=== PATIENT | female | born 1945 | race Caucasian/White ===

== ENCOUNTER 2019-03-14 06:00 | Outpatient (RCR) | payer MEDICARE, MEDICAID, SELFPAY | END 2019-04-13 00:01 | LOC: SPT 06:00 | PROVIDERS: Family Provider Family Medicine; Visit Provider Specialist | DX: M48.062 Spinal stenosis, lumbar region with neurogenic claudication (principal) | CPT/HCPCS: 97110 ×5; 97112 ×4; 97140; 97530 ==

== ENCOUNTER 2019-04-14 13:11 | Outpatient (RCR) | payer MEDICARE, MEDICAID, SELFPAY | END 2019-05-14 23:59 | disposition home or self-care (01) | LOC: SPT 13:11 | PROVIDERS: Family Provider Family Medicine; Visit Provider Specialist | DX: M48.062 Spinal stenosis, lumbar region with neurogenic claudication (principal) | CPT/HCPCS: 97110; 97112; 97140; 97530 ==

== ENCOUNTER 2019-04-15 10:55 | Inpatient (IN) | payer MEDICARE, MEDICAID, SELFPAY ==
[2019-04-15] VITALS (9 sets, daily range): BP systolic 143–155; BP diastolic 61–68; PULSE 59–89; RESP 16–22; TEMP 36.4–37.1; O2SAT 91–99; BMI 25.4
--- NOTE | 2019-04-15 11:15 | ED_ITS ---
Entered by Amanda Cheung, acting as scribe for HPI - Chest Pain General: Chief Complaint: Chest Pain Stated Complaint: Sent by doctor to have test Time Seen by Provider: 04/15/19 11:18 Source: patient Mode of arrival: ambulatory History of Present Illness: HPI narrative: 73 yo Female presents to ED with complaint of chest pain. Pt states that she was sent to the ED by Dr. Palacio to get checked out. Pt states that she has had open heart surgery before and has 2 stents in her carotid. Pt's family states that the patient has a leaking mitral valve. Pt describes pain as an ache that normally happens at night. Pt's family states that patient has also been having dizzy spells. Pt states that she can't stand up and feels like she is going to fall over. Pt states it feels like she might pass out. Pt states that her recently had a stroke and is home now but she has been under a lot of stress. Pt states that her symptoms have resolved now and she feels relaxed. Pt states she has had an aortic valve replacement. MD complaint: chest pain (aching) Pertinent past history: CABG Prior episodes: Yes Quality: tightness and aching Associated symptoms: Reports nausea; Deny abdominal pain, diaphoresis, dyspnea, fever(s) or vomiting Risk Factors: Coronary artery disease risk factors: hypertension Review of Systems General: Reports: 10 or more systems reviewed and unremarkable except in HPI and below Const: Denies: fever, chills, body aches, change in appetite, change in weight, fatigue, malaise, night sweats, diaphoresis, change in sleep pattern, daytime sleepiness or snoring Card: Reports: chest pain, lightheadedness and pre-syncope; Denies: edema, swelling of feet/ankles, shortness of breath on exertion, shortness of breath when lying down, leg pain with exertion or bluish discoloration of hands/feet Resp: Denies: shortness of breath, productive cough, non-productive cough, wheezing, stridor, pain on inspiration, change in phlegm color, coughing up blood or chest congestion GI: Reports: nausea; Denies: abdominal pain, vomiting, vomiting blood, coffee grounds in vomit, difficulty swallowing, heartburn/indigestion, feeling full early, diarrhea, con stipation, bloating, cramping, belching, excessive passing of gas, fecal incontinence, change in bowel habits, change in stool character, blood in stool or black tarry stool Neuro: Reports: dizziness PFSH ED PFSH: Statuses (acute, chronic, etc) shown below reflect problem list status as previously entered and may not be historically accurate Social History Smoking and tobacco status: former smoker Physical Exam Const: COMMON NORMALS: no apparent distress, average body habitus, oriented x3, no limitations, healthy appearing, alert and well nourished HENMT: COMMON NORMALS: normocephalic, EAC's normal, TM's normal bilaterally, external nose normal, moist oral mucous membranes, oropharynx normal and gingiva normal HEAD & SCALP: normocephalic NOSE: external nose normal EXTERNAL AUDITORY CANAL: EAC's normal TYMPANIC MEMBRANE: TM's normal bilaterally Neck/C-Spine: COMMON NORMALS: full ROM, supple and no JVD Resp: COMMON NORMALS: normal respiratory effort, no use of accessory muscles and percussion normal PERCUSSION: percussion normal Cardio: COMMON NORMALS: no JVD, regular rate, regular rhythm, S1 normal heart sound and S2 normal heart sound; negative for no murmurs (Harsh murmur - LLSB) RATE: regular rate RHYTHM: regular rhythm HEART SOUNDS: S1 normal and S2 normal GI: COMMON NORMALS: normal to inspection, nondistended, normoactive bowel sounds, soft to palpation, non-tender, no hepatosplenomegaly, no masses and no bruits PALPATION: Yes soft and Yes no hepatosplenomegaly Extremity: COMMON NORMALS: normal to inspection, full ROM, normal capillary refill and no pedal edema Neuro: COMMON NORMALS: oriented x3 SENSORIUM/ORIENTATION: Yes alert Skin: COMMON NORMALS: no rashes or lesions noted, no wounds, skin turgor normal, no jaundice, no petechiae and no mottling GENERAL SKIN EXAM: no rashes or lesions noted and turgor normal Course Vital Signs: Vital signs: Vital Signs Temperature 97.7 F 04/15/19 11:07 Pulse Rate 60 04/15/19 11:07 Respiratory Rate 16 04/15/19 11:07 Blood Pressure 148/65 04/15/19 11:07 Pulse Oximetry 91 04/15/19 11:07 MDM - Chest Pain MDM Narrative: Medical decision making narrative: 73-year-old female in with concerns of shortness of breath and some chest discomfort that is been longstanding. The patient had an extensive work-up here and had a negative d- dimer was found to be hypoxic and placed on supplemental oxygen which we were unable to wean her chest x-ray showed some pulmonary vascular congestion her BNP was. I suspect she has some valvular heart disease resulting in pulmonary edema. She has a subtherapeutic INR as well. I gave her extra dose of warfarin and some Lasix hep-locked her IV and talked with Dr. Palacio who was agreeable to admission in the hospital for further work-up treatment and management. Lab Data: Labs: Lab Results 04/15/19 04/15/19 04/15/19 Range/Units 12:04 12:04 12:04 WBC 8.5 (4.0-10.0) 10^3/ uL RBC 3.34 L (4.1-5.3) 10^6/u L Hgb 9.6 L (11.5-15.3) g/dL Hct 30.7 L (37.0-47.0) % MCV 91.9 (81-99) fL MCH 28.7 (28.0-34.0) pg MCHC 31.3 (30.0-36.0) g/dL RDW 14.5 (12.1-15.1) % Plt Count 227 (130-400) 10^3/c mm MPV 9.3 (7.4-10.4) fL Neut % (Auto) 79.6 % Lymph % (Auto) 10.9 % Lewis % (Auto) 7.2 % Eos % (Auto) 1.4 % Baso % (Auto) 0.4 % Neut # (Auto) 6.7 (1.8-7.7) 10^3/u L Lymph # (Auto) 0.9 (0.8-4.8) 10^3/u L Lewis # (Auto) 0.6 (0.2-0.9) 10^3/u L Eos # (Auto) 0.1 (0.0-0.8) 10^3/u L Baso # (Auto) 0.0 (0.0-0.1) 10^3/u L Nucleated RBC % (a uto) 0 % Nucleated RBCs # 0.0 /100WBC PT 20.00 H (10.5-13.3) SECO NDS INR 1.64 H (0.8-1.2) D-Dimer 0.59 (0-0.59) ug/mIFE U Sodium 139 (136-145) mmol/L Potassium 3.9 (3.5-5.1) mmol/L Chloride 105 (98-107) mmol/L Carbon Dioxide 23 (22-29) mmol/L Anion Gap 14.9 (5-19) BUN 17 (8-23) mg/dL Creatinine 1.0 H (0.5-0.9) mg/dL Glucose 109 H (74-106) mg/dL Calcium 9.4 (8.8-10.2) mg/Dl Total Bilirubin 0.5 (0.15-1.2) mg/dL AST 20 (0-32) U/L ALT 15 (0-33) U/L Alkaline Phosphata se 66 (35-105) IU/L Troponin T Baselin e (0-10) ng/mL NT-Pro-B Natriuret Pep 1767 H (0-125) pg/mL Total Protein 6.4 L (6.6-8.7) g/dL Albumin 4.4 (3.5-5.2) g/dL Globulin 2.0 (1.3-4.6) g/dL 04/15/19 Range/Units 12:04 WBC (4.0-10.0) 10^3/ uL RBC (4.1-5.3) 10^6/u L Hgb (11.5-15.3) g/dL Hct (37.0-47.0) % MCV (81-99) fL MCH (28.0-34.0) pg MCHC (30.0-36.0) g/dL RDW (12.1-15.1) % Plt Count (130-400) 10^3/c mm MPV (7.4-10.4) fL Neut % (Auto) % Lymph % (Auto) % Lewis % (Auto) % Eos % (Auto) % Baso % (Auto) % Neut # (Auto) (1.8-7.7) 10^3/u L Lymph # (Auto) (0.8-4.8) 10^3/u L Lewis # (Auto) (0.2-0.9) 10^3/u L Eos # (Auto) (0.0-0.8) 10^3/u L Baso # (Auto) (0.0-0.1) 10^3/u L Nucleated RBC % (a uto) % Nucleated RBCs # /100WBC PT (10.5-13.3) SECO NDS INR (0.8-1.2) D-Dimer (0-0.59) ug/mIFE U Sodium (136-145) mmol/L Potassium (3.5-5.1) mmol/L Chloride (98-107) mmol/L Carbon Dioxide (22-29) mmol/L Anion Gap (5-19) BUN (8-23) mg/dL Creatinine (0.5-0.9) mg/dL Glucose (74-106) mg/dL Calcium (8.8-10.2) mg/Dl Total Bilirubin (0.15-1.2) mg/dL AST (0-32) U/L ALT (0-33) U/L Alkaline Phosphata se (35-105) IU/L Troponin T Baselin e 15 H (0-10) ng/mL NT-Pro-B Natriuret Pep (0-125) pg/mL Total Protein (6.6-8.7) g/dL Albumin (3.5-5.2) g/dL Globulin (1.3-4.6) g/dL Discharge Plan Discharge Patient Disposition: Admitted As Inpatient Clinical Impression: Respiratory failure with hypoxia Qualifiers: Chronicity: acute Qualified Code(s): J96.01 - Acute respiratory failure with hypoxia Condition: Stable Referrals: Ruy Palacio MD [Family Provider] - Coding Level of Care Code ED Supervisor Airplane Flight Attendant for Chg Fwd Exam Problem Focused The documentation recorded by the Jonatan almazan Carmen, accurately reflects the service I personally performed and the decisions made by Bell juárez Charlie, DO
--- NOTE | 2019-04-15 11:28 | ECG_ITS ---
Measurements Intervals [place] Rate: 58 P: 82 [place]: 165 QRS: 3 QRSD: 121 T: 55 QT: 484 QTc: 475 SINUS BRADYCARDIA POSSIBLE RIGHT VENTRICULAR CONDUCTION DELAY [RSR (QR) IN V1/V2] PROLONGED QT INTERVAL Compared to ECG 11/07/2018 20:34:05 Prolonged QT interval now present Sinus arrhythmia no longer present Incomplete right bundle-branch block no longer present Myocardial infarct finding no longer present Electronically Signed On 04-15-2019 17:09:00 INTERNET MARKETING STRATEGIST by Arely Luevano M.D. [id number]
--- NOTE | 2019-04-15 11:28 | XR_ITS ---
WS: [id number] Portable AP upright chest, 04/15/2019 Clinical Data: Chest pain Comparison: Portable chest, 11/07/2018. Findings: No nodules, masses or effusions are seen. There is blunting of the left costophrenic angle unchanged. The heart is slightly enlarged. The pulmonary vascularity is minimally prominent. Midline sternotomy sutures are present. There is a left carotid stent. No pneumonia or pneumothorax is seen. XR/XR chest 1V portable [id number] Impression: 1. Mild cardiomegaly and minimal pulmonary vascular congestion. 2. Atherosclerosis.
--- NOTE | 2019-04-15 11:33 | PC.NURSE ---
Patient states chest pain has been intermittent for 6+ years now.
[2019-04-15 12:16] LABS: Basophils % 0.4 %; Eosinophils # 0.1 10^3/uL (0.0-0.8); Eosinophils % 1.4 %; Hematocrit 30.7 % (37.0-47.0); Hemoglobin 9.6 g/dL (11.5-15.3); Lymphocytes # 0.9 10^3/uL (0.8-4.8); Lymphocytes % 10.9 %; Mean Corpuscular HGB Conc 31.3 g/dL (30.0-36.0); Mean Corpuscular Hemoglobin 28.7 pg (28.0-34.0); Mean Corpuscular Volume 91.9 fL (81-99); Mean Platelet Volume 9.3 fL (7.4-10.4); Monocytes # 0.6 10^3/uL (0.2-0.9); Monocytes % 7.2 %; Neutrophils # 6.7 10^3/uL (1.8-7.7); Neutrophils % 79.6 %; Nucleated Red Blood Cells % 0 %; Platelet Count 227 10^3/cmm (130-400); Red Blood Count 3.34 10^6/uL (4.1-5.3); Red Cell Distribution Width 14.5 % (12.1-15.1); White Blood Count 8.5 10^3/uL (4.0-10.0)
[2019-04-15 12:34] LABS: INR 1.64 (0.8-1.2)
[2019-04-15 12:36] LABS: D Dimer 0.59 ug/mIFEU (0-0.59)
[2019-04-15 12:52] LABS: Alanine Aminotransferase 15 U/L (0-33); Albumin Level 4.4 g/dL (3.5-5.2); Alkaline Phosphatase 66 IU/L (35-105); Anion Gap 14.9 (5-19); Aspartate Amino Transferase 20 U/L (0-32); Blood Urea Nitrogen 17 mg/dL (8-23); Calcium 9.4 mg/Dl (8.8-10.2); Carbon Dioxide 23 mmol/L (22-29); Chloride 105 mmol/L (98-107); Glucose 109 mg/dL (74-106); NT Pro B Type Natriuretic Pept 1767 pg/mL (0-125); Potassium 3.9 mmol/L (3.5-5.1); Sodium 139 mmol/L (136-145); Total Bilirubin 0.5 mg/dL (0.15-1.2); Total Protein 6.4 g/dL (6.6-8.7)
[2019-04-15] MEDS: sodium chloride 0.9% 1,000 ML 999 ML IV (13:13)
[2019-04-15 14:23] LABS: Troponin(5th) Baseline 15 ng/mL (0-10)
[2019-04-15] MEDS: FUROsemide 10 mg/mL SDV 10mL 60 MG IVP (15:05)
--- NOTE | 2019-04-15 15:20 | PC.PHAR ---
Spoke to ER nurse regarding normal (home) dosing of patient and the ordered dose warfarin 5 mg was an extremely high dose for this patient and can cause a supratherapeutic INR (bleeding concerns). Nurse spoke with verbalizing my concern and wanted the original ordered 5 mg dose.
--- NOTE | 2019-04-15 16:48 | ECG_ITS ---
Measurements Intervals [place] Rate: 63 P: 113 HI: 132 QRS: -15 QRSD: 109 T: 7 QT: 384 QTc: 395 SINUS RHYTHM NONSPECIFIC T-WAVE ABNORMALITY Compared to ECG 04/15/2019 11:17:00 T-wave abnormality now present Sinus bradycardia no longer present Prolonged QT interval no longer present Electronically Signed On 04-16-2019 5:36:54 GALLERY OR MUSEUM GUIDE by Arely Luevano M.D. [id number]
--- NOTE | 2019-04-15 17:40 | USCV_ITS ---
Jennifer You Age: 73 Gender: F : 1945 Exam Date: 04/15/2019 18:21 Ordering Phys: Gurjit Luu DO Technologist: Danay Velazco Exam Location: [facility] [place] Indication: HEART FAILURE BP: / HR: 61 Rhythm: Sinus Technical Quality: Adequate MEASUREMENTS (Male / Female) Normal Values 2D ECHO LV Diastolic Diameter PLAX 4.7 cm 4.2 - 5.9 / 3.9 - 5.3 cm LV Systolic Diameter PLAX 3.5 cm IVS Diastolic Thickness 1.1 cm 0.6 - 1.0 / 0.6 - 0.9 cm IVS Systolic Thickness 1.1 cm LVPW Diastolic Thickness 1.6 cm 0.6 - 1.0 / 0.6 - 0.9 cm LVPW Systolic Thickness 1.4 cm LVOT Diameter 2.0 cm LV Ejection Fraction 2D Teich 48.8 % LV Ejection Fraction MOD 2C 68.4 % LV Ejection Fraction 2C AL 69.7 % LA Diameter 5.1 cm LA Width 3.6 cm LA Height 6.3 cm RA Width 3.5 cm RA Height 4.9 cm Aorta at Sinotubular Diameter 2.9 cm M-MODE LV Diastolic Diameter MM 4.8 cm 4.2 - 5.9 / 3.9 - 5.3 cm LV Systolic Diameter MM 3.4 cm LV Ejection Fraction MM Teich 57.9 % IVS Diastolic Thickness MM 1.1 cm 0.6 - 1.0 / 0.6 - 0.9 cm IVS Systolic Thickness MM 1.6 cm LVPW Diastolic Thickness MM 1.3 cm 0.6 - 1.0 / 0.6 - 0.9 cm LVPW Systolic Thickness MM 2.0 cm RV Diastolic Diameter MM 1.7 cm Aortic Annulus Diameter 2.9 cm LA Ao Ratio MM 1.8 MV E Point Septal Separation 0.4 cm DOPPLER AV Peak Velocity 300.0 cm/s LVOT Peak Velocity 101.0 cm/s AV Area Cont Eq vti 1.0 cm squared AV Area Cont Eq pk 1.1 cm squared MV Area PHT 4.5 cm squared Mitral E to A Ratio 2.7 MV E' Velocity 13.0 cm/s Mitral E to MV E' Ratio 16.7 Mitral E to LV E' Lateral Ratio 13.6 Mitral E to LV E' Septal Ratio 21.5 TR Peak Velocity 404.2 cm/s TR Peak Gradient 65.3 mmHg TR Mean Velocity 276.7 cm/s TR Mean Gradient 36.3 mmHg TR Velocity Time Integral 153.3 cm TV Peak E Velocity 88.0 cm/s Right Atrial Pressure 3.0 mmHg Pulmonary Artery Systolic Pressu 68.4 mmHg PV Peak Velocity 95.0 cm/s RV Acceleration Time 0.1 s RV Ejection Time 0.4 s RV AcT/ET 0.4 FINDINGS Left Ventricle Normal left ventricular cavity size. Normal left ventricular systolic function. No regional wall motion abnormalities. Left ventricular ejection fraction is estimated at 57 %. Due to atrial fibrillation diastolic function cannot be assessed accurately. Right Ventricle The right ventricle is normal in size and function. Right Atrium Moderately increased right atrial size. Left Atrium Moderately increased left atrial size. Mitral Valve Moderately thickened mitral valve. Moderate mitral annular calcification. No mitral valve stenosis. Moderate mitral valve regurgitation. Aortic Valve Aortic valve is not well-visualized. Moderate aortic valve stenosis, mean gradient 19.3 mmHg, JEANNETTE 1 cm squared. There is no regurgitation. Tricuspid Valve Moderate tricuspid valve regurgitation. Pulmonic Valve Structurally normal pulmonic valve without significant stenosis. There is no pulmonic regurgitation. Pericardium Normal pericardium without effusion. Aorta Normal ascending aorta dimension. CONCLUSIONS 1-Normal left ventricular cavity size. Normal left ventricular systolic function. No regional wall motion abnormalities. Left ventricular ejection fraction is estimated at 57 %. Due to atrial fibrillation diastolic function cannot be assessed accurately. 2-Moderate biatrial enlargement 3-Moderately thickened mitral valve. Moderate mitral annular calcification. No mitral valve stenosis. Moderate mitral valve regurgitation 4-Aortic valve is not well-visualized. Moderate aortic valve stenosis, mean gradient 19.3 mmHg, JEANNETTE 1 cm squared. There is no regurgitation. 5-Moderate tricuspid valve regurgitation. 6-Right atrial pressure is around 5 mm of mercury. 7-There is no pericardial effusion. 8-There are no prior echocardiogram studies to compare 10/12/2018. Radha Whatley MD (Electronically Signed) Final Date: 16 April 2019 14:18 S
[2019-04-15 18:41] LABS: Troponin(5th) Baseline 16 ng/mL (0-10)
[2019-04-15] MEDS: warfarin 2 mg Tablet PO (18:43)
--- NOTE | 2019-04-15 19:29 | P.HP_ITS ---
Providers/Chief Complaint Admitting Physician: Ruy Palacio MD Chief Complaint: Sent by doctor to have test History of Present Illness Jennifer You is a 73 year old female with past medical history of cardiovascular disease, mitral regurgitation, aortic valve replacement, intermittent A. fib with RVR, hypothyroidism, hypertension, depression who presented to the emergency department after being sent from clinic due to chest pain. The patient was in my office on the morning of 04/15/2019, and was complaining of chest pains in the central chest associated with nausea and dizziness. She was having problems with difficulty with staying upright while sitting. She is also had problems with her blood pressure bottoming out on her. She has also been quite dyspneic with exertion. For this reason she was sent to the emergency department for further evaluation. Review of Systems Const: Reports: fatigue and malaise; Denies: fever or night sweats ENMT: Denies: throat pain Card: Reports: chest pain, palpitations, lightheadedness, shortness of breath on exertion and shortness of breath when lying down; Denies: swelling of feet/ankles Resp: Reports: shortness of breath; Denies: productive cough, wheezing or stridor GI: Reports: nausea; Denies: abdominal pain, vomiting, diarrhea or constipation : Denies: flank pain Neuro: Reports: dizziness, vertigo, confusion and difficulty communicating thoughts; Denies: headache Psych: Reports: memory loss Medications/Allergies Home Medications Medication Instructions Recorded Confirmed Last Taken Type amiodarone 200 mg PO DAILY 04/15/19 04/15/19 04/15/19 History amlodipine [Norvasc] 10 mg PO DAILY 04/15/19 04/15/19 04/15/19 History cholecalciferol (vitamin D3) 5,000 unit PO DAILY 04/15/19 04/15/19 04/15/19 History [Vitamin D3] furosemide [Lasix] 20 mg PO DAILY 04/15/19 04/15/19 04/15/19 History hydrocodone-acetaminophen [[place]] 1 tab PO 6XD PRN 04/15/19 04/15/19 04/14/19 History levothyroxine 100 mcg PO DAILY 04/15/19 04/15/19 04/15/19 History lorazepam 0.5 mg PO BID PRN 04/15/19 04/15/19 04/13/19 History potassium chloride 20 meq PO BID 04/15/19 04/15/19 04/15/19 History sertraline [Zoloft] 25 mg PO DAILY 04/15/19 04/15/19 04/15/19 History simvastatin 40 mg PO DAILY 04/15/19 04/15/19 04/15/19 History spironolactone 25 mg PO DAILY 04/15/19 04/15/19 04/15/19 History warfarin See Rx Instructions .ROUTE .COMPLEX 04/15/19 04/15/19 04/15/19 History Allergies Allergy/AdvReac Type Severity Reaction Status Date / Time No Known Allergies Allergy Verified 04/15/19 11:14 PFSH Acute PFSH: Statuses (acute, chronic, etc) shown below reflect problem list status as previously entered and may not be historically accurate Medical History (Updated 04/15/19 @ 19:47 by Ruy Palacio MD) Atrial fibrillation (Acute) Depression (Acute) Hypercholesterolemia (Acute) Hypertension (Acute) Hypothyroidism (Acute) Surgical History (Updated 04/15/19 @ 19:38 by Ruy Palacio MD) H/O aortic valve replacement (Acute) H/O section (Acute) History of appendectomy (Acute) History of bilateral carotid endarterectomy (Acute) History of carpal tunnel surgery of left wrist (Acute) History of carpal tunnel surgery of right wrist (Acute) Family History (Updated 04/15/19 @ 19:39 by Ruy Palacio MD) Mother Dementia Father Clotting disorder Blood clots Social History (Updated 04/15/19 @ 19:40 by Ruy Palacio MD) Smoking and tobacco status: former smoker Alcohol intake: never Lives independently: Yes Household members: significant other Vitals/I&O/Wt Last Vital Signs Temp 97.5 F L 04/15/19 17:30 Pulse 61 04/15/19 17:30 Resp 22 H 04/15/19 17:30 BP 155/67 04/15/19 17:30 Pulse Ox 99 04/15/19 18:06 04/15/19 04/15/19 04/15/19 06:59 14:59 22:59 Output Total 300 / 300 Balance -300 / -300 Weight last 48 hrs Weight 69.4 kg Physical Exam Const: COMMON NORMALS: no apparent distress EXAM LIMITATIONS: altered mental status (Repeating information from this morning's visit.) GENERAL APPEARANCE: cooperative ORIENTATION/CONSCIOUSNESS: Yes awake, Yes oriented to person and Yes oriented to place HENMT: MOUTH: oral and palatal mucosa normal Neck/C-Spine: COMMON NORMALS: no lymphadenopathy and thyroid normal Resp: COMMON NORMALS: normal respiratory effort, no retractions and no use of accessory muscles AUSCULTATION: clear to auscultation bilaterally, no crackles, no rhonchi and no wheezes Cardio: COMMON NORMALS: regular rate, regular rhythm, S1 normal heart sound and S2 normal heart sound HEART SOUNDS: murmur systolic Intensity: IV/ GI: COMMON NORMALS: normal to inspection, nondistended, normoactive bowel sounds, soft to palpation, non-tender, no hepatosplenomegaly and no masses AUSCULTATION: Yes normoactive bowel sounds Extremity: NARRATIVE EXTREMITY EXAM: Trace edema in the bilateral lower extremities A&P Assessment and plan (1) Chest pain: The patient is having chest pains that are concerning for a cardiac cause. Results from the echocardiogram are currently pending. We will plan to get a cardiac stress test in the morning. She certainly has other vascular disease which would make a lesion in her heart more likely. Status: Acute Code(s): R07.9 - Chest pain, unspecified (2) Anemia: The underlying cause of her anemia is unclear at this time. I will get labs to check for signs of vitamin deficiencies as the underlying cause. We will get a fecal occult blood as well. Status: Acute Code(s): D64.9 - Anemia, unspecified (3) Fluid overload: The patient was given Lasix in the ER and symptomatically she has improved. I will give her another dose tomorrow and see if this helps to manage her fluid overload. Status: Acute Code(s): E87.70 - Fluid overload, unspecified (4) Mitral regurgitation: The patient's mitral regurgitation will be further evaluated by the echocardiogram. Status: Acute Code(s): I34.0 - Nonrheumatic mitral (valve) insufficiency (5) Respiratory failure with hypoxia: The patient's oxygen levels are improving with Lasix therapy. Continue with oxygen therapy for now. Status: Acute Qualifiers: Chronicity: acute Qualified Code(s): J96.01 - Acute respiratory failure with hypoxia Code(s): J96.91 - Respiratory failure, unspecified with hypoxia (6) Subtherapeutic international normalized ratio (INR): The patient's INR is currently subtherapeutic. We will increase the Coumadin dosing and have the patient wear SCDs for now. Recheck levels in the morning. Status: Acute Code(s): R79.1 - Abnormal coagulation profile Attestations Medical Necessity Statement*: The patient needs to be here for greater than 2 midnights secondary to chest pain and fluid overload. Time Spent in Patient Care: 16 - 35 minutes Coding Level of Care Code Acute Combination Technician for g Fwd Diagnoses Chest pain R07.9 Anemia D64.9 Fluid overload E87.70 Mitral regurgitation I34.0 Respiratory failure with hypoxia J96.01 Chronicity: acute Subtherapeutic international normalized ratio (INR) R79.1
--- NOTE | 2019-04-15 22:48 | ECG_ITS ---
Measurements Intervals [place] Rate: 63 P: 113 [place]: 132 QRS: -15 QRSD: 109 T: 7 QT: 384 QTc: 395 SINUS RHYTHM NONSPECIFIC T-WAVE ABNORMALITY Compared to ECG 04/15/2019 11:17:00 T-wave abnormality now present Sinus bradycardia no longer present Prolonged QT interval no longer present [id number]
[2019-04-16] VITALS (7 sets, daily range): BP systolic 119–152; BP diastolic 62–68; PULSE 58–76; RESP 17–18; TEMP 36.6–37.4; O2SAT 92–99
[2019-04-16 00:32] LABS: Troponin 5 6HR 18.12 ng/L (0-10)
[2019-04-16 00:42] LABS: Troponin 5 6HR Delta 2.12 ng/L (0-12)
[2019-04-16 06:08] LABS: Basophils % 0.4 %; Eosinophils # 0.2 10^3/uL (0.0-0.8); Eosinophils % 2.1 %; Hemoglobin 10.4 g/dL (11.5-15.3); Lymphocytes # 0.7 10^3/uL (0.8-4.8); Lymphocytes % 8.1 %; Mean Corpuscular HGB Conc 31.5 g/dL (30.0-36.0); Mean Corpuscular Hemoglobin 29.9 pg (28.0-34.0); Mean Corpuscular Volume 94.8 fL (81-99); Mean Platelet Volume 9.6 fL (7.4-10.4); Monocytes # 0.6 10^3/uL (0.2-0.9); Monocytes % 7.6 %; Neutrophils # 6.6 10^3/uL (1.8-7.7); Neutrophils % 81.4 %; Nucleated Red Blood Cells % 0 %; Platelet Count 241 10^3/cmm (130-400); Red Blood Count 3.48 10^6/uL (4.1-5.3); Red Cell Distribution Width 14.2 % (12.1-15.1); White Blood Count 8.2 10^3/uL (4.0-10.0)
[2019-04-16 06:25] LABS: INR 1.56 (0.8-1.2)
[2019-04-16 06:54] LABS: Blood Urea Nitrogen 12 mg/dL (8-23); Calcium 9.7 mg/Dl (8.8-10.2); Carbon Dioxide 24 mmol/L (22-29); Chloride 106 mmol/L (98-107); Glucose 95 mg/dL (74-106); Phosphorus 2.7 mg/dL (2.5-4.5); Sodium 142 mmol/L (136-145)
[2019-04-16 06:55] LABS: Alanine Aminotransferase 15 U/L (0-33); Albumin Level 4.3 g/dL (3.5-5.2); Alkaline Phosphatase 67 IU/L (35-105); Aspartate Amino Transferase 23 U/L (0-32); Globulin 1.9 g/dL (1.3-4.6); Iron 31 ug/dL (37-145); NT Pro B Type Natriuretic Pept 2186 pg/mL (0-125); Percent Saturation 9.4 % (20-50); Total Bilirubin 0.7 mg/dL (0.15-1.2); Total Iron Binding Capacity 327 mg/dL; Total Protein 6.2 g/dL (6.6-8.7); Unsaturated Iron Binding 296 ug/dL (112-347)
--- NOTE | 2019-04-16 07:00 | ECG_ITS ---
NAME OF STUDY: LEXISCAN SESTAMIBI STRESS TEST INDICATION: Chest Pain PROCEDURE: At the baseline, the blood pressure was 141/80 mmHg with a heart rate of 55 bpm. The electrocardiogram showed normal sinus rhythm, leftward axis. Poor anterior R wave progression. The Lexiscan was infused over a period of 20 seconds. A total of 0.4 milligrams of Lexiscan was infused. The stress phase was continued for a total of 5 minutes. Heart rate at the end of the stress phase was 75 bpm with a blood pressure 88/47 mmHg. The EKG at the peak infusion revealed no significant ST-T wave changes. Sestamibi was injected 20 seconds after the Lexiscan infusion. Blood pressure at the end of the recovery phase was 101/50 mmHg with a heart rate of 79 beats per minute. CONCLUSION: 1. Normal EKG response to LexiScan infusion. 2. No LexiScan induced chest pain or cardiac arrhythmia. 3. Normal blood pressure and heart rate response. 4. Sestamibi/sestamibi perfusion scan pending; see separate report. Electronically Signed On 04-16-2019 15:38:24 TRAVELING PLANT OPERATOR by Arely Luevano M.D. [id number]
[2019-04-16 07:44] LABS: Folate 8.3 ng/mL (4.8-37.3)
[2019-04-16 08:11] LABS: Vitamin B12 341 pg/mL (232-1245)
[2019-04-16] MEDS: regadenoson 0.4 Mg/5 ml Syringe IVP (08:56)
[2019-04-16] MEDS: amlodipine 10 mg Tablet PO (10:42)
[2019-04-16] MEDS: sertraline 50 mg Tablet PO (10:42)
[2019-04-16] MEDS: amiodarone 200 mg Tablet PO (10:43)
[2019-04-16] MEDS: levothyroxine 100 mcg Tablet PO (10:44)
[2019-04-16] MEDS: atorvastatin 40 mg Tablet 20 MG PO (10:44)
[2019-04-16] MEDS: cholecalciferol (vitamin D3) 5,000 unit Tablet 5000 UNIT PO (10:49)
[2019-04-16] MEDS: FUROsemide 10 mg/mL SDV 4mL 40 MG IVP (10:55)
--- NOTE | 2019-04-16 12:58 | PC.CHAP ---
Pastoral Care Encounter/Spiritual Assessment Type of Contact [x] Declined transportation dispatcher visit [] Patient/Family/Request visit [] Outpatient visit [] Follow-up visit [] Physician referral [] Code/Alert [] Routine visit [] Staff referral [] Actively dying [] Patient sleeping [] Family support [] [] Out of room [] Palliative care [] [] Receiving care in room [] Pre-surgical visit [] Trauma [] Long length of stay [] ICU visit [] Other: Relational/Emotional Strength [] Patient feels connected with others/family/visitors/staff [] Distress [] Loneliness/isolation [] Abandonment Spirituality of Patient [] Person of Cecilia [] Attends Mosque of their Cecilia [] Believes in Prayer [] Reads Bible or Restorationist materials [] There are Spiritual issues to be addressed Psych Tech Interventions [] Prayer [] Active listening [] Non-anxious presence [] Spiritual/emotional support [] Crisis/trauma care [] Spiritual counseling [] Bereavement support [] Provided bereavement packet [] Provided Bible/devotional materials [] Provided toy/stuffed animal, coloring book to patient or family member [] Completed spiritual assessment [] Provided Communion [] Anointing/[place] [] Salvation [] Other: Impact on Illness or Injury [] Angry [] Fearful [] Anxious [] Often cries [] Exhaustion [] Unable to work [] Unable to attend congregational [] Unable to walk/stand [] Unable to read [] Unable to drive [] Unable to eat/drink [] Unable to sleep [] Unable to be with family [] Other: Summary Patient declined visit; Sarah Cuadra Time spent with patient 2-minutes
--- NOTE | 2019-04-16 15:49 | PM.DCS ---
Discharge Providers Date of Admission: 04/15/19 15:47 Date of Discharge: 04/16/19 Attending Provider at Admission: Ruy Palacio MD Attending Provider at Discharge: Ruy Palacio MD Diagnoses at Discharge Discharge Diagnosis (1) Chest pain: Status: Acute (2) Anemia: Status: Acute (3) Fluid overload: Status: Acute (4) Mitral regurgitation: Status: Acute (5) Respiratory failure with hypoxia: Status: Acute Qualifiers: Chronicity: acute Qualified Code(s): J96.01 - Acute respiratory failure with hypoxia (6) Subtherapeutic international normalized ratio (INR): Status: Acute Reason for Visit Reason for Visit: Reason For Visit: Sent by doctor to have test Hospital Course Hospital Course: The patient presented to the hospital with chest pain. Her troponins were negative, however she continued to have chest pains. For this reason a cardiac stress test was done. It showed signs of subendocardial ischemia, however no signs of reversible ischemia at this time. This is likely secondary to hypertension. We will plan to treat this medically at this time. The patient also was found to have anemia, and her iron levels were found to be low. Her vitamin B12 levels were found to be in the low normal range. We will replace these as an outpatient. The patient's INR was found to be subtherapeutic. She is to follow-up with cardiology for further management of this. She is to take an extra dose at home. The patient was also found to have fluid overload in her lungs. She was given IV Lasix and responded well. She had good output and her breathing has improved. Her oxygen levels were initially low and these have also improved. The patient has longstanding mitral regurgitation and aortic stenosis. Repeat echocardiogram does not show signs of significant worsening of these and they are both in the moderate range. Currently the patient is feeling well and would like to be discharged home. She is stable for discharge currently. We will plan to follow-up with her in clinic next week. Physical Exam Narrative: EXAM NARRATIVE: The patient is alert and oriented. She is in no acute distress Respiratory: Clear to auscultation bilaterally without crackles, wheezes or rhonchi Cardiac: Grade 4/6 systolic murmur. Regular rate and rhythm at this time. GI: Soft, nontender, no hepatosplenomegaly. Extremities: Trace edema Discharge Data Data Completed and Pending: Completed Studies During Hospitalization Category Date Time Status Sestamibi Stress Test Request Routi ne Exams 04/16/19 07:00 Completed XR chest 1V odin ble [id number] Urgent Exams 04/15/19 11:28 Completed NM silvio perf SPECT r&s* [id number] Routin e Nuc Med 04/16/19 19:25 Completed CV echo complete* [id number] Urgent Ultrasound 04/15/19 17:40 Completed Pending at discharge Category Date Time Status Sestamibi Stress Test Request Routi ne Exams 04/15/19 19:21 Stop Req Occult Blood Stoo l Routine Lab 04/16/19 08:00 Ordered Labs from last 24 hours 04/16/19 04/16/19 04/16/19 05:30 05:30 05:30 WBC 8.2 RBC 3.48 L Hgb 10.4 L Hct 33.0 L MCV 94.8 MCH 29.9 MCHC 31.5 RDW 14.2 Plt Count 241 MPV 9.6 Neut % (Auto) 81.4 Lymph % (Auto) 8.1 Adams % (Auto) 7.6 Eos % (Auto) 2.1 Baso % (Auto) 0.4 Neut # (Auto) 6.6 Lymph # (Auto) 0.7 L Adams # (Auto) 0.6 Eos # (Auto) 0.2 Baso # (Auto) 0.0 Nucleated RBC % (a uto) 0 Nucleated RBCs # 0.0 PT 19.30 H INR 1.56 H Sodium 142 Potassium 4.0 Chloride 106 Carbon Dioxide 24 Anion Gap 16.0 BUN 12 Creatinine 0.9 Glucose 95 Calcium 9.7 Phosphorus 2.7 Magnesium 2.0 Iron 31 L TIBC 327 % Saturation 9.4 L Unsat Iron Binding 296 Total Bilirubin 0.7 AST 23 ALT 15 Alkaline Phosphata se 67 Troponin I 6 Hour Troponin I Hi Sens Del Troponin T Baselin e Troponin T 120 Min [place] Troponin T C-React Prot High Sens 0.900 H NT-Pro-B Natriuret Pep 2186 H Total Protein 6.2 L Albumin 4.3 Globulin 1.9 Vitamin B12 341 Folate 8.3 04/15/19 04/15/19 04/15/19 23:59 20:05 17:55 WBC RBC Hgb Hct MCV MCH MCHC RDW Plt Count MPV Neut % (Auto) Lymph % (Auto) Adams % (Auto) Eos % (Auto) Baso % (Auto) Neut # (Auto) Lymph # (Auto) Adams # (Auto) Eos # (Auto) Baso # (Auto) Nucleated RBC % (a uto) Nucleated RBCs # PT INR Sodium Potassium Chloride Carbon Dioxide Anion Gap BUN Creatinine Glucose Calcium Phosphorus Magnesium Iron TIBC % Saturation Unsat Iron Binding Total Bilirubin AST ALT Alkaline Phosphata se Troponin I 6 Hour 18.12 H Troponin I Hi Sens Del 2.12 Troponin T Baselin e 16 H Troponin T 120 Min [place] 17.50 H Delta Troponin T 1.50 C-React Prot High Sens NT-Pro-B Natriuret Pep Total Protein Albumin Globulin Vitamin B12 Folate Vitals: Last Vital Signs Temp 98.5 F 04/16/19 12:00 Pulse 61 04/16/19 12:00 Resp 18 04/16/19 12:00 BP 119/66 04/16/19 12:00 Pulse Ox 99 04/16/19 12:00 Discharge Plan Discharge Patient Disposition: Home, Self-Care Condition: Stable Prescriptions: New cyanocobalamin (vitamin B-12) 1,000 mcg Tablet 1,000 mcg PO DAILY Qty: 30 RF: 3 nitroglycerin [Nitrostat] 0.4 mg Tablet, Sublingual 0.4 mg sublingual Q5M PRN (Reason: Chest Pain) Qty: 25 RF: 0 ferrous sulfate 325 mg (65 mg iron) Tablet,Delayed Release (Dr/Ec) 325 mg PO BIDWM Qty: 60 RF: 3 Continued amiodarone 200 mg Tablet 200 mg PO DAILY RF: 0 Avalon 10-325 mg Tablet 1 tab PO 6XD PRN (Reason: pain) RF: 0 spironolactone 25 mg Tablet 25 mg PO DAILY RF: 0 simvastatin 40 mg Tablet 40 mg PO DAILY RF: 0 levothyroxine 100 mcg Tablet 100 mcg PO DAILY RF: 0 lorazepam 0.5 mg Tablet 0.5 mg PO BID PRN (Reason: Anxiety) RF: 0 Norvasc 10 mg Tablet 10 mg PO DAILY RF: 0 warfarin 1 mg Tablet See Rx Instructions .ROUTE .COMPLEX RF: 0 Vitamin D3 5,000 unit Tablet 5,000 unit PO DAILY RF: 0 potassium chloride 20 mEq Tablet Extended Release 20 meq PO BID RF: 0 Changed Lasix 20 mg Tablet 40 mg PO DAILY Qty: 0 RF: 0 Zoloft 25 mg Tablet 50 mg PO DAILY Qty: 0 RF: 0 Discharge Orders: Discharge Order (Routine); Ordered 04/16/19 Ordered By: Ruy Palacio Referrals: Ruy Palacio MD [Family Provider] - 1 week Discharge Diet: Cardiac Discharge Activity: Resume usual activity Activity Restrictions/Additional Instructions: If you are having increased shortness of breath or swelling, please take Lasix twice a day. Please follow-up with Dr. wilson for next week. Discharge Attestations Time Spent in Discharge Care*: less than 30 min Quality Metrics Clinical Quality Measures During this hospital stay, did patient experience: None Coding Level of Care Code Acute [place] Tender for Chg Fwd Diagnoses Chest pain R07.9 Anemia D64.9 Fluid overload E87.70 Mitral regurgitation I34.0 Respiratory failure with hypoxia J96.01 Chronicity: acute Subtherapeutic international normalized ratio (INR) R79.1
--- NOTE | 2019-04-16 19:25 | NMCV_ITS ---
NM MIBI/MIBI Stress/Rest [id number] Jennifer You Age: 73 Gender: F : 1945 Exam Date: 04/16/2019 07:56 Ordering Phys: Ruy Palacio MD Technologist: MAGDA Mendes Exam Location: [facility] [place] Indications: Chest Pressure STRESS TEST Please see separate stress test report in [facility] for full findings IMAGE PROTOCOL Rest/Stress 1 Lexiscan Day Radiopharmaceutical Dose (mCi) Administration Site Administered by Rest: Tc-99m 10.2 IV MAGDA Mendes Sestamibi Stress:Tc-99m 31.4 IV MAGDA Mendes Sestamibi Rest: 16-Apr-2019 60 Discovery 630 Stress: 16-Apr-2019 60 Discovery 630 0.4mg Lexiscan. Images obtained in supine and prone position. SPECT RESULTS Technical Quality: Good Raw Data Analysis: Normal, Breast attenuation Image Corrections: No attenuation or motion correction applied Summed Stress Score: 0 Summed Rest Score: 0 Summed Difference Score: 0 PERFUSION FINDINGS SPECT images demonstrate homogeneous tracer distribution throughout the myocardium. FUNCTIONAL RESULTS (calculated via Gated SPECT) Stress Image LV EF (%): 75 Stress EDV (mL):95 TID: 1.2 Stress ESV (mL):24 FUNCTIONAL FINDINGS: The left ventricle is normal in size. Transient Ischemia Dilatation of 1.2. There is normal left ventricular systolic function. The left ventricular ejection fraction is normal with a value of 75%. There is normal left ventricular wall thickening. IMPRESSIONS 1. Myocardial perfusion imaging is normal. 2. Overall left ventricular systolic function is normal without regional wall motion abnormalities. 3. The left ventricular ejection fraction is normal with a value of 75%. 4. Transient ischemic dilation index mildly elevated at 1.2. This may represent hypertensive response or subendocardial ischemia. 5. No prior similar studies to compare. Arely Luevano MD (Electronically Signed) Final Date: 16 April 2019 13:30 S
== END 2019-04-16 18:45 | disposition home or self-care (01) | DRG 313 ==
LOC: ER 14:57 → MEDSURG 15:48
PROVIDERS: Admitting Provider Family Medicine; Emergency Provider Family Medicine; Family Provider Family Medicine; Visit Provider Family Medicine
DX: R07.9 Chest pain, unspecified (principal); J96.01 Acute respiratory failure with hypoxia; D64.9 Anemia, unspecified; Z79.891 Long term (current) use of opiate analgesic; I34.0 Nonrheumatic mitral (valve) insufficiency; F32.9 Major depressive disorder, single episode, unspecified; I48.91 Unspecified atrial fibrillation; E78.00 Pure hypercholesterolemia, unspecified; I10 Essential (primary) hypertension; E03.9 Hypothyroidism, unspecified; Z95.2 Presence of prosthetic heart valve; Z87.891 Personal history of nicotine dependence; I25.10 Atherosclerotic heart disease of native coronary artery without angina pectoris; R79.1 Abnormal coagulation profile; E87.70 Fluid overload, unspecified
CPT/HCPCS: 36415; 71045; 78452; 80048; 80053; 82270; 82607; 82746; 83540; 83550; 83735; 83880; 84100; 84484; 85025; 85378; 85610; 86141; 93005; 93017; 93306; 96360; 96374; 96375; 97110; 99000; 99282; A9270; A9500; J1940; J2785; J7030

== ENCOUNTER → 2019-05-06 13:27 | Outpatient (BNVA) | payer MEDICARE, MEDICAID, SELFPAY | PROVIDERS: Family Provider Family Medicine; PCP Family Medicine; Visit Provider Nurse Practitioner | DX: M54.16 Radiculopathy, lumbar region (principal); M48.061 Spinal stenosis, lumbar region without neurogenic claudication; Z79.891 Long term (current) use of opiate analgesic | CPT/HCPCS: 99213 ==

== ENCOUNTER 2019-05-15 06:00 | Outpatient (RCR) | payer MEDICARE, MEDICAID, SELFPAY | END 2019-06-09 23:00 | disposition home or self-care (01) | LOC: SPT 06:00 | PROVIDERS: Family Provider Family Medicine; PCP Family Medicine; Visit Provider Specialist | DX: M48.062 Spinal stenosis, lumbar region with neurogenic claudication (principal) | CPT/HCPCS: 97110; 97112; 97140; 97530 ==

== ENCOUNTER → 2019-09-15 13:23 | Outpatient (BNVA) | payer MEDICARE, MEDICAID, SELFPAY | PROVIDERS: Family Provider Family Medicine; PCP Family Medicine; Visit Provider Anesthesiology | DX: M48.061 Spinal stenosis, lumbar region without neurogenic claudication (principal); M47.816 Spondylosis without myelopathy or radiculopathy, lumbar region; M54.16 Radiculopathy, lumbar region; M54.9 Dorsalgia, unspecified; Z79.891 Long term (current) use of opiate analgesic | CPT/HCPCS: 99213; 99214 ==

== ENCOUNTER 2019-09-16 13:21 | Outpatient (CLI) | payer MEDICARE, MEDICAID, SELFPAY ==
--- NOTE | 2019-09-16 14:16 | USCV_ITS ---
Kenyatta Jennifer Age: 73 Gender: F : 1945 Exam Date: 09/16/2019 14:29 Ordering Phys: Jero Davenport MD Technologist: Beth Denney Exam Location: [facility] [place] Indication: STENOSIS Risk Factors: Previous Vascular Surgery: Right Brachial BP: / Left Brachial BP: / Right Left Velocity (cm/s) Spectral Plaque Velocity (cm/s) Spectral Plaque Syst/Diast Broadening Syst/Diast Broadening 58.40/ 26.50 Prox CCA 24.80 / 12.80 68.40/ 29.80 Mid CCA 24.80 / 12.00 54.00/ 32.00 Distal CCA 18.80 / 8.50 86.00/ 22.10 Prox ICA 28.70 / 15.50 90.10/ 38.80 Mid ICA 29.50 / 15.50 142.80/42.20 Distal ICA 447.80/ 114.70 98.10 ECA 69.90 2.09 ICA/CCA 18.07 Antegrade Vertebral Antegrade 37.90/ 10.70 cm/s 87.70/ 26.30 cm/s Tri Subclavian Tri 127.4 132.9 0 0 FINDINGS Mild diffuse plaque in the common carotid arteries bilateral Elevated velocity in the distal part of the stented segment bilaterally Low velocity Doppler waveforms in the common carotid and internal carotid artery on the left side Antegrade flow in the vertebral arteries bilaterally CONCLUSIONS 1. 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 Elevated velocity in the distal stented segment of the right internal carotid artery, suggestive of 16 to 49% in-stent stenosis, possibly from intimal hyperplasia Compared to the study from 08/26/2017, the stenosis in the right ICA appears to be less severe. The stenosis on the left side appears to be at a different location in the stent. Dr Phan Steward MD [facility] (Electronically Signed) Final Date: 16 September 2019 18:36 S
== END 2019-09-16 13:22 | disposition home or self-care (01) ==
LOC: RAD 13:26
PROVIDERS: Family Provider Family Medicine; PCP Family Medicine; Visit Provider Surgery
DX: I65.21 Occlusion and stenosis of right carotid artery (principal)
CPT/HCPCS: 93880

== ENCOUNTER 2019-09-16 14:45 | Emergency (ER) | payer MEDICARE, MEDICAID, SELFPAY ==
[2019-09-16 14:46] VITALS: BMI 25.0
[2019-09-16 14:52] VITALS: BP 184/85; PULSE 70; RESP 22; TEMP 36.7; O2SAT 98
--- NOTE | 2019-09-16 15:01 | CT_ITS ---
WS: [id number] CT cervical spin wo con* [id number] REASON FOR EXAM: fall, hit head IV CONTRAST ADMINISTERED: None. TOTAL EXAM DLP: 458.[address] scans at [facility] use at least one of these dose optimization techniques: automat ed exposure control; mA and/or kV adjustment per patient size (includes targeted exams where dose is matched to clinical indication); or iterative reconstruction. FINDINGS: The craniocervical junction anatomy was normal. C1-C2 normal anatomical findings. C2-C3: Hypertrophy of the uncovertebral joints joints on the left are seen. Note there is evidence of stents in both carotid arteries. The exiting foramina were normal no disc bulge or herniation. No spinal stenosis. C3-C4: Mild degenerate changes of the articular facets bilaterally. Exiting foramina normal no disc b ulge or herniation. C4-C5: Bilateral hypertrophy of the articular facets. Exiting foramina normal. No disc bulge or herni ation. No spinal stenosis. C5-C6 normal vertebral alignment. Exiting foramina normal. Mild hypertrophy of the articular facets. No disc bulge or herniation. C6-C7: Left moderate foraminal stenosis. Spurring off the vertebral body on the left. No disc bulge o r herniation. No spinal stenosis. C7-T1: Normal vertebral alignment. Exiting foramina is normal. No disc bulge or herniation. No spinal stenosis. No fractures are seen in the cervical spine There is extensive facet arthropathy throughout the cervical spine. (Uncovertebral joints) CT/CT cervical spin wo con* [id number] IMPRESSION: Extensive facet arthropathy throughout the cervical spine (uncovertebral joints ) Stents in both carotid arteries. No fractures are seen. No abnormal signal in the spinal cord to suggest hemorrhage.
--- NOTE | 2019-09-16 15:01 | CT_ITS ---
WS: [id number] CT head wo con* [id number] REASON FOR EXAM: fall, hit head, on warfarin IV CONTRAST ADMINISTERED: None. TOTAL EXAM DLP: 823.[address] scans at [facility] use at least one of these dose optimization techniques: automat ed exposure control; mA and/or kV adjustment per patient size (includes targeted exams where dose is matched to clinical indication); or iterative reconstruction. FINDINGS: This study shows frontal atrophy changes. The arceo and white matter interfaces are otherwise normal. No hemorrhage, mass effect or infarction. The ventricles are basically normal. No paraventricular lesions are seen. The jose and posterior fossa were normal. No hemorrhage changes in the posterior fossa are identified . The calvarium show no abnormalities. The paranasal sinuses were normal. The orbits show no abnormalities. The mastoid air cells are normal. CT/CT head wo con* [id number] IMPRESSION: Mild frontal atrophy. No evidence of intracranial hemorrhage.
--- NOTE | 2019-09-16 15:02 | XR_ITS ---
WS: [id number] XR chest 1V portable [id number] REASON FOR EXAM: chest pain FINDINGS: Borderline cardiomegaly. There is evidence of mitral valve replacement with sternotomy changes. The overall appearance of the chest is similar to April 15, 2019. The peripheral lungs are well aerated no pneumonia pleural effusion pulmonary edema, The hilum and apices normal. No osseous abnormalities. XR/XR chest 1V portable [id number] IMPRESSION: Mitral valve replacement Borderline cardiomegaly Sternotomy changes
--- NOTE | 2019-09-16 15:13 | W.ED.FALL ---
HPI - Fall General: Chief Complaint: Fall Stated Complaint: FALL Time Seen by Provider: 09/16/19 14:46 History of Present Illness: HPI Narrative: This patient is a 73-year-old female who was here in the hospital to have a carotid ultrasound done. This was completed and she was on her way out of the hospital when she says that she tripped over her feet and fell. She says that she hit her head and has some neck pain but denies syncope as the cause of her fall. She denies loss of consciousness. She has a mechanical heart valve and is on warfarin although she notes she has been off it for the past 2 days due to an INR of 5. She is worried about bleeding in her head. She has had heart attacks and is on amiodarone as well. She has had procedures on her carotid arteries and she said the ultrasound today was just a follow-up, not related to any ongoing symptoms. She denies feeling poorly before she fell but is now complaining of chest pain. She is not sure if it is chest pain related to her heart or from the fall. She also has chronic back pain and so there is nothing specifically different about that is just flared up from falling. She denies weakness, numbness, tingling in any of her extremities. MD complaint: fall Onset (ago): unknown (Just before arrival) Fall from: standing Fall witnessed: yes, by bystander Place fall occurred: other (Here in the hospital) Loss of consciousness: None Prolonged down time: no Symptoms prior to fall: none Context: tripped/slipped Location of injury: head and neck Location of injury - extremities: Right: elbow Associated symptoms-after fall: Reports chest pain and short of breath; Denies abdominal pain, headache(s) or neck pain Review of Systems General: Reports: 10 or more systems reviewed and unremarkable except in HPI and below Const: Denies: fever(s), chills, fatigue or malaise Eyes: Denies: change in vision ENMT: Denies: odynophagia Card: Reports: chest pain Resp: Denies: dyspnea, productive cough or non-productive cough GI: Denies: abdominal pain, nausea or vomiting : Denies: flank pain or difficulty voiding Musc: Denies: neck pain or back pain Skin/Breast: Denies: rash Neuro: Denies: headache(s), numbness in extremities or weakness in extremities Cristobal/Lymph: Denies: easy bruising or easy bleeding PFSH ED PFSH: Medical History Arthritis, lumbar spine Atrial fibrillation Chronic lumbar radiculopathy Depression Encounter for long-term opiate analgesic use Hypercholesterolemia Hypertension Hypothyroidism Spinal stenosis, lumbar region without neurogenic claudication Surgical History Aortic valve replaced 2000 H/O aortic valve replacement H/O section History of appendectomy History of bilateral carotid endarterectomy History of carpal tunnel surgery of left wrist History of carpal tunnel surgery of right wrist Family History Mother Dementia Father Clotting disorder Blood clots Social History Smoking and tobacco status: former smoker Alcohol intake: never Lives independently: Yes Household members: significant other Physical Exam Const: COMMON NORMALS: patient oriented x3, no limitations and alert GENERAL APPEARANCE: cooperative and anxious HENMT: HEAD & SCALP: hematoma (Right forehead) FACE & SINUS: normal facial exam Eye: GENERAL EYE: appearance normal, both eyes and all related structures Neck/C-Spine: GENERAL: No tracheal deviation CAROTIDS: Yes other (Scar from carotid surgery) CERVICAL SPINE: No Cervical spine tenderness, No step off deformity and Yes other (Diffuse tenderness over the posterior neck, some pain with range of motion.) Chest: COMMONS NORMALS: normal inspection of the chest Resp: COMMON NORMALS: normal respiratory effort, No use of accessory muscles and clear to auscultation bilaterally AUSCULTATION: clear to auscultation bilaterally Cardio: COMMON NORMALS: No murmurs present (Cardio) RHYTHM: abnormal rhythm irregularly irregular GI: COMMON NORMALS: Normal to inspection, nondistended, normoactive bowel sounds present, Soft to palpation and non-tender INSPECTION: Yes normal to inspection AUSCULTATION: Yes normoactive bowel sounds PALPATION: Yes Soft to palpation Back/Pelvis: COMMON NORMALS: thoracic and lumbar spine normal to inspection Extremity: COMMON NORMALS: normal to inspection NARRATIVE EXTREMITY EXAM: Complains of pain around the right elbow, normal to exam with good range of motion, no deformity. Neuro: COMMON NORMALS: patient oriented x3, moves all extremities, no focal motor deficits and no sensory deficits noted SENSORIUM/ORIENTATION: Yes alert Psych: COMMON NORMALS: mental status grossly normal, cooperative and normal affect Skin: COMMON NORMALS: no rashes or lesions noted and turgor normal GENERAL SKIN EXAM: no rashes or lesions noted and turgor normal Course ED course: Patient did well in the ED. She continued to deny any loss of consciousness or syncope. Her chest pain resolved. Her EKG and troponins were unchanged. CT was negative. Her INR came back at 2.3 and she had already been instructed to restart her Coumadin tonight. I reassured her that that seemed like a reasonable plan. Vital Signs: Vital signs: Vital Signs Temperature 98.1 F 09/16/19 14:52 Pulse Rate 60 09/16/19 17:50 Respiratory Rate 18 09/16/19 17:50 Blood Pressure 147/72 09/16/19 17:50 Pulse Oximetry 97 09/16/19 17:50 MDM - Fall MDM Narrative: Medical decision making narrative: Fall in a patient on warfarin. She knows that her INR was 5 a few days ago so she has not been taking her Coumadin. CT of head and neck ordered. Labs and INR ordered. She also had some chest pain and has a cardiac history and EKG and troponins were done. Lab Data: Labs: Lab Results 09/16/19 09/16/19 09/16/19 Range/Units 15:37 16:20 16:20 WBC 11.3 H (4.0-10.0) 10^3/ uL RBC 4.15 (4.1-5.3) 10^6/u L Hgb 13.1 (11.5-15.3) g/dL Hct 40.8 (37.0-47.0) % MCV 98.3 (81-99) fL MCH 31.6 (28.0-34.0) pg MCHC 32.1 (30.0-36.0) g/dL RDW 13.2 (12.1-15.1) % Plt Count 191 (130-400) 10^3/c mm MPV 10.3 (7.4-10.4) fL Neut % (Auto) 75.2 % Lymph % (Auto) 16.3 % [place] % (Auto) 6.9 % Eos % (Auto) 0.8 % Baso % (Auto) 0.4 % Neut # (Auto) 8.5 H (1.8-7.7) 10^3/u L Lymph # (Auto) 1.8 (0.8-4.8) 10^3/u L [place] # (Auto) 0.8 (0.2-0.9) 10^3/u L Eos # (Auto) 0.1 (0.0-0.8) 10^3/u L Baso # (Auto) 0.0 (0.0-0.1) 10^3/u L Nucleated RBC % (a uto) 0 % Nucleated RBCs # 0.0 /100WBC PT (10.5-13.3) SECO NDS INR (0.8-1.2) Sodium 138 (136-145) mmol/L Potassium 4.7 (3.5-5.1) mmol/L Chloride 101 (98-107) mmol/L Carbon Dioxide 26 (22-29) mmol/L Anion Gap 15.7 (5-19) BUN 18 (8-23) mg/dL Creatinine 1.1 H (0.5-0.9) mg/dL Glucose 96 (65-115) mg/dL Calculated Osmolal ity 282 L (285-295) mOsm/k g Calcium 9.3 (8.5-10.5) mg/dL Total Bilirubin 0.6 (0.15-1.2) mg/dL AST 31 (0-32) U/L ALT 26 (0-33) U/L Alkaline Phosphata se 59 (35-105) IU/L Troponin T Baselin e 16 H (0-10) ng/mL Total Protein 7.1 (6.6-8.7) g/dL Albumin 4.5 (3.5-5.2) g/dL Globulin 2.6 (1.3-4.6) g/dL 09/16/19 Range/Units 16:20 WBC (4.0-10.0) 10^3/ uL RBC (4.1-5.3) 10^6/u L Hgb (11.5-15.3) g/dL Hct (37.0-47.0) % MCV (81-99) fL MCH (28.0-34.0) pg MCHC (30.0-36.0) g/dL RDW (12.1-15.1) % Plt Count (130-400) 10^3/c mm MPV (7.4-10.4) fL Neut % (Auto) % Lymph % (Auto) % [place] % (Auto) % Eos % (Auto) % Baso % (Auto) % Neut # (Auto) (1.8-7.7) 10^3/u L Lymph # (Auto) (0.8-4.8) 10^3/u L [place] # (Auto) (0.2-0.9) 10^3/u L Eos # (Auto) (0.0-0.8) 10^3/u L Baso # (Auto) (0.0-0.1) 10^3/u L Nucleated RBC % (a uto) % Nucleated RBCs # /100WBC PT 25.50 H (10.5-13.3) SECO NDS INR 2.23 H (0.8-1.2) Sodium (136-145) mmol/L Potassium (3.5-5.1) mmol/L Chloride (98-107) mmol/L Carbon Dioxide (22-29) mmol/L Anion Gap (5-19) BUN (8-23) mg/dL Creatinine (0.5-0.9) mg/dL Glucose (65-115) mg/dL Calculated Osmolal ity (285-295) mOsm/k g Calcium (8.5-10.5) mg/dL Total Bilirubin (0.15-1.2) mg/dL AST (0-32) U/L ALT (0-33) U/L Alkaline Phosphata se (35-105) IU/L Troponin T Baselin e (0-10) ng/mL Total Protein (6.6-8.7) g/dL Albumin (3.5-5.2) g/dL Globulin (1.3-4.6) g/dL Discharge Plan Discharge Patient Disposition: Home, Self-Care Clinical Impression: Fall Qualifiers: Encounter type: initial encounter Qualified Code(s): W19.XXXA - Unspecified fall, initial encounter Head injury Qualifiers: Encounter type: initial encounter Qualified Code(s): S09.90XA - Unspecified injury of head, initial encounter Condition: Stable Prescriptions: No Action hydrocodone-acetaminophen 10-325 mg tablet 1 tab PO TID PRN (Reason: pain) 30 Days Qty: 180 RF: 0 Palmer 10-325 mg tablet 1 tab PO 6XD PRN (Reason: pain) 30 Days Qty: 180 RF: 0 warfarin 1 mg tablet See Rx Instructions .ROUTE DIRECTED RF: 0 amiodarone 200 mg Tablet 200 mg PO DAILY RF: 0 spironolactone 25 mg Tablet 25 mg PO DAILY RF: 0 simvastatin 40 mg Tablet 40 mg PO DAILY RF: 0 levothyroxine 100 mcg Tablet 100 mcg PO DAILY RF: 0 lorazepam 0.5 mg Tablet 0.5 mg PO BID PRN (Reason: Anxiety) RF: 0 cholecalciferol (vitamin D3) [Vitamin D3] 5,000 unit Tablet 5,000 unit PO DAILY RF: 0 potassium chloride 20 mEq Tablet Extended Release 20 meq PO BID RF: 0 cyanocobalamin (vitamin B-12) 1,000 mcg Tablet 1,000 mcg PO DAILY Qty: 30 RF: 3 nitroglycerin [Nitrostat] 0.4 mg Tablet, Sublingual 0.4 mg sublingual Q5M PRN (Reason: Chest Pain) Qty: 25 RF: 0 ferrous sulfate 325 mg (65 mg iron) Tablet,Delayed Release (Dr/Ec) 325 mg PO BIDWM Qty: 60 RF: 3 sertraline [Zoloft] 25 mg Tablet 50 mg PO DAILY Qty: 0 RF: 0 furosemide [Lasix] 20 mg Tablet 40 mg PO DAILY Qty: 0 RF: 0 donepezil 5 mg Tablet 5 mg PO BEDTIME RF: 0 amlodipine 2.5 mg Tablet 2.5 mg PO DAILY RF: 0 Referrals: Ruy Palacio MD [Primary Care Provider] - Discharge Diet: Usual diet Discharge Activity: Resume usual activity Patient Instructions: Minor Head Injury (ED) Activity Restrictions/Additional Instructions: Return to the emergency department for any new or worsening symptoms. Restart your Coumadin as prescribed tonight. Follow-up with your primary care doctor. Discharge Date/Time: 09/16/19 17:50 Coding Level of Care Code ED Quill Buncher And Sorter for Giovani Fwd Exam Comprehensive
[2019-09-16] MEDS: ondansetron 2 mg/ML SDV 2 mL 4 MG IVP (15:37)
[2019-09-16 15:38] VITALS: RESP 18
[2019-09-16] MEDS: morphine 4 mg/mL SDV 1 mL IVP (15:38)
[2019-09-16 15:42] LABS: Basophils % 0.4 %; Eosinophils # 0.1 10^3/uL (0.0-0.8); Eosinophils % 0.8 %; Hematocrit 40.8 % (37.0-47.0); Hemoglobin 13.1 g/dL (11.5-15.3); Lymphocytes # 1.8 10^3/uL (0.8-4.8); Lymphocytes % 16.3 %; Mean Corpuscular HGB Conc 32.1 g/dL (30.0-36.0); Mean Corpuscular Hemoglobin 31.6 pg (28.0-34.0); Mean Corpuscular Volume 98.3 fL (81-99); Mean Platelet Volume 10.3 fL (7.4-10.4); Monocytes # 0.8 10^3/uL (0.2-0.9); Monocytes % 6.9 %; Neutrophils # 8.5 10^3/uL (1.8-7.7); Neutrophils % 75.2 %; Nucleated Red Blood Cells % 0 %; Platelet Count 191 10^3/cmm (130-400); Red Blood Count 4.15 10^6/uL (4.1-5.3); Red Cell Distribution Width 13.2 % (12.1-15.1); White Blood Count 11.3 10^3/uL (4.0-10.0)
[2019-09-16 16:39] LABS: INR 2.23 (0.8-1.2)
[2019-09-16 16:47] LABS: Alanine Aminotransferase 26 U/L (0-33); Albumin Level 4.5 g/dL (3.5-5.2); Alkaline Phosphatase 59 IU/L (35-105); Anion Gap 15.7 (5-19); Aspartate Amino Transferase 31 U/L (0-32); Blood Urea Nitrogen 18 mg/dL (8-23); Calcium 9.3 mg/dL (8.5-10.5); Carbon Dioxide 26 mmol/L (22-29); Chloride 101 mmol/L (98-107); Globulin 2.6 g/dL (1.3-4.6); Glucose 96 mg/dL (65-115); Osmolality Calculated 282 mOsm/kg (285-295); Potassium 4.7 mmol/L (3.5-5.1); Sodium 138 mmol/L (136-145); Total Bilirubin 0.6 mg/dL (0.15-1.2); Total Protein 7.1 g/dL (6.6-8.7)
[2019-09-16 16:53] LABS: Troponin(5th) Baseline 16 ng/mL (0-10)
--- NOTE | 2019-09-16 17:02 | ECG_ITS ---
Measurements Intervals [place] Rate: 68 P: 109 IA: 146 QRS: -8 QRSD: 112 T: 61 QT: 431 QTc: 461 SINUS RHYTHM INCOMPLETE RIGHT BUNDLE BRANCH BLOCK [90+ ms QRS DURATION, TERMINAL R IN V1/V2, 40+ ms S IN I/aVL/V4/V5/V6] SEPTAL MYOCARDIAL INFARCTION , OF INDETERMINATE AGE [40+ ms Q WAVE IN V1/V2] Compared to ECG 04/15/2019 17:43:36 Incomplete right bundle-branch block now present Myocardial infarct finding now present T-wave abnormality no longer present Electronically Signed On 09-16-2019 16:37:12 CDT by Herminio Godfrey M.D. [email or web address]
[2019-09-16 17:50] VITALS: BP 147/72; PULSE 60; RESP 18; O2SAT 97
== END 2019-09-16 17:50 | disposition home or self-care (01) ==
PROVIDERS: Emergency Provider Emergency Medicine; PCP Family Medicine
DX: S09.90XA Unspecified injury of head, initial encounter (principal); W01.198A Fall on same level from slipping, tripping and stumbling with subsequent striking against other object, initial encounter; Y92.239 Unspecified place in hospital as the place of occurrence of the external cause; Z79.01 Long term (current) use of anticoagulants; I48.91 Unspecified atrial fibrillation; I10 Essential (primary) hypertension; Z87.891 Personal history of nicotine dependence
CPT/HCPCS: 12345; 36415; 70450; 71045; 72125; 80053; 84484; 85025; 85610; 93005; 96374; 96375; 99282; 99284; J2270; J2405

== ENCOUNTER → 2019-12-02 13:39 | Outpatient (BNVA) | payer MEDICARE, MEDICAID, SELFPAY | PROVIDERS: PCP Family Medicine; Visit Provider Anesthesiology | DX: M54.41 Lumbago with sciatica, right side (principal); M48.061 Spinal stenosis, lumbar region without neurogenic claudication; M47.816 Spondylosis without myelopathy or radiculopathy, lumbar region; M54.16 Radiculopathy, lumbar region; M54.9 Dorsalgia, unspecified; Z79.891 Long term (current) use of opiate analgesic | CPT/HCPCS: 99213; 99214 ==

== ENCOUNTER → 2019-12-07 11:58 | Outpatient (BNVA) | payer MEDICARE, MEDICAID, SELFPAY | PROVIDERS: PCP Family Medicine; Visit Provider Internal Medicine Cardiovascular Disease | DX: E78.00 Pure hypercholesterolemia, unspecified (principal); E78.5 Hyperlipidemia, unspecified | CPT/HCPCS: 80061 ==

== ENCOUNTER 2019-12-23 10:28 | Outpatient (CLI) | payer MEDICARE, MEDICAID, SELFPAY ==
--- NOTE | 2019-12-23 10:36 | XR_ITS ---
WS: [id number] Lumbar spine, 3 views, 12/23/2019 Clinical Data: LUMBAR BACK PAIN W/RADICULOPATHY Comparison: Lateral lumbar spine, 12/24/2018. Findings: No compression fractures or subluxation is seen. There is disc space narrowing at L1-L2, L3-L4 and L4 -L5. There is subluxation of 0.5 cm of L4 on L5. Minimal osteoarthritic spurring of all lumbar verteb ral bodies is noted. There is osteoporosis. There is calcification of the wall of the abdominal aorta but no aneurysm.. The transverse processes and SI joints are normal. Result large amount of fecal material throughout the colon. XR/XR lumbar spine 2-3V* [id number] Impression: 1. Degenerative disc narrowing at multiple levels. 2. Anterior subluxation of L4 on L5 0.5 cm.
--- NOTE | 2019-12-23 10:36 | XR_ITS ---
WS: [id number] Thoracic spine, 3 views, 12/23/2019 Clinical Data: THORACIC REGION BACK PAIN Comparison: Thoracic spine, 08/27/2018. Findings: No compression fractures are seen. The disc heights are normal. There is diffuse osteoporosis. There is indistinctness of the anterior aspect of the T9 vertebral body which could represent erosion. The paravertebral areas are normal. The patient has had an aortic valve replacement. There is dilatat ion of the ascending thoracic aorta measuring 7.3 cm. There are vascular stents probably within the c arotid arteries. XR/XR thoracic spine 3V* [id number] Impression: 1. Negative for compression fracture. 2.. Recommend CT scan of the mid and lower thoracic spine to evaluate possible erosion of the anterior aspect of T9 vertebral body. 3. Dilatation of the ascending thoracic aorta.
== END 2019-12-23 10:29 | disposition home or self-care (01) ==
LOC: RAD 10:31
PROVIDERS: PCP Family Medicine; Visit Provider Family Medicine
DX: M54.6 Pain in thoracic spine (principal); M54.16 Radiculopathy, lumbar region; S33.140A Subluxation of L4/L5 lumbar vertebra, initial encounter; X58.XXXA Exposure to other specified factors, initial encounter
CPT/HCPCS: 72072; 72100

== ENCOUNTER 2019-12-31 10:22 | Outpatient (CLI) | payer MEDICARE, MEDICAID, SELFPAY ==
--- NOTE | 2019-12-31 | CT_ITS ---
WS: [id number] CT THORACIC SPINE TECHNIQUE: Noncontrast CT of the thoracic spine with coronal and sagittal reformatted images. CLINICAL INFORMATION: EVALUATE FOR EROSION SEEN ON XRAY COMPARISON: Radiograph December 23, 2019 DLP: 1146.[address] scans at [facility] use at least one of these dose optimization techniques: automat ed exposure control; mA and/or kV adjustment per patient size (includes targeted exams where dose is matched to clinical indication); or iterative reconstruction. FINDINGS: Mild thoracic curve. Mild thoracic kyphosis. No acute appearing compression fractures. Disc space hei ghts and vertebral body heights are well preserved. No significant central canal stenosis. Moderate f acet arthropathy lower thoracic spine. T9 vertebral body appears normal. No significant lytic or eros jasvir lesions. Right facet arthropathy osteophytic ridging at T9-T10 with slight narrowing of the right subarticular recess and mild central canal stenosis. Aortic calcification. Adrenal glands are normal. Slight atelectasis in the lung bases. CT/CT thoracic spin wo con* [id number] IMPRESSION: 1. Mild thoracic curve. Mild thoracic kyphosis. No acute appearing compression fractures. 2. No significant central canal stenosis. 3. Moderate facet arthropathy lower thoracic spine. 4. T9 vertebral body appears normal. No significant lytic or erosive lesions.
== END 2019-12-31 10:23 | disposition home or self-care (01) ==
LOC: RADWPI 10:28
PROVIDERS: PCP Family Medicine; Visit Provider Family Medicine
DX: M54.6 Pain in thoracic spine (principal); M40.294 Other kyphosis, thoracic region; M47.894 Other spondylosis, thoracic region
CPT/HCPCS: 72128

== ENCOUNTER 2020-01-17 09:26 | Outpatient (CLI) | payer MEDICARE, MEDICAID, SELFPAY ==
--- NOTE | 2020-01-17 09:38 | CT_ITS ---
WS: [id number] CTA scan of the head and neck. Additional two-dimensional coronal and sagittal reconstruction along w ith MIP images was performed. 01/17/2020 Clinical Data: BILATERAL CAROTID STENOSIS Comparison: CTA head and neck, 10/06/2018. DLP: 896.[address] scans at [facility] use at least one of these dose optimization techniques: automat ed exposure control; mA and/or kV adjustment per patient size (includes targeted exams where dose is matched to clinical indication); or iterative reconstruction. Findings: The carotid arteries bifurcate normally into the internal carotid arteries. The patient has had bilat eral carotid artery stents added. The stents have developed stenoses over the years and there is a ri ght stenosis of 87.9% and a left of 68%. Vertebral arteries show no change from before. There is stenosis of the origin of the right vertebral artery and left vertebral artery is larger. The intracerebral circulation shows that the internal carotid arteries bifurcate into the anterior an d middle cerebral arteries. The basilar arterial system is normal. No aneurysms are seen. There is no prevertebral soft tissue swelling. No lymphadenopathy is seen. The cervical spine shows d egenerative disc narrowing and osteoarthritic spurring. The parotid glands are normal. The paraphary ngeal areas are unremarkable. The larynx is symmetrical. The thyroid gland is atrophic. The ventricular system is modestly dilated. No recent infarct or hemorrhage is seen. There are no abn ormal intracerebral masses. No abnormal contrast enhancement of any structure occurs. There is no ero da or destruction of the cranium. The mastoid air cells show no acute mastoiditis. The internal aud itory canals, sella turcica, intraorbital contents and paranasal sinuses are unremarkable. CT/CT angio headneck* [id number] Impression: 1. Carotid stents have developed stenoses, left 68% and right 87.9%. 2. No change from prior CTA of the head and neck.
[2020-01-17] MEDS: iodixanol 320 mg/mL 100mL Btl IV (10:14)
== END 2020-01-17 09:27 | disposition home or self-care (01) ==
LOC: RADWPI 09:30
PROVIDERS: PCP Family Medicine; Visit Provider Surgery
DX: I65.23 Occlusion and stenosis of bilateral carotid arteries (principal)
CPT/HCPCS: 70496; 70498; Q9967

== ENCOUNTER → 2020-01-28 12:45 | Outpatient (BNVA) | payer MEDICARE, MEDICAID, SELFPAY | PROVIDERS: PCP Family Medicine; Visit Provider Anesthesiology | DX: M48.061 Spinal stenosis, lumbar region without neurogenic claudication (principal); M47.816 Spondylosis without myelopathy or radiculopathy, lumbar region; M54.16 Radiculopathy, lumbar region; M54.9 Dorsalgia, unspecified; Z79.891 Long term (current) use of opiate analgesic | CPT/HCPCS: 99212; 99214 ==

== ENCOUNTER 2020-03-26 17:26 | Observation (INO) | payer MEDICARE, MEDICAID, SELFPAY ==
[2020-03-26] VITALS (7 sets, daily range): BP systolic 112–197; BP diastolic 42–78; PULSE 43–67; RESP 12–18; TEMP 36.6–37.2; O2SAT 92–96; BMI 25.0
--- NOTE | 2020-03-26 17:30 | XRR_ITS ---
PROCEDURE INFORMATION: Exam: XR Chest, 1 View Exam date and time: 03/26/2020 5:31 PM Age: 74 years old Clinical indication: Chest pain; Type not specified; Additional info: Cp TECHNIQUE: Imaging protocol: XR of the chest Views: 1 view. COMPARISON: CR XR chest 1V portable [id number] 09/16/2019 3:39 PM FINDINGS: Tubes, catheters and devices: EKG leads. Lungs: Unremarkable. No consolidation. Pleural space: Unremarkable. No pleural effusion. No pneumothorax. Heart/Mediastinum: Cardiomegaly with arteriosclerosis. Status post sternotomy chest. Aortic valve prosthesis. Bones/joints: Unremarkable. XR/XR chest 1V portable [id number] IMPRESSION: Nonacute.
--- NOTE | 2020-03-26 17:30 | ECG_ITS ---
[facility] Test Date: 2020-03-26 Pat Name: Jennifer You Department: Room: Gender: Female Client Service Consultant: : 1945 Requested By: Alexandra Parsons Order Number: [id number] Reading MD: SALVADOR WEISS Measurements Intervals [place] Rate: 60 P: 261 NV: 142 QRS: -24 QRSD: 129 T: 57 QT: 491 QTc: 491 Interpretive Statements SINUS RHYTHM WITH SINUS ARRHYTHMIA POSSIBLE RIGHT VENTRICULAR CONDUCTION DELAY [RSR (QR) IN V1/V2] SEPTAL MYOCARDIAL INFARCTION [40+ ms Q WAVE IN V1/V2], OF INDETERMINATE AGE Compared to ECG 09/16/2019 15:29:08 Incomplete right bundle-branch block no longer present Myocardial infarct finding still present Electronically Signed On 03-26-2020 20:13:41 TRIM AND BURR OPERATOR by SALVADOR WEISS [email or web address]
--- NOTE | 2020-03-26 17:35 | W.ED.WEAKNES ---
HPI - Weakness General: Chief complaint: Arrhythmia/Palpitations Stated complaint: Sent by /Lindy Heart Beat/Monitor Issues Time Seen by Provider: 03/26/20 17:31 Source: patient Mode of arrival: ambulatory Limitations: no limitations History of Present Illness: HPI Narrative: 74-year-old female who currently has a Holter monitor on today. States that 1 of multiple times in 2 different physicians called her told her she had pauses and she to come to the ER. She states she was sleeping during this time and has had no symptoms. States she has been very tired though of late denies any chest pain denies any syncopal events. Associated symptoms: Denies chest pain, chills, dysuria, easy bruising, fever(s), headache(s), nausea or vomiting Review of Systems Const: Denies: fever(s), chills, body aches or change in appetite Eyes: Denies: blurry vision or eye discomfort ENMT: Denies: throat pain or dental pain Card: Denies: chest pain Resp: Denies: dyspnea GI: Denies: abdominal pain, nausea, vomiting or diarrhea : Denies: dysuria Musc: Reports: muscle weakness Skin/Breast: Denies: rash Neuro: Denies: headache(s) Psych: Denies: depression Cristobal/Lymph: Denies: easy bruising All/Imm: Denies: urticaria PFSH ED PFSH: Medical History (Updated 03/26/20 @ 18:41 by Alexandra Parsons MD) Arthritis, lumbar spine Atrial fibrillation Chronic atrial fibrillation Chronic lumbar radiculopathy Depression Encounter for long-term opiate analgesic use History of common carotid artery stent placement Hypercholesterolemia Hypertension Hypothyroidism Spinal stenosis, lumbar region without neurogenic claudication Surgical History Aortic valve replaced 2000 H/O aortic valve replacement H/O section History of appendectomy History of bilateral carotid endarterectomy History of carpal tunnel surgery of left wrist History of carpal tunnel surgery of right wrist Family History Mother Dementia Father Clotting disorder Blood clots Social History Smoking and tobacco status: former smoker Second hand smoke exposure: No Alcohol intake: never Lives independently: Yes Household members: significant other History of recent travel: No Physical Exam Const: COMMON NORMALS: no acute distress, patient oriented x3 and healthy appearing HENMT: COMMON NORMALS: normocephalic and atraumatic HEAD & SCALP: normocephalic and atraumatic Eye: COMMON NORMALS: Equal, round and reactive pupils present and EOMs intact bilaterally PUPIL: Yes Equal, round and reactive pupils present Neck/C-Spine: COMMON NORMALS: full ROM and supple Chest: COMMONS NORMALS: normal inspection of the chest and normal palpation of entire chest wall Resp: COMMON NORMALS: normal respiratory effort, No retractions, No use of accessory muscles and clear to auscultation bilaterally AUSCULTATION: clear to auscultation bilaterally Cardio: COMMON NORMALS: regular rate, regular rhythm and No murmurs present (Cardio) RATE: regular rate RHYTHM: regular rhythm GI: COMMON NORMALS: Normal to inspection, nondistended, normoactive bowel sounds present, Soft to palpation, non-tender and no masses PALPATION: Yes Soft to palpation Extremity: COMMON NORMALS: normal to inspection and full ROM Neuro: COMMON NORMALS: patient oriented x3, moves all extremities and no focal motor deficits Psych: COMMON NORMALS: mental status grossly normal, Normal thought process present and cooperative THOUGHT PROCESS: Normal thought process present Skin: COMMON NORMALS: no rashes or lesions noted and no wounds GENERAL SKIN EXAM: no rashes or lesions noted Course Vital Signs: Vital signs: Vital Signs Temperature 98.9 F 03/26/20 17:30 Pulse Rate 51 L 03/26/20 18:07 Respiratory Rate 18 03/26/20 18:07 Blood Pressure 184/64 03/26/20 18:07 Pulse Oximetry 92 03/26/20 18:07 MDM - Weakness MDM Narrative: Medical decision making narrative: Neck presents here with some weakness and bradycardia patient's heart monitor showed multiple episodes of bradycardia with beats being dropped. I spoke to her community health advisor on Dr. Ayers will admit for observation and holding amiodarone. Patient's heart rate here is been in the 40s and 50s but she is otherwise stable. Lab Data: Labs: Lab Results 03/26/20 03/26/20 Range/Units 18:00 18:00 WBC 9.4 (4.0-10.0) 10^3/ uL RBC 4.00 L (4.1-5.3) 10^6/u L Hgb 12.8 (11.5-15.3) g/dL Hct 40.2 (37.0-47.0) % MCV 100.5 H (81-99) fL MCH 32.0 (28.0-34.0) pg MCHC 31.8 (30.0-36.0) g/dL RDW 12.8 (12.1-15.1) % Plt Count 221 (130-400) 10^3/c mm MPV 9.4 (7.4-10.4) fL Neut % (Auto) 74.7 % Lymph % (Auto) 17.0 % Cocke % (Auto) 6.8 % Eos % (Auto) 0.7 % Baso % (Auto) 0.4 % Neut # (Auto) 7.00 (1.8-7.7) 10^3/u L Lymph # (Auto) 1.6 (0.8-4.8) 10^3/u L Cocke # (Auto) 0.6 (0.2-0.9) 10^3/u L Eos # (Auto) 0.1 (0.0-0.8) 10^3/u L Baso # (Auto) 0.0 (0.0-0.1) 10^3/u L Nucleated RBC % (a uto) 0 % Nucleated RBCs # 0.0 /100WBC Sodium 140 (136-145) mmol/L Potassium 4.6 (3.5-5.1) mmol/L Chloride 101 (98-107) mmol/L Anion Gap 13.6 (5-19) GFR Calculation Not Reportable Glucose 104 (65-115) mg/dL Calculated Osmolal ity 295 (285-295) mOsm/k g Total Bilirubin 0.4 (0.15-1.2) mg/dL AST 32 (0-32) U/L ALT 22 (0-33) U/L Alkaline Phosphata se 76 (35-105) IU/L Total Protein 7.4 (6.6-8.7) g/dL Albumin 4.8 (3.5-5.2) g/dL Globulin 2.6 (1.3-4.6) g/dL Imaging Data^: CXR: Radiologist's impression: [facility] [address] [place] [address] XRay Report Signed Patient: Jennifer You Unit #: [id number] : 1945 Age/Sex: 74 / F ADM Date: 03/26/20 Loc: ER Room/Bed: Attending Dr: Ordering Provider/Ordering MD: Alexandra Parsons MD Date of Service: 03/26/20 Procedure(s): XR chest 1V portable [id number] Accession Number(s): [id number] Report Number: [id number] PROCEDURE INFORMATION: Exam: XR Chest, 1 View Exam date and time: 03/26/2020 5:31 PM Age: 74 years old Clinical indication: Chest pain; Type not specified; Additional info: Cp TECHNIQUE: Imaging protocol: XR of the chest Views: 1 view. COMPARISON: CR XR chest 1V portable [id number] 09/16/2019 3:39 PM FINDINGS: Tubes, catheters and devices: EKG leads. Lungs: Unremarkable. No consolidation. Pleural space: Unremarkable. No pleural effusion. No pneumothorax. Heart/Mediastinum: Cardiomegaly with arteriosclerosis. Status post sternotomy chest. Aortic valve prosthesis. Bones/joints: Unremarkable. XR/XR chest 1V portable [id number] IMPRESSION: Nonacute. EKG Data^: EKG 1: Attestation: I personally reviewed and interpreted this EKG as follows: EKG interpretation date: 03/26/20 EKG interpretation time: 17:35 Interpretation: nsr hr [address] or t wave abnormalities qrs 129 qtc 491 Discharge Plan Discharge Patient Disposition: Admitted As Inpatient Clinical Impression: Bradycardia Condition: Stable Coding Level of Care Code ED Manufactured Buildings Repairer for Chg Fwd Exam Comprehensive
[2020-03-26 18:15] LABS: Basophils % 0.4 %; Eosinophils # 0.1 10^3/uL (0.0-0.8); Eosinophils % 0.7 %; Hematocrit 40.2 % (37.0-47.0); Hemoglobin 12.8 g/dL (11.5-15.3); Lymphocytes # 1.6 10^3/uL (0.8-4.8); Mean Corpuscular HGB Conc 31.8 g/dL (30.0-36.0); Mean Corpuscular Volume 100.5 fL (81-99); Mean Platelet Volume 9.4 fL (7.4-10.4); Monocytes # 0.6 10^3/uL (0.2-0.9); Monocytes % 6.8 %; Neutrophils % 74.7 %; Nucleated Red Blood Cells % 0 %; Platelet Count 221 10^3/cmm (130-400); Red Cell Distribution Width 12.8 % (12.1-15.1); White Blood Count 9.4 10^3/uL (4.0-10.0)
[2020-03-26] MEDS: hyDRALAzine 20 mg/mL INJ 1 mL 10 MG IVP (18:27)
[2020-03-26 18:35] LABS: Alanine Aminotransferase 22 U/L (0-33); Albumin Level 4.8 g/dL (3.5-5.2); Alkaline Phosphatase 76 IU/L (35-105); Anion Gap 13.6 (5-19); Aspartate Amino Transferase 32 U/L (0-32); Blood Urea Nitrogen 25 mg/dL (8-23); Carbon Dioxide 30 mmol/L (22-29); Chloride 101 mmol/L (98-107); Globulin 2.6 g/dL (1.3-4.6); Glucose 104 mg/dL (65-115); Osmolality Calculated 295 mOsm/kg (285-295); Potassium 4.6 mmol/L (3.5-5.1); Sodium 140 mmol/L (136-145); Total Bilirubin 0.4 mg/dL (0.15-1.2); Total Protein 7.4 g/dL (6.6-8.7)
[2020-03-26 18:38] LABS: Troponin(5th) Baseline 20 ng/L (0-10)
[2020-03-26 18:48] LABS: Calcium 9.6 mg/dL (8.5-10.5)
--- NOTE | 2020-03-26 19:17 | PC.NURSE ---
pt report called to Regine BARFIELD in SBAR format.
--- NOTE | 2020-03-26 19:38 | PC.NURSE ---
Unable to complete med rec at this time. Patient states I'm on a little blue pill and a water pill and a bunch of different ones. Patient arrived to the floor from the ED after report was received via phone. Patient is alert and oriented. She has been oriented to her room and has her call light within reach. She does not have any complaints at this time.
--- NOTE | 2020-03-26 19:57 | P.HP_ITS ---
Providers/Chief Complaint Admitting Physician: Radha Whatley MD Primary Care Provider: Ruy Palacio MD Chief Complaint: Sent by /Skipping Heart Beat/Monitor Issues History of Present Illness Jennifer You is a 74 year old female past medical history significant paroxysmal atrial fibrillation, diastolic heart failure, hypertension was started on amiodarone for atrial fibrillation. She was monitored through event monitor for the past few days patient has been exhibiting episodes of bradycardia and occasional 3.0-second pause roughly in between 1 to 2 PM, today I was called by event monitor service that patient had been having multiple 3.0 to more than 5.0-second pauses with episode of bradycardia heart rate down into 40s. I also called the patient she told me that she is feeling fatigue and short of breath. She was therefore asked to come to the hospital. She has been admitted to ER for further monitoring. I will discontinue amiodarone for now. We will monitor her overnight. She denies any chest pain out of usual shortness of breath at rest. She denies syncope. She denies fever chills nausea vomiting diarrhea or flulike symptoms. Review of Systems Const: Denies: fever(s), chills, body aches or change in appetite Eyes: Denies: blurry vision, photophobia or eye discomfort ENMT: Denies: throat pain or dental pain Card: Denies: chest pain Resp: Denies: dyspnea GI: Denies: abdominal pain, nausea, vomiting or diarrhea : Denies: dysuria Musc: Reports: muscle weakness Skin/Breast: Denies: rash Neuro: Denies: headache(s) Psych: Denies: depression Cristobal/Lymph: Denies: easy bruising All/Imm: Denies: urticaria or acute wheezing Medications/Allergies Home Medications Medication Instructions Recorded Confirmed Last Taken Type levothyroxine 100 mcg PO DAILY 04/15/19 01/28/20 09/16/19 History lorazepam 0.5 mg PO BID PRN 04/15/19 01/28/20 09/14/19 History potassium chloride 20 meq PO BID 04/15/19 01/28/20 09/16/19 History simvastatin 40 mg PO DAILY 04/15/19 01/28/20 09/16/19 History cyanocobalamin (vitamin B-12) 1,000 mcg PO DAILY #30 tab 04/16/19 01/28/20 09/16/19 Rx furosemide [Lasix] 40 mg PO DAILY #0 tab 04/16/19 01/28/20 09/16/19 Rx nitroglycerin [Nitrostat] 0.4 mg SUBLINGUAL Q5M PRN #25 tab 04/16/19 01/28/20 Unknown Rx sertraline [Zoloft] 50 mg PO DAILY #0 tab 04/16/19 01/28/20 09/16/19 Rx amlodipine 2.5 mg PO DAILY 09/16/19 01/28/20 09/16/19 History donepezil 5 mg PO BEDTIME 09/16/19 01/28/20 09/15/19 History spironolactone 25 mg tablet 25 mg PO DAILY #90 tab 10/07/19 01/28/20 Unknown Rx hydrocodone 10 mg-acetaminophen 1 tab PO TID PRN 30 Days #180 tab 01/28/20 01/28/20 Unknown Rx 325 mg tablet warfarin 1 mg tablet 1 mg PO DAILY #90 tab 02/01/20 03/24/20 Unknown Rx amiodarone 100 mg tablet 100 mg PO DAILY #90 tab 03/24/20 Unknown Rx clopidogrel [Plavix] 75 mg PO DAILY@1000 03/27/20 03/27/20 Unknown History ferrous sulfate 325 mg PO DAILY@10 03/27/20 03/27/20 Unknown History Allergies Allergy/AdvReac Type Severity Reaction Status Date / Time No Known Allergies Allergy Verified 03/26/20 19:51 PFSH Acute PFSH: Medical History (Updated 03/27/20 @ 13:20 by Radha Whatley MD) Arthritis, lumbar spine Atrial fibrillation Chronic atrial fibrillation Chronic lumbar radiculopathy Depression Encounter for long-term opiate analgesic use History of common carotid artery stent placement Hypercholesterolemia Hypertension Hypothyroidism Spinal stenosis, lumbar region without neurogenic claudication Surgical History Aortic valve replaced 2000 H/O aortic valve replacement H/O section History of appendectomy History of bilateral carotid endarterectomy History of carpal tunnel surgery of left wrist History of carpal tunnel surgery of right wrist Family History Mother Dementia Father Clotting disorder Blood clots Social History Smoking and tobacco status: former smoker Second hand smoke exposure: No Alcohol intake: never Lives independently: Yes Household members: significant other History of recent travel: No Vitals/I&O/Wt Last Vital Signs Temp 98.5 F 03/26/20 19:35 Pulse 54 L 03/26/20 19:35 Resp 12 03/26/20 19:35 BP 116/45 03/26/20 19:35 Pulse Ox 96 03/26/20 19:35 Weight last 48 hrs Weight 150 lb Physical Exam Narrative: EXAM NARRATIVE: GENERAL: Patient is alert, awake and oriented x3. NECK: No jugular vein distension. HEENT: No cyanosis. No icterus. No pallor. HEART: Regular S1 and S2. No murmur, rub or gallop. LUNGS: Clear to auscultate bilaterally. ABDOMEN: Soft, nontender and nondistended. Positive bowel sounds. No guarding, rebound or tenderness. CENTRAL NERVOUS SYSTEM: Grossly nonfocal. EXTREMITIES: Lower extremities without edema bilaterally. Data : 03/26/20 18:00 03/26/20 18:00 Other Labs: SINUS RHYTHM WITH SINUS ARRHYTHMIA POSSIBLE RIGHT VENTRICULAR CONDUCTION DELAY [RSR (QR) IN V1/V2] SEPTAL MYOCARDIAL INFARCTION [40+ ms Q WAVE IN V1/V2], OF INDETERMINATE AGE Compared to ECG 09/16/2019 15:29:08 Incomplete right bundle-branch block no longer present Myocardial infarct finding still present A&P Assessment and plan (1) Bradycardia: Patient has episodes of bradycardia with multiple 3.0 to more than 5-s econds pauses. I will discontinue amiodarone we will monitor her overnight. She may have underlying tachybradycardia syndrome. Will discuss her case with Dr. Steward in the morning for possible pacemaker consideration. Status: Acute (2) Chronic atrial fibrillation: Patient has underlying tachybradycardia syndrome. She is has been hard to manage with joellen jayashree or antiarrhythmic. She is on low-dose of amiodarone 100 mg with significant pauses. Will discuss the option of pacemaker with Dr. Steward. Patient understand that she may will be benefited with the pacemaker. She understand the risk and benefits which further will be explained by Dr. Steward as well if required. Status: Acute (3) Aortic valve replaced: Has history of aortic valve replacement she is on Coumadin. Will check INR Status: Chronic (4) History of common carotid artery stent placement: She is on Plavix. Denies any TIA or strokelike symptoms. Status: Acute (5) Acute renal failure (ARF): Will hold diuretics and hydrate her. Status: Acute Attestations Medical Necessity Statement*: I will observe her for next 24 hours Coding Level of Care Code New Pt Acute Transplanter Orchid for g Fwd Patient Type New Medical Decision Making Moderate Complexity Diagnoses Bradycardia R00.1 Chronic atrial fibrillation I48.20 Aortic valve replaced Z95.2 History of common carotid artery stent placement Z98.890; Z95.828 Acute renal failure (ARF) N17.9
--- NOTE | 2020-03-26 20:18 | PC.NURSE ---
Patient is oriented to person, place, time, and situation, however appeared to get confused at times when asking admission questions.
--- NOTE | 2020-03-26 20:38 | PC.NURSE ---
Dr. Whatley notified of patient possibly being slightly confused. Dr. Whatley in room to see patient. Ordered to start patient on NS at 75 ml per hour and to stop after one liter has been given.
[2020-03-26] MEDS: HYDROcodone-acetaminophen 10-325 mg Tablet 1 TAB PO (20:54)
[2020-03-26] MEDS: donepezil 5 MG Tablet PO (20:54)
[2020-03-26] MEDS: sodium chloride 0.9% 1,000 ML 75 ML IV (20:55)
--- NOTE | 2020-03-26 21:01 | PC.NURSE ---
Patient states that she already took her Coumadin today. Patient cannot remember the names and doses of most of her home medications. Patient states I had a fall the last time I was in the hospital, but that was awhile ago. Bed alarm is set. Patient has been educated not to get up without assistance and verbalized understanding. Patient was showed how to use call light and has call light within reach.
--- NOTE | 2020-03-26 23:06 | PC.NURSE ---
Lab called to notify me that 2nd troponin was not drawn at the time it was due at 8pm. Dr. Whatley notified. Ordered to skip 2nd troponin and just get 3rd troponin.
--- NOTE | 2020-03-26 23:09 | PC.NURSE ---
Dr. Whatley notified of baseline troponin of 20. Ordered to cancel all of troponin series.
[2020-03-27] VITALS (9 sets, daily range): BP systolic 99–195; BP diastolic 46–73; PULSE 43–56; RESP 13–18; TEMP 36.4–37.1; O2SAT 93–95
[2020-03-27] MEDS: HYDROcodone-acetaminophen 10-325 mg Tablet 1 TAB PO ×2 (03:23→17:47)
--- NOTE | 2020-03-27 03:40 | PC.NURSE ---
Patient has no complaints at this time. Will monitor.
[2020-03-27 05:17] LABS: INR 4.89 (0.8-1.2)
--- NOTE | 2020-03-27 09:28 | PC.CHAP ---
Pastoral Care Encounter/Spiritual Assessment Type of Contact [] Declined abstracter visit [] Patient/Family/Request visit [] Outpatient visit [] Follow-up visit [] Physician referral [] Code/Alert [x] Routine visit [] Staff referral [] Actively dying [] Patient sleeping [] Family support [] [] Out of room [] Palliative care [] [] Receiving care in room [] Pre-surgical visit [] Trauma [] Long length of stay [] ICU visit [] Other: Relational/Emotional Strength [] Patient feels connected with others/family/visitors/staff [] Distress [] Loneliness/isolation [] Abandonment Spirituality of Patient [] Person of Cecilia [] Attends Bahai of their Cecilia [] Believes in Prayer [] Reads Bible or Orthodoxy materials [] There are Spiritual issues to be addressed Concrete Smoother Interventions [x] Prayer [x] Active listening [x] Non-anxious presence [x] Spiritual/emotional support [] Crisis/trauma care [] Spiritual counseling [] Bereavement support [] Provided bereavement packet [] Provided Bible/devotional materials [] Provided toy/stuffed animal, coloring book to patient or family member [] Provided Communion [] Anointing/[place] [] Salvation [x] Completed spiritual assessment [] Other: Impact on Illness or Injury [] Angry [] Fearful [] Anxious [] Often cries [] Exhaustion [] Unable to work [] Unable to attend mormon [] Unable to walk/stand [] Unable to read [] Unable to drive [] Unable to eat/drink [] Unable to sleep [] Unable to be with family [] Patient intubated [] Other: Summary has to make decisions regarding care... Time spent with patient 10 min
[2020-03-27] MEDS: levothyroxine 100 mcg Tablet PO (09:41)
[2020-03-27] MEDS: warfarin 1 mg Tablet PO (09:42)
[2020-03-27] MEDS: amlodipine 5 mg Tablet 2.5 MG PO (09:42)
[2020-03-27] MEDS: atorvastatin 40 mg Tablet 20 MG PO (09:42)
[2020-03-27] MEDS: sertraline 50 mg Tablet PO (09:42)
--- NOTE | 2020-03-27 11:26 | PC.NURSE ---
patient reporting sob and mild chest pain at this time Dr shankar notified no further instructions at this time Dr shankar to come to bedside
--- NOTE | 2020-03-27 11:41 | PC.NURSE ---
Dr shankar at bedside verbal instructions given at this time to give losartan 50mg po daily starting now, apply nirto paste 1 once now
[2020-03-27] MEDS: LORazepam 0.5 mg Tablet PO (11:50)
[2020-03-27] MEDS: losartan 50 mg Tablet PO (11:50)
[2020-03-27] MEDS: nitroglycerin 1 gm/inch oint Pkt 1 INCH TOPICAL (11:50)
[2020-03-27] MEDS: FUROsemide 10 mg/mL SDV 2mL 20 MG IVP (12:25)
--- NOTE | 2020-03-27 12:30 | PC.NURSE ---
blood pressure 108/[address] shankar notified telephone instructions obtained to remove nitro paste.
--- NOTE | 2020-03-27 13:20 | PC.NURSE ---
Dr Steward at bedside for assessment for discussion of plan of care. verbal instructions obtained to hold warfarin
--- NOTE | 2020-03-27 13:22 | PC.NURSE ---
patient blood pressure with in normal limits at this time 130/55
--- NOTE | 2020-03-27 14:57 | PM.PN ---
Subjective Subjective: Interval history: No overnight event however patient had high blood pressure this morning. She was hydrated last night. Vitals/I&O/Wt Last Vital Signs Temp 97.5 F L 03/27/20 14:46 Pulse 48 L 03/27/20 14:46 Resp 18 03/27/20 14:46 BP 128/48 03/27/20 14:46 Pulse Ox 93 03/27/20 14:46 03/26/20 03/27/20 03/27/20 22:59 06:59 14:59 Intake Total 300 / 300 480 / 480 Balance 300 / 300 480 / 480 Weight last 48 hrs Weight 150 lb Physical Exam Narrative: EXAM NARRATIVE: GENERAL: Patient is alert, awake and oriented x3. NECK: No jugular vein distension. HEENT: No cyanosis. No icterus. No pallor. HEART: Regular S1 and S2. No murmur, rub or gallop. LUNGS: Clear to auscultate bilaterally. ABDOMEN: Soft, nontender and nondistended. Positive bowel sounds. No guarding, rebound or tenderness. CENTRAL NERVOUS SYSTEM: Grossly nonfocal. EXTREMITIES: Lower extremities without edema bilaterally. Data : 03/26/20 18:00 03/26/20 18:00 A&P Assessment and plan (1) Bradycardia: Off amiodarone patient does not have bradycardia or pauses overnight while sleeping Status: Acute (2) Chronic atrial fibrillation: Patient has underlying tachybradycardia syndrome. She is has been hard to manage with joellen jayashree or antiarrhythmic. She is on low-dose of amiodarone 100 mg with significant pauses. Will discuss the option of pacemaker with Dr. Steward. Patient understand that she may will be benefited with the pacemaker. She understand the risk and benefits which further will be explained by Dr. Steward as well if required. I think patient has tachybradycardia syndrome may require permanent pacemaker placement for therapeutic use. I will consult with Dr. Steward who is her primary scenario writer. INR is 4.2 we may can also discharge patient on event monitor and bring her back when INR will be less than 1 Status: Acute (3) Aortic valve replaced: INR is supratherapeutic continue hold warfarin Status: Chronic (4) History of common carotid artery stent placement: She is on Plavix. Denies any TIA or strokelike symptoms. Status: Acute (5) Acute renal failure (ARF): Status post IV hydration. Evaluate will have improved Status: Acute (6) Essential hypertension: Blood pressure is elevated I will add losartan to the regimen. We will restart Aldactone. Status: Acute Attestations Medical Necessity Statement*: Patient require continuation hospitalization for above defined care. Coding Level of Care Code Established Pt Acute Sewer System Supervisor for Giovani Mendosa Patient Type Established History Detailed Exam Detailed Medical Decision Making Moderate Complexity Diagnoses Bradycardia R00.1 Chronic atrial fibrillation I48.20 Aortic valve replaced Z95.2 History of common carotid artery stent placement Z98.890; Z95.828 Acute renal failure (ARF) N17.9 Essential hypertension I10
[2020-03-27] MEDS: donepezil 5 MG Tablet PO (20:01)
--- NOTE | 2020-03-27 20:51 | PC.NURSE ---
Patient has no complaints at this time. Will monitor.
[2020-03-28] VITALS: BP 159/63; PULSE 47; RESP 9; TEMP 36.8; O2SAT 97
[2020-03-28] MEDS: HYDROcodone-acetaminophen 10-325 mg Tablet 1 TAB PO (00:14)
--- NOTE | 2020-03-28 00:59 | PC.NURSE ---
Patient is currently resting with eyes closed. Will monitor.
[2020-03-28 03:49] VITALS: BP 140/51; PULSE 46; RESP 17; TEMP 36.6; O2SAT 92
[2020-03-28 05:08] VITALS: PULSE 41
--- NOTE | 2020-03-28 06:49 | PC.NURSE ---
Patient states to this nurse that she had a fall the last time she was hospitalized. Patient has been educated several times not to get up without assistance. Patient was educated that we don't want her to fall and get hurt and patient verbalized understanding. Patient continues to get up without using her call light. Patient is alert and oriented x4 and call light is within reach.
[2020-03-28 07:07] VITALS: BP 176/68; PULSE 48; RESP 16; TEMP 36.2; O2SAT 95
[2020-03-28] MEDS: levothyroxine 100 mcg Tablet PO (08:20)
[2020-03-28] MEDS: atorvastatin 40 mg Tablet 20 MG PO (08:20)
[2020-03-28] MEDS: amlodipine 5 mg Tablet 2.5 MG PO (08:20)
[2020-03-28] MEDS: sertraline 50 mg Tablet PO (08:20)
--- NOTE | 2020-03-28 08:51 | PC.CHAP ---
Pastoral Care Encounter/Spiritual Assessment Type of Contact [] Declined fast food shift lead visit [] Patient/Family/Request visit [] Outpatient visit [] Follow-up visit [] Physician referral [] Code/Alert [x] Routine visit [] Staff referral [] Actively dying [] Patient sleeping [] Family support [] [] Out of room [] Palliative care [] [] Receiving care in room [] Pre-surgical visit [] Trauma [] Long length of stay [] ICU visit [] Other: Relational/Emotional Strength [] Patient feels connected with others/family/visitors/staff [] Distress [] Loneliness/isolation [] Abandonment Spirituality of Patient [] Person of Cecilia [] Attends Yarsani of their Cecilia [] Believes in Prayer [] Reads Bible or Mosque materials [] There are Spiritual issues to be addressed Billet Bed Operator Interventions [x] Prayer [x] Active listening [x] Non-anxious presence [x] Spiritual/emotional support [] Crisis/trauma care [] Spiritual counseling [] Bereavement support [] Provided bereavement packet [] Provided Bible/devotional materials [] Provided toy/stuffed animal, coloring book to patient or family member [] Provided Communion [] Anointing/[place] [] Salvation [x] Completed spiritual assessment [] Other: Impact on Illness or Injury [] Angry [] Fearful [x] Anxious [] Often cries [] Exhaustion [] Unable to work [] Unable to attend buddhism [] Unable to walk/stand [] Unable to read [] Unable to drive [] Unable to eat/drink [] Unable to sleep [] Unable to be with family [] Patient intubated [] Other: Summary patient has fear regarding pacemaker... Time spent with patient 10 min
[2020-03-28 10:44] VITALS: BP 156/72; PULSE 55; RESP 19; TEMP 35.8; O2SAT 97
[2020-03-28] MEDS: LORazepam 0.5 mg Tablet PO (10:48)
--- NOTE | 2020-03-28 10:48 | PC.NURSE ---
Patient given PRN Ativan at this time per patient request patient reports feeling shaky and anxious vital sign stable.
--- NOTE | 2020-03-28 13:17 | P.DS_ITS ---
Discharge Providers Date of Admission: 03/26/20 18:39 Date of Discharge: March 28, 2020 Attending Provider at Admission: Radha Whatley MD Attending Provider at Discharge: Radha Whatley MD Primary Care Provider: Ruy Palacio MD Diagnoses at Discharge Discharge Diagnosis (1) Bradycardia: Status: Acute Permanent problem details: Had bradycardia with pauses (2) Chronic atrial fibrillation: Status: Acute Permanent problem details: Patient has history of intermittent atrial fibrillation. (3) Aortic valve replaced: Status: Chronic Permanent problem details: 2000 (4) History of common carotid artery stent placement: Status: Acute Permanent problem details: Clinically stable (5) Acute renal failure (ARF): Status: Acute Permanent problem details: Patient had a high BUN/creatinine at the time of admission. (6) Essential hypertension: Status: Acute Permanent problem details: Her blood pressure has been fluctuating Reason for Visit Reason for Visit: Sent by /Lindy Heart Beat/Monitor Issues Hospital Course Hospital Course The patient was taken off the amiodarone because of the bradycardia. The sinus bradycardia/sinus rhythm with a heart rates mostly in the 50s. He did not have any recurrence of the prolonged pauses. Her INR was prolonged, 4.89. Coumadin was held. Repeat INR today is pending. For further management of her condition, patient requires a permanent pacer implantation. The patient is wanting to go home and come back for the permanent pacemaker implantation. She seems to be stable at this time, it was decided to discharge her home and bring her back on Friday for a permanent pacer implantation. She is advised to continue holding the Coumadin. She also may hold off on the Plavix on and Friday. Physical Exam Narrative: EXAM NARRATIVE: GENERAL: The patient is alert and oriented times three. Not in any acute distress. HEENT: No significant pallor, icterus or lymphadenopathy.Oral cavity: There are no mucous membrane lesions. NECK: Trachea appears to be central. No masses noted. No JVD or thyromegaly appreciated. Carotid bruit on the right side. RESPIRATORY: Chest is symmetrical. No intercostals muscle retraction or any accessory muscle activation. There is no chest wall tenderness. Breath sounds are heard bilaterally. No rales or rhonchi heard. No evidence of any consolidation. BREASTS: Deferred. HEART: The heart sounds are normal. No S3 or S4. Aortic valve closing and opening sounds are normal. Short systolic murmur in the left sternal border. No diastolic murmurs. No pericardial rub ABDOMEN: No vessel pulsations or distention. No tenderness. No organomegaly appreciated. Bowel sounds are normally heard. : Deferred. RECTAL: Deferred. LYMPHATIC: No lymphadenopathy noted in the neck or groin. EXTREMITIES: No edema or cyanosis. No clubbing. Peripheral pulses are palpated in fairly good volume and amplitude MUSCULOSKELETAL: No acute joint deformities or swelling SKIN: There are no significant rashes or ecchymosis NEUROPSYCHIATRIC: The patient is alert and oriented x3. Appears to be in a good mood. No tremors or rigidity noted. Discharge Data Data Completed and Pending: Completed Studies During Hospitalization Category Date Time Status XR chest 1V odin ble [id number] Stat Exams 03/26/20 17:30 Completed Pending at discharge Category Date Time Status Prothrombin Time INR Routine Lab 03/28/20 13:00 Ordered Laboratory Last Values WBC 9.4 10^3/uL (4.0- 10.0) 03/26/20 18:00 RBC 4.00 10^6/uL (4.1 -5.3) L 03/26/20 18:00 Hgb 12.8 g/dL (11.5-1 5.3) 03/26/20 18:00 Hct 40.2 % (37.0-47.0 ) 03/26/20 18:00 MCV 100.5 fL (81-99) H 03/26/20 18:00 MCH 32.0 pg (28.0-34. 0) 03/26/20 18:00 MCHC 31.8 g/dL (30.0-3 6.0) 03/26/20 18:00 RDW 12.8 % (12.1-15.1 ) 03/26/20 18:00 Plt Count 221 10^3/cmm (130 -400) 03/26/20 18:00 MPV 9.4 fL (7.4-10.4) 03/26/20 18:00 Neut % (Auto) 74.7 % 03/26/20 18:00 Lymph % (Auto) 17.0 % 03/26/20 18:00 Rolette % (Auto) 6.8 % 03/26/20 18:00 Eos % (Auto) 0.7 % 03/26/20 18:00 Baso % (Auto) 0.4 % 03/26/20 18:00 Neut # (Auto) 7.00 10^3/uL (1.8 -7.7) 03/26/20 18:00 Lymph # (Auto) 1.6 10^3/uL (0.8- 4.8) 03/26/20 18:00 Rolette # (Auto) 0.6 10^3/uL (0.2- 0.9) 03/26/20 18:00 Eos # (Auto) 0.1 10^3/uL (0.0- 0.8) 03/26/20 18:00 Baso # (Auto) 0.0 10^3/uL (0.0- 0.1) 03/26/20 18:00 Nucleated RBC % (a uto) 0 % 03/26/20 18:00 Nucleated RBCs # 0.0 /100WBC 03/26/20 18:00 PT 47.60 SECONDS (12 .1-14.9) H 03/27/20 04:00 INR 4.89 (0.8-1.2) H 03/27/20 04:00 Sodium 140 mmol/L (136-1 45) 03/26/20 18:00 Potassium 4.6 mmol/L (3.5-5 .1) 03/26/20 18:00 Chloride 101 mmol/L (98-10 7) 03/26/20 18:00 Carbon Dioxide 30 mmol/L (22-29) H 03/26/20 18:00 Anion Gap 13.6 (5-19) 03/26/20 18:00 BUN 25 mg/dL (8-23) H 03/26/20 18:00 Creatinine 1.5 mg/dL (0.5-0. 9) H 03/26/20 18:00 GFR Calculation Not Reportable 03/26/20 18:00 Glucose 104 mg/dL (65-115 ) 03/26/20 18:00 Calculated Osmolal ity 295 mOsm/kg (285- 295) 03/26/20 18:00 Calcium 9.6 mg/dL (8.5-10 .5) 03/26/20 18:00 Total Bilirubin 0.4 mg/dL (0.15-1 .2) 03/26/20 18:00 AST 32 U/L (0-32) 03/26/20 18:00 ALT 22 U/L (0-33) 03/26/20 18:00 Alkaline Phosphata se 76 IU/L (35-105) 03/26/20 18:00 Troponin T Baselin e 20 ng/L (0-10) H 03/26/20 18:00 Total Protein 7.4 g/dL (6.6-8.7 ) 03/26/20 18:00 Albumin 4.8 g/dL (3.5-5.2 ) 03/26/20 18:00 Globulin 2.6 g/dL (1.3-4.6 ) 03/26/20 18:00 Vitals: Last Vital Signs Temp 96.5 F L 03/28/20 10:44 Pulse 55 L 03/28/20 10:44 Resp 19 H 03/28/20 10:44 BP 156/72 03/28/20 10:44 Pulse Ox 97 03/28/20 10:44 Discharge Plan Discharge Patient Disposition: Home Condition: Stable Prescriptions: Continued hydrocodone-acetaminophen 10-325 mg tablet 1 tab PO TID PRN (Reason: pain) 30 Days Qty: 180 RF: 0 spironolactone 25 mg tablet 25 mg PO DAILY Qty: 90 RF: 3 levothyroxine 100 mcg Tablet 100 mcg PO DAILY@10 RF: 0 lorazepam 0.5 mg Tablet 0.5 mg PO BID PRN (Reason: Anxiety) RF: 0 potassium chloride 20 mEq Tablet Extended Release 20 meq PO BID@10,21 RF: 0 cyanocobalamin (vitamin B-12) 1,000 mcg Tablet 1,000 mcg PO DAILY Qty: 30 RF: 3 nitroglycerin [Nitrostat] 0.4 mg Tablet, Sublingual 0.4 mg sublingual Q5M PRN (Reason: Chest Pain) Qty: 25 RF: 0 sertraline [Zoloft] 25 mg Tablet 50 mg PO DAILY Qty: 0 RF: 0 furosemide [Lasix] 20 mg Tablet 40 mg PO DAILY Qty: 0 RF: 0 donepezil 5 mg Tablet 5 mg PO BEDTIME@21 RF: 0 amlodipine 2.5 mg Tablet 2.5 mg PO DAILY@10 RF: 0 gabapentin 100 mg Capsule 100 mg PO TID RF: 0 atorvastatin 40 mg tablet 40 mg PO DAILY 30 Days Qty: 30 RF: 5 ferrous sulfate 325 mg (65 mg iron) Tablet 325 mg PO DAILY@10 RF: 0 clopidogrel [Plavix] 75 mg Tablet 75 mg PO DAILY@1000 RF: 0 Discontinued warfarin 3 mg tablet 3 mg PO DIRECTED RF: 0 warfarin 2 mg tablet 2 mg PO DIRECTED RF: 0 warfarin 1 mg tablet 1 mg PO DAILY Qty: 90 RF: 3 amiodarone 200 mg tablet 200 mg PO DAILY 30 Days Qty: 30 RF: 1 warfarin 2 mg tablet 2 mg PO DAILY RF: 0 No Action multivitamin Tablet 1 tab PO DAILY 14 Days Qty: 14 RF: 0 Discharge Orders: Discharge Order (Routine); Ordered 03/28/20 Ordered By: Phan Steward Referrals: Phan Steward MD [Physician] - (You are scheduled for a Pacemaker placement on March 31 at 8:30a.m. Please check-in at 7:30a.m. at the Main Admissions desk.) Ruy Palacio MD [Primary Care Provider] - (Please follow-up with Dr. Palacio on April 03 at 3:10a.m. If you have any questions or need to reschedule. 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 after midnight on except the medications. May take the medication with a simple water instructions regarding the pacemaker implantation. Discharge Attestations Time Spent in Discharge Care*: greater than 30 min Quality Metrics Clinical Quality Measures During this hospital stay, did patient experience: AMI Clinical Trial Participant: No Contraindication to aspirin (AMI): Drug interaction (Patient is on warfarin and Plavix) Contraindication to statin: Statin prescribed, Stroke Contraindication to Antithrombotic: Antithrombotic prescribed (Patient is on Plavix) Contraindication to Anticoagulation: Medical contraindication (Pacemaker implantation) Contraindication to Statin: Statin prescribed and None Coding Level of Care Code Acute Camera Repairer for Chg Fwd Medical Decision Making Moderate Complexity Diagnoses Bradycardia R00.1 Chronic atrial fibrillation I48.20 Aortic valve replaced Z95.2 History of common carotid artery stent placement Z98.890; Z95.828 Acute renal failure (ARF) N17.9 Essential hypertension I10
[2020-03-28 13:36] VITALS: BP 116/65; PULSE 50; RESP 18; TEMP 36.3; O2SAT 94
[2020-03-28 13:42] LABS: INR 2.53 (0.8-1.2)
[2020-03-28 14:14] LABS: Blood Urea Nitrogen 21 mg/dL (8-23); Calcium 9.7 mg/dL (8.5-10.5); Carbon Dioxide 28 mmol/L (22-29); Chloride 102 mmol/L (98-107); Glucose 124 mg/dL (65-115); Osmolality Calculated 292 mOsm/kg (285-295); Sodium 139 mmol/L (136-145)
[2020-03-28 14:17] LABS: Creatinine Clr Calc Pharmacy 39.8775
--- NOTE | 2020-03-28 14:33 | PC.NURSE ---
Patient discharged at this time home self care patient and spouse provided discharge instructions as well as educations on pacemaker placement patient and spouse verbalized understanding of instructions; although patient verbalized concerns and the possibility of not wanting to have the surgery. patient and spouse provided with education to be able to make a educated decision patient explained risks of having and not having the procedure. patient taken to private vehicle via wheel chair by staff. patient alert oriented and in stable condition.
[2020-03-30 07:54] LABS: Coronavirus Lab Test PTC Negative
== END 2020-03-28 14:32 | disposition home or self-care (01) ==
LOC: ER 18:41 → CSU 18:46
PROVIDERS: Internal Medicine Cardiovascular Disease; Admitting Provider Internal Medicine Cardiovascular Disease; Emergency Provider Emergency Medicine; PCP Family Medicine; Visit Provider Internal Medicine Cardiovascular Disease
DX: R00.1 Bradycardia, unspecified (principal); Z95.5 Presence of coronary angioplasty implant and graft; N17.9 Acute kidney failure, unspecified; I48.20 Chronic atrial fibrillation, unspecified; F32.9 Major depressive disorder, single episode, unspecified; Z79.01 Long term (current) use of anticoagulants; E78.00 Pure hypercholesterolemia, unspecified; E03.9 Hypothyroidism, unspecified; Z87.891 Personal history of nicotine dependence; Z95.2 Presence of prosthetic heart valve; Z98.890 Other specified postprocedural states; Z95.828 Presence of other vascular implants and grafts; I11.0 Hypertensive heart disease with heart failure; I50.30 Unspecified diastolic (congestive) heart failure; Z79.891 Long term (current) use of opiate analgesic
CPT/HCPCS: 12345; 36415; 71045; 80048; 80053; 84484; 85025; 85610; 87635; 93005; 96374; 96375; 99283; 99285; G0378; J0360; J1940; J7030

== ENCOUNTER 2020-03-31 11:57 | Day surgery (SDC) | payer MEDICARE, MEDICAID, SELFPAY ==
[2020-03-31 12:57] VITALS: BP 160/74; PULSE 62; RESP 16; TEMP 37.1; O2SAT 95; BMI 25.0
[2020-03-31 13:27] LABS: INR 1.57 (0.8-1.2)
--- NOTE | 2020-03-31 13:55 | PC.NURSE ---
PRE OP DUE TO ABNORMAL LABS PROCEDURE TO BE RESCHEDULED FOR FRIDAY AT 1630. PACEMAKER REP AWARE OF NEW DATE AND TIME. NEW MED ORDERS GIVEN TO PATIENT. SCRIPTS ELECTRONICALLY SENT.
--- NOTE | 2020-03-31 14:08 | PM.MISC ---
Miscellaneous Note Purpose of Documentation: This patient came to the outpatient department today for a scheduled permanent pacemaker implantation. She was found to have prolonged INR. For this reason, the procedure was postponed. She was advised to take Lovenox for bridging anticoagulation. Patient is advised to take the Lovenox 60 mg every 12 hours total of 5 doses up until Friday evening. She is advised to stay off the Plavix since Friday and Friday. She may take 1 dose of Plavix today. The pacemaker implantation scheduled for Friday at 4 PM
== END 2020-03-31 14:26 | disposition home or self-care (01) ==
PROVIDERS: PCP Family Medicine; Visit Provider Internal Medicine Cardiovascular Disease
DX: R00.1 Bradycardia, unspecified (principal); Z53.9 Procedure and treatment not carried out, unspecified reason
CPT/HCPCS: 85610; J3370; J7050

== ENCOUNTER 2020-04-03 15:09 | Outpatient (CLI) | payer MEDICARE, MEDICAID, SELFPAY ==
[2020-04-03] VITALS (75 sets, daily range): BP systolic 83–197; BP diastolic 47–75; PULSE 52–64; RESP 10–20; TEMP 36.6–36.7; O2SAT 91–97
--- NOTE | 2020-04-03 15:30 | XACV_ITS ---
Exam Room: [facility] Ht: 165 cm Gender: Female : 1945 Any Known Allergies: No known allergies Exam Priority: Routine Procedure(s): Procedure Description: Diagnostic procedure Procedure Description: Miscellaneous Procedure Description: Dual Chamber Pacemaker Implant Diagnostic Cath Status: Elective Diagnostic Findings * Left subclavian venogram was performed after injecting 20 cc of Omnipaque into the left antecubital vein. The vein was found to be patent with no evidence of thrombosis. Conclusions 1. Left subclavian venogram performed prior to the pacemaker insertion revealed patent left subclavian vein with no evidence of thrombosis. Pressures Phase:Rest AO : / ( -27 ) @ 12:20:00 PM Clinical Evaluation EBL: 5mL-10mL Procedural Details Procedure Consent Obtained. Ancef 1g IV was given at 1651 in yard labor supervisor. Oxygen started at 2liters/min via nasal canula. Supplies: Cath pack, micropunture, bovie pen, 2-0 silk, 0 surgilon, 3-0 vicryl, 4-0 vicryl. Pre sponge count: 55. Pre sharps count: 20. Pre instrument count: 10. IV Fluids: 0.9% NaCl at KVO. 0 mL infused prior to yard labor supervisor. bilateral subclavian region was prepped with chloroprep then draped in the usual sterile fashion. Baseline sample Acquired. HR: 64 BPM. PERRLA. Strong, equal hand fruit buying grader bilaterally. Lungs clear x 5 lobes. IV Site on Arrival: 20 gauge in the right forearm. IV Site on Arrival: 22 gauge in the left anticubital. Physician notified. Physician arrived. Physician scrubbed in. Time out performed with cath team. Lidocaine 1% infiltrated to Left subclavian area. hand injection performed. Access obtained in left subclavian vein with micropuncture set. Lidocaine 1% infiltrated to Left subclavian area. making the pocket. Lidocaine 1% infiltrated to Left subclavian area. Pocket formed. Access in left subclavian vein with second micropuncture set. Inserted 7 fr. safe sheath into left subclavian vein. Inserted Ventricular lead and tested. V lead retested. V Lead Safe sheath peeled away. Lead left intact. Ventricular lead sutured into place with 0 surgilon. 2 Instruments added. V lead retested. Inserted a second 7 fr. safe sheath into left subclavian vein. Inserted Atrial lead and tested. A lead retested. A lead retested. A lead retested. A lead retested. A lead retested. A lead Safe sheath peeled away. Lead left intact. A lead retested. Pre-Procedure Time Out. Identified patient by full name and date of as verbalized by the patient/guarantor. Does the consent match the physician's order: Yes. Inpatient/Outpatient History & Physical on Chart: Yes. Accurate & Complete Informed Consent: Yes. If H&P is completed, is and addenduem needed: No; If yes, is the addendum complete: N/A. Visualize and Verify Site with Patient/Guarantor: N/A. Relevant Radiology Images available: Yes. Pre-op teaching completed and patient verbalized understanding. The risks, benefits, and alternatives of sedation and/or procedure were discussed by physician. The patient agrees to continue. Procedure started. Correct patient, site and procedure confirmed by cath team. Current diagnosis: Pacemaker placement. Antibiotic flush used to clean pacer pocket. Generator attached and tested. 5 Sharps added. Generator secured with 3-0 vicryl. Generator Lot# [id number]. A Lead Lot# [id number]. V Lead Lot# [id number]. Subcutaneous tissue closed with 3-0 vicryl. Cutaneous tissue closed with 4-0 vicryl. All final counts correct. left subclavian pocket dressed per physician order. Shoulder immobilizer in place. Jayro wrap and 4x4's in place. No bleeding or hematoma noted at left subclavian pocket. Post Procedure: Pulses reassessed and unchanged. Total IV fluids: 150 mL. Medication's Wasted: Lidocaine 1% = 5 mL. Medication's Wasted: Other = Versed 1 mg. No VTE prophylaxis required. Post-op diagnosis: Pacemaker insertion. Vital chart was stopped. Complications: None. Estimated blood loss: 5mL-10mL. Procedure completed. Procedure Medications Start: 5:03 PM Stop: 5:03 PM Medication: Versed Amount: 1 mg Route: I.V. Start: 5:04 PM Stop: 5:04 PM Medication: Fentanyl Amount: 50 mcg Route: I.V. Start: 5:15 PM Stop: 5:15 PM Medication: Fentanyl Amount: 50 mcg Route: I.V. Start: 5:15 PM Stop: 5:15 PM Medication: Versed Amount: 1 mg Route: I.V. Start: 5:22 PM Stop: 5:22 PM Medication: Fentanyl Amount: 50 mcg Route: I.V. Start: 5:24 PM Stop: 5:24 PM Medication: Versed Amount: 1 mg Route: I.V. Start: 5:29 PM Stop: 5:29 PM Medication: Versed Amount: 1 mg Route: I.V. Start: 5:34 PM Stop: 5:34 PM Medication: Fentanyl Amount: 50 mcg Route: I.V. Start: 6:00 PM Stop: 6:00 PM Medication: Versed Amount: 1 mg Route: I.V. I, the attending physician, have reviewed and verified all procedure medications. Yes, all medications given per verbal order History/Risk Factors Hypertension: Yes Dyslipidemia: No Peripheral Arterial Disease (PAD): No Myocardial Infarction ([place]): No Obesity: No Renal Disease: Yes Dialysis: Current Prior Interventions PCI: Yes CABG: No Valve Surgery: No Report Signatures Finalized by Dr Phan Steward MD [facility] on 04/03/2020 08:56 PM
--- NOTE | 2020-04-03 16:09 | W.PM.OPSUD ---
Surgery/Procedure H&P Update DATE OF PROCEDURE: April 03, 2020 DATE H&P PERFORMED: 03/26/20 H&P UPDATE INFORMATION: I have reviewed H&P completed within last 30 days, I have examined patient prior to procedure and No changes to prior documentation PREOP DIAGNOSIS: Symptomatic bradycardia/atrial fibrillation PLANNED PROCEDURE: Operation Date: 04/03/20 16:30 Proposed Procedures p Pacemaker Insertion(Bilateral) - Phan Steward MD Permanent dual-chamber pacemaker implantation PATIENT REASSESSED PRIOR TO SEDATION, WITH NO CHANGE NOTED: Yes PHYSICAL EXAM: alert, oriented x 3, clear to auscultation bilaterally and regular rate & rhythm AIRWAY EVAL/ANESTHESIA PLAN: normal airway, see other exam findings, ASA II, Monitored Anesthesia, Local Anesthesia, Risks, benefits & alternatives of sedation and/or procedure discussed and Patient agrees to continue as planned
[2020-04-03 16:12] LABS: Basophils % 0.3 %; Eosinophils % 0.2 %; Hematocrit 40.4 % (37.0-47.0); Hemoglobin 13.2 g/dL (11.5-15.3); Lymphocytes # 1.2 10^3/uL (0.8-4.8); Lymphocytes % 13.4 %; Mean Corpuscular HGB Conc 32.7 g/dL (30.0-36.0); Mean Corpuscular Hemoglobin 32.6 pg (28.0-34.0); Mean Corpuscular Volume 99.8 fL (81-99); Mean Platelet Volume 9.4 fL (7.4-10.4); Monocytes # 0.6 10^3/uL (0.2-0.9); Monocytes % 6.7 %; Neutrophils # 6.94 10^3/uL (1.8-7.7); Neutrophils % 79.1 %; Nucleated Red Blood Cells % 0 %; Platelet Count 216 10^3/cmm (130-400); Red Blood Count 4.05 10^6/uL (4.1-5.3); Red Cell Distribution Width 12.6 % (12.1-15.1); White Blood Count 8.8 10^3/uL (4.0-10.0)
[2020-04-03] MEDS: sodium chloride 0.9% 1,000 ML 75 ML IV (16:19)
[2020-04-03 16:30] LABS: INR 1.26 (0.8-1.2)
--- NOTE | 2020-04-03 19:01 | PM.OP ---
Operative Report Date of procedure: April 03, 2020 Pre-op Diagnosis: Symptomatic bradycardia/atrial fibrillation Procedure: LOCATION: Cardiac catheterization lab PREOPERATIVE DIAGNOSES: Symptomatic bradycardia/atrial fibrillation. POSTOPERATIVE DIAGNOSES: Same. COMPLICATIONS: None. ESTIMATED BLOOD LOSS: Around 5 milliliters. BRIEF HISTORY: This is a 74-year-old white female with history of chronic intermittent atrial fibrillation, presented with episodes of dizziness, weakness and near syncopal episodes. She was found to have episodes of sinus bradycardia with prolonged pauses on the event monitor. For further management of her condition, she requires a permanent pacemaker implantation. A dual-chamber permanent pacemaker implantation was recommended for symptom relief and AV synchrony . The procedure was explained to the patient in detail with the risks and benefits. The risks of bleeding, hematoma, vascular injury, infection, pneumothorax, myocardial perforation and other concomitant complications were explained in detail, which the patient understood well and consented to proceed. PROCEDURE DESCRIPTION: The patient was brought to the Cardiac Catheterization Lab. The left and the right side of the neck and the subclavian area were cleaned and draped in a sterile fashion. 1% Xylocaine was used as the local anesthetic agent. A left subclavian venous access was obtained using a micropuncture needle system. Under venographic guidance, the patient was injected with 20 milliliters of Omnipaque through the left antecubital vein. A two-inch long incision was made 2.0 centimeters below the midclavicular region. By sharp and blunt dissection, a pacemaker pocket was made. A second venous access was obtained using another micropuncture needle system. Over the first guidewire, a 7-[place] venous sheath with dilator was advanced. The venous dilator and the guidewire were taken out. A screw-in ventricular lead was advanced through the venous sheath and was positioned towards the right ventricle. Under fluoroscopy guidance, the ventricular lead was positioned toward the right ventricular apex. Good pacing and sensing thresholds were obtained. The lead was secured to the endocardium by advancing the helix. The stability of the lead was tested by gentle twisting movements and also by asking the patient to take some deep breaths and cough. The venous sheath was peeled off, at this time. The lead was secured to the pectoralis fascia, by suturing with 1-0 Surgilon. Over the second guidewire, another 7-[place] venous sheath with dilator was advanced. The dilator and the guidewire were taken out. Under fluoroscopy guidance, an atrial lead (Medtronic), was advanced and positioned toward the right atrium. The lead was positioned in the right atrial appendage. Good pacing and sensing thresholds were obtained. The lead was secured to the endocardium by advancing the helix. Stability of the lead was tested by gentle twisting movements and also by asking the patient to take some deep breaths and cough. The venous sheath was peeled off, at this time. The lead was secured to the pectoralis fascia by suturing with 0-Surgilon. The pacemaker pocket was copiously irrigated with vancomycin solution. Complete hemostasis was achieved. Sponge counts were confirmed. The leads were attached to a Medtronic generator. The leads were positioned behind the generator and the generator was attached to the pectoralis fascia by suturing with 0-Surgilon. The pocket was closed in layers. Skin was approximated using 4-0 Vicryl. IMPLANTED DEVICES: ATRIAL LEAD: Model number: 5076/45 Serial number: [id number] Make: Medtronic VENTRICULAR LEAD: Model number: 5076/52 Serial number: [id number] Make: Chronic GENERATOR Brand: Amber XT DR MRI TheresaNdan Model number: [id number] Serial number: [id number] Make: Medtronic IMPLANTATION DATA: With the pacing system analyzer, the R wave sensing was 7.25 millivolts with a lead impedance of 700 and a pacing threshold was 0.5 volts at 0.4 milliseconds. In the atrium, the sensing was 2.2 millivolts with a lead impedance of 513 ohms and a pacing threshold was .75 volts at 0.4 milliseconds. Through the device, the R-wave sensing was 5.4 millivolts with a lead impedance of 665 and a pacing threshold was 0.75 volts at 0.4 milliseconds. The atrial sensing was 2.3 millivolts with a lead impedance of 513 ohms and a pacing threshold of 0.75 volts at 0.4 milliseconds. The pacemaker was set for DDDR mode with upper rate of 130 and a lower rate of 60 with mode switch on. A pressure dressing was applied over the pacemaker site. The patient was transferred to the Medical Floor in stable condition. A chest x-ray was ordered to confirm the lead position and also to rule out any pneumothorax.
[2020-04-03] MEDS: dextrose 5%-sod chloride 0.45% 1,000 ML 75 ML IV (19:51)
[2020-04-03] MEDS: donepezil 5 MG Tablet PO (20:06)
[2020-04-03] MEDS: atorvastatin 40 mg Tablet 20 MG PO (20:06)
[2020-04-03] MEDS: potassium chloride ER 20 mEq Tablet PO (20:06)
[2020-04-03] MEDS: HYDROcodone-acetaminophen 10-325 mg Tablet 1 TAB PO (20:57)
--- NOTE | 2020-04-03 20:58 | PC.NURSE ---
Patient arrived to ICU at 1907. Patient has shoulder immobilizer in place. Lung sounds are clear, BS active. SCD's in place. Pulses palpable. Call light within reach. Continue care.
--- NOTE | 2020-04-03 23:55 | ECG_ITS ---
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 Measurements Intervals [place] Rate: 60 P: -74 ID: 150 QRS: -82 QRSD: 179 T: 83 QT: 537 QTc: 537 Interpretive Statements ELECTRONIC ATRIAL PACEMAKER ELECTRONIC VENTRICULAR PACEMAKER Compared to ECG 03/26/2020 17:35:56 Sinus rhythm no longer present Sinus arrhythmia no longer present Myocardial infarct finding no longer present Electronically Signed On 04-04-2020 9:39:13 SAS ADMINISTRATOR by Nelson Harvey M.D. [id number]
[2020-04-04] VITALS (82 sets, daily range): BP systolic 84–167; BP diastolic 51–79; PULSE 60–69; RESP 7–23; TEMP 36.2–37; O2SAT 89–98
[2020-04-04] MEDS: HYDROcodone-acetaminophen 10-325 mg Tablet 1 TAB PO ×2 (01:58→08:07)
--- NOTE | 2020-04-04 04:19 | PC.NURSE ---
Patient resting in room with eyes closed. Patient did voice complaints of pain earlier and PRN pain medicaiton was given per orders and MAR. No s/s of distress. Call light within reach. Continue care.
--- NOTE | 2020-04-04 06:00 | ECG_ITS ---
[facility] Test Date: 2020-04-04 Pat Name: Jennifer You Department: Room: [facility]06 Gender: Female Plugman: : 1945 Requested By: Phan Steward Order Number: [id number] Yarelis MD: Nelson Harvey M.D. Measurements Intervals [place] Rate: 60 P: 28 IA: 152 QRS: -72 QRSD: 182 T: 76 QT: 548 QTc: 548 Interpretive Statements ELECTRONIC ATRIAL PACEMAKER ELECTRONIC VENTRICULAR PACEMAKER ABNORMAL RHYTHM ECG Compared to ECG 04/03/2020 22:03:25 No significant changes Electronically Signed On 04-04-2020 9:45:45 BREAST PULLER by Nelson Harvey M.D. [email or web address]
--- NOTE | 2020-04-04 06:23 | PC.NURSE ---
Shift Summary: Uneventful shift. Patient is resting in room with eyes closed. Uses bedpan to void due to being on bedrest. No s/s distress. Call light within reach. Continue care.
[2020-04-04] MEDS: cyanocobalamin 1,000 mcg Tablet 1000 MCG PO (08:09)
[2020-04-04] MEDS: FUROsemide 20 mg Tablet 40 MG PO (08:09)
[2020-04-04] MEDS: sertraline 50 mg Tablet PO (08:09)
--- NOTE | 2020-04-04 08:43 | PC.CHAP ---
Pastoral Care Encounter/Spiritual Assessment Type of Contact [] Declined stereotyper helper visit [] Patient/Family/Request visit [] Outpatient visit [] Follow-up visit [] Physician referral [] Code/Alert [x] Routine visit [] Staff referral [] Actively dying [] Patient sleeping [] Family support [] [] Out of room [] Palliative care [] [] Receiving care in room [] Pre-surgical visit [] Trauma [] Long length of stay [x] ICU visit [] Other: Relational/Emotional Strength [] Patient feels connected with others/family/visitors/staff [] Distress [] Loneliness/isolation [] Abandonment Spirituality of Patient [] Person of Cecilia [] Attends Rastafari of their Cecilia [] Believes in Prayer [] Reads Bible or Cheondoism materials [] There are Spiritual issues to be addressed Damage Prevention Coordinator Interventions [x] Prayer [x] Active listening [] Non-anxious presence [x] Spiritual/emotional support [] Crisis/trauma care [] Spiritual counseling [] Bereavement support [] Provided bereavement packet [] Provided Bible/devotional materials [] Provided toy/stuffed animal, coloring book to patient or family member [] Provided Communion [] Anointing/[place] [] Salvation [x] Completed spiritual assessment [] Other: Impact on Illness or Injury [] Angry [] Fearful [] Anxious [] Often cries [] Exhaustion [] Unable to work [] Unable to attend quaker [] Unable to walk/stand [] Unable to read [] Unable to drive [] Unable to eat/drink [] Unable to sleep [] Unable to be with family [] Patient intubated [] Other: Summary patient feeling stronger Time spent with patient 5 min
--- NOTE | 2020-04-04 09:00 | XR_ITS ---
WS: [id number] PORTABLE CHEST HISTORY: Post pacemaker COMPARISON: 03/26/2020 LEFT subclavian dual lead permanent cardiac pacer has been inserted in good position. Prior median st ernotomy and valve replacement. No consolidation within the lungs. No fluid overload. No pleural effusion or pneumothorax. Cardiac size: Normal. Mediastinum/Aorta: Mild atherosclerosis aorta. No osseous abnormality seen. XR/XR chest 1V portable [id number] IMPRESSION: Satisfactory placement of a LEFT subclavian cardiac pacer. No complications are evident.
[2020-04-04] MEDS: dextrose 5%-sod chloride 0.45% 1,000 ML 75 ML IV (09:09)
[2020-04-04] MEDS: amlodipine 5 mg Tablet 2.5 MG PO (10:06)
[2020-04-04] MEDS: ferrous sulfate EC 325 mg Tablet PO (10:07)
[2020-04-04] MEDS: levothyroxine 100 mcg Tablet PO (10:07)
[2020-04-04] MEDS: potassium chloride ER 20 mEq Tablet PO (10:07)
[2020-04-04] MEDS: clopidogrel 75 mg Tablet PO (10:07)
--- NOTE | 2020-04-04 11:06 | PC.NURSE ---
PACER CHECK COMPLETED. SPOKE TO WITH [place] [employer]. UNABLE TO CAPTURE THE R WAVE WITH THE MOBILE INTERROGATION DEVICE. WILL UPDATE DR SAPIN.
--- NOTE | 2020-04-04 11:50 | PC.PHAR ---
PT STATES SHE IS UNSURE OF HER MEDICATIONS-PT BROUGHT IN HER MEDICATION BOTTLES-PT STATES SHE FINISHED HER ENOXAPARIN INJECTIONS A FEW DAYS AGO-PT STATES SHE HASNT TAKEN HER WARFARIN FOR 5 DAYS OR SO
[2020-04-04] MEDS: warfarin 2 mg Tablet PO (17:24)
[2020-04-04] MEDS: amiodarone 200 mg Tablet PO (17:24)
== END 2020-04-04 17:55 | disposition home or self-care (01) ==
LOC: ICU 15:54 → OPS 04-13 17:13 → ICU 04-13 17:14
PROVIDERS: PCP Family Medicine; Visit Provider Internal Medicine Cardiovascular Disease
DX: I49.5 Sick sinus syndrome (principal); I48.0 Paroxysmal atrial fibrillation; I11.0 Hypertensive heart disease with heart failure; I50.30 Unspecified diastolic (congestive) heart failure; Z79.01 Long term (current) use of anticoagulants; F32.9 Major depressive disorder, single episode, unspecified; E03.9 Hypothyroidism, unspecified; Z87.891 Personal history of nicotine dependence; Z95.2 Presence of prosthetic heart valve; Z98.890 Other specified postprocedural states; Z95.828 Presence of other vascular implants and grafts; N17.9 Acute kidney failure, unspecified; Z53.9 Procedure and treatment not carried out, unspecified reason
CPT/HCPCS: 12345; 33208; 36415; 71045; 85025; 85610; 93005; 97165; C1769; C1779; C1786; C1894; J2250; J3010; J7030; J7050; J7799; Q9967

== ENCOUNTER → 2020-04-12 09:06 | Outpatient (BNVA) | payer MEDICARE, MEDICAID, SELFPAY | PROVIDERS: PCP Family Medicine; Visit Provider Nurse Practitioner | DX: M54.9 Dorsalgia, unspecified (principal); M47.816 Spondylosis without myelopathy or radiculopathy, lumbar region; M54.16 Radiculopathy, lumbar region; M48.061 Spinal stenosis, lumbar region without neurogenic claudication; Z79.891 Long term (current) use of opiate analgesic | CPT/HCPCS: 99215 ==

== ENCOUNTER → 2020-05-03 09:19 | Outpatient (BNVA) | payer MEDICARE, MEDICAID, SELFPAY | PROVIDERS: PCP Family Medicine; Visit Provider Internal Medicine Cardiovascular Disease | DX: Z95.2 Presence of prosthetic heart valve (principal) | CPT/HCPCS: 85610 ==

== ENCOUNTER → 2020-05-17 09:06 | Outpatient (BNVA) | payer MEDICARE, MEDICAID, SELFPAY | PROVIDERS: PCP Family Medicine; Visit Provider Nurse Practitioner | DX: M54.16 Radiculopathy, lumbar region (principal); M47.816 Spondylosis without myelopathy or radiculopathy, lumbar region; M54.9 Dorsalgia, unspecified; M48.061 Spinal stenosis, lumbar region without neurogenic claudication; Z79.891 Long term (current) use of opiate analgesic | CPT/HCPCS: 99214 ==

== ENCOUNTER 2020-06-06 15:45 | Emergency (ER) | payer MEDICARE, MEDICAID, SELFPAY ==
[2020-06-06 15:58] VITALS: BP 134/67; PULSE 68; RESP 18; TEMP 36.7; O2SAT 98; BMI 25.0
--- NOTE | 2020-06-06 16:31 | CTR_ITS ---
PROCEDURE INFORMATION: Exam: CT Head Without Contrast Exam date and time: 06/06/2020 4:50 PM Age: 74 years old Clinical indication: Dizziness; Additional info: Dizziness; Trouble with ambulation TECHNIQUE: Imaging protocol: Computed tomography of the head without contrast. Radiation optimization: All CT scans at this facility use at least one of these dose optimization techniques: automated exposure control; mA and/or kV adjustment per patient size (includes targeted exams where dose is matched to clinical indication); or iterative reconstruction. COMPARISON: CT head wo con* [id number] 09/16/2019 3:38 PM RADIATION DOSE METRICS: Total DLP (mGy-cm): 799.01 FINDINGS: Brain: Mild cerebral cortical atrophy. No hemorrhage. Unremarkable white matter. No mass effect. Cerebral ventricles: No ventriculomegaly. Bones/joints: Unremarkable. No acute fracture. Paranasal sinuses: Visualized sinuses are unremarkable. No fluid levels. Mastoid air cells: Visualized mastoid air cells are well aerated. Soft tissues: Unremarkable. CT/CT head wo con* [id number] IMPRESSION: 1. No acute intracranial abnormality. 2. No significant change from comparison 09/16/2019. Radiation Dose CTDIVOL = (mGy): DLP = 799.01 (mGy-cm)
--- NOTE | 2020-06-06 16:31 | XR_ITS ---
WS: [id number] Exam: XR chest 1V portable [id number] Date/Time of Exam: 06/06/2020 4:33 PM Reason For Exam: weakness Comparison 04/04/2020. The heart is enlarged but unchanged in size. The lungs are clear and fully inflated. Normal mediastin al structures. Signs of cardiac valve replacement and median sternotomy. A permanent cardiac pacer roberts perimposes the left chest. XR/XR chest 1V portable [id number] IMPRESSION: 1. Cardiac enlargement unchanged. No acute cardiopulmonary finding.
--- NOTE | 2020-06-06 16:32 | ED_ITS ---
Documented by User: HOLLIS Coe 06/07/20 07:06 HPI - Dizziness General: Chief Complaint: Dizziness Stated Complaint: weakness, dizziness, nausea Time Seen by Provider: 06/06/20 16:15 Source: patient and family Mode of arrival: wheelchair Limitations: no limitations History of Present Illness: HPI Narrative: Patient is a 74-year-old female with a history of HTN, hyperlipidemia, bradycardia with recent pacemaker implantation, CHF, hypothyroidism, dementia, and artificial aortic valve on warfarin anticoagulation here for complaints of dizziness. Patient tells me she woke up this morning and was extremely dizzy to the point where she could not get out of bed. She was also complaining of some right sided neck and shoulder pain although states this has subsided. Family member in the room states that patient has not been able to ambulate all day secondary to her dizziness and weakness which is very abnormal for her. Patient tells me approximately two weeks ago she had a pacemaker implanted. Patient has a history of bradycardia as well as paroxysmal atrial fibrillation. [facility] ED PFSH: Medical History Arthritis, lumbar spine Atrial fibrillation Chronic atrial fibrillation Patient has history of intermittent atrial fibrillation. Chronic lumbar radiculopathy Depression Encounter for long-term opiate analgesic use History of common carotid artery stent placement Clinically stable Hypercholesterolemia Hypertension Hypothyroidism Pacemaker Spinal stenosis, lumbar region without neurogenic claudication Surgical History Aortic valve replaced 2000 H/O aortic valve replacement H/O section History of appendectomy History of bilateral carotid endarterectomy History of carpal tunnel surgery of left wrist History of carpal tunnel surgery of right wrist Family History Mother Dementia Father Clotting disorder Blood clots Social History Smoking and tobacco status: former smoker Second hand smoke exposure: No Alcohol intake: never Lives independently: Yes Household members: significant other History of recent travel: No Physical Exam Const: COMMON NORMALS: alert ORIENTATION/CONSCIOUSNESS: Yes oriented to person, Yes oriented to place and Yes oriented to time Neuro: JIMBO COMA SCALE: document GCS findings Jimbo coma scale eye opening: Spontaneous Jimbo coma scale verbal response: Orientated Jimbo coma scale motor response: Obey commands Jimbo coma scale total score: 15 SENSORIUM/ORIENTATION: Yes alert, Yes oriented to person, Yes oriented to place and Yes oriented to time SPEECH: speech normal GAIT: Yes Shuffling gait present Course Vital Signs: Vital signs: Vital Signs Temperature 98.0 F 06/06/20 15:58 Pulse Rate 77 06/06/20 21:16 Respiratory Rate 16 06/06/20 21:16 Blood Pressure 147/84 06/06/20 21:16 Pulse Oximetry 94 06/06/20 21:16 MDM - Dizziness MDM Narrative: Medical decision making narrative: I saw this patient briefly at the end of my shift. Care transferred to SARIKA Peters pending remainder of her care. CT head is negative. Pending remainder of work up. Lab Data: Labs: Lab Results 06/06/20 06/06/20 06/06/20 Range/Units 17:00 17:00 17:00 WBC 9.0 (4.0-10.0) 10^3/ uL RBC 3.72 L (4.1-5.3) 10^6/u L Hgb 12.3 (11.5-15.3) g/dL Hct 38.5 (37.0-47.0) % MCV 103.5 H (81-99) fL MCH 33.1 (28.0-34.0) pg MCHC 31.9 (30.0-36.0) g/dL RDW 13.5 (12.1-15.1) % Plt Count 196 (130-400) 10^3/c mm MPV 9.2 (7.4-10.4) fL Neut % (Auto) 84.9 % Lymph % (Auto) 8.6 % [place] % (Auto) 5.5 % Eos % (Auto) 0.3 % Baso % (Auto) 0.3 % Neut # (Auto) 7.60 (1.8-7.7) 10^3/u L Lymph # (Auto) 0.8 (0.8-4.8) 10^3/u L [place] # (Auto) 0.5 (0.2-0.9) 10^3/u L Eos # (Auto) 0.0 (0.0-0.8) 10^3/u L Baso # (Auto) 0.0 (0.0-0.1) 10^3/u L Nucleated RBC % (a uto) 0 % Nucleated RBCs # 0.0 /100WBC PT 16.50 H (12.1-14.9) SECO NDS INR 1.29 H (0.8-1.2) Sodium 141 (136-145) mmol/L Potassium 4.4 (3.5-5.1) mmol/L Chloride 101 (98-107) mmol/L Carbon Dioxide 31 H (22-29) mmol/L Anion Gap 13.4 (5-19) BUN 20 (8-23) mg/dL Creatinine 1.2 H (0.5-0.9) mg/dL GFR Calculation Not Reportable Glucose 111 (65-115) mg/dL Calculated Osmolal ity 295 (285-295) mOsm/k g Calcium 9.3 (8.5-10.5) mg/dL Total Bilirubin 0.6 (0.15-1.2) mg/dL AST 31 (0-32) U/L ALT 39 H (0-33) U/L Alkaline Phosphata se 64 (35-105) IU/L Troponin T Baselin e (0-10) ng/L Troponin T 120 Min [place] (0-10) ng/L Delta Troponin T (0-10) ABS# NT-Pro-B Natriuret Pep 2908 H (0-125) pg/mL Total Protein 7.0 (6.6-8.7) g/dL Albumin 4.4 (3.5-5.2) g/dL Globulin 2.6 (1.3-4.6) g/dL TSH 37.90 H (0.27-4.20) uIU/ mL Urine Color (Yellow) Urine Appearance (CLEAR) Urine pH (5-7) Ur Specific Gravit y (1.005-1.030) Urine Protein (Negative) Urine Glucose (UA) (Normal) Urine Ketones (Negative) Urine Blood (Negative) Urine Nitrate (Negative) Urine Bilirubin (Negative) Urine Urobilinogen (Negative) mg/dL Ur Leukocyte Jayde ase (Negative) 06/06/20 06/06/20 06/06/20 Range/Units 17:00 17:50 19:13 WBC (4.0-10.0) 10^3/ uL RBC (4.1-5.3) 10^6/u L Hgb (11.5-15.3) g/dL Hct (37.0-47.0) % MCV (81-99) fL MCH (28.0-34.0) pg MCHC (30.0-36.0) g/dL RDW (12.1-15.1) % Plt Count (130-400) 10^3/c mm MPV (7.4-10.4) fL Neut % (Auto) % Lymph % (Auto) % [place] % (Auto) % Eos % (Auto) % Baso % (Auto) % Neut # (Auto) (1.8-7.7) 10^3/u L Lymph # (Auto) (0.8-4.8) 10^3/u L [place] # (Auto) (0.2-0.9) 10^3/u L Eos # (Auto) (0.0-0.8) 10^3/u L Baso # (Auto) (0.0-0.1) 10^3/u L Nucleated RBC % (a uto) % Nucleated RBCs # /100WBC PT (12.1-14.9) SECO NDS INR (0.8-1.2) Sodium (136-145) mmol/L Potassium (3.5-5.1) mmol/L Chloride (98-107) mmol/L Carbon Dioxide (22-29) mmol/L Anion Gap (5-19) BUN (8-23) mg/dL Creatinine (0.5-0.9) mg/dL GFR Calculation Glucose (65-115) mg/dL Calculated Osmolal ity (285-295) mOsm/k g Calcium (8.5-10.5) mg/dL Total Bilirubin (0.15-1.2) mg/dL AST (0-32) U/L ALT (0-33) U/L Alkaline Phosphata se (35-105) IU/L Troponin T Baselin e 14 H (0-10) ng/L Troponin T 120 Min [place] 12.87 H (0-10) ng/L Delta Troponin T -1.13 L (0-10) ABS# NT-Pro-B Natriuret Pep (0-125) pg/mL Total Protein (6.6-8.7) g/dL Albumin (3.5-5.2) g/dL Globulin (1.3-4.6) g/dL TSH (0.27-4.20) uIU/ mL Urine Color Straw (Yellow) Urine Appearance Clear (CLEAR) Urine pH 5 (5-7) Ur Specific Gravit y 1.010 (1.005-1.030) Urine Protein Neg (Negative) Urine Glucose (UA) Norm (Normal) Urine Ketones Negative (Negative) Urine Blood Neg (Negative) Urine Nitrate Negative (Negative) Urine Bilirubin Neg (Negative) Urine Urobilinogen Norm (Negative) mg/dL Ur Leukocyte Jayde ase Negative (Negative) 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% Condition: Stable Prescriptions: New aspirin 81 mg tablet,delayed release (DR/EC) 81 mg PO DAILY Qty: 20 RF: 0 No Action warfarin 2 mg tablet 2 mg PO DIRECTED RF: 0 warfarin 3 mg tablet 3 mg PO DIRECTED RF: 0 simvastatin 40 mg tablet 40 mg PO DAILY@1000 RF: 0 hydrocodone-acetaminophen 10-325 mg tablet 1 tab PO QID PRN (Reason: pain) 30 Days Qty: 120 RF: 0 levothyroxine 100 mcg Tablet 100 mcg PO DAILY@10 RF: 0 lorazepam 0.5 mg Tablet 0.5 mg PO BID PRN (Reason: Anxiety) RF: 0 potassium chloride 20 mEq Tablet Extended Release 20 meq PO BID@10,21 RF: 0 nitroglycerin [Nitrostat] 0.4 mg Tablet, Sublingual 0.4 mg sublingual Q5M PRN (Reason: Chest Pain) Qty: 25 RF: 0 donepezil 5 mg Tablet 5 mg PO BEDTIME@21 RF: 0 amlodipine 2.5 mg Tablet 2.5 mg PO DAILY@10 RF: 0 atorvastatin 40 mg tablet 40 mg PO DAILY@1000 RF: 0 Pacerone 200 mg tablet 200 mg PO DAILY@1000 RF: 0 cyanocobalamin (vitamin B-12) 1,000 mcg tablet 1,000 mcg PO DAILY@1000 RF: 0 spironolactone 25 mg tablet 25 mg PO DAILY@1000 RF: 0 Zoloft 25 mg tablet 50 mg PO DAILY@1000 RF: 0 Lasix 20 mg tablet 40 mg PO DAILY@1000 RF: 0 gabapentin 100 mg capsule 200 mg PO TID@10,12,21 RF: 0 ferrous sulfate 325 mg (65 mg iron) Tablet 325 mg PO DAILY@10 RF: 0 Discharge Orders: Discharge ED (Routine); Ordered 06/06/20 Ordered By: Abi Al Referrals: Ruy Palacio MD [Primary Care Provider] - Discharge Diet: Cardiac Patient Instructions: Vertigo (ED), Lightheadedness (ED), Dizziness (ED), Opioid Safety Activity Restrictions/Additional Instructions: Follow-up with Dr. Steward as scheduled, and to 2020, repeat INR tomorrow and call Dr. Steward's office for further recommendations Take aspirin, 81 mg daily rehabilitation services counselor will contact you with an appointment appointment with Dr. Mukherjee for abnormal findings of right carotid arterial stent. Take it easy today and tomorrow, rest at home, return to the emergency department if you develop increased dizziness, or more concerning findings such as unilateral weakness or chest pain. Coding Level of Care Code ED Dusting And Brushing Machine Operator for Chg Fwd Exam Comprehensive Documented by User: ALEXANDER Perez 06/06/20 22:08 HPI - Dizziness General: Chief Complaint: Dizziness Stated Complaint: weakness, dizziness, nausea Time Seen by Provider: 06/06/20 16:15 History of Present Illness: HPI Narrative: 74-year-old female patient presents to the emergency department with acute onset of dizziness that started upon awakening this morning, she reports could not walk could not focus, reports room was spinning. She states could have fallen if she did not have help at the time. She reports near falls x 2 yesterday and this am due to weakness. She denies hitting her head or neck, reports s/o was available to help her and did not fall. Reports chronic back low pain but has not worsened. She reports dizzy spells in the past but spell she experienced today is different from others. She reports was worse. She denies fever or chills. Denies exposure to individuals with illness. She reports recent increase of pain medication, Neurontin, by her pain management provider, 05/17/2020. She remains on Coumadin for valve replacement, AVR 2000. [place] Supervisor is Dr. Steward, history of CTA, carotid endarterectomy bilateral. She reports since coming to the hospital, she feels improved. States dizziness has improved. She reports neck pain started this morning, pain is worse with movement. Located on the right lateral side. MD elicited complaint: dizziness, difficulty walking, vertigo and disequilibrium Pertinent past history: pacemaker Onset (ago): hour(s) (10) Timing: awoke with symptoms Severity: moderate Description: room spinning , lightheadedness, off-balance and difficulty walking Context: change in medication History of similar symptoms: Yes Exacerbating factors: movement/ambulation and change in body position Relieving factors: remaining still, lying down and keeping eyes closed Associated symptoms: Reports malaise, nausea and weakness; Denies chest pain, chills, diaphoresis, headache(s), nasal congestion, palpitations or syncope Associated neuro symptoms: Reports confusion Stroke scale total: 0 Review of Systems General: Reports: 10 or more systems reviewed and unremarkable except in HPI and below Const: Reports: fatigue and malaise; Denies: fever(s), chills, body aches, change in appetite or diaphoresis Eyes: Denies: change in vision, blurry vision, photophobia, eye discomfort or eye redness ENMT: Denies: throat pain, hoarseness, dental pain, disequilibrium, nasal discharge or nasal congestion Card: Reports: lightheadedness; Denies: chest pain, palpitations, irregular heart rhythm, swelling of feet/ankles, syncope or dyspnea on exertion Resp: Denies: dyspnea, productive cough, non-productive cough, wheezing or chest congestion GI: Reports: nausea; Denies: abdominal pain, early satiety, diarrhea or constipation : Denies: difficulty voiding or dysuria Musc: Denies: back pain, extremity swelling, joint pain, joint warmth, joint stiffness, muscle cramps or muscle weakness Skin/Breast: Denies: rash, pruritus or skin tenderness Neuro: Reports: weakness in extremities, lack of coordination, difficulty walking, dizziness, vertigo, confusion and difficulty communicating thoughts; Denies: headache(s) Psych: Denies: anxiety, depression or irritability Cristobal/Lymph: Denies: easy bruising PFSH ED PFSH: Medical History Arthritis, lumbar spine Atrial fibrillation Chronic atrial fibrillation Patient has history of intermittent atrial fibrillation. Chronic lumbar radiculopathy Depression Encounter for long-term opiate analgesic use History of common carotid artery stent placement Clinically stable Hypercholesterolemia Hypertension Hypothyroidism Pacemaker Spinal stenosis, lumbar region without neurogenic claudication Surgical History Aortic valve replaced 2000 H/O aortic valve replacement H/O section History of appendectomy History of bilateral carotid endarterectomy History of carpal tunnel surgery of left wrist History of carpal tunnel surgery of right wrist Family History Mother Dementia Father Clotting disorder Blood clots Social History Smoking and tobacco status: former smoker Second hand smoke exposure: No Alcohol intake: never Lives independently: Yes Household members: significant other History of recent travel: No Physical Exam Const: COMMON NORMALS: no acute distress, average body habitus, patient oriented x3, healthy appearing, alert and well nourished EXAM LIMITATIONS: no altered mental status GENERAL APPEARANCE: cooperative, comfortable, well k empt, well developed, frail appearing and well hydrated; not anxious and not ill appearing NUTRITIONAL APPEARANCE: thin ORIENTATION/CONSCIOUSNESS: Yes awake, Yes oriented to person, Yes oriented to place and Yes oriented to time; not confused HENMT: COMMON NORMALS: normocephalic, atraumatic, external ears normal, Normal external nose present and moist oral mucous membranes HEAD & SCALP: normal to inspection, normocephalic and atraumatic; no scalp tenderness and no Temporal artery tenderness present FACE & SINUS: normal facial exam and face symmetric NOSE: Normal external nose present, No nasal polyps present and No nasal discharge present EXTERNAL EAR: Yes external ears normal MOUTH: Normal oral and palatal mucosa present, lip normal and tongue normal THROAT: posterior oropharynx normal and uvula midline Eye: COMMON NORMALS: Equal, round and reactive pupils present, EOMs intact bilaterally and conjunctivae normal GENERAL EYE: appearance normal, both eyes and all related structures VISUAL BOWSER: No peripheral vision loss ALIGNMENT: Yes alignment normal EYELID: eyelids normal CONJUNCTIVA: Yes conjunctivae normal PUPIL: Yes Equal, round and reactive pupils present Neck/C-Spine: COMMON NORMALS: full ROM, no lymphadenopathy and supple GENERAL: Yes normal visual inspection and Yes trachea midline CERVICAL SPINE: Yes cervical ROM normal, Yes pain with cervical ROM with lateral flexion to the right, with lateral flexion to the left and with extension, No Cervical spine tenderness, Yes Paracervical muscle tenderness right, Yes Paracervical spasm right and No Trapezius muscle tenderness Lymph: LYMPHATIC: no lymphadenopathy noted Chest: COMMONS NORMALS: normal inspection of the chest and normal palpation of entire chest wall Breast/axilla inspection: Yes no chest deformity, asymmetry, normal contours, no nodules, masses, tenderness Resp: COMMON NORMALS: normal respiratory effort, No retractions, No use of accessory muscles and clear to auscultation bilaterally EFFORT & INSPECTION: Yes able to speak in complete sentences, No labored, No segmental paradoxical chest wall movement and No audible wheezes AUSCULTATION: clear to auscultation bilaterally and lung sounds not diminished Cardio: COMMON NORMALS: regular rate, regular rhythm, S1 normal heart sound present, S2 normal heart sound present and Peripheral pulses 2+ throughout RATE: regular rate RHYTHM: regular rhythm HEART SOUNDS: S1 normal heart sound present and S2 normal heart sound present PERIPHERAL PULSES: Peripheral pulses 2+ throughout GI: COMMON NORMALS: Normal to inspection, nondistended, normoactive bowel sounds present, Soft to palpation and non-tender INSPECTION: Yes normal to inspection, No central obesity and No visible herniation PALPATION: Yes Soft to palpation : COMMON NORMALS: Yes no CVA tenderness BLADDER/KIDNEY EXAM: Yes no CVA tenderness Back/Pelvis: COMMON NORMALS: no CVA tenderness and thoracic and lumbar spine normal to inspection Extremity: COMMON NORMALS: normal to inspection and capillary refill normal Neuro: JIMBO COMA SCALE: document GCS findings Scott coma scale eye opening: Spontaneous Scott coma scale verbal response: Orientated Scott coma scale motor response: Obey commands Scott coma scale total score: 15 COMMON NORMALS: patient oriented x3, moves all extremities, no focal motor deficits and no sensory deficits noted SENSORIUM/ORIENTATION: Yes alert, Yes oriented to person, Yes oriented to place, Yes oriented to time and No Orientation impaired COORDINATION/BALANCE: [id number] test normal and Romberg test positive SPEECH: speech normal GAIT: Yes Ataxic gait present MONOFILAMENT EXAM PERFORMED: Yes MOTOR EXAM: Pronator motor function not present, no tremor noted and Normal motor muscle tone present throughout COORDINATION: [id number] test normal PUPIL EXAM: Normal pupillary reactivity/response: bilateral Right pupil size (mm): 3 Left pupil size (mm): 3 Psych: COMMON NORMALS: mental status grossly normal, Normal thought process present, cooperative, normal affect, speech normal, activity/motor behavior normal, denies hallucinations, denies homicidal ideation and denies suicidal ideation APPEARANCE: Yes grossly normal and Yes well kempt ACTIVITY/MOTOR BEHAVIOR: Yes appropriate eye contact SPEECH: Yes normal speech THOUGHT PROCESS: Normal thought process present Skin: COMMON NORMALS: no rashes or lesions noted and turgor normal GENERAL SKIN EXAM: no rashes or lesions noted and turgor normal Course Consultations: Consultation #1: Dr Bird, vascular surgeon [facility], deboning team leader provider for Dr Hansen, I discussed history of present illness, clinical findings and serology results as well as CTA head and neck and CT head without contrast findings. I discussed my concern of greater than 90% mid stent occlusion of the right carotid artery, I discussed patient's clinical complaint of dizziness. Results were discussed of no occlusion of cerebral, vertebral arteries of the brain. He advised patient can follow-up with Dr. Umaña as an outpatient for replacement of right carotid stent. Advised since right posterior cerebral artery, left posterior cerebral artery basilar artery and right and left vertebral arteries were unremarkable without occlusion or stenosis significant stenosis, patient could start aspirin, 81 mg daily as well as increase dosing of Coumadin for therapeutic levels. Time: 19:45 Vital Signs: Vital signs: Vital Signs Temperature 98.0 F 06/06/20 15:58 Pulse Rate 77 06/06/20 21:16 Respiratory Rate 16 06/06/20 21:16 Blood Pressure 147/84 06/06/20 21:16 Pulse Oximetry 94 06/06/20 21:16 MDM - Dizziness MDM Narrative: Medical decision making narrative: 74-year-old female patient presents to the emergency department with acute onset dizziness upon awakening this morning. Permanent pacemaker placed 2 weeks ago, history of aortic valve replacement, chronic Coumadin use. NIH stroke scale 0, CT of the head without acute findings, CTA head and neck with right and left posterior cerebral, basilar and right and left vertebral arteries without significant stenosis, occlusion or aneurysms. CTA of the neck did reveal right carotid artery stent with 90% stenosis, severe, midportion. Left carotid artery stent with mild severity less than 50%. I called and spoke with on-call provider for Dr. Brennan at [facility] as he provided stent placement for the patient. He advised to start aspirin daily as well as increase Coumadin dosing for therapeutic INR. He reports occlusion is not emergent and can be followed as an outpatient. Social service referral placed to assist with follow-up appointment. Patient has follow-up appointment with Dr. Steward in 2 days. She denied chest pain, at the end of her stay, dizziness had resolved with use of meclizine. She was ambulatory without ataxic gait or use of her walker which she chronically uses at home. Nausea resolved, she denied continued neck pain upon discharge. She requested to go home did not wish to stay. Agrees to return to the emergency department if she develops worsening symptoms. Serial EKG and troponin without acute process. Negative delta appreciated at 2-hour herve. I discussed case with Dr. Moncada and Dr. Cardona. No further instructions provided. Dr. Moncada did states she would be glad to see her in 2 weeks if dizziness persists. Social service referral placed for an appointment. BNP noted to be slightly elevated from baseline, she has not received Lasix today, Lasix was administered here in the ED, she wishes to follow-up with Dr. Steward on as scheduled for further instructions. She denies shortness of breath or chest pain, swelling to the BLE. Lab Data: Labs: Lab Results 06/06/20 06/06/20 06/06/20 Range/Units 17:00 17:00 17:00 WBC 9.0 (4.0-10.0) 10^3/ uL RBC 3.72 L (4.1-5.3) 10^6/u L Hgb 12.3 (11.5-15.3) g/dL Hct 38.5 (37.0-47.0) % MCV 103.5 H (81-99) fL MCH 33.1 (28.0-34.0) pg MCHC 31.9 (30.0-36.0) g/dL RDW 13.5 (12.1-15.1) % Plt Count 196 (130-400) 10^3/c mm MPV 9.2 (7.4-10.4) fL Neut % (Auto) 84.9 % Lymph % (Auto) 8.6 % [place] % (Auto) 5.5 % Eos % (Auto) 0.3 % Baso % (Auto) 0.3 % Neut # (Auto) 7.60 (1.8-7.7) 10^3/u L Lymph # (Auto) 0.8 (0.8-4.8) 10^3/u L [place] # (Auto) 0.5 (0.2-0.9) 10^3/u L Eos # (Auto) 0.0 (0.0-0.8) 10^3/u L Baso # (Auto) 0.0 (0.0-0.1) 10^3/u L Nucleated RBC % (a uto) 0 % Nucleated RBCs # 0.0 /100WBC PT 16.50 H (12.1-14.9) SECO NDS INR 1.29 H (0.8-1.2) Sodium 141 (136-145) mmol/L Potassium 4.4 (3.5-5.1) mmol/L Chloride 101 (98-107) mmol/L Carbon Dioxide 31 H (22-29) mmol/L Anion Gap 13.4 (5-19) BUN 20 (8-23) mg/dL Creatinine 1.2 H (0.5-0.9) mg/dL GFR Calculation Not Reportable Glucose 111 (65-115) mg/dL Calculated Osmolal ity 295 (285-295) mOsm/k g Calcium 9.3 (8.5-10.5) mg/dL Total Bilirubin 0.6 (0.15-1.2) mg/dL AST 31 (0-32) U/L ALT 39 H (0-33) U/L Alkaline Phosphata se 64 (35-105) IU/L Troponin T Baselin e (0-10) ng/L Troponin T 120 Min [place] (0-10) ng/L Delta Troponin T (0-10) ABS# NT-Pro-B Natriuret Pep 2908 H (0-125) pg/mL Total Protein 7.0 (6.6-8.7) g/dL Albumin 4.4 (3.5-5.2) g/dL Globulin 2.6 (1.3-4.6) g/dL TSH 37.90 H (0.27-4.20) uIU/ mL Urine Color (Yellow) Urine Appearance (CLEAR) Urine pH (5-7) Ur Specific Gravit y (1.005-1.030) Urine Protein (Negative) Urine Glucose (UA) (Normal) Urine Ketones (Negative) Urine Blood (Negative) Urine Nitrate (Negative) Urine Bilirubin (Negative) Urine Urobilinogen (Negative) mg/dL Ur Leukocyte Jayde ase (Negative) 06/06/20 06/06/20 06/06/20 Range/Units 17:00 17:50 19:13 WBC (4.0-10.0) 10^3/ uL RBC (4.1-5.3) 10^6/u L Hgb (11.5-15.3) g/dL Hct (37.0-47.0) % MCV (81-99) fL MCH (28.0-34.0) pg MCHC (30.0-36.0) g/dL RDW (12.1-15.1) % Plt Count (130-400) 10^3/c mm MPV (7.4-10.4) fL Neut % (Auto) % Lymph % (Auto) % [place] % (Auto) % Eos % (Auto) % Baso % (Auto) % Neut # (Auto) (1.8-7.7) 10^3/u L Lymph # (Auto) (0.8-4.8) 10^3/u L [place] # (Auto) (0.2-0.9) 10^3/u L Eos # (Auto) (0.0-0.8) 10^3/u L Baso # (Auto) (0.0-0.1) 10^3/u L Nucleated RBC % (a uto) % Nucleated RBCs # /100WBC PT (12.1-14.9) SECO NDS INR (0.8-1.2) Sodium (136-145) mmol/L Potassium (3.5-5.1) mmol/L Chloride (98-107) mmol/L Carbon Dioxide (22-29) mmol/L Anion Gap (5-19) BUN (8-23) mg/dL Creatinine (0.5-0.9) mg/dL GFR Calculation Glucose (65-115) mg/dL Calculated Osmolal ity (285-295) mOsm/k g Calcium (8.5-10.5) mg/dL Total Bilirubin (0.15-1.2) mg/dL AST (0-32) U/L ALT (0-33) U/L Alkaline Phosphata se (35-105) IU/L Troponin T Baselin e 14 H (0-10) ng/L Troponin T 120 Min [place] 12.87 H (0-10) ng/L Delta Troponin T -1.13 L (0-10) ABS# NT-Pro-B Natriuret Pep (0-125) pg/mL Total Protein (6.6-8.7) g/dL Albumin (3.5-5.2) g/dL Globulin (1.3-4.6) g/dL TSH (0.27-4.20) uIU/ mL Urine Color Straw (Yellow) Urine Appearance Clear (CLEAR) Urine pH 5 (5-7) Ur Specific Gravit y 1.010 (1.005-1.030) Urine Protein Neg (Negative) Urine Glucose (UA) Norm (Normal) Urine Ketones Negative (Negative) Urine Blood Neg (Negative) Urine Nitrate Negative (Negative) Urine Bilirubin Neg (Negative) Urine Urobilinogen Norm (Negative) mg/dL Ur Leukocyte Jayde ase Negative (Negative) Imaging Data^: Other Imaging: Radiologist's impression: = PROCEDURE INFORMATION: Exam: CT Angiography Neck With Contrast Exam date and time: 06/06/2020 6:26 PM Age: 74 years old Clinical indication: Dizziness and giddiness; Prior surgery; Surgery type: Amor carotid, aortic valve TECHNIQUE: Imaging protocol: Computed tomography angiography of the neck with intravenous contrast. 3D rendering (Not supervised by radiologist): MIP and/or 3D reconstructed images were created by the technologist. Radiation optimization: All CT scans at this facility use at least one of these dose optimization techniques: automated exposure control; mA and/or kV adjustment per patient size (includes targeted exams where dose is matched to clinical indication); or iterative reconstruction. Contrast material: VISI; Contrast volume: 95 ml; Contrast route: INTRAVENOUS (IV); COMPARISON: CT angio headne* [id number] 01/17/2020 10:08 AM RADIATION DOSE METRICS: Total DLP (mGy-cm): 2418.28 FINDINGS: Right common carotid artery: There is a stent in the right common carotid artery which is patent. Right internal carotid artery: The stent extends into the mid right internal carotid artery. Within the midportion of the stent there appears to be in stent stenosis and severe luminal narrowing greater than 90% which is increased from prior imaging. This is best characterized on the axial series 3, image 68 as well as the sagittal image 62. Distal internal carotid artery is patent with no significant stenosis. Right external carotid artery: No occlusion or stenosis of the origin. Right vertebral artery: No stenosis. No dissection or occlusion. Left common carotid artery: Atherosclerotic plaques at the origin of the left common carotid artery with at least mild severity stenosis approaching 50%. There is a stent within the the distal left common carotid artery which extends into the proximal left internal carotid artery. There is no significant stenosis of the common carotid artery. There is circumferential in stent stenosis in the distal aspect of the stent with mild severity luminal narrowing approaching 50%. Left internal carotid artery: Partial visualization of left chest ICD. Left external carotid artery: No occlusion or stenosis of the origin. Left vertebral artery: No stenosis. No dissection or occlusion. Aorta: Postsurgical changes of the ascending thoracic aorta which are incompletely assessed. Bones/joints: No acute fracture. Soft tissues: Normal. No significant soft tissue swelling. Lungs: Mild emphysema of the included lung apices. CT/CT angio headneck* [id number] IMPRESSION: 1. Right carotid artery stent demonstrates a short segment of severe stenosis in the midportion greater than 90% which appears increased from prior imaging. 2. Left carotid artery stent is patent with mild severity diffuse in stent stenosis less than 50%. REFERENCES: NASCET CRITERIA. The degree of internal carotid artery stenosis is based on NASCET criteria. Normal is no stenosis. Mild is less than 50% stenosis. Moderate is 50-69% stenosis. Severe is 70% to 99% stenosis. Total occlusion is no detectable patent lumen. Radiation Dose CTDIVOL = (mGy): DLP = 2418.28 (mGy-cm) Dictated By: Herminio Barrientos Signed By: Herminio Barrientos Signed Date/Time: 06/06/201905 DD/ 04 CT Head: Radiologist's impression: [facility] [address] [place] [address] CT Scan Report Signed Patient: Jennifer You Unit #: [id number] : 1945 Age/Sex: 74 / F ADM Date: 06/06/20 Loc: ER Room/Bed: Attending Dr: Ordering Provider/Ordering MD: Abi Al Date of Service: 06/06/20 Procedure(s): CT angio headneck* [id number] Accession Number(s): [id number] Report Number: [id number] PROCEDURE INFORMATION: Exam: CT Angiography Head With Contrast Exam date and time: 06/06/2020 6:26 PM Age: 74 years old Clinical indication: Dizziness and giddiness; Prior surgery; Surgery type: Amor carotid, aortic valve TECHNIQUE: Imaging protocol: Computed tomography angiography of the head with intravenous contrast. 3D rendering (Not supervised by radiologist): MIP and/or 3D reconstructed images were created by the technologist. Radiation optimization: All CT scans at this facility use at least one of these dose optimization techniques: automated exposure control; mA and/or kV adjustment per patient size (includes targeted exams where dose is matched to clinical indication); or iterative reconstruction. Contrast material: VISI; Contrast volume: 95 ml; Contrast route: INTRAVENOUS (IV); COMPARISON: CT angio headneck* [id number] 01/17/2020 10:08 AM RADIATION DOSE METRICS: Total DLP (mGy-cm): 2418.28 FINDINGS: ANTERIOR CIRCULATION: Right internal carotid artery: Unremarkable. Intracranial segment is patent with no significant stenosis. No aneurysm. Right middle cerebral artery: Unremarkable. No occlusion or significant stenosis. No aneurysm. Right anterior cerebral artery: Unremarkable. No occlusion or significant stenosis. No aneurysm. Left internal carotid artery: Unremarkable. Intracranial segment is patent with no significant stenosis. No aneurysm. Left middle cerebral artery: Unremarkable. No occlusion or significant stenosis. No aneurysm. Left anterior cerebral artery: Unremarkable. No occlusion or significant stenosis. No aneurysm. POSTERIOR CIRCULATION: Right vertebral artery: Unremarkable. No occlusion or significant stenosis. No aneurysm. Left vertebral artery: Unremarkable. No occlusion or significant stenosis. No aneurysm. Basilar artery: Unremarkable. No occlusion or significant stenosis. No aneurysm. Right posterior cerebral artery: Unremarkable. No occlusion or significant stenosis. No aneurysm. Left posterior cerebral artery: Unremarkable. No occlusion or significant stenosis. No aneurysm. Brain: No definite mass, mass effect, or midline shift. Cerebral ventricles: No ventriculomegaly. Bones/joints: Unremarkable. No acute fracture. Soft tissues: Unremarkable. IMPRESSION: 1. No arterial occlusion in the brain. 2. No change from comparison 01/17/2020. 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% Condition: Stable Prescriptions: New aspirin 81 mg tablet,delayed release (DR/EC) 81 mg PO DAILY Qty: 20 RF: 0 No Action warfarin 2 mg tablet 2 mg PO DIRECTED RF: 0 warfarin 3 mg tablet 3 mg PO DIRECTED RF: 0 simvastatin 40 mg tablet 40 mg PO DAILY@1000 RF: 0 hydrocodone-acetaminophen 10-325 mg tablet 1 tab PO QID PRN (Reason: pain) 30 Days Qty: 120 RF: 0 levothyroxine 100 mcg Tablet 100 mcg PO DAILY@10 RF: 0 lorazepam 0.5 mg Tablet 0.5 mg PO BID PRN (Reason: Anxiety) RF: 0 potassium chloride 20 mEq Tablet Extended Release 20 meq PO BID@10,21 RF: 0 nitroglycerin [Nitrostat] 0.4 mg Tablet, Sublingual 0.4 mg sublingual Q5M PRN (Reason: Chest Pain) Qty: 25 RF: 0 donepezil 5 mg Tablet 5 mg PO BEDTIME@21 RF: 0 amlodipine 2.5 mg Tablet 2.5 mg PO DAILY@10 RF: 0 atorvastatin 40 mg tablet 40 mg PO DAILY@1000 RF: 0 Pacerone 200 mg tablet 200 mg PO DAILY@1000 RF: 0 cyanocobalamin (vitamin B-12) 1,000 mcg tablet 1,000 mcg PO DAILY@1000 RF: 0 spironolactone 25 mg tablet 25 mg PO DAILY@1000 RF: 0 Zoloft 25 mg tablet 50 mg PO DAILY@1000 RF: 0 Lasix 20 mg tablet 40 mg PO DAILY@1000 RF: 0 gabapentin 100 mg capsule 200 mg PO TID@10,12,21 RF: 0 ferrous sulfate 325 mg (65 mg iron) Tablet 325 mg PO DAILY@10 RF: 0 Discharge Orders: Discharge ED (Routine); Ordered 06/06/20 Ordered By: Abi Al Referrals: Ruy Palacio MD [Primary Care Provider] - Discharge Diet: Cardiac Patient Instructions: Vertigo (ED), Lightheadedness (ED), Dizziness (ED), Opioid Safety Activity Restrictions/Additional Instructions: Follow-up with Dr. Steward as scheduled, and to 2020, repeat INR tomorrow and call Dr. Steward's office for further recommendations Take aspirin, 81 mg daily rehabilitation services counselor will contact you with an appointment appointment with Dr. Mukherjee for abnormal findings of right carotid arterial stent. Take it easy today and tomorrow, rest at home, return to the emergency department if you develop increased dizziness, or more concerning findings such as unilateral weakness or chest pain. Coding Level of Care Code ED Dusting And Brushing Machine Operator for Chg Fwd Exam Comprehensive Documented by User: Bryan Pham MD 06/07/20 11:13 HPI - Dizziness General: Chief Complaint: Dizziness Stated Complaint: weakness, dizziness, nausea Time Seen by Provider: 06/06/20 16:15 [facility] ED PFSH: Medical History Arthritis, lumbar spine Atrial fibrillation Chronic atrial fibrillation Patient has history of intermittent atrial fibrillation. Chronic lumbar radiculopathy Depression Encounter for long-term opiate analgesic use History of common carotid artery stent placement Clinically stable Hypercholesterolemia Hypertension Hypothyroidism Pacemaker Spinal stenosis, lumbar region without neurogenic claudication Surgical History Aortic valve replaced 2000 H/O aortic valve replacement H/O section History of appendectomy History of bilateral carotid endarterectomy History of carpal tunnel surgery of left wrist History of carpal tunnel surgery of right wrist Family History Mother Dementia Father Clotting disorder Blood clots Social History Smoking and tobacco status: former smoker Second hand smoke exposure: No Alcohol intake: never Lives independently: Yes Household members: significant other History of recent travel: No Course Vital Signs: Vital signs: Vital Signs Temperature 98.0 F 06/06/20 15:58 Pulse Rate 77 06/06/20 21:16 Respiratory Rate 16 06/06/20 21:16 Blood Pressure 147/84 06/06/20 21:16 Pulse Oximetry 94 06/06/20 21:16 MDM - Dizziness Lab Data: Labs: Lab Results 06/06/20 06/06/20 06/06/20 Range/Units 17:00 17:00 17:00 WBC 9.0 (4.0-10.0) 10^3/ uL RBC 3.72 L (4.1-5.3) 10^6/u L Hgb 12.3 (11.5-15.3) g/dL Hct 38.5 (37.0-47.0) % MCV 103.5 H (81-99) fL MCH 33.1 (28.0-34.0) pg MCHC 31.9 (30.0-36.0) g/dL RDW 13.5 (12.1-15.1) % Plt Count 196 (130-400) 10^3/c mm MPV 9.2 (7.4-10.4) fL Neut % (Auto) 84.9 % Lymph % (Auto) 8.6 % [place] % (Auto) 5.5 % Eos % (Auto) 0.3 % Baso % (Auto) 0.3 % Neut # (Auto) 7.60 (1.8-7.7) 10^3/u L Lymph # (Auto) 0.8 (0.8-4.8) 10^3/u L [place] # (Auto) 0.5 (0.2-0.9) 10^3/u L Eos # (Auto) 0.0 (0.0-0.8) 10^3/u L Baso # (Auto) 0.0 (0.0-0.1) 10^3/u L Nucleated RBC % (a uto) 0 % Nucleated RBCs # 0.0 /100WBC PT 16.50 H (12.1-14.9) SECO NDS INR 1.29 H (0.8-1.2) Sodium 141 (136-145) mmol/L Potassium 4.4 (3.5-5.1) mmol/L Chloride 101 (98-107) mmol/L Carbon Dioxide 31 H (22-29) mmol/L Anion Gap 13.4 (5-19) BUN 20 (8-23) mg/dL Creatinine 1.2 H (0.5-0.9) mg/dL GFR Calculation Not Reportable Glucose 111 (65-115) mg/dL Calculated Osmolal ity 295 (285-295) mOsm/k g Calcium 9.3 (8.5-10.5) mg/dL Total Bilirubin 0.6 (0.15-1.2) mg/dL AST 31 (0-32) U/L ALT 39 H (0-33) U/L Alkaline Phosphata se 64 (35-105) IU/L Troponin T Baselin e (0-10) ng/L Troponin T 120 Min [place] (0-10) ng/L Delta Troponin T (0-10) ABS# NT-Pro-B Natriuret Pep 2908 H (0-125) pg/mL Total Protein 7.0 (6.6-8.7) g/dL Albumin 4.4 (3.5-5.2) g/dL Globulin 2.6 (1.3-4.6) g/dL TSH 37.90 H (0.27-4.20) uIU/ mL Urine Color (Yellow) Urine Appearance (CLEAR) Urine pH (5-7) Ur Specific Gravit y (1.005-1.030) Urine Protein (Negative) Urine Glucose (UA) (Normal) Urine Ketones (Negative) Urine Blood (Negative) Urine Nitrate (Negative) Urine Bilirubin (Negative) Urine Urobilinogen (Negative) mg/dL Ur Leukocyte Jayde ase (Negative) 06/06/20 06/06/20 06/06/20 Range/Units 17:00 17:50 19:13 WBC (4.0-10.0) 10^3/ uL RBC (4.1-5.3) 10^6/u L Hgb (11.5-15.3) g/dL Hct (37.0-47.0) % MCV (81-99) fL MCH (28.0-34.0) pg MCHC (30.0-36.0) g/dL RDW (12.1-15.1) % Plt Count (130-400) 10^3/c mm MPV (7.4-10.4) fL Neut % (Auto) % Lymph % (Auto) % [place] % (Auto) % Eos % (Auto) % Baso % (Auto) % Neut # (Auto) (1.8-7.7) 10^3/u L Lymph # (Auto) (0.8-4.8) 10^3/u L [place] # (Auto) (0.2-0.9) 10^3/u L Eos # (Auto) (0.0-0.8) 10^3/u L Baso # (Auto) (0.0-0.1) 10^3/u L Nucleated RBC % (a uto) % Nucleated RBCs # /100WBC PT (12.1-14.9) SECO NDS INR (0.8-1.2) Sodium (136-145) mmol/L Potassium (3.5-5.1) mmol/L Chloride (98-107) mmol/L Carbon Dioxide (22-29) mmol/L Anion Gap (5-19) BUN (8-23) mg/dL Creatinine (0.5-0.9) mg/dL GFR Calculation Glucose (65-115) mg/dL Calculated Osmolal ity (285-295) mOsm/k g Calcium (8.5-10.5) mg/dL Total Bilirubin (0.15-1.2) mg/dL AST (0-32) U/L ALT (0-33) U/L Alkaline Phosphata se (35-105) IU/L Troponin T Baselin e 14 H (0-10) ng/L Troponin T 120 Min [place] 12.87 H (0-10) ng/L Delta Troponin T -1.13 L (0-10) ABS# NT-Pro-B Natriuret Pep (0-125) pg/mL Total Protein (6.6-8.7) g/dL Albumin (3.5-5.2) g/dL Globulin (1.3-4.6) g/dL TSH (0.27-4.20) uIU/ mL Urine Color Straw (Yellow) Urine Appearance Clear (CLEAR) Urine pH 5 (5-7) Ur Specific Gravit y 1.010 (1.005-1.030) Urine Protein Neg (Negative) Urine Glucose (UA) Norm (Normal) Urine Ketones Negative (Negative) Urine Blood Neg (Negative) Urine Nitrate Negative (Negative) Urine Bilirubin Neg (Negative) Urine Urobilinogen Norm (Negative) mg/dL Ur Leukocyte Jayde ase Negative (Negative) 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% Condition: Stable Prescriptions: New aspirin 81 mg tablet,delayed release (DR/EC) 81 mg PO DAILY Qty: 20 RF: 0 No Action warfarin 2 mg tablet 2 mg PO DIRECTED RF: 0 warfarin 3 mg tablet 3 mg PO DIRECTED RF: 0 simvastatin 40 mg tablet 40 mg PO DAILY@1000 RF: 0 hydrocodone-acetaminophen 10-325 mg tablet 1 tab PO QID PRN (Reason: pain) 30 Days Qty: 120 RF: 0 levothyroxine 100 mcg Tablet 100 mcg PO DAILY@10 RF: 0 lorazepam 0.5 mg Tablet 0.5 mg PO BID PRN (Reason: Anxiety) RF: 0 potassium chloride 20 mEq Tablet Extended Release 20 meq PO BID@10,21 RF: 0 nitroglycerin [Nitrostat] 0.4 mg Tablet, Sublingual 0.4 mg sublingual Q5M PRN (Reason: Chest Pain) Qty: 25 RF: 0 donepezil 5 mg Tablet 5 mg PO BEDTIME@21 RF: 0 amlodipine 2.5 mg Tablet 2.5 mg PO DAILY@10 RF: 0 atorvastatin 40 mg tablet 40 mg PO DAILY@1000 RF: 0 Pacerone 200 mg tablet 200 mg PO DAILY@1000 RF: 0 cyanocobalamin (vitamin B-12) 1,000 mcg tablet 1,000 mcg PO DAILY@1000 RF: 0 spironolactone 25 mg tablet 25 mg PO DAILY@1000 RF: 0 Zoloft 25 mg tablet 50 mg PO DAILY@1000 RF: 0 Lasix 20 mg tablet 40 mg PO DAILY@1000 RF: 0 gabapentin 100 mg capsule 200 mg PO TID@10,12,21 RF: 0 ferrous sulfate 325 mg (65 mg iron) Tablet 325 mg PO DAILY@10 RF: 0 Discharge Orders: Discharge ED (Routine); Ordered 06/06/20 Ordered By: Abi Al Referrals: Ruy Palacio MD [Primary Care Provider] - Discharge Diet: Cardiac Patient Instructions: Vertigo (ED), Lightheadedness (ED), Dizziness (ED), Opioid Safety Activity Restrictions/Additional Instructions: Follow-up with Dr. Steward as scheduled, and to 2020, repeat INR tomorrow and call Dr. Steward's office for further recommendations Take aspirin, 81 mg daily rehabilitation services counselor will contact you with an appointment appointment with Dr. Mukherjee for abnormal findings of right carotid arterial stent. Take it easy today and tomorrow, rest at home, return to the emergency department if you develop increased dizziness, or more concerning findings such as unilateral weakness or chest pain. Coding Level of Care Code ED Dusting And Brushing Machine Operator for Chg Fwd Exam Comprehensive
--- NOTE | 2020-06-06 17:06 | ECG_ITS ---
[facility] Test Date: 2020-06-06 Pat Name: Jennifer You Department: Room: Gender: Female Lithoplate Maker: : 1945 Requested By: Corin Jacobson Order Number: [id number] Yarelis MD: SALVADOR WEISS Measurements Intervals [place] Rate: 64 P: 92 MD: 151 QRS: -76 QRSD: 184 T: 83 QT: 514 QTc: 532 Interpretive Statements ELECTRONIC ATRIAL PACEMAKER ELECTRONIC VENTRICULAR PACEMAKER ABNORMAL RHYTHM ECG Compared to ECG 04/04/2020 06:04:09 No significant changes Electronically Signed On 06-07-2020 20:09:19 JUNIOR STAFF ACCOUNTANT by SALVADOR WEISS [id number]
[2020-06-06 17:17] LABS: Basophils % 0.3 %; Eosinophils % 0.3 %; Hematocrit 38.5 % (37.0-47.0); Hemoglobin 12.3 g/dL (11.5-15.3); Lymphocytes # 0.8 10^3/uL (0.8-4.8); Lymphocytes % 8.6 %; Mean Corpuscular HGB Conc 31.9 g/dL (30.0-36.0); Mean Corpuscular Hemoglobin 33.1 pg (28.0-34.0); Mean Corpuscular Volume 103.5 fL (81-99); Mean Platelet Volume 9.2 fL (7.4-10.4); Monocytes # 0.5 10^3/uL (0.2-0.9); Monocytes % 5.5 %; Neutrophils % 84.9 %; Nucleated Red Blood Cells % 0 %; Platelet Count 196 10^3/cmm (130-400); Red Blood Count 3.72 10^6/uL (4.1-5.3); Red Cell Distribution Width 13.5 % (12.1-15.1)
--- NOTE | 2020-06-06 17:19 | CTR_ITS ---
PROCEDURE INFORMATION: Exam: CT Angiography Head With Contrast Exam date and time: 06/06/2020 6:26 PM Age: 74 years old Clinical indication: Dizziness and giddiness; Prior surgery; Surgery type: Amor carotid, aortic valve TECHNIQUE: Imaging protocol: Computed tomography angiography of the head with intravenous contrast. 3D rendering (Not supervised by radiologist): MIP and/or 3D reconstructed images were created by the technologist. Radiation optimization: All CT scans at this facility use at least one of these dose optimization techniques: automated exposure control; mA and/or kV adjustment per patient size (includes targeted exams where dose is matched to clinical indication); or iterative reconstruction. Contrast material: VISI; Contrast volume: 95 ml; Contrast route: INTRAVENOUS (IV); COMPARISON: CT angio headneck* [id number] 01/17/2020 10:08 AM RADIATION DOSE METRICS: Total DLP (mGy-cm): 2418.28 FINDINGS: ANTERIOR CIRCULATION: Right internal carotid artery: Unremarkable. Intracranial segment is patent with no significant stenosis. No aneurysm. Right middle cerebral artery: Unremarkable. No occlusion or significant stenosis. No aneurysm. Right anterior cerebral artery: Unremarkable. No occlusion or significant stenosis. No aneurysm. Left internal carotid artery: Unremarkable. Intracranial segment is patent with no significant stenosis. No aneurysm. Left middle cerebral artery: Unremarkable. No occlusion or significant stenosis. No aneurysm. Left anterior cerebral artery: Unremarkable. No occlusion or significant stenosis. No aneurysm. POSTERIOR CIRCULATION: Right vertebral artery: Unremarkable. No occlusion or significant stenosis. No aneurysm. Left vertebral artery: Unremarkable. No occlusion or significant stenosis. No aneurysm. Basilar artery: Unremarkable. No occlusion or significant stenosis. No aneurysm. Right posterior cerebral artery: Unremarkable. No occlusion or significant stenosis. No aneurysm. Left posterior cerebral artery: Unremarkable. No occlusion or significant stenosis. No aneurysm. Brain: No definite mass, mass effect, or midline shift. Cerebral ventricles: No ventriculomegaly. Bones/joints: Unremarkable. No acute fracture. Soft tissues: Unremarkable. IMPRESSION: 1. No arterial occlusion in the brain. 2. No change from comparison 01/17/2020. PROCEDURE INFORMATION: Exam: CT Angiography Neck With Contrast Exam date and time: 06/06/2020 6:26 PM Age: 74 years old Clinical indication: Dizziness and giddiness; Prior surgery; Surgery type: Amor carotid, aortic valve TECHNIQUE: Imaging protocol: Computed tomography angiography of the neck with intravenous contrast. 3D rendering (Not supervised by radiologist): MIP and/or 3D reconstructed images were created by the technologist. Radiation optimization: All CT scans at this facility use at least one of these dose optimization techniques: automated exposure control; mA and/or kV adjustment per patient size (includes targeted exams where dose is matched to clinical indication); or iterative reconstruction. Contrast material: VISI; Contrast volume: 95 ml; Contrast route: INTRAVENOUS (IV); COMPARISON: CT angio headneck* [id number] 01/17/2020 10:08 AM RADIATION DOSE METRICS: Total DLP (mGy-cm): 2418.28 FINDINGS: Right common carotid artery: There is a stent in the right common carotid artery which is patent. Right internal carotid artery: The stent extends into the mid right internal carotid artery. Within the midportion of the stent there appears to be in stent stenosis and severe luminal narrowing greater than 90% which is increased from prior imaging. This is best characterized on the axial series 3, image 68 as well as the sagittal image 62. Distal internal carotid artery is patent with no significant stenosis. Right external carotid artery: No occlusion or stenosis of the origin. Right vertebral artery: No stenosis. No dissection or occlusion. Left common carotid artery: Atherosclerotic plaques at the origin of the left common carotid artery with at least mild severity stenosis approaching 50%. There is a stent within the the distal left common carotid artery which extends into the proximal left internal carotid artery. There is no significant stenosis of the common carotid artery. There is circumferential in stent stenosis in the distal aspect of the stent with mild severity luminal narrowing approaching 50%. Left internal carotid artery: Partial visualization of left chest ICD. Left external carotid artery: No occlusion or stenosis of the origin. Left vertebral artery: No stenosis. No dissection or occlusion. Aorta: Postsurgical changes of the ascending thoracic aorta which are incompletely assessed. Bones/joints: No acute fracture. Soft tissues: Normal. No significant soft tissue swelling. Lungs: Mild emphysema of the included lung apices. CT/CT angio headneck* [id number] IMPRESSION: 1. Right carotid artery stent demonstrates a short segment of severe stenosis in the midportion greater than 90% which appears increased from prior imaging. 2. Left carotid artery stent is patent with mild severity diffuse in stent stenosis less than 50%. REFERENCES: NASCET CRITERIA. The degree of internal carotid artery stenosis is based on NASCET criteria. Normal is no stenosis. Mild is less than 50% stenosis. Moderate is 50-69% stenosis. Severe is 70% to 99% stenosis. Total occlusion is no detectable patent lumen. Radiation Dose CTDIVOL = (mGy): DLP = 2418.28 (mGy-cm)
[2020-06-06 17:35] LABS: INR 1.29 (0.8-1.2)
[2020-06-06 17:45] LABS: Troponin(5th) Baseline 14 ng/L (0-10)
[2020-06-06 17:50] LABS: Alanine Aminotransferase 39 U/L (0-33); Albumin Level 4.4 g/dL (3.5-5.2); Alkaline Phosphatase 64 IU/L (35-105); Anion Gap 13.4 (5-19); Aspartate Amino Transferase 31 U/L (0-32); Blood Urea Nitrogen 20 mg/dL (8-23); Calcium 9.3 mg/dL (8.5-10.5); Carbon Dioxide 31 mmol/L (22-29); Chloride 101 mmol/L (98-107); Creatinine Clr Calc Pharmacy 39.8775; Globulin 2.6 g/dL (1.3-4.6); Glucose 111 mg/dL (65-115); NT Pro B Type Natriuretic Pept 2908 pg/mL (0-125); Osmolality Calculated 295 mOsm/kg (285-295); Potassium 4.4 mmol/L (3.5-5.1); Sodium 141 mmol/L (136-145); Total Bilirubin 0.6 mg/dL (0.15-1.2)
[2020-06-06 18:06] LABS: Add Urine Microscopic? NO
[2020-06-06 18:24] LABS: Bilirubin Urine Neg (Negative); Blood Urine Neg (Negative); Glucose Urine UA Norm (Normal); Ketones Urine Negative (Negative); Leukocyte Esterase Urine Negative (Negative); Nitrate Urine Negative (Negative); Protein Urine Neg (Negative); Urine Appearance Clear (CLEAR); Urine Color Straw (Yellow); Urobilinogen Urine Norm (Negative); pH Urine 5 (5-7)
[2020-06-06] MEDS: iodixanol 320 mg/mL 100mL Btl IV (18:34)
[2020-06-06 19:40] VITALS: BP 147/71; PULSE 60; RESP 17; O2SAT 95
[2020-06-06 19:51] LABS: Troponin 5 2HR 12.87 ng/L (0-10)
[2020-06-06 19:56] LABS: Troponin 5 2HR Delta -1.13 ABS# (0-10)
[2020-06-06] MEDS: FUROsemide 40 mg Tablet PO (20:53)
[2020-06-06] MEDS: meclizine 25 mg tablet PO (20:54)
[2020-06-06] MEDS: aspirin 81 mg Chew Tablet PO (20:57)
[2020-06-06 21:16] VITALS: BP 147/84; PULSE 77; RESP 16; O2SAT 94
[2020-06-06] MEDS: warfarin 2 mg Tablet PO (21:16)
--- NOTE | 2020-06-07 13:43 | DCPLANNER ---
information services manager had message to schedule a follow up appointment for patient with the office of Dr. Moncada. information services manager called the office of Dr. Moncada, spoke with Richy, gave clinic patients information. A follow up appointment was scheduled for Friday, July 03, 2020 at 8:[address] Moncada. Clinic will call patient with appointment information. information services manager also had message to schedule a follow up appointment for patient with Dr. Cummings at [facility]. information services manager faxed patients information to the clinic, will call for appointment information.
--- NOTE | 2020-06-15 13:26 | DCPLANNER ---
Patient has a follow up appointment scheduled for Sunday, June 21, 2020 at 11:[address] Davenport at [facility]. Clinic will call patient with appointment information.
--- NOTE | 2020-07-14 14:27 | DCPLANNER ---
Patient had follow up appointments scheduled with Dr. Ott office, and at [facility] - both appointments were rescheduled.
== END 2020-06-06 21:17 | disposition home or self-care (01) ==
PROVIDERS: Physician Assistant; Emergency Provider Nurse Practitioner Family; PCP Family Medicine
DX: R42 Dizziness and giddiness (principal); I65.21 Occlusion and stenosis of right carotid artery; Z79.01 Long term (current) use of anticoagulants; I48.91 Unspecified atrial fibrillation; I10 Essential (primary) hypertension; Z95.0 Presence of cardiac pacemaker; Z87.891 Personal history of nicotine dependence
CPT/HCPCS: 36415; 70450; 70496; 70498; 71045; 80053; 81003; 83880; 84443; 84484; 85025; 85610; 93005; 99284; J8597; Q9967

== ENCOUNTER → 2020-06-08 11:59 | Outpatient (BNVA) | payer MEDICARE, MEDICAID, SELFPAY | PROVIDERS: PCP Family Medicine; Visit Provider Internal Medicine Cardiovascular Disease | DX: E78.00 Pure hypercholesterolemia, unspecified (principal); E78.5 Hyperlipidemia, unspecified; Z95.2 Presence of prosthetic heart valve; I65.21 Occlusion and stenosis of right carotid artery; R42 Dizziness and giddiness; Z95.0 Presence of cardiac pacemaker; I34.0 Nonrheumatic mitral (valve) insufficiency | CPT/HCPCS: 85610 ==

== ENCOUNTER 2020-06-16 12:05 | Outpatient (CLI) | payer MEDICARE, MEDICAID, SELFPAY ==
--- NOTE | 2020-06-16 12:16 | XR_ITS ---
WS: [id number] PA and lateral chest, 06/16/2020 Clinical Data: Z95.0 - Presence of cardiac pacemaker Comparison: Portable chest, 06/06/2020 Findings: No nodules, masses or effusions are seen. The aortic arch and descending aorta are tortuous . The heart is slightly enlarged. Midline sternotomy sutures and artificial heart valve are seen. The pulmonary vascularity is not increased. No pneumonia or pneumothorax is seen. A permanent pacemaker remains in the same position. XR/XR chest 2V* [id number] Impression: Atherosclerosis and permanent pacemaker.
== END 2020-06-16 12:06 | disposition home or self-care (01) ==
LOC: RAD 12:10
PROVIDERS: PCP Family Medicine; Visit Provider Internal Medicine Cardiovascular Disease
DX: Z95.0 Presence of cardiac pacemaker (principal); I70.90 Unspecified atherosclerosis
CPT/HCPCS: 71046; 80048; 85025; 85610; 86850; 86900; 87635

== ENCOUNTER 2020-06-19 11:10 | Day surgery (SDC) | payer MEDICARE, MEDICAID, SELFPAY ==
[2020-06-19] VITALS (8 sets, daily range): BP systolic 105–161; BP diastolic 62–78; PULSE 59–61; RESP 15–18; TEMP 36.3–37.1; O2SAT 94–96; BMI 27.4
--- NOTE | 2020-06-19 12:31 | W.PM.OPSUD ---
Surgery/Procedure H&P Update DATE OF PROCEDURE: June 19, 2020 DATE H&P PERFORMED: 06/08/20 H&P UPDATE INFORMATION: I have reviewed H&P completed within last 30 days, I have examined patient prior to procedure and No changes to prior documentation PREOP DIAGNOSIS: Atrial lead dislocation PLANNED PROCEDURE: Operation Date: 06/19/20 12:00 Proposed Procedures p Pacemaker Generator Change(Not Applicable) - Phan Steward MD PATIENT REASSESSED PRIOR TO SEDATION, WITH NO CHANGE NOTED: Yes PHYSICAL EXAM: alert, clear to auscultation bilaterally and regular rate & rhythm AIRWAY EVAL/ANESTHESIA PLAN: normal airway, see other exam findings, ASA III, Monitored Anesthesia, Local Anesthesia, Risks, benefits & alternatives of sedation and/or procedure discussed and Patient agrees to continue as planned
--- NOTE | 2020-06-19 14:47 | PM.OP ---
Operative Report Date of procedure: June 19, 2020 Pre-op Diagnosis: Atrial lead dislocation Procedure: PROCEDURE: PACEMAKER lead repositioning PREOPERATIVE DIAGNOSIS: Atrial lead repositioning POSTOPERATIVE DIAGNOSIS: Same as above ESTIMATED BLOOD LOSS: Around 5 milliliters. COMPLICATIONS: None. BRIEF HISTORY: The patient is 74-year-old white female who had a permanent pacemaker implantation for symptomatic bradycardia on 04/03/2020. The patient was found to have a high atrial threshold during routine office followup evaluation. A chest x-ray revealed dislodgment of the atrial lead . For further management of patient's condition atrial lead repositioning was recommended. The risks of bleeding, hematoma, vascular injury, infection and other concomitant complications were explained in detail, which the patient understood well and consented to proceed. PROCEDURES PERFORMED: 1. Atrial lead repositioning The patient brought to the Cardiac Fiberglass Autobody Repairer. The left side of the neck and the subclavian area were cleaned and draped in a sterile fashion. 1% Xylocaine was used for local anesthetic agent. A 2 inch long incision was made just below the previous pacemaker scar. By sharp and blunt dissection, the pacemaker pocket was accessed. The leads were detached from the generator. The adhesions on the leads were dissected out.the atrial lead was repositioned in the atrial appendage. Good pacing and sensing thresholds were obtained. The lead was secured to the endocardium by advancing the helix. The lead was attached to the pectoralis fascia by suturing with 0 Surgilon. The generator was reattached to the leads. The pacemaker pocket was copiously irrigated with vancomycin solution. Complete hemostasis was achieved. The lead was positioned behind the generator and the generator was inserted in an antibiotic pouch. Sponge counts were confirmed. The pacemaker pocket was closed in layers. Skin was approximated using 4-0 Vicryl. Implanted devices Pacemaker Generator: Brand: [place] XT DR MUSTAPHA Koenig. Model number: [id number]. Serial number: [id number] Date of implant: 04/03/2020 IMPLANTED DEVICES: Ventricular Lead: Date of implantation: 04/03/2020 Model number: [id number] Serial number: [id number] Make: Medtronic. Atrial lead Date of implantation: 04/03/2020/repositioned 06/19/2020 Model number: [id number] Serial number: [id number] Make: [employer]tronic. Stimulation Threshold: The ventricular sensing was 5.0 millivolts. Ventricular lead impedance was 595 ohms and the pacing threshold was .4 volts at .5 milliseconds. The atrial sensing was 2.2 millivolts. Atrial lead impedance was 467 ohms and the pacing threshold was .8 volts at 0.5 milliseconds. Through the device, the atrial sensing was 1.9 and the ventricular sensing of 4.5. The pacing threshold was 1.0V at 0.4 ms in the atrium and 0.5 V at 0.4 ms in the ventricle The pacemaker was set for DDDR mode with an upper rate of 130 and a lower rate of 60. A pressure dressing was applied over the pacemaker site. The patient was transferred back to medical floor in stable condition. Sponge counts were correct. Chest x-ray was ordered to confirm the lead positions
[2020-06-19] MEDS: HYDROcodone-acetaminophen 10-325 mg Tablet 1 TAB PO (21:22)
[2020-06-19] MEDS: gabapentin 100 mg Capsule 200 MG PO (21:22)
[2020-06-19] MEDS: donepezil 5 MG Tablet PO (21:23)
[2020-06-19] MEDS: potassium chloride ER 20 mEq Tablet PO (21:23)
[2020-06-20] VITALS: BP 124/77; PULSE 65; RESP 18; TEMP 36.8; O2SAT 95
[2020-06-20] MEDS: sodium chloride 0.9% 1,000 ML 75 ML IV (00:18)
[2020-06-20 04:42] VITALS: BP 135/71; PULSE 60; RESP 18; TEMP 36.6; O2SAT 97
[2020-06-20] MEDS: HYDROcodone-acetaminophen 10-325 mg Tablet 1 TAB PO ×2 (05:22→10:16)
[2020-06-20 06:00] VITALS: PULSE 59
--- NOTE | 2020-06-20 06:00 | ECG_ITS ---
[facility] Test Date: 2020-06-20 Pat Name: Jennifer You Department: Room: 279 Gender: Female Cyber Security Architect: : 1945 Requested By: Phan Steward Order Number: [id number] Yarelis MD: Phan Steward M.D. Measurements Intervals [place] Rate: 60 P: 190 GA: 247 QRS: -21 QRSD: 109 T: -88 QT: 516 QTc: 516 Interpretive Statements ELECTRONIC ATRIAL PACEMAKER MODERATE INTRAVENTRICULAR CONDUCTION DELAY [105+ ms QRS DURATION, 80+ ms Q/S IN V1/V2, NO Q AND 60+ ms R IN I/aVL/V5/V6] ST DEVIATION AND MARKED T-WAVE ABNORMALITY, CONSIDER ANTEROLATERAL ISCHEMIA [-0.5+ mV T WAVE IN I/aVL/V3-V6] ST DEVIATION AND MODERATE T-WAVE ABNORMALITY, CONSIDER INFERIOR ISCHEMIA [-0.1+ mV T WAVE IN II/aVF] Compared to ECG 06/06/2020 18:01:03 Intraventricular conduction delay now present T-wave abnormality now present Possible ischemia now present Ventricular-paced complex(es) or rhythm no longer present Electronically Signed On 06-20-2020 23:58:36 MATRIX SUPERVISOR by Phan Steward M.D. [id number]
--- NOTE | 2020-06-20 06:00 | XRR_ITS ---
PROCEDURE INFORMATION: Exam: XR Chest Exam date and time: 06/20/2020 6:20 AM Age: 74 years old Clinical indication: Device placement; Cardiac pacemaker lead placement or adjustment; Prior surgery; Surgery date: Post-operative (0-2 days); Surgery type: Pacemaker, open heart; Additional info: Post permanent pacemaker placement; Visualize lead tip TECHNIQUE: Imaging protocol: XR of the chest Views: 1 view. COMPARISON: CR XR chest 2V* [id number] 06/16/2020 12:27 PM FINDINGS: Tubes, catheters and devices: A permanent pacemaker appears intact. Lungs: Unremarkable. No consolidation. Pleural spaces: Unremarkable. No pleural effusion. No pneumothorax. Heart/Mediastinum: The cardiac silhouette is enlarged but unchanged. The patient has undergone aortic valve replacement. Bones/joints: Unremarkable. XR/XR chest 1V [id number] IMPRESSION: 1. Stable cardiomegaly. 2. No acute abnormality. 3. Satisfactory appearance of the pacemaker.
[2020-06-20 06:59] VITALS: BP 135/75; PULSE 60; RESP 16; TEMP 36.8; O2SAT 96
[2020-06-20 09:04] LABS: INR 1.44 (0.8-1.2)
[2020-06-20] MEDS: potassium chloride ER 20 mEq Tablet PO (10:14)
[2020-06-20] MEDS: sertraline 50 mg Tablet PO (10:14)
[2020-06-20] MEDS: cyanocobalamin 1,000 mcg Tablet 1000 MCG PO (10:14)
[2020-06-20] MEDS: LORazepam 0.5 mg Tablet PO (10:14)
[2020-06-20] MEDS: aspirin 81 mg EC Tablet PO (10:14)
[2020-06-20] MEDS: FUROsemide 20 mg Tablet 40 MG PO (10:15)
[2020-06-20] MEDS: gabapentin 100 mg Capsule 200 MG PO (10:15)
[2020-06-20] MEDS: spironolactone 25 mg Tablet PO (10:15)
[2020-06-20] MEDS: amiodarone 200 mg Tablet PO (10:15)
[2020-06-20] MEDS: ferrous sulfate EC 325 mg Tablet PO (10:15)
[2020-06-20] MEDS: atorvastatin 40 mg Tablet PO (10:16)
[2020-06-20] MEDS: atorvastatin 40 mg Tablet 20 MG PO (10:16)
[2020-06-20] MEDS: amlodipine 5 mg Tablet 2.5 MG PO ×2 (10:17→10:19)
[2020-06-20] MEDS: levothyroxine 100 mcg Tablet PO (10:20)
[2020-06-20 11:33] VITALS: BP 163/75; PULSE 60; RESP 17; TEMP 36.9; O2SAT 97
--- NOTE | 2020-06-20 11:36 | PC.CHAP ---
Pastoral Care Encounter/Spiritual Assessment Type of Contact [] Declined strand buncher fine wire visit [x] Patient/Family/Request visit [] Outpatient visit [] Follow-up visit [] Physician referral [] Code/Alert [x] Routine visit [] Staff referral [] Actively dying [] Patient sleeping [] Family support [] [] Out of room [] Palliative care [] [x] Receiving care in room [] Pre-surgical visit [] Trauma [] Long length of stay [] ICU visit [] Other: Relational/Emotional Strength [] Patient feels connected with others/family/visitors/staff [] Distress [] Loneliness/isolation [] Abandonment Spirituality of Patient [x] Person of Cecilia [] Attends Holiness of their Cecilia [x] Believes in Prayer [] Reads Bible or Alevism materials [] There are Spiritual issues to be addressed Cardiothoracic Surgeon Interventions [x] Prayer [] Active listening [] Non-anxious presence [] Spiritual/emotional support [] Crisis/trauma care [] Spiritual counseling [] Bereavement support [] Provided bereavement packet [] Provided Bible/devotional materials [] Provided toy/stuffed animal, coloring book to patient or family member [] Provided Communion [] Anointing/[place] [] Salvation [] Completed spiritual assessment [] Other: Impact on Illness or Injury [] Angry [] Fearful [] Anxious [] Often cries [] Exhaustion [] Unable to work [] Unable to attend judaism [] Unable to walk/stand [] Unable to read [] Unable to drive [] Unable to eat/drink [] Unable to sleep [] Unable to be with family [] Patient intubated [] Other: Summary She seemed a bit confused, but cordial and happy. I believe I did her wedding ceremony back about 10-12 years ago. Time spent with patient 5 minutes
[2020-06-20 13:41] VITALS: BP 163/75; PULSE 60; RESP 17; TEMP 36.9; O2SAT 97
== END 2020-06-20 13:40 | disposition home or self-care (01) ==
LOC: CCL 11:13 → MEDSURG 13:28
PROVIDERS: PCP Family Medicine; Visit Provider Internal Medicine Cardiovascular Disease
DX: T82.120A Displacement of cardiac electrode, initial encounter (principal); I48.91 Unspecified atrial fibrillation; I11.0 Hypertensive heart disease with heart failure; I50.9 Heart failure, unspecified; I25.10 Atherosclerotic heart disease of native coronary artery without angina pectoris; Z79.01 Long term (current) use of anticoagulants; E03.9 Hypothyroidism, unspecified; Z87.891 Personal history of nicotine dependence; I48.20 Chronic atrial fibrillation, unspecified; I65.21 Occlusion and stenosis of right carotid artery
CPT/HCPCS: 33226; 36415; 71045; 85610; 93005; 96365; 96366; 97165; C1769; J0690; J2250; J3010; J7030; J7050

== ENCOUNTER → 2020-07-11 14:23 | Outpatient (BNVA) | payer MEDICARE, MEDICAID, SELFPAY | PROVIDERS: PCP Family Medicine; Visit Provider Internal Medicine Cardiovascular Disease | DX: R06.02 Shortness of breath (principal) | CPT/HCPCS: 80048 ==

== ENCOUNTER → 2020-07-14 10:12 | Outpatient (BNVA) | payer MEDICARE, MEDICAID, SELFPAY | PROVIDERS: PCP Family Medicine; Visit Provider Nurse Practitioner | DX: M54.16 Radiculopathy, lumbar region (principal); M47.816 Spondylosis without myelopathy or radiculopathy, lumbar region; M48.061 Spinal stenosis, lumbar region without neurogenic claudication; Z79.891 Long term (current) use of opiate analgesic | CPT/HCPCS: 99213 ==

== ENCOUNTER → 2020-07-27 09:39 | Outpatient (BNVA) | payer MEDICARE, MEDICAID, SELFPAY | PROVIDERS: PCP Family Medicine; Visit Provider Surgery | DX: Z01.812 Encounter for preprocedural laboratory examination (principal); Z20.822 Contact with and (suspected) exposure to COVID-19; N17.9 Acute kidney failure, unspecified; I48.20 Chronic atrial fibrillation, unspecified; Z95.2 Presence of prosthetic heart valve | CPT/HCPCS: 80048; 85610; 87635 ==

== ENCOUNTER → 2020-08-17 10:00 | Outpatient (BNVA) | payer MEDICARE, MEDICAID, SELFPAY | PROVIDERS: PCP Family Medicine; Visit Provider Anesthesiology | DX: M54.16 Radiculopathy, lumbar region (principal); M54.9 Dorsalgia, unspecified; M48.061 Spinal stenosis, lumbar region without neurogenic claudication; M47.816 Spondylosis without myelopathy or radiculopathy, lumbar region; Z79.891 Long term (current) use of opiate analgesic | CPT/HCPCS: 99213 ==

== ENCOUNTER → 2020-09-27 10:02 | Outpatient (BNVA) | payer MEDICARE, MEDICAID, SELFPAY | PROVIDERS: PCP Family Medicine; Visit Provider Anesthesiology | DX: M54.9 Dorsalgia, unspecified (principal); M47.816 Spondylosis without myelopathy or radiculopathy, lumbar region; M54.16 Radiculopathy, lumbar region; M48.061 Spinal stenosis, lumbar region without neurogenic claudication; Z79.891 Long term (current) use of opiate analgesic; Z87.891 Personal history of nicotine dependence | CPT/HCPCS: 99213 ==

== ENCOUNTER → 2020-09-28 15:05 | Outpatient (BNVA) | payer MEDICARE, MEDICAID, SELFPAY | PROVIDERS: PCP Family Medicine; Referring Provider Family Medicine; Visit Provider Orthopaedic Surgery | DX: M51.36 Other intervertebral disc degeneration, lumbar region (principal) | CPT/HCPCS: 72110 ==

== ENCOUNTER → 2020-11-08 12:04 | Day surgery (SDC) | payer MEDICARE, MEDICAID, SELFPAY | PROVIDERS: PCP Family Medicine; Visit Provider Orthopaedic Surgery | DX: Z01.818 Encounter for other preprocedural examination (principal) | CPT/HCPCS: 93005 ==

== ENCOUNTER → 2020-11-09 11:42 | Outpatient (BNVA) | payer MEDICARE, MEDICAID, SELFPAY | PROVIDERS: PCP Family Medicine; Visit Provider Orthopaedic Surgery | DX: Z01.812 Encounter for preprocedural laboratory examination (principal); Z20.822 Contact with and (suspected) exposure to COVID-19 | CPT/HCPCS: 87635 ==

== ENCOUNTER 2020-11-15 07:58 | Day surgery (SDC) | payer MEDICARE, MEDICAID, SELFPAY ==
[2020-11-08 11:46] VITALS: BMI 26.8
--- NOTE | 2020-11-08 12:04 | ECG_ITS ---
[facility] Test Date: 2020-11-08 Pat Name: Jennifer You Department: Room: Gender: Female Manager Of Clinical: : 1945 Requested By: Jeffry Benitez Order Number: [id number] Yarelis MD: Phan Steward M.D. Measurements Intervals [place] Rate: 61 P: 16 DE: 113 QRS: -6 QRSD: 105 T: 40 QT: 473 QTc: 477 Interpretive Statements SINUS RHYTHM WITH SHORT DE INTERVAL INCOMPLETE RIGHT BUNDLE BRANCH BLOCK [90+ ms QRS DURATION, TERMINAL R IN V1/V2, 40+ ms S IN I/aVL/V4/V5/V6] SEPTAL MYOCARDIAL INFARCTION [40+ ms Q WAVE IN V1/V2], PROBABLY OLD Compared to ECG 06/20/2020 09:02:38 Short DE interval now present Incomplete right bundle-branch block now present Myocardial infarct finding now present Atrial-paced complex(es) or rhythm no longer present Intraventricular conduction delay no longer present T-wave abnormality no longer present Possible ischemia no longer present Electronically Signed On 11-09-2020 14:45:19 CDT by Phan Steward M.D. [id number]
--- NOTE | 2020-11-08 13:56 | ANES.PREANE2 ---
Pre-Anesthetic Assessment Pre-Anesthetic Assessment: Height/Weight: Height 1.65 m Weight 73.028 kg Preop Diagnosis: Atrial lead dislocation Proposed Procedure: Operation Date: 11/15/20 10:45 Proposed Procedures p lumbar decompression L3/4 L4/5 L5/s1 57441 71250 m48.062(Not Applicable) - Edward H Sherrie, DO Was Beta Patrick taken within 24 hours: N/A Was Clonidine taken within 24 hours: N/A Social: Social History: No alcohol and No tobacco Exam: Pre-Anes Outpt Exam: alert, oriented x 3, clear to auscultation bilaterally and regular rate & rhythm Airway: Submandibular: WNL Cervical ROM: WNL MP: 2 CV/HEM: CV/HEM: Afib, Anemia, Arrythmia, HTN, Murmur (MR) and PVD Comments: AVR, anticoagulation with coumadin, pacemaker : : Chronic renal Insufficiency Metabolic: Metabolic: Thyroid Musc/skel: Musc/skel: Lower Back Pain Anesthetic Plan: ASA status: 3 Anesthesia: General Risk of > 500 ml blood loss (7ml/kg in children): No PFSH Anesthesia PFSH: Medical History Arthritis, lumbar spine Atrial fibrillation Chronic atrial fibrillation Patient has history of intermittent atrial fibrillation. Chronic lumbar radiculopathy Depression Encounter for long-term opiate analgesic use History of common carotid artery stent placement Clinically stable Hypercholesterolemia Hypertension Hypothyroidism Pacemaker Spinal stenosis, lumbar region without neurogenic claudication Surgical History Aortic valve replaced 2000 H/O aortic valve replacement H/O section History of appendectomy History of bilateral carotid endarterectomy History of carpal tunnel surgery of left wrist History of carpal tunnel surgery of right wrist History of permanent cardiac pacemaker placement Family History Mother Dementia Father CAD (coronary artery disease) Denies family history of Diabetes Clotting disorder Chronic kidney disease (CKD) Suicide Anesthesia complication Bleeding disorder Lung disease Cancer Stroke Social History (System 10/17/20 @ 12:54 by Elizabeth Red) Smoking and tobacco status: former smoker Second hand smoke exposure: No Alcohol intake: never Lives independently: Yes Household members: significant other History of recent travel: No Data Anesthesia Cardiac Studies: Cardiac Event Monitor 03/21/20
[2020-11-15 08:28] VITALS: BP 164/78; PULSE 61; RESP 16; TEMP 36.9; O2SAT 97
--- NOTE | 2020-11-15 08:52 | P.ANESUD_ITS ---
Pre-Anesthetic Update Pre-Anesthetic Assessment: Date of Surgery/Procedure: 11/15/20 Preop Jazmine gnosis: lumbar stenosis Proposed Procedure: Operation Date: 11/15/20 09:40 Proposed Procedures p lumbar decompression L3/4 L4/5 L5/s1 17018 06769 m48.062(Not Applicable) - Edward Balderas, DO Any changes to Pre-Anesthetic Assessment?: No Last Intake: Intake Last Liquid Date 11/14/20 Last Liquid Time 00:00 Last Solid Date 11/14/20 Last Solid Time 18:00 Vitals: Temperature 98.4 F 11/15/20 08:28 Temperature Source Temporal Artery S can 11/15/20 08:28 Pulse Rate 61 11/15/20 08:28 Respiratory Rate 16 11/15/20 08:28 Blood Pressure 164/78 11/15/20 08:28 Blood Pressure Tuyet n 106 11/15/20 08:28 Pulse Oximetry 97 11/15/20 08:28 Oxygen Delivery Me thod 11/15/20 08:28 Exam: Pre-Anes Outpt Exam: alert, oriented x 3, clear to auscultation bilaterally and regular rate & rhythm Other Pertinent Information: Other Pertinent Information: patient took plavix yesterday Cardiac Studies: Cardiac Event Monitor 03/21/20
--- NOTE | 2020-11-15 08:58 | PC.NURSE ---
pt arrived for pre op for spinal decompression procedure during pre op evaluation and coverage of meds it was discovered that the patient was not advised to stop the plavix. determined that the risk was to great to proceed. surgery was canceled and to be rescheduled at a later time
--- NOTE | 2020-11-15 16:22 | ANE.PACU2 ---
Inpatient post-anesthesia follow up: Airway intact: Yes Vital signs: Temperature 98.4 F Pulse Rate 61 Respiratory Rate 16 Blood Pressure 164/78 Pulse Oximetry 97 Oxygen Delivery Me thod Room Air Oxygen Flow Rate Fraction of Inspir ed Oxygen Hydration adequate: Yes Nausea and vomiting: No Pain level: 2 Mental status: Baseline
== END 2020-11-15 09:19 | disposition home or self-care (01) ==
PROVIDERS: PCP Family Medicine; Visit Provider Orthopaedic Surgery
PROC: (CPT 63005; principal; 2020-11-15 09:30)
DX: M48.062 Spinal stenosis, lumbar region with neurogenic claudication (principal); Z53.8 Procedure and treatment not carried out for other reasons
CPT/HCPCS: J2250; J2704; J2710; J3010; J3490

== ENCOUNTER → 2020-11-22 13:17 | Outpatient (BNVA) | payer MEDICARE, MEDICAID, SELFPAY | PROVIDERS: PCP Family Medicine; Visit Provider Anesthesiology | DX: M54.16 Radiculopathy, lumbar region (principal); M48.062 Spinal stenosis, lumbar region with neurogenic claudication; M47.816 Spondylosis without myelopathy or radiculopathy, lumbar region; Z79.891 Long term (current) use of opiate analgesic; Z87.891 Personal history of nicotine dependence | CPT/HCPCS: 99213 ==

== ENCOUNTER → 2020-12-07 12:00 | Outpatient (BNVA) | payer MEDICARE, MEDICAID, SELFPAY | PROVIDERS: PCP Family Medicine; Visit Provider Internal Medicine Cardiovascular Disease | DX: I48.20 Chronic atrial fibrillation, unspecified (principal); Z79.01 Long term (current) use of anticoagulants; Z95.2 Presence of prosthetic heart valve | CPT/HCPCS: 85610 ==

== ENCOUNTER → 2021-01-10 12:50 | Outpatient (BNVA) | payer MEDICARE, MEDICAID, SELFPAY | PROVIDERS: PCP Family Medicine; Visit Provider Orthopaedic Surgery | DX: Z01.818 Encounter for other preprocedural examination (principal); Z20.822 Contact with and (suspected) exposure to COVID-19 | CPT/HCPCS: 87635 ==

== ENCOUNTER 2021-01-15 11:38 | Day surgery (SDC) | payer MEDICARE, MEDICAID, SELFPAY ==
[2021-01-12 14:05] VITALS: BMI 25.0
[2021-01-15] VITALS (9 sets, daily range): BP systolic 106–155; BP diastolic 48–75; PULSE 73–79; RESP 14–22; TEMP 36.6–36.8; O2SAT 95–100
--- NOTE | 2021-01-15 | XR_ITS ---
WS: [id number] XR lumbar spine 1V [id number] REASON FOR EXAM: laminectomy with partial facetectomies FINDINGS: Surgical appliance overlies the lumbar spine at the L4-L5 level then the L3-L4 level. XR/XR lumbar spine 1V 43728 IMPRESSION: Lumbar level localization in surgery.
--- NOTE | 2021-01-15 | SCC_ITS ---
Procedure Done: 1. Bilateral L3/4 laminectomy with partial facetectomies 2. Bilateral L4/5 laminectomy with partial facetectomies 3. Bilateral L5/S1 laminectomy with partial facetectomies 24.8 seconds of fluoroscopic guidance, for a cumulative dose of 7.12 mGy, was provided to Dr. Balderas by the radiology department. C-arm images of the lumbar spine were saved for the patient's permanent record. [facility]
--- NOTE | 2021-01-15 15:47 | P.HP_ITS ---
Providers/Chief Complaint Primary Care Provider: Ruy Palacio MD Chief Complaint: lumbar spine History of Present Illness Jennifer You is a 75 year old female low back pain. She describes a catching sensation in her back. She is unable to have an MRI due to pacemaker placement. Chief Complaint: low back pain Onset: years Duration: years Characteristics: aching, constant,sharp, stabbing, burning, cramping Severity: 11/21 Location: low back pain Radiating symptoms: bilateral posterior thigh with the right being worse. Aggravating factors: cooking and cleaning, walking long distances Alleviating factors: hydrocodone with relief Neuro deficits: [] denies numbness, tingling, weakness, incontinence of bowel/bladder, saddle anesthesia. Prior tx: Pain managemanet oral medications. physical therapy with some relief. Review of Systems Narrative: General ROS: negative for weight changes, fever ENT ROS: negative for nasal congestion, drainage or bleeding, sore throat, dysphagia or ear pain Eyes: PERRL Hematological and Lymphatic ROS: negative for swollen glands or abnormal bleeding Endocrine ROS: negative for polyuria/polydpsia or new changes in weight Respiratory ROS: negative for cough, shortness of breath, or wheezing Cardiovascular ROS: negative for chest pain or dyspnea on exertion Gastrointestinal ROS: negative for reflux, abdominal pain, change in bowel habits, or black or bloody stools Musculoskeletal ROS: negative for back pain, neck pain, or joint pain or swelling except for current problem Neurological ROS: negative for TIA or stoke symptoms Skin: no rashes Medications/Allergies Home Medications Medication Instructions Recorded Confirmed Last Taken Type lorazepam 1 mg PO BID PRN 04/15/19 01/15/21 01/15/21 11:00 History potassium chloride 20 meq PO BID@04/15/19 01/15/21 01/15/21 08:00 History nitroglycerin [Nitrostat] 0.4 mg SUBLINGUAL Q5M PRN #25 tab 04/16/19 01/12/21 Unknown Rx donepezil 5 mg PO BEDTIME@09/16/19 01/15/21 01/15/21 08:00 History ferrous sulfate 325 mg PO DAILY@10 03/27/20 01/12/21 01/12/21 History cyanocobalamin (vitamin B-12) 1,000 mcg PO DAILY@99906/06/20 01/15/21 01/15/21 08:00 History furosemide [Lasix] 40 mg PO DAILY@1000 06/06/20 01/15/21 01/15/21 08:00 History sertraline [Zoloft] 50 mg PO DAILY@1000 06/06/20 01/15/21 1 Day Ago History ~01/14/21 clopidogrel 75 mg tablet 75 mg PO DAILY 07/14/20 01/12/21 01/10/21 History atorvastatin 40 mg tablet See Rx Instructions .ROUTE 10/02/20 01/15/21 01/15/21 08:00 Rx .COMPLEX #90 tablet amlodipine 5 mg tablet 5 mg PO DAILY #90 tab 10/11/20 01/15/21 01/15/21 08:00 Rx spironolactone 25 mg tablet See Rx Instructions .ROUTE 11/01/20 01/15/21 01/15/21 08:00 Rx .COMPLEX #90 tablet warfarin 3 mg tablet 3 mg PO DIRECTED #90 tab 11/02/20 01/12/21 01/10/21 Rx levothyroxine 100 mcg PO DAILY 11/08/20 01/15/21 01/15/21 08:00 History hydrocodone 10 mg-acetaminophen 1 tab PO .5 times daily PRN 30 11/22/20 01/15/21 01/15/21 08:00 Rx 325 mg tablet Days #150 tab warfarin 1 mg tablet 1 mg PO DIRECTED tab 12/07/20 01/12/21 01/10/21 History amiodarone 200 mg tablet See Rx Instructions .ROUTE 12/29/20 01/15/21 01/15/21 08:00 Rx .COMPLEX #90 tablet warfarin 2 mg tablet See Rx Instructions .ROUTE 12/29/20 01/12/21 01/10/21 Rx .COMPLEX #90 tab enoxaparin 60 mg/0.6 mL 60 mg SUBCUT Q12H #3.6 ml 01/03/21 01/15/21 01/13/21 20:00 Rx subcutaneous syringe Allergies Allergy/AdvReac Type Severity Reaction Status Date / Time No Known Allergies Allergy Verified 11/22/20 14:32 PFSH Acute PFSH: Medical History Arthritis, lumbar spine Atrial fibrillation Chronic atrial fibrillation Patient has history of intermittent atrial fibrillation. Chronic lumbar radiculopathy Depression Encounter for long-term opiate analgesic use History of common carotid artery stent placement Clinically stable Hypercholesterolemia Hypertension Hypothyroidism Pacemaker Spinal stenosis, lumbar region without neurogenic claudication Surgical History Aortic valve replaced 2000 H/O aortic valve replacement H/O section History of appendectomy History of bilateral carotid endarterectomy History of carpal tunnel surgery of left wrist History of carpal tunnel surgery of right wrist History of permanent cardiac pacemaker placement Family History Mother Dementia Father CAD (coronary artery disease) Denies family history of Diabetes Clotting disorder Chronic kidney disease (CKD) Suicide Anesthesia complication Bleeding disorder Lung disease Cancer Stroke Social History (Updated 11/22/20 @ 14:35 by Masha Bergeron LPN) Smoking and tobacco status: former smoker Second hand smoke exposure: No Alcohol intake: never Lives independently: Yes Household members: significant other History of recent travel: No Vitals/I&O/Wt Last Vital Signs Temp 98.1 F 01/15/21 12:01 Pulse 74 01/15/21 12:01 Resp 18 01/15/21 12:01 BP 106/70 01/15/21 12:01 Pulse Ox 95 01/15/21 12:01 Physical Exam Narrative: EXAM NARRATIVE: CONSTITUTIONAL: The patient is a normal appearing [] in no apparent distress. GENERAL: Patient in no acute distress. CARDIAC: Regular rate and rhythm. CHEST: Normal inspiratory effort, normal respiratory rate. ABDOMEN: Soft and nontender. SKIN: Clear, warm and intact. NEURO?PSYCH: The patient is alert and oriented to person, place and time. Sensorv /SILT Motor StrengthShoulder abduction C5 5/5Wrist extension C6 5/5Elbow extension C7 5/5Hand Graphotype Operator C8 5/5Finger abduction T15/5 Radial/ Ulnar/ Median n intact LowerSensory (SILT)Motor StrengthHin flexion L2/3Ant/inner thigh 5/5Hip adduction L2/3 5/5Knee extension L4 Lat thigh, 5/5Toe dorsiflexion L5 5/5Ankle dorsiflexion L5/ J57Audhvip flexion S1 5/5 DTRBleeps 2+Triceps 2+Brachioradialis 2+Patellar 2+Achilles 2+ MUSCULOSKELETAL: [] UPPEREXTREMITIES: The patient had full active ROM in fingers, wrist, elbow, and shoulder. The patient demonstrated ability to fully flex/extend/abduct/adduct fingers, make ok sign, cross 2nd/3rd digits, extend 1st digit fully.. Radial pulse 2+, CR<2 seconds. LOWER EXTREMITIES: Pt has full, active ROM of toes, ankle, knee, and hip. Dorsalis pedis/posterior tibialis pulses 2+, CR<2 seconds. SPINE: Skin warm, dry, intact. A&P Assessment and plan (1) Lumbar stenosis with neurogenic claudication: Patient has severe lumbar stenosis with a spondylolisthesis at L4-5. She also has stenosis at L3-4 and L4-5 S1. At this point I discussed treatment options with her including mill invasive decompressions versus open fusion of the L4-5 decompression of L3-4 and L5-S1. This point because of her heart condition I elected to do the small surgery which would be a millimeter base of decompressions at L3-4 L4-5 L5-S1 standing on left side with bilateral decompressions. I feel that if she did need further surgery with a fusion we could always go back in and do that however with her heart issues this would probably be a bigger surgery and I feel that she would get pretty good relief with just minimally invasive decompressions. Risks and benefits of surgery explained to the patient which included bleeding infection scar pain damage blood vessels nerves risk for surgery and anesthesia risk. Patient needs to get clearance from her theoretical physics teacher prior to surgery. Status: Acute Attestations Medical Necessity Statement*: failed conservative tx Coding Level of Care Code Acute Equipment Service Technician for [facility] Fwd Diagnoses Lumbar stenosis with neurogenic claudication M48.062
[2021-01-15] MEDS: HYDROmorphone 1 mg/mL INJ 1 mL 0.5 MG IVP (16:30)
--- NOTE | 2021-01-15 16:34 | ANES.PREANE2 ---
Pre-Anesthetic Assessment Pre-Anesthetic Assessment: Height/Weight: Height 1.65 m Weight 68.039 kg Temp Pulse Resp BP Pulse Ox 98.1 F 74 18 106/70 95 01/15/21 12:01 01/15/21 12:01 01/15/21 12:01 01/15/21 12:01 01/15/21 12:01 Preop Diagnosis: lumbar stenosis Proposed Procedure: Operation Date: 01/15/21 13:20 Proposed Procedures p Lumbar Spine Decompression L3/4 L4/5 L5/S1 26421 80520 M48.062(Not Applicable) - Edward Balderas, DO Was Beta Patrick taken within 24 hours: N/A Was Clonidine taken within 24 hours: N/A Last intake: Intake Last Liquid Date 01/15/21 Last Liquid Time 23:30 Last Solid Date 01/14/21 Last Solid Time 20:00 Social: Social History: No alcohol and No tobacco Exam: Pre-Anes Outpt Exam: alert, oriented x 3, clear to auscultation bilaterally and regular rate & rhythm Airway: Cervical ROM: WNL MP: 2 CV/HEM: CV/HEM: Afib, Anemia, CAD, HTN, Murmur (MR) and PVD Comments: Pacemaker, anticoagulation, AVR : : Chronic renal Insufficiency Metabolic: Metabolic: Thyroid Musc/skel: Musc/skel: Lower Back Pain Anesthetic Plan: ASA status: 3 Anesthesia: General Risk of > 500 ml blood loss (7ml/kg in children): No PFSH Anesthesia PFSH: Medical History Arthritis, lumbar spine Atrial fibrillation Chronic atrial fibrillation Patient has history of intermittent atrial fibrillation. Chronic lumbar radiculopathy Depression Encounter for long-term opiate analgesic use History of common carotid artery stent placement Clinically stable Hypercholesterolemia Hypertension Hypothyroidism Pacemaker Spinal stenosis, lumbar region without neurogenic claudication Surgical History Aortic valve replaced 2000 H/O aortic valve replacement H/O section History of appendectomy History of bilateral carotid endarterectomy History of carpal tunnel surgery of left wrist History of carpal tunnel surgery of right wrist History of permanent cardiac pacemaker placement Family History Mother Dementia Father CAD (coronary artery disease) Denies family history of Diabetes Clotting disorder Chronic kidney disease (CKD) Suicide Anesthesia complication Bleeding disorder Lung disease Cancer Stroke Social History (Updated 11/22/20 @ 14:35 by Masha Bergeron LPN) Smoking and tobacco status: former smoker Second hand smoke exposure: No Alcohol intake: never Lives independently: Yes Household members: significant other History of recent travel: No Data Anesthesia Cardiac Studies: Cardiac Event Monitor 03/21/20
[2021-01-15] MEDS: sodium chloride 0.9% 1,000 ML 30 ML IV (16:39)
--- NOTE | 2021-01-15 20:44 | P.OP_ITS ---
Operative Report Date of procedure: January 15, 2021 Pre-op Diagnosis: lumbar stenosis with neurogenic claudication Post-op diagnosis: same Procedure Done: 1. Bilateral L3/4 laminectomy with partial facetectomies 2. Bilateral L4/5 laminectomy with partial facetectomies 3. Bilateral L5/S1 laminectomy with partial facetectomies Surgeon: Edward Balderas Motor Runner: Javed Angelo Motor Runner: Javed SHAFER was needed for His expertise under the microscope in using suction retraction. He also help position the patient on the table he also helped with closure of the wound. And getting the patient off the table. Anesthesia: General Estimated blood loss (mL): 20 Condition: stable Disposition: PACU Procedure: 1. Bilateral L3/4 laminectomy with partial facetectomies 2. Bilateral L4/5 laminectomy with partial facetectomies 3. Bilateral L5/S1 laminectomy with partial facetectomies Patient is brought to the operative suite. After undergoing anesthesia they are placed in the supine position. All areas of impingement are well padded. Patient is then prepped and draped in the normal sterile fashion. A skin incision is made over the L3/4 level. This is confirmed under c-arm guidance. A series of dilators are passed and the tubular retractor is docked on the L3 lamina. A bovie is used to clear the soft tissue off the lamina and the L 3/4 facet joint. A high speed delmer is then used to perform the laminectomy and take down the medial aspect of the L 3/4 facet joint. A kerrison rongeure was then used to take down the remaining lamina and smooth the edged of the laminectomy up to the point where the ligamentum flavum attaches. Attention was then brought to the medial aspect of the facet joint. The remaining medial aspect of the superior and inferior aspect of the facet joint were taken down with the kerrison from the pedicle of L3 to L 4. The facet joint had significant hypertrophy. Attention was then brought to the Ligamentum Flavum. The ligament was taken down from the lamina of L3 to L4 and out medially to the remaining facet joint. The ligament was thickened. The dura was then exposed. The dura was in good repair. The L3 nerve was then traced with a curette out the L3/4 foramen and found to be adequately decompressed. The L4 nerve was traced with a curette around the L4 pedicle. The lateral recess was opened with a kerrison helping to further decompress the L4 nerve. The tubular retractor was then tilted to the contralateral side. The bovie was used to take down the soft tissue on the spinous process. The high speed delmer was used to take down the spinous process and then the contralateral lamina of L3. The kerrison rongeur was used to take down the remaining lamina to the point where the ligamentum flavum attached and the ligamentum flavum was taken down from L3 to L4. The kerrison rongeur was then used to reach across and take down the medial aspect of the contralateral L3/4 facet joint.The currete was used to trace the contralateral L3 nerve out the L3/4 foramen to make sure it was decompressed adequatesly and the L4 was traced around the L4 pedicle. The lateral recess was opened further with the kerrison to ensure the L4 is adequately decompressed. Wound is then irrigated copiously with saline and surgiflo is used to stop any bleeding. The tubular retractor is removed and A skin incision is made over the L4/5 level. This is confirmed under c-arm guidance. A series of dilators are passed and the tubular retractor is docked on the L4 lamina. A bovie is used to clear the soft tissue off the lamina and the L 4/5 facet joint. A high speed delmer is then used to perform the laminectomy and take down the medial aspect of the L 4/5 facet joint. A kerrison rongeure was then used to take down the remaining lamina and smooth the edged of the laminectomy up to the point where the ligamentum flavum attaches. Attention was then brought to the medial aspect of the facet joint. The remaining medial aspect of the superior and inferior aspect of the facet joint were taken down with the kerrison from the pedicle of L4 to L 5. The facet joint had significant hypertrophy. Attention was then brought to the Ligamentum Flavum. The ligament was taken down from the lamina of L4 to L5 and out medially to the remaining facet joint. The ligament was thick. The dura was then exposed. The dura was in good repair. The L4 nerve was then traced with a curette out the L4/5 foramen and found to be adequately decompressed. The L5 nerve was traced with a curette around the L5 pedicle. The lateral recess was opened with a kerrison helping to further decompress the L5 nerve. The tubular retractor was then tilted to the contralateral side. The bovie was used to take down the soft tissue on the spinous process. The high speed delmer was used to take down the spinous process and then the contralateral lamina of L4. The kerrison rongeur was used to take down the remaining lamina to the point where the ligamentum flavum attached and the ligamentum flavum was taken down from L4 to L5. The kerrison rongeur was then used to reach across and take down the medial aspect of the contralateral L4/5 facet joint.The currete was used to trace the contralateral L4 nerve out the L4/5 foramen to make sure it was decompressed adequatesly and the L5 was traced around the L5 pedicle. The lateral recess was opened further with the kerrison to ensure the L5 is adequately decompressed. Wound is then irrigated copiously with saline and surgiflo is used to stop any bleeding. The tubular retractor is removed and A skin incision is made over the L5/S1 level. This is confirmed under c-arm guidance. A series of dilators are passed and the tubular retractor is docked on the L5 lamina. A bovie is used to clear the soft tissue off the lamina and the L 5/S1 facet joint. A high speed delmer is then used to perform the laminectomy and take down the medial aspect of the L 5/S1 facet joint. A kerrison rongeure was then used to take down the remaining lamina and smooth the edged of the laminectomy up to the point where the ligamentum flavum attaches. Attention was then brought to the medial aspect of the facet joint. The remaining medial aspect of the superior and inferior aspect of the facet joint were taken down with the kerrison from the pedicle of L5 to S1. The facet joint had significant hypertrophy. Attention was then brought to the Ligamentum Flavum. The ligament was taken down from the lamina of L5 to S1 and out medially to the remaining facet joint. The ligament was thick. The dura was then exposed. The dura was in good repair. The L5 nerve was then traced with a curette out the L5/S1 foramen and found to be adequately decompressed. The S1 nerve was traced with a curette around the S1 pedicle. The lateral recess was opened with a kerrison helping to further decompress the S1 nerve. The tubular retractor was then tilted to the contralateral side. The bovie was used to take down the soft tissue on the spinous process. The high speed delmer was used to take down the spinous process and then the contralateral lamina of L5. The kerrison rongeur was used to take down the remaining lamina to the po int where the ligamentum flavum attached and the ligamentum flavum was taken down from L5 to S1. The kerrison rongeur was then used to reach across and take down the medial aspect of the contralateral L5/S1 facet joint.The currete was used to trace the contralateral L5 nerve out the L5/S1 foramen to make sure it was decompressed adequatesly and the S1 was traced around the S1 pedicle. The lateral recess was opened further with the kerrison to ensure the S1 is adequately decompressed. Wound is then irrigated copiously with saline and surgiflo is used to stop any bleeding. The tubular retractor is removed and the wound is closed with vicryl and monocryl suture. Glue is then used to protect the wound. A sterile dressing is then placed. Patient was then placed in the supine position and transferred to the PACU in stable condition.
--- NOTE | 2021-01-15 20:58 | SUR.PHASEI ---
2046 patient to pacu from or at this time. rr even and unlabored. no distress at this time. dressing to lower back, cdi.
--- NOTE | 2021-01-15 21:32 | SUR.PHASEI ---
2111 patient to ops at this time. denies pain. tolerating ice chips.
--- NOTE | 2021-01-16 00:53 | ANE.PACU2 ---
Inpatient post-anesthesia follow up: Airway intact: Yes Vital signs: Temperature 98 F Pulse Rate 75 Respiratory Rate 16 Blood Pressure 148/62 Pulse Oximetry 97 Oxygen Delivery Me thod Room Air Oxygen Flow Rate 6 Fraction of Inspir ed Oxygen Hydration adequate: Yes Nausea and vomiting: No Pain level: 4 Mental status: Baseline
== END 2021-01-15 21:51 | disposition home or self-care (01) ==
PROVIDERS: PCP Family Medicine; Visit Provider Orthopaedic Surgery
PROC: (CPT 63005; principal; 2021-01-15 13:10)
DX: M48.062 Spinal stenosis, lumbar region with neurogenic claudication (principal); I25.10 Atherosclerotic heart disease of native coronary artery without angina pectoris; I10 Essential (primary) hypertension; Z95.0 Presence of cardiac pacemaker; I48.91 Unspecified atrial fibrillation; F32.9 Major depressive disorder, single episode, unspecified; E78.00 Pure hypercholesterolemia, unspecified; E03.9 Hypothyroidism, unspecified; Z82.49 Family history of ischemic heart disease and other diseases of the circulatory system; Z87.891 Personal history of nicotine dependence; Z79.01 Long term (current) use of anticoagulants
CPT/HCPCS: 63047; 63048 ×2; 72020; 76000; J0690; J1100; J1170; J2405; J2704; J2710; J3010; J3490; J7030

== ENCOUNTER 2021-04-09 12:29 | Outpatient (RCR) | payer MEDICARE, MEDICAID, SELFPAY | END 2021-04-13 23:59 | disposition home or self-care (01) | LOC: SPT 12:29 | PROVIDERS: PCP Family Medicine; Referring Provider Physician Assistant; Visit Provider Physician Assistant | DX: Z47.89 Encounter for other orthopedic aftercare (principal) | CPT/HCPCS: 97161 ==

== ENCOUNTER 2021-04-14 06:00 | Outpatient (RCR) | payer MEDICARE, MEDICAID, SELFPAY | END 2021-05-14 23:59 | disposition home or self-care (01) | LOC: SPT 06:00 | PROVIDERS: PCP Family Medicine; Referring Provider Physician Assistant; Visit Provider Physician Assistant | DX: Z47.89 Encounter for other orthopedic aftercare (principal) | CPT/HCPCS: 97110; 97113 ==

== ENCOUNTER 2021-04-20 14:24 | Outpatient (CLI) | payer MEDICARE, MEDICAID, SELFPAY ==
--- NOTE | 2021-04-20 14:31 | USCV_ITS ---
Jennifer You Age: 75 Gender: F : 1945 Exam Date: 04/20/2021 14:43 Ordering Phys: Jero Davenport MD Technologist: Danay Velazco Exam Location: [facility] – [place] Indication: RECHECK ON STENTS BILATERALLY Risk Factors: Previous Vascular Surgery: GABY STENTS Right Brachial BP: / Left Brachial BP: / Right Left Velocity (cm/s) Spectral Plaque Velocity (cm/s) Spectral Plaque Syst/Diast Broadening Syst/Diast Broadening 81.60/ 17.60 Prox CCA 46.90 / 20.90 69.20/ 27.90 Mid CCA 57.40 / 17.90 79.40/ 22.20 Distal CCA 38.20 / 13.00 153.20/43.00 Prox ICA 198.60/ 62.10 147.90/26.90 Mid ICA 198.60/ 72.00 134.90/32.90 Distal ICA 121.50/ 32.10 93.80 ECA 322.80 2.21 ICA/CCA 3.46 Antegrade Vertebral Antegrade 128.6/ 18.80 cm/s 165.0/ 34.40 cm/s 0 0 Bi Subclavian Tri 103.7 176.5 0 0 FINDINGS comparison 09/16/19. Angioplasty since the prior exam CONCLUSIONS Right ICA stenosis 50-69%. Moderate atheromatous plaque right carotid bulb/ICA. Left ICA stenosis 50-69%. Moderate atheromatous plaque left carotid bulb/ICA. Improved velocities in the distal Left ICA today Normal antegrade Doppler flow noted in the right vertebral artery. Normal antegrade Doppler flow noted in the left vertebral artery. Imtiaz Wright MD (Electronically Signed) Final Date: 23 April 2021 09:12 S
== END 2021-04-20 14:25 | disposition home or self-care (01) ==
LOC: RAD 14:26
PROVIDERS: PCP Family Medicine; Visit Provider Surgery
DX: I65.23 Occlusion and stenosis of bilateral carotid arteries (principal)
CPT/HCPCS: 93880

== ENCOUNTER 2021-05-09 10:05 | Emergency (ER) | payer MEDICARE, MEDICAID, SELFPAY ==
--- NOTE | 2021-05-09 10:19 | ECG_ITS ---
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 Measurements Intervals [place] Rate: 115 P: HI: QRS: -12 QRSD: 94 T: 87 QT: 321 QTc: 446 Interpretive Statements ATRIAL FIBRILLATION WITH RAPID VENTRICULAR RESPONSE INCOMPLETE RIGHT BUNDLE BRANCH BLOCK [90+ ms QRS DURATION, TERMINAL R IN V1/V2, 40+ ms S IN I/aVL/V4/V5/V6] SEPTAL MYOCARDIAL INFARCTION , OF INDETERMINATE AGE [40+ ms Q WAVE IN V1/V2] Compared to ECG 11/08/2020 12:24:58 Sinus rhythm no longer present Short HI interval no longer present Myocardial infarct finding still present Electronically Signed On 05-10-2021 0:00:58 SHALE PROCESSING TECHNICIAN by Phan Steward M.D. [id number]
--- NOTE | 2021-05-09 10:19 | XR_ITS ---
WS: [id number] Portable AP semiupright chest, 05/09/2021 Clinical Data: chest pain Comparison: Portable chest, 06/20/2020. Findings: No nodules, masses or effusions are seen. The heart is normal. The pulmonary vascularity is not increased. No pneumonia or pneumothorax is seen. The aortic arch and descending thoracic aorta s how tortuosity. Midline sternotomy sutures are present and there is an aortic valve replacement. The permanent pacemaker remains in the same position. XR/XR chest 1V portable [id number] Impression: Permanent pacemaker and atherosclerosis.
[2021-05-09 10:26] VITALS: BP 111/75; PULSE 118; RESP 18; TEMP 36.7; O2SAT 99; BMI 27.4
--- NOTE | 2021-05-09 11:02 | ED_ITS ---
HPI - Chest Pain General: Chief Complaint: Chest Pain Stated Complaint: HAS PACEMAKER FEELS LIKE HEART BEATING TOO FAST Time Seen by Provider: 05/09/21 10:24 Source: patient History of Present Illness: 75-year-old female presents emergency room with complaint of rapid heart rate. She has a known history of atrial fibrillation she also has a mechanical heart valve and is on warfarin. She is taking all her medications today. She is not on any negative inotropes. She has some mild chest discomfort as a palpitation like thumping sensation in her chest. She denies any shortness of breath just generally not feeling well it began yesterday progressively worsened until she arrived here today. MD complaint: chest pain Pertinent past history: other (Atrial fibrillation) Onset (ago): hour(s) Onset: during rest Pain radiation: none Severity: moderate Quality: other (Palpitations) Relieving factors: nothing Exacerbating factors: nothing Associated symptoms: Reports palpitations; Deny abdominal pain, diaphoresis, dyspnea, fever(s), leg edema, nausea, sense of impending doom, syncope or vomiting Review of Systems Const: Denies: fever(s) or diaphoresis Card: Reports: palpitations, irregular heart rhythm and lightheadedness; Denies: syncope Resp: Denies: dyspnea GI: Denies: abdominal pain, nausea or vomiting : Denies: difficulty voiding, dysuria, urinary frequency or urinary urgency Skin/Breast: Denies: rash or pruritus PFSH ED PFSH: Medical History Arthritis, lumbar spine Atrial fibrillation Chronic atrial fibrillation Patient has history of intermittent atrial fibrillation. Chronic lumbar radiculopathy Depression Encounter for long-term opiate analgesic use History of common carotid artery stent placement Clinically stable Hypercholesterolemia Hypertension Hypothyroidism Pacemaker Spinal stenosis, lumbar region without neurogenic claudication Surgical History Aortic valve replaced 2000 H/O aortic valve replacement H/O section History of appendectomy History of bilateral carotid endarterectomy History of carpal tunnel surgery of left wrist History of carpal tunnel surgery of right wrist History of permanent cardiac pacemaker placement Family History Mother Dementia Father CAD (coronary artery disease) Denies family history of Diabetes Clotting disorder Chronic kidney disease (CKD) Suicide Anesthesia complication Bleeding disorder Lung disease Cancer Stroke Social History Second hand smoke exposure: No Alcohol intake: never Lives independently: Yes Household members: significant other History of recent travel: No Physical Exam Const: GENERAL APPEARANCE: cooperative and comfortable ORIENT ATION/CONSCIOUSNESS: Yes awake, Yes oriented to person, Yes oriented to place and Yes oriented to time HENMT: COMMON NORMALS: normocephalic and atraumatic HEAD & SCALP: normocephalic and atraumatic Resp: COMMON NORMALS: normal respiratory effort, No retractions, No use of accessory muscles and clear to auscultation bilaterally AUSCULTATION: clear to auscultation bilaterally Cardio: RATE: tachycardic RHYTHM: abnormal rhythm irregularly irregular HEART SOUNDS: Clicking heart sound present (Mechanical S2) GI: COMMON NORMALS: Soft to palpation and No hepatosplenomegaly present AUSCULTATION: Yes normoactive bowel sounds PALPATION: Yes Soft to palpation, No Tenderness to palpation present (GI), No Guarding due to palpation present (GI) and Yes No hepatosplenomegaly present Extremity: COMMON NORMALS: normal to inspection, capillary refill normal, no c lubbing, cyanosis or edema, no calf tenderness and no pedal edema Neuro: SENSORIUM/ORIENTATION: Yes oriented to person, Yes oriented to place and Yes oriented to time Skin: COMMON NORMALS: no rashes or lesions noted GENERAL SKIN EXAM: no rashes or lesions noted Course Vital Signs: Vital signs: Vital Signs Temperature 98.6 F 05/09/21 11:25 Pulse Rate 97 05/09/21 11:25 Respiratory Rate 18 05/09/21 11:25 Blood Pressure 129/75 05/09/21 11:25 Pulse Oximetry 99 05/09/21 11:25 MDM - Chest Pain Medical Decision Making Patient in A. fib with rapid ventricular response although somewhat mild. She has a pacemaker she not having any paced rhythm at this point. Her heart rates varyingly going up into the 120s. She is given IV metoprolol at 2 and half milligrams had an excellent response and heart rate dropped down to the 60s and 70s consistently. We will decrease her amlodipine to 2.5 daily and add metoprolol 25 twice daily have her follow-up with cardiology within the week. Noted that after she got the metoprolol her filling time improved and her blood pressure actually went up as her rate was controlled. Medical Records I reviewed the patient's medical records. Lab Data I reviewed the patient's lab results. : 05/09/21 11:00 05/09/21 11:00 Radiology Impressions Chest X-Ray 05/09/21 10:19 Impression: Permanent pacemaker and atherosclerosis. Laboratory Results WBC 12.2 10^3/uL (4.0-10.0) H 05/09/21 11:00 RBC 4.34 10^6/uL (4.1-5.3) 05/09/21 11:00 Hgb 13.5 g/dL (11.5-15.3) 05/09/21 11:00 Hct 41.8 % (37.0-47.0) 05/09/21 11:00 MCV 96.3 fl (81-99) 05/09/21 11:00 MCH 31.1 pg (28.0-34.0) 05/09/21 11:00 MCHC 32.3 g/dL (30.0-36.0) 05/09/21 11:00 RDW 12.8 % (12.1-15.1) 05/09/21 11:00 Plt Count 270 10^3/cmm (130-400) 05/09/21 11:00 MPV 9.6 fL (7.4-10.4) 05/09/21 11:00 Neut % (Auto) 78.4 % 05/09/21 11:00 Lymph % (Auto) 14.2 % 05/09/21 11:00 [place] % (Auto) 5.7 % 05/09/21 11:00 Eos % (Auto) 0.9 % 05/09/21 11:00 Baso % (Auto) 0.3 % 05/09/21 11:00 Neut # (Auto) 9.55 10^3/uL (1.8-7.7) H 05/09/21 11:00 Lymph # (Auto) 1.7 10^3/uL (0.8-4.8) 05/09/21 11:00 [place] # (Auto) 0.7 10^3/uL (0.2-0.9) 05/09/21 11:00 Eos # (Auto) 0.1 10^3/uL (0.0-0.8) 05/09/21 11:00 Baso # (Auto) 0.0 10^3/uL (0.0-0.1) 05/09/21 11:00 Nucleated RBC % (auto) 0 % 05/09/21 11:00 Nucleated RBCs # 0.0 /100WBC 05/09/21 11:00 Sodium 137 mmol/L (136-145) 05/09/21 11:00 Chloride 101 mmol/L (98-107) 05/09/21 11:00 Carbon Dioxide 22 mmol/L (22-29) 05/09/21 11:00 BUN 17 mg/dL (8-23) 05/09/21 11:00 Creatinine 0.9 mg/dL (0.5-0.9) 05/09/21 11:00 GFR Calculation Not Reportable 05/09/21 11:00 Glucose 90 mg/dL (65-115) 05/09/21 11:00 Calculated Osmolality 285 mOsm/kg (285-295) 05/09/21 11:00 Calcium 10.3 mg/dL (8.5-10.5) 05/09/21 11:00 Total Bilirubin 0.4 mg/dL (0.15-1.2) 05/09/21 11:00 AST 27 U/L (0-32) 05/09/21 11:00 ALT 21 U/L (0-33) 05/09/21 11:00 Alkaline Phosphatase 73 IU/L (35-105) 05/09/21 11:00 Total Protein 7.3 g/dL (6.6-8.7) 05/09/21 11:00 Albumin 4.4 g/dL (3.5-5.2) 05/09/21 11:00 Globulin 2.9 g/dL (1.3-4.6) 05/09/21 11:00 Discharge Plan Discharge Patient Disposition: Home Clinical Impression: Atrial fibrillation, Pacemaker Condition: Stable Prescriptions: New metoprolol tartrate 25 mg tablet 25 mg PO BID Qty: 60 0RF Changed amlodipine 5 mg tablet 2.5 mg PO DAILY Qty: 90 3RF No Action levothyroxine 112 mcg tablet 112 mcg PO DAILY 0RF multivitamin Tablet 1 tab PO DAILY 0RF sennosides-docusate sodium 8.6-50 mg tablet 1 tab-cap PO DAILY 0RF warfarin 1 mg tablet 1 mg PO DIRECTED 0RF Protocol: Dose Management Condition: Friday Dose/Route: 3 mg Instruction: 1 x 3 mg tablet Condition: Friday Dose/Route: 4 mg Instruction: 2 x 2 mg tablets Condition: Friday Dose/Route: 3 mg Instruction: 1 x 3 mg tablet Condition: Friday Dose/Route: 4 mg Instruction: 2 x 2 mg tablets Condition: Dose/Route: 3 mg Instruction: 1 x 3 mg tablet Condition: Friday Dose/Route: 4 mg Instruction: 2 x 2 mg tablets Condition: Friday Dose/Route: 3 mg Instruction: 1 x 3 mg tablet Protocol Text: Adjustment Start Date: Friday05/09/21 INR Value: 1.7 INR Date: 05/07/21 Recheck Date: 05/16/21 prednisone 20 mg tablet 20 mg PO DAILY Qty: 15 0RF Rx Instructions: 60mg on day 1,2,3 40mg on day 4,5 20mg on day 6,7 clopidogrel [Plavix] 75 mg tablet 75 mg PO DAILY 0RF atorvastatin 40 mg tablet See Rx Instructions .ROUTE .COMPLEX Qty: 90 3RF Dose Instruction: Take 1 tablet by mouth once daily Rx Instructions: Take 1 tablet by mouth once daily spironolactone 25 mg tablet See Rx Instructions .ROUTE .COMPLEX Qty: 90 3RF Dose Instruction: TAKE ONE TABLET BY MOUTH ONCE DAILY Rx Instructions: TAKE ONE TABLET BY MOUTH ONCE DAILY warfarin 3 mg tablet 3 mg PO DIRECTED Qty: 90 3RF Protocol: Dose Management Condition: Friday Dose/Route: 3 mg Instruction: 1 x 3 mg tablet Condition: Friday Dose/Route: 4 mg Instruction: 2 x 2 mg tablets Condition: Friday Dose/Route: 3 mg Instruction: 1 x 3 mg tablet Condition: Friday Dose/Route: 4 mg Instruction: 2 x 2 mg tablets Condition: Dose/Route: 3 mg Instruction: 1 x 3 mg tablet Condition: Friday Dose/Route: 4 mg Instruction: 2 x 2 mg tablets Condition: Friday Dose/Route: 3 mg Instruction: 1 x 3 mg tablet Protocol Text: Adjustment Start Date: Friday05/09/21 INR Value: 1.7 INR Date: 05/07/21 Recheck Date: 05/16/21 warfarin 2 mg tablet See Rx Instructions mg .ROUTE .COMPLEX Qty: 90 0RF Protocol: Dose Management Condition: Friday Dose/Route: 3 mg Instruction: 1 x 3 mg tablet Condition: Friday Dose/Route: 4 mg Instruction: 2 x 2 mg tablets Condition: Friday Dose/Route: 3 mg Instruction: 1 x 3 mg tablet Condition: Friday Dose/Route: 4 mg Instruction: 2 x 2 mg tablets Condition: Dose/Route: 3 mg Instruction: 1 x 3 mg tablet Condition: Friday Dose/Route: 4 mg Instruction: 2 x 2 mg tablets Condition: Friday Dose/Route: 3 mg Instruction: 1 x 3 mg tablet Protocol Text: Adjustment Start Date: Friday05/09/21 INR Value: 1.7 INR Date: 05/07/21 Recheck Date: 05/16/21 Dose Instruction: TAKE 1 TABLET (2MG) BY MOUTH DAILY EXCEPT FRIDAY THEN TAKE ONE-HALF TABLET (1 MG) Rx Instructions: TAKE 1 TABLET (2MG) BY MOUTH DAILY EXCEPT FRIDAY THEN TAKE ONE-HALF TABLET (1 MG) hydrocodone-acetaminophen 10-325 mg tablet 1 tab PO .5 times daily PRN (Reason: pain) 30 Days Qty: 150 0RF Rx Instructions: Fill on or after 12/13/20 lorazepam 0.5 mg Tablet 1 mg PO BID PRN (Reason: Anxiety) 0RF potassium chloride 20 mEq Tablet Extended Release 20 meq PO BID@10,21 0RF nitroglycerin [Nitrostat] 0.4 mg Tablet, Sublingual 0.4 mg sublingual Q5M PRN (Reason: Chest Pain) Qty: 25 0RF donepezil 5 mg Tablet 5 mg PO BEDTIME@21 0RF cyanocobalamin (vitamin B-12) 1,000 mcg tablet 1,000 mcg PO DAILY@1000 0RF sertraline [Zoloft] 25 mg tablet 50 mg PO DAILY@1000 0RF furosemide [Lasix] 20 mg tablet 40 mg PO DAILY@1000 0RF Discharge Orders: Discharge ED (Routine); Ordered 05/09/21 Ordered By: Rajeev Gramajo Referrals: Ruy Palacio MD [Primary Care Provider] - Discharge Diet: As Directed Discharge Activity: Increase activity as tolerated Patient Instructions: Opioid Safety Activity Restrictions/Additional Instructions: Follow up with cardiology within the next week. Coding Level of Care Code ED Early Childhood Services Coordinator for Giovani Mendosa
[2021-05-09] MEDS: metoprolol tartrate 1 mg/1 mL SDV 5 mL 2.5 MG IVP (11:24)
[2021-05-09 11:25] VITALS: BP 129/75; PULSE 97; RESP 18; TEMP 37; O2SAT 99
[2021-05-09 11:27] LABS: Basophils % 0.3 %; Eosinophils # 0.1 10^3/uL (0.0-0.8); Eosinophils % 0.9 %; Hematocrit 41.8 % (37.0-47.0); Hemoglobin 13.5 g/dL (11.5-15.3); Lymphocytes # 1.7 10^3/uL (0.8-4.8); Lymphocytes % 14.2 %; Mean Corpuscular HGB Conc 32.3 g/dL (30.0-36.0); Mean Corpuscular Hemoglobin 31.1 pg (28.0-34.0); Mean Corpuscular Volume 96.3 fl (81-99); Mean Platelet Volume 9.6 fL (7.4-10.4); Monocytes # 0.7 10^3/uL (0.2-0.9); Monocytes % 5.7 %; Neutrophils # 9.55 10^3/uL (1.8-7.7); Neutrophils % 78.4 %; Nucleated Red Blood Cells % 0 %; Platelet Count 270 10^3/cmm (130-400); Red Blood Count 4.34 10^6/uL (4.1-5.3); Red Cell Distribution Width 12.8 % (12.1-15.1); White Blood Count 12.2 10^3/uL (4.0-10.0)
[2021-05-09 11:50] LABS: Troponin(5th) Baseline 16 ng/L (0-10)
[2021-05-09 11:51] LABS: Alanine Aminotransferase 21 U/L (0-33); Albumin Level 4.4 g/dL (3.5-5.2); Alkaline Phosphatase 73 IU/L (35-105); Aspartate Amino Transferase 27 U/L (0-32); Blood Urea Nitrogen 17 mg/dL (8-23); Calcium 10.3 mg/dL (8.5-10.5); Carbon Dioxide 22 mmol/L (22-29); Chloride 101 mmol/L (98-107); Globulin 2.9 g/dL (1.3-4.6); Glucose 90 mg/dL (65-115); Osmolality Calculated 285 mOsm/kg (285-295); Sodium 137 mmol/L (136-145); Total Bilirubin 0.4 mg/dL (0.15-1.2); Total Protein 7.3 g/dL (6.6-8.7)
[2021-05-09 12:15] LABS: INR 1.46 (0.8-1.2)
[2021-05-09 12:28] VITALS: BP 126/76; PULSE 96; RESP 18; TEMP 36.8; O2SAT 99
[2021-05-09 12:30] LABS: Anion Gap 18.7 (5-19); Potassium 4.7 mmol/L (3.5-5.1)
--- NOTE | 2021-05-10 11:06 | DCPLANNER ---
Addendum entered by Yanira Jiang 06/08/21 13:00: Patient had a follow up appointment scheduled for 05.28.21 with [facility] - patient did attend appointment. Original Note: food manager had message to schedule a follow up appointment for patient with [facility]. food manager called [facility], spoke with Tammy, gave clinic patients information. A follow up appointment is scheduled for Friday, May 28, 2021 at 2:00 with HYDRAULIC GOVERNOR ASSEMBLER, Christina Valencia. Patient is aware of appointment.
== END 2021-05-09 12:20 | disposition home or self-care (01) ==
PROVIDERS: Physician Assistant; Emergency Provider Family Medicine; PCP Family Medicine
DX: I48.91 Unspecified atrial fibrillation (principal); Z95.0 Presence of cardiac pacemaker; Z79.01 Long term (current) use of anticoagulants; Z79.02 Long term (current) use of antithrombotics/antiplatelets; I10 Essential (primary) hypertension
CPT/HCPCS: 36415; 71045; 80053; 84484; 85025; 85610; 93005; 96374; 99283; J3490

== ENCOUNTER → 2021-05-28 14:40 | Outpatient (BNVA) | payer MEDICARE, MEDICAID, SELFPAY | PROVIDERS: PCP Family Medicine; Visit Provider Nurse Practitioner Family | DX: I48.20 Chronic atrial fibrillation, unspecified (principal); R05.8 Other specified cough; R53.81 Other malaise; I48.91 Unspecified atrial fibrillation; I10 Essential (primary) hypertension; Z20.822 Contact with and (suspected) exposure to COVID-19 | CPT/HCPCS: 87635 ==

== ENCOUNTER → 2021-06-22 10:27 | Outpatient (BNVA) | payer MEDICARE, MEDICAID, SELFPAY | PROVIDERS: PCP Family Medicine; Visit Provider Internal Medicine Cardiovascular Disease | DX: Z79.01 Long term (current) use of anticoagulants (principal) ==

== ENCOUNTER → 2021-06-27 12:30 | Outpatient (BNVA) | payer MEDICARE, MEDICAID, SELFPAY | PROVIDERS: PCP Family Medicine; Visit Provider Internal Medicine Cardiovascular Disease | DX: Z79.01 Long term (current) use of anticoagulants (principal) ==

== ENCOUNTER → 2021-07-12 09:26 | Outpatient (BNVA) | payer MEDICARE, MEDICAID, SELFPAY | PROVIDERS: PCP Family Medicine; Visit Provider Internal Medicine Cardiovascular Disease | DX: I48.91 Unspecified atrial fibrillation (principal); Z79.01 Long term (current) use of anticoagulants ==

== ENCOUNTER → 2021-07-20 12:45 | Outpatient (BNVA) | payer MEDICARE, MEDICAID, SELFPAY | PROVIDERS: PCP Family Medicine; Visit Provider Internal Medicine Cardiovascular Disease | DX: Z79.01 Long term (current) use of anticoagulants (principal) ==

== ENCOUNTER → 2021-08-01 11:42 | Outpatient (BNVA) | payer MEDICARE, MEDICAID, SELFPAY | PROVIDERS: PCP Family Medicine; Visit Provider Internal Medicine Cardiovascular Disease | DX: Z79.01 Long term (current) use of anticoagulants (principal) ==

== ENCOUNTER → 2021-08-09 11:05 | Outpatient (BNVA) | payer MEDICARE, MEDICAID, SELFPAY | PROVIDERS: PCP Family Medicine; Visit Provider Internal Medicine Cardiovascular Disease | DX: Z79.01 Long term (current) use of anticoagulants (principal) ==

== ENCOUNTER → 2021-08-16 15:32 | Outpatient (BNVA) | payer MEDICARE, MEDICAID, SELFPAY | PROVIDERS: PCP Family Medicine; Visit Provider Internal Medicine Cardiovascular Disease | DX: Z79.01 Long term (current) use of anticoagulants (principal) ==

== ENCOUNTER → 2021-08-24 13:02 | Outpatient (BNVA) | payer MEDICARE, MEDICAID, SELFPAY | PROVIDERS: PCP Family Medicine; Visit Provider Internal Medicine Cardiovascular Disease | DX: Z79.01 Long term (current) use of anticoagulants (principal) ==

== ENCOUNTER → 2021-08-31 11:42 | Outpatient (BNVA) | payer MEDICARE, MEDICAID, SELFPAY | PROVIDERS: PCP Family Medicine; Visit Provider Internal Medicine Cardiovascular Disease | DX: Z79.01 Long term (current) use of anticoagulants (principal) ==

== ENCOUNTER → 2021-09-07 13:06 | Outpatient (BNVA) | payer MEDICARE, MEDICAID, SELFPAY | PROVIDERS: PCP Family Medicine; Visit Provider Internal Medicine Cardiovascular Disease | DX: Z79.01 Long term (current) use of anticoagulants (principal) ==

== ENCOUNTER → 2021-09-18 14:00 | Outpatient (BNVA) | payer MEDICARE, MEDICAID, SELFPAY | PROVIDERS: PCP Family Medicine; Visit Provider Internal Medicine Cardiovascular Disease | DX: I48.91 Unspecified atrial fibrillation (principal); Z95.0 Presence of cardiac pacemaker; R25.2 Cramp and spasm; Z79.899 Other long term (current) drug therapy; I13.0 Hypertensive heart and chronic kidney disease with heart failure and stage 1 through stage 4 chronic kidney disease, or unspecified chronic kidney disease; N18.9 Chronic kidney disease, unspecified; I50.33 Acute on chronic diastolic (congestive) heart failure; N17.9 Acute kidney failure, unspecified; Z87.891 Personal history of nicotine dependence; Z79.01 Long term (current) use of anticoagulants; R00.2 Palpitations | CPT/HCPCS: 80048; 83735; 83880; 84443; 85025; 99214 ==

== ENCOUNTER → 2021-09-20 17:18 | Outpatient (BNVA) | payer MEDICARE, MEDICAID, SELFPAY | PROVIDERS: PCP Family Medicine; Visit Provider Internal Medicine Cardiovascular Disease | DX: Z45.010 Encounter for checking and testing of cardiac pacemaker pulse generator [battery] (principal) ==

== ENCOUNTER → 2021-09-21 08:57 | Outpatient (BNVA) | payer MEDICARE, MEDICAID, SELFPAY | PROVIDERS: PCP Family Medicine; Visit Provider Internal Medicine Cardiovascular Disease | DX: Z79.01 Long term (current) use of anticoagulants (principal) ==

== ENCOUNTER → 2021-09-28 09:09 | Outpatient (BNVA) | payer MEDICARE, MEDICAID, SELFPAY | PROVIDERS: PCP Family Medicine; Visit Provider Internal Medicine Cardiovascular Disease | DX: Z79.01 Long term (current) use of anticoagulants (principal) ==

== ENCOUNTER → 2021-10-04 16:56 | Outpatient (BNVA) | payer MEDICARE, MEDICAID, SELFPAY | PROVIDERS: PCP Family Medicine; Visit Provider Internal Medicine Cardiovascular Disease | DX: Z79.01 Long term (current) use of anticoagulants (principal) ==

== ENCOUNTER → 2021-10-12 09:51 | Outpatient (BNVA) | payer MEDICARE, MEDICAID, SELFPAY | PROVIDERS: PCP Family Medicine; Visit Provider Internal Medicine Cardiovascular Disease | DX: Z79.01 Long term (current) use of anticoagulants (principal) ==

== ENCOUNTER → 2021-10-19 13:52 | Outpatient (BNVA) | payer MEDICARE, MEDICAID, SELFPAY | PROVIDERS: PCP Family Medicine; Visit Provider Internal Medicine Cardiovascular Disease | DX: Z79.01 Long term (current) use of anticoagulants (principal) ==

== ENCOUNTER → 2021-10-26 13:10 | Outpatient (BNVA) | payer MEDICARE, MEDICAID, SELFPAY | PROVIDERS: PCP Family Medicine; Visit Provider Internal Medicine Cardiovascular Disease | DX: Z79.01 Long term (current) use of anticoagulants (principal) ==

== ENCOUNTER → 2021-11-01 14:19 | Outpatient (BNVA) | payer MEDICARE, MEDICAID, SELFPAY | PROVIDERS: PCP Family Medicine; Visit Provider Internal Medicine Cardiovascular Disease | DX: Z79.01 Long term (current) use of anticoagulants (principal) ==

== ENCOUNTER → 2021-11-06 11:27 | Outpatient (BNVA) | payer MEDICARE, MEDICAID, SELFPAY | PROVIDERS: PCP Family Medicine; Visit Provider Internal Medicine Cardiovascular Disease | DX: Z79.01 Long term (current) use of anticoagulants (principal) ==

== ENCOUNTER → 2021-12-13 11:06 | Outpatient (BNVA) | payer MEDICARE, MEDICAID, SELFPAY | PROVIDERS: PCP Family Medicine; Visit Provider Nurse Practitioner Family | DX: I10 Essential (primary) hypertension (principal); I48.20 Chronic atrial fibrillation, unspecified; Z95.0 Presence of cardiac pacemaker; Z79.01 Long term (current) use of anticoagulants; Z87.891 Personal history of nicotine dependence | CPT/HCPCS: 99214 ==

== ENCOUNTER 2021-12-29 02:28 | Emergency (ER) | payer MEDICARE, MEDICAID, SELFPAY ==
[2021-12-29] VITALS (13 sets, daily range): BP systolic 102–141; BP diastolic 50–90; PULSE 80–99; RESP 15–20; TEMP 36.8; O2SAT 91–99; BMI 26.6
--- NOTE | 2021-12-29 02:29 | ED_ITS ---
HPI - Fall General: Chief Complaint: Fall Stated Complaint: FALL Time Seen by Provider: 12/29/21 02:28 History of Present Illness: Ms. You is a 76-year-old lady with significant past medical history of chronic anticoagulation as well as Plavix use for history of prosthetic valve who presents to the emergency department due to fall from bed with head back and rib injury. She reports being at her baseline health and thinks she was having a nightmare when she rolled out of her bed which is higher than a typical bed. She struck her head and cut her head and had bleeding. Denies loss of consciousness or prolonged downtime. Does have left rib pain and fairly severe back pain. Does have chronic back pain however this is acutely worsened after fall. Denies new sensory changes. Intensity symptoms is moderate to severe, improved with EMS administered analgesia. No other specific changes in health, exacerbating, or alleviating factors identified. Onset (ago): minute(s) Fall from: out of bed Fall witnessed: no Place fall occurred: home Loss of consciousness: None Prolonged down time: no Symptoms prior to fall: none Location of injury: head, chest and back Severity: severe Review of Systems General: Reports: 10 or more systems reviewed and unremarkable except in HPI and below PFSH ED PFSH: Medical History Arthritis, lumbar spine Atrial fibrillation Chronic atrial fibrillation Patient has history of intermittent atrial fibrillation. Chronic lumbar radiculopathy Depression Encounter for long-term opiate analgesic use History of common carotid artery stent placement Clinically stable Hypercholesterolemia Hypertension Hypothyroidism Pacemaker Spinal stenosis, lumbar region without neurogenic claudication Surgical History Aortic valve replaced 2000 H/O aortic valve replacement H/O section History of appendectomy History of bilateral carotid endarterectomy History of carpal tunnel surgery of left wrist History of carpal tunnel surgery of right wrist History of permanent cardiac pacemaker placement Family History Mother Dementia Father CAD (coronary artery disease) Denies family history of Diabetes Clotting disorder Chronic kidney disease (CKD) Suicide Anesthesia complication Bleeding disorder Lung disease Cancer Stroke Social History Smoking and tobacco status: current every day smoker Second hand smoke exposure: No Alcohol intake: never Lives independently: Yes Household members: significant other History of recent travel: No Physical Exam Const: COMMON NORMALS: alert GENERAL APPEARANCE: cooperative and well developed HENMT: COMMON NORMALS: normocephalic HEAD & SCALP: normocephalic OTHER: Left posterior scalp laceration. No rpice signs or raccoon eyes. No otorrhea or rhinorrhea. Jaw alignment normal. Dentition baseline. No obvious bony step-offs. No septal hematoma. No evidence of ocular entrapment. Eye: COMMON NORMALS: conjunctivae normal CONJUNCTIVA: Yes conjunctivae normal SCLERA: sclerae normal Neck/C-Spine: COMMON NORMALS: supple GENERAL: Yes trachea midline Chest: OTHER: Left chest wall tenderness palpation Resp: COMMON NORMALS: normal respiratory effort EFFORT & INSPECTION: Yes able to speak in complete sentences Cardio: COMMON NORMALS: regular rate and regular rhythm RATE: regular rate RHYTHM: regular rhythm GI: COMMON NORMALS: Soft to palpation PALPATION: Yes Soft to palpation and No Tenderness to palpation present (GI) PERCUSSION: normal to percussion Extremity: GENERAL: Yes normal exam except as noted and No edema Neuro: COMMON NORMALS: moves all extremities SENSORIUM/ORIENTATION: Yes alert and No Orientation impaired Psych: COMMON NORMALS: mental status grossly normal and Normal thought process present THOUGHT PROCESS: Normal thought process present Course Vital Signs: Vital signs: Vital Signs Temperature 98.2 F 12/29/21 02:31 Pulse Rate 85 12/29/21 06:02 Respiratory Rate 18 12/29/21 06:02 Blood Pressure 117/61 12/29/21 05:36 Pulse Oximetry 97 12/29/21 06:02 Oxygen Delivery Me thod 12/29/21 05:36 Oxygen Flow Rate 2 12/29/21 05:36 MDM - Fall Medical Decision Making 76-year-old lady presenting with a fall. Exam as above. Symptom treatment ordered. Tdap ordered. Based on clinical history and exam no indication for labs time. Imaging without acute traumatic injury requiring intervention. Patient proved on reassessment and satisfactory for outpatient management. Medical Records I reviewed the patient's medical records. Lab Data I reviewed the patient's lab results. : 12/29/21 02:35 12/29/21 02:35 Radiology Impressions Cervical Spine CT 12/29/21 02:42 IMPRESSION: 1. No definite acute fracture or post traumatic subluxation by CT. 2. Degenerative/arthritic changes as above. 3. Other findings discussed above. Chest/Abdomen/Pelvis CT 12/29/21 02:42 IMPRESSION: No acute findings. IMPRESSION: No acute findings. COMMENTS: Consistent with the [employer]'s Incidental Findings Committee white paper (J Am Krystina Radiol 2018): Any incidental renal lesion less than 1 cm or classified as too small to characterize, or any incidental cystic renal lesion characterized as simple-appearing, is likely benign. No follow-up imaging is recommended for these lesions per consensus recommendations based on imaging criteria. Head CT 12/29/21 02:42 IMPRESSION: 1. No acute intracranial hemorrhage or mass effect. 2. Changes of microvascular disease, and old left lacunar infarct. 3. Other findings discussed above. Laboratory Results WBC 8.7 10^3/uL (4.0-10.0) 12/29/21 02:35 RBC 3.82 10^6/uL (4.1-5.3) L 12/29/21 02:35 Hgb 12.2 g/dL (11.5-15.3) 12/29/21 02:35 Hct 37.7 % (37.0-47.0) 12/29/21 02:35 MCV 98.7 fl (81-99) 12/29/21 02:35 MCH 31.9 pg (28.0-34.0) 12/29/21 02:35 MCHC 32.4 g/dL (30.0-36.0) 12/29/21 02:35 RDW 13.2 % (12.1-15.1) 12/29/21 02:35 Plt Count 189 10^3/cmm (130-400) 12/29/21 02:35 MPV 9.7 fL (7.4-10.4) 12/29/21 02:35 Neut % (Auto) 70.7 % 12/29/21 02:35 Lymph % (Auto) 15.4 % 12/29/21 02:35 Terrell % (Auto) 9.6 % 12/29/21 02:35 Eos % (Auto) 3.1 % 12/29/21 02:35 Baso % (Auto) 0.6 % 12/29/21 02:35 Neut # (Auto) 6.14 10^3/uL (1.8-7.7) 12/29/21 02:35 Lymph # (Auto) 1.3 10^3/uL (0.8-4.8) 12/29/21 02:35 Terrell # (Auto) 0.8 10^3/uL (0.2-0.9) 12/29/21 02:35 Eos # (Auto) 0.3 10^3/uL (0.0-0.8) 12/29/21 02:35 Baso # (Auto) 0.1 10^3/uL (0.0-0.1) 12/29/21 02:35 Nucleated RBC % (auto) 0 % 12/29/21 02:35 Nucleated RBCs # 0.0 /100WBC 12/29/21 02:35 PT 30.70 SECONDS (12.1-14.9) H 12/29/21 02:35 INR 2.90 (0.8-1.2) H 12/29/21 02:35 Sodium 141 mmol/L (136-145) 12/29/21 02:35 Potassium 3.7 mmol/L (3.5-5.1) 12/29/21 02:35 Chloride 104 mmol/L (98-107) 12/29/21 02:35 Carbon Dioxide 28 mmol/L (22-29) 12/29/21 02:35 Anion Gap 12.7 (5-19) 12/29/21 02:35 BUN 17 mg/dL (8-23) 12/29/21 02:35 Creatinine 1.0 mg/dL (0.5-0.9) H 12/29/21 02:35 GFR Calculation Not Reportable 12/29/21 02:35 Glucose 124 mg/dL (65-115) H 12/29/21 02:35 Calculated Osmolality 295 mOsm/kg (285-295) 12/29/21 02:35 Calcium 9.2 mg/dL (8.5-10.5) 12/29/21 02:35 Discharge Plan Discharge Patient Disposition: Home Clinical Impression: Fall, Head injury, Back pain Condition: Stable Prescriptions: No Action multivitamin Tablet 1 tab PO DAILY sennosides-docusate sodium 8.6-50 mg tablet 1 tab-cap PO DAILY warfarin 1 mg tablet 1 mg PO DIRECTED Protocol: Dose Management Condition: Friday Dose/Route: 2.5 mg Instruction: 2.5 x 1 mg tablets Condition: Friday Dose/Route: 0 mg Instruction: 0 tablets Condition: Friday Dose/Route: 2 mg Instruction: 1 x 2 mg tablet Condition: Friday Dose/Route: 2.5 mg Instruction: 2.5 x 1 mg tablets Condition: Dose/Route: 2 mg Instruction: 1 x 2 mg tablet Condition: Friday Dose/Route: 2.5 mg Instruction: 2.5 x 1 mg tablets Condition: Friday Dose/Route: 2.5 mg Instruction: 2.5 x 1 mg tablets Protocol Text: Adjustment Start Date: Friday01/18/22 INR Value: 4.3 INR Date: 01/14/22 Recheck Date: 01/25/22 clopidogrel [Plavix] 75 mg tablet 75 mg PO DAILY cyclobenzaprine 10 mg tablet 10 mg PO TID PRN (Reason: muscle spasm) 10 Days Qty: 30 3RF levothyroxine 200 mcg tablet 200 mcg PO DAILY Qty: 90 1RF amlodipine 5 mg tablet 5 mg PO DAILY Qty: 90 2RF metoprolol tartrate 25 mg tablet 37.5 mg PO BID Qty: 120 3RF warfarin 3 mg tablet 3 mg PO DIRECTED Qty: 90 3RF Protocol: Dose Management Condition: Friday Dose/Route: 2.5 mg Instruction: 2.5 x 1 mg tablets Condition: Friday Dose/Route: 0 mg Instruction: 0 tablets Condition: Friday Dose/Route: 2 mg Instruction: 1 x 2 mg tablet Condition: Friday Dose/Route: 2.5 mg Instruction: 2.5 x 1 mg tablets Condition: Dose/Route: 2 mg Instruction: 1 x 2 mg tablet Condition: Friday Dose/Route: 2.5 mg Instruction: 2.5 x 1 mg tablets Condition: Friday Dose/Route: 2.5 mg Instruction: 2.5 x 1 mg tablets Protocol Text: Adjustment Start Date: Friday01/18/22 INR Value: 4.3 INR Date: 01/14/22 Recheck Date: 01/25/22 Rx Instructions: Take 1 tab daily as directed per weekly INR results warfarin 2 mg tablet 2 mg PO DIRECTED Qty: 90 3RF Protocol: Dose Management Condition: Friday Dose/Route: 2.5 mg Instruction: 2.5 x 1 mg tablets Condition: Friday Dose/Route: 0 mg Instruction: 0 tablets Condition: Friday Dose/Route: 2 mg Instruction: 1 x 2 mg tablet Condition: Friday Dose/Route: 2.5 mg Instruction: 2.5 x 1 mg tablets Condition: Dose/Route: 2 mg Instruction: 1 x 2 mg tablet Condition: Friday Dose/Route: 2.5 mg Instruction: 2.5 x 1 mg tablets Condition: Friday Dose/Route: 2.5 mg Instruction: 2.5 x 1 mg tablets Protocol Text: Adjustment Start Date: Friday01/18/22 INR Value: 4.3 INR Date: 01/14/22 Recheck Date: 01/25/22 Rx Instructions: Take 1 tab daily as directed per weekly INR results hydrocodone-acetaminophen 10-325 mg tablet 1 tab PO 5XD PRN (Reason: pain) 30 Days Qty: 90 0RF lorazepam 0.5 mg Tablet 0.5 mg PO BID PRN (Reason: Anxiety) potassium chloride 20 mEq Tablet Extended Release 20 meq PO BID@10,21 nitroglycerin [Nitrostat] 0.4 mg Tablet, Sublingual 0.4 mg sublingual Q5M PRN (Reason: Chest Pain) Qty: 25 0RF donepezil 5 mg Tablet 5 mg PO BEDTIME@21 cyanocobalamin (vitamin B-12) 1,000 mcg tablet 1,000 mcg PO DAILY@1000 furosemide 40 mg Tablet 40 mg PO DAILY sertraline 50 mg Tablet 50 mg PO BEDTIME atorvastatin 40 mg tablet 40 mg PO DAILY spironolactone 25 mg tablet 25 mg PO DAILY Discharge Orders: Discharge ED (Routine); Ordered 12/29/21 Ordered By: Luis E Roger Referrals: Ruy Palacio MD [Primary Care Provider] - Discharge Diet: Usual diet Discharge Activity: Increase activity as tolerated Patient Instructions: Head Injury (ED), Contusion in Adults (ED), Back Pain (ED), Opioid Safety, Pain Management Activity Restrictions/Additional Instructions: Thank you for visiting the emergency department. You were seen evaluated for pain and head injury after fall. No acute internal injury was identified on CT imaging. I recommend continuing her on home pain medication regimen as discussed. Return to the emergency department for worsening symptoms or anything else that you are concerned about a feel needs emergency department evaluation. Coding Level of Care Code ED Clean Room As[employer]er for Giovani Mendosa Exam Comprehensive
--- NOTE | 2021-12-29 02:42 | CTR_ITS ---
PROCEDURE INFORMATION: Exam: CT Cervical Spine Without Contrast Exam date and time: 12/29/2021 3:14 AM Age: 76 years old Clinical indication: Injury or trauma; Blunt trauma; Prior surgery; Surgery type: Endarterectomy; Patient HX: Fall out of bed this a. M. C/O head pain with occipital lac. C/O severe neck pain. C/O left ches/abd wall pain with left rib pain. On daily anticoagulants. ; Additional info: Fall, head injury, back pain TECHNIQUE: Imaging protocol: Computed tomography of the cervical spine without contrast. Radiation optimization: All CT scans at this facility use at least one of these dose optimization techniques: automated exposure control; mA and/or kV adjustment per patient size (includes targeted exams where dose is matched to clinical indication); or iterative reconstruction. COMPARISON: CT cervical spin wo con* [id number] 09/16/2019 3:41 PM RADIATION DOSE METRICS: Total DLP (mGy-cm): 160.27 FINDINGS: Bones/joints: On axial CT images, no definite acute fracture is visible. Sagittal and coronal reconstructions show no acute fracture or post traumatic subluxation. Mild to moderate degenerative disc changes at several levels. Moderate to severe facet joint arthritis at several levels. Mild, 1-2 mm of anterior subluxation at C4-C5 and C5-C6. No visible fracture. Prominent facet joint arthritis at these levels is the likely etiology. No definite/significant disc herniation by CT, MRI could be more sensitive if clinically indicated. Lungs: No significant acute finding in the upper lungs. Vasculature: Vascular stents are seen in the carotid arteries in the neck bilaterally. CT/CT cervical spin wo con* [id number] IMPRESSION: 1. No definite acute fracture or post traumatic subluxation by CT. 2. Degenerative/arthritic changes as above. 3. Other findings discussed above.
--- NOTE | 2021-12-29 02:42 | CTR_ITS ---
PROCEDURE INFORMATION: Exam: CT Chest With Contrast; Diagnostic Exam date and time: 12/29/2021 3:18 AM Age: 76 years old Clinical indication: Injury or trauma; Abdominal wall; Blunt trauma (contusions or hematomas); Prior surgery; Surgery type: Aortic valve. Appy. Csection. Pacer. Patient HX: Fall out of bed this a. M. C/O head pain with occipital lac. C/O severe neck pain. C/O left ches/abd wall pain with left rib pain. On daily anticoagulants. ; Additional info: Fall, back and rib pain, warfarin TECHNIQUE: Imaging protocol: Diagnostic computed tomography of the chest with contrast. Radiation optimization: All CT scans at this facility use at least one of these dose optimization techniques: automated exposure control; mA and/or kV adjustment per patient size (includes targeted exams where dose is matched to clinical indication); or iterative reconstruction. Contrast material: OMNI 350; Contrast volume: 80 ml; Contrast route: INTRAVENOUS (IV); COMPARISON: CT chest [facility] [id number] 06/04/2017 1:57 PM RADIATION DOSE METRICS: Total DLP (mGy-cm): 1348.13 FINDINGS: Lungs: No consolidation. No masses. Pleural spaces: Unremarkable. No pneumothorax. No pleural effusion. Heart: Cardiomegaly. There are coronary artery calcifications. Lymph nodes: Unremarkable. No enlarged lymph nodes. Vasculature: Unremarkable. No aortic aneurysm. Bones/joints: Previous median sternotomy. Mild superior endplate depression at T8 without retropulsion, probably chronic. Soft tissues: Unremarkable. PROCEDURE INFORMATION: Exam: CT Abdomen And Pelvis With Contrast Exam date and time: 12/29/2021 3:18 AM Age: 76 years old Clinical indication: Injury or trauma; Abdominal wall; Blunt trauma (contusions or hematomas); Prior surgery; Surgery type: Aortic valve. Appy. Csection. Pacer. Patient HX: Fall out of bed this a. M. C/O head pain with occipital lac. C/O severe neck pain. C/O left ches/abd wall pain with left rib pain. On daily anticoagulants. ; Additional info: Fall, back and rib pain, warfarin TECHNIQUE: Imaging protocol: Computed tomography of the abdomen and pelvis with contrast. Radiation optimization: All CT scans at this facility use at least one of these dose optimization techniques: automated exposure control; mA and/or kV adjustment per patient size (includes targeted exams where dose is matched to clinical indication); or iterative reconstruction. Contrast material: OMNI 350; Contrast volume: 80 ml; Contrast route: INTRAVENOUS (IV); COMPARISON: CT angio chest abdomen pelvis 09/26/2016 5:17 PM RADIATION DOSE METRICS: Total DLP (mGy-cm): 1348.13 FINDINGS: Liver: Unremarkable. Gallbladder and bile ducts: No calcified stones. No ductal dilation. Pancreas: No ductal dilation. Spleen: No splenomegaly. Adrenal glands: Normal. No mass. Kidneys and ureters: Simple 2.4 cm right renal cyst, no follow up necessary. No hydronephrosis. Stomach and bowel: Colonic diverticulosis without findings of diverticulitis. No dilated bowel loops. No high-grade obstruction. Appendix: The appendix is not identified. However, there are no right lower quadrant inflammatory changes. Intraperitoneal space: No free air. No significant fluid collection. Vasculature: Atherosclerotic changes of the aorta. Lymph nodes: No enlarged lymph nodes. Urinary bladder: Unremarkable as visualized. Reproductive: Unremarkable as visualized. Bones/joints: Multilevel degenerative changes are noted. No acute fracture. Soft tissues: Unremarkable. CT/CT chest abd pel w con* IMPRESSION: No acute findings. IMPRESSION: No acute findings. COMMENTS: Consistent with the [employer]'s Incidental Findings Committee white paper (J Am Krystina Radiol 2018): Any incidental renal lesion less than 1 cm or classified as too small to characterize, or any incidental cystic renal lesion characterized as simple-appearing, is likely benign. No follow-up imaging is recommended for these lesions per consensus recommendations based on imaging criteria.
--- NOTE | 2021-12-29 02:42 | CTR_ITS ---
PROCEDURE INFORMATION: Exam: CT Head Without Contrast Exam date and time: 12/29/2021 3:11 AM Age: 76 years old Clinical indication: Injury or trauma; Blunt trauma (contusions or hematomas); Patient HX: Fall out of bed this a. M. C/O head pain with occipital lac. C/O severe neck pain. C/O left ches/abd wall pain with left rib pain. On daily anticoagulants. ; Additional info: Fall, head lac, warfarin TECHNIQUE: Imaging protocol: Computed tomography of the head without contrast. Radiation optimization: All CT scans at this facility use at least one of these dose optimization techniques: automated exposure control; mA and/or kV adjustment per patient size (includes targeted exams where dose is matched to clinical indication); or iterative reconstruction. COMPARISON: CT head wo con* [id number] 06/06/2020 5:00 PM RADIATION DOSE METRICS: Total DLP (mGy-cm): 1118.58 FINDINGS: Brain: No acute intracranial hemorrhage or mass effect. There is mild decreased attenuation in the periventricular white matter, likely from microvascular disease. There is an old lacunar infarct in the left caudate nucleus, similar to the prior exam. No definite acute infarct by CT. Cerebral ventricles: Ventricle size is normal for age. Paranasal sinuses: Very mild mucosal thickening in the inferior left maxillary sinus. Included paranasal sinuses otherwise appear essentially clear. Mastoid air cells: No significant acute finding. Bones/joints: No definite acute skull fracture. Soft tissues: Evidence for soft tissue injury/scalp hematoma/laceration in the left posterior parietal region. Vasculature: Vascular calcifications in the internal carotid and vertebral basilar systems. CT/CT head wo con* [id number] IMPRESSION: 1. No acute intracranial hemorrhage or mass effect. 2. Changes of microvascular disease, and old left lacunar infarct. 3. Other findings discussed above.
[2021-12-29 02:52] LABS: Basophils # 0.1 10^3/uL (0.0-0.1); Basophils % 0.6 %; Eosinophils # 0.3 10^3/uL (0.0-0.8); Eosinophils % 3.1 %; Hematocrit 37.7 % (37.0-47.0); Hemoglobin 12.2 g/dL (11.5-15.3); Lymphocytes # 1.3 10^3/uL (0.8-4.8); Lymphocytes % 15.4 %; Mean Corpuscular HGB Conc 32.4 g/dL (30.0-36.0); Mean Corpuscular Hemoglobin 31.9 pg (28.0-34.0); Mean Corpuscular Volume 98.7 fl (81-99); Mean Platelet Volume 9.7 fL (7.4-10.4); Monocytes # 0.8 10^3/uL (0.2-0.9); Monocytes % 9.6 %; Neutrophils # 6.14 10^3/uL (1.8-7.7); Neutrophils % 70.7 %; Nucleated Red Blood Cells % 0 %; Platelet Count 189 10^3/cmm (130-400); Red Blood Count 3.82 10^6/uL (4.1-5.3); Red Cell Distribution Width 13.2 % (12.1-15.1); White Blood Count 8.7 10^3/uL (4.0-10.0)
--- NOTE | 2021-12-29 02:53 | PC.NURSE ---
patient o2 saturation 90% on ra, 2l per min via nc applied, pulse ox changed to left index finger, increase to 96% o2 saturation. reinforced importance of leaving c collar in place. at bedside.
[2021-12-29] MEDS: morphine 4 mg/mL SDV 1 mL IVP ×3 (02:58→05:18)
--- NOTE | 2021-12-29 03:01 | PC.NURSE ---
patient repeatedly asking for c collar to be removed, reinforced purpose of c collar and to not attempt removal. patient and family verbalized understanding. warm blankets applied for comfort, active listening used to calm patient. status improved, pt verbalized thanks.
--- NOTE | 2021-12-29 03:08 | PC.NURSE ---
patient taken to ct at this time via stretcher with c collar intact.
[2021-12-29 03:21] LABS: Anion Gap 12.7 (5-19); Blood Urea Nitrogen 17 mg/dL (8-23); Calcium 9.2 mg/dL (8.5-10.5); Carbon Dioxide 28 mmol/L (22-29); Chloride 104 mmol/L (98-107); Glucose 124 mg/dL (65-115); Osmolality Calculated 295 mOsm/kg (285-295); Potassium 3.7 mmol/L (3.5-5.1); Sodium 141 mmol/L (136-145)
[2021-12-29] MEDS: iohexol 350 mg/mL 100 mL Btl IV (03:34)
[2021-12-29] MEDS: tetanus-dipt-pertussis 0.5 mL SDV IM (05:29)
== END 2021-12-29 06:16 | disposition home or self-care (01) ==
PROVIDERS: Emergency Provider Emergency Medicine; PCP Family Medicine
DX: S09.90XA Unspecified injury of head, initial encounter (principal); M54.9 Dorsalgia, unspecified; I48.20 Chronic atrial fibrillation, unspecified; I10 Essential (primary) hypertension; E03.9 Hypothyroidism, unspecified; Z23 Encounter for immunization; Z79.01 Long term (current) use of anticoagulants; W06.XXXA Fall from bed, initial encounter
CPT/HCPCS: 70450; 71260; 72125; 74177; 80048; 85025; 85610; 90471; 90715; 96374; 96376; 99285; J2270; Q9967

== ENCOUNTER 2021-12-31 16:07 | Emergency (ER) | payer MEDICARE, MEDICAID, SELFPAY ==
--- NOTE | 2021-12-31 16:11 | CTR_ITS ---
PROCEDURE INFORMATION: Exam: CT Head Without Contrast Exam date and time: 12/31/2021 6:25 PM Age: 76 years old Clinical indication: Injury or trauma; Fall; Blunt trauma (contusions or hematomas) TECHNIQUE: Imaging protocol: Computed tomography of the head without contrast. Radiation optimization: All CT scans at this facility use at least one of these dose optimization techniques: automated exposure control; mA and/or kV adjustment per patient size (includes targeted exams where dose is matched to clinical indication); or iterative reconstruction. COMPARISON: CT head wo con* [id number] 12/29/2021 3:11 AM RADIATION DOSE METRICS: Total DLP (mGy-cm): 293 FINDINGS: Brain: No hemorrhage. No edema. Mild diffuse cerebral atrophy and sequela of chronic small vessel ischemic disease. No mass effect. Cerebral ventricles: No ventriculomegaly. Paranasal sinuses: Visualized sinuses are unremarkable. No fluid levels. Mastoid air cells: Visualized mastoid air cells are well aerated. Bones/joints: Unremarkable. No acute fracture. Soft tissues: Unremarkable. CT/CT head wo con* [id number] IMPRESSION: No acute intracranial abnormality.
--- NOTE | 2021-12-31 16:11 | CTR_ITS ---
PROCEDURE INFORMATION: Exam: CT Cervical Spine Without Contrast Exam date and time: 12/31/2021 6:30 PM Age: 76 years old Clinical indication: Injury or trauma; Fall; Blunt trauma TECHNIQUE: Imaging protocol: Computed tomography of the cervical spine without contrast. Radiation optimization: All CT scans at this facility use at least one of these dose optimization techniques: automated exposure control; mA and/or kV adjustment per patient size (includes targeted exams where dose is matched to clinical indication); or iterative reconstruction. COMPARISON: CT cervical spin wo con* [id number] 12/29/2021 3:14 AM RADIATION DOSE METRICS: Total DLP (mGy-cm): 195.77 FINDINGS: Bones/joints: No acute fracture. Normal alignment. No significant disc protrusion. No severe spinal canal stenosis. Lungs: Lung apices are normal. Soft tissues: Unremarkable. CT/CT cervical spin wo con* [id number] IMPRESSION: No acute findings.
[2021-12-31 16:26] VITALS: BP 129/77; PULSE 95; RESP 16; TEMP 36.1; O2SAT 94
--- NOTE | 2021-12-31 18:50 | ECG_ITS ---
[facility] Test Date: 2021-12-31 Pat Name: Jennifer You Department: Room: Gender: Female Monitor Technician: : 1945 Requested By: Jemal Chisholm Order Number: [id number] Yarelis MD: Phan Steward M.D. Measurements Intervals [place] Rate: 93 P: [place]: QRS: -14 QRSD: 102 T: -3 QT: 382 QTc: 477 Interpretive Statements ATRIAL FIBRILLATION INCOMPLETE RIGHT BUNDLE BRANCH BLOCK [90+ ms QRS DURATION, TERMINAL R IN V1/V2, 40+ ms S IN I/aVL/V4/V5/V6] SEPTAL MYOCARDIAL INFARCTION , OF INDETERMINATE AGE [40+ ms Q WAVE IN V1/V2] MODERATE T-WAVE ABNORMALITY, CONSIDER ANTERIOR ISCHEMIA [-0.1+ mV T-WAVE IN V3/V4] Compared to ECG 05/09/2021 10:23:36 T-wave abnormality now present Possible ischemia now present Myocardial infarct finding still present Electronically Signed On 01-01-2022 20:37:01 CDT by Phan Steward M.D. [id number]
--- NOTE | 2021-12-31 18:51 | XRR_ITS ---
PROCEDURE INFORMATION: Exam: XR Abdomen Exam date and time: 12/31/2021 7:33 PM Age: 76 years old Clinical indication: Abdominal pain; Generalized; Prior surgery; Surgery date: 6+ months; Surgery type: Appy TECHNIQUE: Imaging protocol: Radiologic exam of the abdomen. Views: Frontal supine view of the abdomen. 1 View. COMPARISON: CT chest abd pel w con* 12/29/2021 3:18 AM FINDINGS: Gastrointestinal tract: Normal. No bowel dilation. Bones/joints: Unremarkable. XR/XR abdomen 1V* [id number] IMPRESSION: No acute findings.
--- NOTE | 2021-12-31 18:51 | XRR_ITS ---
PROCEDURE INFORMATION: Exam: XR Chest Exam date and time: 12/31/2021 7:33 PM Age: 76 years old Clinical indication: Other: Abd pain; Prior surgery; Surgery date: 6+ months; Surgery type: Pacemaker, appy, aortic valve TECHNIQUE: Imaging protocol: Radiologic exam of the chest. Views: 1 view. COMPARISON: CT chest abd pel w con* 12/29/2021 3:18 AM FINDINGS: Tubes, catheters and devices: Pacemaker. Lungs: Unremarkable. No consolidation. Pleural spaces: Unremarkable. No pleural effusion. No pneumothorax. Heart/Mediastinum: Cardiomegaly. Vasculature: Artificial aortic valve. Bones/joints: Sternotomy wires. XR/XR chest 1V portable [id number] IMPRESSION: Cardiomegaly, lungs are clear
--- NOTE | 2021-12-31 18:55 | W.ED.AMS ---
HPI - Altered Mental Status General: Chief Complaint: Altered Mental Status Stated Complaint: Sent from , fall/head injury Time Seen by Provider: 12/31/21 18:26 Source: patient and family Mode of arrival: ambulatory Limitations: no limitations History of Present Illness: per daughter, pt with confusion and hallucinations since friday. Complaint of fall on Friday and hit left occipital scalp. Patient was seen in the emergency room on Friday and evaluated for the fall. Reportedly CT of the head and neck and abdomen were all negative at that time. Daughter states that patient's had increased confusion and some auditory hallucinations since then. Patient states she mainly complains of pain to her upper abdomen. She complains of minimal headache and has chronic back pain. She states she takes hydrocodone for chronic back pain. Her last bowel movement was 2 days ago. She is on Coumadin and Plavix for history of artificial heart valve past surgical history includes artificial heart valve, pacemaker, C-sections x4, appendectomy. She still has her gallbladder. Denies hysterectomy. complaint: confusion Onset (ago): day(s) Severity: moderate Consistency of symptoms: Waxing and Waning Context: alcohol abuse and other (On hydrocodone and Ativan.) Associated symptoms: Reports auditory hallucinations Review of Systems Narrative: Mild confusion Const: Denies: fever(s) or chills Eyes: Denies: change in vision ENMT: Reports: other (Mild tenderness to the left occipital scalp where patient had an abrasion); Denies: throat pain Card: Denies: chest pain or palpitations Resp: Denies: dyspnea or wheezing GI: Denies: nausea or vomiting : Denies: flank pain Musc: Denies: neck pain Skin/Breast: Denies: rash or pruritus Neuro: Reports: headache(s) and confusion; Denies: numbness in extremities Psych: Reports: auditory hallucinations Cristobal/Lymph: Denies: enlarged lymph nodes PFSH ED PFSH: Medical History Arthritis, lumbar spine Atrial fibrillation Chronic atrial fibrillation Patient has history of intermittent atrial fibrillation. Chronic lumbar radiculopathy Depression Encounter for long-term opiate analgesic use History of common carotid artery stent placement Clinically stable Hypercholesterolemia Hypertension Hypothyroidism Pacemaker Spinal stenosis, lumbar region without neurogenic claudication Surgical History Aortic valve replaced 2000 H/O aortic valve replacement H/O section History of appendectomy History of bilateral carotid endarterectomy History of carpal tunnel surgery of left wrist History of carpal tunnel surgery of right wrist History of permanent cardiac pacemaker placement Family History Mother Dementia Father CAD (coronary artery disease) Denies family history of Diabetes Clotting disorder Chronic kidney disease (CKD) Suicide Anesthesia complication Bleeding disorder Lung disease Cancer Stroke Social History Smoking and tobacco status: current every day smoker Second hand smoke exposure: No Alcohol intake: never Lives independently: Yes Household members: significant other History of recent travel: No Physical Exam Const: COMMON NORMALS: no acute distress, patient oriented x3, no limitations, alert and well nourished GENERAL APPEARANCE: cooperative HENMT: COMMON NORMALS: normocephalic HEAD & SCALP: normocephalic OTHER: Mild tenderness to the left occipital lower scalp where there is a mild abrasion. No step-off. Eye: COMMON NORMALS: EOMs intact bilaterally Neck/C-Spine: COMMON NORMALS: full ROM, no lymphadenopathy, supple and no JVD Lymph: LYMPHATIC: no lymphadenopathy noted Chest: COMMONS NORMALS: normal inspection of the chest and normal palpation of entire chest wall Resp: COMMON NORMALS: normal respiratory effort, No retractions, No use of accessory muscles and clear to auscultation bilaterally AUSCULTATION: clear to auscultation bilaterally Cardio: COMMON NORMALS: no JVD, regular rate, regular rhythm and Peripheral pulses 2+ throughout RATE: regular rate RHYTHM: regular rhythm PERIPHERAL PULSES: Peripheral pulses 2+ throughout GI: COMMON NORMALS: Normal to inspection, nondistended, normoactive bowel sounds present and Soft to palpation PALPATION: Yes Soft to palpation OTHER: Abdomen soft. Normoactive bowel sounds throughout. Mild epigastric abdominal pain. No evidence of trauma. No ecchymosis abrasions or lacerations. : COMMON NORMALS: Yes no CVA tenderness BLADDER/KIDNEY EXAM: Yes no CVA tenderness Back/Pelvis: COMMON NORMALS: no CVA tenderness Extremity: COMMON NORMALS: normal to inspection and full ROM Neuro: COMMON NORMALS: patient oriented x3 SENSORIUM/ORIENTATION: Yes alert Psych: COMMON NORMALS: mental status grossly normal, Normal thought process present, cooperative, normal affect and speech normal SPEECH: Yes normal speech THOUGHT PROCESS: Normal thought process present OTHER: Patient is alert and oriented x3. No active hallucinations. No active confusion. Skin: COMMON NORMALS: no rashes or lesions noted GENERAL SKIN EXAM: no rashes or lesions noted Course Vital Signs: Vital signs: Vital Signs Temperature 96.9 F L 12/31/21 16:26 Pulse Rate 95 12/31/21 21:00 Respiratory Rate 16 12/31/21 21:00 Blood Pressure 126/73 12/31/21 21:00 Pulse Oximetry 95 12/31/21 21:00 Oxygen Delivery Me thod 12/31/21 21:00 MDM - Altered Mental Status Medical Decision Making Abdominal pain likely due to constipation. Lab Data : 12/31/21 19:26 12/31/21 19:26 Radiology Impressions Cervical Spine CT 12/31/21 16:11 IMPRESSION: No acute findings. Head CT 12/31/21 16:11 IMPRESSION: No acute intracranial abnormality. Abdomen X-Ray 12/31/21 18:51 IMPRESSION: No acute findings. Chest X-Ray 12/31/21 18:51 IMPRESSION: Cardiomegaly, lungs are clear Abdomen/Pelvis CT 12/31/21 20:18 IMPRESSION: 1. Negative for acute inflammatory process in the abdomen or pelvis. 2. Bilateral dependent atelectasis versus minimal infiltrate. 3. Cardiomegaly. 4. Pacemaker. 5. Coronary artery atherosclerotic calcifications suspected. 6. Right kidney cyst, negative for follow-up advised. 7. Diverticulosis without diverticulitis. 8. Left kidney lower pole punctate nonobstructing calyceal stone. Laboratory Results WBC 11.3 10^3/uL (4.0-10.0) H 12/31/21 19: RBC 4.04 10^6/uL (4.1-5.3) L 12/31/21: Hgb 12.8 g/dL (11.5-15.3) 12/31/21: Hct 39.2 % (37.0-47.0) 12/31/21: MCV 97.0 fl (81-99) 12/31/21: MCH 31.7 pg (28.0-34.0) 12/31/21: MCHC 32.7 g/dL (30.0-36.0) 12/31/21: RDW 13.2 % (12.1-15.1) 12/31/21: Plt Count 215 10^3/cmm (130-400) 12/31/21: MPV 9.8 fL (7.4-10.4) 12/31/21: Neut % (Auto) 77.2 % 12/31/21: Lymph % (Auto) 11.0 % 12/31/21: [place] % (Auto) 9.9 % 12/31/21: Eos % (Auto) 1.1 % 12/31/21: Baso % (Auto) 0.4 % 12/31/21 Neut # (Auto) 8.73 10^3/uL (1.8-7.7) H 12/31/21: Lymph # (Auto) 1.2 10^3/uL (0.8-4.8) 12/31/21: [place] # (Auto) 1.1 10^3/uL (0.2-0.9) H 12/31/21: Eos # (Auto) 0.1 10^3/uL (0.0-0.8) 12/31/21: Baso # (Auto) 0.1 10^3/uL (0.0-0.1) 12/31/21: Nucleated RBC % (auto) 0 % 12/31/21: Nucleated RBCs # 0.0 /100WBC 12/31/21: PT 41.20 SECONDS (12.1-14.9) H 12/31/21: INR 4.26 (0.8-1.2) H 12/31/21: Sodium 136 mmol/L (136-145) 12/31/21 19: Potassium 3.9 mmol/L (3.5-5.1) 12/31/21: Chloride 98 mmol/L (98-107) 12/31/21: Carbon Dioxide 27 mmol/L (22-29) 09/19/22 19:26 Anion Gap 14.9 (5-19) 12/31/21 19:26 BUN 19 mg/dL (8-23) 12/31/21 19: Creatinine 0.9 mg/dL (0.5-0.9) 12/31/21 19:26 GFR Calculation Not Reportable 12/31/21 19: Glucose 106 mg/dL (65-115) 12/31/21 19:26 Calculated Osmolality 285 mOsm/kg (285-295) 12/31/21 19:26 Lactate 1.2 mmol/L (0.5-2.2) 12/31/21 19:26 Calcium 9.4 mg/dL (8.5-10.5) 12/31/21: Total Bilirubin 1.1 mg/dL (0.15-1.2) 12/31/21 19:26 AST 26 U/L (0-32) 12/31/21 19: ALT 17 U/L (0-33) 12/31/21 19:26 Alkaline Phosphatase 93 U/L (35-105) 12/31/21 19:26 Total Protein 7.4 g/dL (6.6-8.7) 12/31/21 19:26 Albumin 4.0 g/dL (3.5-5.2) 12/31/21 19: Globulin 3.4 g/dL (1.3-4.6) 12/31/21 19: Lipase 19 U/L (13-60) 12/31/21 19: TSH 4.00 uIU/mL (0.27-4.20) 12/31/21 19:26 Urine Color Yellow (Yellow) 12/31/21 16:38 Urine Appearance Clear (CLEAR) 12/31/21 16:38 Urine pH 5 (5-7) 12/31/21 16:38 Ur Specific [place] 1.015 (1.005-1.030) 12/31/21 16:38 Urine Protein Neg (Negative) 12/31/21 16:38 Urine Glucose (UA) Norm (Normal) 12/31/21 16:38 Urine Ketones Negative (Negative) 12/31/21 16:38 Urine Blood Neg (Negative) 12/31/21 16:38 Urine Nitrate Negative (Negative) 12/31/21 16:38 Urine Bilirubin Neg (Negative) 12/31/21 16:38 Urine Urobilinogen Norm mg/dL (Negative) 12/31/21 16:38 Ur Leukocyte Esterase Negative (Negative) 12/31/21 16:38 Urine RBC None /hpf (0-2) 12/31/21 16:38 Urine WBC None /hpf (0-5) 12/31/21 16:38 Ur Squamous Epith Cells 0-4 /hpf (0-5) H 12/31/21 16:38 Amorphous Sediment Not Reportable 12/31/21 16:38 Urine Bacteria None /hpf (NONE) 12/31/21 16:38 Hyaline Casts 0-4 /lpf H 12/31/21 16:[address] Head: Radiologist's impression: Ordering Provider/Ordering MD: Alexandra Parsons MD Date of Service: 12/31/21 Procedure(s): CT head wo con* [id number] Accession Number(s): [id number] Report Number: [id number] PROCEDURE INFORMATION: Exam: CT Head Without Contrast Exam date and time: 12/31/2021 6:25 PM Age: 76 years old Clinical indication: Injury or trauma; Fall; Blunt trauma (contusions or hematomas) TECHNIQUE: Imaging protocol: Computed tomography of the head without contrast. Radiation optimization: All CT scans at this facility use at least one of these dose optimization techniques: automated exposure control; mA and/or kV adjustment per patient size (includes targeted exams where dose is matched to clinical indication); or iterative reconstruction. COMPARISON: CT head wo con* [id number] 12/29/2021 3:11 AM RADIATION DOSE METRICS: Total DLP (mGy-cm): 293 FINDINGS: Brain: No hemorrhage. No edema. Mild diffuse cerebral atrophy and sequela of chronic small vessel ischemic disease. No mass effect. Cerebral ventricles: No ventriculomegaly. Paranasal sinuses: Visualized sinuses are unremarkable. No fluid levels. Mastoid air cells: Visualized mastoid air cells are well aerated. Bones/joints: Unremarkable. No acute fracture. Soft tissues: Unremarkable. CT/CT head wo con* [id number] IMPRESSION: No acute intracranial abnormality. ? Dictated By: Solitario Mcfarlane DO Signed By: Solitario Mcfarlane DO Signed Date/Time: 12/31/211923 CXR: My impression: Nothing acute. Pacemaker in place. No free air or infiltrates. Radiologist's impression: Exam: XR Chest Exam date and time: 12/31/2021 7:33 PM Age: 76 years old Clinical indication: Other: Abd pain; Prior surgery; Surgery date: 6+ months; Surgery type: Pacemaker, appy, aortic valve TECHNIQUE: Imaging protocol: Radiologic exam of the chest. Views: 1 view. COMPARISON: CT chest abd pel w con* 12/29/2021 3:18 AM FINDINGS: Tubes, catheters and devices: Pacemaker. Lungs: Unremarkable. No consolidation. Pleural spaces: Unremarkable. No pleural effusion. No pneumothorax. Heart/Mediastinum: Cardiomegaly. Vasculature: Artificial aortic valve. Bones/joints: Sternotomy wires. XR/XR chest 1V portable [id number] IMPRESSION: Cardiomegaly, lungs are clear ? Dictated By: Rolo Sanz MD Signed By: Rolo Sanz MD Signed Date/Time: 12/31/212021 KUB: My impression: Nothing acute. Moderate amount of stool throughout the colon. No obstruction. Radiologist's impression: Nothing acute. Other CT: My impression: CT of the cervical spine was read as negative for acute findings by radiologist. CT Abd/Pel: Radiologist's impression: Ordering Provider/Ordering MD: Jemal Estrada MD Date of Service: 12/31/21 Procedure(s): CT abdomen pelvis w con* [id number] Accession Number(s): [id number] Report Number: [id number] PROCEDURE INFORMATION: Exam: CT Abdomen And Pelvis With Contrast Exam date and time: 12/31/2021 8:32 PM Age: 76 years old Clinical indication: Abdominal pain; Generalized; Prior surgery; Surgery type: Aortic valve replacement, c section, appx, pacemaker; Additional info: Upper abd pain TECHNIQUE: Imaging protocol: Computed tomography of the abdomen and pelvis with contrast. Radiation optimization: All CT scans at this facility use at least one of these dose optimization techniques: automated exposure control; mA and/or kV adjustment per patient size (includes targeted exams where dose is matched to clinical indication); or iterative reconstruction. Contrast material: OMNIPAQUE 350; Contrast volume: 80 ml; Contrast route: INTRAVENOUS (IV);? COMPARISON: CT chest abd pel w con* 12/29/2021 3:18 AM RADIATION DOSE METRICS: Total DLP (mGy-cm): 431.02 FINDINGS: Tubes, catheters and devices: Pacemaker. Lungs: Bilateral dependent atelectasis versus minimal infiltrate. Heart: Cardiomegaly. Coronary artery atherosclerotic calcifications suspected. Liver: Normal. No mass. Gallbladder and bile ducts: Normal. No calcified stones. No ductal dilation. Pancreas: Normal. No ductal dilation. Spleen: Normal. No splenomegaly. Adrenal glands: Normal. No mass. Kidneys and ureters: Right kidney cyst, negative for follow-up advised.? Left kidney lower pole punctate nonobstructing calyceal stone. Stomach and bowel: Diverticulosis without diverticulitis. Appendix: No evidence of appendicitis. Intraperitoneal space: Unremarkable. No free air. No significant fluid collection. Vasculature: Unremarkable. No abdominal aortic aneurysm. Lymph nodes: Unremarkable. No enlarged lymph nodes. Urinary bladder: Unremarkable as visualized. Reproductive: Unremarkable as visualized. Bones/joints: Unremarkable. No acute fracture. Soft tissues: Unremarkable. CT/CT abdomen pelvis w con* [id number] IMPRESSION: 1. Negative for acute inflammatory process in the abdomen or pelvis. 2. Bilateral dependent atelectasis versus minimal infiltrate. 3. Cardiomegaly. 4. Pacemaker. 5. Coronary artery atherosclerotic calcifications suspected. 6. Right kidney cyst, negative for follow-up advised. 7. Diverticulosis without diverticulitis. 8.? Left kidney lower pole punctate nonobstructing calyceal stone. ? Dictated By: Rolo Sanz MD Signed By: Rolo Sanz MD Signed Date/Time: 12/31/212049 EKG Data EKG 1: I personally reviewed and interpreted this EKG as follows: EKG interpretation date: 12/31/21 EKG interpretation time: :23 Interpretation: Atrial fibrillation with rate control. Heart rate 93. Nonspecific ST-T changes throughout. Left axis. Mildly inverted T waves in anterior lateral leads. Impression atrial fibrillation rate controlled. Nonspecific ST-T changes. Other Data I reviewed CT of the head and saw nothing acute. Awaiting radiology report. 2124: Patient is doing well. I reviewed radiology and lab results with daughter and patient. Patient is comfortable now. Daughter would like to take the patient home. She states she will get [id number] stool softeners and laxatives for the patient. She states she does not need a prescription for this. I Do not believe patient needs to be admitted at this time. Discharge Plan Discharge Patient Disposition: Home Clinical Impression: Abdominal pain, Delirium due to general medical condition Condition: Stable Prescriptions: No Action multivitamin Tablet 1 tab PO DAILY sennosides-docusate sodium 8.6-50 mg tablet 1 tab-cap PO DAILY warfarin 1 mg tablet 1 mg PO DIRECTED Protocol: Dose Management Condition: Friday Dose/Route: 3 mg Instruction: 1 x 3 mg tablet Condition: Friday Dose/Route: 3 mg Instruction: 1 x 3 mg tablet Condition: Friday Dose/Route: 3 mg Instruction: 1 x 3 mg tablet Condition: Friday Dose/Route: 3 mg Instruction: 1 x 3 mg tablet Condition: Dose/Route: 3 mg Instruction: 1 x 3 mg tablet Condition: Friday Dose/Route: 3 mg Instruction: 1 x 3 mg tablet Condition: Friday Dose/Route: 3 mg Instruction: 1 x 3 mg tablet Protocol Text: Adjustment Start Date: 12/27/21 INR Value: 3.1 INR Date: 12/25/21 Recheck Date: 01/03/22 clopidogrel [Plavix] 75 mg tablet 75 mg PO DAILY levothyroxine 200 mcg tablet 200 mcg PO DAILY Qty: 90 1RF amlodipine 5 mg tablet 5 mg PO DAILY Qty: 90 2RF metoprolol tartrate 25 mg tablet 37.5 mg PO BID Qty: 120 3RF warfarin 3 mg tablet 3 mg PO DIRECTED Qty: 90 3RF Protocol: Dose Management Condition: Friday Dose/Route: 3 mg Instruction: 1 x 3 mg tablet Condition: Friday Dose/Route: 3 mg Instruction: 1 x 3 mg tablet Condition: Friday Dose/Route: 3 mg Instruction: 1 x 3 mg tablet Condition: Friday Dose/Route: 3 mg Instruction: 1 x 3 mg tablet Condition: Dose/Route: 3 mg Instruction: 1 x 3 mg tablet Condition: Friday Dose/Route: 3 mg Instruction: 1 x 3 mg tablet Condition: Friday Dose/Route: 3 mg Instruction: 1 x 3 mg tablet Protocol Text: Adjustment Start Date: 12/27/21 INR Value: 3.1 INR Date: 12/25/21 Recheck Date: 01/03/22 Rx Instructions: Take 1 tab daily as directed per weekly INR results warfarin 2 mg tablet 2 mg PO DIRECTED Qty: 90 3RF Protocol: Dose Management Condition: Friday Dose/Route: 3 mg Instruction: 1 x 3 mg tablet Condition: Friday Dose/Route: 3 mg Instruction: 1 x 3 mg tablet Condition: Friday Dose/Route: 3 mg Instruction: 1 x 3 mg tablet Condition: Friday Dose/Route: 3 mg Instruction: 1 x 3 mg tablet Condition: Dose/Route: 3 mg Instruction: 1 x 3 mg tablet Condition: Friday Dose/Route: 3 mg Instruction: 1 x 3 mg tablet Condition: Friday Dose/Route: 3 mg Instruction: 1 x 3 mg tablet Protocol Text: Adjustment Start Date: 12/27/21 INR Value: 3.1 INR Date: 12/25/21 Recheck Date: 01/03/22 Rx Instructions: Take 1 tab daily as directed per weekly INR results lorazepam 0.5 mg Tablet 0.5 mg PO BID PRN (Reason: Anxiety) potassium chloride 20 mEq Tablet Extended Release 20 meq PO BID@10,21 nitroglycerin [Nitrostat] 0.4 mg Tablet, Sublingual 0.4 mg sublingual Q5M PRN (Reason: Chest Pain) Qty: 25 0RF donepezil 5 mg Tablet 5 mg PO BEDTIME@21 cyanocobalamin (vitamin B-12) 1,000 mcg tablet 1,000 mcg PO DAILY@1000 furosemide 40 mg Tablet 40 mg PO DAILY sertraline 50 mg Tablet 50 mg PO BEDTIME atorvastatin 40 mg tablet 40 mg PO DAILY hydrocodone-acetaminophen 10-325 mg tablet 1 tab PO 5XD PRN (Reason: pain) Rx Instructions: Fill on or after 12/13/20 spironolactone 25 mg tablet 25 mg PO DAILY Discharge Orders: Discharge ED (Routine); Ordered 12/31/21 Ordered By: Jemal Estrada Referrals: Ruy Palacio MD [Primary Care Provider] - (Follow-up this week for recheck) Discharge Diet: Advance as tolerated Discharge Activity: Increase activity as tolerated Patient Instructions: Abdominal Pain (ED), Altered Mental Status (ED), Opioid Safety, Pain Management Activity Restrictions/Additional Instructions: Follow-up with family doctor this week for recheck. Take [id number] stool softeners and laxatives to help with constipation. Constipation likely due to narcotic use. Coding Level of Care Code ED Aircraft Cleaner for Chg Fwd Exam Comprehensive Medical Decision Making High Complexity
[2021-12-31 19:08] VITALS: BP 133/85; PULSE 92; RESP 16; O2SAT 96
[2021-12-31 19:15] VITALS: RESP 16; O2SAT 94
[2021-12-31] MEDS: morphine 4 mg/mL SDV 1 mL 2 MG IVP (19:15)
[2021-12-31] MEDS: ondansetron 2 mg/ML SDV 2 mL 4 MG IVP (19:15)
[2021-12-31 19:44] LABS: Basophils # 0.1 10^3/uL (0.0-0.1); Basophils % 0.4 %; Eosinophils # 0.1 10^3/uL (0.0-0.8); Eosinophils % 1.1 %; Hematocrit 39.2 % (37.0-47.0); Hemoglobin 12.8 g/dL (11.5-15.3); Lymphocytes # 1.2 10^3/uL (0.8-4.8); Mean Corpuscular HGB Conc 32.7 g/dL (30.0-36.0); Mean Corpuscular Hemoglobin 31.7 pg (28.0-34.0); Mean Platelet Volume 9.8 fL (7.4-10.4); Monocytes # 1.1 10^3/uL (0.2-0.9); Monocytes % 9.9 %; Neutrophils # 8.73 10^3/uL (1.8-7.7); Neutrophils % 77.2 %; Nucleated Red Blood Cells % 0 %; Platelet Count 215 10^3/cmm (130-400); Red Blood Count 4.04 10^6/uL (4.1-5.3); Red Cell Distribution Width 13.2 % (12.1-15.1); White Blood Count 11.3 10^3/uL (4.0-10.0)
[2021-12-31 19:55] LABS: INR 4.26 (0.8-1.2)
[2021-12-31 20:00] LABS: Lactate (Lactic Acid level) 1.2 mmol/L (0.5-2.2)
[2021-12-31 20:12] LABS: Alanine Aminotransferase 17 U/L (0-33); Alkaline Phosphatase 93 U/L (35-105); Anion Gap 14.9 (5-19); Aspartate Amino Transferase 26 U/L (0-32); Blood Urea Nitrogen 19 mg/dL (8-23); Calcium 9.4 mg/dL (8.5-10.5); Carbon Dioxide 27 mmol/L (22-29); Chloride 98 mmol/L (98-107); Globulin 3.4 g/dL (1.3-4.6); Glucose 106 mg/dL (65-115); Lipase 19 U/L (13-60); Osmolality Calculated 285 mOsm/kg (285-295); Potassium 3.9 mmol/L (3.5-5.1); Sodium 136 mmol/L (136-145); Total Bilirubin 1.1 mg/dL (0.15-1.2); Total Protein 7.4 g/dL (6.6-8.7)
[2021-12-31 20:15] VITALS: BP 133/85; PULSE 95; RESP 16; O2SAT 92
--- NOTE | 2021-12-31 20:18 | CTR_ITS ---
PROCEDURE INFORMATION: Exam: CT Abdomen And Pelvis With Contrast Exam date and time: 12/31/2021 8:32 PM Age: 76 years old Clinical indication: Abdominal pain; Generalized; Prior surgery; Surgery type: Aortic valve replacement, c section, appx, pacemaker; Additional info: Upper abd pain TECHNIQUE: Imaging protocol: Computed tomography of the abdomen and pelvis with contrast. Radiation optimization: All CT scans at this facility use at least one of these dose optimization techniques: automated exposure control; mA and/or kV adjustment per patient size (includes targeted exams where dose is matched to clinical indication); or iterative reconstruction. Contrast material: OMNIPAQUE 350; Contrast volume: 80 ml; Contrast route: INTRAVENOUS (IV); COMPARISON: CT chest abd pel w con* 12/29/2021 3:18 AM RADIATION DOSE METRICS: Total DLP (mGy-cm): 431.02 FINDINGS: Tubes, catheters and devices: Pacemaker. Lungs: Bilateral dependent atelectasis versus minimal infiltrate. Heart: Cardiomegaly. Coronary artery atherosclerotic calcifications suspected. Liver: Normal. No mass. Gallbladder and bile ducts: Normal. No calcified stones. No ductal dilation. Pancreas: Normal. No ductal dilation. Spleen: Normal. No splenomegaly. Adrenal glands: Normal. No mass. Kidneys and ureters: Right kidney cyst, negative for follow-up advised. Left kidney lower pole punctate nonobstructing calyceal stone. Stomach and bowel: Diverticulosis without diverticulitis. Appendix: No evidence of appendicitis. Intraperitoneal space: Unremarkable. No free air. No significant fluid collection. Vasculature: Unremarkable. No abdominal aortic aneurysm. Lymph nodes: Unremarkable. No enlarged lymph nodes. Urinary bladder: Unremarkable as visualized. Reproductive: Unremarkable as visualized. Bones/joints: Unremarkable. No acute fracture. Soft tissues: Unremarkable. CT/CT abdomen pelvis w con* [id number] IMPRESSION: 1. Negative for acute inflammatory process in the abdomen or pelvis. 2. Bilateral dependent atelectasis versus minimal infiltrate. 3. Cardiomegaly. 4. Pacemaker. 5. Coronary artery atherosclerotic calcifications suspected. 6. Right kidney cyst, negative for follow-up advised. 7. Diverticulosis without diverticulitis. 8. Left kidney lower pole punctate nonobstructing calyceal stone.
[2021-12-31] MEDS: iohexol 350 mg/mL 100 mL Btl IV (20:36)
[2021-12-31 20:41] LABS: Bilirubin Urine Neg (Negative); Blood Urine Neg (Negative); Glucose Urine UA Norm (Normal); Ketones Urine Negative (Negative); Leukocyte Esterase Urine Negative (Negative); Nitrate Urine Negative (Negative); Protein Urine Neg (Negative); Specific Gravity, Urine 1.015 (1.005-1.030); Urine Appearance Clear (CLEAR); Urine Color Yellow (Yellow); Urobilinogen Urine Norm (Negative); pH Urine 5 (5-7)
[2021-12-31 20:52] LABS: Add Urine Culture? No; Hyaline Casts Urine 0-4 /lpf; Squamous Epithelial Cell Urine 0-4 /hpf (0-5)
[2021-12-31 21:00] VITALS: BP 126/73; PULSE 95; RESP 16; O2SAT 95
[2021-12-31 22:28] VITALS: RESP 16; O2SAT 95
== END 2021-12-31 22:29 | disposition home or self-care (01) ==
PROVIDERS: Emergency Provider Family Medicine; PCP Family Medicine
DX: F05 Delirium due to known physiological condition (principal); R10.9 Unspecified abdominal pain; Z79.01 Long term (current) use of anticoagulants; Z79.02 Long term (current) use of antithrombotics/antiplatelets; F17.210 Nicotine dependence, cigarettes, uncomplicated; I10 Essential (primary) hypertension; Z95.0 Presence of cardiac pacemaker
CPT/HCPCS: 36415; 70450; 71045; 72125; 74018; 74177; 80053; 81000; 81001; 83605; 83690; 84443; 85025; 85610; 87040; 87086; 93005; 96374; 96375; 99285; J2270; J2405; Q9967

== ENCOUNTER 2022-01-03 13:39 | Outpatient (CLI) | payer MEDICARE, MEDICAID, SELFPAY ==
[2022-01-03 14:17] LABS: INR 4.74 (0.83-1.21); Prothrombin Time (Patient) 44.7 Seconds (12.0-15.1)
== END 2022-01-03 13:40 | disposition home or self-care (01) ==
PROVIDERS: PCP Family Medicine; Visit Provider Internal Medicine Cardiovascular Disease
DX: Z95.2 Presence of prosthetic heart valve (principal)
CPT/HCPCS: 36415; 85610

== ENCOUNTER 2022-04-03 12:22 | Outpatient (CLI) | payer MEDICARE, MEDICAID, SELFPAY ==
[2022-04-03 12:51] LABS: Prothrombin Time (Patient) 17.5 Seconds (12.0-15.1)
== END 2022-04-03 12:23 | disposition home or self-care (01) ==
LOC: LAB 12:25
PROVIDERS: PCP Family Medicine; Visit Provider Internal Medicine Cardiovascular Disease
DX: Z95.2 Presence of prosthetic heart valve (principal)
CPT/HCPCS: 85610

== ENCOUNTER → 2022-06-20 11:09 | Outpatient (BNVA) | payer MEDICARE, MEDICAID, SELFPAY | PROVIDERS: PCP Family Medicine; Visit Provider Family Medicine | DX: Z51.81 Encounter for therapeutic drug level monitoring (principal); R10.9 Unspecified abdominal pain; E03.9 Hypothyroidism, unspecified; R25.2 Cramp and spasm; R53.1 Weakness; R30.0 Dysuria | CPT/HCPCS: 80053; 81000; 83735; 84439; 84443; 85025; 86141; 87086 ==

== ENCOUNTER → 2022-07-23 14:22 | Outpatient (BNVA) | payer MEDICARE, MEDICAID, SELFPAY | PROVIDERS: PCP Family Medicine; Visit Provider Clinical Nurse Specialist Adult Health | DX: R30.0 Dysuria (principal); Z79.891 Long term (current) use of opiate analgesic | CPT/HCPCS: 81000; 87077; 87086; 87184 ==

== ENCOUNTER 2022-08-04 22:22 | Emergency (ER) | payer MEDICARE, MEDICAID, SELFPAY ==
[2022-08-04 22:29] VITALS: BP 135/83; PULSE 94; RESP 18; TEMP 36.4; O2SAT 97; BMI 26.6
--- NOTE | 2022-08-04 22:38 | ECG_ITS ---
[facility] Test Date: 2022-08-04 Pat Name: Jennifer You Department: Room: Gender: Female [employer]: : 1945 Requested By: Luis E Roger Order Number: [id number] Yarelis MD: Herminio Godfrey M.D. Measurements Intervals Williams Rate: 97 P: 0 IL: 0 QRS: -28 QRSD: 94 T: -38 QT: 345 QTc: 438 Interpretive Statements ATRIAL FIBRILLATION INCOMPLETE RIGHT BUNDLE BRANCH BLOCK [90+ ms QRS DURATION, TERMINAL R IN V1/V2, 40+ ms S IN I/aVL/V4/V5/V6] INFERIOR MYOCARDIAL INFARCTION , OF INDETERMINATE AGE [40+ ms Q WAVE AND/OR ST/T ABNORMALITY IN II/aVF] ANTEROSEPTAL MYOCARDIAL INFARCTION , OF INDETERMINATE AGE [40+ ms Q WAVE IN V1-V4] Compared to ECG 12/31/2021 19:18:44 T-wave abnormality no longer present Possible ischemia no longer present Myocardial infarct finding still present Electronically Signed On 08-05-2022 14:28:22 CDT by Herminio Godfrey M.D. [id number]
[2022-08-04 23:52] LABS: Basophils # 0.1 10^3/uL (0.0-0.1); Basophils % 0.4 %; Eosinophils # 0.2 10^3/uL (0.0-0.8); Eosinophils % 1.6 %; Hematocrit 41.1 % (37.0-47.0); Hemoglobin 12.9 g/dL (11.5-15.3); Lymphocytes # 1.7 10^3/uL (0.8-4.8); Lymphocytes % 12.6 %; Mean Corpuscular HGB Conc 31.4 g/dL (30.0-36.0); Mean Corpuscular Hemoglobin 30.7 pg (28.0-34.0); Mean Corpuscular Volume 97.9 fl (81-99); Mean Platelet Volume 9.2 fL (7.4-10.4); Monocytes # 1.1 10^3/uL (0.2-0.9); Monocytes % 7.9 %; Neutrophils # 10.64 10^3/uL (1.8-7.7); Neutrophils % 77.1 %; Nucleated Red Blood Cells % 0 %; Platelet Count 217 10^3/cmm (130-400); Red Cell Distribution Width 13.1 % (12.1-15.1); White Blood Count 13.8 10^3/uL (4.0-10.0)
--- NOTE | 2022-08-05 00:05 | ED_ITS ---
HPI - General Adult General: Chief complaint: General Medical Stated complaint: irregular heart rate, weak, feels sick Time Seen by Provider: 08/04/22 23:26 Source: patient and family Mode of arrival: wheelchair Limitations: no limitations History of Present Illness: Patient presents emergency department today accompanied by her for evaluation treatment of complaints of fatigue. Patient's complaints are relatively nonspecific but, notes continued and worsening fatigue after her previous evaluation through primary care office. Chart review shows she was seen by her primary care on 07/23 for complaints of dysuria and constipation. Patient was treated for urinary tract infection with Omnicef and, culture showed growth of E. coli with sensitivity to the cephalosporin group. She states she took all of her antibiotics as prescribed. Patient states she had resolution of her dysuria but, continues to have worsening fatigue and general ill feeling. Patient has not been vomiting but has not been hardly eating or drinking anything. She reports very minimal upper respiratory symptoms stating a few days ago she had a sore throat which has otherwise resolved. She indicated today she had an episode where she was trying to take the trash out and all of a sudden her heart started to race. Patient has a Medtronic implantable pacemaker and, continued to have symptoms of rapid heartbeat until they arrived here in the emergency department from their home. Patient reports she has taken all of her chronic medications as well as a [place] for her back pain this evening. Review of Systems General: Reports: 10 or more systems reviewed and unremarkable except in HPI and below PFS ED PFSH: Medical History (Updated 08/05/22 @ 02:49 by HOLLIS Hammonds) Arthritis, lumbar spine Atrial fibrillation Chronic atrial fibrillation Patient has history of intermittent atrial fibrillation. Chronic lumbar radiculopathy Depression Encounter for long-term opiate analgesic use History of common carotid artery stent placement Clinically stable Hypercholesterolemia Hypertension Hypothyroidism Pacemaker Spinal stenosis, lumbar region without neurogenic claudication Surgical History Aortic valve replaced 2000 H/O aortic valve replacement H/O section History of appendectomy History of back surgery History of bilateral carotid endarterectomy History of carpal tunnel surgery of left wrist History of carpal tunnel surgery of right wrist History of permanent cardiac pacemaker placement Family History Mother Dementia Father CAD (coronary artery disease) Denies family history of Diabetes Clotting disorder Chronic kidney disease (CKD) Suicide Anesthesia complication Bleeding disorder Lung disease Cancer Stroke Social History Smoking and tobacco status: current every day smoker Second hand smoke exposure: No Alcohol intake: never Substance/Drug Use: never Lives independently: Yes Household members: significant other Physical Exam Const: COMMON NORMALS: no acute distress, patient oriented x3, healthy appearing and alert HENMT: COMMON NORMALS: normocephalic, atraumatic, hearing grossly normal bilaterally, Normal external nose present and moist oral mucous membranes HEAD & SCALP: normocephalic and atraumatic NOSE: Normal external nose present Eye: COMMON NORMALS: Equal, round and reactive pupils present, EOMs intact bilaterally and conjunctivae normal CONJUNCTIVA: Yes conjunctivae normal PUPIL: Yes Equal, round and reactive pupils present Neck/C-Spine: COMMON NORMALS: full ROM, no meningeal signs and no JVD Lymph: LYMPHATIC: no lymphadenopathy noted Chest: OTHER: Palpable pacemaker in left upper chest Resp: COMMON NORMALS: normal respiratory effort, No retractions and No use of accessory muscles Cardio: COMMON NORMALS: no JVD, regular rate and Peripheral pulses 2+ throughout RATE: regular rate PERIPHERAL PULSES: Peripheral pulses 2+ throughout OTHER: Patient has loud clicking from her valve replacement : COMMON NORMALS: Yes no CVA tenderness BLADDER/KIDNEY EXAM: Yes no CVA tenderness Back/Pelvis: COMMON NORMALS: no CVA tenderness, thoraco-lumbar ROM normal and straight leg raise negative bilaterally Extremity: COMMON NORMALS: normal to inspection, full ROM, no joint enlargement and no calf tenderness GENERAL: Yes normal exam except as noted Neuro: COMMON NORMALS: patient oriented x3, CN's II-XII intact bilaterally, moves all extremities, no focal motor deficits and no sensory deficits noted SENSORIUM/ORIENTATION: Yes alert MENINGEAL SIGNS: Yes no meningeal signs Course Vital Signs: Vital signs: Vital Signs Temperature 97.5 F L 08/04/22 22:29 Pulse Rate 72 08/05/22 00:51 Respiratory Rate 14 08/05/22 00:51 Blood Pressure 111/59 08/05/22 00:51 Pulse Oximetry 96 08/05/22 00:51 Oxygen Delivery Me thod Room Air 08/05/22 00:51 MDM - General Adult Medical Decision Making Patient presented to the emergency department today for vague symptoms of fati vivek and general ill feeling. Patient's evaluation was generally unremarkable. There were no acute findings on her EKG or cardiac work-up. She had no signs of any systemic infection or anemia. Urinalysis appears somewhat contaminated but, contains no nitrites or leukocytes and is unconcerning for recurrence of UTI. We were unable to interrogate the patient's pacemaker as the Medtronic machine was not connecting to the t rail turner. However, patient's TSH was noted to be elevated. Patient has known hypothyroidism and takes levothyroxine however, explained to the patient that if her thyroid is subtherapeutic, she can have symptoms of fatigue and heart palpitations. I encouraged her to call her primary care doctor here in a few hours when the office opens to discuss her evaluation here in the emergency department including her subtherapeutic TSH level. Explained that she may require some medication adjustment and retesting of her thyroid to get her back to baseline. Patient verbalized understanding and agreement to treatment plan. Differential Diagnosis DDx: UTI, pyelonephritis, sepsis, anemia, dehydration, abnormal TSH, CT Lab Data 08/04/22 23:22 08/04/22: Laboratory Results WBC 13.8 10^3/uL (4.0-10.0) H 08/04/22: RBC 4.20 10^6/uL (4.1-5.3) 08/04/22: Hgb 12.9 g/dL (11.5-15.3) 08/04/22: Hct 41.1 % (37.0-47.0) 08/04/22: MCV 97.9 fl (81-99) 08/04/22: MCH 30.7 pg (28.0-34.0) 08/04/22: MCHC 31.4 g/dL (30.0-36.0) 08/04/22: RDW 13.1 % (12.1-15.1) 08/04/22: Plt Count 217 10^3/cmm (130-400) 08/04/22 23: MPV 9.2 fL (7.4-10.4) 04/23/23 23:22 Neut % (Auto) 77.1 % 08/04/22 23:22 Lymph % (Auto) 12.6 % 08/04/22 23:22 [place] % (Auto) 7.9 % 08/04/22 23:22 Eos % (Auto) 1.6 % 08/04/22 23:22 Baso % (Auto) 0.4 % 08/04/22 23:22 Neut # (Auto) 10.64 10^3/uL (1.8-7.7) H 08/04/22 23:22 Lymph # (Auto) 1.7 10^3/uL (0.8-4.8) 08/04/22 23:22 [place] # (Auto) 1.1 10^3/uL (0.2-0.9) H 08/04/22 23:22 Eos # (Auto) 0.2 10^3/uL (0.0-0.8) 08/04/22 23:22 Baso # (Auto) 0.1 10^3/uL (0.0-0.1) 08/04/22 23:22 Nucleated RBC % (auto) 0 % 08/04/22 23: Nucleated RBCs # 0.0 /100WBC 08/04/22 23:22 Sodium 138 mmol/L (136-145) 08/04/22 23: Potassium 4.3 mmol/L (3.5-5.1) 08/04/22 23: Chloride 102 mmol/L (98-107) 08/04/22 23:22 Carbon Dioxide 25 mmol/L (22-29) 08/04/22 23:22 Anion Gap 15.3 (5-19) 08/04/22 23:22 BUN 21 mg/dL (8-23) 08/04/22 23:22 Creatinine 1.2 mg/dL (0.5-0.9) H 08/04/22 23:22 GFR Calculation Not Reportable 08/04/22 23: Glucose 88 mg/dL (65-115) 08/04/22 23: Calculated Osmolality 288 mOsm/kg (285-295) 08/04/22 23: Calcium 9.3 mg/dL (8.5-10.5) 08/04/22 23: Magnesium 2.1 mg/dL (1.7-2.3) 08/04/22 23:22 Total Bilirubin 0.6 mg/dL (0.15-1.2) 08/04/22 23:22 AST 23 U/L (0-32) 08/04/22 23:22 ALT 18 U/L (0-33) 08/04/22 23:22 Alkaline Phosphatase 104 U/L (35-105) 08/04/22 23:22 Troponin T Baseline 21 ng/L (0-10) H 08/04/22 23:22 Troponin T 120 Minute 20.97 ng/L (0-10) H 08/05/22 02:10 Delta Troponin T -0.03 ABS# (0-10) L 08/05/22 02:10 Total Protein 6.9 g/dL (6.6-8.7) 08/04/22 23: Albumin 4.4 g/dL (3.5-5.2) 08/04/22 23: Globulin 2.5 g/dL (1.3-4.6) 08/04/22 23:22 TSH 8.06 uIU/mL (0.27-4.20) H 08/04/22 23:22 Urine Color Yellow (Yellow) 08/05/22 00:10 Urine Appearance Clear (CLEAR) 08/05/22 00:10 Urine pH 5 (5-7) 08/05/22 00:10 Ur Specific [place] 1.025 (1.005-1.030) 08/05/22 00:10 Urine Protein Trace (Negative) 08/05/22 00:10 Urine Glucose (UA) Norm (Normal) 08/05/22 00:10 Urine Ketones Negative (Negative) 08/05/22 00:10 Urine Blood Neg (Negative) 08/05/22 00:10 Urine Nitrate Negative (Negative) 08/05/22 00:10 Urine Bilirubin 1+ (Negative) H 08/05/22 00:10 Urine Urobilinogen 1 mg/dL (Negative) H 08/05/22 00:10 Ur Leukocyte Esterase Negative (Negative) 08/05/22 00:10 Urine RBC 5-10 /hpf (0-2) H 08/05/22 00:10 Urine WBC 5-10 /hpf (0-5) H 08/05/22 00:10 Ur Squamous Epith Cells 10-15 /hpf (0-5) H 08/05/22 00:10 Calcium Oxalate Crystal >100 /hpf H 08/05/22 00:10 Amorphous Sediment Not Reportable 08/05/22 00:10 Urine Bacteria 1+ /hpf (NONE) H 08/05/22 00:10 Urine Mucus 2+ /hpf 08/05/22 00:10 Discharge Plan Discharge Patient Disposition: Home Clinical Impression: Elevated TSH Condition: Stable Prescriptions: No Action multivitamin Tablet 1 tab PO DAILY sennosides-docusate sodium 8.6-50 mg tablet 1 tab-cap PO DAILY clopidogrel [Plavix] 75 mg tablet 75 mg PO DAILY cyclobenzaprine 10 mg tablet 10 mg PO TID PRN (Reason: muscle spasm) 10 Days Qty: 30 3RF cholecalciferol (vitamin D3) 25 mcg (1,000 unit) capsule 25 mcg PO DAILY cefdinir 300 mg capsule 300 mg PO Q12H Qty: 14 0RF amlodipine 5 mg tablet 5 mg PO DAILY Qty: 90 2RF warfarin 3 mg tablet 3 mg PO DIRECTED Qty: 90 3RF Protocol: Dose Management Condition: Friday Dose/Route: 3 mg Instruction: 1 x 3 mg tablet Condition: Friday Dose/Route: 2 mg Instruction: 1 x 2 mg tablet Condition: Friday Dose/Route: 2 mg Instruction: 1 x 2 mg tablet Condition: Friday Dose/Route: 3 mg Instruction: 1 x 3 mg tablet Condition: Dose/Route: 2 mg Instruction: 1 x 2 mg tablet Condition: Friday Dose/Route: 3 mg Instruction: 1 x 3 mg tablet Condition: Friday Dose/Route: 3 mg Instruction: 1 x 3 mg tablet Protocol Text: Adjustment Start Date: 08/01/22 INR Value: 2.3 INR Date: 07/29/22 Recheck Date: 08/08/22 Rx Instructions: Take 1 tab daily as directed per weekly INR results warfarin 2 mg tablet 2 mg PO DIRECTED Qty: 90 3RF Protocol: Dose Management Condition: Friday Dose/Route: 3 mg Instruction: 1 x 3 mg tablet Condition: Friday Dose/Route: 2 mg Instruction: 1 x 2 mg tablet Condition: Friday Dose/Route: 2 mg Instruction: 1 x 2 mg tablet Condition: Friday Dose/Route: 3 mg Instruction: 1 x 3 mg tablet Condition: Dose/Route: 2 mg Instruction: 1 x 2 mg tablet Condition: Friday Dose/Route: 3 mg Instruction: 1 x 3 mg tablet Condition: Friday Dose/Route: 3 mg Instruction: 1 x 3 mg tablet Protocol Text: Adjustment Start Date: 08/01/22 INR Value: 2.3 INR Date: 07/29/22 Recheck Date: 08/08/22 Rx Instructions: Take 1 tab daily as directed per weekly INR results levothyroxine 200 mcg tablet 200 mcg PO DAILY Qty: 90 1RF warfarin 1 mg tablet 1 mg PO DIRECTED Qty: 90 3RF Protocol: Dose Management Condition: Friday Dose/Route: 3 mg Instruction: 1 x 3 mg tablet Condition: Friday Dose/Route: 2 mg Instruction: 1 x 2 mg tablet Condition: Friday Dose/Route: 2 mg Instruction: 1 x 2 mg tablet Condition: Friday Dose/Route: 3 mg Instruction: 1 x 3 mg tablet Condition: Dose/Route: 2 mg Instruction: 1 x 2 mg tablet Condition: Friday Dose/Route: 3 mg Instruction: 1 x 3 mg tablet Condition: Friday Dose/Route: 3 mg Instruction: 1 x 3 mg tablet Protocol Text: Adjustment Start Date: 08/01/22 INR Value: 2.3 INR Date: 07/29/22 Recheck Date: 08/08/22 potassium chloride 20 mEq tablet extended release 20 meq PO BID@10,21 Qty: 180 3RF furosemide 40 mg tablet 40 mg PO DAILY Qty: 90 3RF lorazepam 0.5 mg tablet 0.5 mg PO BID PRN (Reason: Anxiety) Qty: 60 3RF sertraline 50 mg tablet 50 mg PO BEDTIME Qty: 90 3RF metoprolol tartrate 25 mg tablet 37.5 mg PO BID Qty: 270 3RF hydrocodone-acetaminophen 10-325 mg tablet 1 tab PO 5XD PRN (Reason: pain) 30 Days Qty: 90 0RF nitroglycerin [Nitrostat] 0.4 mg Tablet, Sublingual 0.4 mg sublingual Q5M PRN (Reason: Chest Pain) Qty: 25 0RF donepezil 5 mg Tablet 5 mg PO BEDTIME@21 cyanocobalamin (vitamin B-12) 1,000 mcg tablet 2,500 mcg PO DAILY@1000 atorvastatin 40 mg tablet 40 mg PO DAILY spironolactone 25 mg tablet 25 mg PO DAILY Discharge Orders: Discharge ED (Routine); Ordered 08/05/22 Ordered By: Agnieszka Baez Referrals: Ruy Palacio MD [Primary Care Provider] - Discharge Diet: Usual diet Discharge Activity: Increase activity as tolerated Patient Instructions: Hypothyroidism (ED) Activity Restrictions/Additional Instructions: Evaluation today here in the emergency department revealed no signs of any acute heart issues. There were no other significant findings concerning for anemia, infection, or return of urinary tract infection. Your thyroid-stimulating hormone is abnormal today and could indicate a recurrence of your hypothyroidism. We do recommend calling your doctors office later this morning to discuss your evaluation and need for follow-up to discuss your TSH levels. You may require some medication adjustment and retesting of your TSH levels through your primary care office. Coding Level of Care Code ED Net Developer Programmer for Giovani Mendosa
[2022-08-05 00:10] LABS: Alanine Aminotransferase 18 U/L (0-33); Albumin Level 4.4 g/dL (3.5-5.2); Alkaline Phosphatase 104 U/L (35-105); Anion Gap 15.3 (5-19); Aspartate Amino Transferase 23 U/L (0-32); Blood Urea Nitrogen 21 mg/dL (8-23); Calcium 9.3 mg/dL (8.5-10.5); Carbon Dioxide 25 mmol/L (22-29); Chloride 102 mmol/L (98-107); Globulin 2.5 g/dL (1.3-4.6); Glucose 88 mg/dL (65-115); Magnesium 2.1 mg/dL (1.7-2.3); Osmolality Calculated 288 mOsm/kg (285-295); Potassium 4.3 mmol/L (3.5-5.1); Sodium 138 mmol/L (136-145); Thyroid Stimulating Hormone 8.06 uIU/mL (0.27-4.20); Total Bilirubin 0.6 mg/dL (0.15-1.2); Total Protein 6.9 g/dL (6.6-8.7)
[2022-08-05 00:38] LABS: Troponin(5th) Baseline 21 ng/L (0-10)
[2022-08-05] MEDS: sodium chloride 0.9% 1,000 ML 999 ML IV (00:39)
[2022-08-05 00:51] VITALS: BP 111/59; PULSE 72; RESP 14; O2SAT 96
--- NOTE | 2022-08-05 00:52 | ECG_ITS ---
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 Measurements Intervals [place] Rate: 74 P: 0 NC: 0 QRS: -11 QRSD: 108 T: -56 QT: 406 QTc: 451 Interpretive Statements ATRIAL FIBRILLATION INCOMPLETE RIGHT BUNDLE BRANCH BLOCK [90+ ms QRS DURATION, TERMINAL R IN V1/V2, 40+ ms S IN I/aVL/V4/V5/V6] SEPTAL MYOCARDIAL INFARCTION , PROBABLY OLD [40+ ms Q WAVE IN V1/V2] MODERATE T-WAVE ABNORMALITY, CONSIDER LATERAL ISCHEMIA [-0.1+ mV T-WAVE IN I/aVL/V5/V6] Compared to ECG 12/31/2021 19:18:44 No significant changes Electronically Signed On 08-05-2022 14:33:06 CDT by Herminio Godfrey M.D. [id number]
[2022-08-05 01:07] LABS: Glucose Urine UA Norm (Normal); Protein Urine Trace (Negative); Specific Gravity, Urine 1.025 (1.005-1.030); Urine Appearance Clear (CLEAR); Urine Color Yellow (Yellow); pH Urine 5 (5-7)
[2022-08-05 01:08] LABS: Add Urine Microscopic? YES; Bilirubin Urine 1+ (Negative); Blood Urine Neg (Negative); Ketones Urine Negative (Negative); Leukocyte Esterase Urine Negative (Negative); Nitrate Urine Negative (Negative); Urobilinogen Urine 1 mg/dL (Negative)
[2022-08-05 01:15] LABS: Bacteria Urine 1+ /hpf; Calcium Oxalate Crystals Urine >100 /hpf
[2022-08-05 01:16] LABS: Mucus Urine 2+ /hpf
[2022-08-05 02:29] LABS: Troponin 5 2HR 20.97 ng/L (0-10)
[2022-08-05 02:32] LABS: Troponin 5 2HR Delta -0.03 ABS# (0-10)
[2022-08-05 03:06] VITALS: BP 110/63; PULSE 83; RESP 19; O2SAT 96
== END 2022-08-05 03:14 | disposition home or self-care (01) ==
PROVIDERS: Emergency Medicine; Emergency Provider Physician Assistant; PCP Family Medicine
DX: R94.6 Abnormal results of thyroid function studies (principal); Z79.02 Long term (current) use of antithrombotics/antiplatelets; Z79.01 Long term (current) use of anticoagulants; F17.210 Nicotine dependence, cigarettes, uncomplicated; I10 Essential (primary) hypertension; Z95.0 Presence of cardiac pacemaker
CPT/HCPCS: 36415; 80053; 81001; 83735; 84443; 84484; 85025; 93005; 96360; 99284; J7030

== ENCOUNTER → 2022-08-08 10:15 | Outpatient (BNVA) | payer MEDICARE, MEDICAID, SELFPAY | PROVIDERS: PCP Family Medicine; Visit Provider Family Medicine | DX: R30.0 Dysuria (principal); E03.9 Hypothyroidism, unspecified; R53.1 Weakness; H61.20 Impacted cerumen, unspecified ear; R79.89 Other specified abnormal findings of blood chemistry; R10.9 Unspecified abdominal pain; R35.0 Frequency of micturition | CPT/HCPCS: 87086 ==

== ENCOUNTER → 2022-11-06 14:54 | Outpatient (BNVA) | payer MEDICARE, MEDICAID, SELFPAY | PROVIDERS: PCP Family Medicine; Visit Provider Clinical Nurse Specialist Adult Health | DX: R44.3 Hallucinations, unspecified (principal) | CPT/HCPCS: 80053; 81000; 84439; 84443; 84481; 85025; 85651; 86140 ==

== ENCOUNTER 2022-12-10 13:43 | Outpatient (CLI) | payer MEDICARE, MEDICAID, SELFPAY ==
[2022-12-10 14:35] LABS: Anion Gap 14.5 (5-19); Blood Urea Nitrogen 19 mg/dL (8-23); Calcium 9.3 mg/dL (8.5-10.5); Carbon Dioxide 26 mmol/L (22-29); Chloride 103 mmol/L (98-107); Glucose 153 mg/dL (65-115); NT Pro B Type Natriuretic Pept 2398 pg/mL (0-450); Osmolality Calculated 293 mOsm/kg (285-295); Potassium 4.5 mmol/L (3.5-5.1); Sodium 139 mmol/L (136-145)
== END 2022-12-10 13:44 | disposition home or self-care (01) ==
PROVIDERS: PCP Family Medicine; Visit Provider Internal Medicine Cardiovascular Disease
DX: I10 Essential (primary) hypertension (principal); I48.20 Chronic atrial fibrillation, unspecified; Z95.2 Presence of prosthetic heart valve
CPT/HCPCS: 36415; 80048; 83880

== ENCOUNTER 2023-01-08 12:46 | Outpatient (CLI) | payer MEDICARE, MEDICAID, SELFPAY ==
--- NOTE | 2023-01-08 12:56 | XRR_ITS ---
PROCEDURE INFORMATION: Exam: XR Thoracic Spine Exam date and time: 01/08/2023 1:03 PM Age: 77 years old Clinical indication: Pain in thoracic spine; Prior surgery; Surgery date: 6+ months; Surgery type: Pacemaker; Additional info: Thoracic back pain TECHNIQUE: Imaging protocol: Radiologic exam of the thoracic spine. Views: 3 views. COMPARISON: CT thoracic spin wo con* [id number] 12/31/2019 10:48 AM FINDINGS: Bones/joints: Severe compression fracture of a mid to lower thoracic vertebral body is new since December 31, 2019. No other obvious thoracic spine fracture. Mild scoliosis. Mild and moderate multilevel thoracic spondylosis. Soft tissues: Unremarkable. XR/XR thoracic spine 3V* [id number] IMPRESSION: New severe compression fracture of a mid to lower thoracic vertebral body.
--- NOTE | 2023-01-08 12:56 | XRR_ITS ---
PROCEDURE INFORMATION: Exam: XR Lumbosacral Spine Exam date and time: 01/08/2023 1:03 PM Age: 77 years old Clinical indication: Low back pain; Prior surgery; Surgery date: 6+ months; Surgery type: Pacemaker; Additional info: Lumbar back pain TECHNIQUE: Imaging protocol: Radiologic exam of the lumbosacral spine. Views: 2 or 3 views. COMPARISON: OT XR lumbar spine 1V [id number] 01/15/2021 7:06 PM FINDINGS: Bones/joints: Mild scoliosis convex to the left. Four mm retrolisthesis L2 on L3. 6 mm anterolisthesis L4 on L5. Severe L4-L5 degenerative disc disease. Normal L5-S1 disc. Mild degenerative disc disease at all other levels. Bilateral facet osteoarthritis from the L3 level to the S1 level. No fracture. Soft tissues: Unremarkable. Vasculature: Large amount of arterial calcification. XR/XR lumbar spine 2-3V* [id number] IMPRESSION: As above.
== END 2023-01-08 12:47 | disposition home or self-care (01) ==
PROVIDERS: PCP Family Medicine; Visit Provider Family Medicine
DX: M48.062 Spinal stenosis, lumbar region with neurogenic claudication (principal); S22.008A Other fracture of unspecified thoracic vertebra, initial encounter for closed fracture; X58.XXXA Exposure to other specified factors, initial encounter; M51.36 Other intervertebral disc degeneration, lumbar region; M47.817 Spondylosis without myelopathy or radiculopathy, lumbosacral region; Z95.0 Presence of cardiac pacemaker
CPT/HCPCS: 72072; 72100

== ENCOUNTER 2023-01-24 14:23 | Outpatient (CLI) | payer MEDICARE, MEDICAID, SELFPAY ==
--- NOTE | 2023-01-24 14:30 | CT_ITS ---
WS: [id number] CT HEAD TECHNIQUE: Noncontrast and contrast-enhanced CT of the head. CLINICAL INFORMATION: Hallucinations COMPARISON: 12/31/2021 DLP: 2004.[address] scans at [facility] use at least one of these dose optimization techniques: automated e xposure control; mA and/or kV adjustment per patient size (includes targeted exams where dose is matc hed to clinical indication); or iterative reconstruction. FINDINGS: No evidence of intracranial hemorrhage or mass effect. Ventricular system and basal cisterns are rivera nt. Intracranial vascular calcification. Moderate small vessel changes. Moderate parenchymal volume l oss. Mild mucosal thickening in the ethmoid air cells. Bilateral mastoid sclerosis. Mucosal thickenin g RIGHT mastoid tip. No abnormal intracranial enhancement. IMPRESSION: 1. No evidence of intracranial hemorrhage or mass effect. 2. Moderate small vessel changes. Moderate parenchymal volume loss. 3. No abnormal intracranial enhancement. 4. Intracranial vascular calcification.
[2023-01-24] MEDS: iohexol 350 mg/mL 500 mL Btl (per mL) IV (14:56)
== END 2023-01-24 14:24 | disposition home or self-care (01) ==
LOC: RAD 14:24
PROVIDERS: PCP Family Medicine; Visit Provider Family Medicine
DX: R44.3 Hallucinations, unspecified (principal); I67.2 Cerebral atherosclerosis
CPT/HCPCS: 70470; Q9967

== ENCOUNTER 2023-03-29 01:01 | Inpatient (IN) | payer MEDICARE, MEDICAID, SELFPAY ==
[2023-03-29] VITALS (14 sets, daily range): BP systolic 106–167; BP diastolic 61–88; PULSE 73–118; RESP 15–20; TEMP 36.4–37.2; O2SAT 90–98; BMI 29.9
--- NOTE | 2023-03-29 02:07 | ED_ITS ---
HPI - Fall 2 General: Chief Complaint: Fall Stated Complaint: fall, hip pain Time Seen by Provider: 03/29/23 01:07 History of Present Illness: 77-year-old female presents emergency de partment via EMS personnel secondary to a slip and fall this morning at her house. She had an accidental trip when she caught her foot on a new rug that was placed in her home. She denies loss of consciousness. She states she attempted to get up after she fell but was unable to stand or bear weight. She states her pain is currently a 9 out of 10 sharp aching and throbbing. Review of Systems 2 General: Reports: 10 or more systems reviewed and unremarkable except in HPI and below Musc: Reports: extremity pain and joint pain PFSH ED 2 PFSH: Medical History Arthritis, lumbar spine Atrial fibrillation Chronic atrial fibrillation Patient has history of intermittent atrial fibrillation. Chronic lumbar radiculopathy Depression Encounter for long-term opiate analgesic use History of common carotid artery stent placement Clinically stable Hypercholesterolemia Hypertension Hypothyroidism Pacemaker Spinal stenosis, lumbar region without neurogenic claudication Surgical History Aortic valve replaced 2000 H/O aortic valve replacement H/O section History of appendectomy History of back surgery History of bilateral carotid endarterectomy History of carpal tunnel surgery of left wrist History of carpal tunnel surgery of right wrist History of permanent cardiac pacemaker placement Family History Mother Dementia Father CAD (coronary artery disease) Denies family history of Diabetes Clotting disorder Chronic kidney disease (CKD) Suicide Anesthesia complication Bleeding disorder Lung disease Cancer Stroke Social History Smoking and tobacco/nicotine status: current every day tobacco/nicotine user Second hand smoke exposure: No Alcohol intake: never Substance/Drug Use: never Lives independently: Yes Household members: significant other Physical Exam 2 Narrative: EXAM NARRATIVE: Constitutional: the patient appears well nourished and with normal development. Vital signs reviewed as documented. HENMT: Normocephalic, atraumatic. Extermal ears with normal appearance without drainage. Nose without drainage, normal appearance. Mucus membranes moist. Neck is supple, No jugular venous distension, trachea is midline, no appreciable carotid bruits. No lymphadenopathy. No meningeal signs. Flexion, extension and lateral rotation is without pain. Eyes: Pupils are equal, round, reactive to light and accommodation. No scleral icterus. Extra-ocular movement are intact. Thorax is symmetrical and with equal rise and fall with respirations. Resp: Lungs are clear to auscultation. No wheezes, rales, crackles or ronchi at present. Cardio: Regular rate and rhythm. Positive S1, S2. No appreciable murmurs, rubs or gallops. GI: Abdominal exam reveals normal bowel sounds to all quadrants. No organomegaly. No obvious palpable masses noted. No hepatomegally appreciated. Soft, nontender to palpation. Extremity: Extremities are non-edematous and both femoral and pedal pulses are 2+ and equal bilaterally. Left hip tender to palpation increased pain with attempts of ad adduction or abduction flexion or extension. Remainder of the extremities with sensation intact and no difficulties with movement. Neuro: Alert and oriented x4, person, place, time and situation. Cranial nerves II through XII are grossly intact, there is no focal neurological deficits that I can appreciate at present. Motor strength in the upper and lower extremities are equal and bilateral 5/5. Psych: Cooperative, calm, normal thought process, appropriate judgment. Skin: No lesions, rashes. No gross abnormalities noted. Back: Symmetrical, no obvious deformity, No CVA tenderness Course 2 Vital Signs: Vital signs: Vital Signs Temperature 98.2 F 03/29/23 01:04 Pulse Rate 109 H 03/29/23 05:42 Respiratory Rate 18 03/29/23 03:41 Blood Pressure 145/76 03/29/23 05:42 Pulse Oximetry 90 03/29/23 05:42 Oxygen Delivery Me thod Nasal Cannula 03/29/23 05:42 Oxygen Flow Rate 2 03/29/23 04:51 MDM - Fall Medical Decision Making Physical exam completed and documented I will obtain a CBC as well as a CMP PT PTT INR Place a [place] catheter and obtain a CT scan abdomen pelvis as I suspect the patient has a left hip fracture. I will consult the orthopedic physician as well as the hospitalist for admission for additional evaluation treatment and care. Medical Records I reviewed the patient's medical records. Lab Data I reviewed the patient's lab results. 03/29/23 02:20 03/29/23 02:20 Radiology Impressions Abdomen/Pelvis CT 03/29/23 02:10 IMPRESSION: 1. Acute left hip fracture. 2. Negative for abdominopelvic visceral injury. Laboratory Results WBC 13.99 10^3/uL (3.29-11.43) H 03/29/23 02:20 RBC 4.01 10^6/uL (3.85-5.65) 03/29/23 02:20 Hgb 12.20 g/dL (11.27-16.99) 03/29/23 02:20 Hct 37.5 % (36-47) 03/29/23 02:20 MCV 93.5 fl (85-98) 03/29/23 02:20 MCH 30.4 pg (27-33) 03/29/23 02:20 MCHC 32.5 g/dL (30-55) 03/29/23 02:20 RDW 13.4 % (12.1-15.1) 03/29/23 02:20 Plt Count 195 10^3/cmm (157-399) 03/29/23 02:20 MPV 9.5 fL (7.4-10.4) 03/29/23 02:20 Neut % (Auto) 87.0 % 03/29/23 02:20 Lymph % (Auto) 6.4 % 03/29/23 02:20 [place] % (Auto) 5.8 % 03/29/23 02:20 Eos % (Auto) 0.1 % 03/29/23 02:20 Baso % (Auto) 0.1 % 03/29/23 02:20 Neut # (Auto) 12.16 10^3/uL (1.8-7.7) H 03/29/23 02:20 Lymph # (Auto) 0.9 10^3/uL (0.8-4.8) 03/29/23 02:20 [place] # (Auto) 0.8 10^3/uL (0.2-0.9) 03/29/23 02:20 Eos # (Auto) 0.0 10^3/uL (0.0-0.8) 03/29/23 02:20 Baso # (Auto) 0.0 10^3/uL (0.0-0.1) 03/29/23 02:20 Nucleated RBC % (auto) 0 % 03/29/23 02:20 Nucleated RBCs # 0.0 /100WBC 03/29/23 02:20 PT 31.90 SECONDS (12.1-14.9) H 03/29/23 02:20 INR 2.96 (0.8-1.2) H 03/29/23 02:20 APTT 31.7 SECONDS (23.9-36.7) 03/29/23 02:20 Sodium 140 mmol/L (136-145) 03/29/23 02:20 Potassium 4.6 mmol/L (3.5-5.1) 03/29/23 02:20 Chloride 103 mmol/L (98-107) 03/29/23 02:20 Carbon Dioxide 29 mmol/L (22-29) 03/29/23 02:20 Anion Gap 12.6 (5-19) 03/29/23 02:20 BUN 20 mg/dL (8-23) 03/29/23 02:20 Creatinine 1.0 mg/dL (0.5-0.9) H 03/29/23 02:20 GFR Calculation Not Reportable 03/29/23 02:20 Glucose 139 mg/dL (65-115) H 03/29/23 02:20 Calculated Osmolality 295 mOsm/kg (285-295) 03/29/23 02:20 Calcium 9.7 mg/dL (8.5-10.5) 03/29/23 02:20 Total Bilirubin 0.7 mg/dL (0.15-1.2) 03/29/23 02:20 AST 29 U/L (0-32) 03/29/23 02:20 ALT 26 U/L (0-33) 03/29/23 02:20 Alkaline Phosphatase 85 U/L (35-105) 03/29/23 02:20 Total Protein 7.0 g/dL (6.6-8.7) 03/29/23 02:20 Albumin 4.1 g/dL (3.5-5.2) 03/29/23 02:20 Globulin 2.9 g/dL (1.3-4.6) 03/29/23 02:20 All radiology interpretation(s) finalized by discharge Discharge Plan Discharge Patient Disposition: Admitted As Inpatient Clinical Impression: Closed fracture of left hip Qualifiers: Encounter type: initial encounter Qualified Code(s): S72.002A - Fracture of unspecified part of neck of left femur, initial encounter for closed fracture Condition: Stable Coding Level of Care Code ED Sed Special Education Teacher for Giovani Mendosa
--- NOTE | 2023-03-29 02:10 | CTR_ITS ---
PROCEDURE INFORMATION: Exam: CT Abdomen And Pelvis Without Contrast Exam date and time: 03/29/2023 2:28 AM Age: 77 years old Clinical indication: Injury or trauma; Fall; Blunt; Generalized; Prior surgery; Surgery date: 6+ months; Surgery type: Pacer. Aortic valve. Appy. Csection. Patient HX: Patient tripped on a rug and fell on the floor at home. C/O back and left hip pain. ; Additional info: Fall/trauma TECHNIQUE: Imaging protocol: Computed tomography of the abdomen and pelvis without contrast. Radiation optimization: All CT scans at this facility use at least one of these dose optimization techniques: automated exposure control; mA and/or kV adjustment per patient size (includes targeted exams where dose is matched to clinical indication); or iterative reconstruction. REPORTING DATA: Count of CT and Cardiac NM exams in prior 12 months: This patient has received [address] and 0 known cardiac nuclear medicine studies in the 12 months prior to the current study. COMPARISON: CT abdomen pelvis w con* [id number] 12/31/2021 8:32 PM RADIATION DOSE METRICS: Total DLP (mGy-cm): 565.67 FINDINGS: Tubes, catheters and devices: ICD lead within the right heart chambers. Heart: Mild severity multichamber cardiac dilation. Liver: Normal. No mass. Gallbladder and bile ducts: Normal. No calcified stones. No ductal dilation. Pancreas: Atrophic pancreas. No focal lesion. Negative for injury. Spleen: Normal. No splenomegaly. Adrenal glands: Normal. No mass. Kidneys and ureters: Simple cyst in the posterior lower right kidney is mildly increased in size from comparison measuring 3.3 cm diameter; 2.6 cm previous. No internal complexity is identified on noncontrast imaging. Negative for renal injury. Negative hydronephrosis. Small nonobstructing left kidney lower pole stone. Stomach and bowel: Unremarkable. No obstruction. No mucosal thickening. Appendix: No evidence of appendicitis. Intraperitoneal space: Unremarkable. No free air. No significant fluid collection. Vasculature: Diffuse abdominal aorta atherosclerosis without aneurysm. Lymph nodes: Unremarkable. No enlarged lymph nodes. Urinary bladder: Unremarkable as visualized. Reproductive: Unremarkable as visualized. Bones/joints: Angulated acute fracture deformity of the left femoral neck. Demineralized bones. Negative for hip dislocation. Unremarkable pelvic ring alignment. Negative for acute lumbar spine fracture. Slight grade 1 L4-L5 spondylolisthesis. Severe L4-L5 disc disease changes. Soft tissues: Minimal superficial contusion pattern lateral to the left hip. CT/CT abdomen pelvis wo con [id number] IMPRESSION: 1. Acute left hip fracture. 2. Negative for abdominopelvic visceral injury.
[2023-03-29 02:44] LABS: Basophils % 0.1 %; Eosinophils % 0.1 %; Hematocrit 37.5 % (36-47); Lymphocytes # 0.9 10^3/uL (0.8-4.8); Lymphocytes % 6.4 %; Mean Corpuscular HGB Conc 32.5 g/dL (30-55); Mean Corpuscular Hemoglobin 30.4 pg (27-33); Mean Corpuscular Volume 93.5 fl (85-98); Mean Platelet Volume 9.5 fL (7.4-10.4); Monocytes # 0.8 10^3/uL (0.2-0.9); Monocytes % 5.8 %; Neutrophils # 12.16 10^3/uL (1.8-7.7); Nucleated Red Blood Cells % 0 %; Platelet Count 195 10^3/cmm (157-399); Red Blood Count 4.01 10^6/uL (3.85-5.65); Red Cell Distribution Width 13.4 % (12.1-15.1); White Blood Count 13.99 10^3/uL (3.29-11.43)
[2023-03-29 02:48] LABS: INR 2.96 (0.8-1.2); Partial Thromboplastin Time 31.7 SECONDS (23.9-36.7)
[2023-03-29 02:57] LABS: Alanine Aminotransferase 26 U/L (0-33); Albumin Level 4.1 g/dL (3.5-5.2); Alkaline Phosphatase 85 U/L (35-105); Anion Gap 12.6 (5-19); Aspartate Amino Transferase 29 U/L (0-32); Blood Urea Nitrogen 20 mg/dL (8-23); Calcium 9.7 mg/dL (8.5-10.5); Carbon Dioxide 29 mmol/L (22-29); Chloride 103 mmol/L (98-107); Globulin 2.9 g/dL (1.3-4.6); Glucose 139 mg/dL (65-115); Osmolality Calculated 295 mOsm/kg (285-295); Potassium 4.6 mmol/L (3.5-5.1); Sodium 140 mmol/L (136-145); Total Bilirubin 0.7 mg/dL (0.15-1.2)
[2023-03-29] MEDS: HYDROmorphone 1 mg/mL INJ 1 mL IVP (03:41)
--- NOTE | 2023-03-29 04:58 | PC.NURSE ---
Rounding with patient and found her sitting up in bed with legs off the side. SO in room sitting on stool in front of her. Pt states that she just thought it was time to try and get up. Advised pt to remain in the bed. Still pending her ct scan results. Education to SO to not encourage patient to try and walk until the doctor clears her.
--- NOTE | 2023-03-29 07:54 | P.HP_ITS ---
Providers/Chief Complaint 2 Admitting Physician: Radha Cole MD Primary Care Provider: Ruy Palacio MD Chief Complaint: fall, hip pain History of Present Illness Jennifer You is a 77 year old female present to the hospital after sustaining a fall. Patient is stating that she was going towards the kitchen around 11 PM when she lost her balance and fell on the floor, she is attributing her fall to the rug in her dining area, she did not lose consciousness, no chest pain or shortness of breath. Patient is on Coumadin for her A-fib,. Her INR is 2.9 At the time of evaluation patient is documented with knee pain, Juarez catheter is in place, I have spoken with Dr. Arzola as well to update her about her Coumadin use along Plavix and INR. Review of Systems 2 Const: Denies: fever(s) Eyes: Denies: change in vision ENMT: Denies: throat pain Card: Denies: chest pain Resp: Denies: dyspnea GI: Denies: abdominal pain : Denies: flank pain Musc: Denies: neck pain Skin/Breast: Denies: rash Neuro: Denies: headache(s) Psych: Reports: anxiety Medications/Allergies Home Medications Medication Instructions Recorded Confirmed Last Taken Type nitroglycerin 0.4 mg sublingual 0.4 mg sublingual Q5M PRN Chest 04/16/19 01/08/23 Unknown Rx tablet (Nitrostat) Pain #25 tabs multivitamin 1 tab PO DAILY 02/08/21 01/08/23 12/31/21 History sennosides 8.6 mg-docusate sodium 1 tab-cap PO DAILY 02/08/21 01/08/23 12/31/21 History 50 mg tablet warfarin 2 mg tablet 2 mg PO DIRECTED #90 tabs 12/14/21 01/08/23 Unknown Rx cyclobenzaprine 10 mg tablet 10 mg PO TID PRN muscle spasm 01/02/22 01/08/23 Unknown Rx days #30 tabs cholecalciferol (vitamin D3) 25 25 mcg PO DAILY 06/20/22 01/08/23 Unknown History mcg (1,000 unit) capsule cyanocobalamin (vitamin B-12) 2,500 mcg PO DAILY@1000 06/20/22 01/08/23 Unknown History 1,000 mcg tablet metoprolol tartrate 25 mg tablet 37.5 mg (1.5 x 25 mg) PO BID #270 06/25/22 01/08/23 Unknown Rx tabs amlodipine 5 mg tablet 5 mg PO DAILY #90 tabs 09/23/22 01/08/23 Unknown Rx clopidogrel 75 mg tablet (Plavix) 75 mg PO DAILY #90 tabs 09/23/22 01/08/23 Unknown Rx levothyroxine 200 mcg tablet 200 mcg PO DAILY #90 tabs 09/23/22 01/08/23 Unknown Rx spironolactone 25 mg tablet 25 mg PO DAILY #90 tabs 09/24/22 01/08/23 Unknown Rx warfarin 1 mg tablet 1 mg PO DIRECTED #90 tabs 12/02/22 01/08/23 Unknown Rx atorvastatin 40 mg tablet See Rx Instructions .Route 12/18/22 01/08/23 Unknown Rx .COMPLEX #90 tabs furosemide 40 mg tablet 40 mg PO BID #180 tabs 12/25/22 01/08/23 Unknown Rx potassium chloride 20 mEq 20 meq PO BID@10,21 #180 tabs 12/27/22 01/08/23 Unknown Rx tablet,extended release warfarin 3 mg tablet 3 mg PO DIRECTED #90 tabs 02/26/23 Unknown Rx hydrocodone 10 mg-acetaminophen 1 tab PO 5XD PRN pain 30 days #90 03/27/23 Unknown Rx 325 mg tablet tabs Allergies Allergy/AdvReac Type Severity Reaction Status Date / Time No Known Allergies Allergy Verified 08/08/22 08:53 PFSH Acute 2 PFSH: Medical History Pacemaker Chronic atrial fibrillation Patient has history of intermittent atrial fibrillation. History of common carotid artery stent placement Clinically stable Arthritis, lumbar spine Chronic lumbar radiculopathy Spinal stenosis, lumbar region without neurogenic claudication Encounter for long-term opiate analgesic use Depression Hypercholesterolemia Hypothyroidism Hypertension Atrial fibrillation Surgical History History of back surgery History of permanent cardiac pacemaker placement Aortic valve replaced 2000 H/O section History of appendectomy History of carpal tunnel surgery of right wrist History of carpal tunnel surgery of left wrist H/O aortic valve replacement History of bilateral carotid endarterectomy Family History Mother Dementia Father CAD (coronary artery disease) Denies family history of Diabetes Clotting disorder Chronic kidney disease (CKD) Suicide Anesthesia complication Bleeding disorder Lung disease Cancer Stroke Social History Smoking and tobacco/nicotine status: current every day tobacco/nicotine user Second hand smoke exposure: No Alcohol intake: never Substance/Drug Use: never Lives independently: Yes Household members: significant other Vitals/I&O/Wt Last Vital Signs Temp 98.2 F 03/29/23 01:04 Pulse 118 H 03/29/23 06:07 Resp 18 03/29/23 06:07 BP 153/88 03/29/23 06:07 Pulse Ox 95 03/29/23 06:07 O2 Del Method Nasal Cannula 03/29/23 05:42 O2 Flow Rate 2 03/29/23 04:51 Weight last 48 hrs Weight 72.212 kg Weight 81.647 kg Physical Exam 2 Narrative: Awake and alert GCS 15 Dehydrated Nonfocal neuroexam Juarez catheter in place Left leg is not short or rotated outwards No vascular compromise GCS 15 Pleasant at the bedside S1, S2 Urinary Catheter Management: Juarez: Cath Placed During This Visit: yes Reason for Continuing Indwelling Catheter: Required Immobilization for Trauma or Surgery or Anesthesia Urinary Catheter Date of Insertion: 03/29/23 Urinary Catheter Time of Insertion: 05:42 Data 03/29/23 02:20 03/29/23 02:20 A&P Assessment and plan (1) Hip fracture, left: Plan Hip fracture after sustaining a fall at home Patient has history of A-fib status post pacemaker, on Coumadin and Plavix I will hold her Plavix and Coumadin INR is 2.9 we will give her vitamin K 10 mg along 1 unit FFP Repeat INR tomorrow No plan for surgery today because of her coagulopathy Will keep her on metoprolol, cardiac diet Opioids along bowel regimen Continue levothyroxine I will give her gentle fluid because clinically she looks dehydrated hold Lasix for now Check B12 level DVT prophylaxis: SCDs Repeat INR in the morning Attestations 2 Medical Necessity Statement*: More than 2 midnights anticipated Diagnoses Hip fracture, left S72.149Z
[2023-03-29] MEDS: morphine IR 15 mg Tablet PO (08:52)
[2023-03-29] MEDS: amlodipine 10 mg Tablet PO ×2 (08:53→09:04)
[2023-03-29] MEDS: sennosides-docusate Tablet 1 TAB PO (08:53)
[2023-03-29] MEDS: sodium chloride 0.9% 1,000 ML 75 ML IV (08:53)
--- NOTE | 2023-03-29 09:01 | XRR_ITS ---
PROCEDURE INFORMATION: Exam: XR Left Hip Exam date and time: 03/29/2023 9:23 AM Age: 77 years old Clinical indication: Injury or trauma; Fall; Blunt trauma (contusions or hematomas); Left; Hip; Additional info: Left hip fracture, with pelvis TECHNIQUE: Imaging protocol: Radiologic exam of the left hip. Views: 2 or 3 views hip with pelvis when performed. COMPARISON: CT abdomen pelvis wo con [id number] 03/29/2023 2:28 AM FINDINGS: Bones/joints: The bones are osteopenic which limits sensitivity for radiography. There is a fracture of the left femoral neck. Soft tissues: Unremarkable. XR/XR hip LT 2-3V wo/w pel* [id number] IMPRESSION: Fracture left femoral neck.
[2023-03-29] MEDS: phytonadione (ADULT) 10 MG in sodium chloride 0.9% 50 ML 153 MG IV (09:04)
--- NOTE | 2023-03-29 09:08 | PC.PHAR ---
pt states [facility] sets up meds at home. Verified all medications with pharmacy 03/29/23
[2023-03-29] MEDS: metoprolol tartrate 50 mg Tablet PO ×2 (10:25→21:02)
[2023-03-29] MEDS: levothyroxine 200 mcg Tablet PO (10:25)
[2023-03-29] MEDS: acetaminophen 500 mg Tablet PO (10:56)
--- NOTE | 2023-03-29 11:34 | USCV_ITS ---
Jennifer You Age: 77 Gender: F : 1945 Exam Date: 03/29/2023 17:46 Ordering Phys: Leon Hillman MD Technologist: Fei Sexton Exam Location: [facility] [place] Indication: chf aortic valve replacement BP: 134 / 79 HR: 84 Rhythm: Sinus Technical Quality: Adequate MEASUREMENTS (Male / Female) Normal Values 2D ECHO LVOT Diameter 2.0 cm LV Ejection Fraction MOD 2C 62.5 % LV Ejection Fraction 2C AL 65.1 % LA Diameter 3.8 cm LA Width 3.8 cm LA Height 6.0 cm RA Width 3.9 cm RA Height 5.7 cm Aorta at Sinotubular Diameter 1.7 cm IVC Diameter 2.4 cm M-MODE Aortic Annulus Diameter 2.3 cm LA Ao Ratio MM 1.7 MV E Point Septal Separation 0.3 cm DOPPLER AV Peak Velocity 267.0 cm/s LVOT Peak Velocity 99.0 cm/s AV Area Cont Eq vti 1.0 cm squared AV Area Cont Eq pk 1.2 cm squared MV Peak Velocity 165.0 cm/s MV Area PHT 5.9 cm squared Mitral E to A Ratio 2.5 MV E' Velocity 66.5 cm/s Mitral E to MV E' Ratio 8.8 Mitral E to LV E' Lateral Ratio 9.5 Mitral E to LV E' Septal Ratio 8.3 TR Peak Velocity 332.9 cm/s TR Peak Gradient 44.3 mmHg TR Mean Velocity 263.9 cm/s TR Mean Gradient 29.9 mmHg TR Velocity Time Integral 86.1 cm Right Atrial Pressure 15.0 mmHg Pulmonary Artery Systolic Pressu 59.3 mmHg PV Peak Velocity 104.7 cm/s RV Acceleration Time 0.1 s RV Ejection Time 0.2 s RV AcT/ET 0.3 FINDINGS Left Ventricle Normal left ventricular size and systolic function, EF 65 %. Mild left ventricular hypertrophy. No regional wall motion abnormalities. Right Ventricle Normal right ventricular size and systolic function. Right Atrium Mildly increased right atrial size. Left Atrium Moderately increased left atrial size. Mitral Valve Mild mitral annular calcification. Aortic Valve The prosthetic valve the aortic position appears to be well- seated. Peak velocity of 2.81 m/s with a peak gradient of 32 and mean gradient of 19 mmHg. Calculated valve area 0.89 cm squared Tricuspid Valve Moderate tricuspid valve regurgitation. Moderate pulmonary hypertension with an estimated pulmonary artery peak systolic pressure of 59 mmHg Pulmonic Valve Pulmonic valve not well visualized. Pericardium No pericardial effusion. Aorta Normal aortic annulus size. IVC Dilated IVC with decreased respiratory variation. CONCLUSIONS Normal left ventricular size and systolic function, EF 65 %. Mild left ventricular hypertrophy. No regional wall motion abnormalities. Moderate left atrial enlargement. Mild right atrial enlargement The prosthetic valve the aortic position appears to be well- seated. The peak velocity across the valve is 2.81 m/s with a peak gradient gradient of 32 and a mean gradient of 19 mmHg. The calculated aortic valve area of 0.89 cm squared. Mild mitral annular calcification. Moderate tricuspid valve regurgitation. Moderate pulmonary hypertension with an estimated pulmonary artery peak systolic pressure of 59 mmHg. There is no pericardial effusion. There are no intracardiac masses. Compared to the study from 04/15/2019, peak velocity and the mean gradient across the valve has not changed. However the calculated valve area appears to have decreased from 1 cm squared to 0.89 cm squared. The features may suggest a normal flow, low gradient aortic valve stenosis Dr Phan Steward MD FACC (Electronically Signed) Final Date: 29 March 2023 19:34 S
[2023-03-29] MEDS: amlodipine 5 mg Tablet PO (12:22)
[2023-03-29] MEDS: HYDROcodone-acetaminophen 10-325 mg Tablet 1 TAB PO ×2 (12:22→17:46)
[2023-03-29 12:37] LABS: Iron 74 ug/dL (37-145); Percent Saturation 23.6 % (20-50); Total Iron Binding Capacity 313 mcg/dl; Unsaturated Iron Binding 239 ug/dL (112-347); Vitamin B12 1170 pg/mL (232-1245)
[2023-03-29 12:40] LABS: Partial Thromboplastin Time 31.3 SECONDS (23.9-36.7)
[2023-03-29] MEDS: heparin drip 25,000 UNIT/500 ML PREMIX 20 UNIT IV (13:22)
--- NOTE | 2023-03-29 16:04 | PM.MISC ---
Miscellaneous Note Purpose of Documentation: Cross coverage note Note: Admitted overnight. Today labs appreciated. Seen with family at bedside. Complaining of pain. As per the patient and daughter patient has chronic back pain for which she takes Boykins 10 mg once or twice a day. She has been prescribed up to 5 times a day. Patient has a history of aortic valve replacement with a mechanical valve. She is on Coumadin for the same with target INR of 2.5-3.5. Patient received vitamin K earlier today morning. Plan: Hold off on FFP for now. Start on heparin drip. Monitor hemoglobin. Restart home dose of pain medications. Goal blood pressure less than 140/90 mmHg. Continue with metoprolol 50 mg twice daily. Restart home dose of amlodipine 5 mg daily. Repeat INR in afternoon and then earlier tomorrow morning. If INR more than 1.5 can plan to give 2 units of FFP. Stop heparin drip as per orthopedic team preoperatively. Restart home dose of donepezil. Other Coding Information Prolonged care (total time indicated above or notated here) Managing INR, starting heparin drip in setting of mechanical aortic valve post vitamin K, pain control Medical Necessity Statement: Patient requires hospitalization for ORIF for management of hip fracture, reinitiation of anticoagulation as NEEDS bridging with coumadin
--- NOTE | 2023-03-29 17:17 | P.CONIM_ITS ---
Providers/Reason For Consult 2 Consulting Physician/Specialty*: Dr. Leisa Arzloa - Orthopedics Reason for Consult*: Left subcapital hip fracture Requesting Physician: Dr. Maurisio Simons Attending Physician: Leon Hillman MD Primary Care Provider: Ruy Palacio MD History of Present Illness History of Present Illness Jennifer You is a 77 year old female who was in her usual state of health where she lives with her significant other in her own home. The patient was going into the kitchen around 11 PM, and she lost her balance and fell to the floor. She states that she slipped on a rug in her dining area. She denies loss of consciousness, chest pain, shortness of breath, or other issue of concern. The patient has A-fib and is on both Plavix and Coumadin. Review of Systems 2 General: Reports: 10 or more systems reviewed and unremarkable except in HPI and below Const: Denies: fever(s) Eyes: Denies: change in vision or photophobia ENMT: Denies: throat pain Card: Denies: chest pain Resp: Denies: dyspnea GI: Denies: abdominal pain : Denies: flank pain Musc: Reports: extremity pain and joint pain; Denies: neck pain or joint warmth Skin/Breast: Denies: rash Neuro: Denies: headache(s) Psych: Reports: anxiety All/Imm: Denies: acute wheezing Medications/Allergies Home Medications Medication Instructions Recorded Confirmed Last Taken Type nitroglycerin 0.4 mg sublingual 0.4 mg sublingual Q5M PRN Chest 04/16/19 03/29/23 Unknown Rx tablet (Nitrostat) Pain #25 tabs multivitamin 1 tab PO DAILY 02/08/21 03/29/23 03/28/23 History sennosides 8.6 mg-docusate sodium 1 tab PO DAILY 02/08/21 03/29/23 03/28/23 History 50 mg tablet warfarin 2 mg tablet 2 mg PO DIRECTED #90 tabs 12/14/21 03/29/23 Unknown Rx cyclobenzaprine 10 mg tablet 10 mg PO TID PRN muscle spasm 10 01/02/22 03/29/23 Unknown Rx days #30 tabs cholecalciferol (vitamin D3) 25 25 mcg PO DAILY 06/20/22 03/29/23 03/28/23 History mcg (1,000 unit) capsule cyanocobalamin (vitamin B-12) 2,500 mcg PO DAILY@1000 06/20/22 03/29/23 03/28/23 History 1,000 mcg tablet metoprolol tartrate 25 mg tablet 37.5 mg (1.5 x 25 mg) PO BID #270 06/25/22 03/29/23 03/28/23 Rx tabs amlodipine 5 mg tablet 5 mg PO DAILY #90 tabs 09/23/22 03/29/23 03/28/23 Rx clopidogrel 75 mg tablet (Plavix) 75 mg PO DAILY #90 tabs 09/23/22 03/29/23 03/28/23 Rx levothyroxine 200 mcg tablet 200 mcg PO DAILY #90 tabs 09/23/22 03/29/23 03/28/23 Rx spironolactone 25 mg tablet 25 mg PO DAILY #90 tabs 09/24/22 03/29/23 03/28/23 Rx warfarin 1 mg tablet 1 mg PO DIRECTED #90 tabs 12/02/22 03/29/23 Unknown Rx furosemide 40 mg tablet 40 mg PO BID #180 tabs 12/25/22 03/29/23 03/28/23 Rx potassium chloride 20 mEq 20 meq PO BID@10, #180 tabs 12/27/22 03/29/23 03/28/23 Rx tablet,extended release warfarin 3 mg tablet 3 mg PO DIRECTED #90 tabs 02/26/23 03/29/23 Unknown Rx hydrocodone 10 mg-acetaminophen 1 tab PO 5XD PRN pain 30 days #90 03/27/23 03/29/23 03/28/23 Rx 325 mg tablet tabs atorvastatin 40 mg tablet 40 mg PO DAILY 03/29/23 03/29/23 03/28/23 History donepezil 5 mg tablet 5 mg PO DAILY 03/29/23 03/29/23 03/28/23 History Allergies Allergy/AdvReac Type Severity Reaction Status Date / Time No Known Allergies Allergy Verified 08/08/22 08:53 Current Medications Generic Name Dose Route Start Last Admin Trade Name Freq PRN Reason Stop Dose Admin Acetaminophen 500 mg 03/29/23 07:56 03/29/23 10:56 Acetaminophen 500 Mg Tablet PO 500 mg Q4H PRN Administration fever Hydrocodone Bitart/Acetaminophen 1 tab 12/16/23 11:34 03/29/23 12:22 Hydrocodone-Acetaminophen 10-325 Mg Tablet PO 1 tab TID PRN Administration Breakthrough pain Amlodipine Besylate 5 mg 03/29/23 11:15 03/29/23 12:22 Amlodipine 5 Mg Tablet PO 5 mg DAILY ROSE Administration Heparin Sodium/Sodium Chloride 25,000 unit in 500 mls @ 0 mls/hr 03/29/23 11:15 03/29/23 13:22 Heparin Drip IV 13.85 unit/kg/hr .Q0M ROSE 20 mls/hr Administration Protocol Per Protocol Levothyroxine Sodium 200 mcg 03/29/23 09:00 03/29/23 10:25 Levothyroxine 200 Mcg Tablet PO 200 mcg DAILY ROSE Administration Metoprolol Tartrate 50 mg 03/29/23 08:10 03/29/23 10:26 Metoprolol Tartrate 50 Mg Tablet PO Not Given BID@0900,2100 ROSE Senna/Docusate Sodium 1 tab 03/29/23 09:00 03/29/23 08:53 Sennosides-Docusate Tablet PO 1 tab DAILY ROSE Administration PFSH Acute 2 PFSH: Medical History Pacemaker Chronic atrial fibrillation Patient has history of intermittent atrial fibrillation. History of common carotid artery stent placement Clinically stable Arthritis, lumbar spine Chronic lumbar radiculopathy Spinal stenosis, lumbar region without neurogenic claudication Encounter for long-term opiate analgesic use Depression Hypercholesterolemia Hypothyroidism Hypertension Atrial fibrillation Surgical History History of back surgery History of permanent cardiac pacemaker placement Aortic valve replaced 2000 H/O section History of appendectomy History of carpal tunnel surgery of right wrist History of carpal tunnel surgery of left wrist H/O aortic valve replacement History of bilateral carotid endarterectomy Family History Mother Dementia Father CAD (coronary artery disease) Denies family history of Diabetes Clotting disorder Chronic kidney disease (CKD) Suicide Anesthesia complication Bleeding disorder Lung disease Cancer Stroke Social History Smoking and tobacco/nicotine status: current every day tobacco/nicotine user Second hand smoke exposure: No Alcohol intake: never Substance/Drug Use: never Lives independently: Yes Household members: significant other Dietary Habits: Current diet type/program: regular Caffeine: Yes Caffeine intake frequency: carbonated beverages Safety: Seatbelt use: always Drive intoxicated or ride with intoxicated route driver?: never Home Safety: Working smoke detector in home: Yes Fire extinguisher in home: Yes Firearms in home: No Vitals/I&O/Wt Last Vital Signs Temp 98 F 03/29/23 11:10 Pulse 93 03/29/23 11:10 Resp 17 03/29/23 11:10 BP 134/79 03/29/23 11:10 Pulse Ox 97 03/29/23 11:10 O2 Del Method Nasal Cannula 03/29/23 11:10 O2 Flow Rate 2 03/29/23 04:51 03/29/23 03/29/23 03/29/23 06:59 14:59 22:59 Intake Total Balance Weight last 48 hrs Weight 159 lb 3.2 oz Weight 180 lb Physical Exam 2 Const: COMMON NORMALS: no acute distress, average body habitus, patient oriented x3 and alert GENERAL APPEARANCE: cooperative and comfortable O RIENTATION/CONSCIOUSNESS: Yes awake HENMT: COMMON NORMALS: normocephalic and atraumatic HEAD & SCALP: n ormocephalic and atraumatic Eye: GENERAL EYE: appearance normal, both eyes and all related structures Chest: COMMONS NORMALS: normal inspection of the chest Resp: COMMON NORMALS: normal respiratory effort EFFORT & INSPECTION: Yes able to speak in complete sentences and Yes symmetric chest movement Extremity: LEFT LOWER EXTREMITY: Yes hip joint (Tenderness with any attempted range of motion) Left hip: Yes inspection (No significant ecchymosis), Yes palpation (Minimal discomfort) and Yes neurovascular exam (Intact distally with no evidence of DVT) Neuro: COMMON NORMALS: patient oriented x3 SENSORIUM/ORIENTATION: Yes alert Psych: COMMON NORMALS: mental status grossly normal APPEARANCE: Yes grossly normal ATTITUDE: Yes calm and Yes engaged ATTENTION/CONCENTRATION: Yes attention grossly intact Skin: COMMON NORMALS: no rashes or lesions noted GENERAL SKIN EXAM: no rashes or lesions noted Urinary Catheter Management: Juarez: Cath Placed During This Visit: yes Reason for Continuing Indwelling Catheter: Required Immobilization for Trauma or Surgery or Anesthesia Urinary Catheter Date of Insertion: 03/29/23 Urinary Catheter Time of Insertion: 05:42 Data 03/29/23 02:20 03/29/23 02:20 Xray Ortho: My impression: Patient has had both CT and plain films to evaluate her left hip. Images demonstrate there is a minimally displaced subcapital hip fracture. A&P Assessment and plan (1) Subcapital fracture of left hip: Patient was admitted through the emergency department in the early hours this morning. At that time, she had slipped on a rug in her home, and she was found to have a slightly displaced subcapital left hip fracture. After discussion with the patient and her daughter, we have elected to proceed with left bipolar hip arthroplasty. Patient is on anticoagulation and this will need to be reversed prior to proceeding with the surgical intervention. Risks and complications were discussed with the patient and her daughter who is DURABLE POWER OF PROCESSING ASSISTANT. Consents were signed and questions were answered. Qualifiers: Encounter type: initial encounter Fracture type: closed Qualified Code(s): S72.012A - Unspecified intracapsular fracture of left femur, initial encounter for closed fracture Consult Attestations 2 Medical Necessity Statement: Care for left hip fracture Coding Level of Care Code Acute Code for Chg Fwd Diagnoses Closed subcapital fracture of left femur, initial encounter S72.012A Encounter type: initial encounter Fracture type: closed
[2023-03-29 20:21] LABS: Partial Thromboplastin Time 114.3 SECONDS (23.9-36.7)
[2023-03-30] VITALS (19 sets, daily range): BP systolic 90–122; BP diastolic 54–77; PULSE 78–100; RESP 12–22; TEMP 36.5–36.8; O2SAT 93–100
[2023-03-30] MEDS: HYDROcodone-acetaminophen 10-325 mg Tablet 1 TAB PO ×3 (01:06→22:17)
[2023-03-30 03:02] LABS: INR 1.46 (0.8-1.2)
[2023-03-30 06:26] LABS: Basophils % 0.4 %; Eosinophils # 0.5 10^3/uL (0.0-0.8); Eosinophils % 4.7 %; Lymphocytes # 1.4 10^3/uL (0.8-4.8); Lymphocytes % 13.2 %; Mean Corpuscular HGB Conc 32.8 g/dL (30-55); Mean Corpuscular Hemoglobin 30.7 pg (27-33); Mean Corpuscular Volume 93.8 fl (85-98); Mean Platelet Volume 9.7 fL (7.4-10.4); Monocytes # 0.5 10^3/uL (0.2-0.9); Monocytes % 4.5 %; Neutrophils # 8.19 10^3/uL (1.8-7.7); Neutrophils % 76.9 %; Nucleated Red Blood Cells % 0 %; Platelet Count 158 10^3/cmm (157-399); Red Blood Count 3.84 10^6/uL (3.85-5.65); Red Cell Distribution Width 13.6 % (12.1-15.1); White Blood Count 10.65 10^3/uL (3.29-11.43)
[2023-03-30 06:39] LABS: INR 1.37 (0.8-1.2)
[2023-03-30 07:00] LABS: Alanine Aminotransferase 25 U/L (0-33); Albumin Level 3.7 g/dL (3.5-5.2); Alkaline Phosphatase 79 U/L (35-105); Anion Gap 11.1 (5-19); Aspartate Amino Transferase 23 U/L (0-32); Blood Urea Nitrogen 18 mg/dL (8-23); Calcium 9.2 mg/dL (8.5-10.5); Carbon Dioxide 27 mmol/L (22-29); Chloride 103 mmol/L (98-107); Globulin 2.7 g/dL (1.3-4.6); Glucose 104 mg/dL (65-115); Magnesium 2.1 mg/dL (1.7-2.3); Osmolality Calculated 286 mOsm/kg (285-295); Potassium 4.1 mmol/L (3.5-5.1); Sodium 137 mmol/L (136-145); Total Bilirubin 1.5 mg/dL (0.15-1.2); Total Protein 6.4 g/dL (6.6-8.7)
--- NOTE | 2023-03-30 07:00 | PC.NURSE ---
0645 - gold pinky ring removed from pt per this nurse and given to daughter at side, Zainab
[2023-03-30 07:04] LABS: Chol HDL Ratio 1.74 mg/dL (0.0-4.40); Cholesterol 99 mg/dL (0-200); HDL Cholesterol 57 mg/dL (60-100); LDL Cholesterol Calculated 28 mg/dL (50-129); Triglycerides 71 mg/dL (0-150); VLDL Cholestrol Calculation 14 mg/dL (0-30)
[2023-03-30] MEDS: CELEcoxib 200 mg Capsule 400 MG PO (07:04)
[2023-03-30] MEDS: gabapentin 300 mg Capsule PO (07:05)
[2023-03-30] MEDS: acetaminophen 1,000 MG/100 ML PIGGYBACK 400 MG IV ×3 (07:05→23:12)
[2023-03-30 07:22] LABS: Folate Level > 20.0 ng/mL (4.8-37.3)
[2023-03-30 07:25] LABS: Estmated Average Glucose 105; Hemoglobin A1C 5.3 % (4.0-6.0)
--- NOTE | 2023-03-30 07:58 | P.ANESASSM_ITS ---
Pre-Anesthetic Assessment Height/Weight: Height 1.65 m Weight 79.067 kg Temp Pulse Resp BP Pulse Ox O2 Del Method O2 Flow Rate 98.3 F 78 16 111/68 97 Room Air 2 03/30/23 04:05 03/30/23 04:05 03/30/23 04:05 03/30/23 04:05 03/30/23 04:05 03/30/23 04:05 03/29/23 23:28 Operation Date: 03/30/23 08:45 Proposed Procedures p Hemiarthroplasty Hip Bipolar(Left) - Leisa Arzola MD Familial anesthetic complications: None Was Beta Patrick taken within 24 hours: N/A Was Clonidine taken within 24 hours: N/A Last intake: Intake Last Liquid Date 03/29/23 Last Liquid Time 23:00 Last Solid Date 03/29/23 Last Solid Time 18:00 Social No alcohol and No tobacco Exam alert, oriented x 3, clear to auscultation bilaterally and regular rate & rhythm Airway Mallampati: Class II Dentition: chipped CV/HEM Atrial Fibrillation, Arrythmia and Hypertension aortic Mechanical valve on warfarin Pacemaker - does not appear to be defibrillator based on CXR and cardiology notes Anesthetic Plan ASA status: 3 Anesthesia: General Risk of > 500 ml blood loss (7ml/kg in children): Yes, adequate IV access and fluids planned Medications/Allergies Home Medications Medication Instructions Recorded Confirmed Last Taken Type nitroglycerin 0.4 mg sublingual 0.4 mg sublingual Q5M PRN Chest 04/16/19 03/29/23 Unknown Rx tablet (Nitrostat) Pain #25 tabs multivitamin 1 tab PO DAILY 02/08/21 03/29/23 03/28/23 History sennosides 8.6 mg-docusate sodium 1 tab PO DAILY 02/08/21 03/29/23 03/28/23 History 50 mg tablet warfarin 2 mg tablet 2 mg PO DIRECTED #90 tabs 12/14/21 03/29/23 Unknown Rx cyclobenzaprine 10 mg tablet 10 mg PO TID PRN muscle spasm 10 01/02/22 03/29/23 Unknown Rx days #30 tabs cholecalciferol (vitamin D3) 25 25 mcg PO DAILY 06/20/22 03/29/23 03/28/23 History mcg (1,000 unit) capsule cyanocobalamin (vitamin B-12) 2,500 mcg PO DAILY@1000 06/20/22 03/29/23 03/28/23 History 1,000 mcg tablet metoprolol tartrate 25 mg tablet 37.5 mg (1.5 x 25 mg) PO BID #270 06/25/22 03/29/23 03/28/23 Rx tabs amlodipine 5 mg tablet 5 mg PO DAILY #90 tabs 09/23/22 03/29/23 03/28/23 Rx clopidogrel 75 mg tablet (Plavix) 75 mg PO DAILY #90 tabs 09/23/22 03/29/23 03/28/23 Rx levothyroxine 200 mcg tablet 200 mcg PO DAILY #90 tabs 09/23/22 03/29/23 03/28/23 Rx spironolactone 25 mg tablet 25 mg PO DAILY #90 tabs 09/24/22 03/29/23 03/28/23 Rx warfarin 1 mg tablet 1 mg PO DIRECTED #90 tabs 12/02/22 03/29/23 Unknown Rx furosemide 40 mg tablet 40 mg PO BID #180 tabs 12/25/22 03/29/23 03/28/23 Rx potassium chloride 20 mEq 20 meq PO BID@10,21 #180 tabs 12/27/22 03/29/23 03/28/23 Rx tablet,extended release warfarin 3 mg tablet 3 mg PO DIRECTED #90 tabs 02/26/23 03/29/23 Unknown Rx hydrocodone 10 mg-acetaminophen 1 tab PO 5XD PRN pain 30 days #90 03/27/23 03/29/23 03/28/23 Rx 325 mg tablet tabs atorvastatin 40 mg tablet 40 mg PO DAILY 03/29/23 03/29/23 03/28/23 History donepezil 5 mg tablet 5 mg PO DAILY 03/29/23 03/29/23 03/28/23 History Allergies Allergy/AdvReac Type Severity Reaction Status Date / Time No Known Allergies Allergy Verified 08/08/22 08:53 Current Medications Generic Name Dose Route Start Last Admin Trade Name Freq PRN Reason Stop Dose Admin Acetaminophen 500 mg 03/29/23 07:56 03/29/23 10:56 Acetaminophen 500 Mg Tablet PO 500 mg Q4H PRN Administration fever Hydrocodone Bitart/Acetaminophen 1 tab 03/29/23 11:34 03/30/23 01:06 Hydrocodone-Acetaminophen 10-325 Mg Tablet PO 1 tab TID PRN Administration Breakthrough pain Amlodipine Besylate 5 mg 03/29/23 11:15 03/29/23 12:22 Amlodipine 5 Mg Tablet PO 5 mg DAILY ROSE Administration Heparin Sodium/Sodium Chloride 25,000 unit in 500 mls @ 0 mls/hr 03/29/23 11:15 03/30/23 00:20 Heparin Drip IV 0 unit/kg/hr .Q0M ROSE 0 mls/hr Titration Protocol Per Protocol Levothyroxine Sodium 200 mcg 03/29/23 09:00 03/29/23 10:25 Levothyroxine 200 Mcg Tablet PO 200 mcg DAILY ROSE Administration Metoprolol Tartrate 50 mg 03/29/23 08:10 03/29/23 21:02 Metoprolol Tartrate 50 Mg Tablet PO 50 mg BID@0900,2100 ROSE Administration Senna/Docusate Sodium 1 tab 03/29/23 09:00 03/29/23 08:53 Sennosides-Docusate Tablet PO 1 tab DAILY ROSE Administration [facility] Anesthesia Medical History Pacemaker Chronic atrial fibrillation Patient has history of intermittent atrial fibrillation. History of common carotid artery stent placement Clinically stable Arthritis, lumbar spine Chronic lumbar radiculopathy Spinal stenosis, lumbar region without neurogenic claudication Encounter for long-term opiate analgesic use Depression Hypercholesterolemia Hypothyroidism Hypertension Atrial fibrillation Surgical History History of back surgery History of permanent cardiac pacemaker placement Aortic valve replaced 2000 H/O section History of appendectomy History of carpal tunnel surgery of right wrist History of carpal tunnel surgery of left wrist H/O aortic valve replacement History of bilateral carotid endarterectomy Family History Mother Dementia Father CAD (coronary artery disease) Denies family history of Diabetes Clotting disorder Chronic kidney disease (CKD) Suicide Anesthesia complication Bleeding disorder Lung disease Cancer Stroke Social History Smoking and tobacco/nicotine status: current every day tobacco/nicotine user Second hand smoke exposure: No Alcohol intake: never Substance/Drug Use: never Lives independently: Yes Household members: significant other Data Anesthesia 03/30/23 05:53 03/30/23 05:53 Short CBC 03/29/23 03/30/23 Range/Units 02:20 05:53 WBC 13.99 H 10.65 (3.29-11.43) 10^3/uL Hgb 12.20 11.80 (11.27-16.99) g/dL Hct 37.5 36.0 (36-47) % MCV 93.5 93.8 (85-98) fl Plt Count 195 158 (157-399) 10^3/cmm Neut % (Auto) 87.0 76.9 % Neut # (Auto) 12.16 H 8.19 H (1.8-7.7) 10^3/uL BMP 03/29/23 03/30/23 02:20 05:53 Sodium 140 137 Potassium 4.6 4.1 Chloride 103 103 Carbon Dioxide 29 27 BUN 20 18 Creatinine 1.0 H 0.9 Glucose 139 H 104 Calcium 9.7 9.2 Liver Function 03/29/23 03/30/23 Range/Units 02:20 05:53 Total Bilirubin 0.7 1.5 H (0.15-1.2) mg/dL AST 29 23 (0-32) U/L ALT 26 25 (0-33) U/L Alkaline Phosphatase 85 79 (35-105) U/L Albumin 4.1 3.7 (3.5-5.2) g/dL Blood Bank 03/29/23 08:30 Blood Type A Positive Rho(D) Type Rh positive Coags 03/29/23 03/29/23 03/29/23 02:20 12:13 12:13 PT 31.90 H Cancelled 25.30 H INR 2.96 H Cancelled APTT 31.7 03/29/23 03/29/23 03/30/23 12:13 19:30 02:00 PT 18.20 H INR 2.20 H 1.46 H APTT 31.3 114.3 H D 03/30/23 05:53 PT 17.30 H INR 1.37 H APTT Cardiac Studies: 2 Echocardiogram 03/29/23 Echocardiogram Ultrasound 04/15/19 Sestamibi Stress Test (Cardiology) 04/16 Cardiac Event Monitor 03/21/20
[2023-03-30] MEDS: ceFAZolin 2,000 MG in sodium chloride 0.9% (plus) 50 ML 100 MG IV ×3 (08:10→22:15)
[2023-03-30] MEDS: tranexamic acid 1,000 MG/100 ML PREMIX 600 MG IV ×2 (08:25→18:03)
[2023-03-30] MEDS: ceFAZolin 1,000 mg SDV 1000 MG IVP (08:47)
[2023-03-30] MEDS: thrombin 5,000 unit SDV 5000 UNIT XX (09:30)
[2023-03-30] MEDS: vancomycin 1,000 MG SDV 1000 MG INTRA-ARTI (09:31)
[2023-03-30] MEDS: lidocaine-epi 1% PF 1:200,000 30 mL SDV INJECTION (09:45)
--- NOTE | 2023-03-30 10:36 | XRR_ITS ---
PROCEDURE INFORMATION: Exam: XR Pelvis Exam date and time: 03/30/2023 10:37 AM Age: 77 years old Clinical indication: Device placement; Prior surgery; Surgery date: Post-operative (0-2 days); Surgery type: Lt hip; Additional info: S/P vijay, low ap pelvis TECHNIQUE: Imaging protocol: Radiologic exam of the pelvis. Views: 1 or 2 view. COMPARISON: CR (PELVIS, ) 03/29/2023 9:23 AM FINDINGS: Bones/joints: No fracture or malalignment or hardware complication. Soft tissues: Postoperative changes. XR/XR pelvis 1-2V* [id number] IMPRESSION: No unexpected postoperative findings.
--- NOTE | 2023-03-30 11:04 | P.OP_ITS ---
Operative Report Date of procedure: March 30, 2023 Pre-op diagnosis: Left subcapital hip fracture, impacted and slightly angulated Post-op diagnosis: Left subcapital hip fracture, impacted and slightly angulated Post-op findings: Left subcapital hip fracture Procedure done: Left bipolar hip arthroplasty Implants: The [place] total hip system with a size 49 mm universal head bipolar component with 28 mm inner diameter and a Maria Elena 28 mm outer diameter +4 mm offset V40 LFIT Femoral head, and a size 6 Accolade II 127? neck angle hip stem Specimens removed/disposition: Femoral head, disposed of Surgeon: Leisa Arzola MD Head Stock Transfer Clerk: [facility] operating room technicians Anesthesia: General (Intubated, ASA 3) Estimated blood loss (mL): 80 IV fluids (mL): 800 Urine output (mL): 200 Complications: None Findings: Stable at 90 degrees of flexion with 80 degrees of internal rotation and 20 degrees of adduction Condition: stable Disposition: PACU (Then return to floor for same-day surgery for discharge to home) Brief History: Jennifer You is a 77 year old female who was in her usual state of health where she lives with her significant other in her own home. The patient was going into the kitchen around 11 PM, and she lost her balance and fell to the floor. She states that she slipped on a rug in her dining area. She denies loss of consciousness, chest pain, shortness of breath, or other issue of concern. The patient has A-fib and is on both Plavix and Coumadin. Patient was diagnosed in the emergency department with a subcapital left hip fracture. She was seen with her daughter in her room, and discussion was undertaken regarding appropriate treatment in the form of a bipolar hip arthroplasty. Risks and complications were discussed, and consents were signed. Questions were answered. Procedure: Patient was brought to the operating theater.? She was transferred to the operating room table and subsequently administered general anesthetic intubated, ASA 3.? Following administration of adequate anesthesia, the patient was placed in full lateral position and held in position with a pegboard.? The patient's left lower extremity was then prepped and draped in usual fashion utilizing DuraPrep.? It was draped free.? Following prepping and draping, a surgical pause was performed.? At the time of surgical pause, we identified the site and side of surgery.? We also identified the patient and preoperative surgical markings.? Additionally, leg lengths were marked after draping.? Confirmation was made of equipment availability.? The patient's preoperative IV antibiotic, Ancef 2 g, and TXA administration was confirmed as well.? X-rays were also reviewed. Following the surgical pause, an incision was made centering over the patient's greater trochanter continuing proximally and distally as necessary to allow access to the hip joint.? Dissection continued through skin and soft tissues using a scalpel, and hemostasis was obtained using electrocautery. The tensor fascia rigo was identified and incised longitudinally.? Sciatic nerve was identified and protected throughout the surgical procedure.? A Charnley U retractor was placed after the tensor fascia rigo had been incised longitudinally, and the sciatic nerve had been identified.? The hip was internally rotated, and the piriformis muscle was identified and tagged. Piriformis muscle along with the remaining short external rotators were then incised from the posterior aspect of the hip joint.? These were retracted posteriorly.? The capsule was entered in a T-type fashion with the edges being tagged, and subsequently the hip was dislocated. The labrum was excised.? Following hip dislocation, a femoral neck osteotomy was accomplished in the appropriate position.? The head was measured.? Subsequently, it was disposed of.? We then evaluated the acetabulum. The femur was retracted anteriorly.? Soft tissues were retracted, and the labrum was further evaluated. It was removed where there was any excess labrum.? Ligamentum fovea was also removed. Following this, the femoral head head measured 48 mm, so trial was accomplished with a 48 mm femoral head and a 49 mm femoral head. The 49 mm femoral head was noted to fit nicely and give excellent stability inherently. Therefore, this was the chosen universal femoral head component. Attention was directed to the proximal femur.? The proximal femur was lifted out of the wound.? A canal finder was passed after the box chisel.? The reamer was used to lateralize.? We then began broaching. We broached sequentially and had excellent fit and fill with the size 6 broach. ? A trial reduction was attempted with a +0 mm femoral head, but this was subsequently increased to a +4 mm offset femoral head.? With this construct, the hip was stable, and leg length was felt to be equal.? With this in place, we had the above stabilities.? This was felt to be excellent stability. Therefore, trial components were removed after the hip was dislocated.? The size 6 Accolade II 127? neck angle stem was impacted into position without difficulty and onto this was placed a construct with a +4 mm offset by 28 mm outer diameter femoral head into the universal head bipolar component size 49 mm outer diameter and 28 mm inner diameter. The stem was noted to seat nicely prior to placement of the femoral head.? The wound was copiously irrigated with 20 mL of Betadine and 500 mL of normal saline mixed together.? Subsequently, we suctioned this out and irrigated the wound copiously with lactated Ringer's.? At this time, with all components in appropriate position, the hip was reduced.? Following reduction of the prosthesis once again, we confirmed the stability of the hip.? Leg lengths were also felt to be satisfactory. Being satisfied with the prosthesis, attention was directed to closure.? Closure was accomplished with 0 Vicryl in the capsular tissues.? Piriformis was reattached with 0 Vicryl as well.? Tensor fascia rigo was closed with 0 Vicryl in an interrupted fashion.? The subcutaneous tissues were closed with a combination of 0 Vicryl and 2-0 Monocryl.? Vancomycin powder and a Gelfoam thrombin mixture was placed into the wound as well.? The skin was closed with a running 3-0 Monocryl followed by Dermabond and Steri-Strips followed by OpSite.? The patient was placed in an abduction pillow.? She was returned the Recovery Ro om in a satisfactory condition and will be discharged to the floor for postoperative rehabilitation and pain management.? There were no complications or specimens. Related Problem List Diagnoses (1) Subcapital fracture of left hip:
[2023-03-30] MEDS: sennosides-docusate Tablet 1 TAB PO (11:36)
[2023-03-30] MEDS: metoprolol tartrate 50 mg Tablet PO ×2 (11:36→22:16)
[2023-03-30] MEDS: donepezil 5 MG Tablet PO (11:37)
[2023-03-30] MEDS: atorvastatin 40 mg Tablet PO (11:37)
[2023-03-30] MEDS: levothyroxine 200 mcg Tablet PO (11:37)
[2023-03-30] MEDS: cyanocobalamin 1,000 mcg Tablet 2500 MCG PO (11:37)
[2023-03-30 13:30] LABS: Partial Thromboplastin Time 29.4 SECONDS (23.9-36.7)
[2023-03-30] MEDS: CELEcoxib 200 mg Capsule PO ×2 (13:46→23:38)
[2023-03-30] MEDS: chlorhexidine gluconate 0.12% Btl 473 mL 30 ML MUCOUS MEM ×3 (13:51→22:16)
--- NOTE | 2023-03-30 15:57 | P.PN_ITS ---
Subjective 2 Subjective: No acute events overnight. Underwent ORIF today. Doing well after ORIF. Passed to baseline mentation. Seen with daughter at bedside. Patient denies any nausea, vomiting, headache. Vitals/I&O/Wt Last Vital Signs Temp 98.3 F 03/30/23 10:59 Pulse 90 03/30/23 15:36 Resp 16 03/30/23 15:36 BP 112/74 03/30/23 14:00 Pulse Ox 97 03/30/23 15:36 O2 Del Method Nasal Cannula 03/30/23 15:36 O2 Flow Rate 3 03/30/23 15:36 03/30/23 03/30/23 03/30/23 06:59 14:59 22:59 Intake Total 37.333 / 1381.000 350 / 350 Output Total 250 / 600 480 / 480 Balance -212.667 / 781.000 -130 / -130 Weight last 48 hrs Weight 79.067 kg Weight 72.212 kg Weight 81.647 kg Physical Exam 2 Narrative: General: No acute distress, AO x3 HEENT: PERRLA, pupils bilaterally equal and reactive Chest: Normal vesicular breath sounds, no added sounds, equal good air entry bilaterally CVS: S1-S2 regular, soft ejection systolic murmur at aortic not radiating to carotids, no tachycardia, no gallops, no rubs Abdomen: Soft, nontender, no organomegaly, bowel sounds present Neuro: No focal deficits, no facial deformity, AO x3, power 5/5 in all limbs Urinary Catheter Management: Juarez: Cath Placed During This Visit: yes Reason for Continuing Indwelling Catheter: Required Immobilization for Trauma or Surgery or Anesthesia Urinary Catheter Date of Insertion: 03/29/23 Urinary Catheter Time of Insertion: 05:42 Data 03/30/23 05:53 03/30/23 05:53 A&P Assessment and plan (1) Subcapital fracture of left hip: Post-ORIF day 0. Appreciate orthopedic recommendation. Anticoagulation to be restarted today. Restart heparin drip. Monitor PTT and hemoglobin. Repeat hemoglobin in evening. Will plan to avoid giving bolus heparin. Pain medication, physical therapy as per orthopedic team. Will discontinue 1 g every 8 of Tylenol. Qualifiers: Encounter type: initial encounter Fracture type: closed Qualified Code(s): S72.012A - Unspecified intracapsular fracture of left femur, initial encounter for closed fracture (2) Chronic anticoagulation: For mechanical aortic valve. On Coumadin. Target INR 2.5-3.5. Received vitamin K on admission for hip fracture. Currently on heparin drip. Will continue heparin drip. Will restart Coumadin from tomorrow. Will bridge from heparin drip to Coumadin till patient's reaches target INR. (3) Aortic valve replaced: Anticoagulation as above. Echocardiogram done shows a normal EF with 65% EF, mild LVH with no regional wall motion abnormality, peak velocity of 2.81 m/s with peak gradient of 32 across the aortic valve with calculated area 0.8 cm?, mild MR, moderate TR with moderate pulmonary hypertension PASP of 59 mmHg. (4) Chronic atrial fibrillation: Currently rate controlled. Continue with metoprolol 50 mg twice daily. (5) Pacemaker: (6) History of common carotid artery stent placement: (7) Essential hypertension: Plan CODE STATUS: Discussed in detail with patient. Daughter will be the DPOA. Full code. Cardiac diet. To be restarted as per orthopedic team. Heparin drip will suffice as DVT prophylaxis Protonix for PUD prophylaxis. Discharge plan: Family requesting discharge to SNF for rehab post-ORIF. Attestations 2 Medical Necessity Statement*: Requires further hospitalization for management of post-ORIF care, mechanical aortic valve on heparin drip which she will be bridged to oral Coumadin to reach target INR of 2.5-3.5. Diagnoses Closed subcapital fracture of left femur, initial encounter S72.012A Encounter type: initial encounter Fracture type: closed Chronic anticoagulation Z79.01 Aortic valve replaced Z95.2 Chronic atrial fibrillation I48.20 Pacemaker Z95.0 History of common carotid artery stent placement Z98.890; Z95.828 Essential hypertension I10
--- NOTE | 2023-03-30 16:36 | P.PN_ITS ---
Vitals/I&O/Wt Last Vital Signs Temp 98.3 F 03/30/23 10:59 Pulse 85 03/30/23 16:00 Resp 16 03/30/23 16:00 BP 96/66 03/30/23 16:00 Pulse Ox 94 03/30/23 16:00 O2 Del Method Nasal Cannula 03/30/23 16:00 O2 Flow Rate 3 03/30/23 15:36 03/30/23 03/30/23 03/30/23 06:59 14:59 22:59 Intake Total 37.333 / 1381.000 350 / 350 Output Total 250 / 600 480 / 480 Balance -212.667 / 781.000 -130 / -130 Weight last 48 hrs Weight 174 lb 5 oz Weight 159 lb 3.2 oz Weight 180 lb Physical Exam 2 Urinary Catheter Management: Juarez: Cath Placed During This Visit: yes Reason for Continuing Indwelling Catheter: Required Immobilization for Trauma or Surgery or Anesthesia Urinary Catheter Date of Insertion: 03/29/23 Urinary Catheter Time of Insertion: 05:42 Data 03/30/23 05:53 03/30/23 05:53 Coding Level of Care Code Acute Code for Chg Navya
--- NOTE | 2023-03-30 16:48 | PC.PHAR ---
Warfarin consult patient home dose of Coumadin was 3mg on Fri, Fri, Fri, Fri & Fri, 2mg and none on Friday from the notes Will start on 2.5 mg (Patients who are at an increased risk of bleeding such as the elderly (> 65-70 yo) or patients with CHF/ liver disease / debilitated / recent major surgery / or patients receiving medications known to potentiate the action of warfarin are usually started at the low end of this range e.g. 2.5 - 3 mg.) Will continue to monitor INR. Thank you, Lakesha Cameron [facility]
[2023-03-30] MEDS: calcium carbonate 500 mg Chew Tablet 1000 MG PO (18:04)
[2023-03-30] MEDS: iron polysaccharide complex 150 mg Capsule PO (18:04)
[2023-03-30] MEDS: sennosides-docusate Tablet 2 TAB PO (18:04)
[2023-03-30] MEDS: mupirocin oint 22 gm 1 APPLIC NASAL (18:05)
[2023-03-30] MEDS: oxyCODONE 5 mg IR Tab/Cap PO (18:13)
[2023-03-30 18:31] LABS: Hematocrit 37.2 % (36-47)
[2023-03-30 20:38] LABS: Hematocrit 34.4 % (36-47)
[2023-03-30 20:58] LABS: Partial Thromboplastin Time 61.7 SECONDS (23.9-36.7)
[2023-03-31] VITALS (10 sets, daily range): BP systolic 91–132; BP diastolic 55–80; PULSE 82–92; RESP 14–18; TEMP 36.4–36.7; O2SAT 92–98; BMI 29.2
[2023-03-31] MEDS: oxyCODONE 5 mg IR Tab/Cap PO ×2 (02:47→16:37)
[2023-03-31 03:06] LABS: Basophils % 0.1 %; Hematocrit 33.7 % (36-47); Lymphocytes # 0.8 10^3/uL (0.8-4.8); Lymphocytes % 5.4 %; Mean Corpuscular HGB Conc 32.6 g/dL (30-55); Mean Corpuscular Hemoglobin 30.6 pg (27-33); Mean Corpuscular Volume 93.9 fl (85-98); Mean Platelet Volume 9.9 fL (7.4-10.4); Monocytes # 0.5 10^3/uL (0.2-0.9); Monocytes % 3.5 %; Neutrophils # 12.96 10^3/uL (1.8-7.7); Neutrophils % 90.3 %; Nucleated Red Blood Cells % 0 %; Platelet Count 148 10^3/cmm (157-399); Red Blood Count 3.59 10^6/uL (3.85-5.65); Red Cell Distribution Width 13.1 % (12.1-15.1); White Blood Count 14.37 10^3/uL (3.29-11.43)
[2023-03-31 03:33] LABS: Anion Gap 12.2 (5-19); Blood Urea Nitrogen 22 mg/dL (8-23); Calcium 8.8 mg/dL (8.5-10.5); Carbon Dioxide 24 mmol/L (22-29); Chloride 107 mmol/L (98-107); Glucose 137 mg/dL (65-115); Osmolality Calculated 293 mOsm/kg (285-295); Potassium 4.2 mmol/L (3.5-5.1); Sodium 139 mmol/L (136-145)
[2023-03-31 03:37] LABS: Partial Thromboplastin Time 73.9 SECONDS (23.9-36.7)
[2023-03-31] MEDS: ceFAZolin 2,000 MG in sodium chloride 0.9% (plus) 50 ML 100 MG IV (05:06)
[2023-03-31] MEDS: HYDROcodone-acetaminophen 10-325 mg Tablet 1 TAB PO (06:05)
[2023-03-31] MEDS: levothyroxine 200 mcg Tablet PO (08:21)
[2023-03-31] MEDS: sennosides-docusate Tablet 2 TAB PO ×2 (08:22→17:14)
[2023-03-31] MEDS: calcium carbonate 500 mg Chew Tablet 1000 MG PO ×2 (08:22→17:13)
[2023-03-31] MEDS: cholecalciferol (vitamin D3) 1,000 unit Tablet 1000 UNIT PO (08:22)
[2023-03-31] MEDS: multivitamin therapeutic Tablet 1 TAB PO (08:22)
[2023-03-31] MEDS: atorvastatin 40 mg Tablet PO (08:22)
[2023-03-31] MEDS: pantoprazole DR 40 mg Tablet PO (08:22)
[2023-03-31] MEDS: iron polysaccharide complex 150 mg Capsule PO (08:22)
[2023-03-31] MEDS: amlodipine 5 mg Tablet PO (08:22)
[2023-03-31] MEDS: chlorhexidine gluconate 0.12% Btl 473 mL 30 ML MUCOUS MEM ×4 (08:23→21:44)
[2023-03-31] MEDS: mupirocin oint 22 gm 1 APPLIC NASAL ×2 (08:24→17:14)
[2023-03-31] MEDS: donepezil 5 MG Tablet PO (08:30)
[2023-03-31] MEDS: metoprolol tartrate 50 mg Tablet PO ×2 (08:31→21:44)
[2023-03-31] MEDS: heparin drip 25,000 UNIT/500 ML PREMIX 16 UNIT IV (08:37)
[2023-03-31 09:48] LABS: Partial Thromboplastin Time 48.4 SECONDS (23.9-36.7)
[2023-03-31] MEDS: cyanocobalamin 1,000 mcg Tablet 2500 MCG PO (11:30)
[2023-03-31] MEDS: CELEcoxib 200 mg Capsule PO (12:52)
--- NOTE | 2023-03-31 13:19 | PM.PN ---
Subjective Subjective: Patient is seen following left bipolar hip arthroplasty. She is doing well. Medications: Reviewed: Yes Vitals/I&O/Wt Last Vital Signs Temp 97.7 F 04/01/23 03:55 Pulse 75 04/01/23 07:22 Resp 16 04/01/23 07:22 BP 130/81 04/01/23 03:55 Pulse Ox 100 04/01/23 07:22 O2 Del Method Room Air 04/01/23 07:22 O2 Flow Rate 2 03/31/23 20:00 03/31/23 04/01/23 04/01/23 22:59 06:59 14:59 Intake Total 520 / 848.933 238.667 / 1087.600 Balance 520 / 848.933 238.667 / 1087.600 Weight last 48 hrs Weight 172 lb 5 oz Weight 175 lb 9.6 oz Physical Exam Const: COMMON NORMALS: no acute distress, average body habitus, patient oriented x3 and alert GENERAL APPEARANCE: cooperative and comfortable ORIENTATION/CONSCIOUSNESS: Yes awake HENMT: COMMON NORMALS: normocephalic and atraumatic HEAD & SCALP: normocephalic and atraumatic Eye: GENERAL EYE: appearance normal, both eyes and all related structures Chest: COMMONS NORMALS: normal inspection of the chest Resp: COMMON NORMALS: normal respiratory effort EFFORT & INSPECTION: Yes able to speak in complete sentences and Yes symmetric chest movement Extremity: LEFT LOWER EXTREMITY: Yes hip joint (No significant swelling or ecchymosis) Left hip: Yes inspection (Dressing is dry and intact), Yes ROM (Not evaluated) and Yes neurovascular exam (No evidence of DVT) Neuro: COMMON NORMALS: patient oriented x3 SENSORIUM/ORIENTATION: Yes alert Psych: COMMON NORMALS: mental status grossly normal APPEARANCE: Yes grossly normal ATTITUDE: Yes calm and Yes engaged ATTENTION/CONCENTRATION: Yes attention grossly intact Skin: COMMON NORMALS: no rashes or lesions noted GENERAL SKIN EXAM: no rashes or lesions noted Urinary Catheter Management: Juarez: Cath Placed During This Visit: yes, but has since been removed by the nurse Reason for Continuing Indwelling Catheter: Decision to DC Catheter Urinary Catheter Date of Insertion: 03/29/23 Urinary Catheter Time of Insertion: 05:42 Date Urinary Catheter Removed: 03/31/23 Time Urinary Catheter Discontinued: 06:36 Data 04/02/23 01:25 03/31/23 02:37 A&P Assessment and plan (1) Subcapital fracture of left hip: Patient is doing well following left bipolar hip arthroplasty. She is working with physical therapy. Consideration is being given to discharge to nursing home secondary to multiple medical comorbidities. There are no signs or symptoms of infection or of DVT. Patient requires ongoing hospital care as she rehabilitates from this hip fracture. Qualifiers: Encounter type: initial encounter Fracture type: closed Qualified Code(s): S72.012A - Unspecified intracapsular fracture of left femur, initial encounter for closed fracture (2) History of left hip hemiarthroplasty: (3) Fall as cause of accidental injury at home as place of occurrence: Attestations Medical Necessity Statement*: Ongoing care following hip fracture and subsequent surgery Coding Level of Care Code Acute Code for Chg Fwd Diagnoses Closed subcapital fracture of left femur, initial encounter S72.012A Encounter type: initial encounter Fracture type: closed History of left hip hemiarthroplasty Z96.642 Fall as cause of accidental injury at home as place of occurrence W19.XXXA; Y92.009
[2023-03-31] MEDS: warfarin 2.5 mg Tablet PO (14:42)
--- NOTE | 2023-03-31 14:57 | PC.SOCIAL ---
Pg 2 IMM Explained to pt & family Pg 2 IMM. No questions voiced. Provided pt a copy. Initialed, dated, & timed a copy & placed in chart.
[2023-03-31 17:18] LABS: Partial Thromboplastin Time 55.9 SECONDS (23.9-36.7)
[2023-03-31] MEDS: acetaminophen 500 mg Tablet PO (21:47)
[2023-03-31 23:04] LABS: Partial Thromboplastin Time 67.8 SECONDS (23.9-36.7)
--- NOTE | 2023-03-31 23:14 | P.PN_ITS ---
Subjective 2 Subjective: She says she is doing okay, some soreness in her hip, but pain is not unbearable. Vitals/I&O/Wt Last Vital Signs Temp 97.8 F 03/31/23 19:40 Pulse 85 03/31/23 19:40 Resp 17 03/31/23 19:40 BP 132/80 03/31/23 19:40 Pulse Ox 98 03/31/23 20:00 O2 Del Method Nasal Cannula 03/31/23 20:00 O2 Flow Rate 2 03/31/23 20:00 03/31/23 03/31/23 04/01/23 14:59 22:59 06:59 Intake Total 328.933 / 328.933 520 / 848.933 Balance 328.933 / 328.933 520 / 848.933 Weight last 48 hrs Weight 79.651 kg Weight 79.067 kg Physical Exam 2 Narrative: Accompanied by her daughter. Const: COMMON NORMALS: patient oriented x3 and alert GENERAL APPEARANCE: c ooperative ORIENTATION/CONSCIOUSNESS: Yes awake HENMT: COMMON NORMALS: oropharynx normal Neck/C-Spine: COMMON NORMALS: no JVD Resp: COMMON NORMALS: normal respiratory effort and clear to auscultation bilaterally AUSCULTATION: clear to auscultation bilaterally Cardio: COMMON NORMALS: no JVD, regular rhythm, S1 normal heart sound present, S2 normal heart sound present and No murmurs present (Cardio) RHYTHM: regular rhythm HEART SOUNDS: S1 normal heart sound present and S2 normal heart sound present GI: COMMON NORMALS: Normal to inspection, nondistended, normoactive bowel sounds present, Soft to palpation and non-tender PALPATION: Yes Soft to palpation Extremity: COMMON NORMALS: no joint enlargement and no pedal edema N ARRATIVE EXTREMITY EXAM: No bleeding or erythema around the left hip wound. No lower extremity edema. Extremities perfused. Neuro: COMMON NORMALS: patient oriented x3 and moves all extremities S ENSORIUM/ORIENTATION: Yes alert Skin: COMMON NORMALS: no rashes or lesions noted GENERAL SKIN EXAM: no rashes or lesions noted Urinary Catheter Management: Juarez: Cath Placed During This Visit: yes, but has since been removed by the nurse Reason for Continuing Indwelling Catheter: Decision to DC Catheter Urinary Catheter Date of Insertion: 03/29/23 Urinary Catheter Time of Insertion: 05:42 Date Urinary Catheter Removed: 12/18/23 Time Urinary Catheter Discontinued: 06:36 Data 03/31/23 02:37 03/31/23 02:37 A&P Assessment and plan (1) Subcapital fracture of left hip: Encouraged incentive spirometer use. Continue analgesia as needed. PT, OT evaluation. Discussed with case resource manager. Orthopedic documentation reviewed. Anticoagulation to be bridged as below. She is having difficult time chewing her food, adjusted diet to dysphagia minced and moist. Qualifiers: Encounter type: initial encounter Fracture type: closed Qualified Code(s): S72.012A - Unspecified intracapsular fracture of left femur, initial encounter for closed fracture (2) Chronic anticoagulation: Reviewed vitals, CBC. INR. Warfarin resumed. Recheck INR requested. Continues on heparin drip at this time. Monitor PTT. At risk of bleeding. For mechanical aortic valve. On Coumadin. Target INR 2.5-3.5. Received vitamin K on admission for hip fracture. Currently on heparin drip. Will continue heparin drip. Will restart Coumadin from tomorrow. Will bridge from heparin drip to Coumadin till patient's reaches target INR. (3) Aortic valve replaced: Anticoagulation as above. Echocardiogram done shows a normal EF with 65% EF, mild LVH with no regional wall motion abnormality, peak velocity of 2.81 m/s with peak gradient of 32 across the aortic valve with calculated area 0.8 cm?, mild MR, moderate TR with moderate pulmonary hypertension PASP of 59 mmHg. (4) Chronic atrial fibrillation: Reviewed chemistry. Check level. Reviewed lung exam. Currently rate controlled. Continue with metoprolol 50 mg twice daily. (5) Pacemaker: (6) History of common carotid artery stent placement: (7) Essential hypertension: Plan CODE STATUS: Discussed in detail with patient. Daughter will be the DPOA. Full code. Cardiac diet. To be restarted as per orthopedic team. Heparin drip will suffice as DVT prophylaxis Protonix for PUD prophylaxis. Discharge plan: Family requesting discharge to SNF for rehab post-ORIF. Attestations 2 Medical Necessity Statement*: Continue admission for bridging to therapeutic anticoagulation with warfarin due to mechanical aortic valve with heparin drip, status post left hip arthroplasty, discharge planning and arrangements. and High MDM includes amount and/or complexity of data reviewed/ordered [ previous or external records, resulted lab(s)/test(s), ordered lab(s)/test(s) and other healthcare professional discussion] and described risk of complication, morbidity or mortality of management as documented Diagnoses Closed subcapital fracture of left femur, initial encounter S72.012A Encounter type: initial encounter Fracture type: closed Chronic anticoagulation Z79.01 Aortic valve replaced Z95.2 Chronic atrial fibrillation I48.20 Pacemaker Z95.0 History of common carotid artery stent placement Z98.890; Z95.828 Essential hypertension I10
[2023-04-01] VITALS (9 sets, daily range): BP systolic 129–135; BP diastolic 75–86; PULSE 65–94; RESP 16–18; TEMP 36.1–36.8; O2SAT 94–100
[2023-04-01] MEDS: CELEcoxib 200 mg Capsule PO ×2 (00:42→12:29)
[2023-04-01 04:45] LABS: Basophils % 0.1 %; Eosinophils # 0.2 10^3/uL (0.0-0.8); Hematocrit 32.7 % (36-47); Lymphocytes # 1.3 10^3/uL (0.8-4.8); Lymphocytes % 8.6 %; Mean Corpuscular Hemoglobin 30.6 pg (27-33); Mean Corpuscular Volume 92.6 fl (85-98); Mean Platelet Volume 9.7 fL (7.4-10.4); Monocytes # 0.9 10^3/uL (0.2-0.9); Monocytes % 6.1 %; Neutrophils # 12.28 10^3/uL (1.8-7.7); Neutrophils % 83.5 %; Nucleated Red Blood Cells % 0 %; Platelet Count 187 10^3/cmm (157-399); Red Blood Count 3.53 10^6/uL (3.85-5.65); Red Cell Distribution Width 13.5 % (12.1-15.1)
[2023-04-01 04:57] LABS: INR 1.36 (0.8-1.2); Partial Thromboplastin Time 57.9 SECONDS (23.9-36.7)
[2023-04-01 05:07] LABS: Magnesium 2.1 mg/dL (1.7-2.3)
[2023-04-01] MEDS: donepezil 5 MG Tablet PO (09:44)
[2023-04-01] MEDS: cyanocobalamin 1,000 mcg Tablet 2500 MCG PO (09:44)
[2023-04-01] MEDS: chlorhexidine gluconate 0.12% Btl 473 mL 30 ML MUCOUS MEM ×4 (09:45→22:12)
[2023-04-01] MEDS: mupirocin oint 22 gm 1 APPLIC NASAL ×2 (09:45→17:26)
[2023-04-01] MEDS: sennosides-docusate Tablet 2 TAB PO ×2 (09:45→17:26)
[2023-04-01] MEDS: calcium carbonate 500 mg Chew Tablet 1000 MG PO ×2 (09:46→17:26)
[2023-04-01] MEDS: cholecalciferol (vitamin D3) 1,000 unit Tablet 1000 UNIT PO (09:46)
[2023-04-01] MEDS: multivitamin therapeutic Tablet 1 TAB PO (09:46)
[2023-04-01] MEDS: levothyroxine 200 mcg Tablet PO (09:46)
[2023-04-01] MEDS: iron polysaccharide complex 150 mg Capsule PO ×2 (09:47→17:26)
[2023-04-01] MEDS: amlodipine 5 mg Tablet PO (09:47)
[2023-04-01] MEDS: atorvastatin 40 mg Tablet PO (09:47)
[2023-04-01] MEDS: pantoprazole DR 40 mg Tablet PO (09:48)
[2023-04-01] MEDS: metoprolol tartrate 50 mg Tablet PO ×2 (09:50→22:11)
[2023-04-01 11:11] LABS: Partial Thromboplastin Time 45.7 SECONDS (23.9-36.7)
--- NOTE | 2023-04-01 12:27 | PC.NURSE ---
Titration was 17 yesterday, did not document. That is why titration at 18 on 04/01/23.
--- NOTE | 2023-04-01 12:57 | P.PN_ITS ---
Subjective 2 Subjective: Patient is up at bedside and eating during this visit today. No acute events overnight. Patient doing well postoperatively from left hip hemiarthroplasty secondary to a left subcapital hip fracture. Pain is tolerable while resting and does not increase with ambulation or weightbearing. This is managed with medications well. At baseline mentation. Patient denies any nausea, vomiting or headache. Vitals/I&O/Wt Last Vital Signs Temp 98.0 F 04/01/23 11:26 Pulse 86 04/01/23 11:26 Resp 16 04/01/23 11:26 BP 135/86 04/01/23 11:26 Pulse Ox 94 04/01/23 11:26 O2 Del Method Room Air 04/01/23 11:26 O2 Flow Rate 2 03/31/23 20:00 03/31/23 04/01/23 04/01/23 22:59 06:59 14:59 Intake Total 520 / 848.933 238.667 / 1087.600 685.867 / 685.867 Output Total 375 / 375 Balance 520 / 848.933 238.667 / 1087.600 310.867 / 310.867 Weight last 48 hrs Weight 172 lb 5 oz Weight 175 lb 9.6 oz Physical Exam 2 Const: COMMON NORMALS: no acute distress, average body habitus, patient oriented x3 and alert GENERAL APPEARANCE: cooperative and comfortable O RIENTATION/CONSCIOUSNESS: Yes awake HENMT: COMMON NORMALS: normocephalic and atraumatic HEAD & SCALP: n ormocephalic and atraumatic Chest: COMMONS NORMALS: normal inspection of the chest Resp: COMMON NORMALS: normal respiratory effort EFFORT & INSPECTION: Yes able to speak in complete sentences and Yes symmetric chest movement Extremity: LEFT LOWER EXTREMITY: Yes hip joint Left hip: Yes inspection (Postoperative dressing in place), Yes palpation (Minimal discomfort), Yes ROM (Doing comfortably in chair with hip flexed to 90.) and Yes neurovascular exam (Sensation intact to light touch. 2+ DP and PT pulses.) and Yes lower leg Left lower leg: Yes special tests (No calf pain, swelling, erythema or warmth.) Left lower leg special tests: Isaura's sign: Negative Neuro: COMMON NORMALS: patient oriented x3 SENSORIUM/ORIENTATION: Yes alert Psych: COMMON NORMALS: mental status grossly normal APPEARANCE: Yes grossly normal ATTITUDE: Yes calm and Yes engaged ATTENTION/CONCENTRATION: Yes attention grossly intact Skin: COMMON NORMALS: no rashes or lesions noted GENERAL SKIN EXAM: no rashes or lesions noted Urinary Catheter Management: Juarez: Cath Placed During This Visit: yes, but has since been removed by the nurse Reason for Continuing Indwelling Catheter: Decision to DC Catheter Urinary Catheter Date of Insertion: 03/29/23 Urinary Catheter Time of Insertion: 05:42 Date Urinary Catheter Removed: 03/31/23 Time Urinary Catheter Discontinued: 06:36 Data 04/01/23 04:28 03/31/23 02:37 Xray Ortho: Radiologist's impression: AP Pelvis: FINDINGS: Bones/joints: No fracture or malalignment or hardware complication. Soft tissues: Postoperative changes. XR/XR pelvis 1-2V* [id number] IMPRESSION: No unexpected postoperative findings. Dictated By: Colton William MD Signed By: Colton William MD Signed Date/Time: 03/30/23 1234 DD/ 1037 A&P Assessment and plan (1) History of left hip hemiarthroplasty: Jennifer is a 77 year old female patient, who we are following here in the hospital status post LEFT hip hemiarthroplasty due to subcapital hip fracture. Patient was taken to surgery on March 30, [address] Leisa Arzola MD and LEFT hip hemiarthroplasty was performed without complication. Patient was admitted to hospital postoperatively for follow-up and eventually we will plan to discharged to residential facility. Patient states that she feels she is improving and today is the best day yet . She does have postoperative discomfort however this is well-controlled with medications. She has been up working with physical therapy. At this time we will plan to with hospital stay due to other medical co-morbidities while waiting on residential facility placement. No sign or symptom of infection noted at hip. Patient is doing well and having no concerns of shortness of breath, cough or chest discomfort. We will have her continue working with physical therapy while here in the facility. We will follow-up with patient tomorrow. (2) Subcapital fracture of left hip: Qualifiers: Encounter type: initial encounter Fracture type: closed Qualified Code(s): S72.012A - Unspecified intracapsular fracture of left femur, initial encounter for closed fracture (3) Fall as cause of accidental injury at home as place of occurrence: Attestations 2 Medical Necessity Statement*: Continue admission for bridging to therapeutic anticoagulation with warfarin due to mechanical aortic valve with heparin drip. patient is status post left hip jean-claude-arthroplasty, discharge planning and arrangements. Coding Level of Care Code Acute Code for [facility] Fwd Diagnoses History of left hip hemiarthroplasty Z96.642 Closed subcapital fracture of left femur, initial encounter S72.012A Encounter type: initial encounter Fracture type: closed Fall as cause of accidental injury at home as place of occurrence W19.XXXA; Y92.009
[2023-04-01] MEDS: warfarin 2.5 mg Tablet PO ×2 (13:09)
[2023-04-01] MEDS: heparin drip 25,000 UNIT/500 ML PREMIX 18 UNIT IV (14:13)
[2023-04-01] MEDS: oxyCODONE 5 mg IR Tab/Cap PO ×2 (15:14→22:12)
[2023-04-01] MEDS: HYDROcodone-acetaminophen 10-325 mg Tablet 1 TAB PO (18:27)
[2023-04-01 19:00] LABS: Partial Thromboplastin Time 49.2 SECONDS (23.9-36.7)
--- NOTE | 2023-04-01 21:37 | P.PN_ITS ---
Subjective 2 Subjective: She states that she has been working well with physical therapy. Otherwise states would like some change of scenery feeling down in the hospital. Vitals/I&O/Wt Last Vital Signs Temp 97 F L 04/01/23 20:00 Pulse 80 04/01/23 21:13 Resp 17 04/01/23 21:13 BP 132/80 04/01/23 20:00 Pulse Ox 97 04/01/23 21:13 O2 Del Method Room Air 04/01/23 21:13 O2 Flow Rate 2 03/31/23 20:00 04/01/23 04/01/23 04/01/23 06:59 14:59 22:59 Intake Total 238.667 / 1087.600 718.567 / 718.567 582.6 / 1301.167 Output Total 375 / 375 Balance 238.667 / 1087.600 343.567 / 343.567 582.6 / 926.167 Weight last 48 hrs Weight 78.16 kg Weight 79.651 kg Physical Exam 2 Narrative: Accompanied by her daughter. Const: COMMON NORMALS: patient oriented x3 and alert GENERAL APPEARANCE: c ooperative ORIENTATION/CONSCIOUSNESS: Yes awake HENMT: COMMON NORMALS: oropharynx normal Neck/C-Spine: COMMON NORMALS: no JVD Resp: COMMON NORMALS: normal respiratory effort and clear to auscultation bilaterally AUSCULTATION: clear to auscultation bilaterally Cardio: COMMON NORMALS: no JVD, regular rhythm, S1 normal heart sound present, S2 normal heart sound present and No murmurs present (Cardio) RHYTHM: regular rhythm HEART SOUNDS: S1 normal heart sound present and S2 normal heart sound present GI: COMMON NORMALS: Normal to inspection, nondistended, normoactive bowel sounds present, Soft to palpation and non-tender PALPATION: Yes Soft to palpation Extremity: COMMON NORMALS: no joint enlargement and no pedal edema N ARRATIVE EXTREMITY EXAM: No bleeding or erythema around the left hip wound. No lower extremity edema. Extremities perfused. Neuro: COMMON NORMALS: patient oriented x3 and moves all extremities S ENSORIUM/ORIENTATION: Yes alert Skin: COMMON NORMALS: no rashes or lesions noted GENERAL SKIN EXAM: no rashes or lesions noted Urinary Catheter Management: Juarez: Cath Placed During This Visit: yes, but has since been removed by the nurse Reason for Continuing Indwelling Catheter: Decision to DC Catheter Urinary Catheter Date of Insertion: 03/29/23 Urinary Catheter Time of Insertion: 05:42 Date Urinary Catheter Removed: 03/31/23 Time Urinary Catheter Discontinued: 06:36 Data 04/01/23 04:28 03/31/23 02:37 A&P Assessment and plan (1) Aortic valve replaced: Subtherapeutic INR, requiring bridging with heparin, continue warfarin. INR reviewed today 1.36. Blood counts reviewed, hemoglobin 10.8, reviewed platelets 187. Discussed with them doubling warfarin dose today up to 5 mg. Recheck INR, blood counts in the morning. At risk of anemia with recent hip fracture and repair, need for bridging. At risk of mechanical valve thrombosis if inadequate anticoagulation. Echocardiogram done shows a normal EF with 65% EF, mild LVH with no regional wall motion abnormality, peak velocity of 2.81 m/s with peak gradient of 32 across the aortic valve with calculated area 0.8 cm?, mild MR, moderate TR with moderate pulmonary hypertension PASP of 59 mmHg. (2) Subcapital fracture of left hip: Working with physical therapy. Discussed with case management coordinator, awaiting authorization for rehabilitation. Continue to encourage incentive spirometer use. Continue analgesia as needed. PT, OT Anticoagulation to be bridged as below. She is having difficult time chewing her food, adjusted diet to dysphagia minced and moist. Qualifiers: Encounter type: initial encounter Fracture type: closed Qualified Code(s): S72.012A - Unspecified intracapsular fracture of left femur, initial encounter for closed fracture (3) Chronic anticoagulation: Additional 2.5 mg warfarin, total 5 mg today. Reviewed vitals, CBC. INR. Warfarin resumed. Recheck INR requested. Continues on heparin drip at this time. Monitor PTT. At risk of bleeding. For mechanical aortic valve. On Coumadin. Target INR 2.5-3.5. Received vitamin K on admission for hip fracture. Currently on heparin drip. Will continue heparin drip. Will restart Coumadin from tomorrow. Will bridge from heparin drip to Coumadin till patient's reaches target INR. (4) Chronic atrial fibrillation: Reviewed chemistry. Check level. Reviewed lung exam. Currently rate controlled. Continue with metoprolol 50 mg twice daily. (5) Pacemaker: (6) History of common carotid artery stent placement: (7) Essential hypertension: Plan Suspected dementia: Would benefit from formal assessment by neurology. Seems to be associated with hallucinations at home even before hospitalization. CODE STATUS: Full code. Heparin drip will suffice as DVT prophylaxis Attestations 2 Medical Necessity Statement*: Continue admission for assessment management of subtherapeutic INR and presence of mechanical valve, requiring anticoagulation bridging with acute anemia following left hip fracture and repair. Diagnoses Aortic valve replaced Z95.2 Closed subcapital fracture of left femur, initial encounter S72.012A Encounter type: initial encounter Fracture type: closed Chronic anticoagulation Z79.01 Chronic atrial fibrillation I48.20 Pacemaker Z95.0 History of common carotid artery stent placement Z98.890; Z95.828 Essential hypertension I10
[2023-04-02] VITALS (13 sets, daily range): BP systolic 113–133; BP diastolic 66–80; PULSE 74–89; RESP 15–18; TEMP 36.4–36.9; O2SAT 93–99
[2023-04-02] MEDS: CELEcoxib 200 mg Capsule PO ×3 (00:39→23:57)
[2023-04-02 01:34] LABS: Basophils % 0.2 %; Eosinophils # 0.3 10^3/uL (0.0-0.8); Eosinophils % 2.7 %; Hematocrit 29.8 % (36-47); Lymphocytes # 1.5 10^3/uL (0.8-4.8); Lymphocytes % 13.5 %; Mean Corpuscular HGB Conc 33.2 g/dL (30-55); Mean Corpuscular Volume 93.4 fl (85-98); Mean Platelet Volume 10.2 fL (7.4-10.4); Monocytes # 0.9 10^3/uL (0.2-0.9); Monocytes % 8.3 %; Neutrophils # 8.49 10^3/uL (1.8-7.7); Neutrophils % 74.9 %; Nucleated Red Blood Cells % 0 %; Platelet Count 163 10^3/cmm (157-399); Red Blood Count 3.19 10^6/uL (3.85-5.65); Red Cell Distribution Width 13.6 % (12.1-15.1); White Blood Count 11.33 10^3/uL (3.29-11.43)
[2023-04-02 01:46] LABS: INR 1.55 (0.8-1.2)
[2023-04-02 01:55] LABS: Partial Thromboplastin Time 81.8 SECONDS (23.9-36.7)
[2023-04-02] MEDS: oxyCODONE 5 mg IR Tab/Cap PO ×5 (03:02→21:36)
[2023-04-02] MEDS: calcium carbonate 500 mg Chew Tablet 1000 MG PO ×2 (07:54→17:16)
[2023-04-02] MEDS: mupirocin oint 22 gm 1 APPLIC NASAL ×2 (07:55→17:17)
[2023-04-02] MEDS: chlorhexidine gluconate 0.12% Btl 473 mL 30 ML MUCOUS MEM ×4 (07:55→21:37)
[2023-04-02] MEDS: sennosides-docusate Tablet 2 TAB PO ×2 (07:56→17:17)
[2023-04-02] MEDS: levothyroxine 200 mcg Tablet PO (07:56)
[2023-04-02] MEDS: amlodipine 5 mg Tablet PO (07:57)
[2023-04-02] MEDS: atorvastatin 40 mg Tablet PO (07:57)
[2023-04-02] MEDS: donepezil 5 MG Tablet PO (07:57)
[2023-04-02] MEDS: pantoprazole DR 40 mg Tablet PO (07:57)
[2023-04-02] MEDS: multivitamin therapeutic Tablet 1 TAB PO (07:58)
[2023-04-02] MEDS: iron polysaccharide complex 150 mg Capsule PO ×2 (07:58→17:17)
[2023-04-02] MEDS: cholecalciferol (vitamin D3) 1,000 unit Tablet 1000 UNIT PO (07:58)
[2023-04-02 08:20] LABS: Partial Thromboplastin Time 57.6 SECONDS (23.9-36.7)
[2023-04-02] MEDS: metoprolol tartrate 50 mg Tablet PO ×2 (10:09→21:36)
[2023-04-02] MEDS: cyanocobalamin 1,000 mcg Tablet 2500 MCG PO (10:10)
--- NOTE | 2023-04-02 13:35 | PC.SOCIAL ---
IMM Updated Updated pt on IMM. No questions voiced. Provided pt a copy. Initialed, dated, & timed copy in chart.
[2023-04-02] MEDS: warfarin 3 mg Tablet PO (14:22)
[2023-04-02 14:51] LABS: Partial Thromboplastin Time 66.5 SECONDS (23.9-36.7)
[2023-04-02] MEDS: heparin drip 25,000 UNIT/500 ML PREMIX 18 UNIT IV (17:56)
[2023-04-02 21:06] LABS: Partial Thromboplastin Time 66.4 SECONDS (23.9-36.7)
--- NOTE | 2023-04-02 21:22 | P.PN_ITS ---
Subjective 2 Subjective: Patient up and resting in chair at bedside, with family present in the room at time of rounds. Patient states that she has been doing well and her postoperative pain has been controlled with oral medications. She has been working well with physical therapy and has increased her ambulation with the use of a walker today. Her family is present at this visit today. Patient states that she is ready for discharge and is feeling a little sad being in the hospital around the holidays. Patient is doing well orthopedically. Maintains inpatient status due to medical comorbidities and anticoagulation therapies. Medications: Reviewed: Yes Vitals/I&O/Wt Last Vital Signs Temp 97.7 F 04/02/23 19:21 Pulse 89 04/02/23 20:45 Resp 18 04/02/23 20:45 BP 133/77 04/02/23 19:21 Pulse Ox 96 04/02/23 20:45 O2 Del Method Room Air 04/02/23 20:45 O2 Flow Rate 2 03/31/23 20:00 04/02/23 04/02/23 04/02/23 06:59 14:59 22:59 Intake Total 115.267 / 1416.434 477 / 477 165.133 / 642.133 Balance 115.267 / 1041.434 477 / 477 165.133 / 642.133 Weight last 48 hrs Weight 167 lb 9 oz Weight 172 lb 5 oz Physical Exam 2 Const: COMMON NORMALS: no acute distress, average body habitus, patient oriented x3 and alert GENERAL APPEARANCE: cooperative and comfortable O RIENTATION/CONSCIOUSNESS: Yes awake HENMT: COMMON NORMALS: normocephalic and atraumatic HEAD & SCALP: n ormocephalic and atraumatic Chest: COMMONS NORMALS: normal inspection of the chest Resp: COMMON NORMALS: normal respiratory effort EFFORT & INSPECTION: Yes able to speak in complete sentences and Yes symmetric chest movement Extremity: LEFT LOWER EXTREMITY: Yes hip joint (No significant swelling or ecchymosis) Left hip: Yes inspection (Dressing is dry and intact), Yes ROM (Not evaluated) and Yes neurovascular exam (No evidence of DVT) Neuro: COMMON NORMALS: patient oriented x3 SENSORIUM/ORIENTATION: Yes alert Psych: COMMON NORMALS: mental status grossly normal APPEARANCE: Yes grossly normal ATTITUDE: Yes calm and Yes engaged ATTENTION/CONCENTRATION: Yes attention grossly intact Skin: COMMON NORMALS: no rashes or lesions noted GENERAL SKIN EXAM: no rashes or lesions noted Urinary Catheter Management: Juarez: Cath Placed During This Visit: yes, but has since been removed by the nurse Reason for Continuing Indwelling Catheter: Decision to DC Catheter Urinary Catheter Date of Insertion: 03/29/23 Urinary Catheter Time of Insertion: 05:42 Date Urinary Catheter Removed: 03/31/23 Time Urinary Catheter Discontinued: 06:36 Data 04/02/23 01:25 03/31/23 02:37 A&P Assessment and plan (1) History of left hip hemiarthroplasty: Patient is doing well following left bipolar hip arthroplasty. She is working with physical therapy. At this time we will plan to continue hospital stay due to other medical co-morbidities while waiting on assisted facility placement and therapeutic INR level. No sign or symptom of infection noted at hip. Patient is doing well and having no concerns of shortness of breath, cough or chest discomfort. We will have her continue working with physical therapy while here in the facility. We will follow-up with patient tomorrow. Patient requires ongoing hospital care as she rehabilitates from this hip fracture. (2) Fall as cause of accidental injury at home as place of occurrence: (3) Subcapital fracture of left hip: Qualifiers: Encounter type: initial encounter Fracture type: closed Qualified Code(s): S72.012A - Unspecified intracapsular fracture of left femur, initial encounter for closed fracture Attestations 2 Medical Necessity Statement*: Continue admission for bridging to therapeutic anticoagulation due to mechanical aortic valve with heparin drip. patient is status post left hip jean-claude- arthroplasty, discharge planning and arrangements. Coding Level of Care Code Acute Code for [facility] Fwd Diagnoses History of left hip hemiarthroplasty Z96.642 Fall as cause of accidental injury at home as place of occurrence W19.XXXA; Y92.009 Closed subcapital fracture of left femur, initial encounter S72.012A Encounter type: initial encounter Fracture type: closed
--- NOTE | 2023-04-02 22:57 | PM.PN ---
Subjective Subjective: She reports she is doing better today. Continues to work with therapy. Medications: Reviewed: Yes Vitals/I&O/Wt Last Vital Signs Temp 97.7 F 04/02/23 19:21 Pulse 89 04/02/23 20:45 Resp 16 04/02/23 21:36 BP 133/77 04/02/23 19:21 Pulse Ox 96 04/02/23 20:45 O2 Del Method Room Air 04/02/23 20:45 O2 Flow Rate 2 03/31/23 20:00 04/02/23 04/02/23 04/02/23 06:59 14:59 22:59 Intake Total 115.267 / 1416.434 477 / 477 229.633 / 706.633 Output Total 100 / 100 Balance 115.267 / 1041.434 477 / 477 129.633 / 606.633 Weight last 48 hrs Weight 76.005 kg Weight 78.16 kg Physical Exam Narrative: Accompanied by her daughter. Const: COMMON NORMALS: patient oriented x3 and alert GENERAL APPEARANCE: cooperative ORIENTATION/CONSCIOUSNESS: Yes awake HENMT: COMMON NORMALS: oropharynx normal Neck/C-Spine: COMMON NORMALS: no JVD Resp: COMMON NORMALS: normal respiratory effort and clear to auscultation bilaterally AUSCULTATION: clear to auscultation bilaterally Cardio: COMMON NORMALS: no JVD, regular rhythm, S1 normal heart sound present, S2 normal heart sound present and No murmurs present (Cardio) RHYTHM: regular rhythm HEART SOUNDS: S1 normal heart sound present and S2 normal heart sound present GI: COMMON NORMALS: Normal to inspection, nondistended, normoactive bowel sounds present, Soft to palpation and non-tender PALPATION: Yes Soft to palpation Extremity: COMMON NORMALS: no joint enlargement and no pedal edema NARRATIVE EXTREMITY EXAM: No bleeding or erythema around the left hip wound. No lower extremity edema. Extremities perfused. Neuro: COMMON NORMALS: patient oriented x3 and moves all extremities SENSORIUM/ORIENTATION: Yes alert Skin: COMMON NORMALS: no rashes or lesions noted GENERAL SKIN EXAM: no rashes or lesions noted Urinary Catheter Management: Juarez: Cath Placed During This Visit: yes, but has since been removed by the nurse Reason for Continuing Indwelling Catheter: Decision to DC Catheter Urinary Catheter Date of Insertion: 03/29/23 Urinary Catheter Time of Insertion: 05:42 Date Urinary Catheter Removed: 12/18/23 Time Urinary Catheter Discontinued: 06:36 Data 04/02/23 01:25 03/31/23 02:37 A&P Assessment and plan (1) Aortic valve replaced: Again subtherapeutic INR, reviewed INR. Will give additional dose of 3 mg warfarin as discussed with her on top of 2.5 mg scheduled. Repeat INR. Reviewed hemoglobin, platelets. Reviewed case therapistcommercial manager. Discussed with them doubling warfarin dose today up to 5 mg. Recheck INR, blood counts in the morning. At risk of anemia with recent hip fracture and repair, need for bridging. At risk of mechanical valve thrombosis if inadequate anticoagulation. Echocardiogram done shows a normal EF with 65% EF, mild LVH with no regional wall motion abnormality, peak velocity of 2.81 m/s with peak gradient of 32 across the aortic valve with calculated area 0.8 cm?, mild MR, moderate TR with moderate pulmonary hypertension PASP of 59 mmHg. (2) Subcapital fracture of left hip: Reviewed case therapistcommercial manager. She is accepted to go to rehabilitation. Pending bridging of warfarin to therapeutic. Working with physical therapy. Continue to encourage incentive spirometer use. Continue analgesia as needed. PT, OT Qualifiers: Encounter type: initial encounter Fracture type: closed Qualified Code(s): S72.012A - Unspecified intracapsular fracture of left femur, initial encounter for closed fracture (3) Chronic anticoagulation: Additional 3 mg warfarin, total 5 mg today. Reviewed vitals, CBC. INR. Warfarin resumed. Recheck INR requested. Continues on heparin drip at this time. Monitor PTT. At risk of bleeding. For mechanical aortic valve. On Coumadin. Target INR 2.5-3.5. Received vitamin K on admission for hip fracture. Currently on heparin drip. Will continue heparin drip. Will restart Coumadin from tomorrow. Will bridge from heparin drip to Coumadin till patient's reaches target INR. (4) Chronic atrial fibrillation: Reviewed chemistry. Check level. Reviewed lung exam. Currently rate controlled. Continue with metoprolol 50 mg twice daily. (5) Pacemaker: (6) History of common carotid artery stent placement: (7) Essential hypertension: Plan Suspected dementia: Would benefit from formal assessment by neurology. Seems to be associated with hallucinations at home even before hospitalization. CODE STATUS: Full code. Heparin drip will suffice as DVT prophylaxis Attestations Medical Necessity Statement*: Continue admission for bridging of anticoagulation to therapeutic with warfarin due to mechanical heart valve. Postdischarge planning and arrangements for and High MDM includes described risk of complication, morbidity or mortality of management as documented Diagnoses Aortic valve replaced Z95.2 Closed subcapital fracture of left femur, initial encounter S72.012A Encounter type: initial encounter Fracture type: closed Chronic anticoagulation Z79.01 Chronic atrial fibrillation I48.20 Pacemaker Z95.0 History of common carotid artery stent placement Z98.890; Z95.828 Essential hypertension I10
[2023-04-03] VITALS (12 sets, daily range): BP systolic 123–149; BP diastolic 67–86; PULSE 83–92; RESP 15–18; TEMP 36.4–36.9; O2SAT 96–98
[2023-04-03] MEDS: oxyCODONE 5 mg IR Tab/Cap PO ×5 (02:07→21:03)
[2023-04-03 03:23] LABS: INR 1.68 (0.8-1.2)
[2023-04-03 03:24] LABS: Partial Thromboplastin Time 66.9 SECONDS (23.9-36.7)
[2023-04-03] MEDS: acetaminophen 500 mg Tablet PO (04:31)
[2023-04-03 09:03] LABS: Partial Thromboplastin Time 72.9 SECONDS (23.9-36.7)
[2023-04-03] MEDS: pantoprazole DR 40 mg Tablet PO (10:13)
[2023-04-03] MEDS: multivitamin therapeutic Tablet 1 TAB PO (10:13)
[2023-04-03] MEDS: iron polysaccharide complex 150 mg Capsule PO ×2 (10:13→17:17)
[2023-04-03] MEDS: atorvastatin 40 mg Tablet PO (10:13)
[2023-04-03] MEDS: cholecalciferol (vitamin D3) 1,000 unit Tablet 1000 UNIT PO (10:13)
[2023-04-03] MEDS: amlodipine 5 mg Tablet PO (10:13)
[2023-04-03] MEDS: donepezil 5 MG Tablet PO (10:13)
[2023-04-03] MEDS: levothyroxine 200 mcg Tablet PO (10:13)
[2023-04-03] MEDS: cyanocobalamin 1,000 mcg Tablet 2500 MCG PO (10:14)
[2023-04-03] MEDS: sennosides-docusate Tablet 2 TAB PO ×2 (10:14→17:17)
[2023-04-03] MEDS: metoprolol tartrate 50 mg Tablet PO ×2 (10:14→21:03)
[2023-04-03] MEDS: calcium carbonate 500 mg Chew Tablet 1000 MG PO ×2 (10:14→17:17)
[2023-04-03] MEDS: chlorhexidine gluconate 0.12% Btl 473 mL 30 ML MUCOUS MEM ×4 (10:16→21:05)
[2023-04-03] MEDS: CELEcoxib 200 mg Capsule PO (13:13)
[2023-04-03] MEDS: warfarin 5 mg Tablet PO (13:13)
[2023-04-03 15:54] LABS: Partial Thromboplastin Time 50.4 SECONDS (23.9-36.7)
[2023-04-03] MEDS: heparin drip 25,000 UNIT/500 ML PREMIX 19 UNIT IV (21:40)
--- NOTE | 2023-04-03 22:15 | P.PN_ITS ---
Subjective 2 Subjective: Patient up and resting in chair at bedside. Post-operative pain controlled with oral medications only. She has been working well with physical therapy and has increased her ambulation with the use of a walker today. Patient states that she is ready for discharge and is feeling a little sad being in the hospital around the holidays. Patient is doing well orthopedically. Vitals/I&O/Wt Last Vital Signs Temp 97.6 F 04/03/23 19:35 Pulse 84 04/03/23 21:08 Resp 16 04/03/23 21:03 BP 123/76 04/03/23 19:35 Pulse Ox 96 04/03/23 21:08 O2 Del Method Room Air 04/03/23 21:08 O2 Flow Rate 2 03/31/23 20:00 04/03/23 04/03/23 04/03/23 06:59 14:59 22:59 Intake Total 106.5 / 813.133 701.7 / 701.7 767.3 / 1469.0 Balance 106.5 / 713.133 701.7 / 701.7 767.3 / 1469.0 Weight last 48 hrs Weight 167 lb 9 oz Physical Exam 2 Const: COMMON NORMALS: no acute distress, average body habitus, patient oriented x3 and alert GENERAL APPEARANCE: cooperative and comfortable O RIENTATION/CONSCIOUSNESS: Yes awake HENMT: COMMON NORMALS: normocephalic and atraumatic HEAD & SCALP: n ormocephalic and atraumatic Chest: COMMONS NORMALS: normal inspection of the chest Resp: COMMON NORMALS: normal respiratory effort EFFORT & INSPECTION: Yes able to speak in complete sentences and Yes symmetric chest movement Extremity: LEFT LOWER EXTREMITY: Yes hip joint (No significant swelling or ecchymosis) Left hip: Yes inspection (Dressing is dry and intact), Yes ROM (resting with hip flexed to 90. ) and Yes neurovascular exam (No evidence of DVT) and Yes lower leg Left lower leg: Yes special tests Left lower leg special tests: Isaura's sign: Negative Neuro: COMMON NORMALS: patient oriented x3 SENSORIUM/ORIENTATION: Yes alert Psych: COMMON NORMALS: mental status grossly normal APPEARANCE: Yes grossly normal ATTITUDE: Yes calm and Yes engaged ATTENTION/CONCENTRATION: Yes attention grossly intact Skin: COMMON NORMALS: no rashes or lesions noted GENERAL SKIN EXAM: no rashes or lesions noted Urinary Catheter Management: Juarez: Cath Placed During This Visit: yes, but has since been removed by the nurse Reason for Continuing Indwelling Catheter: Decision to DC Catheter Urinary Catheter Date of Insertion: 03/29/23 Urinary Catheter Time of Insertion: 05:42 Date Urinary Catheter Removed: 03/31/23 Time Urinary Catheter Discontinued: 06:36 Data 04/02/23 01:25 03/31/23 02:37 A&P Assessment and plan (1) History of left hip hemiarthroplasty: Patient is doing well following left bipolar hip arthroplasty. She is working with physical therapy. At this time we will plan to continue hospital stay due to other medical co-morbidities while waiting on halfway facility placement and therapeutic INR level. No sign or symptom of infection noted at hip. Continue working with PT for ambulation, gait and ROM. (2) Fall as cause of accidental injury at home as place of occurrence: (3) Subcapital fracture of left hip: Qualifiers: Encounter type: initial encounter Fracture type: closed Qualified Code(s): S72.012A - Unspecified intracapsular fracture of left femur, initial encounter for closed fracture Attestations 2 Medical Necessity Statement*: Continue admission for bridging of anticoagulation to therapeutic with warfarin due to mechanical heart valve. Postdischarge planning and arrangements. Coding Level of Care Code Acute Code for Chg Fwd Diagnoses History of left hip hemiarthroplasty Z96.642 Fall as cause of accidental injury at home as place of occurrence W19.XXXA; Y92.009 Closed subcapital fracture of left femur, initial encounter S72.012A Encounter type: initial encounter Fracture type: closed
--- NOTE | 2023-04-03 22:15 | PM.PN ---
Subjective Subjective: She states she is doing well. Denies any new complaints or symptoms today. Vitals/I&O/Wt Last Vital Signs Temp 97.6 F 04/03/23 19:35 Pulse 84 04/03/23 21:08 Resp 16 04/03/23 21:03 BP 123/76 04/03/23 19:35 Pulse Ox 96 04/03/23 21:08 O2 Del Method Room Air 04/03/23 21:08 O2 Flow Rate 2 03/31/23 20:00 04/03/23 04/03/23 04/03/23 06:59 14:59 22:59 Intake Total 106.5 / 813.133 701.7 / 701.7 767.3 / 1469.0 Balance 106.5 / 713.133 701.7 / 701.7 767.3 / 1469.0 Weight last 48 hrs Weight 76.005 kg Physical Exam Const: COMMON NORMALS: patient oriented x3 and alert GENERAL APPEARANCE: cooperative ORIENTATION/CONSCIOUSNESS: Yes awake HENMT: COMMON NORMALS: oropharynx normal Neck/C-Spine: COMMON NORMALS: no JVD Resp: COMMON NORMALS: normal respiratory effort and clear to auscultation bilaterally AUSCULTATION: clear to auscultation bilaterally Cardio: COMMON NORMALS: no JVD, regular rhythm, S1 normal heart sound present, S2 normal heart sound present and No murmurs present (Cardio) RHYTHM: regular rhythm HEART SOUNDS: S1 normal heart sound present and S2 normal heart sound present GI: COMMON NORMALS: Normal to inspection, nondistended, normoactive bowel sounds present, Soft to palpation and non-tender PALPATION: Yes Soft to palpation Extremity: COMMON NORMALS: no joint enlargement and no pedal edema NARRATIVE EXTREMITY EXAM: No lower extremity edema. Extremities perfused. Neuro: COMMON NORMALS: patient oriented x3 and moves all extremities SENSORIUM/ORIENTATION: Yes alert Skin: COMMON NORMALS: no rashes or lesions noted GENERAL SKIN EXAM: no rashes or lesions noted Urinary Catheter Management: Juarez: Cath Placed During This Visit: yes, but has since been removed by the nurse Reason for Continuing Indwelling Catheter: Decision to DC Catheter Urinary Catheter Date of Insertion: 03/29/23 Urinary Catheter Time of Insertion: 05:42 Date Urinary Catheter Removed: 03/31/23 Time Urinary Catheter Discontinued: 06:36 Data 04/02/23 01:25 03/31/23 02:37 A&P Assessment and plan (1) Aortic valve replaced: Reviewed vitals, reviewed INR. 1.68. It appears she did not receive her daily 2.5 mg dose was stopped yesterday. Discussed with her. Discussed with pharmacist. Giving 5 mg today. . Recheck INR. Monitor for any bleeding with both heparin and warfarin on board. Recheck CBC. Has been approved for rehabilitation SNF. Reviewed manager of case note. Discussed with them doubling warfarin dose today up to 5 mg. Recheck INR, blood counts in the morning. At risk of anemia with recent hip fracture and repair, need for bridging. At risk of mechanical valve thrombosis if inadequate anticoagulation. Echocardiogram done shows a normal EF with 65% EF, mild LVH with no regional wall motion abnormality, peak velocity of 2.81 m/s with peak gradient of 32 across the aortic valve with calculated area 0.8 cm?, mild MR, moderate TR with moderate pulmonary hypertension PASP of 59 mmHg. (2) Subcapital fracture of left hip: Reviewed manager of casemanager of environmental services. She is accepted to go to rehabilitation. Pending bridging of warfarin to therapeutic. Working with physical therapy. Continue to encourage incentive spirometer use. Continue analgesia as needed. PT, OT Qualifiers: Encounter type: initial encounter Fracture type: closed Qualified Code(s): S72.012A - Unspecified intracapsular fracture of left femur, initial encounter for closed fracture (3) Chronic anticoagulation: Additional 5 mg today. Reviewed vitals, CBC. INR. Warfarin resumed. Recheck INR requested. Continues on heparin drip at this time. Monitor PTT. At risk of bleeding. For mechanical aortic valve. On Coumadin. Target INR 2.5-3.5. Received vitamin K on admission for hip fracture. Currently on heparin drip. Will continue heparin drip. Will restart Coumadin from tomorrow. Will bridge from heparin drip to Coumadin till patient's reaches target INR. (4) Chronic atrial fibrillation: Reviewed chemistry. Check level. Reviewed lung exam. Currently rate controlled. Continue with metoprolol 50 mg twice daily. (5) Pacemaker: (6) History of common carotid artery stent placement: (7) Essential hypertension: Plan Suspected dementia: Would benefit from formal assessment by neurology. Seems to be associated with hallucinations at home even before hospitalization. CODE STATUS: Full code. Heparin drip will suffice as DVT prophylaxis Attestations Medical Necessity Statement*: Continue admission for bridging of anticoagulation to therapeutic with warfarin due to mechanical heart valve. Postdischarge planning and arrangements. and High MDM includes described risk of complication, morbidity or mortality of management as documented Diagnoses Aortic valve replaced Z95.2 Closed subcapital fracture of left femur, initial encounter S72.012A Encounter type: initial encounter Fracture type: closed Chronic anticoagulation Z79.01 Chronic atrial fibrillation I48.20 Pacemaker Z95.0 History of common carotid artery stent placement Z98.890; Z95.828 Essential hypertension I10
[2023-04-03 22:57] LABS: Partial Thromboplastin Time 98.2 SECONDS (23.9-36.7)
[2023-04-04] VITALS (8 sets, daily range): BP systolic 112–142; BP diastolic 67–85; PULSE 80–91; RESP 16–20; TEMP 36.4–37.1; O2SAT 97–99
[2023-04-04] MEDS: CELEcoxib 200 mg Capsule PO ×2 (00:33→13:32)
[2023-04-04] MEDS: oxyCODONE 5 mg IR Tab/Cap PO ×3 (02:00→10:21)
[2023-04-04 04:51] LABS: Basophils % 0.4 %; Eosinophils # 0.2 10^3/uL (0.0-0.8); Eosinophils % 1.9 %; Hematocrit 33.5 % (36-47); Lymphocytes # 1.4 10^3/uL (0.8-4.8); Lymphocytes % 12.5 %; Mean Corpuscular HGB Conc 32.8 g/dL (30-55); Mean Corpuscular Hemoglobin 30.6 pg (27-33); Mean Corpuscular Volume 93.1 fl (85-98); Mean Platelet Volume 9.5 fL (7.4-10.4); Monocytes # 0.8 10^3/uL (0.2-0.9); Monocytes % 6.9 %; Neutrophils # 8.59 10^3/uL (1.8-7.7); Neutrophils % 77.7 %; Nucleated Red Blood Cells % 0 %; Platelet Count 223 10^3/cmm (157-399); Red Cell Distribution Width 13.9 % (12.1-15.1); White Blood Count 11.05 10^3/uL (3.29-11.43)
[2023-04-04 05:04] LABS: INR 2.04 (0.8-1.2)
[2023-04-04 05:56] LABS: Partial Thromboplastin Time 66.6 SECONDS (23.9-36.7)
[2023-04-04] MEDS: pantoprazole DR 40 mg Tablet PO (10:20)
[2023-04-04] MEDS: calcium carbonate 500 mg Chew Tablet 1000 MG PO (10:20)
[2023-04-04] MEDS: sennosides-docusate Tablet 2 TAB PO (10:20)
[2023-04-04] MEDS: donepezil 5 MG Tablet PO (10:20)
[2023-04-04] MEDS: cyanocobalamin 1,000 mcg Tablet 2500 MCG PO (10:20)
[2023-04-04] MEDS: iron polysaccharide complex 150 mg Capsule PO (10:21)
[2023-04-04] MEDS: metoprolol tartrate 50 mg Tablet PO (10:21)
[2023-04-04] MEDS: cholecalciferol (vitamin D3) 1,000 unit Tablet 1000 UNIT PO (10:21)
[2023-04-04] MEDS: amlodipine 5 mg Tablet PO (10:21)
[2023-04-04] MEDS: levothyroxine 200 mcg Tablet PO (10:21)
[2023-04-04] MEDS: multivitamin therapeutic Tablet 1 TAB PO (10:21)
[2023-04-04] MEDS: atorvastatin 40 mg Tablet PO (10:21)
[2023-04-04] MEDS: mupirocin oint 22 gm 1 APPLIC NASAL (10:22)
[2023-04-04] MEDS: chlorhexidine gluconate 0.12% Btl 473 mL 30 ML MUCOUS MEM ×2 (10:22→13:32)
[2023-04-04 11:42] LABS: Partial Thromboplastin Time 61.3 SECONDS (23.9-36.7)
--- NOTE | 2023-04-04 11:43 | PC.SOCIAL ---
IMM Updated Updated pt on IMM. no questions voiced. Provided pt a copy. Initialed, dated, & timed copy in chart.
--- NOTE | 2023-04-04 12:34 | PM.DCS ---
Discharge Providers Date of Admission: 03/29/23 06:01 Date of Discharge: April 04, 2023 Attending Provider at Admission: Radha Cole MD Attending Provider at Discharge: Enrique Machuca Primary Care Provider: Ruy Palacio MD Diagnoses at Discharge Discharge Diagnosis (1) Aortic valve replaced: Status: Chronic Permanent problem details: 2000. Mechanical (2) Subcapital fracture of left hip: Status: Acute Qualifiers: Encounter type: initial encounter Fracture type: closed Qualified Code(s): S72.012A - Unspecified intracapsular fracture of left femur, initial encounter for closed fracture (3) Chronic anticoagulation: Status: Acute (4) Chronic atrial fibrillation: Status: Acute Permanent problem details: Patient has history of intermittent atrial fibrillation. (5) Pacemaker: Status: Chronic (6) History of common carotid artery stent placement: Status: Acute Permanent problem details: Clinically stable (7) Essential hypertension: Status: Acute Permanent problem details: Her blood pressure has been fluctuating (8) Fall as cause of accidental injury at home as place of occurrence: Status: Acute (9) History of left hip hemiarthroplasty: Status: Acute Permanent problem details: Date of procedure: March 30, 2023. Surgeon: Dr. Leisa Arzola MD. Pre-op diagnosis: Left subcapital hip fracture, impacted and slightly angulated. Post-op diagnosis: Left subcapital hip fracture, impacted and slightly angulated Procedure done: Left bipolar hip arthroplasty Implants: The [employer] total hip system with a size 49 mm universal head bipolar component with 28 mm inner diameter and a Maria Elena 28 mm outer diameter +4 mm offset V40 LFIT Femoral head, and a size 6 Accolade II 127? neck angle hip stem Reason for Visit Reason for Visit: fall, hip pain Brief History: Pleasant 77 year old female presented to the hospital after sustaining a fall. Patient is stating that she was going towards the kitchen around 11 PM when she lost her balance and fell on the floor, she is attributing her fall to the rug in her dining area, she did not lose consciousness, no chest pain or shortness of breath. On Coumadin with history of mechanical aortic valve, atrial fibrillation. Other history including carotid stent, pacemaker. Hospital Course Hospital Course Received vitamin K on presentation, INR reversed, underwent ORIF, did well subsequently, discharging to rehabilitation with follow-up with orthopedicsbut required bridging of anticoagulation with heparin drip, target INR 2.5-3.5. INR has been improving, today over 2. She is continued on increased dose of warfarin currently staggering 4 and 3 mg instead of the usual 3 and 2 mg. Follow-up INR daily next 4 days, then switch to twice weekly unless. Adjust accordingly depending on INR. Physical Exam Narrative: Awake, alert, sitting up at bedside, pleasant, conversant, in good spirits. Const: COMMON NORMALS: patient oriented x3 and alert GENERAL APPEARANCE: cooperative ORIENTATION/CONSCIOUSNESS: Yes awake HENMT: COMMON NORMALS: oropharynx normal Neck/C-Spine: COMMON NORMALS: no JVD Resp: COMMON NORMALS: normal respiratory effort and clear to auscultation bilaterally AUSCULTATION: clear to auscultation bilaterally Cardio: COMMON NORMALS: no JVD, regular rhythm, S1 normal heart sound present, S2 normal heart sound present and No murmurs present (Cardio) RHYTHM: regular rhythm HEART SOUNDS: S1 normal heart sound present and S2 normal heart sound present GI: COMMON NORMALS: Normal to inspection, nondistended, normoactive bowel sounds present, Soft to palpation and non-tender PALPATION: Yes Soft to palpation Extremity: COMMON NORMALS: no joint enlargement and no pedal edema NARRATIVE EXTREMITY EXAM: No lower extremity edema. Extremities perfused. Neuro: COMMON NORMALS: patient oriented x3 and moves all extremities SENSORIUM/ORIENTATION: Yes alert Skin: COMMON NORMALS: no rashes or lesions noted GENERAL SKIN EXAM: no rashes or lesions noted Urinary Catheter Management: Juarez: Cath Placed During This Visit: yes, but has since been removed by the nurse Reason for Continuing Indwelling Catheter: Decision to DC Catheter Urinary Catheter Date of Insertion: 03/29/23 Urinary Catheter Time of Insertion: 05:42 Date Urinary Catheter Removed: 03/31/23 Time Urinary Catheter Discontinued: 06:36 Discharge Data Studies Completed and Pending Completed Studies During Hospitalization Category Date Time Status CT abdomen pelvis wo con [id number] Stat Cat Scan 03/29/23 02:10 Completed XR hip LT 2-3V wo/w pel* [id number] Routine Exams 03/29/23 09:01 Completed XR pelvis 1-2V* [id number] Routine Exams 03/30/23 10:36 Completed CV. echo complete* [id number] Routine Ultrasound 03/29/23 11:34 Completed Pending at discharge Category Date Time Status ABO/Rh Type Routine Lab 03/29/23 08:30 Results Complete Crossmatch Routine Lab 03/29/23 08:30 Results Frozen Plasma FZ <24 1st Cont Routine Lab 03/29/23 08:30 Results Prothrombin Time INR AM LABS Lab 04/05/23 04:00 Ordered Prothrombin Time INR AM LABS Lab 04/06/23 04:00 Ordered Prothrombin Time INR AM LABS Lab 04/07/23 04:00 Ordered SARS Covid-2 Antigen Stat Lab 04/04/23 12:10 Received Radiology Impressions Abdomen/Pelvis CT 03/29/23 02:10 IMPRESSION: 1. Acute left hip fracture. 2. Negative for abdominopelvic visceral injury. Hip/Pelvis X-Ray 03/29/23 09:01 IMPRESSION: Fracture left femoral neck. Pelvis X-Ray 03/30/23 10:36 IMPRESSION: No unexpected postoperative findings. Laboratory Results WBC 11.05 10^3/uL (3.29-11.43) 04/04/23 04:10 RBC 3.60 10^6/uL (3.85-5.65) L 04/04/23 04:10 Hgb 11.00 g/dL (11.27-16.99) L 04/04/23 04:10 Hct 33.5 % (36-47) L 04/04/23 04:10 MCV 93.1 fl (85-98) 04/04/23 04:10 MCH 30.6 pg (27-33) 04/04/23 04:10 MCHC 32.8 g/dL (30-55) 04/04/23 04:10 RDW 13.9 % (12.1-15.1) 04/04/23 04:10 Plt Count 223 10^3/cmm (157-399) 04/04/23 04:10 MPV 9.5 fL (7.4-10.4) 04/04/23 04:10 Neut % (Auto) 77.7 % 04/04/23 04:10 Lymph % (Auto) 12.5 % 04/04/23 04:10 [place] % (Auto) 6.9 % 04/04/23 04:10 Eos % (Auto) 1.9 % 04/04/23 04:10 Baso % (Auto) 0.4 % 04/04/23 04:10 Neut # (Auto) 8.59 10^3/uL (1.8-7.7) H 04/04/23 04:10 Lymph # (Auto) 1.4 10^3/uL (0.8-4.8) 04/04/23 04:10 [place] # (Auto) 0.8 10^3/uL (0.2-0.9) 04/04/23 04:10 Eos # (Auto) 0.2 10^3/uL (0.0-0.8) 04/04/23 04:10 Baso # (Auto) 0.0 10^3/uL (0.0-0.1) 04/04/23 04:10 Nucleated RBC % (auto) 0 % 04/04/23 04:10 Nucleated RBCs # 0.0 /100WBC 04/04/23 04:10 PT 23.80 SECONDS (12.1-14.9) H 04/04/23 04:10 INR 2.04 (0.8-1.2) H 04/04/23 04:10 APTT 61.3 SECONDS (23.9-36.7) H 04/04/23 11:17 Sodium 139 mmol/L (136-145) 03/31/23 02:37 Potassium 4.2 mmol/L (3.5-5.1) 03/31/23 02:37 Chloride 107 mmol/L (98-107) 03/31/23 02:37 Carbon Dioxide 24 mmol/L (22-29) 03/31/23 02:37 Anion Gap 12.2 (5-19) 03/31/23 02:37 BUN 22 mg/dL (8-23) 03/31/23 02:37 Creatinine 0.9 mg/dL (0.5-0.9) 03/31/23 02:37 GFR Calculation Not Reportable 03/31/23 02:37 Glucose 137 mg/dL (65-115) H 03/31/23 02:37 Estimat Average Glucose 105 03/30/23 05:53 Hemoglobin A1c 5.3 % (4.0-6.0) 03/30/23 05:53 Calculated Osmolality 293 mOsm/kg (285-295) 03/31/23 02:37 Calcium 8.8 mg/dL (8.5-10.5) 03/31/23 02:37 Magnesium 2.1 mg/dL (1.7-2.3) 04/01/23 04:28 Iron Cancelled 03/29/23 08:30 TIBC Cancelled 03/29/23 08:30 % Saturation Cancelled 03/29/23 08:30 Unsat Iron Binding Cancelled 03/29/23 08:30 Total Bilirubin 1.5 mg/dL (0.15-1.2) H 03/30/23 05:53 AST 23 U/L (0-32) 03/30/23 05:53 ALT 25 U/L (0-33) 03/30/23 05:53 Alkaline Phosphatase 79 U/L (35-105) 03/30/23 05:53 Total Protein 6.4 g/dL (6.6-8.7) L 03/30/23 05:53 Albumin 3.7 g/dL (3.5-5.2) 03/30/23 05:53 Globulin 2.7 g/dL (1.3-4.6) 03/30/23 05:53 Triglycerides 71 mg/dL (0-150) 03/30/23 05:53 Cholesterol 99 mg/dL (0-200) 03/30/23 05:53 LDL Cholesterol, Calc 28 mg/dL (50-129) L 03/30/23 05:53 Total VLDL Cholesterol 14 mg/dL (0-30) 03/30/23 05:53 HDL Cholesterol 57 mg/dL (60-100) L 03/30/23 05:53 Cholesterol/HDL Ratio 1.74 mg/dL (0.0-4.40) 03/30/23 05:53 Vitamin B12 Cancelled 03/29/23 08:30 Folate > 20.0 ng/mL (4.8-37.3) 03/30/23 05:53 Blood Type A Positive 03/29/23 08:30 Rho(D) Type Rh positive 03/29/23 08:30 Vitals Last Vital Signs Temp 97.5 F L 04/04/23 11:49 Pulse 80 04/04/23 11:49 Resp 20 H 04/04/23 11:49 BP 112/67 04/04/23 11:49 Pulse Ox 99 04/04/23 11:49 O2 Del Method Room Air 04/04/23 11:49 O2 Flow Rate 2 03/31/23 20:00 Discharge Plan Discharge Patient Disposition: Xfer SNF Condition: Stable Prescriptions: New hydrocodone-acetaminophen 10-325 mg tablet 1 tab PO Q6H PRN (Reason: pain) 5 Days Qty: 20 0RF Continued multivitamin Tablet 1 tab PO DAILY sennosides-docusate sodium 8.6-50 mg tablet 1 tab PO DAILY cyclobenzaprine 10 mg tablet 10 mg PO TID PRN (Reason: muscle spasm) 10 Days Qty: 30 3RF cholecalciferol (vitamin D3) 25 mcg (1,000 unit) capsule 25 mcg PO DAILY metoprolol tartrate 25 mg tablet 37.5 mg PO BID Qty: 270 3RF amlodipine 5 mg tablet 5 mg PO DAILY Qty: 90 2RF clopidogrel [Plavix] 75 mg tablet 75 mg PO DAILY Qty: 90 3RF levothyroxine 200 mcg tablet 200 mcg PO DAILY Qty: 90 3RF spironolactone 25 mg tablet 25 mg PO DAILY Qty: 90 3RF furosemide 40 mg tablet 40 mg PO BID Qty: 180 3RF potassium chloride 20 mEq tablet extended release 20 meq PO BID@10,21 Qty: 180 3RF nitroglycerin [Nitrostat] 0.4 mg Tablet, Sublingual 0.4 mg sublingual Q5M PRN (Reason: Chest Pain) Qty: 25 0RF cyanocobalamin (vitamin B-12) 1,000 mcg tablet 2,500 mcg PO DAILY@1000 atorvastatin 40 mg tablet 40 mg PO DAILY donepezil 5 mg tablet 5 mg PO DAILY hydrocodone-acetaminophen 10-325 mg tablet 1 tab PO 5XD PRN (Reason: pain) Qty: 10 0RF Changed warfarin 3 mg tablet See Rx Instructions .ROUTE .COMPLEX Qty: 30 3RF Protocol: Dose Management Condition: Friday Dose/Route: 3 mg Instruction: 1 x 3 mg tablet Condition: Friday Dose/Route: 3 mg Instruction: 1 x 3 mg tablet Condition: Friday Dose/Route: 3 mg Instruction: 1 x 3 mg tablet Condition: Friday Dose/Route: 3 mg Instruction: 1 x 3 mg tablet Condition: Dose/Route: 2 mg Instruction: 1 x 2 mg tablet Condition: Friday Dose/Route: 0 mg Instruction: 0 tablets Condition: Friday Dose/Route: 3 mg Instruction: 1 x 3 mg tablet Protocol Text: Adjustment Start Date: Friday03/21/23 INR Value: 4.0 INR Date: 03/21/23 Recheck Date: 03/28/23 Rx Instructions: For now continue alternating 4mg and 3mg daily until INR 2.5-3.5, then resume prior doses of alternating between 3mg and 2mg. warfarin 2 mg tablet See Rx Instructions .ROUTE .COMPLEX Qty: 30 3RF Protocol: Dose Management Condition: Friday Dose/Route: 3 mg Instruction: 1 x 3 mg tablet Condition: Friday Dose/Route: 3 mg Instruction: 1 x 3 mg tablet Condition: Friday Dose/Route: 3 mg Instruction: 1 x 3 mg tablet Condition: Friday Dose/Route: 3 mg Instruction: 1 x 3 mg tablet Condition: Dose/Route: 2 mg Instruction: 1 x 2 mg tablet Condition: Friday Dose/Route: 0 mg Instruction: 0 tablets Condition: Friday Dose/Route: 3 mg Instruction: 1 x 3 mg tablet Protocol Text: Adjustment Start Date: Friday03/21/23 INR Value: 4.0 INR Date: 03/21/23 Recheck Date: 03/28/23 Rx Instructions: For now continue alternating 4mg and 3mg daily until INR 2.5-3.5, then resume prior doses of alternating between 3mg and 2mg. warfarin 1 mg tablet See Rx Instructions .ROUTE .COMPLEX Qty: 30 3RF Protocol: Dose Management Condition: Friday Dose/Route: 3 mg Instruction: 1 x 3 mg tablet Condition: Friday Dose/Route: 3 mg Instruction: 1 x 3 mg tablet Condition: Friday Dose/Route: 3 mg Instruction: 1 x 3 mg tablet Condition: Friday Dose/Route: 3 mg Instruction: 1 x 3 mg tablet Condition: Dose/Route: 2 mg Instruction: 1 x 2 mg tablet Condition: Friday Dose/Route: 0 mg Instruction: 0 tablets Condition: Friday Dose/Route: 3 mg Instruction: 1 x 3 mg tablet Protocol Text: Adjustment Start Date: Friday03/21/23 INR Value: 4.0 INR Date: 03/21/23 Recheck Date: 03/28/23 Rx Instructions: For now continue alternating 4mg and 3mg daily until INR 2.5-3.5, then resume prior doses of alternating between 3mg and 2mg. Discharge Orders: Discharge Order (Routine); Ordered 04/04/23 Ordered By: Enrique Machuca Referrals: SNF, PCP [Other] - 4-7 days [facility] [Outside] Leisa Arzola MD [Physician] - 04/17/23 1:30 pm Discharge Diet: Cardiac and Soft Mechanical Discharge Activity: As per PT/OT instructions Patient Instructions: Opioid Safety Activity Restrictions/Additional Instructions: For now instead of alternating warfarin between 3 and 2 mg, for now continue alternating between 4 and 3 mg daily to bring up INR into therapeutic range of 2.5-3.5. Recheck INR daily for the next 4 days, then switch to twice weekly. Continue to work with formal physical therapy at the skilled facility. Ambulate with walker for stability. Continue abduction wedge and posterior lateral hip precautions as instructed. Maintain clean and dry postoperative dressing. Do not remove until routine postoperative visit in my office. Discharge Attestations Time Spent in Discharge Care*: greater than 30 min Quality Metrics Clinical Quality Measures [ No reported AMI, CVA or VTE this stay] Coding Level of Care Code 72782 Total time (in minutes) for Discharge: 40 Diagnoses Aortic valve replaced Z95.2 Closed subcapital fracture of left femur, initial encounter S72.012A Encounter type: initial encounter Fracture type: closed Chronic anticoagulation Z79.01 Chronic atrial fibrillation I48.20 Pacemaker Z95.0 History of common carotid artery stent placement Z98.890; Z95.828 Essential hypertension I10 Fall as cause of accidental injury at home as place of occurrence W19.XXXA; Y92.009 History of left hip hemiarthroplasty Z96.642
[2023-04-04 13:10] LABS: SARS Covid-2 Antigen Negative (Negative)
--- NOTE | 2023-04-04 14:25 | P.PN_ITS ---
Subjective 2 Subjective: Patient up and resting in chair at bedside. Post-operative pain controlled with oral medications only. Patient is doing well orthopedically. Discharging to SNF today. Medications: Reviewed: Yes Vitals/I&O/Wt Last Vital Signs Temp 97.5 F L 04/04/23 11:49 Pulse 80 04/04/23 11:49 Resp 20 H 04/04/23 11:49 BP 112/67 04/04/23 11:49 Pulse Ox 99 04/04/23 11:49 O2 Del Method Room Air 04/04/23 11:49 O2 Flow Rate 2 03/31/23 20:00 04/03/23 04/04/23 04/04/23 22:59 06:59 14:59 Intake Total 767.3 / 1469.0 133.317 / 1602.317 840 / 840 Balance 767.3 / 1469.0 133.317 / 1602.317 840 / 840 Weight last 48 hrs Weight 167 lb 9 oz Physical Exam 2 Const: COMMON NORMALS: no acute distress, average body habitus, patient oriented x3 and alert GENERAL APPEARANCE: cooperative and comfortable O RIENTATION/CONSCIOUSNESS: Yes awake HENMT: COMMON NORMALS: normocephalic and atraumatic HEAD & SCALP: n ormocephalic and atraumatic Chest: COMMONS NORMALS: normal inspection of the chest Resp: COMMON NORMALS: normal respiratory effort EFFORT & INSPECTION: Yes able to speak in complete sentences and Yes symmetric chest movement Extremity: LEFT LOWER EXTREMITY: Yes hip joint (No significant swelling or ecchymosis) Left hip: Yes inspection (Dressing is dry and intact), Yes ROM (resting with hip flexed to 90. ) and Yes neurovascular exam (No evidence of DVT) and Yes lower leg Left lower leg: Yes special tests Left lower leg special tests: Isaura's sign: Negative Neuro: COMMON NORMALS: patient oriented x3 SENSORIUM/ORIENTATION: Yes alert Psych: COMMON NORMALS: mental status grossly normal APPEARANCE: Yes grossly normal ATTITUDE: Yes calm and Yes engaged ATTENTION/CONCENTRATION: Yes attention grossly intact Skin: COMMON NORMALS: no rashes or lesions noted GENERAL SKIN EXAM: no rashes or lesions noted Urinary Catheter Management: Juarez: Cath Placed During This Visit: yes, but has since been removed by the nurse Reason for Continuing Indwelling Catheter: Decision to DC Catheter Urinary Catheter Date of Insertion: 03/29/23 Urinary Catheter Time of Insertion: 05:42 Date Urinary Catheter Removed: 03/31/23 Time Urinary Catheter Discontinued: 06:36 Data 04/04/23 04:10 03/31/23 02:37 A&P Assessment and plan (1) History of left hip hemiarthroplasty: Patient is doing well following left bipolar hip arthroplasty. She is working with physical therapy. At this time we will plan to continue hospital stay due to other medical co-morbidities while waiting on detention facility placement and therapeutic INR level. No sign or symptom of infection noted at hip. Dressing intact. Continue working with PT in the SNF. Discharging to SNF today as Medicine has cleared her. We will follow up in the office with patient in 2 weeks, as scheduled. (2) Fall as cause of accidental injury at home as place of occurrence: (3) Subcapital fracture of left hip: Qualifiers: Encounter type: initial encounter Fracture type: closed Qualified Code(s): S72.012A - Unspecified intracapsular fracture of left femur, initial encounter for closed fracture Attestations 2 Medical Necessity Statement*: Per medicine protocol. Expected discharge today. Coding Level of Care Code Acute Code for Chg Fwd Diagnoses History of left hip hemiarthroplasty Z96.642 Fall as cause of accidental injury at home as place of occurrence W19.XXXA; Y92.009 Closed subcapital fracture of left femur, initial encounter S72.012A Encounter type: initial encounter Fracture type: closed
== END 2023-04-04 14:51 | disposition skilled nursing facility (03) | DRG 522 ==
LOC: ER 05:48 → MEDSURG 06:01
PROVIDERS: Specialist; Student in an Organized Health Care Education/Training Program; Admitting Provider Internal Medicine; Emergency Provider Internal Medicine; PCP Family Medicine; Visit Provider Internal Medicine
PROC: 0SRS0JZ Replacement of Left Hip Joint, Femoral Surface with Synthetic Substitute, Open Approach (ICD-10-PCS; CPT 27125; principal; 2023-03-30 08:00)
DX: S72.012A Unspecified intracapsular fracture of left femur, initial encounter for closed fracture (principal); I48.20 Chronic atrial fibrillation, unspecified; W01.0XXA Fall on same level from slipping, tripping and stumbling without subsequent striking against object, initial encounter; M54.16 Radiculopathy, lumbar region; F32.A Depression, unspecified; E78.00 Pure hypercholesterolemia, unspecified; E03.9 Hypothyroidism, unspecified; I10 Essential (primary) hypertension; F17.210 Nicotine dependence, cigarettes, uncomplicated; E86.0 Dehydration; G89.29 Other chronic pain; F03.90 Unspecified dementia, unspecified severity, without behavioral disturbance, psychotic disturbance, mood disturbance, and anxiety; Z11.52 Encounter for screening for COVID-19; Z79.01 Long term (current) use of anticoagulants; Z79.02 Long term (current) use of antithrombotics/antiplatelets; Z95.820 Peripheral vascular angioplasty status with implants and grafts; Z95.0 Presence of cardiac pacemaker; Z95.2 Presence of prosthetic heart valve
CPT/HCPCS: 36415; 51702; 72170; 73502; 74176; 80048; 80053; 80061; 82607; 82746; 83036; 83540; 83550; 83735; 85014; 85018; 85025; 85610; 85730; 86900; 87426; 93306; 96374; 97110; 97116; 97161; 97167; 97530; 97535; 99285; C1776; J0131; J0330; J0690; J1100; J1170; J1644; J2405; J2704; J2710; J3010; J3370; J3430; J3490; J7030

== ENCOUNTER 2023-04-06 15:53 | Emergency (ER) | payer MEDICARE, MEDICAID, SELFPAY ==
[2023-04-06 15:54] VITALS: BP 150/82; PULSE 116; RESP 18; TEMP 36.5; O2SAT 96; BMI 25.0
[2023-04-06 15:59] VITALS: BP 150/82; PULSE 112; RESP 18; O2SAT 97
--- NOTE | 2023-04-06 16:08 | XRR_ITS ---
PROCEDURE INFORMATION: Exam: XR Left Hip Exam date and time: 04/06/2023 4:40 PM Age: 77 years old Clinical indication: Hip pain; Left hip; Additional info: Recent surg, pop during PT now painful TECHNIQUE: Imaging protocol: Radiologic exam of the left hip. Views: 2 or 3 views hip with pelvis when performed. COMPARISON: CR (PELVIS, ) 03/30/2023 10:37 AM FINDINGS: Bones/joints: Left hip prosthesis is seen with satisfactory or anatomic alignment and position. No indication of hardware failure. No acute fracture is seen around the prosthesis. Soft tissues: No significant focal soft tissue abnormality. Interval improvement in postsurgical soft tissue changes from previous exam. XR/XR hip LT 2-3V wo/w pel* [id number] IMPRESSION: Left hip prosthesis without acute findings.
--- NOTE | 2023-04-06 16:22 | W.ED.EXTPRO ---
HPI - Extremity Problem General: Chief complaint: Extremity Injury, Lower Stated complaint: HIP PAIN Time Seen by Provider: 04/06/23 15:55 History of Present Illness: Patient presents to the ER by EMS with complaints of left hip pain. Patient just got her left hip worked on for a fracture. Patient was in rehab doing physical therapy and felt a pop up until that point she was doing great pain was controlled after that point she has problems lifting her leg secondary to pain and pain is not controlled with her current regimen. Review of Systems General: Reports: 10 or more systems reviewed and unremarkable except in HPI and below PFSH ED PFSH: Medical History Fall as cause of accidental injury at home as place of occurrence Chronic anticoagulation Pacemaker Chronic atrial fibrillation Patient has history of intermittent atrial fibrillation. History of common carotid artery stent placement Clinically stable Arthritis, lumbar spine Chronic lumbar radiculopathy Spinal stenosis, lumbar region without neurogenic claudication Encounter for long-term opiate analgesic use Depression Hypercholesterolemia Hypothyroidism Hypertension Atrial fibrillation Surgical History History of left hip hemiarthroplasty Date of procedure: March 30, 2023. Surgeon: Dr. Leisa Arzola MD. Pre-op diagnosis: Left subcapital hip fracture, impacted and slightly angulated. Post-op diagnosis: Left subcapital hip fracture, impacted and slightly angulated Procedure done: Left bipolar hip arthroplasty Implants: The Maria Elena total hip system with a size 49 mm universal head bipolar component with 28 mm inner diameter and a [place] 28 mm outer diameter +4 mm offset V40 LFIT Femoral head, and a size 6 Accolade II 127? neck angle hip stem History of back surgery History of permanent cardiac pacemaker placement Aortic valve replaced 2000. Mechanical H/O section History of appendectomy History of carpal tunnel surgery of right wrist History of carpal tunnel surgery of left wrist H/O aortic valve replacement History of bilateral carotid endarterectomy Family History Mother Dementia Father CAD (coronary artery disease) Denies family history of Diabetes Clotting disorder Chronic kidney disease (CKD) Suicide Anesthesia complication Bleeding disorder Lung disease Cancer Stroke Social History Smoking and tobacco/nicotine status: current every day tobacco/nicotine user Second hand smoke exposure: No Alcohol intake: never Substance/Drug Use: never Lives independently: Yes Household members: significant other Physical Exam Const: COMMON NORMALS: no acute distress, average body habitus, patient oriented x3, no limitations, healthy appearing, alert and well nourished Neck/C-Spine: COMMON NORMALS: no JVD Chest: COMMONS NORMALS: normal inspection of the chest and normal palpation of entire chest wall Resp: COMMON NORMALS: normal respiratory effort, No retractions, No use of accessory muscles and clear to auscultation bilaterally AUSCULTATION: clear to auscultation bilaterally Cardio: COMMON NORMALS: no JVD, regular rate, regular rhythm, S1 normal heart sound present, S2 normal heart sound present, No gallops present (Cardio), No clicks present (Cardio), No murmurs present (Cardio) and No rub (Cardio) RATE: regular rate RHYTHM: regular rhythm HEART SOUNDS: S1 normal heart sound present and S2 normal heart sound present GI: COMMON NORMALS: Normal to inspection, nondistended, normoactive bowel sounds present, Soft to palpation, non-tender, No hepatosplenomegaly present and no masses PALPATION: Yes Soft to palpation and Yes No hepatosplenomegaly present Extremity: NARRATIVE EXTREMITY EXAM: Left hip area dressing clean dry and intact Neuro: COMMON NORMALS: patient oriented x3 SENSORIUM/ORIENTATION: Yes alert Course Vital Signs: Vital signs: Vital Signs Temperature 97.7 F 04/06/23 15:54 Pulse Rate 119 H 04/06/23 17:04 Respiratory Rate 18 04/06/23 17:04 Blood Pressure 143/75 04/06/23 17:04 Pulse Oximetry 98 04/06/23 17:04 Oxygen Delivery Me thod Room Air 04/06/23 17:04 MDM - Extremity (Nontraumatic) Medical Decision Making Patient had her left hip william-rayed. My preliminary exam is negative for any acute changes other than postsurgical changes. Patient was given 1 additional [place] which controlled her pain. Patient stated she is ready to go so patient will be discharged back to the detention. Differential Diagnosis Unlikely herpes zoster, gout, cellulitis, superficial thrombophlebitis, deep venous thrombosis of upper extremity, lower extremity edema or deep vein thrombosis of lower extremity Medical Records I reviewed the patient's medical records. Lab Data I reviewed the patient's lab results. All radiology interpretation(s) finalized by discharge Discharge Plan Discharge Patient Disposition: Home Clinical Impression: Acute pain of left hip Condition: Stable Prescriptions: No Action multivitamin Tablet 1 tab PO DAILY sennosides-docusate sodium 8.6-50 mg tablet 1 tab PO DAILY cyclobenzaprine 10 mg tablet 10 mg PO TID PRN (Reason: muscle spasm) 10 Days Qty: 30 3RF cholecalciferol (vitamin D3) 25 mcg (1,000 unit) capsule 25 mcg PO DAILY metoprolol tartrate 25 mg tablet 37.5 mg PO BID Qty: 270 3RF amlodipine 5 mg tablet 5 mg PO DAILY Qty: 90 2RF clopidogrel [Plavix] 75 mg tablet 75 mg PO DAILY Qty: 90 3RF levothyroxine 200 mcg tablet 200 mcg PO DAILY Qty: 90 3RF spironolactone 25 mg tablet 25 mg PO DAILY Qty: 90 3RF furosemide 40 mg tablet 40 mg PO BID Qty: 180 3RF potassium chloride 20 mEq tablet extended release 20 meq PO BID@10,21 Qty: 180 3RF nitroglycerin [Nitrostat] 0.4 mg Tablet, Sublingual 0.4 mg sublingual Q5M PRN (Reason: Chest Pain) Qty: 25 0RF cyanocobalamin (vitamin B-12) 1,000 mcg tablet 2,500 mcg PO DAILY@1000 atorvastatin 40 mg tablet 40 mg PO DAILY donepezil 5 mg tablet 5 mg PO DAILY warfarin 3 mg tablet See Rx Instructions .ROUTE .COMPLEX Qty: 30 3RF Protocol: Dose Management Condition: Friday Dose/Route: 3 mg Instruction: 1 x 3 mg tablet Condition: Friday Dose/Route: 3 mg Instruction: 1 x 3 mg tablet Condition: Friday Dose/Route: 3 mg Instruction: 1 x 3 mg tablet Condition: Friday Dose/Route: 3 mg Instruction: 1 x 3 mg tablet Condition: Dose/Route: 2 mg Instruction: 1 x 2 mg tablet Condition: Friday Dose/Route: 0 mg Instruction: 0 tablets Condition: Friday Dose/Route: 3 mg Instruction: 1 x 3 mg tablet Protocol Text: Adjustment Start Date: Friday03/21/23 INR Value: 4.0 INR Date: 03/21/23 Recheck Date: 03/28/23 Rx Instructions: For now continue alternating 4mg and 3mg daily until INR 2.5-3.5, then resume prior doses of alternating between 3mg and 2mg. warfarin 2 mg tablet See Rx Instructions .ROUTE .COMPLEX Qty: 30 3RF Protocol: Dose Management Condition: Friday Dose/Route: 3 mg Instruction: 1 x 3 mg tablet Condition: Friday Dose/Route: 3 mg Instruction: 1 x 3 mg tablet Condition: Friday Dose/Route: 3 mg Instruction: 1 x 3 mg tablet Condition: Friday Dose/Route: 3 mg Instruction: 1 x 3 mg tablet Condition: Dose/Route: 2 mg Instruction: 1 x 2 mg tablet Condition: Friday Dose/Route: 0 mg Instruction: 0 tablets Condition: Friday Dose/Route: 3 mg Instruction: 1 x 3 mg tablet Protocol Text: Adjustment Start Date: Friday03/21/23 INR Value: 4.0 INR Date: 03/21/23 Recheck Date: 03/28/23 Rx Instructions: For now continue alternating 4mg and 3mg daily until INR 2.5-3.5, then resume prior doses of alternating between 3mg and 2mg. warfarin 1 mg tablet See Rx Instructions .ROUTE .COMPLEX Qty: 30 3RF Protocol: Dose Management Condition: Friday Dose/Route: 3 mg Instruction: 1 x 3 mg tablet Condition: Friday Dose/Route: 3 mg Instruction: 1 x 3 mg tablet Condition: Friday Dose/Route: 3 mg Instruction: 1 x 3 mg tablet Condition: Friday Dose/Route: 3 mg Instruction: 1 x 3 mg tablet Condition: Dose/Route: 2 mg Instruction: 1 x 2 mg tablet Condition: Friday Dose/Route: 0 mg Instruction: 0 tablets Condition: Friday Dose/Route: 3 mg Instruction: 1 x 3 mg tablet Protocol Text: Adjustment Start Date: Friday03/21/23 INR Value: 4.0 INR Date: 03/21/23 Recheck Date: 03/28/23 Rx Instructions: For now continue alternating 4mg and 3mg daily until INR 2.5-3.5, then resume prior doses of alternating between 3mg and 2mg. hydrocodone-acetaminophen 10-325 mg tablet 1 tab PO 5XD PRN (Reason: pain) Qty: 10 0RF hydrocodone-acetaminophen 10-325 mg tablet 1 tab PO Q6H PRN (Reason: pain) 5 Days Qty: 20 0RF Discharge Orders: Discharge ED (Routine); Ordered 04/06/23 Ordered By: Santos Kumar Referrals: Ruy Palacio MD [Primary Care Provider] - 1 week Patient Instructions: Opioid Safety, Pain Management Activity Restrictions/Additional Instructions: Continue your current pain regimen. Continue going to physical therapy as planned. Please follow-up with your orthopedic surgeon and/or family practice physician within neck 7 to 10 days for further evaluation and treatment. If your pain becomes unbearable please return to the ER. Coding Level of Care Code ED Assistant Passenger Locomotive Engineer for Goivani Mendosa
[2023-04-06] MEDS: HYDROcodone-acetaminophen 5-325 mg Tablet 1 TAB PO (16:45)
[2023-04-06 17:04] VITALS: BP 143/75; PULSE 119; RESP 18; O2SAT 98
== END 2023-04-06 17:42 | disposition home or self-care (01) ==
PROVIDERS: Emergency Provider Emergency Medicine; PCP Family Medicine
DX: M25.552 Pain in left hip (principal); Z79.02 Long term (current) use of antithrombotics/antiplatelets; Z79.01 Long term (current) use of anticoagulants; Z72.0 Tobacco use; Z95.0 Presence of cardiac pacemaker; I10 Essential (primary) hypertension; Z96.642 Presence of left artificial hip joint
CPT/HCPCS: 73502; 99283

== ENCOUNTER 2023-05-03 06:03 | Inpatient (IN) | payer MEDICARE, MEDICAID, SELFPAY ==
[2023-05-03] VITALS (17 sets, daily range): BP systolic 97–147; BP diastolic 58–83; PULSE 74–110; RESP 16–22; TEMP 36.4–37; O2SAT 92–97; BMI 26.6
--- NOTE | 2023-05-03 06:05 | XRR_ITS ---
PROCEDURE INFORMATION: Exam: XR Left Hip Exam date and time: 05/03/2023 6:14 AM Age: 77 years old Clinical indication: Prior surgery; Surgery date: 1-6 months; Surgery type: Left vijay 03/30/2023; Patient HX: Sudden left hip pain when getting out of bed this morning. TECHNIQUE: Imaging protocol: Radiologic exam of the left hip. Views: 2 or 3 views hip with pelvis when performed. COMPARISON: CR (PELVIS, ) 04/06/2023 4:40 PM FINDINGS: Bones/joints: Left hip hemiarthroplasty with interval fracture through the lesser trochanteric fragment. No dislocation. Soft tissues: Unremarkable. XR/XR hip LT 2-3V wo/w pel* [id number] IMPRESSION: Fracture of the lesser trochanter.
--- NOTE | 2023-05-03 06:08 | ED_ITS ---
HPI - General Adult 2 General: Chief complaint: Extremity Injury, Upper Stated complaint: HIP PAIN Time Seen by Provider: 05/03/23 06:05 Source: patient Mode of arrival: EMS History of Present Illness: 77-year-old female presents emergency ro om complaining of severe left hip pain. Approximately 1 month ago she had a left subcapital hip fracture which she underwent arthroplasty for at this facility. This morning she was laying in her bed she woke up sat at the edge of the bed and was going to get up to go to the bathroom. She states she felt a sudden sudden popping sensation in her left hip and had severe pain and still has severe pain. She cannot really tell me if she bent over at the waist to pull on a sock or shoe she does not seem to recall. She has not had problems until hip arthroplasty prior to this. Onset (ago): minute(s) Location: lower extremity (L hip) Severity: moderate Quality: sharp Pain Consistency: constant Relieving factors: none Exacerbating factors: none Associated symptoms: Deny chest pain, confusion, cough, diaphoresis, decreased appetite, dyspnea, fevers/chills, headache(s), malaise, nausea, rash, palpitations, seizures, short of breath, syncope, vomiting or weakness Treatments prior to arrival: none Review of Systems 2 Const: Denies: fever(s), chills, malaise or diaphoresis Card: Denies: chest pain, palpitations or syncope Resp: Denies: dyspnea GI: Denies: abdominal pain, nausea or vomiting : Denies: dysuria, urinary frequency or urinary urgency Musc: Denies: neck pain or back pain Skin/Breast: Denies: rash Neuro: Denies: headache(s) or confusion PFSH ED 2 PFSH: Medical History Fall as cause of accidental injury at home as place of occurrence Chronic anticoagulation Pacemaker Chronic atrial fibrillation Patient has history of intermittent atrial fibrillation. History of common carotid artery stent placement Clinically stable Arthritis, lumbar spine Chronic lumbar radiculopathy Spinal stenosis, lumbar region without neurogenic claudication Encounter for long-term opiate analgesic use Depression Hypercholesterolemia Hypothyroidism Hypertension Atrial fibrillation Surgical History History of left hip hemiarthroplasty Date of procedure: March 30, 2023. Surgeon: Dr. Leisa Arzola MD. Pre-op diagnosis: Left subcapital hip fracture, impacted and slightly angulated. Post-op diagnosis: Left subcapital hip fracture, impacted and slightly angulated Procedure done: Left bipolar hip arthroplasty Implants: The [place] total hip system with a size 49 mm universal head bipolar component with 28 mm inner diameter and a [place] 28 mm outer diameter +4 mm offset V40 LFIT Femoral head, and a size 6 Accolade II 127? neck angle hip stem History of back surgery History of permanent cardiac pacemaker placement Aortic valve replaced 2000. Mechanical H/O section History of appendectomy History of carpal tunnel surgery of right wrist History of carpal tunnel surgery of left wrist H/O aortic valve replacement History of bilateral carotid endarterectomy Family History Mother Dementia Father CAD (coronary artery disease) Denies family history of Diabetes Clotting disorder Chronic kidney disease (CKD) Suicide Anesthesia complication Bleeding disorder Lung disease Cancer Stroke Social History Smoking and tobacco/nicotine status: current every day tobacco/nicotine user Second hand smoke exposure: No Alcohol intake: never Substance/Drug Use: never Lives independently: Yes Household members: significant other Physical Exam 2 Const: GENERAL APPEARANCE: cooperative and in distress (Severe left hip pain) ORIENTATION/CONSCIOUSNESS: Yes awake, Yes oriented to person, Yes oriented to place and Yes oriented to time HENMT: COMMON NORMALS: normocephalic, atraumatic and hearing grossly normal bilaterally HEAD & SCALP: normocephalic and atraumatic Resp: COMMON NORMALS: normal respiratory effort, No retractions, No use of accessory muscles and clear to auscultation bilaterally AUSCULTATION: clear to auscultation bilaterally Cardio: COMMON NORMALS: regular rate, regular rhythm and No murmurs present (Cardio) RATE: regular rate RHYTHM: regular rhythm GI: COMMON NORMALS: Soft to palpation and No hepatosplenomegaly present A USCULTATION: Yes normoactive bowel sounds PALPATION: Yes Soft to palpation, No Tenderness to palpation present (GI), No Guarding due to palpation present (GI) and Yes No hepatosplenomegaly present Extremity: COMMON NORMALS: normal to inspection, capillary refill normal, no clubbing, cyanosis or edema, no calf tenderness and no pedal edema Neuro: SENSORIUM/ORIENTATION: Yes oriented to person, Yes oriented to place and Yes oriented to time Skin: COMMON NORMALS: no rashes or lesions noted GENERAL SKIN EXAM: no rashes or lesions noted Course 2 Vital Signs: Vital signs: Vital Signs Temperature 97.8 F 05/03/23 06:08 Pulse Rate 98 05/03/23 06:30 Respiratory Rate 20 H 05/03/23 06:30 Blood Pressure 122/73 05/03/23 06:30 Pulse Oximetry 96 05/03/23 06:30 Oxygen Delivery Me thod Room Air 05/03/23 06:08 MDM - General Adult Medical Decision Making Plain film does not show dislocation of the arthroplasty but does show a lesser trochanter fracture. This was not present on x-ray 04/06/2023. Will CT hip to evaluate for further fracture or injury. Patient denies any falls. EMS related that the patient had told them that she did not do any twisting or bending either prior to beginning to experience the pain. CT reviewed I discussed with the [facility] radiologist as well. He feels that this is an unstable fracture that extends and fragments beyond an isolated lesser trochanter fracture. He feels that it is unstable around the arthroplasty and may need revision. Discussed with on-call orthopedist will admit to hospitalist. Medical Records I reviewed the patient's medical records. Lab Data I reviewed the patient's lab results. 05/03/23 07:05 05/03/23 07:05 Radiology Impressions Hip/Pelvis X-Ray 05/03/23 06:05 IMPRESSION: Fracture of the lesser trochanter. Hip CT 05/03/23 06:22 IMPRESSION: Fracture of the proximal femur. All radiology interpretation(s) finalized by discharge Discharge Plan Discharge Patient Disposition: Admitted As Inpatient Clinical Impression: Periprosthetic fracture around internal prosthetic left hip joint, initial encounter, Chronic anticoagulation, H/O mechanical aortic valve replacement, Atrial fibrillation Condition: Stable Prescriptions: No Action multivitamin Tablet 1 tab PO DAILY sennosides-docusate sodium 8.6-50 mg tablet 1 tab PO DAILY cyclobenzaprine 10 mg tablet 10 mg PO TID PRN (Reason: muscle spasm) 10 Days Qty: 30 3RF cholecalciferol (vitamin D3) 25 mcg (1,000 unit) capsule 25 mcg PO DAILY metoprolol tartrate 25 mg tablet 37.5 mg PO BID Qty: 270 3RF amlodipine 5 mg tablet 5 mg PO DAILY Qty: 90 2RF clopidogrel [Plavix] 75 mg tablet 75 mg PO DAILY Qty: 90 3RF levothyroxine 200 mcg tablet 200 mcg PO DAILY Qty: 90 3RF spironolactone 25 mg tablet 25 mg PO DAILY Qty: 90 3RF furosemide 40 mg tablet 40 mg PO BID Qty: 180 3RF potassium chloride 20 mEq tablet extended release 20 meq PO BID@10,21 Qty: 180 3RF nitroglycerin [Nitrostat] 0.4 mg Tablet, Sublingual 0.4 mg sublingual Q5M PRN (Reason: Chest Pain) Qty: 25 0RF cyanocobalamin (vitamin B-12) 1,000 mcg tablet 2,500 mcg PO DAILY@1000 atorvastatin 40 mg tablet 40 mg PO DAILY donepezil 5 mg tablet 5 mg PO DAILY warfarin 3 mg tablet See Rx Instructions .ROUTE .COMPLEX Qty: 30 3RF Protocol: Dose Management Condition: Friday Dose/Route: 2 mg Instruction: 1 x 2 mg tablet Condition: Friday Dose/Route: 2 mg Instruction: 1 x 2 mg tablet Condition: Friday Dose/Route: 0 mg Instruction: 0 tablets Condition: Friday Dose/Route: 0 mg Instruction: 0 tablets Condition: Dose/Route: 0 mg Instruction: 0 tablets Condition: Friday Dose/Route: 2 mg Instruction: 1 x 2 mg tablet Condition: Friday Dose/Route: 2 mg Instruction: 1 x 2 mg tablet Protocol Text: Adjustment Start Date: Friday04/30/23 INR Value: 6.5 INR Date: 04/30/23 Rx Instructions: For now continue alternating 4mg and 3mg daily until INR 2.5-3.5, then resume prior doses of alternating between 3mg and 2mg. warfarin 2 mg tablet See Rx Instructions .ROUTE .COMPLEX Qty: 30 3RF Protocol: Dose Management Condition: Friday Dose/Route: 2 mg Instruction: 1 x 2 mg tablet Condition: Friday Dose/Route: 2 mg Instruction: 1 x 2 mg tablet Condition: Friday Dose/Route: 0 mg Instruction: 0 tablets Condition: Friday Dose/Route: 0 mg Instruction: 0 tablets Condition: Dose/Route: 0 mg Instruction: 0 tablets Condition: Friday Dose/Route: 2 mg Instruction: 1 x 2 mg tablet Condition: Friday Dose/Route: 2 mg Instruction: 1 x 2 mg tablet Protocol Text: Adjustment Start Date: Friday04/30/23 INR Value: 6.5 INR Date: 04/30/23 Rx Instructions: For now continue alternating 4mg and 3mg daily until INR 2.5-3.5, then resume prior doses of alternating between 3mg and 2mg. warfarin 1 mg tablet See Rx Instructions .ROUTE .COMPLEX Qty: 30 3RF Protocol: Dose Management Condition: Friday Dose/Route: 2 mg Instruction: 1 x 2 mg tablet Condition: Friday Dose/Route: 2 mg Instruction: 1 x 2 mg tablet Condition: Friday Dose/Route: 0 mg Instruction: 0 tablets Condition: Friday Dose/Route: 0 mg Instruction: 0 tablets Condition: Dose/Route: 0 mg Instruction: 0 tablets Condition: Friday Dose/Route: 2 mg Instruction: 1 x 2 mg tablet Condition: Friday Dose/Route: 2 mg Instruction: 1 x 2 mg tablet Protocol Text: Adjustment Start Date: Friday04/30/23 INR Value: 6.5 INR Date: 04/30/23 Rx Instructions: For now continue alternating 4mg and 3mg daily until INR 2.5-3.5, then resume prior doses of alternating between 3mg and 2mg. hydrocodone-acetaminophen 10-325 mg tablet 1 tab PO 5XD PRN (Reason: pain) Qty: 10 0RF Referrals: Ruy Palacio MD [Primary Care Provider] - Coding Level of Care Code ED Boiler/Chiller Operator for Giovani Mendosa
--- NOTE | 2023-05-03 06:22 | CTR_ITS ---
PROCEDURE INFORMATION: Exam: CT Left Lower Extremity Without Contrast, Hip Exam date and time: 05/03/2023 6:35 AM Age: 77 years old Clinical indication: Prior surgery; Surgery date: 1-6 months; Surgery type: Left vijay 03/30/2023; Patient HX: Sudden left hip pain when getting out of bed this morning. ; Additional info: Hip arhtroplaty pain, lesser trochanter FX TECHNIQUE: Imaging protocol: CT of the left lower extremity without contrast was performed. Exam focused on the hip. Radiation optimization: All CT scans at this facility use at least one of these dose optimization techniques: automated exposure control; mA and/or kV adjustment per patient size (includes targeted exams where dose is matched to clinical indication); or iterative reconstruction. COMPARISON: CR (PELVIS, ) 05/03/2023 6:14 AM RADIATION DOSE METRICS: Total DLP (mGy-cm): 570.38 FINDINGS: Tubes, catheters and devices: The hardware appears intact. No dislocation of the hip joint. Bones/joints: Comminuted fracture through the proximal femur with mild rotation. This extends to the lesser trochanter. Mild displacement at the fracture site. Soft tissues: Normal. CT/CT hip LT wo con* [id number] IMPRESSION: Fracture of the proximal femur.
[2023-05-03] MEDS: ondansetron 2 mg/ML SDV 2 mL 4 MG IVP (06:26)
[2023-05-03] MEDS: fentaNYL 50 mcg/mL INJ 2mL IVP (06:27)
[2023-05-03 07:21] LABS: Basophils % 0.2 %; Eosinophils % 0.2 %; Hematocrit 37.2 % (36-47); Lymphocytes # 1.2 10^3/uL (0.8-4.8); Lymphocytes % 9.2 %; Mean Corpuscular HGB Conc 33.6 g/dL (30-55); Mean Corpuscular Hemoglobin 31.8 pg (27-33); Mean Corpuscular Volume 94.7 fl (85-98); Mean Platelet Volume 8.8 fL (7.4-10.4); Monocytes # 0.9 10^3/uL (0.2-0.9); Monocytes % 7.1 %; Neutrophils # 10.36 10^3/uL (1.8-7.7); Nucleated Red Blood Cells % 0 %; Platelet Count 299 10^3/cmm (157-399); Red Blood Count 3.93 10^6/uL (3.85-5.65); Red Cell Distribution Width 15.1 % (12.1-15.1); White Blood Count 12.49 10^3/uL (3.29-11.43)
--- NOTE | 2023-05-03 07:21 | XRR_ITS ---
PROCEDURE INFORMATION: Exam: XR Chest Exam date and time: 05/03/2023 7:37 AM Age: 77 years old Clinical indication: Cough and dyspnea; Prior surgery; Surgery date: 6+ months; Surgery type: Heart; Additional info: Dyspnea/cough TECHNIQUE: Imaging protocol: Radiologic exam of the chest. Views: 1 view. COMPARISON: CR XR chest 1V portable [id number] 12/31/2021 7:33 PM FINDINGS: Tubes, catheters and devices: Two lead pacemaker/defibrillator. Lungs: Vascular engorgement with mild interstitial edema. Pleural spaces: Unremarkable. No pleural effusion. No pneumothorax. Heart/Mediastinum: See Vasculature finding. Vasculature: Cardiomegaly with uncoiling of the thoracic aorta. Bones/joints: Status post median sternotomy with valve replacement. XR/XR chest 1V portable [id number] IMPRESSION: Mild CHF.
[2023-05-03] MEDS: morphine 4 mg/mL SDV 1 mL IVP ×2 (07:26→10:46)
[2023-05-03 07:39] LABS: INR 1.83 (0.8-1.2)
[2023-05-03 07:40] LABS: Partial Thromboplastin Time 32.4 SECONDS (23.9-36.7)
--- NOTE | 2023-05-03 07:44 | ECG_ITS ---
[facility] Test Date: 2023-05-03 Pat Name: Jennifer You Department: Room: Gender: Female Veneer Department Manager: : 1945 Requested By: Rajeev Garcia Order Number: [id number] Yarelis MD: Herminio Godfrey M.D. Measurements Intervals [place] Rate: 96 P: 0 GA: 0 QRS: 2 QRSD: 99 T: 56 QT: 350 QTc: 443 Interpretive Statements ATRIAL FIBRILLATION SEPTAL MYOCARDIAL INFARCTION , PROBABLY OLD [40+ ms Q WAVE IN V1/V2] Compared to ECG 08/05/2022 00:55:19 Incomplete right bundle-branch block no longer present T-wave abnormality no longer present Possible ischemia no longer present Myocardial infarct finding still present Electronically Signed On 05-03-2023 9:45:10 PECAN CLEANER by Herminio Godfrey M.D. [email or web address]
--- NOTE | 2023-05-03 07:48 | PC.PHAR ---
Addendum entered by Marii Llanos 05/03/23 08:43: pts daughter yash verified pts warfarin and beau who sets up her meds states the pts meds are the same as when she was discharged- Original Note: pt and pts states that beau hernandezs sets her meds up-called beau [phone] left message
[2023-05-03 07:55] LABS: Alanine Aminotransferase 15 U/L (0-33); Albumin Level 3.8 g/dL (3.5-5.2); Alkaline Phosphatase 159 U/L (35-105); Anion Gap 14.8 (5-19); Aspartate Amino Transferase 19 U/L (0-32); Blood Urea Nitrogen 18 mg/dL (8-23); Calcium 9.7 mg/dL (8.5-10.5); Carbon Dioxide 27 mmol/L (22-29); Chloride 98 mmol/L (98-107); Globulin 3.5 g/dL (1.3-4.6); Glucose 126 mg/dL (65-115); Osmolality Calculated 285 mOsm/kg (285-295); Potassium 3.8 mmol/L (3.5-5.1); Sodium 136 mmol/L (136-145); Total Bilirubin 0.7 mg/dL (0.15-1.2); Total Protein 7.3 g/dL (6.6-8.7)
[2023-05-03 08:29] LABS: Add Urine Culture? Yes; Add Urine Microscopic? YES; Bacteria Urine 4+ /hpf; Bilirubin Urine Neg (Negative); Blood Urine Neg (Negative); Glucose Urine UA Norm (Normal); Ketones Urine Negative (Negative); Leukocyte Esterase Urine 2+ (Negative); Nitrate Urine Positive (Negative); Protein Urine Neg (Negative); RBC Urine 0-4 /hpf (0-2); Squamous Epithelial Cell Urine 0-4 /hpf (0-5); Urine Appearance Hazy (CLEAR); Urine Color Yellow (Yellow); Urobilinogen Urine Neg (Negative); WBC Urine 55-80 /hpf (0-5); pH Urine 5 (5-7)
[2023-05-03] MEDS: cefTRIAXone 1,000 MG in sodium chloride 0.9% (plus) 50 ML 100 MG IV (09:23)
[2023-05-03] MEDS: HYDROmorphone 1 mg/mL INJ 1 mL 0.5 MG IVP (09:29)
--- NOTE | 2023-05-03 09:47 | P.HP_ITS ---
Providers/Chief Complaint 2 Admitting Physician: Lisa Tuttle MD Primary Care Provider: Ruy Palacio MD Chief Complaint: HIP PAIN History of Present Illness Jennifer You is a 77 year old female with past medical history of mechanical aortic valve, carotid artery stent, chronic atrial fibrillation, chronic anticoagulation with Coumadin, hypertension, hypothyroidism, spinal stenosis, depression, dementia presented to the hospital today complaining of severe left hip pain. About a month ago she had a left subcapital hip fracture for which she underwent arthroplasty at our facility. This morning she was laying in bed and when she woke up and sat on the edge of the bed she felt a sudden popping sensation in her left hip and started to have severe pain. She cannot remember past this at this time. confirms the story. Son and also at bedside. She says originally Dr. Arzola did the surgery. Aortic valve replacement was 23 years ago. Patient is currently on Plavix and Coumadin at home. No history of stroke no history of CAD. Some of the history was also obtained over the phone from patient's daughter who stated that lately patient was having trouble with dizziness. Every time she would stand from a sitting position she would feel dizzy. Recently her blood pressure medications were adjusted and decreased. At this time patient denies chest pain, shortness of breath. UA abnormal suggestive of UTI started on Rocephin in ER. Case was discussed with Dr. Balderas who will see patient in consultation today. Most likely plan for surgery for revision upcoming Friday. Medications/Allergies Home Medications Medication Instructions Recorded Confirmed Last Taken Type multivitamin 1 tab PO DAILY 02/08/21 05/03/23 03/28/23 History sennosides 8.6 mg-docusate sodium 1 tab PO DAILY 02/08/21 05/03/23 03/28/23 History 50 mg tablet cyclobenzaprine 10 mg tablet 10 mg PO TID PRN muscle spasm 01/02/22 05/03/23 Unknown Rx days #30 tabs cholecalciferol (vitamin D3) 25 25 mcg PO DAILY 06/20/22 05/03/23 03/28/23 History mcg (1,000 unit) capsule cyanocobalamin (vitamin B-12) 2,500 mcg PO DAILY@1000 06/20/22 05/03/23 03/28/23 History 1,000 mcg tablet metoprolol tartrate 25 mg tablet 37.5 mg (1.5 x 25 mg) PO BID #270 06/25/22 05/03/23 03/28/23 Rx tabs amlodipine 5 mg tablet 5 mg PO DAILY #90 tabs 09/23/22 05/03/23 03/28/23 Rx clopidogrel 75 mg tablet (Plavix) 75 mg PO DAILY #90 tabs 09/23/22 05/03/23 03/28/23 Rx levothyroxine 200 mcg tablet 200 mcg PO DAILY #90 tabs 09/23/22 05/03/23 03/28/23 Rx spironolactone 25 mg tablet 25 mg PO DAILY #90 tabs 09/24/22 05/03/23 03/28/23 Rx furosemide 40 mg tablet 40 mg PO BID #180 tabs 12/25/22 05/03/23 03/28/23 Rx potassium chloride 20 mEq 20 meq PO BID@10,21 #180 tabs 12/27/22 05/03/23 03/28/23 Rx tablet,extended release atorvastatin 40 mg tablet 40 mg PO DAILY 03/29/23 05/03/23 03/28/23 History donepezil 5 mg tablet 5 mg PO DAILY 03/29/23 05/03/23 03/28/23 History hydrocodone 10 mg-acetaminophen 1 tab PO 5XD PRN pain #10 tabs 04/04/23 05/03/23 Unknown Rx 325 mg tablet nitroglycerin 0.4 mg sublingual 0.4 mg sublingual Q5M PRN Chest 05/03/23 05/03/23 Unknown History tablet (Nitrostat) Pain warfarin 2 mg tablet See Rx Instructions .Route .COMPLEX 05/03/23 05/03/23 05/02/23 History Allergies Allergy/AdvReac Type Severity Reaction Status Date / Time No Known Allergies Allergy Verified 08/08/22 08:53 PFSH Acute 2 PFSH: Medical History Fall as cause of accidental injury at home as place of occurrence Chronic anticoagulation Pacemaker Chronic atrial fibrillation Patient has history of intermittent atrial fibrillation. History of common carotid artery stent placement Clinically stable Arthritis, lumbar spine Chronic lumbar radiculopathy Spinal stenosis, lumbar region without neurogenic claudication Encounter for long-term opiate analgesic use Depression Hypercholesterolemia Hypothyroidism Hypertension Atrial fibrillation Surgical History History of left hip hemiarthroplasty Date of procedure: March 30, 2023. Surgeon: Dr. Leisa Arzola MD. Pre-op diagnosis: Left subcapital hip fracture, impacted and slightly angulated. Post-op diagnosis: Left subcapital hip fracture, impacted and slightly angulated Procedure done: Left bipolar hip arthroplasty Implants: The [place] total hip system with a size 49 mm universal head bipolar component with 28 mm inner diameter and a Maria Elena 28 mm outer diameter +4 mm offset V40 LFIT Femoral head, and a size 6 Accolade II 127? neck angle hip stem History of back surgery History of permanent cardiac pacemaker placement Aortic valve replaced 2000. Mechanical H/O section History of appendectomy History of carpal tunnel surgery of right wrist History of carpal tunnel surgery of left wrist H/O aortic valve replacement History of bilateral carotid endarterectomy Family History Mother Dementia Father CAD (coronary artery disease) Denies family history of Diabetes Clotting disorder Chronic kidney disease (CKD) Suicide Anesthesia complication Bleeding disorder Lung disease Cancer Stroke Social History Smoking and tobacco/nicotine status: current every day tobacco/nicotine user Second hand smoke exposure: No Alcohol intake: never Substance/Drug Use: never Lives independently: Yes Household members: significant other Vitals/I&O/Wt Last Vital Signs Temp 97.8 F 05/03/23 06:08 Pulse 99 05/03/23 08:12 Resp 18 05/03/23 08:12 BP 110/71 05/03/23 08:12 Pulse Ox 97 05/03/23 08:12 O2 Del Method Room Air 05/03/23 08:12 Weight last 48 hrs Weight 72.575 kg Physical Exam 2 Narrative: No acute distress, sitting up in bed. Alert oriented x 3, able to provide most of the history, and son-in-law at bedside Lungs clear to auscultation bilaterally no wheezes no rhonchi Abdomen soft nontender, bowel sounds positive Left thigh slightly indurated with some tenderness to palpation, no edema bilateral lower extremities otherwise. Visible skin intact Normal S1-S2, no gross murmurs. Data 05/03/23 07:05 05/03/23 07:05 A&P Assessment and plan (1) High risk medication use: (2) Essential hypertension: (3) Mitral regurgitation: Qualifiers: Cardiac valve disease etiology: nonrheumatic Qualified Code(s): I34.0 - Nonrheumatic mitral (valve) insufficiency (4) Aortic valve replaced: (5) H/O mechanical aortic valve replacement: (6) Pacemaker: (7) Chronic atrial fibrillation: (8) History of common carotid artery stent placement: (9) Hypercholesterolemia: (10) Chronic anticoagulation: (11) Hypothyroidism: (12) Hip fracture, left: Plan #Periprosthetic proximal femur fracture #Moderate pulmonary hypertension #Carotid artery stenosis status post stent #Status post pacemaker #Prosthetic aortic valve #Chronic anticoagulation #Chronic atrial fibrillation #Chronic diastolic heart failure #Dementia #Hyperlipidemia #Hypertension #Hypothyroidism ? Hold Plavix at this time, hold Coumadin ? Will bridge with heparin drip and hold 12 hours prior to surgery which is most likely being planned for Friday at this time since implants need to be ordered that we do not currently have at's medical facility. Check a PTT every 6 hours. Patient is on high risk medication therefore will need frequent blood draws. Discussed with pharmacy. ? Consult Dr. Balderas. ? Continue atorvastatin, donepezil, home dose Lasix, levothyroxine, Toprol tartrate ? Check urine culture. Continue Rocephin daily ? Hold spironolactone at this time. Hold amlodipine. ? INR 1.83 today. Recheck INR daily ? Cardiac diet ? Morphine 2 mg every 4 hour as needed for pain ? Preop chest x-ray reviewed. Mild CHF. ? Place Juarez catheter. ? Add bowel regimen ? Check CBC, CMP, mag in a.m., PT/INR Full code DVT prophylaxis: Patient on heparin drip Attestations 2 Medical Necessity Statement*: Patient requires inpatient stay for repair of proximal femur fracture. Diagnoses High risk medication use Z79.899 Essential hypertension I10 Nonrheumatic mitral valve regurgitation I34.0 Cardiac valve disease etiology: nonrheumatic Aortic valve replaced Z95.2 H/O mechanical aortic valve replacement Z95.2 Pacemaker Z95.0 Chronic atrial fibrillation I48.20 History of common carotid artery stent placement Z98.890; Z95.828 Hypercholesterolemia E78.00 Chronic anticoagulation Z79.01 Hypothyroidism E03.9 Hip fracture, left S72.002A
[2023-05-03 10:37] LABS: NT Pro B Type Natriuretic Pept 2934 pg/mL (0-450); Procalcitonin 0.02 ng/mL (0-0.5)
[2023-05-03 10:38] LABS: Estmated Average Glucose 103; Hemoglobin A1C 5.2 % (4.0-6.0)
[2023-05-03] MEDS: sodium chloride 0.9% 1,000 ML 100 ML IV ×2 (10:47→22:38)
--- NOTE | 2023-05-03 10:49 | PM.CONSULT ---
Providers/Reason For Consult Consulting Physician/Specialty*: Hospitalist Reason for Consult*: Left hip unstable periprosthetic femur fracture Attending Physician: Lisa Tuttle MD Primary Care Provider: Ruy Palacio MD History of Present Illness History of Present Illness Jennifer You is a 77 year old female had a left hip hemiarthroplasty done on 03/30/2024. Patient subsequently sat up at the side of the bed and started having severe pain yesterday. This point x-rays were reviewed the lesser trochanter is broken off and stem seems to have impacted further compared to other x-rays. At this point she has an unstable periprosthetic hip fracture. Patient currently has an INR of 1.8. Patient will need a longstem prosthesis which is not at our facility. At this point we will let her INR normalized as well as over the implants for her surgery. I will also discussed the case with Dr. Ramsey on Friday if she wants to do the case since she had done the original surgery of she is unable to I will plan to do surgery on Friday. Review of Systems Const: Denies: fever(s), chills, malaise or diaphoresis Card: Denies: chest pain, palpitations or syncope Resp: Denies: dyspnea GI: Denies: abdominal pain, nausea or vomiting : Denies: dysuria, urinary frequency or urinary urgency Musc: Denies: neck pain or back pain Skin/Breast: Denies: rash Neuro: Denies: headache(s) or confusion Medications/Allergies Home Medications Medication Instructions Recorded Confirmed Last Taken Type multivitamin 1 tab PO DAILY 02/08/21 05/03/23 03/28/23 History sennosides 8.6 mg-docusate sodium 1 tab PO DAILY 02/08/21 05/03/23 03/28/23 History 50 mg tablet cyclobenzaprine 10 mg tablet 10 mg PO TID PRN muscle spasm 01/02/22 05/03/23 Unknown Rx days #30 tabs cholecalciferol (vitamin D3) 25 25 mcg PO DAILY 06/20/22 05/03/23 03/28/23 History mcg (1,000 unit) capsule cyanocobalamin (vitamin B-12) 2,500 mcg PO DAILY@1000 06/20/22 05/03/23 03/28/23 History 1,000 mcg tablet metoprolol tartrate 25 mg tablet 37.5 mg (1.5 x 25 mg) PO BID #270 06/25/22 05/03/23 03/28/23 Rx tabs amlodipine 5 mg tablet 5 mg PO DAILY #90 tabs 09/23/22 05/03/23 03/28/23 Rx clopidogrel 75 mg tablet (Plavix) 75 mg PO DAILY #90 tabs 09/23/22 05/03/23 03/28/23 Rx levothyroxine 200 mcg tablet 200 mcg PO DAILY #90 tabs 09/23/22 05/03/23 03/28/23 Rx spironolactone 25 mg tablet 25 mg PO DAILY #90 tabs 09/24/22 05/03/23 03/28/23 Rx furosemide 40 mg tablet 40 mg PO BID #180 tabs 12/25/22 05/03/23 03/28/23 Rx potassium chloride 20 mEq 20 meq PO BID@10,21 #180 tabs 12/27/22 05/03/23 03/28/23 Rx tablet,extended release atorvastatin 40 mg tablet 40 mg PO DAILY 03/29/23 05/03/23 03/28/23 History donepezil 5 mg tablet 5 mg PO DAILY 03/29/23 05/03/23 03/28/23 History hydrocodone 10 mg-acetaminophen 1 tab PO 5XD PRN pain #10 tabs 04/04/23 05/03/23 Unknown Rx 325 mg tablet nitroglycerin 0.4 mg sublingual 0.4 mg sublingual Q5M PRN Chest 05/03/23 05/03/23 Unknown History tablet (Nitrostat) Pain warfarin 2 mg tablet See Rx Instructions .Route .COMPLEX 05/03/23 05/03/23 05/02/23 History Allergies Allergy/AdvReac Type Severity Reaction Status Date / Time No Known Allergies Allergy Verified 08/08/22 08:53 PFSH Acute PFSH: Medical History Fall as cause of accidental injury at home as place of occurrence Chronic anticoagulation Pacemaker Chronic atrial fibrillation Patient has history of intermittent atrial fibrillation. History of common carotid artery stent placement Clinically stable Arthritis, lumbar spine Chronic lumbar radiculopathy Spinal stenosis, lumbar region without neurogenic claudication Encounter for long-term opiate analgesic use Depression Hypercholesterolemia Hypothyroidism Hypertension Atrial fibrillation Surgical History History of left hip hemiarthroplasty Date of procedure: March 30, 2023. Surgeon: Dr. Leisa Arzola MD. Pre-op diagnosis: Left subcapital hip fracture, impacted and slightly angulated. Post-op diagnosis: Left subcapital hip fracture, impacted and slightly angulated Procedure done: Left bipolar hip arthroplasty Implants: The [place] total hip system with a size 49 mm universal head bipolar component with 28 mm inner diameter and a Maria Elena 28 mm outer diameter +4 mm offset V40 LFIT Femoral head, and a size 6 Accolade II 127? neck angle hip stem History of back surgery History of permanent cardiac pacemaker placement Aortic valve replaced 2000. Mechanical H/O section History of appendectomy History of carpal tunnel surgery of right wrist History of carpal tunnel surgery of left wrist H/O aortic valve replacement History of bilateral carotid endarterectomy Family History Mother Dementia Father CAD (coronary artery disease) Denies family history of Diabetes Clotting disorder Chronic kidney disease (CKD) Suicide Anesthesia complication Bleeding disorder Lung disease Cancer Stroke Social History Smoking and tobacco/nicotine status: current every day tobacco/nicotine user Second hand smoke exposure: No Alcohol intake: never Substance/Drug Use: never Lives independently: Yes Household members: significant other Vitals/I&O/Wt Last Vital Signs Temp 97.6 F 05/03/23 10:08 Pulse 97 05/03/23 10:08 Resp 18 05/03/23 10:08 BP 122/78 05/03/23 10:08 Pulse Ox 92 05/03/23 10:45 O2 Del Method Room Air 05/03/23 10:45 Weight last 48 hrs Weight 160 lb Physical Exam Narrative: Patient is lying in bed in severe pain cannot get comfortable. Patient is in distress. Data 05/03/23 07:05 05/03/23 07:05 A&P Assessment and plan (1) Closed fracture of left hip: At this point we will let the INR get below 1.1 and plan to do surgery on Friday implants need to be ordered in we do not have the medical facility. Qualifiers: Encounter type: initial encounter Qualified Code(s): S72.002A - Fracture of unspecified part of neck of left femur, initial encounter for closed fracture Consult Attestations Medical Necessity Statement: Femur fracture Coding Level of Care Code Acute Code for [facility] Fwd Diagnoses Closed fracture of left hip S72.002A Encounter type: initial encounter
[2023-05-03] MEDS: cyanocobalamin 1,000 mcg Tablet 2500 MCG PO (10:50)
[2023-05-03] MEDS: morphine 4 mg/mL SDV 1 mL 2 MG IVP ×2 (16:24→20:34)
[2023-05-03] MEDS: heparin drip 25,000 UNIT/500 ML PREMIX 20 UNIT IV (16:25)
[2023-05-03] MEDS: metoprolol tartrate 25 mg Tablet 37.5 MG PO (17:17)
[2023-05-03] MEDS: acetaminophen 325 mg Tablet 650 MG PO (17:17)
[2023-05-03 23:07] LABS: Partial Thromboplastin Time 131.8 SECONDS (23.9-36.7)
[2023-05-03] MEDS: heparin drip 25,000 UNIT/500 ML PREMIX 16 UNIT IV (23:20)
[2023-05-04] VITALS (12 sets, daily range): BP systolic 105–128; BP diastolic 64–74; PULSE 69–90; RESP 14–18; TEMP 36.6–37; O2SAT 93–100
[2023-05-04] MEDS: morphine 4 mg/mL SDV 1 mL 2 MG IVP ×3 (04:09→16:32)
[2023-05-04 05:38] LABS: Basophils % 0.2 %; Eosinophils % 0.2 %; Hematocrit 33.3 % (36-47); Lymphocytes # 1.4 10^3/uL (0.8-4.8); Lymphocytes % 11.3 %; Mean Corpuscular HGB Conc 32.4 g/dL (30-55); Mean Corpuscular Hemoglobin 31.4 pg (27-33); Mean Corpuscular Volume 96.8 fl (85-98); Mean Platelet Volume 8.9 fL (7.4-10.4); Monocytes # 0.9 10^3/uL (0.2-0.9); Monocytes % 7.7 %; Neutrophils # 9.67 10^3/uL (1.8-7.7); Neutrophils % 80.2 %; Nucleated Red Blood Cells % 0 %; Platelet Count 279 10^3/cmm (157-399); Red Blood Count 3.44 10^6/uL (3.85-5.65); Red Cell Distribution Width 15.1 % (12.1-15.1); White Blood Count 12.07 10^3/uL (3.29-11.43)
[2023-05-04 05:58] LABS: INR 1.81 (0.8-1.2)
[2023-05-04 06:01] LABS: Alanine Aminotransferase 12 U/L (0-33); Albumin Level 3.2 g/dL (3.5-5.2); Alkaline Phosphatase 134 U/L (35-105); Anion Gap 13.9 (5-19); Aspartate Amino Transferase 17 U/L (0-32); Blood Urea Nitrogen 12 mg/dL (8-23); Calcium 8.8 mg/dL (8.5-10.5); Carbon Dioxide 25 mmol/L (22-29); Chloride 101 mmol/L (98-107); Globulin 3.1 g/dL (1.3-4.6); Glucose 97 mg/dL (65-115); Osmolality Calculated 282 mOsm/kg (285-295); Potassium 3.9 mmol/L (3.5-5.1); Sodium 136 mmol/L (136-145); Total Bilirubin 0.9 mg/dL (0.15-1.2); Total Protein 6.3 g/dL (6.6-8.7)
[2023-05-04 06:03] LABS: Partial Thromboplastin Time 99.3 SECONDS (23.9-36.7)
[2023-05-04] MEDS: heparin drip 25,000 UNIT/500 ML PREMIX 12 UNIT IV (06:18)
[2023-05-04] MEDS: sodium chloride 0.9% 1,000 ML 100 ML IV ×2 (08:02→18:02)
[2023-05-04] MEDS: cefTRIAXone 1,000 MG in sodium chloride 0.9% (plus) 50 ML 100 MG IV (08:03)
[2023-05-04] MEDS: levothyroxine 200 mcg Tablet PO (08:05)
[2023-05-04] MEDS: polyethylene glycol 3350 Pkt 17 gm PO (08:05)
[2023-05-04] MEDS: atorvastatin 40 mg Tablet PO (08:05)
[2023-05-04] MEDS: metoprolol tartrate 25 mg Tablet 37.5 MG PO ×2 (08:05→16:32)
[2023-05-04] MEDS: donepezil 5 MG Tablet PO (08:06)
[2023-05-04] MEDS: sennosides-docusate Tablet 1 TAB PO (08:06)
[2023-05-04] MEDS: cholecalciferol (vitamin D3) 1,000 unit Tablet 1000 UNIT PO (10:46)
[2023-05-04] MEDS: cyanocobalamin 1,000 mcg Tablet 2500 MCG PO (10:46)
--- NOTE | 2023-05-04 10:58 | P.PN_ITS ---
Subjective 2 Subjective: Patient is has better pain control today. This point plan on doing surgery tomorrow. Vitals/I&O/Wt Last Vital Signs Temp 97.9 F 05/04/23 07:49 Pulse 90 05/04/23 07:49 Resp 18 05/04/23 09:59 BP 117/67 05/04/23 07:49 Pulse Ox 95 05/04/23 07:49 O2 Del Method Room Air 05/04/23 07:49 05/03/23 05/04/23 05/04/23 22:59 06:59 14:59 Intake Total 1050 / 1100 248.467 / 9772.572 1254.2 / 1241.2 Output Total 350 / 350 700 / 1050 Balance 700 / 750 -451.533 / 709.018 2485.2 / 1241.2 Weight last 48 hrs Weight 160 lb Weight 160 lb Weight 160 lb Physical Exam 2 Narrative: Patient resting in bed comfortably Urinary Catheter Management: Juarez: Cath Placed During This Visit: yes Reason for Continuing Indwelling Catheter: Required Immobilization for Trauma or Surgery or Anesthesia Urinary Catheter Date of Insertion: 05/03/23 Urinary Catheter Time of Insertion: 10:56 Data 05/04/23 05:16 05/04/23 05:16 Micro: Microbiology 05/03/23 08:13 Urine Culture - Preliminary Urine,Clean Catch Gram Negative Rods A&P Assessment and plan (1) Closed fracture of left hip: Patient has a periprosthetic hip fracture at this point plan will be to do surgery tomorrow. Qualifiers: Encounter type: initial encounter Qualified Code(s): S72.002A - Fracture of unspecified part of neck of left femur, initial encounter for closed fracture Attestations 2 Medical Necessity Statement*: Pain control Coding Level of Care Code Acute Code for [facility] Fwd Diagnoses Closed fracture of left hip S72.002A Encounter type: initial encounter
[2023-05-04] MEDS: lactulose oral liq 20 gm/30 mL UDC PO (11:19)
[2023-05-04] MEDS: HYDROcodone-acetaminophen 10-325 mg Tablet 1 TAB PO ×3 (11:20→22:02)
--- NOTE | 2023-05-04 12:33 | P.PN_ITS ---
Subjective 2 Subjective: seen today no acute events overnight daughter at bedside feels constipated pain meds not enough Vitals/I&O/Wt Last Vital Signs Temp 97.9 F 05/04/23 07:49 Pulse 69 05/04/23 11:45 Resp 14 05/04/23 11:45 BP 123/64 05/04/23 11:45 Pulse Ox 93 05/04/23 11:45 O2 Del Method Room Air 05/04/23 11:45 05/03/23 05/04/23 05/04/23 22:59 06:59 14:59 Intake Total 1050 / 1100 248.467 / 1267.458 4390.2 / 1241.2 Output Total 350 / 350 700 / 1050 Balance 700 / 750 -451.533 / 933.560 9280.2 / 1241.2 Weight last 48 hrs Weight 72.575 kg Weight 72.575 kg Weight 72.575 kg Physical Exam 2 Narrative: No acute distress, laying in bed. Alert oriented x 3 Lungs clear to auscultation bilaterally no wheezes no rhonchi Abdomen soft nontender, bowel sounds positive Left thigh slightly indurated with some tenderness to palpation, no edema bilateral lower extremities otherwise. Visible skin intact Normal S1-S2, no gross murmurs. Urinary Catheter Management: Juarez: Cath Placed During This Visit: yes Reason for Continuing Indwelling Catheter: Required Immobilization for Trauma or Surgery or Anesthesia Urinary Catheter Date of Insertion: 05/03/23 Urinary Catheter Time of Insertion: 10:56 Data 05/04/23 05:16 05/04/23 05:16 Micro: Microbiology 05/03/23 08:13 Urine Culture - Preliminary Urine,Clean Catch Gram Negative Rods A&P Assessment and plan (1) High risk medication use: (2) Essential hypertension: (3) Mitral regurgitation: Qualifiers: Cardiac valve disease etiology: nonrheumatic Qualified Code(s): I34.0 - Nonrheumatic mitral (valve) insufficiency (4) Aortic valve replaced: (5) H/O mechanical aortic valve replacement: (6) Pacemaker: (7) Chronic atrial fibrillation: (8) History of common carotid artery stent placement: (9) Hypercholesterolemia: (10) Chronic anticoagulation: (11) Hypothyroidism: (12) Hip fracture, left: Plan #Periprosthetic proximal femur fracture #Moderate pulmonary hypertension #Carotid artery stenosis status post stent #Status post pacemaker #Prosthetic aortic valve #Chronic anticoagulation #Chronic atrial fibrillation #Chronic diastolic heart failure #Dementia #Hyperlipidemia #Hypertension #Hypothyroidism ? Hold Plavix at this time, hold Coumadin ? Will bridge with heparin drip and hold 12 hours prior to surgery which is being planned for Friday at this time since implants need to be ordered that we do not currently have at's medical facility. Check a PTT every 6 hours. Patient is on high risk medication therefore will need frequent blood draws. Discussed with pharmacy. ? Consult Dr. Balderas. ? Continue atorvastatin, donepezil, home dose Lasix, levothyroxine, Toprol tartrate ? Check urine culture. Continue Rocephin daily ? Hold spironolactone at this time. Hold amlodipine. ? INR 1.83 today. Recheck INR daily ? Cardiac diet ? Morphine 2 mg every 4 hour as needed for pain ? Preop chest x-ray reviewed. Mild CHF. ? Place Juarez catheter. ? Add bowel regimen ? Check CBC, CMP, mag in a.m., PT/INR - Oral hydro 10 q8 hours, morphine 2 mg iv prn for breakthrough pain - doc senna, miralax. lactulose on board discussed with RN and pt's daughter at bedside who is a nurse at our facility as well. Full code DVT prophylaxis: Patient on heparin drip Attestations 2 Medical Necessity Statement*: Patient requires inpatient stay for repair of proximal femur fracture. Diagnoses High risk medication use Z79.899 Essential hypertension I10 Nonrheumatic mitral valve regurgitation I34.0 Cardiac valve disease etiology: nonrheumatic Aortic valve replaced Z95.2 H/O mechanical aortic valve replacement Z95.2 Pacemaker Z95.0 Chronic atrial fibrillation I48.20 History of common carotid artery stent placement Z98.890; Z95.828 Hypercholesterolemia E78.00 Chronic anticoagulation Z79.01 Hypothyroidism E03.9 Hip fracture, left S72.002A
[2023-05-04 12:43] LABS: Partial Thromboplastin Time 84.9 SECONDS (23.9-36.7)
[2023-05-05] VITALS (26 sets, daily range): BP systolic 114–163; BP diastolic 70–110; PULSE 83–111; RESP 14–20; TEMP 36.3–37.1; O2SAT 92–100
[2023-05-05] MEDS: sodium chloride 0.9% 1,000 ML 100 ML IV (03:20)
[2023-05-05 04:48] LABS: Basophils % 0.2 %; Eosinophils # 0.1 10^3/uL (0.0-0.8); Eosinophils % 0.7 %; Hematocrit 35.1 % (36-47); Lymphocytes # 1.2 10^3/uL (0.8-4.8); Lymphocytes % 13.1 %; Mean Corpuscular HGB Conc 32.2 g/dL (30-55); Mean Corpuscular Hemoglobin 31.7 pg (27-33); Mean Corpuscular Volume 98.3 fl (85-98); Mean Platelet Volume 9.1 fL (7.4-10.4); Monocytes # 0.7 10^3/uL (0.2-0.9); Monocytes % 8.1 %; Neutrophils # 7.09 10^3/uL (1.8-7.7); Neutrophils % 77.5 %; Nucleated Red Blood Cells % 0 %; Platelet Count 269 10^3/cmm (157-399); Red Blood Count 3.57 10^6/uL (3.85-5.65); Red Cell Distribution Width 15.2 % (12.1-15.1); White Blood Count 9.15 10^3/uL (3.29-11.43)
[2023-05-05 05:05] LABS: INR 1.55 (0.8-1.2)
[2023-05-05 05:19] LABS: Anion Gap 13.2 (5-19); Blood Urea Nitrogen 11 mg/dL (8-23); Calcium 8.9 mg/dL (8.5-10.5); Carbon Dioxide 25 mmol/L (22-29); Chloride 106 mmol/L (98-107); Glucose 97 mg/dL (65-115); Osmolality Calculated 289 mOsm/kg (285-295); Potassium 4.2 mmol/L (3.5-5.1); Sodium 140 mmol/L (136-145)
[2023-05-05] MEDS: morphine 4 mg/mL SDV 1 mL 2 MG IVP ×2 (05:58→23:33)
[2023-05-05] MEDS: metoprolol tartrate 25 mg Tablet 37.5 MG PO ×2 (08:30→18:09)
[2023-05-05] MEDS: cefTRIAXone 1,000 MG in sodium chloride 0.9% (plus) 50 ML 100 MG IV (08:31)
[2023-05-05] MEDS: HYDROcodone-acetaminophen 10-325 mg Tablet 1 TAB PO (11:37)
[2023-05-05] MEDS: sodium chloride 0.9% 1,000 ML 50 ML IV (14:00)
--- NOTE | 2023-05-05 14:21 | W.PM.OPSUD ---
Surgery/Procedure H&P Update DATE OF PROCEDURE: May 05, 2023 DATE H&P PERFORMED: 05/03/23 H&P UPDATE INFORMATION: I have reviewed H&P completed within last 30 days, I have examined patient prior to procedure and No changes to prior documentation PREOP DIAGNOSIS: Periprosthetic hip fracture PLANNED PROCEDURE: Operation Date: 05/05/23 15:35 Proposed Procedures p Revision Hemiarthroplasty Hip(Left) - Edward Balderas DO
--- NOTE | 2023-05-05 14:34 | P.ANESASSM_ITS ---
Pre-Anesthetic Assessment Height/Weight: Height 1.65 m Weight 72.575 kg Temp Pulse Resp BP Pulse Ox O2 Del Method 98.2 F 106 H 18 152/95 95 Room Air 05/05/23 14:29 05/05/23 14:29 05/05/23 14:29 05/05/23 14:29 05/05/23 14:29 05/05/23 14:29 Preop Diagnosis: Periprosthetic hip fracture Operation Date: 05/05/23 15:35 Proposed Procedures p Revision Hemiarthroplasty Hip(Left) - Edward Balderas, Familial anesthetic complications: None Was Beta Patrick taken within 24 hours: Yes Was Clonidine taken within 24 hours: N/A Last intake: Intake Last Liquid Date 05/04/23 Last Liquid Time 17:00 Last Solid Date 05/04/23 Last Solid Time 17:00 Social No alcohol and No tobacco Exam alert, oriented x 3, clear to auscultation bilaterally and regular rate & rhythm Airway Mallampati: Class II Dentition: full CV/HEM Atrial Fibrillation, Congestive Heart Failure and Hypertension pacemaker, mitral regurge, mechanical aortic valve, ef 65% Metabolic Hyperlipidemia and Thyroid Disease Neuropsych carotid stent Anesthetic Plan ASA status: 3 Anesthesia: General Risk of > 500 ml blood loss (7ml/kg in children): Yes, adequate IV access and fluids planned Medications/Allergies Home Medications Medication Instructions Recorded Confirmed Last Taken Type multivitamin 1 tab PO DAILY 02/08/21 05/03/23 03/28/23 History sennosides 8.6 mg-docusate sodium 1 tab PO DAILY 02/08/21 05/03/23 03/28/23 History 50 mg tablet cyclobenzaprine 10 mg tablet 10 mg PO TID PRN muscle spasm 01/02/22 05/03/23 Unknown Rx days #30 tabs cholecalciferol (vitamin D3) 25 25 mcg PO DAILY 06/20/22 05/03/23 03/28/23 History mcg (1,000 unit) capsule cyanocobalamin (vitamin B-12) 2,500 mcg PO DAILY@1000 06/20/22 05/03/23 03/28/23 History 1,000 mcg tablet metoprolol tartrate 25 mg tablet 37.5 mg (1.5 x 25 mg) PO BID #270 06/25/22 05/03/23 03/28/23 Rx tabs amlodipine 5 mg tablet 5 mg PO DAILY #90 tabs 09/23/22 05/03/23 03/28/23 Rx clopidogrel 75 mg tablet (Plavix) 75 mg PO DAILY #90 tabs 09/23/22 05/03/23 03/28/23 Rx levothyroxine 200 mcg tablet 200 mcg PO DAILY #90 tabs 09/23/22 05/03/23 03/28/23 Rx spironolactone 25 mg tablet 25 mg PO DAILY #90 tabs 09/24/22 05/03/23 03/28/23 Rx furosemide 40 mg tablet 40 mg PO BID #180 tabs 12/25/22 05/03/23 03/28/23 Rx potassium chloride 20 mEq 20 meq PO BID@10,21 #180 tabs 12/27/22 05/03/23 03/28/23 Rx tablet,extended release atorvastatin 40 mg tablet 40 mg PO DAILY 03/29/23 05/03/23 03/28/23 History donepezil 5 mg tablet 5 mg PO DAILY 03/29/23 05/03/23 03/28/23 History hydrocodone 10 mg-acetaminophen 1 tab PO 5XD PRN pain #10 tabs 04/04/23 05/03/23 Unknown Rx 325 mg tablet nitroglycerin 0.4 mg sublingual 0.4 mg sublingual Q5M PRN Chest 05/03/23 05/03/23 Unknown History tablet (Nitrostat) Pain warfarin 2 mg tablet See Rx Instructions .Route .COMPLEX 05/03/23 05/03/23 05/02/23 History Allergies Allergy/AdvReac Type Severity Reaction Status Date / Time No Known Allergies Allergy Verified 08/08/22 08:53 Current Medications Generic Name Dose Route Start Last Admin Trade Name Freq PRN Reason Stop Dose Admin Acetaminophen 650 mg 05/03/23 09:37 05/03/23 17:17 Acetaminophen 325 Mg Tablet PO 650 mg Q6H PRN Administration Mild/Mod Pain Or Temp >/= 101 Hydrocodone Bitart/Acetaminophen 1 tab 05/04/23 11:06 05/05/23 11:37 Hydrocodone-Acetaminophen 10-325 Mg Tablet PO 1 tab 5XD PRN Administration MODERATE PAIN Atorvastatin Calcium 40 mg 05/04/23 09:00 05/05/23 08:07 Atorvastatin 40 Mg Tablet PO Not Given DAILY ROSE Cyanocobalamin 2,500 mcg 05/03/23 10:00 05/05/23 09:35 Cyanocobalamin 1,000 Mcg Tablet PO Not Given DAILY@1000 ROSE Donepezil HCl 5 mg 05/04/23 09:00 05/05/23 08:08 Donepezil 5 Mg Tablet PO Not Given DAILY ROSE Sodium Chloride 1,000 mls @ 100 mls/hr 05/03/23 09:57 05/05/23 14:00 Sodium Chloride 0.9% IV 50 mls/hr .Q10H ROSE Administration Ceftriaxone Sodium 1,000 mg/ 50 mls @ 100 mls/hr 05/04/23 09:30 05/05/23 09:05 Sodium Chloride IV Infused Q24H ROSE Infusion Protocol Heparin Sodium/Sodium Chloride 25,000 unit in 500 mls @ 0 mls/hr 05/03/23 13:45 05/05/23 00:00 Heparin Drip IV 0 unit/kg/hr .Q0M ROSE 0 mls/hr Titration Protocol Per Protocol Levothyroxine Sodium 200 mcg 05/04/23 09:00 05/05/23 08:08 Levothyroxine 200 Mcg Tablet PO Not Given DAILY ROSE Metoprolol Tartrate 37.5 mg 05/03/23 18:00 05/05/23 08:30 Metoprolol Tartrate 25 Mg Tablet PO 37.5 mg BID ROSE Administration Morphine Sulfate 2 mg 05/04/23 11:04 05/05/23 05:58 Morphine 4 Mg/Ml Sdv 1 Ml IVP 2 mg Q6H PRN Administration SEVERE PAIN Polyethylene Glycol 17 gm 05/04/23 09:00 05/05/23 08:08 Polyethylene Glycol 3350 Pkt 17 Gm PO Not Given DAILY ROSE Senna/Docusate Sodium 1 tab 05/04/23 09:00 05/05/23 08:08 Sennosides-Docusate Tablet PO Not Given DAILY [facility] Vitamin D 1,000 unit 05/04/23 10:45 05/05/23 08:07 Cholecalciferol (Vitamin D3) 1,000 Unit Tablet PO Not Given DAILY ROSE PFSH Anesthesia Medical History Fall as cause of accidental injury at home as place of occurrence Chronic anticoagulation Pacemaker Chronic atrial fibrillation Patient has history of intermittent atrial fibrillation. History of common carotid artery stent placement Clinically stable Arthritis, lumbar spine Chronic lumbar radiculopathy Spinal stenosis, lumbar region without neurogenic claudication Encounter for long-term opiate analgesic use Depression Hypercholesterolemia Hypothyroidism Hypertension Atrial fibrillation Surgical History History of left hip hemiarthroplasty Date of procedure: March 30, 2023. Surgeon: Dr. Leisa Arzola MD. Pre-op diagnosis: Left subcapital hip fracture, impacted and slightly angulated. Post-op diagnosis: Left subcapital hip fracture, impacted and slightly angulated Procedure done: Left bipolar hip arthroplasty Implants: The [employer] total hip system with a size 49 mm universal head bipolar component with 28 mm inner diameter and a [place] 28 mm outer diameter +4 mm offset V40 LFIT Femoral head, and a size 6 Accolade II 127? neck angle hip stem History of back surgery History of permanent cardiac pacemaker placement Aortic valve replaced 2000. Mechanical H/O section History of appendectomy History of carpal tunnel surgery of right wrist History of carpal tunnel surgery of left wrist H/O aortic valve replacement History of bilateral carotid endarterectomy Family History Mother Dementia Father CAD (coronary artery disease) Denies family history of Diabetes Clotting disorder Chronic kidney disease (CKD) Suicide Anesthesia complication Bleeding disorder Lung disease Cancer Stroke Social History Smoking and tobacco/nicotine status: current every day tobacco/nicotine user Second hand smoke exposure: No Alcohol intake: never Substance/Drug Use: never Lives independently: Yes Household members: significant other Data Anesthesia 05/05/23 04:12 05/05/23 04:12 Short CBC 05/04/23 05/05/23 Range/Units 05:16 04:12 WBC 12.07 H 9.15 (3.29-11.43) 10^3/uL Hgb 10.80 L 11.30 (11.27-16.99) g/dL Hct 33.3 L 35.1 L (36-47) % MCV 96.8 98.3 H (85-98) fl Plt Count 279 269 (157-399) 10^3/cmm Neut % (Auto) 80.2 77.5 % Neut # (Auto) 9.67 H 7.09 (1.8-7.7) 10^3/uL BMP 05/04/23 05/05/23 05:16 04:12 Sodium 136 140 Potassium 3.9 4.2 Chloride 101 106 Carbon Dioxide 25 25 BUN 12 11 Creatinine 0.7 0.7 Glucose 97 97 Calcium 8.8 8.9 Liver Function 05/04/23 Range/Units 05:16 Total Bilirubin 0.9 (0.15-1.2) mg/dL AST 17 (0-32) U/L ALT 12 (0-33) U/L Alkaline Phosphatase 134 H (35-105) U/L Albumin 3.2 L (3.5-5.2) g/dL Coags 05/03/23 05/04/23 05/04/23 22:20 05:16 12:11 PT 21.60 H INR 1.81 H APTT 131.8 H D 99.3 H 84.9 H 05/04/23 05/05/23 19:32 04:12 PT 19.10 H INR 1.55 H APTT 77.0 H Microbiology 05/03/23 08:13 Urine Culture - Final Urine,Clean Catch Escherichia coli Cardiac Studies: 2 Echocardiogram 03/29/23 Echocardiogram Ultrasound 04/15/19 Sestamibi Stress Test (Cardiology) 04/16 Cardiac Event Monitor 03/21/20
[2023-05-05] MEDS: sodium chloride 0.9% 1,000 ML 30 ML IV (15:22)
[2023-05-05] MEDS: ceFAZolin 2,000 MG in sodium chloride 0.9% (plus) 50 ML 100 MG IV ×2 (16:04→23:21)
[2023-05-05] MEDS: vancomycin 1,000 MG SDV 1000 MG XX (16:31)
--- NOTE | 2023-05-05 16:51 | XRR_ITS ---
PROCEDURE INFORMATION: Exam: XR Left Hip Exam date and time: 05/05/2023 5:03 PM Age: 77 years old Clinical indication: Device placement; Other: Lt hip arthro; Additional info: Post op TECHNIQUE: Imaging protocol: Radiologic exam of the left hip. Views: 1 view hip with pelvis when performed. COMPARISON: CT hip LT wo con* [id number] 05/03/2023 6:35 AM FINDINGS: Bones/joints: A left hip prosthesis is noted and is well seated and well aligned. Soft tissues: Unremarkable. XR/XR hip LT 1V wo/w pel [id number] IMPRESSION: Intact left hip prosthesis
[2023-05-05] MEDS: fentaNYL 50 mcg/mL INJ 2mL IVP (17:13)
[2023-05-05] MEDS: labetalol 5 mg/mL SDV 20mL 10 MG IVP (17:22)
--- NOTE | 2023-05-05 17:30 | PM.OP ---
Operative Report Date of procedure: May 05, 2023 Pre-op diagnosis: Left periprosthetic hip fracture Post-op diagnosis: same Procedure done: Left revision hip hemiarthroplasty Surgeon: Edward Balderas DO Estimated blood loss (mL): 50 Procedure: Revision hip hemiarthroplasty on the left Patient brought the op suite after going anesthesia placed in the left side up lateral decubitus position. All his pressure well-padded. Patient prepped draped also fashion. Skin incision made using previous skin incision. IT band split. The abductors and capsule were taken down posteriorly the hip prosthesis was identified the distractor was placed inside of the distraction bolt and the hip hemiarthroplasty was removed. Once the hemiarthroplasty was removed attention was then brought to performing the revision hip hemiarthroplasty. This started with reaming the canal the canal was reamed to 20 a size 20 stem was inserted. This was the Maria Elena S-ROM resting modular prosthesis. Next at the proximal part of the femur was trialed the standard size with neutral neck length and 46 head this was tried to reduce appropriate acquisition. Next the hip was dislocated the final prosthesis was then placed and screwed into position of the top of the stem. And the head was reduced and patient was felt to be stable all positions. Wounds were irrigated the abductors were approximated closed possible. IT bands closed with Vicryl skin was closed with Vicryl and daryl. Sterile dressings applied patient transferred to PACU in stable condition.
[2023-05-05] MEDS: HYDROmorphone 1 mg/mL INJ 1 mL 0.5 MG IVP (17:38)
[2023-05-05] MEDS: ondansetron 2 mg/ML SDV 2 mL 4 MG IVP (18:16)
[2023-05-05] MEDS: heparin drip 25,000 UNIT/500 ML PREMIX 12 UNIT IV (19:38)
[2023-05-05 19:40] LABS: Partial Thromboplastin Time 28.4 SECONDS (23.9-36.7)
--- NOTE | 2023-05-05 22:36 | P.PN_ITS ---
Subjective 2 Subjective: Patient in OR today Vitals/I&O/Wt Last Vital Signs Temp 97.6 F 05/05/23 19:54 Pulse 111 H 05/05/23 19:54 Resp 18 05/05/23 19:54 BP 117/72 05/05/23 19:54 Pulse Ox 93 05/05/23 19:54 O2 Del Method Room Air 05/05/23 18:20 O2 Flow Rate 93 05/05/23 17:23 05/05/23 05/05/23 05/05/23 06:59 14:59 22:59 Intake Total 970.2 / 4111.400 1050 / 1050 687.167 / 1737.167 Output Total 750 / 1250 250 / 250 Balance 220.2 / 2861.400 1050 / 1050 437.167 / 1487.167 Weight last 48 hrs Weight 72.575 kg Weight 72.575 kg Physical Exam 2 Narrative: attempted to see patient multiple times today but she was in the oprating room Urinary Catheter Management: Juarez: Cath Placed During This Visit: yes Reason for Continuing Indwelling Catheter: Perioperative Use in Selected Surgeries Urinary Catheter Date of Insertion: 05/03/23 Urinary Catheter Time of Insertion: 10:56 Data 05/05/23 04:12 05/05/23 04:12 Micro: Microbiology 05/03/23 08:13 Urine Culture - Final Urine,Clean Catch Escherichia coli A&P Assessment and plan (1) High risk medication use: (2) Essential hypertension: (3) Mitral regurgitation: Qualifiers: Cardiac valve disease etiology: nonrheumatic Qualified Code(s): I34.0 - Nonrheumatic mitral (valve) insufficiency (4) Aortic valve replaced: (5) H/O mechanical aortic valve replacement: (6) Pacemaker: (7) Chronic atrial fibrillation: (8) History of common carotid artery stent placement: (9) Hypercholesterolemia: (10) Chronic anticoagulation: (11) Hypothyroidism: (12) Hip fracture, left: Plan #Periprosthetic proximal femur fracture #Moderate pulmonary hypertension #Carotid artery stenosis status post stent #Status post pacemaker #Prosthetic aortic valve #Chronic anticoagulation #Chronic atrial fibrillation #Chronic diastolic heart failure #Dementia #Hyperlipidemia #Hypertension #Hypothyroidism ? Hold Plavix at this time, hold Coumadin ? Will bridge with heparin drip and hold 12 hours prior to surgery which is being planned for Friday at this time since implants need to be ordered that we do not currently have at's medical facility. Check a PTT every 6 hours. Patient is on high risk medication therefore will need frequent blood draws. Discussed with pharmacy. ? Consult Dr. Balderas. ? Continue atorvastatin, donepezil, home dose Lasix, levothyroxine, Toprol tartrate ? Check urine culture. Continue Rocephin daily ? Hold spironolactone at this time. Hold amlodipine. ? INR 1.83 today. Recheck INR daily ? Cardiac diet ? Morphine 2 mg every 4 hour as needed for pain ? Preop chest x-ray reviewed. Mild CHF. ? Place Juarez catheter. ? Add bowel regimen ? Check CBC, CMP, mag in a.m., PT/INR - Oral hydro 10 q8 hours, morphine 2 mg iv prn for breakthrough pain - doc senna, miralax. lactulose on board discussed with RN and pt's daughter at bedside who is a nurse at our facility as well. Full code DVT prophylaxis: Patient on heparin drip Plan for today: Planned intervention in OR today for ORIF Attestations 2 Medical Necessity Statement*: planned OR intervention today Coding Level of Care Code Acute Code for Chg Fwd Diagnoses High risk medication use Z79.899 Essential hypertension I10 Nonrheumatic mitral valve regurgitation I34.0 Cardiac valve disease etiology: nonrheumatic Aortic valve replaced Z95.2 H/O mechanical aortic valve replacement Z95.2 Pacemaker Z95.0 Chronic atrial fibrillation I48.20 History of common carotid artery stent placement Z98.890; Z95.828 Hypercholesterolemia E78.00 Chronic anticoagulation Z79.01 Hypothyroidism E03.9 Hip fracture, left S72.002A
[2023-05-06] VITALS (8 sets, daily range): BP systolic 100–137; BP diastolic 54–77; PULSE 68–110; RESP 14–18; TEMP 36.4–36.9; O2SAT 92–98
[2023-05-06] MEDS: HYDROcodone-acetaminophen 10-325 mg Tablet 1 TAB PO ×3 (01:56→17:16)
[2023-05-06 02:17] LABS: Partial Thromboplastin Time 47.6 SECONDS (23.9-36.7)
[2023-05-06] MEDS: morphine 4 mg/mL SDV 1 mL 2 MG IVP ×2 (06:38→14:34)
--- NOTE | 2023-05-06 08:01 | PM.PN ---
Subjective Subjective: Patient pain control she is wanting to get out of the hospital. Vitals/I&O/Wt Last Vital Signs Temp 97.6 F 05/06/23 07:10 Pulse 106 H 05/06/23 07:10 Resp 16 05/06/23 07:10 BP 106/68 05/06/23 07:10 Pulse Ox 93 05/06/23 07:10 O2 Del Method Room Air 05/06/23 07:10 O2 Flow Rate 93 05/05/23 17:23 05/05/23 05/06/23 05/06/23 22:59 06:59 14:59 Intake Total 687.167 / 1737.167 256.2 / 1993.367 Output Total 250 / 250 550 / 800 Balance 437.167 / 1487.167 -293.8 / 1193.367 Weight last 48 hrs Weight 160 lb Weight 160 lb Physical Exam Narrative: Wound clean dry and intact Urinary Catheter Management: Juarez: Cath Placed During This Visit: yes Reason for Continuing Indwelling Catheter: Acute Urinary Retention or Obstruction Urinary Catheter Date of Insertion: 05/03/23 Urinary Catheter Time of Insertion: 10:56 Data 05/05/23 04:12 05/05/23 04:12 Micro: Microbiology 05/03/23 08:13 Urine Culture - Final Urine,Clean Catch Escherichia coli A&P Assessment and plan (1) Periprosthetic fracture around internal prosthetic left hip joint, initial encounter: Postop day #1 revision of hip hemiarthroplasty. Up with physical therapy Weight-bear as tolerated DC Jaurez Okay for anticoagulation Attestations Medical Necessity Statement*: Per primary service Coding Level of Care Code Acute Code for [facility] Fwleoncio Diagnoses Periprosthetic fracture around internal prosthetic left hip joint, initial encounter M97.02XA
[2023-05-06] MEDS: cefTRIAXone 1,000 MG in sodium chloride 0.9% (plus) 50 ML 100 MG IV (08:42)
[2023-05-06] MEDS: cholecalciferol (vitamin D3) 1,000 unit Tablet 1000 UNIT PO (08:45)
[2023-05-06] MEDS: atorvastatin 40 mg Tablet PO (08:46)
[2023-05-06] MEDS: levothyroxine 200 mcg Tablet PO (08:46)
[2023-05-06] MEDS: polyethylene glycol 3350 Pkt 17 gm PO (08:46)
[2023-05-06] MEDS: metoprolol tartrate 25 mg Tablet 37.5 MG PO ×2 (08:46→17:15)
[2023-05-06] MEDS: sennosides-docusate Tablet 1 TAB PO (08:46)
[2023-05-06] MEDS: donepezil 5 MG Tablet PO (08:48)
[2023-05-06 09:00] LABS: Partial Thromboplastin Time 52.2 SECONDS (23.9-36.7)
[2023-05-06] MEDS: ceFAZolin 2,000 MG in sodium chloride 0.9% (plus) 50 ML 100 MG IV (09:52)
[2023-05-06] MEDS: cyanocobalamin 1,000 mcg Tablet 2500 MCG PO (11:24)
--- NOTE | 2023-05-06 15:55 | P.PN_ITS ---
Subjective 2 Subjective: pain is well controlled post procedure, walking to bathroom with assistance today . Plan to resume Coumadin today . Medications: Reviewed: Yes Vitals/I&O/Wt Last Vital Signs Temp 97.5 F L 05/06/23 15:52 Pulse 83 05/06/23 15:52 Resp 15 05/06/23 15:52 BP 137/77 05/06/23 15:52 Pulse Ox 98 05/06/23 15:52 O2 Del Method Room Air 05/06/23 15:52 O2 Flow Rate 93 05/05/23 17:23 05/06/23 05/06/23 05/06/23 06:59 14:59 22:59 Intake Total 256.2 / 4825.973 5256.416 / 1455.416 Output Total 550 / 800 Balance -293.8 / 0206.095 2150.416 / 1455.416 Weight last 48 hrs Weight 72.575 kg Weight 72.575 kg Physical Exam 2 Narrative: General: No acute distress, AO x3 HEENT: PERRLA, pupils bilaterally equal and reactive, pallors not present Chest: Normal vesicular breath sounds, no added sounds, equal good air entry bilaterally CVS: S1-S2 regular, no murmurs, no tachycardia, no gallops, no rubs Abdomen: Soft, nontender, no organomegaly, bowel sounds present Neuro: No focal deficits, no facial deformity, AO x3, power 5/5 in all limbs Urinary Catheter Management: Juarez: Cath Placed During This Visit: yes, but has since been removed by the nurse Reason for Continuing Indwelling Catheter: Decision to DC Catheter Urinary Catheter Date of Insertion: 05/03/23 Urinary Catheter Time of Insertion: 10:56 Date Urinary Catheter Removed: 05/06/23 Time Urinary Catheter Discontinued: 09:30 Data 05/05/23 04:12 05/05/23 04:12 A&P Assessment and plan (1) High risk medication use: (2) Essential hypertension: (3) Mitral regurgitation: Qualifiers: Cardiac valve disease etiology: nonrheumatic Qualified Code(s): I34.0 - Nonrheumatic mitral (valve) insufficiency (4) Aortic valve replaced: (5) H/O mechanical aortic valve replacement: (6) Pacemaker: (7) Chronic atrial fibrillation: (8) History of common carotid artery stent placement: (9) Hypercholesterolemia: (10) Chronic anticoagulation: (11) Hypothyroidism: (12) Hip fracture, left: Plan #Periprosthetic proximal femur fracture #Moderate pulmonary hypertension #Carotid artery stenosis status post stent #Status post pacemaker #Prosthetic aortic valve #Chronic anticoagulation #Chronic atrial fibrillation #Chronic diastolic heart failure #Dementia #Hyperlipidemia #Hypertension #Hypothyroidism ? Hold Plavix at this time, hold Coumadin ? Will bridge with heparin drip and hold 12 hours prior to surgery which is being planned for Friday at this time since implants need to be ordered that we do not currently have at's medical facility. Check a PTT every 6 hours. Patient is on high risk medication therefore will need frequent blood draws. Discussed with pharmacy. ? Consult Dr. Balderas. ? Continue atorvastatin, donepezil, home dose Lasix, levothyroxine, Toprol tartrate ? Check urine culture. Continue Rocephin daily ? Hold spironolactone at this time. Hold amlodipine. ? INR 1.83 today. Recheck INR daily ? Cardiac diet ? Morphine 2 mg every 4 hour as needed for pain ? Preop chest x-ray reviewed. Mild CHF. ? Place Juarez catheter. ? Add bowel regimen ? Check CBC, CMP, mag in a.m., PT/INR - Oral hydro 10 q8 hours, morphine 2 mg iv prn for breakthrough pain - doc senna, miralax. lactulose on board discussed with RN and pt's daughter at bedside who is a nurse at our facility as well. Full code DVT prophylaxis: Patient on heparin drip Plan for today: Planned intervention in OR today for ORIF Plan for today May 06, 2023. Status post OR intervention on May 05, 2023. Pain is currently well-controlled. Patient noted to be ambulating with assistance of a walker and SLOT MACH[employer] F[employer] PERSON to the bathroom. Check stat INR. Start overlap with oral Coumadin 4 mg today. Further dosing to be dependent on INR checks right now and in the morning. Aim to discontinue heparin drip once INR reaches 2. Goal INR is 2.5-3.5 for mechanical aortic valve. Ongoing disposition planning. DC cefazolin as patient is already on ceftriaxone 1 g IV every 24 hours. This will suffice for perioperative prophylaxis Attestations 2 Medical Necessity Statement*: Start overlap with oral Coumadin until target INR is obtained. Coding Level of Care Code Acute Code for Chg Fwd Diagnoses High risk medication use Z79.899 Essential hypertension I10 Nonrheumatic mitral valve regurgitation I34.0 Cardiac valve disease etiology: nonrheumatic Aortic valve replaced Z95.2 H/O mechanical aortic valve replacement Z95.2 Pacemaker Z95.0 Chronic atrial fibrillation I48.20 History of common carotid artery stent placement Z98.890; Z95.828 Hypercholesterolemia E78.00 Chronic anticoagulation Z79.01 Hypothyroidism E03.9 Hip fracture, left S72.002A
[2023-05-06 16:36] LABS: Basophils % 0.2 %; Hematocrit 30.2 % (36-47); Lymphocytes % 6.1 %; Mean Corpuscular HGB Conc 32.8 g/dL (30-55); Mean Corpuscular Hemoglobin 31.9 pg (27-33); Mean Corpuscular Volume 97.4 fl (85-98); Mean Platelet Volume 9.3 fL (7.4-10.4); Monocytes # 1.2 10^3/uL (0.2-0.9); Monocytes % 7.5 %; Neutrophils # 13.39 10^3/uL (1.8-7.7); Neutrophils % 85.4 %; Nucleated Red Blood Cells % 0 %; Platelet Count 293 10^3/cmm (157-399); Red Cell Distribution Width 15.4 % (12.1-15.1); White Blood Count 15.67 10^3/uL (3.29-11.43)
[2023-05-06 16:57] LABS: INR 1.91 (0.8-1.2)
[2023-05-06 17:00] LABS: Alanine Aminotransferase 8 U/L (0-33); Alkaline Phosphatase 120 U/L (35-105); Anion Gap 15.6 (5-19); Aspartate Amino Transferase 18 U/L (0-32); Blood Urea Nitrogen 13 mg/dL (8-23); Calcium 8.8 mg/dL (8.5-10.5); Carbon Dioxide 24 mmol/L (22-29); Chloride 102 mmol/L (98-107); Globulin 2.9 g/dL (1.3-4.6); Glucose 140 mg/dL (65-115); Osmolality Calculated 288 mOsm/kg (285-295); Potassium 3.6 mmol/L (3.5-5.1); Sodium 138 mmol/L (136-145); Total Bilirubin 0.6 mg/dL (0.15-1.2); Total Protein 5.9 g/dL (6.6-8.7)
[2023-05-06] MEDS: warfarin 2 mg Tablet 4 MG PO (17:16)
[2023-05-07] VITALS (9 sets, daily range): BP systolic 105–134; BP diastolic 63–77; PULSE 71–106; RESP 14–19; TEMP 36.4–36.7; O2SAT 93–99; BMI 26.1
[2023-05-07] MEDS: HYDROcodone-acetaminophen 10-325 mg Tablet 1 TAB PO ×4 (01:27→22:13)
--- NOTE | 2023-05-07 04:35 | XRR_ITS ---
PROCEDURE INFORMATION: Exam: XR Left Hip Exam date and time: 05/07/2023 5:04 AM Age: 77 years old Clinical indication: Hip pain; Left hip; Prior surgery; Surgery date: 3-7 days post-operative; Surgery type: Recent hip surgery, patient able to move and tolerated xrays well. ; Additional info: Severe pain TECHNIQUE: Imaging protocol: Radiologic exam of the left hip. Views: 2 or 3 views hip with pelvis when performed. COMPARISON: CR XR hip LT 1V wo/w pel [id number] 05/05/2023 5:03 PM FINDINGS: Bones/joints: Status post left hip arthroplasty surgical change. The prosthesis is intact. There is a large bony fragment in the inferior medial aspect of the joint space. This measures 25.3 x 2.6 cm Soft tissues: Unremarkable. XR/XR hip LT 2-3V wo/w pel* [id number] IMPRESSION: Left hip arthroplasty surgical change. The prosthesis is intact. There is a large bony fragment in the inferior medial aspect of the joint space measuring 5.3 x 2.6 cm.
[2023-05-07 05:00] LABS: Basophils % 0.3 %; Eosinophils # 0.1 10^3/uL (0.0-0.8); Eosinophils % 0.3 %; Hematocrit 28.4 % (36-47); Lymphocytes # 1.4 10^3/uL (0.8-4.8); Lymphocytes % 9.5 %; Mean Corpuscular HGB Conc 32.7 g/dL (30-55); Mean Corpuscular Hemoglobin 31.8 pg (27-33); Mean Corpuscular Volume 97.3 fl (85-98); Mean Platelet Volume 9.4 fL (7.4-10.4); Monocytes # 1.2 10^3/uL (0.2-0.9); Neutrophils % 81.4 %; Nucleated Red Blood Cells % 0 %; Platelet Count 262 10^3/cmm (157-399); Red Blood Count 2.92 10^6/uL (3.85-5.65); Red Cell Distribution Width 15.5 % (12.1-15.1); White Blood Count 14.49 10^3/uL (3.29-11.43)
[2023-05-07 05:11] LABS: INR 2.43 (0.8-1.2)
[2023-05-07 05:22] LABS: Alanine Aminotransferase 7 U/L (0-33); Albumin Level 3.1 g/dL (3.5-5.2); Alkaline Phosphatase 119 U/L (35-105); Anion Gap 14.6 (5-19); Aspartate Amino Transferase 17 U/L (0-32); Blood Urea Nitrogen 12 mg/dL (8-23); Calcium 9.2 mg/dL (8.5-10.5); Carbon Dioxide 23 mmol/L (22-29); Chloride 102 mmol/L (98-107); Glucose 113 mg/dL (65-115); Osmolality Calculated 283 mOsm/kg (285-295); Potassium 3.6 mmol/L (3.5-5.1); Sodium 136 mmol/L (136-145); Total Bilirubin 0.9 mg/dL (0.15-1.2); Total Protein 6.1 g/dL (6.6-8.7)
[2023-05-07] MEDS: morphine 4 mg/mL SDV 1 mL 2 MG IVP (05:27)
--- NOTE | 2023-05-07 07:09 | P.PN_ITS ---
Subjective 2 Subjective: Patient in bed somewhat confused Vitals/I&O/Wt Last Vital Signs Temp 97.6 F 05/07/23 04:00 Pulse 82 05/07/23 06:00 Resp 18 05/07/23 05:27 BP 134/77 05/07/23 04:00 Pulse Ox 93 05/07/23 04:00 O2 Del Method Room Air 05/06/23 15:52 O2 Flow Rate 93 05/05/23 17:23 05/06/23 05/07/23 05/07/23 22:59 06:59 14:59 Intake Total 600 / 2055.416 Balance 600 / 5.416 Weight last 48 hrs Weight 157 lb 1.6 oz Weight 160 lb Physical Exam 2 Narrative: No extremities neurovascular intact Urinary Catheter Management: Juarez: Cath Placed During This Visit: yes, but has since been removed by the nurse Reason for Continuing Indwelling Catheter: Decision to DC Catheter Urinary Catheter Date of Insertion: 05/03/23 Urinary Catheter Time of Insertion: 10:56 Date Urinary Catheter Removed: 05/06/23 Time Urinary Catheter Discontinued: 09:30 Data 05/07/23 04:35 05/07/23 04:35 A&P Assessment and plan (1) Hip fracture, left: Patient is status post left hip hemiarthroplasty revision Up with physical therapy Weightbearing as tolerated Discharge planning DVT prophylaxis Qualifiers: Encounter type: subsequent encounter Fracture type: closed Fracture healing: with routine healing Qualified Code(s): S72.002D - Fracture of unspecified part of neck of left femur, subsequent encounter for closed fracture with routine healing Attestations 2 Medical Necessity Statement*: Per primary service Coding Level of Care Code Acute Code for [facility] Fwd Diagnoses Closed fracture of left hip with routine healing, subsequent encounter S72.002D Encounter type: subsequent encounter Fracture type: closed Fracture healing: with routine healing
[2023-05-07] MEDS: cefTRIAXone 1,000 MG in sodium chloride 0.9% (plus) 50 ML 100 MG IV (08:43)
[2023-05-07] MEDS: atorvastatin 40 mg Tablet PO (08:45)
[2023-05-07] MEDS: sennosides-docusate Tablet 1 TAB PO (08:45)
[2023-05-07] MEDS: metoprolol tartrate 25 mg Tablet 37.5 MG PO ×2 (08:45→17:52)
[2023-05-07] MEDS: cholecalciferol (vitamin D3) 1,000 unit Tablet 1000 UNIT PO (08:45)
[2023-05-07] MEDS: levothyroxine 200 mcg Tablet PO (08:45)
[2023-05-07] MEDS: donepezil 5 MG Tablet PO (08:45)
[2023-05-07] MEDS: polyethylene glycol 3350 Pkt 17 gm PO (08:48)
[2023-05-07] MEDS: cyanocobalamin 1,000 mcg Tablet 2500 MCG PO (11:04)
[2023-05-07] MEDS: warfarin 3 mg Tablet PO (15:45)
--- NOTE | 2023-05-07 17:34 | PM.PN ---
Subjective Subjective: INR 2.4. Heparin drip discontinued. No new complaints. Had hip pain yesterday for which x-ray was repeated, reviewed by orthopedics. Medications: Reviewed: Yes Vitals/I&O/Wt Last Vital Signs Temp 98.0 F 05/07/23 15:35 Pulse 71 05/07/23 15:35 Resp 16 05/07/23 15:35 BP 119/72 05/07/23 15:35 Pulse Ox 95 05/07/23 15:35 O2 Del Method Room Air 05/07/23 15:35 O2 Flow Rate 93 05/05/23 17:23 05/07/23 05/07/23 05/07/23 06:59 14:59 22:59 Intake Total 600 / 600 Balance 600 / 600 Weight last 48 hrs Weight 71.259 kg Weight 72.575 kg Physical Exam Narrative: General: No acute distress, AO x3 HEENT: PERRLA, pupils bilaterally equal and reactive, pallors not present Chest: Normal vesicular breath sounds, no added sounds, equal good air entry bilaterally CVS: S1-S2 regular, no murmurs, no tachycardia, no gallops, no rubs Abdomen: Soft, nontender, no organomegaly, bowel sounds present Neuro: No focal deficits, no facial deformity, AO x3, power 5/5 in all limbs Urinary Catheter Management: Juarez: Cath Placed During This Visit: yes, but has since been removed by the nurse Reason for Continuing Indwelling Catheter: Decision to DC Catheter Urinary Catheter Date of Insertion: 05/03/23 Urinary Catheter Time of Insertion: 10:56 Date Urinary Catheter Removed: 05/06/23 Time Urinary Catheter Discontinued: 09:30 Data 05/07/23 04:35 05/07/23 04:35 A&P Assessment and plan (1) High risk medication use: (2) Essential hypertension: (3) Mitral regurgitation: Qualifiers: Cardiac valve disease etiology: nonrheumatic Qualified Code(s): I34.0 - Nonrheumatic mitral (valve) insufficiency (4) Aortic valve replaced: (5) H/O mechanical aortic valve replacement: (6) Pacemaker: (7) Chronic atrial fibrillation: (8) History of common carotid artery stent placement: (9) Hypercholesterolemia: (10) Chronic anticoagulation: (11) Hypothyroidism: (12) Hip fracture, left: Qualifiers: Encounter type: subsequent encounter Fracture type: closed Fracture healing: with routine healing Qualified Code(s): S72.002D - Fracture of unspecified part of neck of left femur, subsequent encounter for closed fracture with routine healing Plan #Periprosthetic proximal femur fracture #Moderate pulmonary hypertension #Carotid artery stenosis status post stent #Status post pacemaker #Prosthetic aortic valve #Chronic anticoagulation #Chronic atrial fibrillation #Chronic diastolic heart failure #Dementia #Hyperlipidemia #Hypertension #Hypothyroidism ? Hold Plavix at this time, hold Coumadin ? Will bridge with heparin drip and hold 12 hours prior to surgery which is being planned for Friday at this time since implants need to be ordered that we do not currently have at's medical facility. Check a PTT every 6 hours. Patient is on high risk medication therefore will need frequent blood draws. Discussed with pharmacy. ? Consult Dr. Balderas. ? Continue atorvastatin, donepezil, home dose Lasix, levothyroxine, Toprol tartrate ? Check urine culture. Continue Rocephin daily ? Hold spironolactone at this time. Hold amlodipine. ? INR 1.83 today. Recheck INR daily ? Cardiac diet ? Morphine 2 mg every 4 hour as needed for pain ? Preop chest x-ray reviewed. Mild CHF. ? Place Juarez catheter. ? Add bowel regimen ? Check CBC, CMP, mag in a.m., PT/INR - Oral hydro 10 q8 hours, morphine 2 mg iv prn for breakthrough pain - doc senna, miralax. lactulose on board discussed with RN and pt's daughter at bedside who is a nurse at our facility as well. Full code DVT prophylaxis: Patient on heparin drip Plan for today: Planned intervention in OR today for ORIF Plan for today May 06, 2023. Status post OR intervention on May 05, 2023. Pain is currently well-controlled. Patient noted to be ambulating with assistance of a walker and PSYCHOLOGIST COUNSELING to the bathroom. Check stat INR. Start overlap with oral Coumadin 4 mg today. Further dosing to be dependent on INR checks right now and in the morning. Aim to discontinue heparin drip once INR reaches 2. Goal INR is 2.5-3.5 for mechanical aortic valve. Ongoing disposition planning. DC cefazolin as patient is already on ceftriaxone 1 g IV every 24 hours. This will suffice for perioperative prophylaxis Plan for today May 07, 2023. Therapeutic INR achieved at 2.4 today. Discontinued heparin infusion. Transition to p.o. warfarin. Awaiting appropriate disposition planning Attestations Medical Necessity Statement*: Awaiting appropriate disposition planning Coding Level of Care Code Acute Code for [facility] Fwd Diagnoses High risk medication use Z79.899 Essential hypertension I10 Nonrheumatic mitral valve regurgitation I34.0 Cardiac valve disease etiology: nonrheumatic Aortic valve replaced Z95.2 H/O mechanical aortic valve replacement Z95.2 Pacemaker Z95.0 Chronic atrial fibrillation I48.20 History of common carotid artery stent placement Z98.890; Z95.828 Hypercholesterolemia E78.00 Chronic anticoagulation Z79.01 Hypothyroidism E03.9 Closed fracture of left hip with routine healing, subsequent encounter S72.002D Encounter type: subsequent encounter Fracture type: closed Fracture healing: with routine healing
[2023-05-08] VITALS (9 sets, daily range): BP systolic 91–154; BP diastolic 60–85; PULSE 60–110; RESP 14–18; TEMP 36.3–36.7; O2SAT 93–97
[2023-05-08] MEDS: HYDROcodone-acetaminophen 10-325 mg Tablet 1 TAB PO ×3 (03:13→23:53)
[2023-05-08 03:48] LABS: Basophils % 0.2 %; Eosinophils # 0.3 10^3/uL (0.0-0.8); Eosinophils % 2.4 %; Hematocrit 28.7 % (36-47); Lymphocytes # 1.6 10^3/uL (0.8-4.8); Lymphocytes % 13.6 %; Mean Corpuscular HGB Conc 32.8 g/dL (30-55); Mean Corpuscular Hemoglobin 31.8 pg (27-33); Mean Platelet Volume 9.1 fL (7.4-10.4); Neutrophils # 9.11 10^3/uL (1.8-7.7); Neutrophils % 75.2 %; Nucleated Red Blood Cells % 0 %; Platelet Count 270 10^3/cmm (157-399); Red Blood Count 2.96 10^6/uL (3.85-5.65); Red Cell Distribution Width 15.6 % (12.1-15.1)
[2023-05-08 04:02] LABS: INR 2.55 (0.8-1.2)
[2023-05-08 04:15] LABS: Alanine Aminotransferase 8 U/L (0-33); Alkaline Phosphatase 115 U/L (35-105); Anion Gap 14.3 (5-19); Aspartate Amino Transferase 19 U/L (0-32); Blood Urea Nitrogen 13 mg/dL (8-23); Calcium 8.9 mg/dL (8.5-10.5); Carbon Dioxide 26 mmol/L (22-29); Chloride 101 mmol/L (98-107); Globulin 3.1 g/dL (1.3-4.6); Glucose 108 mg/dL (65-115); Osmolality Calculated 287 mOsm/kg (285-295); Potassium 3.3 mmol/L (3.5-5.1); Sodium 138 mmol/L (136-145); Total Bilirubin 0.8 mg/dL (0.15-1.2); Total Protein 6.1 g/dL (6.6-8.7)
[2023-05-08] MEDS: morphine 4 mg/mL SDV 1 mL 2 MG IVP (05:32)
[2023-05-08] MEDS: cefTRIAXone 1,000 MG in sodium chloride 0.9% (plus) 50 ML 100 MG IV (08:11)
[2023-05-08] MEDS: levothyroxine 200 mcg Tablet PO (08:12)
[2023-05-08] MEDS: donepezil 5 MG Tablet PO (08:12)
[2023-05-08] MEDS: atorvastatin 40 mg Tablet PO (08:12)
[2023-05-08] MEDS: cholecalciferol (vitamin D3) 1,000 unit Tablet 1000 UNIT PO (08:12)
[2023-05-08] MEDS: metoprolol tartrate 25 mg Tablet 37.5 MG PO (08:12)
[2023-05-08] MEDS: sennosides-docusate Tablet 1 TAB PO (08:12)
[2023-05-08] MEDS: polyethylene glycol 3350 Pkt 17 gm PO (08:12)
--- NOTE | 2023-05-08 09:37 | P.PN_ITS ---
Subjective 2 Subjective: Patient improving pain better controlled today. Ambulated to the bathroom Vitals/I&O/Wt Last Vital Signs Temp 97.7 F 05/08/23 08:31 Pulse 95 05/08/23 08:31 Resp 18 05/08/23 08:31 BP 129/82 05/08/23 08:31 Pulse Ox 97 05/08/23 08:31 O2 Del Method Room Air 05/08/23 08:31 O2 Flow Rate 93 05/05/23 17:23 05/07/23 05/08/23 05/08/23 22:59 06:59 14:59 Intake Total 290 / 890 240 / 1130 240 / 240 Balance 290 / 890 240 / 1130 240 / 240 Weight last 48 hrs Weight 158 lb 6.4 oz Weight 157 lb 1.6 oz Physical Exam 2 Narrative: Patient resting complaint bed pain better controlled. Able to flex her hip. Urinary Catheter Management: Juarez: Cath Placed During This Visit: yes, but has since been removed by the nurse Reason for Continuing Indwelling Catheter: Decision to DC Catheter Urinary Catheter Date of Insertion: 05/03/23 Urinary Catheter Time of Insertion: 10:56 Date Urinary Catheter Removed: 05/06/23 Time Urinary Catheter Discontinued: 09:30 Data 05/08/23 03:06 05/08/23 03:06 A&P Assessment and plan (1) Closed fracture of left hip: Patient status post hip hemiarthroplasty. Up with physical therapy Discharge planning Qualifiers: Encounter type: initial encounter Qualified Code(s): S72.002A - Fracture of unspecified part of neck of left femur, initial encounter for closed fracture Attestations 2 Medical Necessity Statement*: Per primary service Coding Level of Care Code Acute Code for [facility] Fwd Diagnoses Closed fracture of left hip S72.002A Encounter type: initial encounter
[2023-05-08] MEDS: cyanocobalamin 1,000 mcg Tablet 2500 MCG PO (11:18)
--- NOTE | 2023-05-08 12:23 | PM.PN ---
Subjective Subjective: No new complaints today. Pain is well-controlled. Appears to be slightly dehydrated. Afebrile. INR 2.5. Medications: Reviewed: Yes Vitals/I&O/Wt Last Vital Signs Temp 98.0 F 05/08/23 11:32 Pulse 62 05/08/23 11:32 Resp 16 05/08/23 11:32 BP 91/60 05/08/23 11:32 Pulse Ox 94 05/08/23 11:32 O2 Del Method Room Air 05/08/23 11:32 O2 Flow Rate 93 05/05/23 17:23 05/07/23 05/08/23 05/08/23 22:59 06:59 14:59 Intake Total 290 / 890 240 / 1130 240 / 240 Balance 290 / 890 240 / 1130 240 / 240 Weight last 48 hrs Weight 71.849 kg Weight 71.259 kg Physical Exam Narrative: General: No acute distress, AO x3 HEENT: PERRLA, pupils bilaterally equal and reactive, pallors not present Chest: Normal vesicular breath sounds, no added sounds, equal good air entry bilaterally CVS: S1-S2 regular, no murmurs, no tachycardia, no gallops, no rubs Abdomen: Soft, nontender, no organomegaly, bowel sounds present Neuro: No focal deficits, no facial deformity, AO x3, power 5/5 in all limbs Extremities: no edema, clubbing or cyanosis Urinary Catheter Management: Juarez: Cath Placed During This Visit: yes, but has since been removed by the nurse Reason for Continuing Indwelling Catheter: Decision to DC Catheter Urinary Catheter Date of Insertion: 05/03/23 Urinary Catheter Time of Insertion: 10:56 Date Urinary Catheter Removed: 05/06/23 Time Urinary Catheter Discontinued: 09:30 Data 05/08/23 03:06 05/08/23 03:06 A&P Assessment and plan (1) High risk medication use: (2) Essential hypertension: (3) Mitral regurgitation: Qualifiers: Cardiac valve disease etiology: nonrheumatic Qualified Code(s): I34.0 - Nonrheumatic mitral (valve) insufficiency (4) Aortic valve replaced: (5) H/O mechanical aortic valve replacement: (6) Pacemaker: (7) Chronic atrial fibrillation: (8) History of common carotid artery stent placement: (9) Hypercholesterolemia: (10) Chronic anticoagulation: (11) Hypothyroidism: (12) Hip fracture, left: Qualifiers: Encounter type: subsequent encounter Fracture healing: with routine healing Fracture type: closed Qualified Code(s): S72.002D - Fracture of unspecified part of neck of left femur, subsequent encounter for closed fracture with routine healing Plan #Periprosthetic proximal femur fracture #Moderate pulmonary hypertension #Carotid artery stenosis status post stent #Status post pacemaker #Prosthetic aortic valve #Chronic anticoagulation #Chronic atrial fibrillation #Chronic diastolic heart failure #Dementia #Hyperlipidemia #Hypertension #Hypothyroidism ? Hold Plavix at this time, hold Coumadin ? Will bridge with heparin drip and hold 12 hours prior to surgery which is being planned for Friday at this time since implants need to be ordered that we do not currently have at's medical facility. Check a PTT every 6 hours. Patient is on high risk medication therefore will need frequent blood draws. Discussed with pharmacy. ? Consult Dr. Balderas. ? Continue atorvastatin, donepezil, home dose Lasix, levothyroxine, Toprol tartrate ? Check urine culture. Continue Rocephin daily ? Hold spironolactone at this time. Hold amlodipine. ? INR 1.83 today. Recheck INR daily ? Cardiac diet ? Morphine 2 mg every 4 hour as needed for pain ? Preop chest x-ray reviewed. Mild CHF. ? Place Juarez catheter. ? Add bowel regimen ? Check CBC, CMP, mag in a.m., PT/INR - Oral hydro 10 q8 hours, morphine 2 mg iv prn for breakthrough pain - doc senna, miralax. lactulose on board discussed with RN and pt's daughter at bedside who is a nurse at our facility as well. Full code DVT prophylaxis: Patient on heparin drip Plan for today: Planned intervention in OR today for ORIF Plan for today May 06, 2023. Status post OR intervention on May 05, 2023. Pain is currently well-controlled. Patient noted to be ambulating with assistance of a walker and TENT WORKER to the bathroom. Check stat INR. Start overlap with oral Coumadin 4 mg today. Further dosing to be dependent on INR checks right now and in the morning. Aim to discontinue heparin drip once INR reaches 2. Goal INR is 2.5-3.5 for mechanical aortic valve. Ongoing disposition planning. DC cefazolin as patient is already on ceftriaxone 1 g IV every 24 hours. This will suffice for perioperative prophylaxis Plan for today May 07, 2023. Therapeutic INR achieved at 2.4 today. Discontinued heparin infusion. Transition to p.o. warfarin. Awaiting appropriate disposition planning Plan for today May 08, 2023. INR at 2.5. Continue Coumadin 3 mg daily. Resume home dose of Plavix 75 mg p.o. daily. Noted to be mildly dehydrated today. Gentle IV hydration with normal saline. Blood pressure 90/60 soft systolics this morning, reduce metoprolol from 37.5 twice daily to 25 mg p.o. twice daily. Awaiting appropriate disposition planning Attestations Medical Necessity Statement*: Awaiting appropriate disposition planning Coding Level of Care Code Acute Code for [facility] Fwd Diagnoses High risk medication use Z79.899 Essential hypertension I10 Nonrheumatic mitral valve regurgitation I34.0 Cardiac valve disease etiology: nonrheumatic Aortic valve replaced Z95.2 H/O mechanical aortic valve replacement Z95.2 Pacemaker Z95.0 Chronic atrial fibrillation I48.20 History of common carotid artery stent placement Z98.890; Z95.828 Hypercholesterolemia E78.00 Chronic anticoagulation Z79.01 Hypothyroidism E03.9 Closed fracture of left hip with routine healing, subsequent encounter S72.002D Encounter type: subsequent encounter Fracture healing: with routine healing Fracture type: closed
[2023-05-08] MEDS: potassium chloride ER 20 mEq Tablet 40 MEQ PO (13:03)
[2023-05-08] MEDS: clopidogrel 75 mg Tablet PO (13:03)
[2023-05-08] MEDS: sodium chloride 0.9% 1,000 ML 75 ML IV (13:23)
[2023-05-08] MEDS: warfarin 3 mg Tablet PO (16:39)
[2023-05-08] MEDS: metoprolol tartrate 25 mg Tablet PO (18:18)
[2023-05-09] VITALS: BP 147/82; PULSE 85; RESP 17; TEMP 36.4; O2SAT 100
[2023-05-09 03:55] LABS: Basophils % 0.3 %; Eosinophils # 0.3 10^3/uL (0.0-0.8); Eosinophils % 2.3 %; Hematocrit 26.9 % (36-47); Lymphocytes # 1.5 10^3/uL (0.8-4.8); Lymphocytes % 12.9 %; Mean Corpuscular HGB Conc 33.5 g/dL (30-55); Mean Corpuscular Hemoglobin 31.8 pg (27-33); Mean Corpuscular Volume 95.1 fl (85-98); Mean Platelet Volume 9.1 fL (7.4-10.4); Monocytes # 0.8 10^3/uL (0.2-0.9); Monocytes % 6.5 %; Neutrophils # 9.23 10^3/uL (1.8-7.7); Neutrophils % 77.3 %; Nucleated Red Blood Cells % 0 %; Platelet Count 283 10^3/cmm (157-399); Red Blood Count 2.83 10^6/uL (3.85-5.65); Red Cell Distribution Width 15.4 % (12.1-15.1); White Blood Count 11.95 10^3/uL (3.29-11.43)
[2023-05-09 04:00] VITALS: BP 131/84; PULSE 91; RESP 17; TEMP 36.8; O2SAT 97
[2023-05-09 04:05] LABS: INR 2.59 (0.8-1.2)
[2023-05-09 04:20] LABS: Alanine Aminotransferase 9 U/L (0-33); Albumin Level 2.9 g/dL (3.5-5.2); Alkaline Phosphatase 102 U/L (35-105); Anion Gap 14.6 (5-19); Aspartate Amino Transferase 17 U/L (0-32); Blood Urea Nitrogen 11 mg/dL (8-23); Calcium 8.9 mg/dL (8.5-10.5); Carbon Dioxide 24 mmol/L (22-29); Chloride 105 mmol/L (98-107); Globulin 2.7 g/dL (1.3-4.6); Glucose 107 mg/dL (65-115); Osmolality Calculated 290 mOsm/kg (285-295); Potassium 3.6 mmol/L (3.5-5.1); Sodium 140 mmol/L (136-145); Total Protein 5.6 g/dL (6.6-8.7)
[2023-05-09] MEDS: HYDROcodone-acetaminophen 10-325 mg Tablet 1 TAB PO ×2 (05:00→09:53)
--- NOTE | 2023-05-09 06:46 | PM.PN ---
Subjective Subjective: Sitting up at the bedside pain is controlled ambulated with a walker. Asking if she can go home. Vitals/I&O/Wt Last Vital Signs Temp 98.2 F 05/09/23 04:00 Pulse 91 05/09/23 04:00 Resp 17 05/09/23 04:00 BP 131/84 05/09/23 04:00 Pulse Ox 97 05/09/23 04:00 O2 Del Method Room Air 05/09/23 04:00 O2 Flow Rate 93 05/05/23 17:23 05/08/23 05/08/23 05/09/23 14:59 22:59 06:59 Intake Total 480 / 480 290 / 770 1000 / 1770 Balance 480 / 480 290 / 770 1000 / 1770 Weight last 48 hrs Weight 159 lb Weight 158 lb 6.4 oz Physical Exam Narrative: Sitting up at the bedside pain is controlled Urinary Catheter Management: Juarez: Cath Placed During This Visit: yes, but has since been removed by the nurse Reason for Continuing Indwelling Catheter: Decision to DC Catheter Urinary Catheter Date of Insertion: 05/03/23 Urinary Catheter Time of Insertion: 10:56 Date Urinary Catheter Removed: 05/06/23 Time Urinary Catheter Discontinued: 09:30 Data 05/09/23 03:08 05/09/23 03:08 A&P Assessment and plan (1) Periprosthetic fracture around internal prosthetic left hip joint, initial encounter: Status post hip hemiarthroplasty revision Okay to discharge from orthopedic standpoint Follow-up in clinic in 2 weeks to get daryl out Attestations Medical Necessity Statement*: Per primary service Coding Level of Care Code Acute Code for [facility] Fwd Diagnoses Periprosthetic fracture around internal prosthetic left hip joint, initial encounter M97.02XA
[2023-05-09 08:00] VITALS: BP 154/80; PULSE 97; RESP 16; TEMP 36.6; O2SAT 99
[2023-05-09] MEDS: polyethylene glycol 3350 Pkt 17 gm PO (08:10)
[2023-05-09] MEDS: metoprolol tartrate 25 mg Tablet PO (08:11)
[2023-05-09] MEDS: cholecalciferol (vitamin D3) 1,000 unit Tablet 1000 UNIT PO (08:11)
[2023-05-09] MEDS: levothyroxine 200 mcg Tablet PO (08:11)
[2023-05-09] MEDS: donepezil 5 MG Tablet PO (08:11)
[2023-05-09] MEDS: clopidogrel 75 mg Tablet PO (08:11)
[2023-05-09] MEDS: sennosides-docusate Tablet 1 TAB PO (08:11)
[2023-05-09] MEDS: atorvastatin 40 mg Tablet PO (08:11)
[2023-05-09] MEDS: cyanocobalamin 1,000 mcg Tablet 2500 MCG PO (09:54)
[2023-05-09] MEDS: cefTRIAXone 1,000 MG in sodium chloride 0.9% (plus) 50 ML 100 MG IV (09:58)
[2023-05-09 12:00] VITALS: BP 148/77; PULSE 108; RESP 15; TEMP 36.4; O2SAT 99
[2023-05-09] MEDS: warfarin 3 mg Tablet PO (14:13)
[2023-05-09] MEDS: FUROsemide 10 mg/mL SDV 2mL 20 MG IVP (14:13)
--- NOTE | 2023-05-09 14:33 | P.DS_ITS ---
Discharge Providers Date of Admission: 05/03/23 07:17 Date of Discharge: May 09, 2023 Attending Provider at Admission: Lisa Tuttle MD Attending Provider at Discharge: Juanis Vega MD Primary Care Provider: Ruy Palacio MD Diagnoses at Discharge Discharge Diagnosis (1) Periprosthetic fracture around internal prosthetic left hip joint, initial encounter: Status: Acute (2) UTI (urinary tract infection): Status: Acute (3) High risk medication use: Status: Acute (4) H/O mechanical aortic valve replacement: Status: Acute (5) Pulmonary hypertension: Status: Acute Reason for Visit Reason for Visit: HIP PAIN Brief History: Jennifer You is a 77 year old female with past medical history of mechanical aortic valve, carotid artery stent, chronic atrial fibrillation, chronic anticoagulation with Coumadin, hypertension, hypothyroidism, spinal stenosis, depression, dementia presented to the hospital complaining of severe left hip pain. About a month ago she had a left subcapital hip fracture for which she underwent arthroplasty at our facility.she felt a sudden popping sensation in her left hip and started to have severe pain on day of admission. She was found to have periprosthetic proximal femur fracture for which she underwent revision surgery with Dr. Balderas on 05/05/23. Pre procedure she was on heparin infusion and coumadin was placed on hold. This was resumed postoperatively. She received overlap with heparin infusion and Coumadin until INR reached 2.5. Currently she is on Coumadin 3 mg p.o. daily. Recommended to obtain an INR check on Friday to ensure that no further dose adjustments are needed. She received IV fluids during the course of admission due to dehydration. Her home dose of Lasix had remained on hold. Today she is noted to have developing lower extremity swelling therefore she received 20 mg IV Lasix today. Her home dose of 40 mg p.o. twice daily Lasix has been resumed at the time of discharge. She is saturating 97% on room air. There is no respiratory distress or other signs of pulmonary edema. She was also diagnosed with a UTI for which she was treated with ceftriaxone. Urine culture showed susceptible E. coli. She participated with physical therapy on several occasions and is ambulating within the room with a walker. Physical Exam Narrative: General: No acute distress, AO x3 HEENT: PERRLA, pupils bilaterally equal and reactive, pallors not present Chest: Normal vesicular breath sounds, no added sounds, equal good air entry bilaterally CVS: S1-S2 regular, no murmurs, no tachycardia, no gallops, no rubs Abdomen: Soft, nontender, no organomegaly, bowel sounds present Neuro: No focal deficits, no facial deformity, AO x3, power 5/5 in all limbs Extremities: Bilateral lower extremity pitting edema Urinary Catheter Management: Juarez: Cath Placed During This Visit: yes, but has since been removed by the nurse Reason for Continuing Indwelling Catheter: Decision to DC Catheter Urinary Catheter Date of Insertion: 05/03/23 Urinary Catheter Time of Insertion: 10:56 Date Urinary Catheter Removed: 05/06/23 Time Urinary Catheter Discontinued: 09:30 Discharge Data Studies Completed and Pending Completed Studies During Hospitalization Category Date Time Status CT hip LT wo con* [id number] Stat Cat Scan 05/03/23 06:22 Completed XR chest 1V portable [id number] Stat Exams 05/03/23 07:21 Completed XR hip LT 1V wo/w pel [id number] Routine Exams 05/05/23 16:51 Completed XR hip LT 2-3V wo/w pel* [id number] Stat Exams 05/03/23 06:05 Completed XR hip LT 2-3V wo/w pel* [id number] Stat Exams 05/07/23 04:35 Completed Pending at discharge Category Date Time Status SARS Covid-2 Antigen Routine Lab 05/09/23 14:00 Received Radiology Impressions Hip CT 05/03/23 06:22 IMPRESSION: Fracture of the proximal femur. Chest X-Ray 05/03/23 07:21 IMPRESSION: Mild CHF. Hip X-Ray 05/05/23 16:51 IMPRESSION: Intact left hip prosthesis Hip/Pelvis X-Ray 05/07/23 04:35 IMPRESSION: Left hip arthroplasty surgical change. The prosthesis is intact. There is a large bony fragment in the inferior medial aspect of the joint space measuring 5.3 x 2.6 cm. Laboratory Results WBC 11.95 10^3/uL (3.29-11.43) H 05/09/23 03:08 RBC 2.83 10^6/uL (3.85-5.65) L 05/09/23 03:08 Hgb 9.00 g/dL (11.27-16.99) L 05/09/23 03:08 Hct 26.9 % (36-47) L 05/09/23 03:08 MCV 95.1 fl (85-98) 05/09/23 03:08 MCH 31.8 pg (27-33) 05/09/23 03:08 MCHC 33.5 g/dL (30-55) 05/09/23 03:08 RDW 15.4 % (12.1-15.1) H 05/09/23 03:08 Plt Count 283 10^3/cmm (157-399) 05/09/23 03:08 MPV 9.1 fL (7.4-10.4) 05/09/23 03:08 Neut % (Auto) 77.3 % 05/09/23 03:08 Lymph % (Auto) 12.9 % 05/09/23 03:08 [place] % (Auto) 6.5 % 05/09/23 03:08 Eos % (Auto) 2.3 % 05/09/23 03:08 Baso % (Auto) 0.3 % 05/09/23 03:08 Neut # (Auto) 9.23 10^3/uL (1.8-7.7) H 05/09/23 03:08 Lymph # (Auto) 1.5 10^3/uL (0.8-4.8) 05/09/23 03:08 [place] # (Auto) 0.8 10^3/uL (0.2-0.9) 05/09/23 03:08 Eos # (Auto) 0.3 10^3/uL (0.0-0.8) 05/09/23 03:08 Baso # (Auto) 0.0 10^3/uL (0.0-0.1) 05/09/23 03:08 Nucleated RBC % (auto) 0 % 05/09/23 03:08 Nucleated RBCs # 0.0 /100WBC 05/09/23 03:08 PT 28.70 SECONDS (12.1-14.9) H 05/09/23 03:08 INR 2.59 (0.8-1.2) H 05/09/23 03:08 APTT 52.2 SECONDS (23.9-36.7) H 05/06/23 08:40 Sodium 140 mmol/L (136-145) 05/09/23 03:08 Potassium 3.6 mmol/L (3.5-5.1) 05/09/23 03:08 Chloride 105 mmol/L (98-107) 05/09/23 03:08 Carbon Dioxide 24 mmol/L (22-29) 05/09/23 03:08 Anion Gap 14.6 (5-19) 05/09/23 03:08 BUN 11 mg/dL (8-23) 05/09/23 03:08 Creatinine 0.5 mg/dL (0.5-0.9) 05/09/23 03:08 GFR Calculation Not Reportable 05/09/23 03:08 Glucose 107 mg/dL (65-115) 05/09/23 03:08 Estimat Average Glucose 103 05/03/23 07:05 Hemoglobin A1c 5.2 % (4.0-6.0) 05/03/23 07:05 Calculated Osmolality 290 mOsm/kg (285-295) 05/09/23 03:08 Calcium 8.9 mg/dL (8.5-10.5) 05/09/23 03:08 Magnesium 2.0 mg/dL (1.7-2.3) 05/04/23 05:16 Total Bilirubin 1.0 mg/dL (0.15-1.2) 05/09/23 03:08 AST 17 U/L (0-32) 05/09/23 03:08 ALT 9 U/L (0-33) 05/09/23 03:08 Alkaline Phosphatase 102 U/L (35-105) 05/09/23 03:08 NT-Pro-B Natriuret Pep 2934 pg/mL (0-450) H 05/03/23 07:05 Total Protein 5.6 g/dL (6.6-8.7) L 05/09/23 03:08 Albumin 2.9 g/dL (3.5-5.2) L 05/09/23 03:08 Globulin 2.7 g/dL (1.3-4.6) 05/09/23 03:08 Procalcitonin 0.02 ng/mL (0-0.5) 05/03/23 07:05 Urine Color Yellow (Yellow) 05/03/23 08:13 Urine Appearance Hazy (CLEAR) A 05/03/23 08:13 Urine pH 5 (5-7) 05/03/23 08:13 Ur Specific [place] 1.020 (1.005-1.030) 05/03/23 08:13 Urine Protein Neg (Negative) 05/03/23 08:13 Urine Glucose (UA) Norm (Normal) 05/03/23 08:13 Urine Ketones Negative (Negative) 05/03/23 08:13 Urine Blood Neg (Negative) 05/03/23 08:13 Urine Nitrate Positive (Negative) H 05/03/23 08:13 Urine Bilirubin Neg (Negative) 05/03/23 08:13 Urine Urobilinogen Neg mg/dL (Negative) 05/03/23 08:13 Ur Leukocyte Esterase 2+ (Negative) H 05/03/23 08:13 Urine RBC 0-4 /hpf (0-2) H 05/03/23 08:13 Urine WBC 55-80 /hpf (0-5) H 05/03/23 08:13 Ur Squamous Epith Cells 0-4 /hpf (0-5) H 05/03/23 08:13 Amorphous Sediment Not Reportable 05/03/23 08:13 Urine Bacteria 4+ /hpf (NONE) H 05/03/23 08:13 Blood Type A Positive 05/05/23 14:10 Rho(D) Type Rh positive 05/05/23 14:10 Antibody Screen Negative 05/05/23 14:10 Vitals Last Vital Signs Temp 97.5 F L 05/09/23 12:00 Pulse 108 H 05/09/23 12:00 Resp 15 05/09/23 12:00 BP 148/77 05/09/23 12:00 Pulse Ox 99 05/09/23 12:00 O2 Del Method Room Air 05/09/23 12:00 O2 Flow Rate 93 05/05/23 17:23 Discharge Plan Discharge Patient Disposition: Home Condition: Stable Prescriptions: New hydrocodone-acetaminophen 10-325 mg Tablet 1 tab PO TID PRN (Reason: Moderate Pain) 5 Days Qty: 15 0RF Jantoven 3 mg Tablet 3 mg PO DAILY@1400 30 Days Qty: 30 0RF Continued multivitamin Tablet 1 tab PO DAILY sennosides-docusate sodium 8.6-50 mg tablet 1 tab PO DAILY cyclobenzaprine 10 mg tablet 10 mg PO TID PRN (Reason: muscle spasm) 10 Days Qty: 30 3RF cholecalciferol (vitamin D3) 25 mcg (1,000 unit) capsule 25 mcg PO DAILY metoprolol tartrate 25 mg tablet 37.5 mg PO BID Qty: 270 3RF amlodipine 5 mg tablet 5 mg PO DAILY Qty: 90 2RF clopidogrel [Plavix] 75 mg tablet 75 mg PO DAILY Qty: 90 3RF levothyroxine 200 mcg tablet 200 mcg PO DAILY Qty: 90 3RF spironolactone 25 mg tablet 25 mg PO DAILY Qty: 90 3RF potassium chloride 20 mEq tablet extended release 20 meq PO BID@10,21 Qty: 180 3RF cyanocobalamin (vitamin B-12) 1,000 mcg tablet 2,500 mcg PO DAILY@1000 atorvastatin 40 mg tablet 40 mg PO DAILY donepezil 5 mg tablet 5 mg PO DAILY hydrocodone-acetaminophen 10-325 mg tablet 1 tab PO 5XD PRN (Reason: pain) Qty: 10 0RF Nitrostat 0.4 mg Tablet, Sublingual 0.4 mg SUBLINGUAL Q5M PRN (Reason: Chest Pain) Rx Instructions: do not exceed 3 doses per episode furosemide 40 mg tablet 40 mg PO BID Qty: 180 3RF Discontinued warfarin 2 mg Tablet See Rx Instructions .ROUTE .COMPLEX Rx Instructions: hold 04/29/23,fri04/30/23,05/01/23 then start taking on friday05/02/23 take 2mg po qpm until recheck is done on friday05/05/23 Discharge Orders: Discharge Order (Routine); Ordered 05/09/23 Ordered By: Juanis Vega Other Ambulatory Orders: Prothrombin Time INR (Routine) Timeframe: 2 Days Facility: [facility] - Location: Lab - Main Lab Ordered By: Juanis Vega Referrals: Edward Balderas DO [Physician] - 1 week (We have notified your physician's clinic of the need for a follow-up appointment to be scheduled. If you have not heard from them within the next 2 business days, please call them directly. ) Ruy Palacio MD [Primary Care Provider] - 4-7 days Discharge Diet: Usual diet Discharge Activity: Resume usual activity Patient Instructions: Hydrocodone/Acetaminophen (By mouth), Warfarin (By mouth), Opioid Safety Activity Restrictions/Additional Instructions: You are being discharged from the hospital today during which time you have been under the care of Dr. Balderas. You had a periprosthetic fracture. You were treated for this injury with revision hip hemiarthroplasty. You may resume you normal diet (including any special diets as directed by your primary doctor) as well as your home medications. You should follow up with you primary doctor if you have any questions regarding medication you took prior to your stay in the hospital. You may take your pain medication as prescribed. After the first few days, take your pain medication as needed. Do not drive or drink alcohol while taking your pain medication. Your injury may increase your risk of developing a blood clot,or DVT, in your arm or leg. This could potentially dislodge and travel to your lungs and become a life threatening condition called apulmonary embolus,or PE. You have been prescribed Coumadin to be taken to prevent this. Frequent movement of the legs will also help prevent this from occurring. If you develop any new or worsening cough, chestpain, bloody sputum or shortness of breath, call 911 or go to the EmergencyRoom. Always keep your surgical incision/dressing clean and dry. If you experience increasing pain at your incision site, redness, swelling, increasing discharge, foul odors, or fevers (greater than 100.4), night sweats or chills you should call the office at the above number. If you feel this is an emergency you should be evaluated in the Emergency Department of a nearby hospital. Orthopedic Patient Instructions Summary: Weight Bearing: As tolerated Activity: As tolerated. Diet: Regular. Wound Care: Keep dressing clean and dry. Anticoagulation: Coumadin Pain Medication: Take only as needed. Ice, rest and elevation will be of great benefit. Please plan to follow-up shy Conrad [] in [] weeks. You will need to call the clinic [phone] to schedule this visit. Thank you far allowing me to participate in your care. Do not hesitate to call the office with any questions or concerns. Discharge Attestations Time Spent in Discharge Care*: greater than 30 min Quality Metrics Clinical Quality Measures [ No reported AMI, CVA or VTE this stay] Coding Level of Care Code Acute Code for Chg Fwd Diagnoses Periprosthetic fracture around internal prosthetic left hip joint, initial encounter M97.02XA UTI (urinary tract infection) N39.0 High risk medication use Z79.899 H/O mechanical aortic valve replacement Z95.2 Pulmonary hypertension I27.20
[2023-05-09 14:43] LABS: SARS Covid-2 Antigen negative (Negative)
--- NOTE | 2023-05-09 14:49 | PC.OT ---
Pt declines OT tx due to discharge to [facility]; pt has no further questions at this time.
[2023-05-09 15:15] VITALS: BP 148/77; PULSE 108; RESP 15; TEMP 36.4; O2SAT 99
== END 2023-05-09 15:15 | disposition home or self-care (01) | DRG 467 ==
LOC: ER 07:23 → MEDSURG 09:12
PROVIDERS: Orthopaedic Surgery; Admitting Provider Internal Medicine; Emergency Provider Family Medicine; PCP Family Medicine; Visit Provider Student in an Organized Health Care Education/Training Program
PROC: 0SRS0JZ Replacement of Left Hip Joint, Femoral Surface with Synthetic Substitute, Open Approach (ICD-10-PCS; CPT 27125; principal; 2023-05-05 15:15)
DX: M97.02XA Periprosthetic fracture around internal prosthetic left hip joint, initial encounter (principal); I48.20 Chronic atrial fibrillation, unspecified; I50.32 Chronic diastolic (congestive) heart failure; N30.90 Cystitis, unspecified without hematuria; B96.20 Unspecified Escherichia coli [E. coli] as the cause of diseases classified elsewhere; Z95.0 Presence of cardiac pacemaker; Z79.01 Long term (current) use of anticoagulants; F32.A Depression, unspecified; E78.00 Pure hypercholesterolemia, unspecified; E03.9 Hypothyroidism, unspecified; I11.0 Hypertensive heart disease with heart failure; F17.210 Nicotine dependence, cigarettes, uncomplicated; F03.90 Unspecified dementia, unspecified severity, without behavioral disturbance, psychotic disturbance, mood disturbance, and anxiety; I34.0 Nonrheumatic mitral (valve) insufficiency; I27.20 Pulmonary hypertension, unspecified; E86.0 Dehydration; Z95.2 Presence of prosthetic heart valve
CPT/HCPCS: 36415; 51702; 71045; 73501; 73502; 73700; 80048; 80053; 81001; 83036; 83735; 83880; 84145; 85025; 85610; 85730; 86850; 86900; 87077; 87086; 87186; 87426; 93005; 94664; 96374; 96375; 97110; 97116; 97163; 97167; 97530; 97535; 99285; C1776; J0690; J0696; J1100; J1170; J1644; J1940; J2270; J2405; J2704; J2710; J3010; J3370; J3490; J7030; Q3014

== ENCOUNTER 2023-05-10 09:34 | Emergency (ER) | payer MEDICARE, MEDICAID, SELFPAY ==
[2023-05-10] VITALS (10 sets, daily range): BP systolic 108–158; BP diastolic 55–103; PULSE 101–143; RESP 16–27; TEMP 36.8; O2SAT 91–100
--- NOTE | 2023-05-10 10:24 | XRR_ITS ---
PROCEDURE INFORMATION: Exam: XR Bilateral Hips Exam date and time: 05/10/2023 10:38 AM Age: 77 years old Clinical indication: Hip pain; Left hip; Prior surgery; Surgery date: 3-7 days post-operative; Surgery type: Lt hip; Additional info: Post-op hip pain TECHNIQUE: Imaging protocol: Radiologic exam of the bilateral hips. Views: 2 views of hips with pelvis when performed. COMPARISON: CR (PELVIS, ) 05/07/2023 5:04 AM FINDINGS: Bones/joints: Posteriorly dislodged left hip arthroplasty. New acetabular fracture difficult to entirely exclude by radiograph given pre-existing fractures. Soft tissues: No acute findings. XR/XR hip BI 3-4V wo/w pel [id number] IMPRESSION: Posteriorly dislocated left hip prosthesis.
--- NOTE | 2023-05-10 12:06 | ED_ITS ---
HPI - Extremity Problem General: Chief complaint: Extremity Injury, Lower Stated complaint: LEFT HIP PAIN S/P SURGERY Time Seen by Provider: 05/10/23 09:36 History of Present Illness: 77-year-old female presents to the emerg ency department from the rehabilitation center via EMS, with complaints of left hip pain. She states she was being assisted and placed on the bedside commode at the [facility] when staff heard a sudden pop and the patient had immediate 10 out of 10 left hip pain. [facility] staff became concerned for a reinjured left hip called EMS and requested transport to the emergency department. Patient states that she was discharged yesterday from the hospital after having a left hip revision surgery. Patient does have a postsurgical scar that is well-approximated with surgical daryl and a dressing over the site. The site does appear to be well-approximated and without obvious signs of infection. The patient's left lower extremity is internally rotated and slightly shortened concerning for dislocation of the left prosthesis/hip. Review of Systems General: Reports: 10 or more systems reviewed and unremarkable except in HPI and below Musc: Reports: extremity pain, joint pain and deformity [facility] PFSH: Medical History Fall as cause of accidental injury at home as place of occurrence Chronic anticoagulation Pacemaker Chronic atrial fibrillation Patient has history of intermittent atrial fibrillation. History of common carotid artery stent placement Clinically stable Arthritis, lumbar spine Chronic lumbar radiculopathy Spinal stenosis, lumbar region without neurogenic claudication Encounter for long-term opiate analgesic use Depression Hypercholesterolemia Hypothyroidism Hypertension Atrial fibrillation Surgical History History of left hip hemiarthroplasty Date of procedure: March 30, 2023. Surgeon: Dr. Leisa Arzola MD. Pre-op diagnosis: Left subcapital hip fracture, impacted and slightly angulated. Post-op diagnosis: Left subcapital hip fracture, impacted and slightly angulated Procedure done: Left bipolar hip arthroplasty Implants: The Maria Elena total hip system with a size 49 mm universal head bipolar component with 28 mm inner diameter and a Gravelly 28 mm outer diameter +4 mm offset V40 LFIT Femoral head, and a size 6 Accolade II 127? neck angle hip stem History of back surgery History of permanent cardiac pacemaker placement Aortic valve replaced 2000. Mechanical H/O section History of appendectomy History of carpal tunnel surgery of right wrist History of carpal tunnel surgery of left wrist H/O aortic valve replacement History of bilateral carotid endarterectomy Family History Mother Dementia Father CAD (coronary artery disease) Denies family history of Diabetes Clotting disorder Chronic kidney disease (CKD) Suicide Anesthesia complication Bleeding disorder Lung disease Cancer Stroke Social History Smoking and tobacco/nicotine status: current every day tobacco/nicotine user Second hand smoke exposure: No Alcohol intake: never Substance/Drug Use: never Lives independently: Yes Household members: significant other Physical Exam Narrative: EXAM NARRATIVE: Constitutional: the patient appears well nourished and with normal development. Vital signs reviewed as documented. At her baseline per family members who are present at bedside. Obvious acute pain at present. HENMT: Normocephalic, atraumatic. External ears normal appearance without drainage. Nose without drainage, normal appearance. Mucus membranes moist. Neck is supple, No jugular venous distension, trachea is midline, no appreciable carotid bruits. No lymphadenopathy. No meningeal signs. Flexion, extension and lateral rotation is without pain. Eyes: Pupils are equal, round, reactive to light and accommodation. No scleral icterus. Extra-ocular movement are intact. Thorax is symmetrical and with equal rise and fall with respirations. Resp: Lungs are clear to auscultation. No wheezes, rales, crackles or ronchi at present. Cardio: Regular rate and rhythm. Positive S1, S2. No appreciable murmurs, rubs or gallops. GI: Abdominal exam reveals normal bowel sounds to all quadrants. No organomegaly. No obvious palpable masses noted. No hepatomegally appreciated. Soft, non-tender to palpation. Extremity: Extremities with 1+ bilateral lower extremity pitting edema. Both femoral and pedal pulses are 2+ and equal bilaterally and confirmed with palpation and bedside Doppler. Patient is unable to move the left lower extremity without significant pain, the remainder of the extremities she moves well and sensation is intact all extremities. The left lower extremity is internally rotated and shortened. Neuro: Alert and oriented x3, person, place and situation. Cranial nerves II through XII are grossly intact, there is no focal neurological deficits that I can appreciate at present. Motor strength in the upper and lower extremities are equal and bilateral 5/5. Psych: Cooperative, calm, normal thought process, appropriate judgment. Skin: No lesions, rashes. No gross abnormalities noted. Back: Symmetrical, no obvious deformity, No CVA tenderness Course Vital Signs: Vital signs: Vital Signs Temperature 98.2 F 05/10/23 09:38 Pulse Rate 130 H 05/10/23 15:30 Respiratory Rate 27 H 05/10/23 13:35 Blood Pressure 144/89 05/10/23 15:30 Pulse Oximetry 100 05/10/23 15:30 Oxygen Delivery Me thod Nasal Cannula 05/10/23 15:30 Oxygen Flow Rate 2 05/10/23 15:30 MDM - Extremity (Nontraumatic) Medical Decision Making 77-year-old female postop day 5 of a left hemiarthroplasty revision and post discharge day 1 presents via EMS personnel with complaints of shortening and inability to stand secondary to acute postoperative dislocation at the long-term care facility. I did obtain radiographic examination and contacted the on-call orthopedic physician Dr. Ramsey and discussed the radiographic findings to include possible new fracture as well as the posterior dislocation I reviewed the medical record as well as the radiographic examination with Dr. Ramsey and she requested that I provide conscious sedation and closed reduction of the hip and to place the patient in a left knee immobilizer as well as a postoperative hip foam wedge and that it remain in place at the time of discharge. #1 PROCEDURE NOTE -closed hip reduction: LEFT Informed consent obtained, after risks, complications and benefits explained and patient verbalized understanding of all information provided as related to the procedure. Time out completed per department/hospital policy. Verified correct patient, side, procedure, This patient underwent a closed left hip reduction. Utilizing procedural sedation, I made the patient comfortable and then used gentle traction as well as abduction of the left lower extremity and counter traction, which then allow the left hip to easily be reduced back into place. Before and after the procedure the distal neurocirculatory status remained intact. The patient was placed in a knee immobilizer and a postoperative foam wedge for comfort protective measures to assist in preventing reinjury and dislocation of the hip. There is evidence of fracture noted on the pre-procedure xray. Post-procedure xray demonstrates successful reduction. Patient was given instructions about keeping the extremity in the knee immobilizer and with the foam wedge in place. The patient and support person at bedside were advised of the appropriate Orthopedic follow-up and the need for follow-up with their primary care physician and their Orthopedic surgeon. #2 PROCEDURE: PROCEDURAL SEDATION The risks and benefits of procedural sedation, as well as other alternatives were explained to the patient and/or guardian. The reason was to alleviate the patient's pain during the procedure. Some of the potential adverse reactions discussed were apnea ( stop breathing ), allergic reaction, vomiting, hypotension, and even possibly . Other possible alternatives were discussed and then informed consent was then obtained. The patient was made NPO, and has not recently had any large meals. The patient was placed on a monitor as well as end-tidal CO2 monitor, oxygen via nasal cannula. The vital signs are stable prior to the procedure. Prior to the start of the procedure the nurse and I performed a TIME OUT. We ensured that all the necessary equipment, including crash cart, defibrillator, airway box, and suction were readily available. Once we were agreeable to proceeding, I then gave the patient 75 mg of IV prop ofol and 2 mg of IV Versed. I continued to closely watch the patient's pulse oximeter, end-tidal CO2 monitor, vital signs, and monitor technician for any abnormalities. The patient appeared to have adequate sedation and underwent the procedure well. After which, the patient was observed, to ensure that the patient woke up fully, and was back to baseline. The intra-service time for this procedure was 20 minutes. Medical Records I reviewed the patient's medical records. Lab Data Radiology Impressions Hip/Pelvis X-Ray 05/10/23 13:29 IMPRESSION: As above. All radiology interpretation(s) finalized by discharge Discharge Plan Discharge Patient Disposition: Home Clinical Impression: Acute postoperative pain of left hip Hip dislocation, left Qualifiers: Encounter type: initial encounter Qualified Code(s): S73.005A - Unspecified dislocation of left hip, initial encounter Condition: Stable Prescriptions: No Action multivitamin Tablet 1 tab PO DAILY sennosides-docusate sodium 8.6-50 mg tablet 1 tab PO DAILY cyclobenzaprine 10 mg tablet 10 mg PO TID PRN (Reason: muscle spasm) 10 Days Qty: 30 3RF cholecalciferol (vitamin D3) 25 mcg (1,000 unit) capsule 25 mcg PO DAILY metoprolol tartrate 25 mg tablet 37.5 mg PO BID Qty: 270 3RF amlodipine 5 mg tablet 5 mg PO DAILY Qty: 90 2RF clopidogrel [Plavix] 75 mg tablet 75 mg PO DAILY Qty: 90 3RF levothyroxine 200 mcg tablet 200 mcg PO DAILY Qty: 90 3RF spironolactone 25 mg tablet 25 mg PO DAILY Qty: 90 3RF potassium chloride 20 mEq tablet extended release 20 meq PO BID@10,21 Qty: 180 3RF cyanocobalamin (vitamin B-12) 1,000 mcg tablet 2,500 mcg PO DAILY@1000 atorvastatin 40 mg tablet 40 mg PO DAILY donepezil 5 mg tablet 5 mg PO DAILY nitroglycerin [Nitrostat] 0.4 mg Tablet, Sublingual 0.4 mg SUBLINGUAL Q5M PRN (Reason: Chest Pain) Rx Instructions: do not exceed 3 doses per episode warfarin [Jantoven] 3 mg Tablet 3 mg PO DAILY@1400 30 Days Qty: 30 0RF furosemide 40 mg tablet 40 mg PO BID Qty: 180 3RF Discharge Orders: Discharge ED (Routine); Ordered 05/10/23 Ordered By: Maurisio Simons Referrals: Edward Balderas DO [Physician] - Ruy Palacio MD [Primary Care Provider] - Discharge Diet: Usual diet Discharge Activity: Limit activity as instructed Patient Instructions: Opioid Safety, Pain Management Activity Restrictions/Additional Instructions: Activity Restrictions/Additional Instructions: Thank you for choosing [facility] for your healthcare needs today. Please realize that you were seen in the Emergency Department and that we are providing you with an emergency medical screening exam and this may not be a complete and all inclusive of all the testing and or medical work-up that you may need to determine your ailment or severity of your illness. It is very important that you follow-up as instructed with your Primary care provider or Specialist for additional evaluation and to discuss your medical treatment plan. You may return to the Emergency Department should you have concerns or if your condition changes or worsens in any way. It is extremely important that the knee immobilizer and foam postoperative hip wedge stay in place and utilized until cleared by the orthopedic physician. Hip flexion is not to exceed approximately 75% and is absolutely not to be at 90 degrees. The Juarez catheter has been left in place at the time of discharge from the emergency department and should remain in place for the next 2 days. The Juarez catheter may be discontinued and removed in 2 days and is to have a 10 cc syringe applied to the balloon port of the Juarez catheter before removing the catheter. If there is any question regarding this procedure please contact the emergency department and speak to a registered nurse to receive detailed instructions for discontinuing the Juarez catheter. Coding Level of Care Code ED Sash Finisher for Giovani Mendosa
--- NOTE | 2023-05-10 12:25 | PC.NURSE ---
ASSUMED CARE OF PATIENT AT 1215.
[2023-05-10] MEDS: sodium chloride 0.9% 1,000 ML 999 ML IV (12:33)
[2023-05-10] MEDS: propofol 10 mg/mL SDV 20 mL 200 MG IVP (13:22)
[2023-05-10] MEDS: midazolam 1 mg/mL INJ 2 mL 2 MG IVP (13:23)
--- NOTE | 2023-05-10 13:29 | XRR_ITS ---
PROCEDURE INFORMATION: Exam: XR Left Hip Exam date and time: 05/10/2023 1:36 PM Age: 77 years old Clinical indication: Other: Post reduction; Prior surgery; Surgery date: 3-7 days post-operative; Surgery type: Lt hip TECHNIQUE: Imaging protocol: Radiologic exam of the left hip. Views: 2 or 3 views hip with pelvis when performed. COMPARISON: CR (PELVIS, ) 05/10/2023 10:38 AM FINDINGS: Bones/joints: Successful reduction. Increased displacement of the large fracture fragment. Soft tissues: No unexpected findings. XR/XR hip LT 2-3V wo/w pel* [id number] IMPRESSION: As above.
--- NOTE | 2023-05-10 13:45 | PC.NURSE ---
PROPOFOL AND VERSED ADMINISTERED BY DR. ULLOA.
--- NOTE | 2023-05-10 18:50 | PC.NURSE ---
Assumed care of patient from Elina BARFIELD at this time.
--- NOTE | 2023-05-10 18:51 | PC.NURSE ---
This nurse was informed from [facility] nurse, Elina BARFIELD, that report was called back to the alf and daughter of patient was also aware of care and that patient was waiting for ride back to [place].
== END 2023-05-10 19:38 | disposition home or self-care (01) ==
PROVIDERS: Emergency Provider Internal Medicine; PCP Family Medicine
DX: T84.021A Dislocation of internal left hip prosthesis, initial encounter (principal); G89.18 Other acute postprocedural pain; Z79.01 Long term (current) use of anticoagulants; Z79.02 Long term (current) use of antithrombotics/antiplatelets; Z72.0 Tobacco use; Z95.0 Presence of cardiac pacemaker; I10 Essential (primary) hypertension; X58.XXXA Exposure to other specified factors, initial encounter
CPT/HCPCS: 27265; 73502; 73522; 96360; 96361; 99152; 99285; J2250; J2704; J7030

== ENCOUNTER → 2023-05-15 14:59 | Outpatient (BNVA) | payer MEDICARE, MEDICAID, SELFPAY | PROVIDERS: PCP Family Medicine; Visit Provider Orthopaedic Surgery | DX: S73.005D Unspecified dislocation of left hip, subsequent encounter (principal); X58.XXXD Exposure to other specified factors, subsequent encounter | CPT/HCPCS: 99024 ==

== ENCOUNTER → 2023-05-23 12:54 | Outpatient (BNVA) | payer MEDICARE, MEDICAID, SELFPAY | PROVIDERS: PCP Family Medicine; Visit Provider Orthopaedic Surgery | DX: S72.012D Unspecified intracapsular fracture of left femur, subsequent encounter for closed fracture with routine healing (principal); M97.02XD Periprosthetic fracture around internal prosthetic left hip joint, subsequent encounter; X58.XXXD Exposure to other specified factors, subsequent encounter; Z96.642 Presence of left artificial hip joint | CPT/HCPCS: 99024 ==

== ENCOUNTER → 2023-06-16 12:22 | Outpatient (BNVA) | payer MEDICARE, MEDICAID, SELFPAY | PROVIDERS: PCP Family Medicine; Visit Provider Family Medicine | DX: E03.9 Hypothyroidism, unspecified (principal) | CPT/HCPCS: 84439; 84443; 84481 ==

== ENCOUNTER 2023-07-01 13:00 | Outpatient (CLI) | payer MEDICARE, MEDICAID, SELFPAY ==
--- NOTE | 2023-07-01 14:00 | XR_ITS ---
WS: [id number] SCREENING DEXA SCAN [facility] CLINICAL INFORMATION: Hip fracture COMPARISON: None. FINDINGS: The L1-L4 bone mineral density measures 1.01. This corresponds to a T score score of -1.6 and Z score of 0.2. Left forearm bone mineral density measures 0.50. This corresponds to a T score of -4.3 and Z score of -1.8. Right femoral neck bone mineral density measures 0.545. This corresponds to a T score of -3.7 of and Z score of -1.8. IMPRESSION: Osteopenia lumbar spine. Osteoporosis RIGHT femoral neck. Osteoporosis LEFT forearm. Patient's FRAX calculated 10 year probability for major osteoporotic fracture is 35.9% and osteoporot ic hip fracture is 19.5%.
== END 2023-07-01 13:01 | disposition home or self-care (01) ==
LOC: RAD 13:00
PROVIDERS: PCP Family Medicine; Visit Provider Family Medicine
DX: Z13.820 Encounter for screening for osteoporosis (principal); Z78.0 Asymptomatic menopausal state; M85.88 Other specified disorders of bone density and structure, other site; M81.0 Age-related osteoporosis without current pathological fracture; Z96.642 Presence of left artificial hip joint; S72.002D Fracture of unspecified part of neck of left femur, subsequent encounter for closed fracture with routine healing; X58.XXXD Exposure to other specified factors, subsequent encounter
CPT/HCPCS: 73502; 77080; 99024

== ENCOUNTER → 2023-07-29 10:18 | Outpatient (BNVA) | payer MEDICARE, MEDICAID, SELFPAY | PROVIDERS: PCP Family Medicine; Visit Provider Orthopaedic Surgery | DX: Z96.642 Presence of left artificial hip joint (principal) | CPT/HCPCS: 73502; 99024 ==

== ENCOUNTER → 2023-09-30 09:55 | Outpatient (BNVA) | payer MEDICARE, MEDICAID, SELFPAY | PROVIDERS: PCP Family Medicine; Visit Provider Clinical Nurse Specialist Adult Health | DX: R53.83 Other fatigue (principal); E03.9 Hypothyroidism, unspecified | CPT/HCPCS: 80053; 81000; 84443; 85025; 86140; 87086 ==

== ENCOUNTER 2023-11-18 06:51 | Outpatient (CLI) | payer MEDICARE, MEDICAID, SELFPAY ==
--- NOTE | 2023-11-18 07:00 | USCV_ITS ---
Kiersten Youette Age: 78 Gender: F : 1945 Exam Date: 11/18/2023 06:56 Ordering Phys: Phan Steward MD ([email or web address]) Technologist: Exam [place] [facility] [place] Indication: cca disease Risk Factors: Previous Vascular Surgery: Right Brachial BP: / Left Brachial BP: / Right Left Velocity (cm/s) Spectral Plaque Velocity (cm/s) Spectral Plaque Syst/Diast Broadening Syst/Diast Broadening 60.60/ 21.80 Prox CCA 54.10 / 24.60 47.10/ 16.80 Mid CCA 51.70 / 22.10 39.40/ 16.70 Distal CCA 46.40 / 19.10 141.70/49.50 Prox ICA 247.40/ 62.40 133.70/33.20 Mid ICA 154.10/ 29.70 119.60/52.40 Distal ICA 89.40 / 31.40 53.90 ECA 200.70 3.60 ICA/CCA 5.30 Antegrade Vertebral Antegrade 14.30/ 6.50 cm/s 73.50/ 22.10 cm/s Bi Subclavian Bi 69.40 80.20 FINDINGS Comparison:. 04/20/21 Extensive, near contiguous plaque right carotid artery with increasing velocity since the prior exam. right carotid stent is noted. Abnormal waveform right vertebral artery. Loss of triphasic right subclavian artery. Marked progression of velocity left carotid artery and plaque. There does appear to be a stent in the left ICA. Post stent stenosis. CONCLUSIONS Bilateral carotid stents are patent. Increase in velocity, plaque and stenosis since 2021. No evidence of significant carotid artery stenosis. Left ICA stenosis 70-99%. Right ICA stenosis 50-69%. CTA carotid arteries would be of benefit to further characterize disease extent. Dr. Prema Reyes DO (Electronically Signed) Final Date: 19 November 2023 12:46 S
== END 2023-11-18 06:52 | disposition home or self-care (01) ==
LOC: RAD 06:51
PROVIDERS: PCP Family Medicine; Visit Provider Internal Medicine Cardiovascular Disease
DX: I65.23 Occlusion and stenosis of bilateral carotid arteries (principal)
CPT/HCPCS: 93880; 99214

== ENCOUNTER 2023-11-28 10:48 | Outpatient (CLI) | payer MEDICARE, MEDICAID, SELFPAY ==
[2023-11-28 11:15] LABS: INR 3.35 (0.83-1.21); Prothrombin Time (Patient) 35.2 Seconds (12.0-15.1)
== END 2023-11-28 10:49 | disposition home or self-care (01) ==
LOC: LAB 10:52
PROVIDERS: PCP Family Medicine; Visit Provider Internal Medicine Cardiovascular Disease
DX: Z95.2 Presence of prosthetic heart valve (principal)
CPT/HCPCS: 36415; 85610

== ENCOUNTER 2023-12-29 14:41 | Outpatient (CLI) | payer MEDICARE, SELFPAY ==
--- NOTE | 2023-12-29 16:13 | XRR_ITS ---
PROCEDURE INFORMATION: Exam: XR Left Hand Exam date and time: 12/29/2023 4:16 PM Age: 78 years old Clinical indication: Injury or trauma; Fall; Blunt trauma (contusions or hematomas); Injury details: PT fell a few weeks ago with pain in the mid/lower back. PT has been seen for compression fractures before. PT C/O left hip pain and left hand pain as well. PT was able to stand on injured leg for short periods of time. ; Additional info: Bruising left hand after fall onto hand TECHNIQUE: Imaging protocol: Radiologic exam of the left hand. Views: 3 or more views. COMPARISON: No relevant prior studies available. FINDINGS: Bones/joints: Mildly displaced fracture in the base of the 5th metacarpal. Degenerative changes in the 1st carpometacarpal joint. Soft tissues: Normal. Vasculature: Arterial calcifications. XR/XR hand LT min 3V* [id number] IMPRESSION: Mildly displaced fracture in the base of the 5th metacarpal.
--- NOTE | 2023-12-29 16:13 | XRR_ITS ---
PROCEDURE INFORMATION: Exam: XR Thoracic Spine Exam date and time: 12/29/2023 4:16 PM Age: 78 years old Clinical indication: Injury or trauma; Fall; Blunt trauma (contusions or hematomas); Injury details: PT fell a few weeks ago with pain in the mid/lower back. PT has been seen for compression fractures before. PT C/O left hip pain and left hand pain as well. PT was able to stand on injured leg for short periods of time. Prior surgery; Surgery date: 6+ months; Surgery type: Left hip, open heart, pacer; Additional info: Back pain after a fall TECHNIQUE: Imaging protocol: Radiologic exam of the thoracic spine. Views: 3 views. COMPARISON: CR XR thoracic spine 3V* [id number] 01/08/2023 1:03 PM FINDINGS: Tubes, catheters and devices: Intact dual lead left subclavian pacemaker. Heart valve prosthesis. Bones/joints: Sternotomy changes. Stable severe T8 compression fracture. Newly acquired moderate T11 compression fracture. Diffuse demineralization of the bones. Mild degenerative endplate changes. Soft tissues: Unremarkable. Heart/Mediastinum: Mild cardiomegaly. XR/XR thoracic spine 3V* [id number] IMPRESSION: 1. Newly acquired moderate T11 compression fracture.
--- NOTE | 2023-12-29 16:13 | XRR_ITS ---
PROCEDURE INFORMATION: Exam: XR Left Hip Exam date and time: 12/29/2023 4:16 PM Age: 78 years old Clinical indication: Injury or trauma; Fall; Blunt trauma (contusions or hematomas); Injury details: PT fell a few weeks ago with pain in the mid/lower back. PT has been seen for compression fractures before. PT C/O left hip pain and left hand pain as well. PT was able to stand on injured leg for short periods of time. Prior surgery; Surgery date: 6+ months; Surgery type: Left hip, open heart, pacer TECHNIQUE: Imaging protocol: Radiologic exam of the left hip. Views: 2 or 3 views hip with pelvis when performed. COMPARISON: CR XR hip LT 2-3V wo/w pel* [id number] 10/28/2023 11:16 AM FINDINGS: Bones/joints: Stable left hip arthroplasty. No fracture or dislocation. Stable heterotopic bone formation inferior and medial to the left hip joint. Degenerative lumbar spine. Soft tissues: Unremarkable. XR/XR hip LT 2-3V wo/w pel* [id number] IMPRESSION: No acute findings.
--- NOTE | 2023-12-29 16:13 | XRR_ITS ---
PROCEDURE INFORMATION: Exam: XR Lumbosacral Spine Exam date and time: 12/29/2023 4:16 PM Age: 78 years old Clinical indication: Low back pain; Prior surgery; Surgery date: 6+ months; Surgery type: Left hip, open heart, pacer; Patient HX: PT fell a few weeks ago with pain in the mid/lower back. PT has been seen for compression fractures before. PT C/O left hip pain and left hand pain as well. PT was able to stand on injured leg for short periods of time. ; Additional info: Low back pain, bilateral TECHNIQUE: Imaging protocol: Radiologic exam of the lumbosacral spine. Views: 2 or 3 views. COMPARISON: CR XR lumbar spine 2-3V* [id number] 01/08/2023 1:03 PM FINDINGS: Bones/joints: Left hip arthroplasty changes. Mild leftward lumbar curvature. Moderate T11 compression fracture. No lumbar fracture. Stable severe disc space narrowing at L4-L5 with anterior subluxation. Mild degenerative endplate changes at the other levels. Soft tissues: Unremarkable. Vasculature: Arterial calcifications. XR/XR lumbar spine 2-3V* [id number] IMPRESSION: 1. No lumbar fracture. 2. Newly acquired moderate T11 compression fracture.
== END 2023-12-29 14:42 | disposition home or self-care (01) ==
LOC: RAD 14:45
PROVIDERS: PCP Family Medicine; Visit Provider Clinical Nurse Specialist Adult Health
DX: S62.317A Displaced fracture of base of fifth metacarpal bone, left hand, initial encounter for closed fracture (principal); S22.080A Wedge compression fracture of T11-T12 vertebra, initial encounter for closed fracture; M48.061 Spinal stenosis, lumbar region without neurogenic claudication; W19.XXXA Unspecified fall, initial encounter; Y92.009 Unspecified place in unspecified non-institutional (private) residence as the place of occurrence of the external cause; M25.552 Pain in left hip; M79.642 Pain in left hand; Z96.642 Presence of left artificial hip joint
CPT/HCPCS: 72072; 72100; 73130; 73502

== ENCOUNTER → 2024-03-03 13:24 | Outpatient (BNVA) | payer MEDICARE, SELFPAY | PROVIDERS: PCP Family Medicine; Visit Provider Family Medicine | DX: S22.000A Wedge compression fracture of unspecified thoracic vertebra, initial encounter for closed fracture (principal); X58.XXXA Exposure to other specified factors, initial encounter | CPT/HCPCS: 81000 ==

== ENCOUNTER 2024-05-03 14:03 | Outpatient (CLI) | payer MEDICARE, MEDICAID, SELFPAY ==
--- NOTE | 2024-05-03 14:00 | CT_ITS ---
WS: [id number] CT ANGIOGRAM CAROTID ARTERIES HISTORY: bilat carotid stenosis, bilateral bilateral endarterectomy. TECHNIQUE: CT angiogram is performed of the carotid arteries. During arterial injection imaging is ob tained from the skull base to the aortic arch in 1.25 mm imaging. Coronal and sagittal reformats are submitted, MIP imaging also reviewed. Additional multiplanar reformats of the carotid arteries are roberts bmitted. NASCET criteria utilized. All CT scans at [facility] use at least one of these dose optimization techniques: automated exposure control; mA and/or kV adjustment per patient size (includ es targeted exams where dose is matched to clinical indication); or iterative reconstruction. CONTRAST: Omnipaque 350; 100 mL IV. DLP: 174.34 mGy.cm COMPARISON: 06/06/2020,, carotid ultrasound 11/18/2023 Right carotid: Common carotid artery: Normally arises from the innominate. Calcified plaque scattered throughout the common carotid artery. Internal carotid artery: RIGHT ICA stent is patent but there is a focal narrowing estimated at 72% in the mid stent. External carotid artery: May be occluded. Left carotid: Common carotid artery: Calcified plaque at the origin from the arch. Intimal thickening and calcified plaque throughout the common carotid artery. Internal carotid artery: Patent LEFT ICA stent. Focal short segment calcified plaque in the distal th ird of the stent with stenosis estimated at 81%. External carotid artery: May be occluded. Right vertebral artery: Small caliber and diseased RIGHT vertebral artery. Poor visualization of the proximal RIGHT vertebral artery. Left vertebral artery: Tortuous LEFT vertebral artery with scattered plaque. Moderate stenosis proxim ally. Subclavian arteries: Calcified plaque in the subclavian arteries but no high-grade stenosis. Upper thorax: Emphysema. Atherosclerotic plaque aortic arch. Thyroid gland: Not visualized. Osseous structures: Cervical spondylosis. Skull base: Mild atherosclerotic plaque continues into the carotid cavernous arteries. CT/CT angio neck [id number] IMPRESSION: 1. Bilateral cervical ICA stents. 2. RIGHT ICA stent with a short segment stenosis in the distal third, 72%. Sim ilar to the prior study from 06/06/2020. 3. LEFT ICA stent with a short segment stenosis and calcified plaque at 81%. M ild progression of stenosis. 4. Diffuse small caliber RIGHT vertebral artery with progression of atheroscle rotic disease since 2020. 5. Moderate stenosis proximal LEFT vertebral artery similar to the prior study .
[2024-05-03 15:01] LABS: Blood Urea Nitrogen 23 mg/dL (8-23)
[2024-05-03] MEDS: iohexol 350 mg/mL 500 mL Btl (per mL) IV (15:20)
== END 2024-05-03 14:04 | disposition home or self-care (01) ==
PROVIDERS: PCP Family Medicine; Visit Provider Internal Medicine Cardiovascular Disease
DX: I65.23 Occlusion and stenosis of bilateral carotid arteries (principal); I67.2 Cerebral atherosclerosis; I65.02 Occlusion and stenosis of left vertebral artery; R93.89 Abnormal findings on diagnostic imaging of other specified body structures; I77.1 Stricture of artery; J43.9 Emphysema, unspecified; I70.0 Atherosclerosis of aorta; M47.892 Other spondylosis, cervical region
CPT/HCPCS: 70498; 82565; 84520

== ENCOUNTER → 2024-05-24 09:30 | Outpatient (BNVA) | payer MEDICARE, MEDICAID, SELFPAY | PROVIDERS: PCP Family Medicine; Visit Provider Nurse Practitioner Family | DX: I48.20 Chronic atrial fibrillation, unspecified (principal); I10 Essential (primary) hypertension; Z95.0 Presence of cardiac pacemaker; Z79.01 Long term (current) use of anticoagulants; Z95.2 Presence of prosthetic heart valve; Z98.890 Other specified postprocedural states; Z95.828 Presence of other vascular implants and grafts | CPT/HCPCS: 99214 ==

== ENCOUNTER 2024-08-30 17:50 | Emergency (ER) | payer MEDICARE, MEDICAID, SELFPAY ==
[2024-08-30 17:55] VITALS: BP 95/53; PULSE 66; TEMP 36.7; O2SAT 98; BMI 21.6
--- NOTE | 2024-08-30 18:01 | ECG_ITS ---
[employer] Test Date: 2024-08-30 Pat Name: Jennifer You Department: Room: Gender: Female Processing Technician: : 1945 Requested By: Alexandra Parsons Order Number: [id number] Yarelis MD: Phan Steward M.D. Measurements Intervals [place] Rate: 68 P: 0 DE: 0 QRS: -17 QRSD: 102 T: -10 QT: 391 QTc: 417 Interpretive Statements ATRIAL FIBRILLATION, with demand V pacing LOW QRS VOLTAGE IN PRECORDIAL LEADS [QRS DEFLECTION < 1.0 mV IN CHEST LEADS] PATTERN CONSISTENT WITH PULMONARY DISEASE INCOMPLETE RIGHT BUNDLE BRANCH BLOCK [90+ ms QRS DURATION, TERMINAL R IN V1/V2, 40+ ms S IN I/aVL/V4/V5/V6] SEPTAL MYOCARDIAL INFARCTION , PROBABLY OLD [40+ ms Q WAVE IN V1/V2] INTERPRETATION BASED ON A DEFAULT AGE OF 40 YEARS Compared to ECG 05/03/2023 07:44:44 Low QRS voltage now present Incomplete right bundle-branch block now present Myocardial infarct finding still present Electronically Signed On 08-31-2024 06:39:10 CDT by Phan Steward M.D. [email or web address]
[2024-08-30 19:28] VITALS: BP 124/55; PULSE 72; RESP 21; O2SAT 96
--- NOTE | 2024-08-30 19:38 | ECG_ITS ---
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 Measurements Intervals [place] Rate: 77 P: 0 AR: 0 QRS: -15 QRSD: 102 T: 6 QT: 366 QTc: 416 Interpretive Statements ATRIAL FIBRILLATION LOW QRS VOLTAGE IN PRECORDIAL LEADS [QRS DEFLECTION < 1.0 mV IN CHEST LEADS] INCOMPLETE RIGHT BUNDLE BRANCH BLOCK [90+ ms QRS DURATION, TERMINAL R IN V1/V2, 40+ ms S IN I/aVL/V4/V5/V6] SEPTAL MYOCARDIAL INFARCTION , PROBABLY OLD [40+ ms Q WAVE IN V1/V2] Compared to ECG 08/30/2024 18:01:32 No significant changes Electronically Signed On 08-31-2024 06:19:45 CDT by Phan Steward M.D. [email or web address]
--- NOTE | 2024-08-30 19:38 | XRR_ITS ---
PROCEDURE INFORMATION: Exam: XR Chest Exam date and time: 08/30/2024 7:44 PM Age: 78 years old Clinical indication: Other: Weakness; Prior surgery; Surgery date: 6+ months; Surgery type: Aortic valve pacer; Additional info: Weakness, number show where TECHNIQUE: Imaging protocol: Radiologic exam of the chest. Views: 1 view. COMPARISON: CR XR chest 1V portable [id number] 05/03/2023 7:37 AM FINDINGS: Tubes, catheters and devices: Stable left-sided pacer device. Lungs: Unremarkable. No consolidation. Pleural spaces: Unremarkable. No pleural effusion. No pneumothorax. Heart/Mediastinum: Cardiomegaly. Vasculature: Artificial aortic valve . Bones/joints: Changes of prior sternotomy. XR/XR chest 1V portable [id number] IMPRESSION: No acute cardiopulmonary findings.
[2024-08-30 20:00] VITALS: BP 139/79; PULSE 76; RESP 12
[2024-08-30 20:07] LABS: Basophils % 0.3 %; Eosinophils # 0.2 10^3/uL (0.0-0.8); Eosinophils % 1.6 %; Hematocrit 40.3 % (36-47); Lymphocytes # 1.7 10^3/uL (0.8-4.8); Lymphocytes % 15.7 %; Mean Corpuscular HGB Conc 31.8 g/dL (30-55); Mean Corpuscular Hemoglobin 30.9 pg (27-33); Mean Corpuscular Volume 97.3 fl (85-98); Mean Platelet Volume 9.7 fL (7.4-10.4); Monocytes # 0.8 10^3/uL (0.2-0.9); Monocytes % 7.4 %; Neutrophils # 7.84 10^3/uL (1.8-7.7); Neutrophils % 74.6 %; Nucleated Red Blood Cells % 0 %; Platelet Count 227 10^3/cmm (157-399); Red Blood Count 4.14 10^6/uL (3.85-5.65); Red Cell Distribution Width 12.9 % (12.1-15.1); White Blood Count 10.51 10^3/uL (3.29-11.43)
[2024-08-30 20:21] LABS: Bilirubin Urine Negative (Negative); Blood Urine Negative (Negative); Glucose Urine UA Negative (Normal); Ketones Urine Negative (Negative); Leukocyte Esterase Urine Negative (Negative); Nitrate Urine Negative (Negative); Protein Urine Negative (Negative); Specific Gravity, Urine 1.009 (1.005-1.030); Urine Appearance Clear (CLEAR); Urine Color Yellow (Yellow); Urobilinogen Urine 0.2 mg/dL (Negative)
[2024-08-30 20:23] LABS: Alanine Aminotransferase 12 U/L (0-33); Albumin Level 4.3 g/dL (3.5-5.2); Alkaline Phosphatase 90 U/L (35-105); Anion Gap 16.6 (5-19); Aspartate Amino Transferase 20 U/L (0-32); Blood Urea Nitrogen 23 mg/dL (8-23); Calcium 9.7 mg/dL (8.5-10.5); Carbon Dioxide 23 mmol/L (22-29); Chloride 102 mmol/L (98-107); Creatinine Clr Calc Pharmacy 35.2473; Globulin 2.6 g/dL (1.3-4.6); Glucose 97 mg/dL (65-115); Osmolality Calculated 288 mOsm/kg (285-295); Potassium 4.6 mmol/L (3.5-5.1); Sodium 137 mmol/L (136-145); Total Bilirubin 0.8 mg/dL (0.15-1.2); Total Protein 6.9 g/dL (6.6-8.7); Troponin(5th) Baseline 23 ng/L (0-10)
[2024-08-30 20:25] LABS: Add Urine Microscopic? YES; Bacteria Urine None Seen /hpf; RBC Urine 0-2 /hpf (0-2); Squamous Epithelial Cell Urine 0-5 /hpf (0-5); WBC Urine 0-5 /hpf (0-5)
[2024-08-30 20:29] LABS: Amphetamines Screen Urine Negative (Negative); Barbiturates Screen Urine Negative (Negative); Benzodiazepines Screen Urine Negative (Negative); Cocaine Screen Urine Negative (Negative); Opiate Screen Urine Positive (Negative); PCP Screen Urine Negative (Negative); THC Screen Urine Positive (Negative)
[2024-08-30 21:00] VITALS: BP 155/71; PULSE 86; RESP 13; O2SAT 98
[2024-08-30 21:16] LABS: INR 1.31 (0.8-1.2); Partial Thromboplastin Time 28.1 SECONDS (23.9-36.7)
[2024-08-30 21:52] LABS: Troponin 5 2HR 19.41 ng/L (0-10); Troponin 5 2HR Delta -3.59 ABS# (0-10)
[2024-08-30 22:00] VITALS: BP 168/80; PULSE 89; RESP 23; O2SAT 96
[2024-08-30 22:30] VITALS: BP 148/87; PULSE 95; RESP 25; O2SAT 94
--- NOTE | 2024-08-30 22:41 | W.ED.WEAKNES ---
HPI - Weakness General: Chief complaint: Weakness Stated complaint: low bp Time Seen by Provider: 08/30/24 19:38 History of Present Illness: Jennifer You presents to the ER with complaints of stomach problems and low blood pressure. She reports a 2-month history of daily stomach issues, primarily characterized by pain. The patient also mentions feeling very depressed. The patient's stomach problems have been ongoing for about 2 months, occurring daily. She describes it as pain but does not provide further details about its nature, severity, or any aggravating or alleviating factors. In addition to her gastrointestinal symptoms, Jennifer reports feeling very depressed, though she does not elaborate on the duration or impact of these feelings. Jennifer's current visit appears to be primarily due to an episode of low blood pressure. Her initial blood pressure reading in the ER was 95/53, which later improved to 155/71. The patient takes metoprolol twice daily, typically taking her evening dose around 8 PM. She is also supposed to be on amiodarone for atrial fibrillation, though it's unclear why she is currently not taking this medication. Jennifer also takes furosemide on Mondays, Wednesdays, and Fridays, and had taken it on the morning of her ER visit. The patient reports drinking plenty of water and consuming electrolyte-rich beverages (Gatorade) provided by her caregiver. Despite these efforts, she felt she needed more fluids. It's worth noting that Jennifer had hip-related issues approximately a year ago, though the specifics and current relevance are not detailed in the transcript. Review of Systems General: Reports: 10 or more systems reviewed and unremarkable except in HPI and below PFSH ED PFSH: Medical History Fall as cause of accidental injury at home as place of occurrence Chronic anticoagulation Pacemaker Chronic atrial fibrillation Patient has history of intermittent atrial fibrillation. History of common carotid artery stent placement Clinically stable Arthritis, lumbar spine Chronic lumbar radiculopathy Spinal stenosis, lumbar region without neurogenic claudication Encounter for long-term opiate analgesic use Depression Hypercholesterolemia Hypothyroidism Hypertension Atrial fibrillation Surgical History History of left hip hemiarthroplasty Date of procedure: March 30, 2023. Surgeon: Dr. Leisa Arzola MD. Pre-op diagnosis: Left subcapital hip fracture, impacted and slightly angulated. Post-op diagnosis: Left subcapital hip fracture, impacted and slightly angulated Procedure done: Left bipolar hip arthroplasty Implants: The [place] total hip system with a size 49 mm universal head bipolar component with 28 mm inner diameter and a [place] 28 mm outer diameter +4 mm offset V40 LFIT Femoral head, and a size 6 Accolade II 127? neck angle hip stem History of back surgery History of permanent cardiac pacemaker placement Aortic valve replaced 2000. Mechanical H/O section History of appendectomy History of carpal tunnel surgery of right wrist History of carpal tunnel surgery of left wrist H/O aortic valve replacement History of bilateral carotid endarterectomy Family History Mother Dementia Father CAD (coronary artery disease) Denies family history of Diabetes Clotting disorder Chronic kidney disease (CKD) Suicide Anesthesia complication Bleeding disorder Lung disease Cancer Stroke Social History Smoking and tobacco/nicotine status: never used tobacco/nicotine Second hand smoke exposure: No Alcohol intake: never Substance/Drug Use: never Lives independently: Yes Household members: significant other Physical Exam Const: COMMON NORMALS: no acute distress, patient oriented x3, healthy appearing, alert and well nourished HENMT: COMMON NORMALS: normocephalic HEAD & SCALP: normocephalic Eye: COMMON NORMALS: EOMs intact bilaterally Neck/C-Spine: COMMON NORMALS: full ROM and supple Resp: COMMON NORMALS: normal respiratory effort, No retractions and clear to auscultation bilaterally AUSCULTATION: clear to auscultation bilaterally Cardio: COMMON NORMALS: regular rate, regular rhythm, No gallops present (Cardio) and No murmurs present (Cardio) RATE: regular rate RHYTHM: regular rhythm GI: COMMON NORMALS: Soft to palpation and non-tender PALPATION: Yes Soft to palpation Extremity: GENERAL: Yes normal exam except as noted Neuro: COMMON NORMALS: patient oriented x3 SENSORIUM/ORIENTATION: Yes alert Skin: COMMON NORMALS: no rashes or lesions noted GENERAL SKIN EXAM: no rashes or lesions noted Course Vital Signs: Vital signs: Vital Signs Temperature 98.0 F 08/30/24 17:55 Pulse Rate 96 08/31/24 00:56 Respiratory Rate 18 08/31/24 00:56 Blood Pressure 148/84 08/31/24 00:56 Pulse Oximetry 97 08/31/24 00:56 Oxygen Delivery Me thod Room Air 08/30/24 17:55 MDM - Weakness Medical Decision Making 78-year-old female presents to the emergency department for evaluation of low blood pressure and dizziness. She reports that since being in the emergency department she has not had any weakness or dizziness sensations. Additionally, her blood pressure in the emergency department today has been high and not low. Patient took her blood pressure medicine late today and has had some GI upset decreasing her oral intake. This may be related to her transient low blood pressure at home. Patient's lab was positive for increased creatinine. Encouraged the patient to increase her oral hydration and follow-up with her primary care physician in regards to her blood pressure management. Patient was discharged home in good condition. Lab Data 08/30/24 19:59 08/30/24 19:59 Radiology Impressions Chest X-Ray 08/30/24 19:38 IMPRESSION: No acute cardiopulmonary findings. Laboratory Results WBC 10.51 10^3/uL (3.29-11.43) 08/30/24 19:59 RBC 4.14 10^6/uL (3.85-5.65) 08/30/24 19:59 Hgb 12.80 g/dL (11.27-16.99) 08/30/24 19:59 Hct 40.3 % (36-47) 08/30/24 19:59 MCV 97.3 fl (85-98) 08/30/24 19:59 MCH 30.9 pg (27-33) 08/30/24 19:59 MCHC 31.8 g/dL (30-55) 08/30/24 19:59 RDW 12.9 % (12.1-15.1) 08/30/24 19:59 Plt Count 227 10^3/cmm (157-399) 08/30/24 19:59 MPV 9.7 fL (7.4-10.4) 08/30/24 19:59 Neut % (Auto) 74.6 % 08/30/24 19:59 Lymph % (Auto) 15.7 % 08/30/24 19:59 [place] % (Auto) 7.4 % 08/30/24 19:59 Eos % (Auto) 1.6 % 08/30/24 19:59 Baso % (Auto) 0.3 % 08/30/24 19:59 Neut # (Auto) 7.84 10^3/uL (1.8-7.7) H 08/30/24 19:59 Lymph # (Auto) 1.7 10^3/uL (0.8-4.8) 08/30/24 19:59 [place] # (Auto) 0.8 10^3/uL (0.2-0.9) 08/30/24 19:59 Eos # (Auto) 0.2 10^3/uL (0.0-0.8) 08/30/24 19:59 Baso # (Auto) 0.0 10^3/uL (0.0-0.1) 08/30/24 19:59 Nucleated RBC % (auto) 0 % 08/30/24: Nucleated RBCs # 0.0 /100WBC 08/30/24 19:59 PT 17.10 SECONDS (12.1-14.9) H 08/30/24 20:50 INR 1.31 (0.8-1.2) H 08/30/24 20:50 APTT 28.1 SECONDS (23.9-36.7) 08/30/24 20:50 Sodium 137 mmol/L (136-145) 08/30/24 19:59 Potassium 4.6 mmol/L (3.5-5.1) 08/30/24 19:59 Chloride 102 mmol/L (98-107) 08/30/24 19:59 Carbon Dioxide 23 mmol/L (22-29) 08/30/24 19:59 Anion Gap 16.6 (5-19) 08/30/24 19:59 BUN 23 mg/dL (8-23) 08/30/24 19:59 Creatinine 1.2 mg/dL (0.5-0.9) H 08/30/24 19:59 GFR Calculation Not Reportable 08/30/24 19:59 Glucose 97 mg/dL (65-115) 08/30/24 19:59 Calculated Osmolality 288 mOsm/kg (285-295) 08/30/24 19:59 Calcium 9.7 mg/dL (8.5-10.5) 08/30/24 19:59 Total Bilirubin 0.8 mg/dL (0.15-1.2) 08/30/24 19:59 AST 20 U/L (0-32) 08/30/24 19:59 ALT 12 U/L (0-33) 08/30/24 19:59 Alkaline Phosphatase 90 U/L (35-105) 08/30/24 19:59 Troponin T Baseline 23 ng/L (0-10) H 08/30/24 19:59 Troponin T 120 Minute 19.41 ng/L (0-10) H 08/30/24 21:18 Delta Troponin T -3.59 ABS# (0-10) L 08/30/24 21:18 Total Protein 6.9 g/dL (6.6-8.7) 08/30/24 19: Albumin 4.3 g/dL (3.5-5.2) 08/30/24 19:59 Globulin 2.6 g/dL (1.3-4.6) 08/30/24 19: Urine Color Yellow (Yellow) 08/30/24 20:15 Urine Appearance Clear (CLEAR) 08/30/24 20:15 Urine pH 5.0 (5-7) 08/30/24 20:15 Ur Specific [place] 1.009 (1.005-1.030) 08/30/24 20:15 Urine Protein Negative (Negative) 08/30/24 20:15 Urine Glucose (UA) Negative (Normal) 08/30/24 20:15 Urine Ketones Negative (Negative) 08/30/24 20:15 Urine Blood Negative (Negative) 08/30/24 20:15 Urine Nitrate Negative (Negative) 08/30/24 20:15 Urine Bilirubin Negative (Negative) 08/30/24 20:15 Urine Urobilinogen 0.2 mg/dL (Negative) 08/30/24 20:15 Ur Leukocyte Esterase Negative (Negative) 08/30/24 20:15 Urine RBC 0-2 /hpf (0-2) 08/30/24 20:15 Urine WBC 0-5 /hpf (0-5) 08/30/24 20:15 Ur Squamous Epith Cells 0-5 /hpf (0-5) 08/30/24 20:15 Amorphous Sediment Not Reportable 08/30/24 20:15 Urine Bacteria None seen /hpf (NONE) 08/30/24 20:15 Hyaline Casts 3.30 /lpf 08/30/24 20:15 Urine Opiates Screen Positive ng/mL (Negative) H 08/30/24 20:15 Ur Barbiturates Screen Negative ng/mL (Negative) 08/30/24 20:15 Ur Phencyclidine Scrn Negative ng/mL (Negative) 08/30/24 20:15 Ur Amphetamines Screen Negative ng/mL (Negative) 08/30/24 20:15 U Benzodiazepines Scrn Negative ng/mL (Negative) 08/30/24 20:15 Urine Cocaine Screen Negative ng/mL (Negative) 08/30/24 20:15 U Marijuana (THC) Screen Positive ng/mL (Negative) H 08/30/24 20:15 All radiology interpretation(s) finalized by discharge Discharge Plan Discharge Patient Disposition: Home Clinical Impression: Weakness, Acute hypotension Condition: Stable Prescriptions: No Action multivitamin Tablet 1 tab PO DAILY sennosides-docusate sodium 8.6-50 mg tablet 1 tab PO DAILY cholecalciferol (vitamin D3) 25 mcg (1,000 unit) capsule 25 mcg PO DAILY furosemide 40 mg tablet 40 mg PO DAILY amlodipine 2.5 mg tablet 2.5 mg PO DAILY PRN (Reason: Systolic BP >150) Qty: 30 0RF warfarin 3 mg tablet See Rx Instructions .ROUTE .COMPLEX Qty: 30 6RF Protocol: Dose Management Condition: Friday Dose/Route: 3 mg Instruction: 1 x 3 mg tablet Condition: Friday Dose/Route: 3 mg Instruction: 1 x 3 mg tablet Condition: Friday Dose/Route: 3 mg Instruction: 1 x 3 mg tablet Condition: Friday Dose/Route: 2 mg Instruction: 0.5 x 4 mg tablets Condition: Dose/Route: 3 mg Instruction: 1 x 3 mg tablet Condition: Friday Dose/Route: 2 mg Instruction: 0.5 x 4 mg tablets Condition: Friday Dose/Route: 3 mg Instruction: 1 x 3 mg tablet Protocol Text: Adjustment Start Date: 08/19/24 INR Value: 3.0 INR Date: 08/18/24 Recheck Date: 08/26/24 Dose Instruction: TAKE ONE TABLET BY MOUTH ON mondays, wednesdays, and fridays Rx Instructions: TAKE ONE TABLET BY MOUTH ON mondays, wednesdays, and fridays warfarin 2.5 mg tablet See Rx Instructions .ROUTE .COMPLEX Qty: 30 6RF Protocol: Dose Management Condition: Friday Dose/Route: 3 mg Instruction: 1 x 3 mg tablet Condition: Friday Dose/Route: 3 mg Instruction: 1 x 3 mg tablet Condition: Friday Dose/Route: 3 mg Instruction: 1 x 3 mg tablet Condition: Friday Dose/Route: 2 mg Instruction: 0.5 x 4 mg tablets Condition: Dose/Route: 3 mg Instruction: 1 x 3 mg tablet Condition: Friday Dose/Route: 2 mg Instruction: 0.5 x 4 mg tablets Condition: Friday Dose/Route: 3 mg Instruction: 1 x 3 mg tablet Protocol Text: Adjustment Start Date: 08/19/24 INR Value: 3.0 INR Date: 08/18/24 Recheck Date: 08/26/24 Dose Instruction: TAKE ONE TABLET BY MOUTH ON tuesdays, , saturdays and sundays Rx Instructions: TAKE ONE TABLET BY MOUTH ON tuesdays, , saturdays and sundays metoprolol tartrate 25 mg tablet 37.5 mg PO BID Qty: 270 3RF clobetasol 0.05 % cream 1 applic topical DAILY Qty: 30 6RF warfarin 4 mg tablet 4 mg PO DAILY Qty: 90 0RF Protocol: Dose Management Condition: Friday Dose/Route: 3 mg Instruction: 1 x 3 mg tablet Condition: Friday Dose/Route: 3 mg Instruction: 1 x 3 mg tablet Condition: Friday Dose/Route: 3 mg Instruction: 1 x 3 mg tablet Condition: Friday Dose/Route: 2 mg Instruction: 0.5 x 4 mg tablets Condition: Dose/Route: 3 mg Instruction: 1 x 3 mg tablet Condition: Friday Dose/Route: 2 mg Instruction: 0.5 x 4 mg tablets Condition: Friday Dose/Route: 3 mg Instruction: 1 x 3 mg tablet Protocol Text: Adjustment Start Date: 08/19/24 INR Value: 3.0 INR Date: 08/18/24 Recheck Date: 08/26/24 Rx Instructions: take 1 tab Fri and cyclobenzaprine 10 mg tablet 10 mg PO TID PRN (Reason: muscle spasm) Qty: 60 0RF spironolactone 25 mg tablet 25 mg PO DAILY Qty: 90 3RF alendronate 70 mg tablet See Rx Instructions .ROUTE .COMPLEX Qty: 4 6RF Dose Instruction: TAKE 1 TABLET BY MOUTH EVERY 7 DAYS Rx Instructions: TAKE 1 TABLET BY MOUTH EVERY 7 DAYS clopidogrel [Plavix] 75 mg tablet 75 mg PO DAILY Qty: 90 3RF potassium chloride 20 mEq tablet extended release 20 meq PO BID@10,21 Qty: 180 3RF atorvastatin 40 mg tablet See Rx Instructions .ROUTE .COMPLEX Qty: 30 6RF Dose Instruction: TAKE ONE TABLET BY MOUTH EVERY DAY Rx Instructions: TAKE ONE TABLET BY MOUTH EVERY DAY levothyroxine 175 mcg tablet 175 mcg PO DAILY Qty: 30 6RF hydrocodone-acetaminophen 10-325 mg tablet 1 tab PO QID 30 Days Qty: 120 0RF cyanocobalamin (vitamin B-12) 1,000 mcg tablet 2,500 mcg PO DAILY@1000 donepezil 5 mg tablet 5 mg PO DAILY nitroglycerin [Nitrostat] 0.4 mg Tablet, Sublingual 0.4 mg SUBLINGUAL Q5M PRN (Reason: Chest Pain) Rx Instructions: do not exceed 3 doses per episode Discharge Orders: Discharge ED (Routine); Ordered 08/30/24 Ordered By: Flo Ng Referrals: Ruy Palacio MD [Primary Care Provider, Family Practice] Discharge Diet: Advance as tolerated Discharge Activity: Increase activity as tolerated Patient Instructions: Opioid Safety, Pain Management Activity Restrictions/Additional Instructions: Please return to the emergency department any new or worsening symptoms. Please follow-up with your primary care physician for any persistent symptoms. 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 [employer] Fwd Related Data Home Medications ?Medication ?Instructions ?Recorded ?Confirmed multivitamin 1 tab PO DAILY 02/08/21 05/24/24 sennosides 8.6 mg-docusate sodium 1 tab PO DAILY 02/08/21 05/24/24 50 mg tablet cholecalciferol (vitamin D3) 25 25 mcg PO DAILY 06/20/22 05/24/24 mcg (1,000 unit) capsule cyanocobalamin (vitamin B-12) 2,500 mcg PO DAILY@1000 06/20/22 05/24/24 1,000 mcg tablet donepezil 5 mg tablet 5 mg PO DAILY 03/29/23 05/24/24 nitroglycerin 0.4 mg sublingual 0.4 mg sublingual Q5M PRN Chest 05/03/23 05/24/24 tablet (Nitrostat) Pain furosemide 40 mg tablet 40 mg PO DAILY 10/09/23 05/24/24 Previous Rx's ?Medication ?Instructions ?Recorded warfarin 2.5 mg tablet See Rx Instructions .Route 06/26/23 .COMPLEX #30 tabs warfarin 3 mg tablet See Rx Instructions .Route 06/26/23 .COMPLEX #30 tabs amlodipine 2.5 mg tablet 2.5 mg PO DAILY PRN Systolic BP 10/09/23 >150 #30 tabs metoprolol tartrate 25 mg tablet 37.5 mg (1.5 x 25 mg) PO BID #270 10/17/23 tabs clobetasol 0.05 % topical cream 1 applic topical DAILY #30 grams 12/01/23 warfarin 4 mg tablet 4 mg PO DAILY #90 tabs 12/08/23 cyclobenzaprine 10 mg tablet 10 mg PO TID PRN muscle spasm #60 12/29/23 tabs spironolactone 25 mg tablet 25 mg PO DAILY #90 tabs 01/16/24 alendronate 70 mg tablet See Rx Instructions .Route 02/12/24 .COMPLEX #4 tabs clopidogrel 75 mg tablet (Plavix) 75 mg PO DAILY #90 tabs 03/25/24 atorvastatin 40 mg tablet See Rx Instructions .Route 06/16/24 .COMPLEX #30 tabs levothyroxine 175 mcg tablet 175 mcg PO DAILY #30 tabs 06/16/24 potassium chloride 20 mEq 20 meq PO BID@10,21 #180 tabs 06/16/24 tablet,extended release hydrocodone 10 mg-acetaminophen 1 tab PO QID 30 days #120 tabs 07/04/24 325 mg tablet Allergies Allergy/AdvReac Type Severity Reaction Status Date / Time No Known Allergies Allergy Verified 08/30/24 18:06
[2024-08-31 00:56] VITALS: BP 148/84; PULSE 96; RESP 18; O2SAT 97
== END 2024-08-30 22:45 | disposition home or self-care (01) ==
PROVIDERS: Emergency Provider General Practice; PCP Family Medicine
DX: R53.1 Weakness (principal); I95.9 Hypotension, unspecified; Z79.01 Long term (current) use of anticoagulants; I10 Essential (primary) hypertension; Z95.0 Presence of cardiac pacemaker
CPT/HCPCS: 71045; 80053; 80306; 81001; 84484; 85025; 85610; 85730; 93005; 99285

== ENCOUNTER → 2024-09-01 10:40 | Outpatient (BNVA) | payer MEDICARE, MEDICAID, SELFPAY | PROVIDERS: PCP Family Medicine; Visit Provider Internal Medicine Cardiovascular Disease | DX: Z45.018 Encounter for adjustment and management of other part of cardiac pacemaker (principal) | CPT/HCPCS: 93296 ==

== ENCOUNTER 2024-12-17 09:29 | Inpatient (IN) | payer OTHER, MEDICAID, SELFPAY ==
[2024-12-17] VITALS (16 sets, daily range): BP systolic 91–169; BP diastolic 65–101; PULSE 85–112; RESP 16–25; TEMP 36.6–37.1; O2SAT 23–100; BMI 21.6; BMI 22.0
--- NOTE | 2024-12-17 09:33 | ECG_ITS ---
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 Measurements Intervals [place] Rate: 111 P: 0 TN: 0 QRS: 44 QRSD: 106 T: 34 QT: 330 QTc: 449 Interpretive Statements ATRIAL FIBRILLATION WITH RAPID VENTRICULAR RESPONSE INCOMPLETE RIGHT BUNDLE BRANCH BLOCK [90+ ms QRS DURATION, TERMINAL R IN V1/V2, 40+ ms S IN I/aVL/V4/V5/V6] SEPTAL MYOCARDIAL INFARCTION , PROBABLY OLD [40+ ms Q WAVE IN V1/V2] Compared to ECG 08/30/2024 19:42:22 No significant changes Electronically Signed On 12-17-2024 20:21:22 CDT by hPan Steward M.D. [email or web address] [id number]
--- NOTE | 2024-12-17 09:34 | CT_ITS ---
WS: [id number] CT HEAD NONCONTRAST HISTORY: fall, head injury TECHNIQUE: Contiguous axial imaging performed through the brain. Bone and soft tissue windows. Sagittal and coronal reformats reviewed. All CT scans at [facility] use at least one of these dose optimization techniques: automated exposure control; mA and/or kV adjustment per patient size (includes targeted exams where dose is matched to clinical indication); or iterative reconstruction. DLP: 1035.98 mGy.cm COMPARISON: 01/24/2023 No acute intracranial hemorrhage, midline shift or mass effect. Moderate atrophy and small vessel disease. Similar to the prior study. No interval infarct. Ventricles: Normal size with no hydrocephalus. No inferior displacement the cerebellar tonsils. Paranasal sinuses: As visualized are clear. Mastoid air cells: Well pneumatized. Calvarium and scalp: Skull is intact with no soft tissue edema or swelling. CT/CT head wo con* [id number] IMPRESSION: 1. No acute intracranial hemorrhage or edema. 2. Moderate atrophy and small vessel disease, similar to the prior study from 01/24/2023. 3. No additional infarcts.
--- NOTE | 2024-12-17 09:39 | W.ED.CHESTPA ---
HPI - Chest Pain General: Chief Complaint: Chest Pain Stated Complaint: chest pain - fall History of Present Illness: 79-year-old female with a history of chronic Coumadin anticoagulation along with Plavix, atrial fibrillation, pacemaker placement, carotid artery stenosis status post stents, chronic back pain, depression, hypertension, hyperlipidemia, mechanical aortic valve replacement who presents emergency room by ambulance from home after having had a fall and having some chest pain. She has been having some left intermittent chest pain. She has had 2 falls and has hit her head. Last night she fell and her helped her to bed. Today she was using her walker and fell again at this point hit her head. No loss of consciousness. No altered mental status. States she has been more generally weak. Sleepy/lethargic. She is complaining of mild bilateral hip and pelvic pain. Pain all down her legs. No obvious deformities. Related Data Home Medications ?Medication ?Instructions ?Recorded ?Confirmed multivitamin 1 tab PO DAILY 02/08/21 05/24/24 sennosides 8.6 mg-docusate sodium 1 tab PO DAILY 02/08/21 05/24/24 50 mg tablet cholecalciferol (vitamin D3) 25 25 mcg PO DAILY 06/20/22 05/24/24 mcg (1,000 unit) capsule cyanocobalamin (vitamin B-12) 2,500 mcg PO DAILY@1000 06/20/22 05/24/24 1,000 mcg tablet donepezil 5 mg tablet 5 mg PO DAILY 03/29/23 05/24/24 nitroglycerin 0.4 mg sublingual 0.4 mg sublingual Q5M PRN Chest 05/03/23 05/24/24 tablet (Nitrostat) Pain Previous Rx's ?Medication ?Instructions ?Recorded warfarin 2.5 mg tablet See Rx Instructions .Route 06/26/23 .COMPLEX #30 tabs amlodipine 2.5 mg tablet 2.5 mg PO DAILY PRN Systolic BP 10/09/23 >150 #30 tabs clobetasol 0.05 % topical cream 1 applic topical DAILY #30 grams 12/01/23 cyclobenzaprine 10 mg tablet 10 mg PO TID PRN muscle spasm #60 12/29/23 tabs spironolactone 25 mg tablet 25 mg PO DAILY #90 tabs 01/16/24 clopidogrel 75 mg tablet (Plavix) 75 mg PO DAILY #90 tabs 03/25/24 atorvastatin 40 mg tablet See Rx Instructions .Route 06/16/24 .COMPLEX #30 tabs potassium chloride 20 mEq 20 meq PO BID@10,21 #180 tabs 06/16/24 tablet,extended release warfarin 4 mg tablet See Rx Instructions .Route 09/08/24 .COMPLEX #90 tabs alendronate 70 mg tablet See Rx Instructions .Route 09/09/24 .COMPLEX #4 tabs metoprolol tartrate 25 mg tablet 37.5 mg (1.5 x 25 mg) PO BID #270 09/09/24 tabs warfarin 3 mg tablet See Rx Instructions .Route 09/09/24 .COMPLEX #30 tabs furosemide 40 mg tablet 40 mg PO DAILY #90 tabs 10/18/24 levothyroxine 175 mcg tablet 175 mcg PO DAILY #30 tabs 11/08/24 hydrocodone 10 mg-acetaminophen 1 tab PO QID 30 days #120 tabs 12/09/24 325 mg tablet Allergies Allergy/AdvReac Type Severity Reaction Status Date / Time No Known Allergies Allergy Verified 08/30/24 18:06 [facility] PFSH: Medical History (Updated 12/17/24 @ 13:39 by Denita Norton MD) Fall as cause of accidental injury at home as place of occurrence Chronic anticoagulation Pacemaker Chronic atrial fibrillation Patient has history of intermittent atrial fibrillation. History of common carotid artery stent placement Clinically stable Arthritis, lumbar spine Chronic lumbar radiculopathy Spinal stenosis, lumbar region without neurogenic claudication Encounter for long-term opiate analgesic use Depression Hypercholesterolemia Hypothyroidism Hypertension Atrial fibrillation Surgical History (Updated 12/17/24 @ 13:39 by Denita Norton MD) History of left hip hemiarthroplasty Date of procedure: March 30, 2023. Surgeon: Dr. Leisa Arzola MD. Pre-op diagnosis: Left subcapital hip fracture, impacted and slightly angulated. Post-op diagnosis: Left subcapital hip fracture, impacted and slightly angulated Procedure done: Left bipolar hip arthroplasty Implants: The [place] total hip system with a size 49 mm universal head bipolar component with 28 mm inner diameter and a [place] 28 mm outer diameter +4 mm offset V40 LFIT Femoral head, and a size 6 Accolade II 127? neck angle hip stem History of back surgery History of permanent cardiac pacemaker placement Aortic valve replaced 2000. Mechanical H/O section History of appendectomy History of carpal tunnel surgery of right wrist History of carpal tunnel surgery of left wrist H/O aortic valve replacement History of bilateral carotid endarterectomy Family History Mother Dementia Father CAD (coronary artery disease) Denies family history of Diabetes Clotting disorder Chronic kidney disease (CKD) Suicide Anesthesia complication Bleeding disorder Lung disease Cancer Stroke Social History Smoking and tobacco/nicotine status: never used tobacco/nicotine Second hand smoke exposure: No Alcohol intake: never Substance/Drug Use: never Lives independently: Yes Household members: significant other Physical Exam Narrative: EXAM NARRATIVE: General: Alert, no acute distress. Skin: Warm, dry. Head: Normocephalic, atraumatic. Neck: Supple, trachea midline. Eye: Extraocular movements are intact. Ears, nose, mouth and throat: mucosa moist. Cardiovascular: Regular, Normal peripheral perfusion. Respiratory: Lungs are clear to auscultation, respirations are non-labored, breath sounds are equal, Symmetrical chest wall expansion. Gastrointestinal: Soft, Nontender, Non distended Musculoskeletal: Pain in the right hip area with movement. No obvious shortening or rotation. Neurological: Alert and oriented, No focal neurological deficit observed. Psychiatric: Cooperative, appropriate mood & affect. Course Vital Signs: Vital signs: Vital Signs Temperature 98.8 F 12/17/24 09:57 Pulse Rate 95 12/17/24 13:50 Respiratory Rate 22 H 12/17/24 13:20 Blood Pressure 140/65 12/17/24 13:50 Pulse Oximetry 94 12/17/24 13:50 Oxygen Delivery Me thod Nasal Cannula 12/17/24 10:51 Oxygen Flow Rate 2 12/17/24 10:51 MDM - Chest Pain Medical Decision Making Differential diagnosis for patient with chest pain includes but is not limited to and based on the above HPI, review of systems and physical exam: Pneumonia. unstable angina. angina. Acute coronary syndrome / PA. Pulmonary embolism. Costochondritis / musculoskeletal. Pleurisy. Pericarditis. Esophageal spasm. Pancreatis. Cholecystitis. Orders placed to evaluate differential diagnosis based on the above differential, HPI and physical exam Differential diagnosis including but not limited to and based on the above HPI, review of systems and physical exam: patient with fall and head injury. Subdural hematoma, subarachnoid hemorrhage, concussion, skull fracture. Orders placed to evaluate differential diagnosis based on the above differential, HPI and physical exam CT scan of the head was ordered. Differential diagnosis for the patient with fall and hip pain includes but not limited to and based on the above HPI, review of systems and physical exam: Hip fracture, femur fracture, pelvic fractures including pubic rami and acetabular fractures, hip strain, hip contusion EKG: Time 9:36 AM. Rate 111. Atrial fibrillation with rapid ventricular response, nonspecific T wave changes. no ectopy, This was reviewed and interpreted by myself the ER physician at 9:[address] head: Senescent changes no acute intracranial process. no intracranial hemorrhage, no evidence of infarct. no evidence of acute fracture.This was reviewed and interpreted by myself the ER physician. Chest x-ray: Cardiomegaly. Atherosclerosis. Artificial aortic valve. Pacemaker. No acute process. No infiltrate. No pneumothorax. This was reviewed and interpreted by myself the emergency room physician. I also reviewed the radiology report. X-ray of the pelvis and bilateral hips: Impacted subcapital fracture of the right hip. This was reviewed and interpreted by myself the emergency room physician. I also reviewed the radiology report. Lab Review: Laboratory results were reviewed and interpreted by myself the emergency room physician. Some mild leukocytosis with a white count of 15,000. No anemia. BUN/creatinine are 28 and 1.2. This is similar to most recent measurements. Urinalysis is negative for infection. proBNP is slightly elevated over baseline. I reviewed the patient's medical record. 79-year-old female with a history of chronic Coumadin anticoagulation along with Plavix, atrial fibrillation, pacemaker placement, carotid artery stenosis status post stents, chronic back pain, depression, hypertension, hyperlipidemia, mechanical aortic valve replacement Reexamination: Patient remained stable. No increased work of breathing. No altered mental status. No focal motor deficits. I discussed findings with the patient and her family. Consultation: I spoke with Dr. Hillman who is on-call for the hospitalist service who agrees to admission Consultation: Spoke with Dr. Lundberg who is on-call for orthopedics who is reviewed the films. He will consult on the patient. Assessment and plan: Hip fracture Chronic anticoagulation on Coumadin Mechanical aortic valve Multiple falls -I discussed the patient with the hospitalist on-call who is admitting the patient. - Discussed findings and plan with patient. Answered any questions. - All laboratory values were reviewed and interpreted personally by myself, the ER physician - All imaging was reviewed and interpreted personally by myself, the ER physician. - Evaluation and treatment of this problem were appropriate in the emergency setting Lab Data 12/17/24 09:49 12/17/24 09:[address] 12/17/24 09:34 IMPRESSION: 1. No acute intracranial hemorrhage or edema. 2. Moderate atrophy and small vessel disease, similar to the prior study from 01/24/2023. 3. No additional infarcts. Chest X-Ray 12/17/24 10:16 Impression: 1. Cardiomegaly and atherosclerosis. 2. Artificial aortic valve and cardiac pacemaker. Hip/Pelvis X-Ray 12/17/24 10:17 Impression: 1. Impacted subcapital fracture of the right hip. 2. Stable left hip arthroplasty. Laboratory Results WBC 15.85 10^3/uL (3.29-11.43) H 12/17/24 09:49 RBC 4.18 10^6/uL (3.85-5.65) 12/17/24 09:49 Hgb 13.10 g/dL (11.27-16.99) 12/17/24 09:49 Hct 40.9 % (36-47) 12/17/24 09:49 MCV 97.8 fl (85-98) 12/17/24 09:49 MCH 31.3 pg (27-33) 12/17/24 09:49 MCHC 32.0 g/dL (30-55) 12/17/24 09:49 RDW 13.9 % (12.1-15.1) 12/17/24 09:49 Plt Count 183 10^3/cmm (157-399) 12/17/24 09:49 MPV 10.0 fL (7.4-10.4) 12/17/24 09:49 Neut % (Auto) 85.8 % 12/17/24 09:49 Lymph % (Auto) 7.3 % 12/17/24 09:49 Schleicher % (Auto) 4.9 % 12/17/24 09:49 Eos % (Auto) 1.2 % 12/17/24 09:49 Baso % (Auto) 0.3 % 12/17/24 09:49 Neut # (Auto) 13.60 10^3/uL (1.8-7.7) H 12/17/24 09:49 Lymph # (Auto) 1.2 10^3/uL (0.8-4.8) 12/17/24 09:49 Schleicher # (Auto) 0.8 10^3/uL (0.2-0.9) 12/17/24 09:49 Eos # (Auto) 0.2 10^3/uL (0.0-0.8) 12/17/24 09:49 Baso # (Auto) 0.1 10^3/uL (0.0-0.1) 12/17/24 09:49 Nucleated RBC % (auto) 0 % 12/17/24 09:49 Nucleated RBCs # 0.0 /100WBC 12/17/24 09:49 PT 27.20 SECONDS (12.1-14.9) H 12/17/24 09:49 INR 2.37 (0.8-1.2) H 12/17/24 09:49 APTT 31.4 SECONDS (23.9-36.7) 12/17/24 09:49 Sodium 136 mmol/L (136-145) 12/17/24 09:49 Potassium 6.2 mmol/L (3.5-5.1) H 12/17/24 09:49 Chloride 101 mmol/L (98-107) 12/17/24 09:49 Carbon Dioxide 17 mmol/L (22-29) L 12/17/24 09:49 Anion Gap 24.2 (5-19) H 12/17/24 09:49 BUN 28 mg/dL (8-23) H 12/17/24 09:49 Creatinine 1.2 mg/dL (0.5-0.9) H 12/17/24 09:49 GFR Calculation Not Reportable 12/17/24 09:49 Glucose 153 mg/dL (65-115) H 12/17/24 09:49 Calculated Osmolality 291 mOsm/kg (285-295) 12/17/24 09:49 Lactic Acid 3.8 mmol/L (0.5-2.2) H 12/17/24 09:49 Lactic Acid (Sepsis) 2.7 mmol/L (0.5-2.2) H 12/17/24 11:39 Calcium 9.9 mg/dL (8.5-10.5) 12/17/24 09:49 Total Bilirubin 1.2 mg/dL (0.15-1.2) 12/17/24 09:49 AST 45 U/L (0-32) H 12/17/24 09:49 ALT 44 U/L (0-33) H 12/17/24 09:49 Alkaline Phosphatase 75 U/L (35-105) 12/17/24 09:49 Creatine Kinase 62 U/L (26-192) 12/17/24 09:49 Troponin T Baseline 53 ng/L (0-10) H 12/17/24 09:49 Troponin T 120 Minute 54.76 ng/L (0-10) H 12/17/24 11:39 Delta Troponin T 1.76 ABS# (0-10) 12/17/24 11:39 NT-Pro-B Natriuret Pep 8827 pg/mL (0-450) H 12/17/24 09:49 Total Protein 7.0 g/dL (6.6-8.7) 12/17/24 09:49 Albumin 4.3 g/dL (3.5-5.2) 12/17/24 09:49 Globulin 2.7 g/dL (1.3-4.6) 12/17/24 09:49 Procalcitonin 0.08 ng/mL (0-0.5) 12/17/24 09:49 Urine Color Dark yellow (Yellow) A 12/17/24 09:49 Urine Appearance Cloudy (CLEAR) A 12/17/24 09:49 Urine pH 5.0 (5-7) 12/17/24 09:49 Ur Specific [place] 1.028 (1.005-1.030) 12/17/24 09:49 Urine Protein 3+ (Negative) A 12/17/24 09:49 Urine Glucose (UA) Negative (Normal) 12/17/24 09:49 Urine Ketones Trace (Negative) 12/17/24 09:49 Urine Blood Negative (Negative) 12/17/24 09:49 Urine Nitrate Negative (Negative) 12/17/24 09:49 Urine Bilirubin 1+ (Negative) H 12/17/24 09:49 Urine Urobilinogen 1.0 mg/dL (Negative) 12/17/24 09:49 Ur Leukocyte Esterase 1+ (Negative) A 12/17/24 09:49 Urine RBC 6-10 /hpf (0-2) 12/17/24 09:49 Urine WBC 0-5 /hpf (0-5) 12/17/24 09:49 Ur Squamous Epith Cells 6-10 /hpf (0-5) 12/17/24 09:49 Amorphous Sediment Not Reportable 12/17/24 09:49 Urine Bacteria None seen /hpf (NONE) 12/17/24 09:49 Hyaline Casts 78.18 /lpf 12/17/24 09:49 Coarse Granular Casts 5-10 /lpf H 12/17/24 09:49 All radiology interpretation(s) finalized by discharge Discharge Plan Discharge Patient Disposition: Admitted As Inpatient Admit Provider: Leon Hillman Clinical Impression: Closed hip fracture, Chest pain, Multiple falls, Chronic anticoagulation, H/O mechanical aortic valve replacement Condition: Stable Coding Level of Care Code ED Finish Remover for Giovani Mendosa
--- OUTSIDE RECORDS SUMMARY | 2024-12-17 09:43 | XMS_ITS | Encounter Summary ---
Author Organization [facility] Address [address] 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
--- OUTSIDE RECORDS SUMMARY | 2024-12-17 09:43 | XMS_ITS | Clinical Summary ---
Author Organization [facility] Address [address] Attn: Epic Prelude ADT [place]UM[place] MARCELO [address] Care Team Providers Care Conference Service Coordinator Name Role Phone Tristin Gallegos MD Primary Care Provider [phone] Allergies No known active allergies Medications LORazepam (ATIVAN) 0.5 mg tablet Take 0.5 mg by mouth every 6 hours as needed for Anxiety. 11/18/2014 Active HYDROcodone-anisha taminophen (NORCO) 7.5-325 mg Tablet Take 1 Tab by mouth every 4 hours as needed for Pain, Moderate. 11/18/2014 Active nitroglycerin (NITROSTAT) 0.4 mg Tablet, Sublingual Place 0.4 mg under tongue every 5 minutes as needed for Chest Pain. 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 11/18/2014 Active furosemide (LASIX) 40 mg tablet Take 40 mg by mouth daily. 11/18/2014 Active amLODIPine (NORVASC) 5 mg tablet Take 5 mg by mouth daily. 01/08/2017 Active sucralfate (CARAFATE) 1 gram tablet Take 1 Gram by mouth 4 times daily before meals and at bedtime. 01/08/2017 Active aspirin (ECOTRIN EC) 81 mg Tablet, Delayed Release (E.C.) Take 81 mg by mouth daily. 01/08/2017 Active metoprolol succinate (TOPROL XL) 25 mg Extended Release 24 hour tablet Take 25 mg by mouth daily. 01/08/2017 Active amiodarone (CORDARONE) 400 mg Tablet Take 400 mg by mouth daily. 05/25/2015 Active simvastatin (ZOCOR) 40 mg tablet Take 40 mg by mouth Daily LATE. 05/25/2015 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 11/18/2014 Hypertension 11/18/2014 Chronic anticoagulation 11/18/2014 Dizziness and giddiness 11/18/2014 Social History Tobacco Use Types Packs/Day Years Used Date Smoking Tobacco: Former Cigarettes Q uit: 11/19/2011 Alcohol Use Standard Drinks/Week Comments Yes 0.8 (1 standard drink = 0.6 oz p ure alcohol) Comments Unknown Sex and Gender Information Value Date Recorded Sex Assigned at Not on file Legal Sex Female 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 Gender Identity Not on file Sexual Orientation Not on file Last Filed Vital Signs Vital Sign Reading Time Taken Comments Blood Pressure 126/80 03/11/2017 9:30 AM COCOA MILL OPERATOR Pulse 66 03/11/2017 9:30 AM COCOA MILL OPERATOR Temperature - - Respiratory Rate 12 08/23/2016 1:35 PM CDT Oxygen Saturation - - Inhaled Oxygen Concentration - - Weight 78.5 kg (173 lb) 03/11/2017 9:30 AM COCOA MILL OPERATOR Height 165.1 cm (5' 5 ) 03/11/2017 9:30 AM COCOA MILL OPERATOR Body Mass Index 28.79 03/11/2017 9:30 AM COCOA MILL OPERATOR Plan of Treatment Health Maintenance Due Date Last Done Comments DTAP/TDAP/TD VACCINES (1 - Tdap) 1964 PNEUMOCOCCAL VACCINE 50+ YEARS (1 of 1 - PCV) 10/24/18 96 ZOSTER VACCINE (1 of 2) 10/25/1995 OSTEOPOROSIS SCREENING 2010 RSV VACCINE (60+ or ) (1 - 1-dose 75+ series) 2020 INFLUENZA VACCINE (#1) 2024 Care Teams Conference Service Coordinator Relationship Specialty Start Date End Date Tristin Gallegos MD [address] [address] PCP - General Family Practice 08/14/16
--- OUTSIDE RECORDS SUMMARY | 2024-12-17 09:43 | XMS_ITS | Encounter Summary ---
Author Organization [facility] Address [address] [place] [place] [address] Care Team Providers Care Heavy Duty Truck Mechanic Name Role Phone Tristin Gallegos MD Primary Care Provider [phone] Encounter Details Date Type Department Care Team (Latest Contact Info) Description 01/16/1999 Outpatient Historical [facility] Celestine Tang MD [address] [place] [id number] Herpes zoster without mention of complication (Primary Dx) Social History Tobacco Use Types Packs/Day Years Used Date Smoking Tobacco: Never Assessed Comments Unknown Sex and Gender Information Value Date Recorded Sex Assigned at Not on file 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
--- OUTSIDE RECORDS SUMMARY | 2024-12-17 09:43 | XMS_ITS | Encounter Summary ---
Author Organization [facility] Address [address] [place] [address] Care Team Providers Care Revenue Audit Clerk Name Role Phone Tristin Gallegos MD Primary Care Provider [phone] Encounter Details Date Type Department Care Team (Late st Contact Info) Description 12/02/2012 Ancillary Orders [facility] Card[facility]- [facility] [address] [place] [address] Zach Velasquez MD [address] [facility] [address] [place] [address] Carotid stenosis (Primary Dx) Social History Tobacco Use Types Packs/Day Years Used Date Smoking Tobacco: Every Day Cigarettes Alcohol Use Standard Drinks/Week Comments Yes 0.8 (1 standard drink = 0.6 oz p ure alcohol) Comments Unknown Sex and Gender Information Value Date Recorded Sex Assigned at Not on file 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
--- OUTSIDE RECORDS SUMMARY | 2024-12-17 09:43 | XMS_ITS | Encounter Summary ---
Author Organization [facility] Address [address] [place] [address] Care Team Providers Care Light Equipment Operator Name Role Phone Tristin Gallegos MD Primary Care Provider [phone] Encounter Details Date Type Department Care Team (Latest Contact Info) Description 07/08/2000 Outpatient Historical [facility] Celestine Tang MD [address] [place] [address] Unspecified hypothyroidism (Primary Dx); Chest pain, unspecified Social History Tobacco Use Types Packs/Day Years Used Date Smoking Tobacco: Never Assessed Comments Unknown Sex and Gender Information Value Date Recorded Sex Assigned at Not on file 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
--- OUTSIDE RECORDS SUMMARY | 2024-12-17 09:43 | XMS_ITS | Encounter Summary ---
Author Organization [facility] Address [address] 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 [address] [place] [address] PCP - General Family Practice 08/14/16 documented as of this encounter
--- OUTSIDE RECORDS SUMMARY | 2024-12-17 09:43 | XMS_ITS | Encounter Summary ---
Author Organization [facility] Address [address] 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
--- OUTSIDE RECORDS SUMMARY | 2024-12-17 09:43 | XMS_ITS | Encounter Summary ---
Author Organization [facility] Address [address] [place] [address] Care Team Providers Care Paint Department Supervisor Name Role Phone Tristin Gallegos MD Primary Care Provider Encounter Details Date Type Department Care Team (Latest Contact Info) Description 08/11/2001 Outpatient Historical HIS [facility] Celestine Tang MD [address] [place] [address] AFTERCARE INTERMEDIATE ANTICOAG USE (Primary Dx) Social History Tobacco Use Types Packs/Day Years Used Date Smoking Tobacco: Never Assessed Comments Unknown Sex and Gender Information Value Date Recorded Sex Assigned at Not on file Legal Sex Female 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
--- OUTSIDE RECORDS SUMMARY | 2024-12-17 09:43 | XMS_ITS | Encounter Summary ---
Author Organization [employer] [facility] Address [address] [place] [address] Care Team Providers Care Ferryboat Captain Name Role Phone Tristin Gallegos MD Primary Care Provider [phone] Encounter Details Date Type Department Care Team (Latest Contact Info) Description 01/01/2000 Outpatient Historical HIS [facility] Celestine Tang MD [address] [place] [id number] Other malaise and fatigue (Primary Dx) Social History Tobacco Use Types Packs/Day Years Used Date Smoking Tobacco: Never Assessed Comments Unknown Sex and Gender Information Value Date Recorded Sex Assigned at Not on file Legal Sex Female 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
--- OUTSIDE RECORDS SUMMARY | 2024-12-17 09:43 | XMS_ITS | Clinical Summary ---
Author Organization [facility] Address [address] [place] [address] Phone Care Team Providers Care Parent Partner Name Role Phone Tristin Gallegos MD Primary Care Provider [phone] Allergies No known active allergies Medications potassium chloride SR (KLOR-CON M20) 20 mEq Oral tablet Take 20 mEq by mouth daily. Active warfarin (COUMADIN) 4 mg Oral tablet Take 4 mg by mouth daily. Active furosemide (LASIX) 40 mg tablet Take 40 mg by mouth daily. Active levothyroxine 150 mcg tablet Take 150 mcg by mouth daily district wire chief. Active LORazepam (ATIVAN) 0.5 mg tablet Take 0.5 mg by mouth every 6 hours as needed for Anxiety. Active HYDROcodone-anisha taminophen (NORCO) 7.5-325 mg Tablet Take 1 Tab by mouth every 4 hours as needed for Pain, Moderate. Active nitroglycerin (NITROSTAT) 0.4 mg Tablet, Sublingual Place 0.4 mg under tongue every 5 minutes as needed for Chest Pain. Active amiodarone (CORDARONE) 400 mg Tablet Take 400 mg by mouth daily. Active simvastatin (ZOCOR) 40 mg tablet Take 40 mg by mouth Daily LATE. Active amLODIPine (NORVASC) 5 mg tablet Take 5 mg by mouth daily. Active aspirin (ECOTRIN EC) 81 mg Tablet, Delayed Release (E.C.) Take 81 mg by mouth daily. Active sucralfate (CARAFATE) 1 gram tablet Take 1 Gram by mouth 4 times daily before meals and at bedtime. Active metoprolol succinate (TOPROL XL) 25 mg Extended Release 24 hour tablet Take 25 mg by mouth daily. 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 11/18/2014 Chronic anticoagulation 11/18/2014 Hypertension 11/18/2014 Dizziness and giddiness 11/18/2014 Social History Tobacco Use Types Packs/Day Years Used Date Smoking Tobacco: Former Cigarettes Q uit: 11/19/2011 Alcohol Use Standard Drinks/Week Comments Yes 0.8 (1 standard drink = 0.6 oz p ure alcohol) Comments No Sex and Gender Information Value Date Recorded Sex Assigned at Not on file Legal Sex Female 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 Gender Identity Not on file Sexual Orientation Not on file Last Filed Vital Signs Vital Sign Reading Time Taken Comments Blood Pressure 126/80 03/11/2017 9:30 AM HEATING UNIT MECHANIC Pulse 66 03/11/2017 9:30 AM HEATING UNIT MECHANIC Temperature 36.2 C (97.2 F) 02/04/2010 10:39 AM CDT Respiratory Rate 12 08/23/2016 1:35 PM CDT Oxygen Saturation 94% 02/25/2017 12:39 PM HEATING UNIT MECHANIC Inhaled Oxygen Concentration - - Weight 78.5 kg (173 lb) 03/11/2017 9:30 AM HEATING UNIT MECHANIC Height 165.1 cm (5' 5 ) 03/11/2017 9:30 AM HEATING UNIT MECHANIC Body Mass Index 28.79 03/11/2017 9:30 AM HEATING UNIT MECHANIC Plan of Treatment Health Maintenance Due Date Last Done Comments DTAP/TDAP/TD VACCINES (1 - Tdap) 1964 PNEUMOCOCCAL VACCINE 50+ YEARS (1 of 1 - PCV) 10/24/18 96 ZOSTER VACCINE (1 of 2) 10/25/1995 OSTEOPOROSIS SCREENING 2010 RSV VACCINE (60+ or ) (1 - 1-dose 75+ series) 2020 INFLUENZA VACCINE (#1) 2024 Insurance MEDICARE PART A [place] B [place]ICAID [place] Care Teams Parent Partner Relationship Specialty Start Date End Date Tristin Gallegos MD [address] [address] PCP - General Family Practice 08/14/16
--- OUTSIDE RECORDS SUMMARY | 2024-12-17 09:43 | XMS_ITS | Encounter Summary ---
Author Organization [facility] Address [address] [place] [address] Care Team Providers Care Utility Pipe Layer Name Role Phone Tristin Gallegos MD Primary Care Provider [phone] Encounter Details Date Type Department Care Team (Latest Contact Info) Description 09/18/2000 Outpatient Historical [facility] Cardiac Thoracic Vascular Surg [place] [address] [place] [address] Alton Crabtree MD NO ADDRESS ON FILE Thoracic aortic aneurysm (Primary Dx); Aortic valve disorder Social History Tobacco Use Types Packs/Day Years Used Date Smoking Tobacco: Never Assessed Comments Unknown Sex and Gender Information Value Date Recorded Sex Assigned at Not on file 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
--- OUTSIDE RECORDS SUMMARY | 2024-12-17 09:43 | XMS_ITS | Clinical Summary ---
Author Organization [facility] Address [address] [address] Care Team Providers Care Clammer Name Role Phone Tristin Gallegos MD Primary Care Provider [phone] Allergies No known active allergies Medications amiodarone (PACERONE) 200 MG tablet Take 200 mg by mouth daily Active amLODIPine (NORVASC) 5 MG tablet Take 5 mg by mouth daily Active furosemide (LASIX) 20 MG tablet Take 20 mg by mouth daily Active HYDROcodone-acet aminophen (LORCET PLUS) 10-325 MG per tablet Take 1 tablet by mouth every 4 (four) hours if needed Active levothyroxine (SYNTHROID, LEVOTHROID) 125 MCG tablet Take 125 mcg by mouth 1 (one) time each day Active LORazepam (ATIVAN) 0.5 MG tablet Take 0.5 mg by mouth every 6 (six) hours if needed Active metoprolol succinate XL (TOPROL-XL) 25 MG 24 hr tablet Take 25 mg by mouth daily Active nitroglycerin (NITROSTAT) 0.[address] 0.4 mg under the tongue Active potassium chloride (KLOR-CON M20) 20 MEQ CR tablet 20 mEq Take 1/2 tablet by mouth daily and as needed Active simvastatin (ZOCOR) 40 MG tablet Take 40 mg by mouth Active sucralfate (CARAFATE) 1 g tablet Take 1 g by mouth Active warfarin (COUMADIN) 4 MG tablet Take 4 mg by mouth daily Active aspirin (ST KALA) 81 MG EC tablet Take 81 mg by mouth daily Active spironolactone (ALDACTONE) 25 MG tablet Take 25 mg by mouth 1 (one) time each day Active Active Problems Problem Noted Date Diagnosed Date Chronic kidney disease, stage 3 (moderate) 12/02 /2019 Essential (primary) hypertension 03/15/2019 Family History Medical History Relation Comments Heart disease Father Dementia Mother Heart disease Mother Relation Status Comments Father Mother Social History Tobacco Use Types Packs/Day Years Used Date Smoking Tobacco: Former Cigarettes Smokeless Tobacco: Never Alcohol Use Standard Drinks/Week Comments Never 0 (1 standard drink = 0.6 oz pur e alcohol) AUDIT-C Answer Date Recorded Frequency of Alcohol Consumption Never 03/10/2019 Average Number of Drinks Not on file 019 Frequency of Binge Drinking Not on file 02/13 Comments Unknown Sex and Gender Information Value Date Recorded Sex Assigned at Not on file Legal Sex Female 11:43 AM EDT Gender Identity Not on file Sexual Orientation Not on file Last Filed Vital Signs Vital Sign Reading Time Taken Comments Blood Pressure 150/72 03/10/2019 2:02 PM DIGITAL ACCOUNT COORDINATOR Pulse 60 03/10/2019 2:02 PM DIGITAL ACCOUNT COORDINATOR Temperature - - Respiratory Rate - - Oxygen Saturation - - Inhaled Oxygen Concentration - - Weight 69.9 kg (154 lb 1.6 oz) 03/10/2019 2:02 P M DIGITAL ACCOUNT COORDINATOR Height 165.1 cm (5' 5 ) 03/10/2019 2:02 PM DIGITAL ACCOUNT COORDINATOR Body Mass Index 25.64 03/10/2019 2:02 PM DIGITAL ACCOUNT COORDINATOR Plan of Treatment Health Maintenance Due Date Last Done Comments Pneumococcal Vaccine: 50+ Ye ars (1 of 2 - PCV) 1964 Influenza Vaccine (#1) 2024 Hepatitis B Vaccine Aged Out No longe r eligible based on patient's age to complete this topic Insurance Medicare Medicaid [place] ([id number]) Care Teams Clammer Relationship Specialty Start Date End Date Tristin Gallegos MD [address] [place] [address] PCP - General Family Medicine 02/18/19
--- OUTSIDE RECORDS SUMMARY | 2024-12-17 09:43 | XMS_ITS | Encounter Summary ---
Author Organization [facility] Address [address] [place] [address] Care Team Providers Care Head Chef Name Role Phone Tristin Gallegos MD Primary Care Provider [phone] Encounter Details Date Type Department Care Team (Latest Contact Info) Description 02/09/2001 Outpatient Historical HIS [facility] Kenny Amado MD [address] [place] [address] ADJUSTMENT REACTION NOS (Primary Dx) Social History Tobacco Use Types Packs/Day Years Used Date Smoking Tobacco: Never Assessed Comments Unknown Sex and Gender Information Value Date Recorded Sex Assigned at Not on file Legal Sex Female 6:43 AM 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
--- OUTSIDE RECORDS SUMMARY | 2024-12-17 09:43 | XMS_ITS | Encounter Summary ---
Author Organization [facility] Address [address] 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
--- OUTSIDE RECORDS SUMMARY | 2024-12-17 09:43 | XMS_ITS | Encounter Summary ---
Author Organization [employer] [facility] Address [address] [place] [address] Care Team Providers Care Lusterer Name Role Phone Tristin Gallegos MD Primary Care Provider [phone] Encounter Details Date Type Department Care Team (Latest Contact Info) Description 04/01/2000 Outpatient Historical HIS [facility] Celestine Tang MD [address] [place] [phone] Unspecified hypothyroidism (Primary Dx); Encounter for long-term (current) use of other medications Social History Tobacco Use Types Packs/Day Years Used Date Smoking Tobacco: Never Assessed Comments Unknown Sex and Gender Information Value Date Recorded Sex Assigned at Not on file Legal Sex Female 6:43 AM CRIB ATTENDANT Gender Identity Not on file Sexual Orientation Not on file documented as of this encounter Plan of Treatment Not on file documented as of this encounter Visit Diagnoses Diagnosis Unspecified hypothyroidism- Primary Encounter for long-term (current) use of other medications documented in this encounter Care Teams Lusterer Relationship Specialty Start Date End Date Tristin Gallegos MD [address] [address] PCP - General Family Practice 08/14/16 documented as of this encounter
--- OUTSIDE RECORDS SUMMARY | 2024-12-17 09:43 | XMS_ITS | Encounter Summary ---
Author Organization [facility] Address [address] [place] [address] Care Team Providers Care Product Development Specialist Name Role Phone Tristin Gallegos MD Primary Care Provider [phone] Encounter Details Date Type Department Care Team (Late st Contact Info) Description 08/23/2008 Ancillary Orders [facility] [address] [place] [address] Zach Velasquez MD [address] [place] [address] Carotid Art Occ w/o Infarc Social History Tobacco Use Types Packs/Day Years Used Date Smoking Tobacco: Never Assessed Comments Unknown Sex and Gender Information Value Date Recorded Sex Assigned at Not on file Legal Sex Female 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
--- OUTSIDE RECORDS SUMMARY | 2024-12-17 09:43 | XMS_ITS | Encounter Summary ---
Author Organization [facility] Address [address] [place] [address] Care Team Providers Care Outside Sales Representative Insurance Name Role Phone Tristin Gallegos MD Primary Care Provider [phone] Encounter Details Date Type Department Care Team (Latest Contact Info) Description 07/23/2001 Outpatient Historical HIS [facility] Celestine Tang MD [address] [place] [address] AFTERCARE ASSISTED ANTICOAG USE (Primary Dx) Social History Tobacco Use Types Packs/Day Years Used Date Smoking Tobacco: Never Assessed Comments Unknown Sex and Gender Information Value Date Recorded Sex Assigned at Not on file Legal Sex Female 6:43 AM MANAGER LICENSING Gender Identity Not on file Sexual Orientation Not on file documented as of this encounter Plan of Treatment Not on file documented as of this encounter Visit Diagnoses 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
--- OUTSIDE RECORDS SUMMARY | 2024-12-17 09:43 | XMS_ITS | Encounter Summary ---
Author Organization [facility] Address [address] [facility] [place] [address] Phone Care Team Providers Care National Dedicated Truck Driver Name Role Phone Tristin Gallegos MD Primary Care Provider [phone] Encounter Details Date Type Department Care Team (Late st Contact Info) Description 10/12/2018 Orders Only [facility] [address] [facility] [place] [address] Chronic kidney disease, not otherwise specified Social History Tobacco Use Types Packs/Day Years Used Date Smoking Tobacco: Never Assessed Comments Unknown Sex and Gender Information Value Date Recorded Sex Assigned at Not on file Legal Sex Female 11:43 AM EDT Gender Identity Not on file Sexual Orientation Not on file documented as of this encounter Plan of Treatment Not on file documented as of this encounter Visit Diagnoses Diagnosis Chronic kidney disease, not otherwise specified documented in this encounter Care Teams National Dedicated Truck Driver Relationship Specialty Start Date End Date Tristin Gallegos MD [address] [place] [address] PCP - General Family Medicine 02/18/19 documented as of this encounter
[2024-12-17 10:08] LABS: Hematocrit 40.9 % (36-47); Hemoglobin 13.10 g/dL (11.27-16.99); Mean Corpuscular HGB Conc 32.0 g/dL (30-55); Mean Corpuscular Hemoglobin 31.3 pg (27-33); Mean Corpuscular Volume 97.8 fl (85-98); Nucleated Red Blood Cells % 0 %; Platelet Count 183 10^3/cmm (157-399); Red Blood Count 4.18 10^6/uL (3.85-5.65); White Blood Count 15.85 10^3/uL (3.29-11.43)
--- NOTE | 2024-12-17 10:16 | XR_ITS ---
WS: [id number] Portable AP upright chest, 12/17/2024 Clinical Data: weakness, cp Comparison: Portable chest, 08/30/2024 Findings: No nodules, masses or effusions are seen. The heart is enlarged. The pulmonary vascularity is not increased. No pneumonia or pneumothorax is seen. There is an artificial aortic valve. Midline sternotomy sutures are present. There is a 2-lead cardiac pacemaker with the generator in the left axilla. There is a vascular stent in the left carotid artery. There is a calcification overlying the right greater tuberosity. Monitor leads are on the chest wall. XR/XR chest 1V portable [id number] Impression: 1. Cardiomegaly and atherosclerosis. 2. Artificial aortic valve and cardiac pacemaker.
--- NOTE | 2024-12-17 10:17 | XR_ITS ---
WS: [email or web address] Pelvis, AP view, both hips, 2 views each, 12/17/2024 Clinical Data: fall, left hip pain. with pelvis Comparison: Left hip, 12/29/2023 Findings: There is an impacted subcapital fracture of the right hip. The right femoral head remains in the acetabulum. The left hip arthroplasty remains in same position. No periprosthetic fractures or loosening is seen. There is heterotopic bone formation adjacent to the medial aspect of the proximal left femur unchanged. The adjacent pelvis remains intact. The SI joints and pubic symphysis are normal. The soft tissues are unremarkable. XR/XR hip BI m 5V wo/w pel* [id number] Impression: 1. Impacted subcapital fracture of the right hip. 2. Stable left hip arthroplasty.
[2024-12-17 10:21] LABS: Glucose Urine UA Negative (Normal); Nitrate Urine Negative (Negative); Specific Gravity, Urine 1.028 (1.005-1.030)
[2024-12-17 10:24] LABS: INR 2.37 (0.8-1.2); Partial Thromboplastin Time 31.4 SECONDS (23.9-36.7); Prothrombin Time 27.20 SECONDS (12.1-14.9)
[2024-12-17 10:26] LABS: Lactic Sepsis W/Reflex 3.8 mmol/L (0.5-2.2)
[2024-12-17 10:30] LABS: Reflex Lactate Order REFLEX LACTIC ORDERD
[2024-12-17 10:35] LABS: Troponin(5th) Baseline 53 ng/L (0-10)
[2024-12-17 10:39] LABS: Alanine Aminotransferase 44 U/L (0-33); Albumin Level 4.3 g/dL (3.5-5.2); Alkaline Phosphatase 75 U/L (35-105); Aspartate Amino Transferase 45 U/L (0-32); Blood Urea Nitrogen 28 mg/dL (8-23); Calcium 9.9 mg/dL (8.5-10.5); Carbon Dioxide 17 mmol/L (22-29); Chloride 101 mmol/L (98-107); Creatinine Clr Calc Pharmacy 34.6788; Globulin 2.7 g/dL (1.3-4.6); Glucose 153 mg/dL (65-115); NT Pro B Type Natriuretic Pept 8827 pg/mL (0-450); Osmolality Calculated 291 mOsm/kg (285-295); Sodium 136 mmol/L (136-145); Total Protein 7.0 g/dL (6.6-8.7)
[2024-12-17 10:43] LABS: Anion Gap 24.2 (5-19); Potassium 6.2 mmol/L (3.5-5.1)
[2024-12-17 10:48] LABS: UA Slide Review UA Slide Review Perf
--- NOTE | 2024-12-17 11:33 | ECG_ITS ---
[facility] Date: 2024-12-17 Pat Name: Jennifer You Department: Room: Gender: Female Real Estate Sales Manager: : 1945 Requested By: Denita Garcia Order Number: [id number] Yarelis MD: Phan Steward M.D. Measurements Intervals Struthers Rate: 92 P: 0 ME: 0 QRS: 44 QRSD: 107 T: 30 QT: 352 QTc: 436 Interpretive Statements ATRIAL FIBRILLATION INCOMPLETE RIGHT BUNDLE BRANCH BLOCK [90+ ms QRS DURATION, TERMINAL R IN V1/V2, 40+ ms S IN I/aVL/V4/V5/V6] SEPTAL MYOCARDIAL INFARCTION , PROBABLY OLD [40+ ms Q WAVE IN V1/V2] Compared to ECG 12/17/2024 09:36:46 No significant changes Electronically Signed On 12-17-2024 20:31:02 CDT by Phan Steward M.D. [email or web address]
[2024-12-17 12:02] LABS: Troponin 5 2HR 54.76 ng/L (0-10); Troponin 5 2HR Delta 1.76 ABS# (0-10)
[2024-12-17 12:04] LABS: Lactic Acid level (Lactate) 2.7 mmol/L (0.5-2.2)
--- NOTE | 2024-12-17 12:30 | USCV_ITS ---
Jennifer You Age: 79 Gender: F : 1945 Exam Date: 12/17/2024 12:53 Ordering Phys: Leon Hillman MD Technologist: Exam Location: [facility] [place] Indication: hx of ao pros [facility] BP: 136 / 86 HR: 80 Rhythm: Sinus Technical Quality: Adequate MEASUREMENTS (Male / Female) Normal Values 2D ECHO LV Diastolic Diameter PLAX 4.3 cm 4.2 - 5.9 / 3.9 - 5.3 cm IVS Diastolic Thickness 1.2 cm 0.6 - 1.0 / 0.6 - 0.9 cm IVS Systolic Thickness 1.3 cm LVPW Diastolic Thickness 0.9 cm 0.6 - 1.0 / 0.6 - 0.9 cm LVPW Systolic Thickness 1.4 cm LVOT Diameter 2.0 cm LV Ejection Fraction 2D Teich 70.5 % LV Ejection Fraction MOD 4C 72.7 % LV Ejection Fraction MOD 2C 63.6 % LV Ejection Fraction 2C AL 64.6 % LA Diameter 4.1 cm RA Systolic Volume 4C AL 48.8 ml RA Systolic Volume 4C MOD 47.4 ml Aorta at Sinotubular Diameter 2.2 cm IVC Diameter 1.7 cm M-MODE LA Ao Ratio MM 1.7 AV Cusp Separation MM 0.9 cm DOPPLER AV Peak Velocity 210.0 cm/s LVOT Peak Velocity 116.0 cm/s AV Area Cont Eq vti 2.8 cm squared AV Area Cont Eq pk 1.8 cm squared MV Area PHT 4.8 cm squared Mitral E to A Ratio 2.0 TR Peak Velocity 347.0 cm/s TR Peak Gradient 48.2 mmHg TV Peak E Velocity 146.0 cm/s PV Peak Velocity 111.0 cm/s FINDINGS Left Ventricle Normal left ventricular size and systolic function, EF 55-60%. No regional wall motion abnormalities. Right Ventricle Grossly normal Right Atrium Normal in size Left Atrium Normal in size Mitral Valve Mild mitral annular calcification. Mild mitral valve regurgitation. Aortic Valve Mechanical aortic valve. No significant stenosis or regurgitation. Tricuspid Valve Mild to moderate tricuspid regurgitation. RVSP is 45-50mmHg. This is consistent with moderate pulmonary hypertension Pulmonic Valve Mild pulmonic regurgitation Pericardium Normal Aorta Normal in size IVC Appears to be normal CONCLUSIONS LV systolic function is normal with EF of 55-60% Mild mitral valve regurgitation. Mechanical aortic valve. No significant stenosis or regurgitation. Mild to moderate tricuspid regurgitation. Moderate pulmonary hypertension Mild pulmonic regurgitation Nelson Harvey MD (Electronically Signed) Final Date: 17 December 2024 13:54 S
--- NOTE | 2024-12-17 12:32 | PM.HP ---
Providers/Chief Complaint Primary Care Provider: Ruy Palacio MD Chief Complaint: chest pain - fall History of Present Illness Jennifer You is a 79 year old female with past medical history of mechanical aortic valve on Coumadin, hypertension, osteoporosis, hip fracture, multiple falls, UTI, Atrial fibrillation, carotid artery stent presents to the ER today after sustaining a mechanical fall earlier in the day. As per the daughter who is at bedside yesterday patient's spouse fell on her after which she started having elbow and neck pain. Patient has constipation alternating with diarrhea chronically. Today she started having diarrhea and had a bowel accident and while going to the bathroom she slipped after which she complained of hip pain. In the ER she was found to have right subcapital fracture of hip. Review of Systems General: Reports: 10 or more systems reviewed and unremarkable except in HPI and below Const: Denies: fever(s), chills, body aches, change in appetite, change in weight, malaise, night sweats, diaphoresis, change in sleep pattern, daytime sleepiness or snoring Eyes: Denies: change in vision, blurry vision, photophobia, eye discomfort or eye discharge ENMT: Denies: throat pain, enlarged tonsils, hoarseness, mouth pain, oral sores, dry mouth, tinnitus, nasal congestion or post nasal drip Card: Denies: chest pain, palpitations, irregular heart rhythm, edema, swelling of feet/ankles, lightheadedness, syncope, pre-syncope, dyspnea on exertion, orthopnea, leg pain with exertion or acrocyanosis Resp: Denies: dyspnea, productive cough, non-productive cough, wheezing, stridor, pain on inspiration, change in phlegm color, hemoptysis or chest congestion GI: Denies: abdominal pain, nausea, vomiting, hematemesis, coffee ground emesis, dysphagia, heartburn, diarrhea, constipation, bloating, GI cramping, change in bowel habits, pain on defecation, hematochezia or melena : Denies: flank pain, dysuria, urinary frequency, urinary urgency, urinary hesitancy, nocturia or hematuria Musc: Denies: neck pain, back pain, extremity pain, joint pain, joint swelling, joint redness, joint stiffness or limited range of motion Neuro: Denies: headache(s), numbness in extremities, weakness in extremities, sensory changes, lack of coordination, difficulty walking, frequent falls, dizziness, vertigo, confusion, Slurred speech present, difficulty communicating thoughts or seizure-like activity Psych: Denies: anxiety, depression, mood swings, panic attacks, hopelessness or irritability Endo: Denies: polyuria, polydipsia, tired all the time, cold intolerance, excessive sweating, flushing or heat intolerance Cristobal/Lymph: Denies: easy bruising or easy bleeding All/Imm: Denies: tongue swelling, facial swelling or acute wheezing Medications/Allergies Home Medications ?Medication ?Instructions ?Recorded ?Confirmed ?Last Taken ?Type multivitamin 1 tab PO DAILY 02/08/21 05/24/24 05/10/23 History sennosides 8.6 mg-docusate sodium 1 tab PO DAILY 02/08/21 05/24/24 05/10/23 History 50 mg tablet cholecalciferol (vitamin D3) 25 25 mcg PO DAILY 06/20/22 05/24/24 05/10/23 History mcg (1,000 unit) capsule cyanocobalamin (vitamin B-12) 2,500 mcg PO DAILY@1000 06/20/22 05/24/24 05/09/23 History 1,000 mcg tablet donepezil 5 mg tablet 5 mg PO DAILY 03/29/23 05/24/24 05/10/23 History nitroglycerin 0.4 mg sublingual 0.4 mg sublingual Q5M PRN Chest 05/03/23 05/24/24 Unknown History tablet (Nitrostat) Pain warfarin 2.5 mg tablet See Rx Instructions .Route 06/26/23 08/11/24 Unknown Rx .COMPLEX #30 tabs amlodipine 2.5 mg tablet 2.5 mg PO DAILY PRN Systolic BP 10/09/23 05/24/24 Unknown Rx >150 #30 tabs clobetasol 0.05 % topical cream 1 applic topical DAILY #30 grams 12/01/23 05/24/24 Unknown Rx cyclobenzaprine 10 mg tablet 10 mg PO TID PRN muscle spasm #60 12/29/23 05/24/24 Unknown Rx tabs spironolactone 25 mg tablet 25 mg PO DAILY #90 tabs 01/16/24 05/24/24 Unknown Rx clopidogrel 75 mg tablet (Plavix) 75 mg PO DAILY #90 tabs 03/25/24 05/24/24 Unknown Rx atorvastatin 40 mg tablet See Rx Instructions .Route 06/16/24 Unknown Rx .COMPLEX #30 tabs potassium chloride 20 mEq 20 meq PO BID@ #180 tabs 06/16/24 Unknown Rx tablet,extended release warfarin 4 mg tablet See Rx Instructions .Route 09/08/24 Unknown Rx .COMPLEX #90 tabs alendronate 70 mg tablet See Rx Instructions .Route 09/09/24 Unknown Rx .COMPLEX #4 tabs metoprolol tartrate 25 mg tablet 37.5 mg (1.5 x 25 mg) PO BID #270 09/09/24 Unknown Rx tabs warfarin 3 mg tablet See Rx Instructions .Route 09/09/24 Unknown Rx .COMPLEX #30 tabs furosemide 40 mg tablet 40 mg PO DAILY #90 tabs 10/18/24 Unknown Rx levothyroxine 175 mcg tablet 175 mcg PO DAILY #30 tabs 11/08/24 Unknown Rx hydrocodone 10 mg-acetaminophen 1 tab PO QID 30 days #120 tabs 12/09/24 Unknown Rx 325 mg tablet Allergies Allergy/AdvReac Type Severity Reaction Status Date / Time No Known Allergies Allergy Verified 08/30/24 18:06 PFSH Acute PFSH: Medical History (Updated 12/17/24 @ 14:28 by Leon Hillman MD) Periprosthetic fracture around internal prosthetic left hip joint, initial encounter Subcapital fracture of left hip Fall as cause of accidental injury at home as place of occurrence Chronic anticoagulation Pacemaker Chronic atrial fibrillation Patient has history of intermittent atrial fibrillation. History of common carotid artery stent placement Clinically stable Arthritis, lumbar spine Chronic lumbar radiculopathy Spinal stenosis, lumbar region without neurogenic claudication Encounter for long-term opiate analgesic use Depression Hypercholesterolemia Hypothyroidism Hypertension Atrial fibrillation Surgical History (Updated 12/17/24 @ 14:28 by Leon Hillman MD) History of left hip hemiarthroplasty Date of procedure: March 30, 2023. Surgeon: Dr. Leisa Arzola MD. Pre-op diagnosis: Left subcapital hip fracture, impacted and slightly angulated. Post-op diagnosis: Left subcapital hip fracture, impacted and slightly angulated Procedure done: Left bipolar hip arthroplasty Implants: [employer] total hip system with a size 49 mm universal head bipolar component with 28 mm inner diameter and a [place] 28 mm outer diameter +4 mm offset V40 LFIT Femoral head, and a size 6 Accolade II 127? neck angle hip stem History of back surgery History of permanent cardiac pacemaker placement Aortic valve replaced 2000. Mechanical H/O section History of appendectomy History of carpal tunnel surgery of right wrist History of carpal tunnel surgery of left wrist H/O aortic valve replacement History of bilateral carotid endarterectomy Family History Mother Dementia Father CAD (coronary artery disease) Denies family history of Diabetes Clotting disorder Chronic kidney disease (CKD) Suicide Anesthesia complication Bleeding disorder Lung disease Cancer Stroke Social History Smoking and tobacco/nicotine status: never used tobacco/nicotine Second hand smoke exposure: No Alcohol intake: never Substance/Drug Use: never Lives independently: Yes Household members: significant other Vitals/I&O/Wt Last Vital Signs Temp 98.8 F 12/17/24 09:57 Pulse 99 12/17/24 10:51 Resp 25 H 12/17/24 10:51 BP 91/69 12/17/24 10:51 Pulse Ox 93 12/17/24 10:51 O2 Del Method Nasal Cannula 12/17/24 10:51 O2 Flow Rate 2 12/17/24 10:51 Weight last 48 hrs Weight 58.967 kg Physical Exam Narrative: General: No acute distress, AO x3 HEENT: PERRLA, pupils bilaterally equal and reactive Chest: Normal vesicular breath sounds, no added sounds, equal good air entry bilaterally CVS: S1-S2 regular, no murmurs, no tachycardia, no gallops, no rubs Abdomen: Soft, nontender, no organomegaly, bowel sounds present Neuro: No focal deficits, no facial deformity, AO x3, power 5/5 in all limbs Data 12/17/24 09:49 12/17/24 09:49 Micro: Microbiology 12/17/24 10:00 Blood Culture - Preliminary Blood SPECIMEN COLLECTED 12/17/24 09:49 Blood Culture - Preliminary Blood SPECIMEN COLLECTED A&P Assessment and plan 1. Subcapital fracture of right hip: Orthopedic has been consulted from the ER. Plan for ORIF. Will monitor hemoglobin. Physical therapy postoperatively. Orthopedic team requesting INR to be below 1.8. Can reverse with 2.5 of IV vitamin K while patient remains on heparin drip. Repeat INR in AM. 2. H/O mechanical aortic valve replacement: Chronically on Coumadin. Goal INR 2-3 postoperatively. Check echocardiogram. While patient is perioperatively, we will hold Coumadin and start heparin drip. Check INR daily. 3. Acute kidney injury: Baseline creatinine normal. Currently 1.2. Most likely in setting of dehydration. Associated with hyperkalemia and metabolic acidosis. IV fluid with NS at 50 cc/h. Repeat BMP in AM. 4. Hyperkalemia: Potassium 6.2. Mild hemolysis. Kayexalate one-time. Repeat potassium in evening. 5. Essential hypertension: Goal blood pressure less than 140/90 mmHg. Blood pressure slightly soft currently. Hold off on antihypertensive. Will restart when needed. Continue with home dose of metoprolol. 6. Pulmonary hypertension: Oxygen supplementation keeping saturation over 90%. 7. Pacemaker: 8. Atrial fibrillation: Rate controlled. Telemetry. Continue with home dose of metoprolol. On heparin drip as above. 9. History of common carotid artery stent placement: Plan: Leukocytosis: Could be reactionary or from dehydration. UA negative for UTI. Chest x-ray negative for pneumonia. Therapy start on IV ceftriaxone for now. Monitor. If remains afebrile and leukocytosis resolves rapidly we will discontinue antibiotics. Patient having diarrhea at home. Check C. difficile. History of dementia: Continue with 10 mg of donepezil. Add Celexa. Hypothyroidism: Continue with home dose of levothyroxine. Check thyroid panel. Full code Cardiac diet SCD for DVT prophylaxis, heparin drip will be sufficient for DVT prophylaxis as well. Protonix OPD prophylaxis Discharge plan: Discussed in detail with patient and daughter at bedside. Daughter requesting transition to SNF. Case management alerted. PDMP PDMP Reviewed: Not Reviewed Attestations Medical Necessity Statement*: Admission for more than 2 midnights for management of right hip fracture requiring ORIF in a patient with history of mechanical aortic valve on chronic anticoagulation, KRISTY Coding Level of Care Code Acute Code for Chg Fwd Diagnoses Subcapital fracture of right hip S72.011A H/O mechanical aortic valve replacement Z95.2 Acute kidney injury N17.9 Hyperkalemia E87.5 Essential hypertension I10 Pulmonary hypertension I27.20 Pacemaker Z95.0 Atrial fibrillation I48.91 History of common carotid artery stent placement Z98.890; Z95.828
[2024-12-17 13:05] LABS: Procalcitonin 0.08 ng/mL (0-0.5)
[2024-12-17] MEDS: cefTRIAXone 1,000 mg SDV 1000 MG IVP (13:24)
--- NOTE | 2024-12-17 13:24 | PC.NURSE ---
this nurse, ED charge attempted timmons x3 times, sizes 16F, 12F, 8F; unsuccessful at this time
[2024-12-17] MEDS: heparin drip 25,000 UNIT/500 ML PREMIX 16 UNIT IV (13:38)
[2024-12-17 15:32] LABS: Troponin 5 6HR 56.33 ng/L (0-10); Troponin 5 6HR Delta 3.33 ng/L (0-12)
--- NOTE | 2024-12-17 15:33 | ECG_ITS ---
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 Measurements Intervals Mather Rate: 88 P: 0 OH: 0 QRS: -5 QRSD: 106 T: 7 QT: 356 QTc: 432 Interpretive Statements ATRIAL FIBRILLATION INCOMPLETE RIGHT BUNDLE BRANCH BLOCK [90+ ms QRS DURATION, TERMINAL R IN V1/V2, 40+ ms S IN I/aVL/V4/V5/V6] SEPTAL MYOCARDIAL INFARCTION , PROBABLY OLD [40+ ms Q WAVE IN V1/V2] Compared to ECG 12/17/2024 11:31:22 No significant changes Electronically Signed On 12-17-2024 20:27:42 CDT by Phan Steward M.D. [email or web address]
[2024-12-17 15:49] LABS: Iron 49 ug/dL (37-145); Thyroid Stimulating Hormone 6.45 uIU/mL (0.27-4.20); Total Iron Binding Capacity 341 mcg/dl; Unsaturated Iron Binding 292 ug/dL (112-347)
--- NOTE | 2024-12-17 16:00 | PM.CONSULT ---
Providers/Reason For Consult Consulting Physician/Specialty*: Oni Lundberg DO/orthopedic surgery Reason for Consult*: Right hip femoral neck fracture Requesting Physician: Dr. Hillman Attending Physician: Leon Hillman MD Primary Care Provider: Ruy Palacio MD History of Present Illness History of Present Illness Jennifer You is a 79 year old female sustained a mechanical fall onto her right hip was brought into the emergency department. She is found to have a right hip subcapital femoral neck fracture. This point in time internal medicine is admitted patient orthopedics was consulted for treatment evaluation recommendations. Patient ambulates at baseline.Family accompanying at bedside as well as I did speak with daughter's over the phone to update on patient's injury as well as treatment recommendations. Patient is on Coumadin and INR 2.37 today Review of Systems General: Reports: 10 or more systems reviewed and unremarkable except in HPI and below Medications/Allergies Home Medications ?Medication ?Instructions ?Recorded ?Confirmed ?Last Taken ?Type multivitamin 1 tab PO DAILY 02/08/21 12/17/24 12/16/24 History sennosides 8.6 mg-docusate sodium 1 tab PO DAILY 02/08/21 12/17/24 12/16/24 History 50 mg tablet cholecalciferol (vitamin D3) 25 25 mcg PO DAILY 06/20/22 12/17/24 12/16/24 History mcg (1,000 unit) capsule cyanocobalamin (vitamin B-12) 2,500 mcg PO DAILY@1000 06/20/22 12/17/24 12/16/24 10:00 History 1,000 mcg tablet spironolactone 25 mg tablet 25 mg PO DAILY #90 tabs 01/16/24 12/17/24 12/16/24 Rx clopidogrel 75 mg tablet (Plavix) 75 mg PO DAILY #90 tabs 03/25/24 12/17/24 12/16/24 Rx atorvastatin 40 mg tablet See Rx Instructions .Route 06/16/24 12/17/24 12/16/24 Rx .COMPLEX #30 tabs potassium chloride 20 mEq 20 meq PO BID@10,21 #180 tabs 06/16/24 12/17/24 12/16/24 Rx tablet,extended release warfarin 4 mg tablet See Rx Instructions .Route 09/08/24 12/17/24 12/16/24 Rx .COMPLEX #90 tabs alendronate 70 mg tablet See Rx Instructions .Route 09/09/24 12/17/24 12/16/24 Rx .COMPLEX #4 tabs metoprolol tartrate 25 mg tablet 37.5 mg (1.5 x 25 mg) PO BID #270 09/09/24 12/17/24 12/16/24 Rx tabs warfarin 3 mg tablet See Rx Instructions .Route 09/09/24 12/17/24 Unknown Rx .COMPLEX #30 tabs furosemide 40 mg tablet 40 mg PO DAILY #90 tabs 10/18/24 12/17/24 12/16/24 Rx levothyroxine 175 mcg tablet 175 mcg PO DAILY #30 tabs 11/08/24 12/17/24 12/16/24 Rx hydrocodone 10 mg-acetaminophen 1 tab PO QID 30 days #120 tabs 12/09/24 12/17/24 12/16/24 Rx 325 mg tablet Allergies Allergy/AdvReac Type Severity Reaction Status Date / Time No Known Allergies Allergy Verified 08/30/24 18:06 Current Medications Generic Name Dose Route Start Last Admin Trade Name Freq PRN Reason Stop Dose Admin Ceftriaxone Sodium 1,000 mg 12/17/24 12:45 12/17/24 13:24 Ceftriaxone 1,000 Mg Sdv IVP 1,000 mg Q24H ROSE Administration Protocol Sodium Chloride 1,000 mls @ 50 mls/hr 12/17/24 12:30 12/17/24 13:24 Sodium Chloride 0.9% IV 12/18/24 08:29 50 mls/hr .Q20H ROSE Administration Heparin Sodium/Sodium Chloride 25,000 unit in 500 mls @ 0 mls/hr 12/17/24 12:30 12/17/24 13:38 Heparin Drip IV 13.57 unit/kg/hr CONT ROSE 16 mls/hr Protocol Administration Per Protocol PFSH Acute PFSH: Medical History (Updated 12/17/24 @ 14:28 by Leon Hillman MD) Periprosthetic fracture around internal prosthetic left hip joint, initial encounter Subcapital fracture of left hip Fall as cause of accidental injury at home as place of occurrence Chronic anticoagulation Pacemaker Chronic atrial fibrillation Patient has history of intermittent atrial fibrillation. History of common carotid artery stent placement Clinically stable Arthritis, lumbar spine Chronic lumbar radiculopathy Spinal stenosis, lumbar region without neurogenic claudication Encounter for long-term opiate analgesic use Depression Hypercholesterolemia Hypothyroidism Hypertension Atrial fibrillation Surgical History (Updated 12/17/24 @ 14:28 by Leon Hillman MD) History of left hip hemiarthroplasty Date of procedure: March 30, 2023. Surgeon: Dr. Leisa Arzola MD. Pre-op diagnosis: Left subcapital hip fracture, impacted and slightly angulated. Post-op diagnosis: Left subcapital hip fracture, impacted and slightly angulated Procedure done: Left bipolar hip arthroplasty Implants: The [employer] total hip system with a size 49 mm universal head bipolar component with 28 mm inner diameter and a [place] 28 mm outer diameter +4 mm offset V40 LFIT Femoral head, and a size 6 Accolade II 127? neck angle hip stem History of back surgery History of permanent cardiac pacemaker placement Aortic valve replaced 2000. Mechanical H/O section History of appendectomy History of carpal tunnel surgery of right wrist History of carpal tunnel surgery of left wrist H/O aortic valve replacement History of bilateral carotid endarterectomy Family History Mother Dementia Father CAD (coronary artery disease) Denies family history of Diabetes Clotting disorder Chronic kidney disease (CKD) Suicide Anesthesia complication Bleeding disorder Lung disease Cancer Stroke Social History Smoking and tobacco/nicotine status: never used tobacco/nicotine Second hand smoke exposure: No Alcohol intake: never Substance/Drug Use: never Lives independently: Yes Household members: significant other Vitals/I&O/Wt Last Vital Signs Temp 97.9 F 12/17/24 14:50 Pulse 95 12/17/24 14:50 Resp 17 12/17/24 14:50 BP 169/77 12/17/24 14:50 Pulse Ox 98 12/17/24 14:59 O2 Del Method Nasal Cannula 12/17/24 14:59 O2 Flow Rate 2 12/17/24 14:59 Weight last 48 hrs Weight 132 lb 9.6 oz Weight 130 lb Physical Exam Narrative: Right hip examination: Examination of the right hip demonstrates patient has tenderness palpation of the right hip as well as mild pain with logroll examination she is unable to perform Stinchfield's examination secondary to pain. She is able to wiggle her toes plantarflex and dorsiflex ankle no significant clinical deformity appreciated as she does have fairly symmetrical leg lengths no shortening or hip external rotation appreciated. Secondary survey examination is unremarkable to the left lower extremity no tenderness to palpation about the left upper extremity. Patient does have tenderness to palpation about the right shoulder and right elbow. She is able to actively range her shoulder and elbow with no significant pain or discomfort Data 12/17/24 09:49 12/17/24 09:49 Micro: Microbiology 12/17/24 10:00 Blood Culture - Preliminary Blood SPECIMEN COLLECTED 12/17/24 09:49 Blood Culture - Preliminary Blood SPECIMEN COLLECTED Xray Ortho: Radiologist's impression: XR/XR hip BI m 5V wo/w pel* [id number] Impression: 1. Impacted subcapital fracture of the right hip. 2. Stable left hip arthroplasty. XR/XR elbow RT 2V [id number] IMPRESSION: No acute findings. XR/XR shoulder RT 1V [id number] IMPRESSION: Irregular linear lucency through the scapula seen on two views may be artifactual but a scapular fracture can not be excluded on this examination. Correlate clinically and if indicated a scapular radiograph may be obtained for further evaluation. CT/CT hip RT wo con* [id number] IMPRESSION: Impaction fracture of the right femoral neck. A&P Assessment and plan 1. Subcapital fracture of right hip: Plan: Orthopedics consulted Hospitalist admitted patient is primary Imaging reviewed? right?hip?femoral neck fracture valgus impacted X-rays reviewed?will get a CT scan of the right shoulder to rule out scapular fracture Labs reviewed Pain control Nonweightbearing right lower extremity May have a diet today N.p.o. at midnight Plan?to add on for surgery tomorrow for a right?hip closed reduction percutaneous screw fixation Case discussed with family at bedside as well as daughter's over the phone Patient INR 2.37 today goals of getting to 1.8 tomorrow currently getting vitamin K to reverse per primary team Patient at this point in time pleasant 79-year-old female sustained a ground-level fall to the right hip has a valgus impacted femoral neck fracture we talked about her treatment options in detail as far as nonoperative and operative invention CT scan was performed as well as imaging reviewed and this is in good alignment for cannulated screw fixation which we talked about this in detail as far as nonoperative cannulated screw fixation or hip hemiarthroplasty at this point in time through shared decision making with patient and family elected proceed with surgical intervention for right hip closed reduction percutaneous screw fixation. Risk of surgery include but not limited to make a better make it worse, injury to nerves vessels or tendons, infection, hardware failure or prominence, persistent hip pain, possible further surgery, acute blood loss anemia. Understanding risk of surgery patient family elected proceed with surgical intervention all question at this time. Will get her optimized and INR down before proceeding with surgical intervention tomorrow. PDMP PDMP Reviewed: Not Reviewed Coding Level of Care Code Acute Code for Chg Fwd Diagnoses Subcapital fracture of right hip S72.011A Time Spent (min) 50
[2024-12-17 16:40] LABS: Vitamin B12 > 2000 pg/mL (232-1245)
--- NOTE | 2024-12-17 16:48 | XRR_ITS ---
PROCEDURE INFORMATION: Exam: XR Right Shoulder Exam date and time: 12/17/2024 5:27 PM Age: 79 years old Clinical indication: Injury or trauma; Fall; Blunt trauma (contusions or hematomas); Shoulder; Right; Additional info: Pain post fall TECHNIQUE: Imaging protocol: Radiologic exam of the right shoulder. Views: 1 view. COMPARISON: CR XR chest 1V portable [id number] 12/17/2024 10:51 AM FINDINGS: Bones/joints: Amorphous calcifications low in the distal aspect of the rotator cuff. Irregular linear lucency through the scapula seen on two views may be artifactual but a scapular fracture can not be excluded on this examination. Correlate clinically and if indicated a scapular radiograph may be obtained for further evaluation. Soft tissues: Normal. XR/XR shoulder RT 1V [id number] IMPRESSION: Irregular linear lucency through the scapula seen on two views may be artifactual but a scapular fracture can not be excluded on this examination. Correlate clinically and if indicated a scapular radiograph may be obtained for further evaluation.
--- NOTE | 2024-12-17 16:48 | XRR_ITS ---
PROCEDURE INFORMATION: Exam: XR Right Elbow Exam date and time: 12/17/2024 5:27 PM Age: 79 years old Clinical indication: Injury or trauma; Fall; Blunt trauma (contusions or hematomas); Elbow; Right; Additional info: Pain post fall TECHNIQUE: Imaging protocol: Radiologic exam of the right elbow. Views: 1 or 2 views. COMPARISON: CR (CHEST, ) 12/17/2024 5:27 PM FINDINGS: Bones/joints: Normal. Soft tissues: Normal. XR/XR elbow RT 2V [id number] IMPRESSION: No acute findings.
--- NOTE | 2024-12-17 17:02 | CTR_ITS ---
PROCEDURE INFORMATION: Exam: CT Right Lower Extremity Without Contrast, Hip Exam date and time: 12/17/2024 5:19 PM Age: 79 years old Clinical indication: Injury or trauma; Fall; Fracture, traumatic; Closed fracture; Hip; Right; Additional info: Right hip FX TECHNIQUE: Imaging protocol: CT of the right lower extremity without contrast was performed. Exam focused on the hip. Radiation optimization: All CT scans at this facility use at least one of these dose optimization techniques: automated exposure control; mA and/or kV adjustment per patient size (includes targeted exams where dose is matched to clinical indication); or iterative reconstruction. COMPARISON: CR XR hip BI m 5V wo/w pel* [id number] 12/17/2024 10:37 AM RADIATION DOSE METRICS: Total DLP (mGy-cm): 272.21 FINDINGS: Bones/joints: Impaction fracture of the right femoral neck. Soft tissues: Small soft tissue hematoma in the subcutaneous fat lateral to the right greater tuberosity. Urinary bladder: There is a Juarez catheter in the bladder. The bladder is decompressed. CT/CT hip RT wo con* [id number] IMPRESSION: Impaction fracture of the right femoral neck.
[2024-12-17 17:22] LABS: Estmated Average Glucose 114; Hemoglobin A1C 5.6 % (4.0-6.0)
[2024-12-17] MEDS: phytonadione (ADULT) 2.5 MG in sodium chloride 0.9% 50 ML 153 MG IV (18:30)
[2024-12-17] MEDS: HYDROcodone-acetaminophen 5-325 mg Tablet 1 TAB PO ×2 (18:30→21:48)
[2024-12-17] MEDS: pantoprazole 40 mg SDV IVP (18:30)
--- NOTE | 2024-12-17 19:10 | CTR_ITS ---
PROCEDURE INFORMATION: Exam: CT Right Upper Extremity Without Contrast, Shoulder Exam date and time: 12/17/2024 9:16 PM Age: 79 years old Clinical indication: Injury or trauma; Fall; Blunt trauma (contusions or hematomas); Right; Scapular lucency noted on shoulder xray unable to exclude fracture. ; Additional info: Rule out scapular fracture TECHNIQUE: Imaging protocol: Computed tomography of the right upper extremity without contrast. Exam focused on the shoulder. Radiation optimization: All CT scans at this facility use at least one of these dose optimization techniques: automated exposure control; mA and/or kV adjustment per patient size (includes targeted exams where dose is matched to clinical indication); or iterative reconstruction. COMPARISON: CR (CHEST, ) 12/17/2024 5:27 PM RADIATION DOSE METRICS: Total DLP (mGy-cm): 474.61 FINDINGS: Bones/joints: Amorphous calcification along the distal aspect of the rotator cuff just proximal to the insertion on the right humeral head. No scapular fracture. Soft tissues: Normal. CT/CT shoulder RT wo con* [id number] IMPRESSION: No scapular fracture.
[2024-12-17 22:12] LABS: Partial Thromboplastin Time 209.4 SECONDS (23.9-36.7)
[2024-12-17 22:56] LABS: Partial Thromboplastin Time 159.3 SECONDS (23.9-36.7)
--- NOTE | 2024-12-17 23:02 | PC.NURSE ---
[id number] Heparin tc turned off per Dr Ramos orders PTT ordered for [id number]
[2024-12-17 23:34] LABS: Potassium 4.0 mmol/L (3.5-5.1)
[2024-12-18] VITALS (21 sets, daily range): BP systolic 100–172; BP diastolic 65–120; PULSE 81–996; RESP 12–18; TEMP 36.4–37.3; O2SAT 90–100
[2024-12-18 02:45] LABS: Hematocrit 34.1 % (36-47); Hemoglobin 11.40 g/dL (11.27-16.99); Mean Corpuscular HGB Conc 33.4 g/dL (30-55); Mean Corpuscular Hemoglobin 31.5 pg (27-33); Mean Corpuscular Volume 94.2 fl (85-98); Nucleated Red Blood Cells % 0 %; Platelet Count 149 10^3/cmm (157-399); Red Blood Count 3.62 10^6/uL (3.85-5.65); White Blood Count 12.78 10^3/uL (3.29-11.43)
[2024-12-18 02:59] LABS: Partial Thromboplastin Time 39.9 SECONDS (23.9-36.7)
[2024-12-18 03:06] LABS: INR 1.73 (0.8-1.2); Prothrombin Time 21.40 SECONDS (12.1-14.9)
[2024-12-18 03:09] LABS: Alanine Aminotransferase 29 U/L (0-33); Albumin Level 3.5 g/dL (3.5-5.2); Alkaline Phosphatase 59 U/L (35-105); Anion Gap 18.0 (5-19); Aspartate Amino Transferase 28 U/L (0-32); Blood Urea Nitrogen 29 mg/dL (8-23); Calcium 8.8 mg/dL (8.5-10.5); Carbon Dioxide 24 mmol/L (22-29); Chloride 107 mmol/L (98-107); Cholesterol 102 mg/dL (0-200); Globulin 2.5 g/dL (1.3-4.6); Glucose 110 mg/dL (65-115); HDL Cholesterol 56 mg/dL (60-100); Magnesium 2.0 mg/dL (1.7-2.3); Osmolality Calculated 306 mOsm/kg (285-295); Potassium 4.0 mmol/L (3.5-5.1); Sodium 145 mmol/L (136-145); Total Protein 6.0 g/dL (6.6-8.7); Triglycerides 71 mg/dL (0-150)
[2024-12-18 03:15] LABS: Creatinine Clr Calc Pharmacy 41.9541; Procalcitonin 0.09 ng/mL (0-0.5)
[2024-12-18 04:14] LABS: Free T4 Free Thyroxine 1.53 ng/dL (0.82-1.77)
[2024-12-18 06:23] LABS: Partial Thromboplastin Time 31.1 SECONDS (23.9-36.7)
--- NOTE | 2024-12-18 07:32 | ANES.PREANE2 ---
Pre-Anesthetic Assessment Height/Weight: Height 5 ft 5 in Weight 132 lb Temp Pulse Resp BP Pulse Ox O2 Del Method O2 Flow Rate 98.8 F 996 H 12 100/65 93 Room Air 2 12/18/24 05:44 12/18/24 05:44 12/18/24 05:44 12/18/24 05:44 12/18/24 05:44 12/17/24 20:00 12/17/24 14:59 Preop Diagnosis: Right hip femoral neck fracture, valgus impacted Operation Date: 12/18/24 08:10 Proposed Procedures p Closed Reduction Percuaneous Pin Finger/ right hip/ [place](Right) - Oni Tamika, DO Was Beta Patrick taken within 24 hours: Yes Was Clonidine taken within 24 hours: N/A Social No alcohol and No tobacco Exam alert, oriented x 3 and clear to auscultation bilaterally Airway Submandibular: within normal limits Cervical ROM: within normal limits Mallampati: Class III Comments: Comments: Smaller mouth opening, poor dentition but denies any loose Anesthetic Plan ASA status: 4 Anesthesia: General Other: No prior issues with anesthesia, patient presented to the hospital after experiencing a fall yesterday. N.p.o. since yesterday History of chronic A-fib on Coumadin for anticoagulation. INR 2.37 upon admission. Was given vitamin K. INR 1.7 this a.m. patient also took Plavix on Prior carotid artery stenosis, s/p stent Mechanical aortic valve replacement Hypothyroidism on Synthroid Echo performed yesterday showing EF of 55 to 60%. Moderate tricuspid regurg with RVSP 45-50 mmHg EKG showing A-fib with incomplete RBBB Plan for GA Medications/Allergies Home Medications ?Medication ?Instructions ?Recorded ?Confirmed ?Last Taken ?Type multivitamin 1 tab PO DAILY 02/08/21 12/17/24 12/16/24 History sennosides 8.6 mg-docusate sodium 1 tab PO DAILY 02/08/21 12/17/24 12/16/24 History 50 mg tablet cholecalciferol (vitamin D3) 25 25 mcg PO DAILY 06/20/22 12/17/24 12/16/24 History mcg (1,000 unit) capsule cyanocobalamin (vitamin B-12) 2,500 mcg PO DAILY@1000 06/20/22 12/17/24 12/16/24 10:00 History 1,000 mcg tablet spironolactone 25 mg tablet 25 mg PO DAILY #90 tabs 01/16/24 12/17/24 12/16/24 Rx clopidogrel 75 mg tablet (Plavix) 75 mg PO DAILY #90 tabs 03/25/24 12/17/24 12/16/24 Rx atorvastatin 40 mg tablet See Rx Instructions .Route 06/16/24 12/17/24 12/16/24 Rx .COMPLEX #30 tabs potassium chloride 20 mEq 20 meq PO BID@10,21 #180 tabs 06/16/24 12/17/24 12/16/24 Rx tablet,extended release warfarin 4 mg tablet See Rx Instructions .Route 09/08/24 12/17/24 12/16/24 Rx .COMPLEX #90 tabs alendronate 70 mg tablet See Rx Instructions .Route 09/09/24 12/17/24 12/16/24 Rx .COMPLEX #4 tabs metoprolol tartrate 25 mg tablet 37.5 mg (1.5 x 25 mg) PO BID #270 09/09/24 12/17/24 12/16/24 Rx tabs warfarin 3 mg tablet See Rx Instructions .Route 09/09/24 12/17/24 Unknown Rx .COMPLEX #30 tabs furosemide 40 mg tablet 40 mg PO DAILY #90 tabs 10/18/24 12/17/24 12/16/24 Rx levothyroxine 175 mcg tablet 175 mcg PO DAILY #30 tabs 11/08/24 12/17/24 12/16/24 Rx hydrocodone 10 mg-acetaminophen 1 tab PO QID 30 days #120 tabs 12/09/24 12/17/24 12/16/24 Rx 325 mg tablet Allergies Allergy/AdvReac Type Severity Reaction Status Date / Time No Known Allergies Allergy Verified 08/30/24 18:06 Current Medications Generic Name Dose Route Start Last Admin Trade Name Freq PRN Reason Stop Dose Admin Hydrocodone Bitart/Acetaminophen 1 tab 12/17/24 18:00 12/17/24 18:30 Hydrocodone-Acetaminophen 5-325 Mg Tablet PO 1 tab BID ROSE Administration Hydrocodone Bitart/Acetaminophen 1 tab 12/17/24 15:20 12/17/24 21:48 Hydrocodone-Acetaminophen 5-325 Mg Tablet PO 1 tab Q8H PRN Administration MODERATE PAIN Atorvastatin Calcium 40 mg 12/17/24 21:00 12/17/24 21:42 Atorvastatin 40 Mg Tablet PO 40 mg BEDTIME ROSE Administration Ceftriaxone Sodium 1,000 mg 12/17/24 12:45 12/17/24 13:24 Ceftriaxone 1,000 Mg Sdv IVP 1,000 mg Q24H ROSE Administration Protocol Docusate Sodium 100 mg 12/17/24 18:00 12/17/24 18:30 Docusate Sodium 100 Mg Capsule PO 100 mg BID ROSE Administration Sodium Chloride 1,000 mls @ 50 mls/hr 12/17/24 12:30 12/17/24 15:00 Sodium Chloride 0.9% IV 12/18/24 08:29 0 mls/hr .Q20H ROSE Infusion Heparin Sodium/Sodium Chloride 25,000 unit in 500 mls @ 0 mls/hr 12/17/24 12:30 12/17/24 22:14 Heparin Drip IV 0 unit/kg/hr CONT ROSE 0 mls/hr Protocol Titration Per Protocol Metoprolol Tartrate 37.5 mg 12/17/24 18:00 12/17/24 18:30 Metoprolol Tartrate 25 Mg Tablet PO 37.5 mg BID ROSE Administration Pantoprazole Sodium 40 mg 12/17/24 14:50 12/17/24 18:30 Pantoprazole 40 Mg Sdv IVP 40 mg Q24H ROSE Administration PFS Anesthesia Medical History (Updated 12/17/24 @ 14:28 by Leon Hillman MD) Periprosthetic fracture around internal prosthetic left hip joint, initial encounter Subcapital fracture of left hip Fall as cause of accidental injury at home as place of occurrence Chronic anticoagulation Pacemaker Chronic atrial fibrillation Patient has history of intermittent atrial fibrillation. History of common carotid artery stent placement Clinically stable Arthritis, lumbar spine Chronic lumbar radiculopathy Spinal stenosis, lumbar region without neurogenic claudication Encounter for long-term opiate analgesic use Depression Hypercholesterolemia Hypothyroidism Hypertension Atrial fibrillation Surgical History (Updated 12/17/24 @ 14:28 by Leon Hillman MD) History of left hip hemiarthroplasty Date of procedure: March 30, 2023. Surgeon: Dr. Leisa Arzola MD. Pre-op diagnosis: Left subcapital hip fracture, impacted and slightly angulated. Post-op diagnosis: Left subcapital hip fracture, impacted and slightly angulated Procedure done: Left bipolar hip arthroplasty Implants: The [place] total hip system with a size 49 mm universal head bipolar component with 28 mm inner diameter and a Maria Elena 28 mm outer diameter +4 mm offset V40 LFIT Femoral head, and a size 6 Accolade II 127? neck angle hip stem History of back surgery History of permanent cardiac pacemaker placement Aortic valve replaced 2000. Mechanical H/O section History of appendectomy History of carpal tunnel surgery of right wrist History of carpal tunnel surgery of left wrist H/O aortic valve replacement History of bilateral carotid endarterectomy Family History Mother Dementia Father CAD (coronary artery disease) Denies family history of Diabetes Clotting disorder Chronic kidney disease (CKD) Suicide Anesthesia complication Bleeding disorder Lung disease Cancer Stroke Social History Smoking and tobacco/nicotine status: never used tobacco/nicotine Second hand smoke exposure: No Alcohol intake: never Substance/Drug Use: never Lives independently: Yes Household members: significant other Data Anesthesia 12/18/24 02:27 12/18/24 02:27 Short CBC 12/17/24 12/18/24 Range/Units 09:49 02:27 WBC 15.85 H 12.78 H (3.29-11.43) 10^3/uL Hgb 13.10 11.40 (11.27-16.99) g/dL Hct 40.9 34.1 L (36-47) % MCV 97.8 94.2 (85-98) fl Plt Count 183 149 L (157-399) 10^3/cmm Neut % (Auto) 85.8 82.5 % Neut # (Auto) 13.60 H 10.53 H (1.8-7.7) 10^3/uL BMP 12/17/24 12/17/24 12/17/24 09:49 20:12 22:22 Sodium 136 Potassium 6.2 H Cancelled 4.0 Chloride 101 Carbon Dioxide 17 L BUN 28 H Creatinine 1.2 H Glucose 153 H Calcium 9.9 12/18/24 02:27 Sodium 145 Potassium 4.0 Chloride 107 Carbon Dioxide 24 BUN 29 H Creatinine 1.0 H Glucose 110 Calcium 8.8 Cardiac Enzymes 12/17/24 12/17/2412/17/25 Range/Units 09:49 11:39 15:00 Creatine Kinase 62 (26-192) U/L Troponin T Baseline 53 H (0-10) ng/L Troponin T 120 Minute 54.76 H (0-10) ng/L Delta Troponin T 1.76 (0-10) ABS# Troponin T Hi Sens 6Hr 56.33 H (0-10) ng/L Troponin T Hi Sens 6Hr Delta 3.33 (0-12) ng/L NT-Pro-B Natriuret Pep 8827 H (0-450) pg/mL Liver Function 12/17/24 12/18/24 Range/Units 09:49 02:27 Total Bilirubin 1.2 1.0 (0.15-1.2) mg/dL AST 45 H 28 (0-32) U/L ALT 44 H 29 (0-33) U/L Alkaline Phosphatase 75 59 (35-105) U/L Albumin 4.3 3.5 (3.5-5.2) g/dL Urine 12/17/24 Range/Units 09:49 Urine Color Dark yellow A (Yellow) Urine Appearance Cloudy A (CLEAR) Urine pH 5.0 (5-7) Ur Specific Calvin 1.028 (1.005-1.030) Urine Protein 3+ A (Negative) Urine Glucose (UA) Negative (Normal) Urine Ketones Trace (Negative) Urine Nitrate Negative (Negative) Urine Bilirubin 1+ H (Negative) Ur Leukocyte Esterase 1+ A (Negative) Urine RBC 6-10 (0-2) /hpf Urine WBC 0-5 (0-5) /hpf Blood Bank 12/18/24 05:53 Blood Type A Positive Rho(D) Type Rh positive Antibody Screen Negative Coags 12/17/24 12/17/24 12/17/24 09:49 20:18 21:04 PT 27.20 H INR 2.37 H APTT 31.4 Cancelled 209.4 H* D 12/17/24 12/18/24 12/18/24 22:22 02:27 05:53 PT 21.40 H INR 1.73 H APTT 159.3 H* 39.9 H D 31.1 Microbiology 12/17/24 10:00 Blood Culture - Preliminary Blood SPECIMEN COLLECTED 12/17/24 09:49 Blood Culture - Preliminary Blood SPECIMEN COLLECTED Cardiac Studies: Echocardiogram 12/17/24 Echocardiogram Ultrasound 04/15/19 Sestamibi Stress Test (Cardiology) 04/16/19 Cardiac Event Monitor 03/21/20
--- NOTE | 2024-12-18 07:42 | PC.NURSE ---
Patient off the floor at 0730 for surgery.
--- NOTE | 2024-12-18 08:00 | W.PM.OPSUD ---
Surgery/Procedure H&P Update DATE OF PROCEDURE: December 18, 2024 DATE H&P PERFORMED: 12/17/24 H&P UPDATE INFORMATION: I have reviewed H&P completed within last 30 days, I have examined patient prior to procedure and No changes to prior documentation CHANGES TO PREVIOUS DOCUMENTATION: Patient's INR is down to 1.73 today. We talked about options with patient and family and through shared decision making agreed to proceed with right hip close reduction and percutaneous screw fixation. Patient and family understand the enzymes procedure risk benefits complication alternatives of surgery. Understanding risk of surgery they like to proceed with surgical invention all questions answered at this time. Consent reviewed and signed with patient. PREOP DIAGNOSIS: Right hip femoral neck fracture, valgus impacted PRIMARY INDICATION FOR PROCEDURE: Valgus impacted right hip femoral neck fracture PLANNED PROCEDURE: Operation Date: 12/18/24 08:10 Proposed Procedures p Closed Reduction Percuaneous Pin Finger/ right hip/ [place](Right) - Oni Lundberg DO
[2024-12-18] MEDS: ceFAZolin 2,000 mg SDV 2000 MG IVP (08:20)
[2024-12-18] MEDS: tranexamic acid 1,000 MG/100 ML PREMIX 600 MG IV (08:30)
--- NOTE | 2024-12-18 09:39 | XR_ITS ---
WS: [id number] Right hip, C-arm fluoroscopy views, 12/18/2024 Clinical Data: RT HIP PINNING; OR PICS Comparison: Right hip, 12/17/2024 Findings: Dr. Lundberg reduced the subcapital fracture of the right hip with orthopedic pins. XR/XR hip RT 2-3V wo/w pel* [id number] Impression: Internal fixation of right hip subcapital fracture.
--- NOTE | 2024-12-18 09:57 | W.PM.BPON ---
Date of Procedure: 12/18/24 Surgeon: Oni Lundberg DO Control Room Helper(s): Ruy Lundberg PA-C Procedure(s) performed: right hip closed reduction percutaneous screw fixation Findings of the procedure(s): Patient underwent procedure as planned without issues or complications taken recovery in stable condition Estimated blood loss: 40 mL Specimen(s) removed: None Post-operative diagnosis: Right hip valgus impacted femoral neck fracture
--- NOTE | 2024-12-18 09:59 | PM.OP ---
Operative Report Date of procedure: December 18, 2024 Surgeon: Oni Lundberg DO Project Management Professional: Ruy Lundberg PA-C: PA was necessary for assistance in this case with leg positioning assistance with retraction as well as assistance with fracture fixation and implantation assistance in wound closure and dressing application. Procedure: Preoperative diagnosis: Right hip valgus impacted femoral neck fracture post-op diagnosis: Same Procedure done: Right hip?femoral neck closed reduction and percutaneous screw fixation Implants: 6.5 mm x 85?mm Fully- threaded?cannulated?screw 6.5 mm x 80?mm fully-threaded cannulated?screw 6.5 mm x 75?mm fully-threaded cannulated?screw 1?washers?wasted Surgeon: Oni Lundberg DO Anesthesia: General Estimated blood loss: 40 mL IV fluids: 800 mL Urine output: See anesthesia record Complications: None Findings: See operative report narrative Condition: stable Disposition: floor Brief History: Patient is a 79-year-old female who sustained a ground-level fall had a valgus impacted right femoral neck in?emergency department. Patient?admitted by hospitalist team medically optimized, orthopedics was consulted For treatment recommendations.?Patient has been medically optimized.? We talked about treatment options given this after CT scan demonstrated an intact anterior cortex in good alignment I feel this would be amendable for closed reduction and percutaneous screw fixation.? We talked about this in detail as far as risk benefits complication alternatives of surgery understands even potential for possible hardware failure and further surgery.? Understand risk of surgery patient and family agree to proceed with surgical intervention all questions answered. Procedure: Patient seen and evaluated?in the preoperative holding area.? Consent was reviewed and signed with patient.? Operative extremity was marked.? Patient was then seen evaluated by anesthesia once cleared for surgery patient was taken back to the operative suite.? Patient was transported onto the [place] bed after undergoing general anesthetic.? Once properly anesthetized she was then placed onto the [place] bed placed in traction boots.? All bony prominences well-padded patient was appropriate secured to the bed.? Final timeout was performed.? Patient received appropriate preoperative antibiotics as well as preoperative TXA. Prior to prepping and draping, the fractured?hip?was then inspected this was found to be on the traction table to be in excellent alignment position amenable for close reduction percutaneous pinning.? At this point time the right hip?was then prepped and draped in standard orthopedic fashion. I started off with small percutaneous incision after marking the center center position of the femoral neck I started with my inferior and central calcar wire.? Guidepin was then advanced along the inferior border of the neck and advanced to appropriate position into the femoral head across the fracture site.? This was confirmed in multiple orthogonal images to be in appropriate position.? Next I plan for a inverted triangle configuration as result I then subsequently placed next my superior and anterior guidepin in appropriate position and then in parallel fashion placed my posterior and superior guidepin in appropriate position.? This was confirmed to have an excellent inverted triangle positioning on AP and lateral.? I then advanced the wires to appropriate length and then subsequently measured.? I then utilized the cannulated drill bit, Drilled, measured and then subsequently advanced the fully-threaded 6.5 mm x 85?mm cannulated?screw?and advanced this with excellent fixation on the inferior and central calcar?screw. ? Next attention turned to the?superior and anterior?pin,?I then subsequently used the cannulated drill bit And subsequently drilled,?measured initially attempted to place an 80 mm partially-threaded with a washer however this did not have good fixation as a result washer and screw removed and this was switched out for a 75 mm x 6.5 mm fully threaded cannulated screw which was advanced and had solid fixation.?? Lastly we did the?Superior and posterior pin,?utilized the cannulated drill bit and subsequently drilled, measured and placed a fully-threaded 6.5 mm x 80?mm fully-threaded cannulated?screw.? All 3?screws had excellent fixation and were advanced appropriate depth. At the end the procedure I backed the wires out to have appropriate visualization of the tips of the?screws.? I then unlocked the traction boot and took the?hip?through range of motion with live fluoroscopic imaging utilizing approach and withdrawal technique and no?screws penetrated the joint and fracture site was stable.? This completed the procedure. Guidepins were then subsequently removed wound was then thoroughly irrigated and closed with daryl for the small percutaneous sites.? This was then covered with Silverlon dressing.? Patient was then awake from anesthesia and taken to PACU in stable condition.? Patient tolerated procedure without any issues Disposition: Patient taken to PACU in stable condition recovering well.? Will be partial weight-bear 30 to 50% postoperatively.? Dressing on in place will be changed as needed.? DVT prophylaxis.? Pain control.? PT/OT.? Postoperative TXA. Postoperative antibiotics.?Patient will return to the floor.? Internal medicine on board as primary.?
--- NOTE | 2024-12-18 10:18 | PM.PACU ---
PACU note Narrative: Patient is a 79-year-old female with just underwent a right hip CRPP. Pt transferred to PACU in stable condition. Dressing is dry. pt is awake and alert. pt can wiggle toes and plantarflex and dorsiflex foot. Distal pulses are palpable toes are warm and well-perfused. Cap refill is normal and under 2 seconds. Sensation to foot is intact. Pain is controlled. Exam: awake Disposition: discharged
--- NOTE | 2024-12-18 10:19 | XRR_ITS ---
PROCEDURE INFORMATION: Exam: XR Right Hip Exam date and time: 12/18/2024 10:49 AM Age: 79 years old Clinical indication: Screening exam; Prior surgery; Surgery date: Post-operative (0-2 days); Surgery type: Post op RT hip crpp TECHNIQUE: Imaging protocol: Radiologic exam of the right hip. Views: 1 view hip with pelvis when performed. COMPARISON: OT XR hip RT 2-3V wo/w pel* [id number] 12/18/2024 8:23 AM FINDINGS: Bones/joints: Surgical screws crossing the right femoral neck fracture are seen. No joint dislocation. Soft tissues: Unremarkable. Vasculature: Calcified atherosclerotic changes are seen. XR/XR hip RT 2-3V wo/w pel* [id number] IMPRESSION: Surgical screws crossing the right femoral neck fracture are seen.
--- NOTE | 2024-12-18 10:44 | ANE.PACU2 ---
Inpatient post-anesthesia follow up: Airway intact: Yes Vital signs: Temperature 98.7 F Pulse Rate 109 Respiratory Rate 14 Blood Pressure 140/73 Pulse Oximetry 96 Oxygen Delivery Me thod Nasal Cannula Oxygen Flow Rate 2 Fraction of Inspir ed Oxygen Hydration adequate: Yes Nausea and vomiting: No Pain level: 1 Mental status: Baseline
--- NOTE | 2024-12-18 10:47 | PC.OT ---
OT evaluation orders received and patient on hold due to having surgery today; will attempt again at a later time.
[2024-12-18] MEDS: HYDROcodone-acetaminophen 5-325 mg Tablet 1 TAB PO ×2 (10:51→17:26)
[2024-12-18] MEDS: heparin drip 25,000 UNIT/500 ML PREMIX 10 UNIT IV (11:38)
[2024-12-18] MEDS: cefTRIAXone 1,000 mg SDV 1000 MG IVP (11:54)
--- NOTE | 2024-12-18 12:14 | PC.CHAP ---
Pastoral Care Encounter/Spiritual Assessment Type of Contact [] Declined licensed plumber visit [] Patient/Family/Request visit [] Outpatient visit [] Follow-up visit [] Physician referral [] Code/Alert [x] Routine visit [] Staff referral [] Actively dying [] Patient sleeping [] Family support [] [] Out of room [] Palliative care [] [] Receiving care in room [] Pre-surgical visit [] Trauma [] Long length of stay [] ICU visit [] Other: Relational/Emotional Strength [x] Patient feels connected with others/family/visitors/staff [] Distress [] Loneliness/isolation [] Abandonment Spirituality of Patient [x] Person of Cecilia [] Attends Mormonism of their Cecilia [] Believes in Prayer [] Reads Bible or Alevism materials [] There are Spiritual issues to be addressed Pin Sorter And Bagger Interventions [x] Prayer [] Active listening [] Non-anxious presence [] Spiritual/emotional support [] Crisis/trauma care [] Spiritual counseling [] Bereavement support [] Provided bereavement packet [] Provided Bible/devotional materials [] Provided toy/stuffed animal, coloring book to patient or family member [] Provided Communion [] Anointing/Lacey [] Salvation [] Completed spiritual assessment [] Other: Impact on Illness or Injury [] Angry [] Fearful [] Anxious [] Often cries [] Exhaustion [] Unable to work [] Unable to attend quaker [] Unable to walk/stand [] Unable to read [] Unable to drive [] Unable to eat/drink [] Unable to sleep [] Unable to be with family [] Patient intubated [] Other: Summary Time spent with patient
[2024-12-18] MEDS: ondansetron 2 mg/ML SDV 2 mL 4 MG IVP (12:19)
[2024-12-18] MEDS: chlorhexidine gluconate 0.12% Btl 473 mL 30 ML MUCOUS MEM ×3 (12:21→21:46)
[2024-12-18 13:39] LABS: C.Diff PCR (Lab) NEGATIVE (Negative)
--- NOTE | 2024-12-18 14:00 | P.PN_ITS ---
Subjective 2 Subjective: No acute events overnight. Today morning seen postop ORIF. Sitting up in chair. Complaining of pain and mild dizziness. Denies any nausea, vomiting. Continues to have watery bowel. Vitals/I&O/Wt Last Vital Signs Temp 98.7 F 12/18/24 11:50 Pulse 115 H 12/18/24 11:50 Resp 15 12/18/24 11:50 BP 151/98 12/18/24 11:50 Pulse Ox 100 12/18/24 11:50 O2 Del Method Nasal Cannula 12/18/24 11:50 O2 Flow Rate 2 12/18/24 10:20 12/17/24 12/18/24 12/18/24 22:59 06:59 14:59 Intake Total 367.85 / 367.85 300 / 667.85 440.667 / 440.667 Output Total 225 / 225 40 / 40 Balance 367.85 / 367.85 75 / 442.85 400.667 / 400.667 Weight last 48 hrs Weight 59.874 kg Weight 60.146 kg Weight 58.967 kg Physical Exam 2 Narrative: General: No acute distress, AO x3 HEENT: PERRLA, pupils bilaterally equal and reactive Chest: Normal vesicular breath sounds, no added sounds, equal good air entry bilaterally CVS: S1-S2 regular, no murmurs, no tachycardia, no gallops, no rubs Abdomen: Soft, nontender, no organomegaly, bowel sounds present Neuro: No focal deficits, no facial deformity, AO x3, power 5/5 in all limbs Urinary Catheter Management: Juarez: Cath Placed During This Visit: yes Reason for Continuing Indwelling Catheter: Perioperative Use in Selected Surgeries Urinary Catheter Date of Insertion: 12/17/24 Urinary Catheter Time of Insertion: 15:00 Data 12/18/24 02:27 12/18/24 02:27 Micro: Microbiology 12/17/24 10:00 Blood Culture - Preliminary Blood NEGATIVE TO DATE 12/17/24 09:49 Blood Culture - Preliminary Blood NEGATIVE TO DATE A&P Assessment and plan 1. Subcapital fracture of right hip: Orthopedic has been consulted from the ER. Post ORIF on 12/18. Monitor hemoglobin. Physical therapy. 2. H/O mechanical aortic valve replacement: Chronically on Coumadin. Goal INR 2-3 postoperatively. Appreciate echocardiogram. INR reversed yesterday with 2.5 mg of IV vitamin K. Continue with heparin drip. Patient takes Coumadin 3 mg daily at home. For now we will start on 5 mg daily till target INR is reached along with heparin bridging. Confirmed with orthopedic team for starting anticoagulation today. 3. Acute kidney injury: Baseline creatinine normal. Resolving. Most likely in setting of dehydration. Continue with NS to finish 1 L. Will encourage oral intake. Monitor BMP daily. 4. Hyperkalemia: Resolved. 5. Essential hypertension: Goal blood pressure less than 140/90 mmHg. Blood pressure slightly soft currently. Continue with home dose of metoprolol. Uptitrate as per goal blood pressure. 6. Pulmonary hypertension: Oxygen supplementation keeping saturation over 90%. 7. Pacemaker: 8. Atrial fibrillation: Rate controlled. Telemetry. Continue with home dose of metoprolol. On heparin drip as above. 9. History of common carotid artery stent placement: Plan: Leukocytosis: Could be reactionary or from dehydration. UA negative for UTI. Chest x-ray negative for pneumonia. C. difficile ruled out. Continue with empiric IV ceftriaxone for now. Monitor. If remains afebrile and leukocytosis resolves rapidly we will discontinue antibiotics. If remains afebrile and blood cultures remain negative for next 24 hours will discontinue antibiotics. Fall: Physical therapy. Complaining of right shoulder and elbow pain. Appreciate x-ray and CT scan negative for scapular fracture. Most likely in setting of osteoarthritis. Continue with pain control as above History of dementia: Continue with 10 mg of donepezil. Add Celexa. Hypothyroidism: Continue with home dose of levothyroxine. Appreciate thyroid panel. Full code Cardiac diet Coumadin and heparin drip will be sufficient for DVT prophylaxis as well. Protonix OPD prophylaxis Discharge plan: Discussed in detail with patient and daughter at bedside. Daughter requesting transition to SNF. Case management alerted. PDMP PDMP Reviewed: Not Reviewed Attestations 2 Medical Necessity Statement*: Requires further hospitalization for post ORIF care for hip fracture, while safe discharge planning is sought, heparin is bridged to Coumadin Diagnoses Subcapital fracture of right hip S72.011A H/O mechanical aortic valve replacement Z95.2 Acute kidney injury N17.9 Hyperkalemia E87.5 Essential hypertension I10 Pulmonary hypertension I27.20 Pacemaker Z95.0 Atrial fibrillation I48.91 History of common carotid artery stent placement Z98.890; Z95.828
[2024-12-18] MEDS: mupirocin oint 22 gm 1 APPLIC NASAL (17:25)
[2024-12-18] MEDS: pantoprazole 40 mg SDV IVP (17:25)
[2024-12-18] MEDS: calcium carb-vit d 600mg/400unit 1 Tablet 1 EACH PO (17:26)
[2024-12-18 18:23] LABS: Partial Thromboplastin Time 49.7 SECONDS (23.9-36.7)
[2024-12-18] MEDS: heparin 5,000 unit/mL INJ 1 mL IVP (19:08)
[2024-12-19] VITALS (9 sets, daily range): BP systolic 99–159; BP diastolic 63–90; PULSE 73–88; RESP 16–18; TEMP 36.4–37.2; O2SAT 97–100
[2024-12-19 00:46] LABS: Hematocrit 33.0 % (36-47); Hemoglobin 10.90 g/dL (11.27-16.99); Mean Corpuscular HGB Conc 33.0 g/dL (30-55); Mean Corpuscular Hemoglobin 31.7 pg (27-33); Mean Corpuscular Volume 95.9 fl (85-98); Nucleated Red Blood Cells % 0 %; Platelet Count 149 10^3/cmm (157-399); Red Blood Count 3.44 10^6/uL (3.85-5.65); White Blood Count 18.02 10^3/uL (3.29-11.43)
[2024-12-19 01:04] LABS: Partial Thromboplastin Time 74.1 SECONDS (23.9-36.7)
[2024-12-19 01:06] LABS: Alanine Aminotransferase 25 U/L (0-33); Albumin Level 3.7 g/dL (3.5-5.2); Alkaline Phosphatase 64 U/L (35-105); Anion Gap 16.0 (5-19); Aspartate Amino Transferase 27 U/L (0-32); Blood Urea Nitrogen 38 mg/dL (8-23); Calcium 8.9 mg/dL (8.5-10.5); Carbon Dioxide 23 mmol/L (22-29); Chloride 104 mmol/L (98-107); Globulin 2.9 g/dL (1.3-4.6); Glucose 119 mg/dL (65-115); Magnesium 2.0 mg/dL (1.7-2.3); Osmolality Calculated 298 mOsm/kg (285-295); Potassium 4.0 mmol/L (3.5-5.1); Sodium 139 mmol/L (136-145); Total Protein 6.6 g/dL (6.6-8.7)
[2024-12-19 01:21] LABS: INR 1.40 (0.8-1.2); Prothrombin Time 18.00 SECONDS (12.1-14.9)
[2024-12-19 01:27] LABS: Creatinine Clr Calc Pharmacy 41.8758
[2024-12-19 07:42] LABS: Partial Thromboplastin Time 70.1 SECONDS (23.9-36.7)
[2024-12-19] MEDS: calcium carb-vit d 600mg/400unit 1 Tablet 1 EACH PO ×2 (09:59→17:55)
[2024-12-19] MEDS: HYDROcodone-acetaminophen 5-325 mg Tablet 1 TAB PO ×2 (10:00→17:55)
[2024-12-19] MEDS: multivitamin therapeutic Tablet 1 TAB PO (10:00)
[2024-12-19] MEDS: chlorhexidine gluconate 0.12% Btl 473 mL 30 ML MUCOUS MEM ×3 (10:02→21:14)
[2024-12-19] MEDS: mupirocin oint 22 gm 1 APPLIC NASAL ×2 (10:02→17:55)
--- NOTE | 2024-12-19 12:33 | P.PN_ITS ---
Subjective 2 Subjective: Patient seen and examined today she got up and mobilize with therapy pain is improved and surgery no issues overnight Vitals/I&O/Wt Last Vital Signs Temp 97.5 F L 12/19/24 11:56 Pulse 77 12/19/24 11:56 Resp 17 12/19/24 11:56 BP 153/86 12/19/24 11:56 Pulse Ox 99 12/19/24 11:56 O2 Del Method Nasal Cannula 12/19/24 11:56 O2 Flow Rate 2 12/19/24 11:51 12/18/24 12/19/24 12/19/24 22:59 06:59 14:59 Intake Total 435 / 875.667 67.467 / 943.134 74.617 / 74.617 Output Total 150 / 190 150 / 340 Balance 285 / 685.667 -82.533 / 603.134 74.617 / 74.617 Weight last 48 hrs Weight 140 lb 12.8 oz Weight 132 lb Weight 132 lb 9.6 oz Physical Exam 2 Narrative: Right hip examination dressing clean dry and intact normal postoperative swelling of the right hip compartments soft and compressible patient able to wiggle toes plantarflex and dorsiflex ankle distal pulse palpable right lower extremity sensation intact light touch distally Urinary Catheter Management: Juarez: Cath Placed During This Visit: yes Reason for Continuing Indwelling Catheter: Other Urinary Catheter Date of Insertion: 12/17/24 Urinary Catheter Time of Insertion: 15:00 Data 12/19/24 00:38 12/19/24 00:38 Micro: Microbiology 12/17/24 10:00 Blood Culture - Preliminary Blood NEGATIVE TO DATE 12/17/24 09:49 Blood Culture - Preliminary Blood NEGATIVE TO DATE Xray Ortho: Radiologist's impression: Ordering Provider/Ordering MD: Oni Lundberg Date of Service: 12/18/24 Procedure(s): XR hip RT 2-3V wo/w pel* 53810 Accession Number(s): [id number] Report Number: [id number] PROCEDURE INFORMATION: Exam: XR Right Hip Exam date and time: 12/18/2024 10:49 AM Age: 79 years old Clinical indication: Screening exam; Prior surgery; Surgery date: Post-operative (0-2 days); Surgery type: Post op RT hip crpp TECHNIQUE: Imaging protocol: Radiologic exam of the right hip. Views: 1 view hip with pelvis when performed. COMPARISON: OT XR hip RT 2-3V wo/w pel* [id number] 12/18/2024 8:23 AM FINDINGS: Bones/joints: Surgical screws crossing the right femoral neck fracture are seen. No joint dislocation. Soft tissues: Unremarkable. Vasculature: Calcified atherosclerotic changes are seen. XR/XR hip RT 2-3V wo/w pel* [id number] IMPRESSION: Surgical screws crossing the right femoral neck fracture are seen. A&P Assessment and plan 1. Subcapital fracture of right hip: Plan: Orthopedics consulted Hospitalist admitted patient is primary Imaging reviewed?stable cannulated screw fixation X-rays reviewed?CT of shoulder negative for scapular fracture May range right shoulder as tolerated Labs reviewed Pain control Partial weightbearing 30 to 50%?right lower extremity May have a diet today Postoperative day 1 right hip closed reduction and percutaneous screw fixation PT/OT DVT prophylaxis?(resume patient's Coumadin per primary) Orthopedics will continue to follow Case management on board for discharge plan PDMP PDMP Reviewed: Not Reviewed Attestations 2 Medical Necessity Statement*: Per primary?ongoing right hip close reduction percutaneous screw fixation Coding Level of Care Code Acute Code for [facility] Fwd Diagnoses Subcapital fracture of right hip S72.011A Time Spent (min) 15
[2024-12-19] MEDS: cefTRIAXone 1,000 mg SDV 1000 MG IVP (13:26)
--- NOTE | 2024-12-19 14:24 | P.PN_ITS ---
Subjective 2 Subjective: No acute events overnight. Seen sitting comfortably in bed. States she is feeling better. Working with incentive spirometry. Denies any nausea, vomiting, headache. Vitals/I&O/Wt Last Vital Signs Temp 97.5 F L 12/19/24 11:56 Pulse 77 12/19/24 11:56 Resp 17 12/19/24 11:56 BP 153/86 12/19/24 11:56 Pulse Ox 99 12/19/24 11:56 O2 Del Method Nasal Cannula 12/19/24 11:56 O2 Flow Rate 2 12/19/24 11:51 12/18/24 12/19/24 12/19/24 22:59 06:59 14:59 Intake Total 435 / 875.667 67.467 / 943.134 314.617 / 314.617 Output Total 150 / 190 150 / 340 Balance 285 / 685.667 -82.533 / 603.134 314.617 / 314.617 Weight last 48 hrs Weight 63.866 kg Weight 59.874 kg Weight 60.146 kg Physical Exam 2 Narrative: General: No acute distress, AO x3 HEENT: PERRLA, pupils bilaterally equal and reactive Chest: Normal vesicular breath sounds, no added sounds, equal good air entry bilaterally CVS: S1-S2 regular, no murmurs, no tachycardia, no gallops, no rubs Abdomen: Soft, nontender, no organomegaly, bowel sounds present Neuro: No focal deficits, no facial deformity, AO x3, power 5/5 in all limbs Urinary Catheter Management: Juarez: Cath Placed During This Visit: yes Reason for Continuing Indwelling Catheter: Other Urinary Catheter Date of Insertion: 12/17/24 Urinary Catheter Time of Insertion: 15:00 Data 12/19/24 00:38 12/19/24 00:38 Micro: Microbiology 12/17/24 10:00 Blood Culture - Preliminary Blood NEGATIVE TO DATE 12/17/24 09:49 Blood Culture - Preliminary Blood NEGATIVE TO DATE A&P Assessment and plan 1. Subcapital fracture of right hip: Orthopedic has been consulted from the ER. Post ORIF on 12/18. Monitor hemoglobin. Physical therapy. 2. H/O mechanical aortic valve replacement: Chronically on Coumadin. Goal INR 2-3 postoperatively. Appreciate echocardiogram. INR reversed yesterday with 2.5 mg of IV vitamin K. Continue with heparin drip. Patient takes Coumadin 3 mg daily at home. For now we will start on 5 mg daily till target INR is reached along with heparin bridging. Confirmed with orthopedic team for starting anticoagulation today. 3. Acute kidney injury: Baseline creatinine normal. Resolving. Most likely in setting of dehydration. Continue with NS to finish 1 L. Will encourage oral intake. Monitor BMP daily. 4. Hyperkalemia: Resolved. 5. Essential hypertension: Goal blood pressure less than 140/90 mmHg. Blood pressure slightly soft currently. Continue with home dose of metoprolol. Uptitrate as per goal blood pressure. 6. Pulmonary hypertension: Oxygen supplementation keeping saturation over 90%. 7. Pacemaker: 8. Atrial fibrillation: Rate controlled. Telemetry. Continue with home dose of metoprolol. On heparin drip as above. 9. History of common carotid artery stent placement: Plan: Leukocytosis: Could be reactionary or from dehydration. UA negative for UTI. Chest x-ray negative for pneumonia. C. difficile ruled out. Continue with empiric IV ceftriaxone for now. Monitor. If remains afebrile and leukocytosis resolves rapidly we will discontinue antibiotics. If remains afebrile and blood cultures remain negative for next 24 hours will discontinue antibiotics. Fall: Physical therapy. Complaining of right shoulder and elbow pain. Appreciate x-ray and CT scan negative for scapular fracture. Most likely in setting of osteoarthritis. Continue with pain control as above History of dementia: Continue with 10 mg of donepezil. Add Celexa. Hypothyroidism: Continue with home dose of levothyroxine. Appreciate thyroid panel. Full code Cardiac diet Coumadin and heparin drip will be sufficient for DVT prophylaxis as well. Protonix OPD prophylaxis Discharge plan: Discussed in detail with patient and daughter at bedside. Daughter requesting transition to SNF. Case management alerted. Plan for the day: Continue with physical therapy. Current pain medications. Continue with heparin drip while bridging to warfarin. Goal INR 2-3. For now continue with warfarin 5 mg daily. Repeat INR daily. Monitor hemoglobin. So far stable. Monitor PTTs. Aggressive incentive spirometry. Does have mild leukocytosis today. Leukocytosis most likely reactionary to ORIF yesterday. Patient has remained afebrile. Blood cultures so far negative. Continue with IV ceftriaxone for now. Acute kidney injury and hyperkalemia resolved. Hold off on fluids. Encouraged increased oral intake. PDMP PDMP Reviewed: Not Reviewed Attestations 2 Medical Necessity Statement*: Requires further hospitalization for post ORIF care, mechanical aortic valve while bridging from heparin to warfarin Diagnoses Subcapital fracture of right hip S72.011A H/O mechanical aortic valve replacement Z95.2 Acute kidney injury N17.9 Hyperkalemia E87.5 Essential hypertension I10 Pulmonary hypertension I27.20 Pacemaker Z95.0 Atrial fibrillation I48.91 History of common carotid artery stent placement Z98.890; Z95.828
[2024-12-19 14:39] LABS: Partial Thromboplastin Time 64.8 SECONDS (23.9-36.7)
[2024-12-19] MEDS: heparin drip 25,000 UNIT/500 ML PREMIX 11 UNIT IV (14:45)
[2024-12-19] MEDS: pantoprazole 40 mg SDV IVP (17:55)
[2024-12-19 21:57] LABS: Partial Thromboplastin Time 81.9 SECONDS (23.9-36.7)
[2024-12-20] VITALS (7 sets, daily range): BP systolic 108–148; BP diastolic 68–88; PULSE 68–103; RESP 17–18; TEMP 36.4–36.9; O2SAT 93–100
[2024-12-20 04:08] LABS: Hematocrit 29.1 % (36-47); Hemoglobin 9.50 g/dL (11.27-16.99); Mean Corpuscular HGB Conc 32.6 g/dL (30-55); Mean Corpuscular Hemoglobin 31.6 pg (27-33); Mean Corpuscular Volume 96.7 fl (85-98); Nucleated Red Blood Cells % 0 %; Platelet Count 151 10^3/cmm (157-399); Red Blood Count 3.01 10^6/uL (3.85-5.65); White Blood Count 13.52 10^3/uL (3.29-11.43)
[2024-12-20 04:13] LABS: Alanine Aminotransferase 20 U/L (0-33); Albumin Level 3.3 g/dL (3.5-5.2); Alkaline Phosphatase 56 U/L (35-105); Anion Gap 10.9 (5-19); Aspartate Amino Transferase 21 U/L (0-32); Blood Urea Nitrogen 30 mg/dL (8-23); Calcium 8.6 mg/dL (8.5-10.5); Carbon Dioxide 28 mmol/L (22-29); Chloride 105 mmol/L (98-107); Creatinine Clr Calc Pharmacy 53.7821; Globulin 2.4 g/dL (1.3-4.6); Glucose 97 mg/dL (65-115); Magnesium 2.0 mg/dL (1.7-2.3); Osmolality Calculated 296 mOsm/kg (285-295); Potassium 3.9 mmol/L (3.5-5.1); Sodium 140 mmol/L (136-145); Total Protein 5.7 g/dL (6.6-8.7)
[2024-12-20 04:23] LABS: Partial Thromboplastin Time 70.0 SECONDS (23.9-36.7)
[2024-12-20] MEDS: calcium carb-vit d 600mg/400unit 1 Tablet 1 EACH PO ×2 (09:10→17:54)
[2024-12-20] MEDS: multivitamin therapeutic Tablet 1 TAB PO (09:11)
[2024-12-20] MEDS: HYDROcodone-acetaminophen 5-325 mg Tablet 1 TAB PO ×2 (09:11→17:54)
[2024-12-20] MEDS: mupirocin oint 22 gm 1 APPLIC NASAL (09:12)
[2024-12-20] MEDS: chlorhexidine gluconate 0.12% Btl 473 mL 30 ML MUCOUS MEM ×2 (09:12→20:46)
[2024-12-20 09:18] LABS: INR 2.87 (0.8-1.2); Prothrombin Time 31.70 SECONDS (12.1-14.9)
[2024-12-20 10:01] LABS: Partial Thromboplastin Time 57.6 SECONDS (23.9-36.7)
[2024-12-20 12:18] LABS: INR 3.11 (0.8-1.2); Prothrombin Time 33.70 SECONDS (12.1-14.9)
--- NOTE | 2024-12-20 12:33 | P.PN_ITS ---
Subjective 2 Subjective: Patient having a little nausea but was able to eat breakfast. Denies pain. Vitals/I&O/Wt Last Vital Signs Temp 97.8 F 12/20/24 11:43 Pulse 89 12/20/24 11:43 Resp 17 12/20/24 11:43 BP 115/68 12/20/24 11:43 Pulse Ox 100 12/20/24 11:43 O2 Del Method Room Air 12/20/24 11:43 O2 Flow Rate 0.5 12/20/24 08:00 12/19/24 12/20/24 12/20/24 22:59 06:59 14:59 Intake Total 554.25 / 942.567 70.167 / 1012.734 56 / 56 Output Total 450 / 450 100 / 550 150 / 150 Balance 104.25 / 492.567 -29.833 / 462.734 -94 / -94 Weight last 48 hrs Weight 64.183 kg Weight 63.866 kg Physical Exam 2 Narrative: Alert and oriented no acute distress Chest patient has a pacemaker in place Heart with a short burst systolic murmur and a click from her mechanical valve. Lungs clear to auscultation without wheezes rales or rhonchi Abdomen soft mild epigastric tenderness no hepatosplenomegaly normal active bowel sounds Extremities no edema Urinary Catheter Management: Juarez: Cath Placed During This Visit: yes, but has since been removed by the nurse Reason for Continuing Indwelling Catheter: Decision to DC Catheter Urinary Catheter Date of Insertion: 12/17/24 Urinary Catheter Time of Insertion: 15:00 Date Urinary Catheter Removed: 12/19/24 Time Urinary Catheter Discontinued: 19:33 Data 12/20/24 03:00 12/20/24 03:00 A&P Assessment and plan 1. Subcapital fracture of right hip: Post ORIF on 12/18. Monitor hemoglobin. Physical therapy. 2. H/O mechanical aortic valve replacement: Chronically on Coumadin. INR goal is typically 2.5-3.5 with a mechanical valve. Echo on 12/17/2024 shows normal EF mild mitral valve regurgitation the mechanical aortic valve has no significant stenosis or regurgitation there is also mild to moderate tricuspid regurgitation moderate pulmonary hypertension and mild pulm hardik regurgitation INR was reversed with a low dose IV vitamin K at 2.5. She was placed on IV heparin. Coumadin 5 mg was restarted on 12/18/2024 and another dose on 12 19. INR today was 2.87 at 0300 and now at 1142 it is 3.1. DC heparin drip. hold Coumadin today. likely restart Coumadin home dose tomorrow 3. Acute kidney injury: Baseline creatinine normal. Resolved. Most likely in setting of dehydration. Continue with NS to finish 1 L. Will encourage oral intake. 4. Hyperkalemia: Resolved. 5. Essential hypertension: Goal blood pressure less than 140/90 mmHg. Blood pressure slightly soft currently. Continue with home dose of metoprolol. Uptitrate as per goal blood pressure. 6. Pulmonary hypertension: Oxygen supplementation keeping saturation over 90%. 7. Pacemaker: 8. Atrial fibrillation: Rate controlled. Telemetry. Continue with home dose of metoprolol. 9. History of common carotid artery stent placement: Plan: Leukocytosis: Workup negative for infection Patient has been on empiric IV ceftriaxone for 3 doses 12/17-12/19. Continue with empiric IV ceftriaxone for now. Patient continues with leukocytosis. She had a maximum level of 18 yesterday. Blood cultures have been negative Fall: Physical therapy. Complaining of right shoulder and elbow pain. Appreciate x-ray and CT scan negative for scapular fracture. Most likely in setting of osteoarthritis. Continue with pain control as above History of dementia: Continue with 10 mg of donepezil. Add Celexa. Hypothyroidism: Continue with home dose of levothyroxine. Appreciate thyroid panel. Full code Cardiac diet On full dose anticoagulation Protonix OPD prophylaxis Discharge plan: DC planning for longterm facility. Awaiting acceptance at facility Would like another day to monitor INR PDMP PDMP Reviewed: Not Reviewed Attestations 2 Medical Necessity Statement*: Requires further hospitalization for post ORIF care, mechanical aortic valve while bridging from heparin to warfarin Coding Level of Care Code Acute Code for [facility] Fwd Diagnoses Subcapital fracture of right hip S72.011A H/O mechanical aortic valve replacement Z95.2 Acute kidney injury N17.9 Hyperkalemia E87.5 Essential hypertension I10 Pulmonary hypertension I27.20 Pacemaker Z95.0 Atrial fibrillation I48.91 History of common carotid artery stent placement Z98.890; Z95.828
[2024-12-20] MEDS: cefTRIAXone 1,000 mg SDV 1000 MG IVP (13:02)
--- NOTE | 2024-12-20 15:34 | PC.SOCIAL ---
IMM UPDATED IMM dated and initialed, copy given to patient and copy placed in chart.
[2024-12-20 16:19] LABS: Partial Thromboplastin Time 34.0 SECONDS (23.9-36.7)
[2024-12-20] MEDS: pantoprazole 40 mg SDV IVP (17:55)
--- NOTE | 2024-12-20 18:03 | P.PN_ITS ---
Subjective 2 Subjective: Patient seen and examined today. Eating dinner. Has progressed well with therapy planning, no acute issues overnight Vitals/I&O/Wt Last Vital Signs Temp 98.4 F 12/20/24 15:39 Pulse 103 H 12/20/24 15:39 Resp 17 12/20/24 15:39 BP 148/86 12/20/24 15:39 Pulse Ox 98 12/20/24 15:39 O2 Del Method Room Air 12/20/24 15:39 O2 Flow Rate 1 12/20/24 12:05 12/20/24 12/20/24 12/20/24 06:59 14:59 22:59 Intake Total 70.167 / 1012.734 595.583 / 595.583 360 / 955.583 Output Total 100 / 550 150 / 150 Balance -29.833 / 462.734 445.583 / 445.583 360 / 805.583 Weight last 48 hrs Weight 141 lb 8 oz Weight 140 lb 12.8 oz Physical Exam 2 Narrative: Right hip examination dressing clean dry and intact normal postoperative swelling of the right hip compartments soft and compressible patient able to wiggle toes plantarflex and dorsiflex ankle distal pulse palpable right lower extremity sensation intact light touch distally Urinary Catheter Management: Juarez: Cath Placed During This Visit: yes, but has since been removed by the nurse Reason for Continuing Indwelling Catheter: Decision to DC Catheter Urinary Catheter Date of Insertion: 12/17/24 Urinary Catheter Time of Insertion: 15:00 Date Urinary Catheter Removed: 12/19/24 Time Urinary Catheter Discontinued: 19:33 Data 12/20/24 03:00 12/20/24 03:00 A&P Assessment and plan 1. Subcapital fracture of right hip: Plan: Orthopedics consulted Hospitalist admitted patient is primary Imaging reviewed?stable cannulated screw fixation X-rays reviewed?CT of shoulder negative for scapular fracture May range right shoulder as tolerated Labs reviewed Pain control May change dressing as needed?prior to discharge okay to transition from foam tape dressing to Silverlon dressing Partial weightbearing 30 to 50%?right lower extremity May have a diet today Postoperative day 2 right hip closed reduction and percutaneous screw fixation PT/OT DVT prophylaxis?(resume patient's Coumadin per primary) Case management on board for discharge plan Orthopedic surgery team will sign off patient at this time no acute further orthopedic surgical intervention required at this time orthopedic surgery team will sign off and follow peripherally if there is any questions pertaining to patient's care feel free to contact orthopedics on-call appropriate discharge instructions in patient's chart. Patient will follow-up in orthopedic office in 2 weeks all questions answered. PDMP PDMP Reviewed: Not Reviewed Attestations 2 Medical Necessity Statement*: Per primary Coding Level of Care Code Acute Code for g Fwd Diagnoses Subcapital fracture of right hip S72.011A Time Spent (min) 10
[2024-12-21] VITALS: BP 114/72; PULSE 86; RESP 16; TEMP 37; O2SAT 98
[2024-12-21 04:00] VITALS: BP 119/70; PULSE 80; RESP 16; TEMP 37; O2SAT 96
[2024-12-21 05:36] LABS: Hematocrit 27.3 % (36-47); Hemoglobin 8.90 g/dL (11.27-16.99); Mean Corpuscular HGB Conc 32.6 g/dL (30-55); Mean Corpuscular Hemoglobin 31.9 pg (27-33); Mean Corpuscular Volume 97.8 fl (85-98); Nucleated Red Blood Cells % 0 %; Platelet Count 160 10^3/cmm (157-399); Red Blood Count 2.79 10^6/uL (3.85-5.65); White Blood Count 9.80 10^3/uL (3.29-11.43)
[2024-12-21 05:44] LABS: INR 2.99 (0.8-1.2); Prothrombin Time 32.70 SECONDS (12.1-14.9)
[2024-12-21 05:52] LABS: Alanine Aminotransferase 19 U/L (0-33); Albumin Level 3.1 g/dL (3.5-5.2); Alkaline Phosphatase 57 U/L (35-105); Anion Gap 13.9 (5-19); Aspartate Amino Transferase 21 U/L (0-32); Blood Urea Nitrogen 23 mg/dL (8-23); Calcium 8.6 mg/dL (8.5-10.5); Carbon Dioxide 27 mmol/L (22-29); Chloride 105 mmol/L (98-107); Creatinine Clr Calc Pharmacy 54.3046; Globulin 2.4 g/dL (1.3-4.6); Glucose 101 mg/dL (65-115); Magnesium 1.9 mg/dL (1.7-2.3); Osmolality Calculated 298 mOsm/kg (285-295); Potassium 3.9 mmol/L (3.5-5.1); Sodium 142 mmol/L (136-145); Total Protein 5.5 g/dL (6.6-8.7)
[2024-12-21 07:25] VITALS: BP 152/84; PULSE 81; RESP 18; TEMP 36.6; O2SAT 97
[2024-12-21] MEDS: multivitamin therapeutic Tablet 1 TAB PO (07:47)
[2024-12-21] MEDS: calcium carb-vit d 600mg/400unit 1 Tablet 1 EACH PO (07:48)
[2024-12-21] MEDS: HYDROcodone-acetaminophen 5-325 mg Tablet 1 TAB PO ×2 (07:48→12:58)
[2024-12-21] MEDS: mupirocin oint 22 gm 1 APPLIC NASAL (07:49)
[2024-12-21] MEDS: chlorhexidine gluconate 0.12% Btl 473 mL 30 ML MUCOUS MEM ×2 (07:49→12:52)
[2024-12-21 11:04] LABS: SARS Covid-2 Antigen Negative (Negative)
[2024-12-21 11:06] VITALS: BP 121/79; PULSE 83; RESP 18; TEMP 36.7; O2SAT 96
--- NOTE | 2024-12-21 11:40 | PC.NURSE ---
D/C pending ride to [facility].
[2024-12-21] MEDS: cefTRIAXone 1,000 mg SDV 1000 MG IVP (12:52)
--- NOTE | 2024-12-21 13:14 | PC.NURSE ---
This nurse called report to CAROLYNE Ordoñez at [facility] at 1315.
--- NOTE | 2024-12-21 13:41 | PM.DCS ---
Discharge Providers Date of Admission: 12/17/24 13:28 Date of Discharge: December 21, 2024 Attending Provider at Admission: Leon Hillman MD Attending Provider at Discharge: Jose Lewis DO Consults: Orthopedic surgery Primary Care Provider: Ruy Palacio MD Diagnoses at Discharge Discharge Diagnosis 1. Subcapital fracture of right hip: Reason for Visit Reason for Visit: chest pain - fall Brief History: Jennifer You is a 79 year old female with past medical history of mechanical aortic valve on Coumadin, hypertension, osteoporosis, hip fracture, multiple falls, UTI, Atrial fibrillation, carotid artery stent presents to the ER today after sustaining a mechanical fall earlier in the day. As per the daughter who is at bedside yesterday patient's spouse fell on her after which she started having elbow and neck pain. Patient has constipation alternating with diarrhea chronically. Today she started having diarrhea and had a bowel accident and while going to the bathroom she slipped after which she complained of hip pain. In the ER she was found to have right subcapital fracture of hip. Hospital Course Hospital Course Patient was admitted for right hip fracture. Patient had ORIF the following day. Patient was on anticoagulation for A-fib and in order to have surgery patient required a small dose of vitamin K. Thus she was placed on heparin and restarted on her anticoagulation for appropriate overlap. Once anticoagulation was restarted her INR jumped to over 3. So for 1 day anticoagulation was held and then today we resumed her home dose of 3 mg daily which was not listed appropriately and her MAR. Pharmacy was able to confirm that she was actually taking 3 mg a daily and she will be placed back on this dosing. Patient is discharged in stable and improved condition to a care home facility for rehab Physical Exam Narrative: Alert and oriented no acute distress Chest patient has a pacemaker in place Heart with a short burst systolic murmur and a click from her mechanical valve. Lungs clear to auscultation without wheezes rales or rhonchi Abdomen soft mild epigastric tenderness no hepatosplenomegaly normal active bowel sounds Extremities no edema Urinary Catheter Management: Juarez: Cath Placed During This Visit: yes, but has since been removed by the nurse Reason for Continuing Indwelling Catheter: Decision to DC Catheter Urinary Catheter Date of Insertion: 12/17/24 Urinary Catheter Time of Insertion: 15:00 Date Urinary Catheter Removed: 12/19/24 Time Urinary Catheter Discontinued: 19:33 Discharge Data Studies Completed and Pending Completed Studies During Hospitalization Category Date Time Status CT head wo con* [id number] Stat Cat Scan 12/17/24 09:[address] hip RT wo con* [id number] Urgent Cat Scan 12/17/24 17:[address] shoulder RT wo con* [id number] Routine Cat Scan 12/17/24 19:10 Completed XR chest 1V portable [id number] Stat Exams 12/17/24 10:16 Completed XR elbow RT 2V [id number] Routine Exams 12/17/24 16:48 Completed XR hip BI m 5V wo/w pel* [id number] Stat Exams 12/17/24 10:17 Completed XR hip RT 2-3V wo/w pel* [id number] Routine Exams 12/18/24 09:39 Completed XR hip RT 2-3V wo/w pel* [id number] Routine Exams 12/18/24 10:19 Completed XR shoulder RT 1V 12510 Routine Exams 12/17/24 16:48 Completed CV. echo complete* [id number] Routine Ultrasound 12/17/24 12:30 Completed Pending at discharge Category Date Time Status C-arm Fluoroscopy [id number] Routine Exams 12/18/24 03:29 Taken Blood Culture Stat Lab 12/17/24 09:49 Results Radiology Impressions Head CT 12/17/24 09:34 IMPRESSION: 1. No acute intracranial hemorrhage or edema. 2. Moderate atrophy and small vessel disease, similar to the prior study from 01/24/2023. 3. No additional infarcts. Chest X-Ray 12/17/24 10:16 Impression: 1. Cardiomegaly and atherosclerosis. 2. Artificial aortic valve and cardiac pacemaker. Elbow X-Ray 12/17/24 16:48 IMPRESSION: No acute findings. Shoulder X-Ray 12/17/24 16:48 IMPRESSION: Irregular linear lucency through the scapula seen on two views may be artifactual but a scapular fracture can not be excluded on this examination. Correlate clinically and if indicated a scapular radiograph may be obtained for further evaluation. Hip CT 12/17/24 17:02 IMPRESSION: Impaction fracture of the right femoral neck. Shoulder CT 12/17/24 19:10 IMPRESSION: No scapular fracture. Hip/Pelvis X-Ray 12/18/24 10:19 IMPRESSION: Surgical screws crossing the right femoral neck fracture are seen. Laboratory Results WBC 9.80 10^3/uL (3.29-11.43) 12/21/24 04:58 RBC 2.79 10^6/uL (3.85-5.65) L 12/21/24 04:58 Hgb 8.90 g/dL (11.27-16.99) L 12/21/24 04:58 Hct 27.3 % (36-47) L 12/21/24 04:58 MCV 97.8 fl (85-98) 12/21/24 04:58 MCH 31.9 pg (27-33) 12/21/24 04:58 MCHC 32.6 g/dL (30-55) 12/21/24 04:58 RDW 13.7 % (12.1-15.1) 12/21/24 04:58 Plt Count 160 10^3/cmm (157-399) 12/21/24 04:58 MPV 10.1 fL (7.4-10.4) 12/21/24 04:58 Neut % (Auto) 74.5 % 12/21/24 04:58 Lymph % (Auto) 14.4 % 12/21/24 04:58 [place] % (Auto) 8.1 % 12/21/24 04:58 Eos % (Auto) 2.3 % 12/21/24 04:58 Baso % (Auto) 0.2 % 12/21/24 04:58 Neut # (Auto) 7.30 10^3/uL (1.8-7.7) 12/21/24 04:58 Lymph # (Auto) 1.4 10^3/uL (0.8-4.8) 12/21/24 04:58 [place] # (Auto) 0.8 10^3/uL (0.2-0.9) 12/21/24 04:58 Eos # (Auto) 0.2 10^3/uL (0.0-0.8) 12/21/24 04:58 Baso # (Auto) 0.0 10^3/uL (0.0-0.1) 12/21/24 04:58 Nucleated RBC % (auto) 0 % 12/21/24 04:58 Nucleated RBCs # 0.0 /100WBC 12/21/24 04:58 PT 32.70 SECONDS (12.1-14.9) H 12/21/24 04:58 INR 2.99 (0.8-1.2) H 12/21/24 04:58 APTT 34.0 SECONDS (23.9-36.7) 12/20/24 15:46 Sodium 142 mmol/L (136-145) 12/21/24 04:58 Potassium 3.9 mmol/L (3.5-5.1) 12/21/24 04:58 Chloride 105 mmol/L (98-107) 12/21/24 04:58 Carbon Dioxide 27 mmol/L (22-29) 12/21/24 04:58 Anion Gap 13.9 (5-19) 12/21/24 04:58 BUN 23 mg/dL (8-23) 12/21/24 04:58 Creatinine 0.7 mg/dL (0.5-0.9) 12/21/24 04:58 GFR Calculation Not Reportable 12/21/24 04:58 Glucose 101 mg/dL (65-115) 12/21/24 04:58 Estimat Average Glucose 114 12/17/24 09:49 Hemoglobin A1c 5.6 % (4.0-6.0) 12/17/24 09:49 Calculated Osmolality 298 mOsm/kg (285-295) H 12/21/24 04:58 Lactic Acid 3.8 mmol/L (0.5-2.2) H 12/17/24 09:49 Lactic Acid (Sepsis) 2.7 mmol/L (0.5-2.2) H 12/17/24 11:39 Calcium 8.6 mg/dL (8.5-10.5) 12/21/24 04:58 Phosphorus 2.4 mg/dL (2.5-4.5) L 12/21/24 04:58 Magnesium 1.9 mg/dL (1.7-2.3) 12/21/24 04:58 Iron 49 ug/dL (37-145) 12/17/24 09:49 TIBC 341 mcg/dl 12/17/24 09:49 % Saturation 14.3 % (20-50) L 12/17/24 09:49 Unsat Iron Binding 292 ug/dL (112-347) 12/17/24 09:49 Total Bilirubin 0.4 mg/dL (0.15-1.2) 12/21/24 04:58 AST 21 U/L (0-32) 12/21/24 04:58 ALT 19 U/L (0-33) 12/21/24 04:58 Alkaline Phosphatase 57 U/L (35-105) 12/21/24 04:58 Creatine Kinase 62 U/L (26-192) 12/17/24 09:49 Troponin T Baseline 53 ng/L (0-10) H 12/17/24 09:49 Troponin T 120 Minute 54.76 ng/L (0-10) H 12/17/24 11:39 Delta Troponin T 1.76 ABS# (0-10) 12/17/24 11:39 Troponin T Hi Sens 6Hr 56.33 ng/L (0-10) H 12/17/24 15:00 Troponin T Hi Sens 6Hr Delta 3.33 ng/L (0-12) 12/17/24 15:00 NT-Pro-B Natriuret Pep 8827 pg/mL (0-450) H 12/17/24 09:49 Total Protein 5.5 g/dL (6.6-8.7) L 12/21/24 04:58 Albumin 3.1 g/dL (3.5-5.2) L 12/21/24 04:58 Globulin 2.4 g/dL (1.3-4.6) 12/21/24 04:58 Triglycerides 71 mg/dL (0-150) 12/18/24 02:27 Cholesterol 102 mg/dL (0-200) 12/18/24 02:27 LDL Cholesterol, Calc 32 mg/dL (50-129) L 12/18/24 02:27 HDL Cholesterol 56 mg/dL (60-100) L 12/18/24 02:27 LDL/HDL Ratio 0.57 RATIO (0.00-3.22) 12/18/24 02:27 Cholesterol/HDL Ratio 1.82 mg/dL (0.0-4.40) 12/18/24 02:27 Vitamin B12 > 2000 pg/mL (232-1245) H 12/17/24 09:49 Folate > 20.0 ng/mL (4.8-37.3) 12/18/24 02:27 Procalcitonin 0.09 ng/mL (0-0.5) 12/18/24 02:27 TSH 6.45 uIU/mL (0.27-4.20) H 12/17/24 09:49 Free T4 1.53 ng/dL (0.82-1.77) 12/17/24 22:22 Free T3 2.5 PG/ML (2.0-4.4) 12/17/24 22:22 Urine Color Dark yellow (Yellow) A 12/17/24 09:49 Urine Appearance Cloudy (CLEAR) A 12/17/24 09:49 Urine pH 5.0 (5-7) 12/17/24 09:49 Ur Specific [place] 1.028 (1.005-1.030) 12/17/24 09:49 Urine Protein 3+ (Negative) A 12/17/24 09:49 Urine Glucose (UA) Negative (Normal) 12/17/24 09:49 Urine Ketones Trace (Negative) 12/17/24 09:49 Urine Blood Negative (Negative) 12/17/24 09:49 Urine Nitrate Negative (Negative) 12/17/24 09:49 Urine Bilirubin 1+ (Negative) H 12/17/24 09:49 Urine Urobilinogen 1.0 mg/dL (Negative) 12/17/24 09:49 Ur Leukocyte Esterase 1+ (Negative) A 12/17/24 09:49 Urine RBC 6-10 /hpf (0-2) 12/17/24 09:49 Urine WBC 0-5 /hpf (0-5) 12/17/24 09:49 Ur Squamous Epith Cells 6-10 /hpf (0-5) 12/17/24 09:49 Amorphous Sediment Not Reportable 12/17/24 09:49 Urine Bacteria None seen /hpf (NONE) 12/17/24 09:49 Hyaline Casts 78.18 /lpf 12/17/24 09:49 Coarse Granular Casts 5-10 /lpf H 12/17/24 09:49 C. difficile (PCR) Negative (Negative) 12/18/24 12:19 SARS-CoV-2 Ag (Rapid) Negative (Negative) 12/21/24 09:46 Blood Type A Positive 12/18/24 05:53 Rho(D) Type Rh positive 12/18/24 05:53 Antibody Screen Negative 12/18/24 05:53 Vitals Last Vital Signs Temp 98.0 F 12/21/24 11:06 Pulse 83 12/21/24 11:06 Resp 18 12/21/24 11:06 BP 121/79 12/21/24 11:06 Pulse Ox 96 12/21/24 11:06 O2 Del Method Room Air 12/21/24 11:06 O2 Flow Rate 1 12/20/24 12:05 Discharge Plan Discharge Patient Disposition: Xfer SNF Condition: Stable Prescriptions: New atorvastatin 40 mg Tablet 40 mg PO BEDTIME Qty: 30 0RF calcium carbonate-vitamin D3 600 mg-10 mcg (400 unit) Tablet 1 tab PO BID Qty: 60 0RF citalopram 20 mg Tablet 10 mg PO DAILY Qty: 30 0RF docusate sodium 100 mg Capsule 100 mg PO BID Qty: 60 0RF donepezil 5 mg Tablet 10 mg PO DAILY Qty: 30 0RF hydrocodone-acetaminophen 5-325 mg Tablet 1 tab PO BID Qty: 30 0RF hydrocodone-acetaminophen 5-325 mg Tablet 1 tab PO Q8H PRN (Reason: Moderate Pain) Qty: 10 0RF magnesium hydroxide [Milk of Magnesia] 400 mg/5 mL Suspension 30 ml PO DAILY PRN (Reason: Constipation (see protocol)) Qty: 355 0RF metoprolol tartrate 25 mg Tablet 37.5 mg PO BID Qty: 90 0RF multivitamin with folic acid [Thera] 400 mcg Tablet 1 tab PO DAILY Qty: 30 0RF warfarin [Jantoven] 3 mg Tablet 3 mg PO DAILY@1400 Qty: 30 0RF Continued multivitamin Tablet 1 tab PO DAILY sennosides-docusate sodium 8.6-50 mg tablet 1 tab PO DAILY cholecalciferol (vitamin D3) 25 mcg (1,000 unit) capsule 25 mcg PO DAILY spironolactone 25 mg tablet 25 mg PO DAILY Qty: 90 3RF clopidogrel [Plavix] 75 mg tablet 75 mg PO DAILY Qty: 90 3RF potassium chloride 20 mEq tablet extended release 20 meq PO BID@10,21 Qty: 180 3RF alendronate 70 mg tablet See Rx Instructions .ROUTE .COMPLEX Qty: 4 6RF Dose Instruction: TAKE 1 TABLET BY MOUTH EVERY 7 DAYS Rx Instructions: TAKE 1 TABLET BY MOUTH EVERY 7 DAYS furosemide 40 mg tablet 40 mg PO DAILY Qty: 90 3RF levothyroxine 175 mcg tablet 175 mcg PO DAILY Qty: 30 6RF cyanocobalamin (vitamin B-12) 1,000 mcg tablet 2,500 mcg PO DAILY@1000 Discontinued atorvastatin 40 mg tablet See Rx Instructions .ROUTE .COMPLEX Qty: 30 6RF Dose Instruction: TAKE ONE TABLET BY MOUTH EVERY DAY Rx Instructions: TAKE ONE TABLET BY MOUTH EVERY DAY warfarin 4 mg tablet See Rx Instructions .ROUTE .COMPLEX Qty: 90 3RF Protocol: Dose Management Condition: Friday Dose/Route: 3 mg Instruction: 1 x 3 mg tablet Condition: Friday Dose/Route: 3 mg Instruction: 1 x 3 mg tablet Condition: Friday Dose/Route: 3 mg Instruction: 1 x 3 mg tablet Condition: Friday Dose/Route: 3 mg Instruction: 1 x 3 mg tablet Condition: Dose/Route: 3 mg Instruction: 1 x 3 mg tablet Condition: Friday Dose/Route: 3 mg Instruction: 1 x 3 mg tablet Condition: Friday Dose/Route: 3 mg Instruction: 1 x 3 mg tablet Protocol Text: Adjustment Start Date: Friday12/08/24 INR Value: 2.3 INR Date: 12/08/24 Recheck Date: 12/15/24 Dose Instruction: TAKE 1 TABLET BY MOUTH ON friday and Rx Instructions: TAKE 1 TABLET BY MOUTH ON friday and warfarin 3 mg tablet See Rx Instructions .ROUTE .COMPLEX Qty: 30 6RF Protocol: Dose Management Condition: Friday Dose/Route: 3 mg Instruction: 1 x 3 mg tablet Condition: Friday Dose/Route: 3 mg Instruction: 1 x 3 mg tablet Condition: Friday Dose/Route: 3 mg Instruction: 1 x 3 mg tablet Condition: Friday Dose/Route: 3 mg Instruction: 1 x 3 mg tablet Condition: Dose/Route: 3 mg Instruction: 1 x 3 mg tablet Condition: Friday Dose/Route: 3 mg Instruction: 1 x 3 mg tablet Condition: Friday Dose/Route: 3 mg Instruction: 1 x 3 mg tablet Protocol Text: Adjustment Start Date: Friday12/08/24 INR Value: 2.3 INR Date: 12/08/24 Recheck Date: 12/15/24 Dose Instruction: TAKE ONE TABLET BY MOUTH ON mondays, wednesdays, and fridays Rx Instructions: TAKE ONE TABLET BY MOUTH ON mondays, wednesdays, and fridays metoprolol tartrate 25 mg tablet 37.5 mg PO BID Qty: 270 3RF hydrocodone-acetaminophen 10-325 mg tablet 1 tab PO QID 30 Days Qty: 120 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 OK for DC: Orthopedics and Hospitalist Discharge Order = DC NOW: Discharge Order (Routine); Ordered 12/21/24 Ordered By: Jose Lewis Referrals: Oni Lundberg DO [Physician, Orthopedics] - 01/04/25 2:30 pm Ruy Palacio MD [Primary Care Provider, [facility]] Discharge Diet: Regular Discharge Activity: Limit activity as instructed and As per PT/OT instructions Patient Instructions: Hydrocodone/Acetaminophen (By mouth), Warfarin (By mouth), Acute Wound Care (DC), Hip Fracture (GEN), Post Anesthesia Care, Patient Portal & Jen Instructions Activity Restrictions/Additional Instructions: Orthopedic discharge instructions: Patient may partial weightbearing 30 to 50% to the operative lower extremity Physical therapy for right leg Take DVT prophylaxis (blood thinner as prescribed?resume Coumadin) Take pain medication as prescribed Take antinausea medication as needed Supplement with Citracal vitamin D for bone health and healing Ice as needed for pain and swelling No baths or soaks May supplement for pain with Tylenol [id number] as needed(1000 mg every 8 hours-do not exceed more than 3000mg in 24-hour period) Follow-up in the orthopedic office in 2 weeks from date of surgery Contact the office for any questions or concerns per (fevers, increased drainage or redness around the incision site etc.) Discharge Attestations Time Spent in Discharge Care*: less than 30 min Quality Metrics Clinical Quality Measures [ No reported AMI, CVA or VTE this stay] Coding Level of Care Code Acute Code for Chg Fwd Diagnoses Subcapital fracture of right hip S72.011A
[2024-12-21 13:51] VITALS: BP 121/79; PULSE 83; O2SAT 96
== END 2024-12-21 13:52 | disposition skilled nursing facility (03) | DRG 481 ==
LOC: ER 11:21 → MEDSURG 13:28
PROVIDERS: Student in an Organized Health Care Education/Training Program; Admitting Provider Student in an Organized Health Care Education/Training Program; Emergency Provider Emergency Medicine; PCP Family Medicine; Visit Provider Internal Medicine
PROC: 0QS634Z Reposition Right Upper Femur with Internal Fixation Device, Percutaneous Approach (ICD-10-PCS; 2024-12-18 08:00)
DX: S72.011A Unspecified intracapsular fracture of right femur, initial encounter for closed fracture (principal); N17.9 Acute kidney failure, unspecified; W19.XXXA Unspecified fall, initial encounter; I25.10 Atherosclerotic heart disease of native coronary artery without angina pectoris; E87.5 Hyperkalemia; I10 Essential (primary) hypertension; I27.20 Pulmonary hypertension, unspecified; E86.0 Dehydration; R19.7 Diarrhea, unspecified; F03.90 Unspecified dementia, unspecified severity, without behavioral disturbance, psychotic disturbance, mood disturbance, and anxiety; E03.9 Hypothyroidism, unspecified; I48.91 Unspecified atrial fibrillation; E78.5 Hyperlipidemia, unspecified; Z79.01 Long term (current) use of anticoagulants; Z95.2 Presence of prosthetic heart valve; Z95.5 Presence of coronary angioplasty implant and graft; Z95.0 Presence of cardiac pacemaker; Z79.02 Long term (current) use of antithrombotics/antiplatelets
CPT/HCPCS: 36415; 51702; 70450; 71045; 73020; 73070; 73200; 73502; 73523; 73700; 76000; 80053; 80061; 81001; 82550; 82607; 82746; 83036; 83540; 83550; 83605; 83735; 83880; 84100; 84132; 84145; 84439; 84443; 84481; 84484; 85025; 85610; 85730; 86850; 86900; 87040; 87426; 87493; 93005; 93306; 94664; 97110; 97116; 97161; 97167; 97530; 99285; C1713; J0690; J0696; J1644; J2371; J2405; J2470; J2704; J3010; J3430; J7030; J9999

== ENCOUNTER → 2025-01-04 14:31 | Outpatient (BNVA) | payer OTHER, MEDICAID, SELFPAY | PROVIDERS: PCP Family Medicine; Visit Provider Physician Assistant | DX: Z98.890 Other specified postprocedural states (principal) | CPT/HCPCS: 73502; 99024 ==

== ENCOUNTER → 2025-02-23 11:10 | Outpatient (BNVA) | payer OTHER, MEDICAID, SELFPAY | PROVIDERS: PCP Family Medicine; Visit Provider Internal Medicine Cardiovascular Disease | DX: Z45.018 Encounter for adjustment and management of other part of cardiac pacemaker (principal) | CPT/HCPCS: 93296 ==